=== PATIENT | female | born 1940 | race Caucasian/White ===

== ENCOUNTER 2017-07-14 12:24 | Emergency (ER) | payer BC ==
[~2017-07-14] VITALS: Ht 167.6 cm; Wt 42.0 kg
[~2017-07-14 12:24] MED LIST: ACET-1311 PO; ASPI81TA28 PO; BIOT1CAP8 PO; CALC-354 PO; CHOL1TAB2 PO; LAMO1TAB21 PO; MEGE40SU PO; PRLSR20 PO; SYN100 PO; TRET0.027 TOP
[2017-07-14 12:37] VITALS: TEMP 36.6; Ht 167.6 cm; Wt 42.0 kg
[2017-07-14] MEDS ORDERED: SODIUM CHLORIDE 0.9% 1000ML 1,000 ML IV STA (13:13)
--- NOTE | 2017-07-14 13:21 | EMERGENCY ROOM VISIT NOTE ---
History Report prepared by Princess: Neel Rizo Under the Supervision of: Dr. Tej Goodwin D.O. First contact with patient: 12:57 Chief Complaint: DIZZY Stated Complaint: DIZZY Nursing Triage Summary: pt reports she has been dizzy x 1 month worse today. fell last night in the dark fell onto buttock due to dizziness. Denies hitting head. Has also been losing weight over the past 10 months. History of Present Illness The patient is a 77 year old female who presents to the Emergency Room with complaints of dizziness that began 8 months ago. She notes that her dizziness has worsened recently over the past month. She has a past medical history of bipolar disorder and is taking Lamictal. She was sent to a psychologic hospital , but she was discharged saying her symptoms were a medical issue. She describes her dizziness and being off balance. She states she cannot walk or cook without difficulty. Nothing exacerbates her symptoms, but resting makes them better. She denies any chest pain or shortness of breath. She has been experiencing weight loss. She notes she has been having trouble with her right ear for two years but has not seen an ENT doctor. 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 Source of History: patient Onset: 8 months ago Position: other (global) Symptom Intensity: moderate Quality: other (Dizziness) Timing: worsening Associated Symptoms: No chest pain, No SOB Note: She is experiencing weight loss. Review of Systems See HPI for pertinent positives & negatives. A total of 10 systems reviewed and were otherwise negative. Past Medical & Surgical Medical Problems: (1) Bipolar disorder (2) Bladder cancer (3) Chronic obstructive lung disease (4) CKD (chronic kidney disease), stage IV (5) Dyslipidemia (6) Gastroesophageal reflux disease (7) History of kidney cancer (8) Hypothyroidism (9) Tobacco abuse (10) Urothelial cancer Surgical Problems: (1) H/O: hysterectomy (2) Hx of total knee arthroplasty (3) S/p nephrectomy Family History Diabetes mellitus FH: cancer FATHER (prostate CA) MOTHER (bone CA) Hypertension Social History Smoking Status: Current Every Day Smoker Smokeless Tobacco Use: No Alcohol Use: none Drug Use: none Marital Status: Housing Status: lives alone, lives with family Occupation Status: retired, other Current/Historical Medications Scheduled Aspirin (Aspirin Ec), 81 MG PO DAILY Biotin (Biotin), 1 MG PO DAILY Calcium Carbonate-Cholecalcife (Caltrate 600+D), 1 TAB PO DAILY Lamotrigine (Lamotrigine), 150 MG PO DAILY Levothyroxine Sodium (Levothyroxine Sodium), 88 MCG PO DAILY Tretinoin (Tretinoin), 1 APPLN TOP HS Scheduled PRN Acetaminophen (Tylenol), 650 MG PO Q4 PRN for Headache or Pain Allergies Coded Allergies: Penicillins (Verified Allergy, Mild, RASH, 07/14/17) pt stated has had more recently with no reaction Physical Exam Vital Signs Date Time Temp Pulse Resp B/P (MAP) Pulse Ox O2 Delivery O2 Flow Rate FiO2 07/14/17 15:02 76 20 156/79 95 07/14/17 13:42 77 20 120/77 98 Room Air 07/14/17 13:39 80 18 124/75 97 Room Air 78 147/60 85 120/77 07/14/17 13:01 99 07/14/17 12:37 36.6 108 18 151/87 99 Room Air Physical Exam GENERAL: Patient is awake, alert, and in no acute distress. Patient is resting comfortably and showing no signs of anxiety EYES: The conjunctivae are clear. The pupils are round and reactive. EARS, NOSE, MOUTH AND THROAT: The nose is without any evidence of any deformity. Mucous membranes are moist tongue is midline. TM's clear bilaterally. NECK: The neck is nontender and supple. RESPIRATORY: Normal respiratory effort is noted there is no evidence of wheezing rhonchi or rales CARDIOVASCULAR: Regular rate and rhythm noted there no murmurs rubs or gallops normal S1 normal S2 GASTROINTESTINAL: The abdomen is soft. Bowel sounds are present in all quadrants. Abdomen is nontender MUSCULOSKELETAL/EXTREMITIES: There is no evidence of gross deformity full range of motion is noted in the hips and shoulders SKIN: There is no obvious evidence of any rash. There are no petechiae, pallor or cyanosis noted. NEUROLOGIC: Patient is awake alert and oriented x3 strength is symmetric patellar reflexes are 2+ bilaterally Medical Decision & Procedures ER Provider Diagnostic Interpretation: Radiology results as stated below per my review and radiologist interpretation: CT OF THE HEAD WITHOUT CONTRAST CLINICAL HISTORY: Dizzy. Altered mental status. Weakness. COMPARISON STUDY: Head CT July 20, 2016. CT DOSE: 537.48 mGy.cm TECHNIQUE: Helical axial images of the head were obtained without IV contrast. Automated exposure control was utilized for the study. A dose lowering technique was utilized adhering to the principles of ALARA. FINDINGS: No acute intracranial hemorrhage, midline shift or mass effect is present. Ventricular system is normal for age. Basilar cisterns are patent. There are no extra-axial collections. White matter hypodensity suggests small vessel disease. There are no findings to suggest acute dural sinus thrombosis or acute territorial infarct. There is bilateral basal ganglia calcification. There is no calvarial fracture. Visualized portions of the sinuses and the mastoid air cells are clear. IMPRESSION: No acute intracranial findings. Electronically signed by: Lamont Alcazar M.D. 07/14/2017 1:43 PM Dictated Date/Time: 07/14/2017 1:41 PM CHEST ONE VIEW PORTABLE CLINICAL HISTORY: Dizzy. Altered mental status. COMPARISON STUDY: Chest radiograph September 19, 2016. FINDINGS: A left subclavian Sgrfki-s-Rdxz remains in place. There is no pneumothorax or pleural effusion. There is no consolidation to suggest pneumonia and there is no evidence of pulmonary edema. Levoscoliosis at the thoracolumbar junction is incidentally noted. IMPRESSION: No acute cardiopulmonary findings. Electronically signed by: Lamont Alcazar M.D. 07/14/2017 2:10 PM Dictated Date/Time: 07/14/2017 2:08 PM Laboratory Results 07/14/17 13:10 Red Blood Count 4.21, Mean Corpuscular Volume 99.8, Mean Corpuscular Hemoglobin 33.3, Mean Corpuscular Hemoglobin Concent 33.3, Mean Platelet Volume 10.0, Neutrophils (%) (Auto) 75.8, Lymphocytes (%) (Auto) 16.9, Monocytes (%) (Auto) 6.1, Eosinophils (%) (Auto) 0.6, Basophils (%) (Auto) 0.4, Neutrophils # (Auto) 3.86, Lymphocytes # (Auto) 0.86, Monocytes # (Auto) 0.31, Eosinophils # (Auto) 0.03, Basophils # (Auto) 0.02 07/14/17 13:10 Test 07/14/17 13:10 White Blood Count 5.09 K/uL (4.8-10.8) Red Blood Count 4.21 M/uL (4.2-5.4) Hemoglobin 14.0 g/dL (12.0-16.0) Hematocrit 42.0 % (37-47) Mean Corpuscular Volume 99.8 fL (80-100) Mean Corpuscular Hemoglobin 33.3 pg (25-34) Mean Corpuscular Hemoglobin Concent 33.3 g/dl (32-36) Platelet Count 289 K/uL (130-400) Mean Platelet Volume 10.0 fL (7.4-10.4) Neutrophils (%) (Auto) 75.8 % Lymphocytes (%) (Auto) 16.9 % Monocytes (%) (Auto) 6.1 % Eosinophils (%) (Auto) 0.6 % Basophils (%) (Auto) 0.4 % Neutrophils # (Auto) 3.86 K/uL (1.4-6.5) Lymphocytes # (Auto) 0.86 K/uL (1.2-3.4) Monocytes # (Auto) 0.31 K/uL (0.11-0.59) Eosinophils # (Auto) 0.03 K/uL (0-0.5) Basophils # (Auto) 0.02 K/uL (0-0.2) RDW Standard Deviation 48.1 fL (36.4-46.3) RDW Coefficient of Variation 13.1 % (11.5-14.5) Immature Granulocyte % (Auto) 0.2 % Immature Granulocyte # (Auto) 0.01 K/uL (0.00-0.02) Prothrombin Time 9.7 SECONDS (9.0-12.0) Prothromb Time International Ratio 0.9 (0.9-1.1) Activated Partial Thromboplast Time 23.7 SECONDS (21.0-31.0) Partial Thromboplastin Ratio 0.9 Anion Gap 7.0 mmol/L (3-11) Est Creatinine Clear Calc Drug Dose 18.1 ml/min Estimated GFR () 32.9 Estimated GFR (Non- 28.4 BUN/Creatinine Ratio 24.8 (10-20) Calcium Level 10.2 mg/dl (8.5-10.1) Magnesium Level 2.3 mg/dl (1.8-2.4) Total Bilirubin 0.4 mg/dl (0.2-1) Direct Bilirubin 0.1 mg/dl (0-0.2) Aspartate Amino Transf (AST/SGOT) 19 U/L (15-37) Alanine Aminotransferase (ALT/SGPT) 23 U/L (12-78) Alkaline Phosphatase 68 U/L (45-117) Troponin I < 0.015 ng/ml (0-0.045) Total Protein 8.6 gm/dl (6.4-8.2) Albumin 4.5 gm/dl (3.4-5.0) Thyroid Stimulating Hormone (TSH) 3.260 uIu/ml (0.300-4.500) Laboratory results per my review. Medications Administered Medications (Trade) Dose Ordered Sig/Kim Route Start Time Stop Time Status Last Admin Dose Admin Sodium Chloride 1,000 ml @ 999 mls/hr Q1H1M STAT IV 07/14/17 13:13 07/14/17 14:13 DC 07/14/17 13:15 999 MLS/HR ECG Indication: other (Dizziness) Rate (beats per minute): 98 Rhythm: normal sinus Findings: no ectopy, other (No acute STS) Comparison ECG Date: 19 Sep 2016 Change: no significant change ED Course 1257: The patient was evaluated in room C2B. A complete history and physical examination were performed. 1313: Ordered NSS 1,000 ml @ 999 mls/hr IV 1500: Upon reevaluation, the patient is resting. I discussed the results and treatment plan with her. She verbalized agreement of the treatment plan. She was discharged home. Medical Decision Differential diagnosis: Etiologies such as benign positional vertigo, dehydration, hypovolemia, anemia, tumor, infection, hypoglycemia, electrolyte abnormalities, cardiac sources, intracerebral event, toxicologic, neurologic, as well as others were entertained. Nursing notes reviewed. The patient is a 77-year-old female who presented to the emergency department for dizziness. She describes dizziness which sounds similar to disequilibrium or vertigo. She had no focal neurologic deficit. The patient states that she's had similar episodes in the past. I discussed the patient's laboratory and radiographic studies with her. She was reevaluated multiple times. She was encouraged to rest and avoid any strenuous activity. She was treated with IV fluids. She was encouraged to follow-up with the family doctor soon as possible return to emergency apartment immediately if symptoms change worsen or the need arises. Medication Reconcilliation Current Medication List: was personally reviewed by me Blood Pressure Screening Patient's blood pressure: Elevated blood pressure Blood pressure disposition: Elevated BP felt to be situational Impression Primary Impression: Dizziness Scribe Attestation The scribe's documentation has been prepared under my direction and personally reviewed by me in its entirety. I confirm that the note above accurately reflects all work, treatment, procedures, and medical decision making performed by me. Departure Information Dispostion Home / Self-Care Referrals Aries Blake D.O. Forms HOME CARE DOCUMENTATION FORM, IMPORTANT VISIT INFORMATION Patient Instructions ED Dizziness [facility], My [facility] Additional Instructions Continue all medications as prescribed. Call your family to schedule a follow-up appointment. Drink plenty clear liquids.
[2017-07-14 13:41] LABS: BASO % 0.4 %; BASO ABS # 0.02 K/uL (0-0.2); COMPLETE YES; EOS % 0.6 %; IG% 0.2 %; LYMPH % 16.9 %; LYMPH ABS # 0.86 K/uL (1.2-3.4); MEAN CELL VOLUME 99.8 fL (80-100); MEAN CORPUSCULAR HEMOGLOBIN 33.3 pg (25-34); MEAN CORPUSCULAR HGB CONC 33.3 g/dl (32-36); MONO % 6.1 %; NEUT % 75.8 %; PLATELET COUNT 289 K/uL (130-400); RED BLOOD COUNT 4.21 M/uL (4.2-5.4); WHITE BLOOD COUNT 5.09 K/uL (4.8-10.8)
--- NOTE | 2017-07-14 13:44 | DIAGNOSTIC IMAGING REPORT ---
CT OF THE HEAD WITHOUT CONTRAST CLINICAL HISTORY: Dizzy. Altered mental status. Weakness. COMPARISON STUDY: Head CT July 20, 2016. CT DOSE: 537.48 mGy.cm TECHNIQUE: Helical axial images of the head were obtained without IV contrast. Automated exposure control was utilized for the study. A dose lowering technique was utilized adhering to the principles of ALARA. FINDINGS: No acute intracranial hemorrhage, midline shift or mass effect is present. Ventricular system is normal for age. Basilar cisterns are patent. There are no extra-axial collections. White matter hypodensity suggests small vessel disease. There are no findings to suggest acute dural sinus thrombosis or acute territorial infarct. There is bilateral basal ganglia calcification. There is no calvarial fracture. Visualized portions of the sinuses and the mastoid air cells are clear. IMPRESSION: No acute intracranial findings. Electronically signed by: Lamont Alcazar M.D. 07/14/2017 1:43 PM Dictated Date/Time: 07/14/2017 1:41 PM
[2017-07-14 13:59] LABS: ALT/SGPT 23 U/L (12-78); BLOOD UREA NITROGEN 42 mg/dl (7-18); BUN/CREATININE RATIO 24.8 (10-20); CALCIUM 10.2 mg/dl (8.5-10.1); CARBON DIOXIDE 24 mmol/L (21-32); CHLORIDE 108 mmol/L (98-107); GLUCOSE 114 mg/dl (70-99); MAGNESIUM 2.3 mg/dl (1.8-2.4); POTASSIUM 4.2 mmol/L (3.5-5.1); SODIUM 139 mmol/L (136-145)
[2017-07-14 14:10] LABS: ALKALINE PHOSPHATASE 68 U/L (45-117); AST/SGOT 19 U/L (15-37)
--- NOTE | 2017-07-14 14:11 | DIAGNOSTIC IMAGING REPORT ---
CHEST ONE VIEW PORTABLE CLINICAL HISTORY: Dizzy. Altered mental status. COMPARISON STUDY: Chest radiograph September 19, 2016. FINDINGS: A left subclavian Doyvjc-w-Jend remains in place. There is no pneumothorax or pleural effusion. There is no consolidation to suggest pneumonia and there is no evidence of pulmonary edema. Levoscoliosis at the thoracolumbar junction is incidentally noted. IMPRESSION: No acute cardiopulmonary findings. Electronically signed by: Lamont Alcazar M.D. 07/14/2017 2:10 PM Dictated Date/Time: 07/14/2017 2:08 PM
[2017-07-14 14:13] LABS: INR 0.9 (0.9-1.1); PARTIAL THROMBOPLASTIN RATIO 0.9; PROTHROMBIN TIME (PATIENT) 9.7 SECONDS (9.0-12.0)
[2017-07-14] MEDS ORDERED: LEVO88TA3 PO (14:15)
[2017-07-14 15:02] VITALS: BP 156/79; PULSE 76; O2SAT 95
== END 2017-07-14 15:05 | disposition home or self-care (01) ==
LOC: EDUNIT# 12:24 → C.EDB 12:24 → C.EDC 15:05
DX: R42 Dizziness and giddiness (principal); F31.9 Bipolar disorder, unspecified; Z85.51 Personal history of malignant neoplasm of bladder; J44.9 Chronic obstructive pulmonary disease, unspecified; N18.4 Chronic kidney disease, stage 4 (severe); E78.5 Hyperlipidemia, unspecified; K21.9 Gastro-esophageal reflux disease without esophagitis; Z85.528 Personal history of other malignant neoplasm of kidney; E03.9 Hypothyroidism, unspecified; Z83.3 Family history of diabetes mellitus; Z82.49 Family history of ischemic heart disease and other diseases of the circulatory system; Z80.9 Family history of malignant neoplasm, unspecified; F17.210 Nicotine dependence, cigarettes, uncomplicated; Z79.82 Long term (current) use of aspirin; Z79.899 Other long term (current) drug therapy

== ENCOUNTER → 2017-07-31 | Outpatient (CLI) | payer BC ==
[~2017-07-31] MED LIST changes: -CHOL1TAB2 PO; +LEVO88TA3 PO; -MEGE40SU PO; -PRLSR20 PO; -SYN100 PO
--- NOTE | 2017-07-31 14:55 | ECHOCARDIOGRAM REPORT ---
*NOTICE TO RECEIVING REPUBLICAN AGENCY This information is strictly Confidential and protected under [place] law. [place] law prohibits you from making any further disclosure of this information unless further disclosure is expressly permitted by the written consent of the person to whom it pertains or is authorized by law. A general authorization for the release of medical or other information is not sufficient for this purpose. Hospital accepts no responsibility if the information is made available to any other person, INCLUDING THE PATIENT. Interpretation Summary * Name: ANNA LUA Study Date: 07/31/2017 12:35 PM BP: 140/76 mmHg * Patient Location: [facility] HR: 74 * : 1940 (M/d/yyyy) Gender: Female Height: 65 in * Age: 77 yrs Ethnicity: [place] Weight: 98 lb * Ordering Physician: Aries Blake * Referring Physician: Aries Blake D.O. * Performed By: Laura Mcgill * * Reason For Study: ABNORMAL EKG, DIZZINESS * BSA: 1.5 m2 * -- Conclusions -- * 1. Normal left ventricular size and systolic function. EF 60-65%. No regional wall motion abnormalities. No left ventricular hypertrophy. Type 1 diastolic dysfunction. * 2. Aortic valve sclerosis mild, without significant aortic valvular stenosis. * 3. There is mild mitral regurgitation. * 4. Normal estimated right ventricular systolic pressure. Procedure Details * A complete two-dimensional transthoracic echocardiogram was performed (2D, M-mode, Doppler and color flow Doppler). Left Ventricle * Normal left ventricular size and systolic function. EF 60-65%. No regional wall motion abnormalities. No left ventricular hypertrophy. Type 1 diastolic dysfunction. Right Ventricle * The right ventricle is normal in size and function. Atria * The left atrial size is normal. * Right atrial size is normal. * There is no evidence of atrial septal defect, but resolution does not allow assessment for a patent foramen ovale. Mitral Valve * The mitral valve is grossly normal. * Mild systolic anterior motion of chordal structure without LVOT obstruction. * There is no mitral valve stenosis. * There is mild mitral regurgitation. Tricuspid Valve * The tricuspid valve is not well visualized, but is grossly normal. * There is no tricuspid stenosis. * There is mild tricuspid regurgitation. Aortic Valve * The aortic valve is trileaflet. * Aortic valve sclerosis mild, without significant aortic valvular stenosis. * No hemodynamically significant valvular aortic stenosis. * There is no significant aortic regurgitation. Pulmonic Valve * The pulmonary valve is inadequately visualized, but the Doppler data is adequate for interpretation. * There is no pulmonic valvular stenosis. * There is no significant pulmonary regurgitation. Great Vessels * The aortic root is normal size. Pericardium/Pleural * There is no pericardial effusion. Great Vessels * Normal inferior vena cava size and collapsability with sniff indicates a normal right atrial pressure of 3 mmHg MMode 2D Measurements and Calculations IVSd 0.72 cm IVSs 1.4 cm LVIDd 3.9 cm LVIDs 1.8 cm LVPWd 0.79 cm LVPWs 1.4 cm IVS/LVPW 0.91 FS 54.7 % EDV(Teich) 64.6 ml ESV(Teich) 9.1 ml EF(Teich) 86.0 % EDV(cubed) 57.9 ml ESV(cubed) 5.4 ml EF(cubed) 90.7 % % IVS thick 98.7 % % LVPW thick 79.4 % LV mass(C)d 82.4 grams LV mass(C)dI 56.4 grams/m\S\2 LV mass(C)s 77.8 grams LV mass(C)sI 53.3 grams/m\S\2 SV(Teich) 55.6 ml SI(Teich) 38.0 ml/m\S\2 SV(cubed) 52.5 ml SI(cubed) 35.9 ml/m\S\2 Ao root diam 3.1 cm Ao root area 7.6 cm\S\2 ACS 1.6 cm LA dimension 2.5 cm LA/Ao 0.80 LVOT diam 1.8 cm LVOT area 2.4 cm\S\2 LVAd ap4 22.3 cm\S\2 LVLd ap4 6.6 cm EDV(MOD-sp4) 62.8 ml EDV(sp4-el) 64.7 ml LVAs ap4 12.6 cm\S\2 LVLs ap4 5.8 cm ESV(MOD-sp4) 24.3 ml ESV(sp4-el) 23.9 ml EF(MOD-sp4) 61.3 % EF(sp4-el) 63.1 % LVAd ap2 18.5 cm\S\2 LVLd ap2 6.8 cm EDV(MOD-sp2) 43.3 ml EDV(sp2-el) 42.7 ml LVAs ap2 9.7 cm\S\2 LVLs ap2 5.2 cm ESV(MOD-sp2) 16.1 ml ESV(sp2-el) 15.3 ml EF(MOD-sp2) 62.8 % EF(sp2-el) 64.1 % LVLd %diff 3.6 % EDV(MOD-bp) 56.6 ml LVLs %diff -14.05 % ESV(MOD-bp) 18.7 ml EF(MOD-bp) 67.0 % SV(MOD-sp4) 38.5 ml SI(MOD-sp4) 26.3 ml/m\S\2 SV(MOD-sp2) 27.2 ml SI(MOD-sp2) 18.6 ml/m\S\2 SV(MOD-bp) 37.9 ml SI(MOD-bp) 26.0 ml/m\S\2 SV(sp4-el) 40.8 ml SI(sp4-el) 27.9 ml/m\S\2 SV(sp2-el) 27.4 ml SI(sp2-el) 18.7 ml/m\S\2 Doppler Measurements and Calculations MV E max jerri 70.5 cm/sec MV A max jerri 90.6 cm/sec MV E/A 0.78 MV dec time 0.20 sec Ao V2 max 94.5 cm/sec Ao max PG 3.6 mmHg Ao max PG (full) 1.1 mmHg JOSE(V,A) 2.0 cm\S\2 JOSE(V,D) 2.0 cm\S\2 LV V1 max PG 2.4 mmHg LV V1 max 78.0 cm/sec MR max jerri 567.7 cm/sec MR max PG 128.9 mmHg PA V2 max 45.0 cm/sec PA max PG 0.81 mmHg TR max jerri 223.7 cm/sec RVSP(TR) 23.0 mmHg RAP systole 3.0 mmHg
== END | disposition home or self-care (01) ==
LOC: C.CPL 12:13
PROVIDERS: ATTEND Internal Medicine
DX: R42 Dizziness and giddiness (principal); R94.31 Abnormal electrocardiogram [ECG] [EKG]

== ENCOUNTER → 2017-10-12 | Outpatient (CLI) | payer BC ==
[2017-10-12 16:55] LABS: ALT/SGPT 18 U/L (12-78); BLOOD UREA NITROGEN 45 mg/dl (7-18); CALCIUM 10.9 mg/dl (8.5-10.1); CARBON DIOXIDE 26 mmol/L (21-32); CHLORIDE 106 mmol/L (98-107); CREATININE 1.68 mg/dl (0.60-1.20); GLUCOSE 99 mg/dl (70-99); POTASSIUM 4.4 mmol/L (3.5-5.1); SODIUM 140 mmol/L (136-145)
[2017-10-12 16:58] LABS: ALB/GLOB RATIO 1.1 (0.9-2); ALKALINE PHOSPHATASE 82 U/L (45-117); AST/SGOT 12 U/L (15-37)
== END | disposition home or self-care (01) ==
LOC: C.LAB 15:06
PROVIDERS: ATTEND Urology
DX: C64.9 Malignant neoplasm of unspecified kidney, except renal pelvis (principal); C67.9 Malignant neoplasm of bladder, unspecified

== ENCOUNTER → 2017-10-23 | Outpatient (CLI) | payer BC ==
--- NOTE | 2017-10-23 13:43 | DIAGNOSTIC IMAGING REPORT ---
CT SCAN OF THE ABDOMEN AND PELVIS WITHOUT IV CONTRAST CLINICAL HISTORY: History of urothelial carcinoma. COMPARISON STUDY: Abdominal CT dated . PET CT dated 02/05/2013. TECHNIQUE: CT scan of the abdomen and pelvis is performed from the lung bases to the proximal femora. Images reviewed in the axial, sagittal, and coronal planes. IV contrast was not administered for this examination as per the referring clinician. Note that the examination is suboptimal without oral and IV contrast. The examination is degraded by motion artifact. A dose lowering protocol was used according to the presence of ALARA. CT DOSE: 186.00 mGycm FINDINGS: Lung bases: The heart is normal in size and without pericardial effusion. The aortic valve leaflets are densely calcified. Scarring/atelectasis is again seen in the right middle lobe. No airspace consolidation or pleural effusion is identified. Liver: The unenhanced liver is normal in size, contour, and attenuation. There is no intrahepatic biliary ductal dilatation. Gallbladder: Distended and grossly unremarkable. Spleen: Normal in size and attenuation. Pancreas: The unenhanced pancreas is atrophic and grossly unremarkable. Adrenal glands: Unremarkable. Kidneys: Left kidney is surgically absent. The unenhanced right kidney demonstrate mild cortical atrophy and is without hydronephrosis. There is a right-sided extrarenal pelvis. No right renal calculi are Identified. There is no evidence of contour deforming renal mass lesion. Abdominal vasculature: The abdominal aorta is normal in course and caliber noting advanced atherosclerotic calcification. Bowel: The small bowel and colon are normal in course and caliber. There is moderate constipation. The appendix is well-visualized and normal. Peritoneum: There is no intraperitoneal free air or abdominal ascites. Lymphadenopathy: A mildly enlarged aortocaval node is questioned on image #99 measuring 1.3 cm in short axis. Pelvic viscera: The bladder is normal as visualized. Calcified uterine fibroids are identified. No adnexal lesion is seen. Surgical clips are present in the left pelvis. A stimulator device is present in the right gluteal region. Leads terminate in the right pelvis. The iliopsoas musculature is markedly atrophic. Pelvic floor prolapse is suggested. Skeletal structures: The skeletal structures are osteopenic. No lytic or blastic bony lesions are seen. There is advanced lumbosacral spondylosis as well as scoliosis. There is a moderate and chronic compression deformity again seen involving T12. Soft tissues: The patient is cachectic. IMPRESSION: 1. Suboptimal examination without oral and IV contrast. The examination is also degraded by motion artifact. 2. Mildly enlarged retroperitoneal lymph nodes are identified but difficult to assess. The retrocaval node seen on 01/22/2016 is not well delineated. 3. The left kidney is surgically absent. 4. There are no acute infectious or inflammatory findings in the abdomen or pelvis. 5. Additional changes as detailed above. Electronically signed by: Gregory Freeman M.D. 10/23/2017 1:41 PM Dictated Date/Time: 10/23/2017 1:24 PM
== END | disposition home or self-care (01) ==
LOC: C.CTS 12:50
PROVIDERS: ATTEND Urology
DX: C67.9 Malignant neoplasm of bladder, unspecified (principal); C64.9 Malignant neoplasm of unspecified kidney, except renal pelvis; N39.0 Urinary tract infection, site not specified

== ENCOUNTER 2018-03-06 11:40 | Inpatient (IN) | payer BC, OTHER ==
[~2018-03-06] VITALS: Ht 167.6 cm; Wt 43.2 kg
[2018-03-06] MEDS ORDERED: QUET1TAB30 PO (12:03)
[2018-03-06] MEDS ORDERED: LITH150C PO (12:03)
[2018-03-06] MEDS ORDERED: LMC25 PO (12:03)
[2018-03-06] MEDS ORDERED: VLM5CL PO (12:03)
[2018-03-06] MEDS ORDERED: SODIUM CHLORIDE 0.9% 1000ML 1,000 ML IV STA (12:19)
[2018-03-06 12:36] LABS: BASO % 0.4 %; BASO ABS # 0.03 K/uL (0-0.2); EOS % 1.4 %; EOS ABS # 0.11 K/uL (0-0.5); HEMATOCRIT 38.8 % (37-47); HEMOGLOBIN 12.3 g/dL (12.0-16.0); IG# 0.01 K/uL (0.00-0.02); LYMPH % 15.9 %; LYMPH ABS # 1.29 K/uL (1.2-3.4); MEAN CELL VOLUME 104.6 fL (80-100); MEAN CORPUSCULAR HEMOGLOBIN 33.2 pg (25-34); MEAN CORPUSCULAR HGB CONC 31.7 g/dl (32-36); MEAN PLATELET VOLUME 9.5 fL (7.4-10.4); MONO % 4.9 %; NEUT % 77.3 %; NEUT ABS # 6.27 K/uL (1.4-6.5); PLATELET COUNT 283 K/uL (130-400); RED CELL DISTRIBUTION WIDTH CV 13.5 % (11.5-14.5); RED CELL DISTRIBUTION WIDTH SD 51.4 fL (36.4-46.3); WHITE BLOOD COUNT 8.11 K/uL (4.8-10.8)
[2018-03-06 12:45] LABS: INR 0.9 (0.9-1.1); PTT PATIENT 23.6 SECONDS (21.0-31.0)
[2018-03-06 12:57] LABS: ALBUMIN 4.3 gm/dl (3.4-5.0); ALT/SGPT 28 U/L (12-78); BLOOD UREA NITROGEN 33 mg/dl (7-18); CARBON DIOXIDE 25 mmol/L (21-32); CREATININE 1.58 mg/dl (0.60-1.20); GLUCOSE 98 mg/dl (70-99); POTASSIUM 4.2 mmol/L (3.5-5.1); SODIUM 141 mmol/L (136-145)
[2018-03-06 13:02] LABS: ALKALINE PHOSPHATASE 95 U/L (45-117); AST/SGOT 25 U/L (15-37); TOTAL PROTEIN 8.2 gm/dl (6.4-8.2)
--- NOTE | 2018-03-06 13:24 | DIAGNOSTIC IMAGING REPORT ---
HEAD WITHOUT CONTRAST (CT) CLINICAL HISTORY: 77 years-old Female presenting with AMS, dizziness. TECHNIQUE: Multidetector CT imaging of the head was performed without the use of intravenous contrast. IV contrast: None. A dose lowering technique was used consistent with the principles of ALARA (as low as reasonably achievable). COMPARISON: 07/14/2017. CT DOSE (mGy.cm): The estimated cumulative dose is 958.25 mGy.cm. FINDINGS: [employer] topogram: Unremarkable. Ventricles and sulci normal in size. Periventricular and subcortical white matter hypoattenuation, nonspecific but likely indicative of chronic small vessel ischemic change. No mass effect or midline shift. No hemorrhage or acute territorial infarct. No extra-axial fluid collection. Paranasal sinuses and mastoid air cells clear. Calvarium intact. IMPRESSION: 1. Chronic small vessel ischemic change. No acute intracranial abnormality. Electronically signed by: Paul Lam M.D. 03/06/2018 1:23 PM Dictated Date/Time: 03/06/2018 1:19 PM
--- NOTE | 2018-03-06 13:53 | DIAGNOSTIC IMAGING REPORT ---
CHEST ONE VIEW PORTABLE HISTORY: 77 years-old Female AMS acute altered mental status COMPARISON: Chest radiograph 07/14/2017 TECHNIQUE: Portable AP view of the chest FINDINGS: Cardiomediastinal and hilar silhouettes are within normal limits. Atherosclerosis of the aorta. Unchanged positioning of the left subclavian Lzsing-y-Ognj catheter. There is no pneumothorax, pleural effusion, focal airspace consolidation or overt pulmonary edema. Nodular density projecting over the anterior right sixth rib may reflect a nipple shadow. There is an ill-defined 2.4 x 2.2 cm opacity of the right perihilar lung which appears new from prior study. Minimal background interstitial coarsening with hyperinflation redemonstrated. Bones of the chest appear grossly intact. Degenerative changes are seen within the shoulders and spine. Suspected rotator cuff calcific tendinosis on the right. IMPRESSION: Ill-defined 2.4 cm round opacity of the right perihilar lung is indeterminate. This could be further evaluated with a follow-up chest CT. The above report was generated using voice recognition software. It may contain grammatical, syntax or spelling errors. Electronically signed by: Rene Royal M.D. 03/06/2018 1:52 PM Dictated Date/Time: 03/06/2018 1:48 PM
[2018-03-06] MEDS ORDERED: SODIUM CHLORIDE 0.9% 1000ML 1,000 ML IV SCH (15:00)
[2018-03-06] MEDS ORDERED: ALUMINUM/MAGNESIUM/SIMETH (MAALOX MAX) 30 ML UDC PO PRN (15:00)
[2018-03-06] MEDS ORDERED: ONDANSETRON INJ 2 MG/ML 2 ML VIAL IV PRN (15:00)
[2018-03-06] MEDS ORDERED: MAGNESIUM HYDROXIDE SUSP 30 ML UDC PO PRN (15:00)
--- NOTE | 2018-03-06 15:19 | EMERGENCY ROOM VISIT NOTE ---
History Report prepared by Princess: Mo Saunders Under the Supervision of: Dr. Vladimir Saavedra D.O. First contact with patient: 12:12 Chief Complaint: ALTERED MENTAL STATUS Stated Complaint: CONFUSION Nursing Triage Summary: Patient to ED via EMS from provider, EMS states "patient was at a dentist's office for an appointment on with her psychiatrist, acting confused and agitated." Patient oriented to self at time of triage, believes it is and she is at [facility]. C/O dizziness, reports fall four days ago, states "I hurt my legs, both of them." History of Present Illness The patient is a 77 year old female who presents to the Emergency Room by EMS with complaints of constant altered mental status. She also complains of dizziness. She is noted to have fallen four days ago. The patient lives alone at home. Per EMS report, the patient has an appointment with her psychiatrist tomorrow. They state that the patient showed up to her dentist's office today for the psychiatrist appointment tomorrow. EMS was called to get the patient. Pt denies pain with urination. HPI limited secondary to altered mental status. Source of History: patient History Limited By: AMS Quality: other (altered mental status) Timing: constant Associated Symptoms: No urinary symptoms (pain with urination) Note: Positive: dizziness. Review of Systems ROS limited secondary to AMS. 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 Surgical Problems: (1) H/O: hysterectomy (2) Hx of total knee arthroplasty (3) S/p nephrectomy Family History Diabetes mellitus FH: cancer FATHER (prostate CA) MOTHER (bone CA) Hypertension Social History Smoking Status: Current Every Day Smoker Alcohol Use: none Drug Use: none Marital Status: Housing Status: lives alone, lives with family Occupation Status: retired, other Current/Historical Medications Scheduled Aspirin (Aspirin Ec), 81 MG PO DAILY Biotin (Biotin), 1 MG PO DAILY Calcium Carbonate-Cholecalcife (Caltrate 600+D), 1 TAB PO DAILY Diazepam (Diazepam), 5 MG PO DAILY Lamotrigine (Lamotrigine), 25 MG PO HS Levothyroxine Sodium (Levothyroxine Sodium), 88 MCG PO DAILY Homeworth Carbonate (Homeworth Carbonate), 150 MG PO BID Quetiapine Fumarate (Seroquel), 25 MG PO HS Scheduled PRN Acetaminophen (Tylenol), 650 MG PO Q4 PRN for Headache or Pain Allergies Coded Allergies: Penicillins (Verified Allergy, Mild, RASH, 07/14/17) pt stated has had more recently with no reaction Physical Exam Vital Signs Date Time Temp Pulse Resp B/P (MAP) Pulse Ox O2 Delivery O2 Flow Rate FiO2 03/06/18 14:19 90 21 132/64 100 Room Air 03/06/18 13:25 70 22 132/64 99 Room Air 03/06/18 12:03 78 03/06/18 12:00 100 03/06/18 11:55 37.0 78 24 164/85 99 Room Air Physical Exam GENERAL: Sitting up in bed, lethargic, responds to verbal commands. EYE EXAM: normal conjunctiva. PERRL and EOM's intact. OROPHARYNX: no exudate, no erythema, lips, buccal mucosa, and tongue normal and mucous membranes are dry. NECK: supple, no nuchal rigidity, no adenopathy, non-tender LUNGS: Clear to auscultation. Normal chest wall mechanics HEART: no murmurs, S1 normal and S2 normal ABDOMEN: abdomen soft, non-tender, normo-active bowel sounds, no masses, no rebound or guarding. BACK: Back is symmetrical on inspection and there is no deformity, no midline tenderness, no CVA tenderness. SKIN: no rashes and no bruising UPPER EXTREMITIES: upper extremities are grossly normal. LOWER EXTREMITIES: No pitting edema. NEURO EXAM: Awake, not oriented to place or time. CN 2-12 intact. No weakness in the upper or lower extremities. Medical Decision & Procedures ER Provider Diagnostic Interpretation: Radiology results as stated below per my review and the radiologist's interpretation: HEAD WITHOUT CONTRAST (CT) FINDINGS: Disassembler topogram: Unremarkable. Ventricles and sulci normal in size. Periventricular and subcortical white matter hypoattenuation, nonspecific but likely indicative of chronic small vessel ischemic change. No mass effect or midline shift. No hemorrhage or acute territorial infarct. No extra-axial fluid collection. Paranasal sinuses and mastoid air cells clear. Calvarium intact. IMPRESSION: 1. Chronic small vessel ischemic change. No acute intracranial abnormality. Electronically signed by: Paul Lam M.D. 03/06/2018 1:23 PM CHEST ONE VIEW PORTABLE FINDINGS: Cardiomediastinal and hilar silhouettes are within normal limits. Atherosclerosis of the aorta. Unchanged positioning of the left subclavian Lvhlus-y-Fygw catheter. There is no pneumothorax, pleural effusion, focal airspace consolidation or overt pulmonary edema. Nodular density projecting over the anterior right sixth rib may reflect a nipple shadow. There is an ill-defined 2.4 x 2.2 cm opacity of the right perihilar lung which appears new from prior study. Minimal background interstitial coarsening with hyperinflation redemonstrated. Bones of the chest appear grossly intact. Degenerative changes are seen within the shoulders and spine. Suspected rotator cuff calcific tendinosis on the right. IMPRESSION: Ill-defined 2.4 cm round opacity of the right perihilar lung is indeterminate. This could be further evaluated with a follow-up chest CT. The above report was generated using voice recognition software. It may contain grammatical, syntax or spelling errors. Electronically signed by: Rene Royal M.D. 03/06/2018 1:52 PM Laboratory Results 03/06/18 12:28 Red Blood Count 3.71, Mean Corpuscular Volume 104.6, Mean Corpuscular Hemoglobin 33.2, Mean Corpuscular Hemoglobin Concent 31.7, Mean Platelet Volume 9.5, Neutrophils (%) (Auto) 77.3, Lymphocytes (%) (Auto) 15.9, Monocytes (%) ( Auto) 4.9, Eosinophils (%) (Auto) 1.4, Basophils (%) (Auto) 0.4, Neutrophils # ( Auto) 6.27, Lymphocytes # (Auto) 1.29, Monocytes # (Auto) 0.40, Eosinophils # ( Auto) 0.11, Basophils # (Auto) 0.03 03/06/18 12:28 Test 03/06/18 12:28 03/06/18 12:39 03/06/18 14:51 White Blood Count 8.11 K/uL (4.8-10.8) Red Blood Count 3.71 M/uL (4.2-5.4) Hemoglobin 12.3 g/dL (12.0-16.0) Hematocrit 38.8 % (37-47) Mean Corpuscular Volume 104.6 fL (80-100) Mean Corpuscular Hemoglobin 33.2 pg (25-34) Mean Corpuscular Hemoglobin Concent 31.7 g/dl (32-36) Platelet Count 283 K/uL (130-400) Mean Platelet Volume 9.5 fL (7.4-10.4) Neutrophils (%) (Auto) 77.3 % Lymphocytes (%) (Auto) 15.9 % Monocytes (%) (Auto) 4.9 % Eosinophils (%) (Auto) 1.4 % Basophils (%) (Auto) 0.4 % Neutrophils # (Auto) 6.27 K/uL (1.4-6.5) Lymphocytes # (Auto) 1.29 K/uL (1.2-3.4) Monocytes # (Auto) 0.40 K/uL (0.11-0.59) Eosinophils # (Auto) 0.11 K/uL (0-0.5) Basophils # (Auto) 0.03 K/uL (0-0.2) RDW Standard Deviation 51.4 fL (36.4-46.3) RDW Coefficient of Variation 13.5 % (11.5-14.5) Immature Granulocyte % (Auto) 0.1 % Immature Granulocyte # (Auto) 0.01 K/uL (0.00-0.02) Prothrombin Time 9.9 SECONDS (9.0-12.0) Prothromb Time International Ratio 0.9 (0.9-1.1) Activated Partial Thromboplast Time 23.6 SECONDS (21.0-31.0) Partial Thromboplastin Ratio 0.9 Anion Gap 4.0 mmol/L (3-11) Est Creatinine Clear Calc Drug Dose 21.9 ml/min Estimated GFR () 35.9 Estimated GFR (Non- 31.0 BUN/Creatinine Ratio 21.0 (10-20) Calcium Level 11.0 mg/dl (8.5-10.1) Magnesium Level 2.2 mg/dl (1.8-2.4) Total Bilirubin 0.4 mg/dl (0.2-1) Direct Bilirubin < 0.1 mg/dl (0-0.2) Aspartate Amino Transf (AST/SGOT) 25 U/L (15-37) Alanine Aminotransferase (ALT/SGPT) 28 U/L (12-78) Alkaline Phosphatase 95 U/L (45-117) Troponin I < 0.015 ng/ml (0-0.045) Total Protein 8.2 gm/dl (6.4-8.2) Albumin 4.3 gm/dl (3.4-5.0) Chemistry Specimen Hemolysis Homeworth Level 1.3 mMOL/L (0.6-1.2) Urine Color YELLOW Urine Appearance CLEAR (CLEAR) Urine pH 6.0 (4.5-7.5) Urine Specific [place] 1.015 (1.000-1.030) Urine Protein NEG (NEG) Urine Glucose (UA) NEG (NEG) Urine Ketones NEG (NEG) Urine Occult Blood TRACE (NEG) Urine Nitrite NEG (NEG) Urine Bilirubin NEG (NEG) Urine Urobilinogen NEG (NEG) Urine Leukocyte Esterase NEG (NEG) Urine RBC 0-4 /hpf (0-4) Urine WBC 1-5 /hpf (0-5) Urine Epithelial Cells 5-10 /lpf (0-5) Urine Bacteria NEG (NEG) Laboratory results per my review. Medications Administered Medications (Trade) Dose Ordered Sig/Kim Route Start Time Stop Time Status Last Admin Dose Admin Sodium Chloride 1,000 ml @ 999 mls/hr Q1H1M STAT IV 03/06/18 12:19 03/06/18 13:19 DC 03/06/18 12:54 999 MLS/HR ECG Per My Interpretation Indication: altered mental status Rate (beats per minute): 75 Rhythm: sinus rhythm Findings: Q waves (Septal), no ectopy, other (Normal axis. ) ED Course ED COURSE: Vital signs were reviewed and appeared normal. The patients medical record was reviewed The above diagnostic studies were performed and reviewed. ED treatments and interventions as stated above. 1214: The patient was evaluated in room C9. A complete history and physical examination was performed. 1219: Ordered Sodium Chloride 1000 ml @ 999 mls/hr IV. 1325: I reassessed the patient. She appears comfortable. I spoke with her granddaughter. She states that the patient has been confused for the past two weeks, and her confusion has been worsening. 1345: Upon reevaluation, the patient is resting comfortably. I discussed my findings with the patient and she understands and agrees with the treatment plan. Based on the patients age, coexisting illnesses, exam and lab findings the decision to treat as an inpatient was made. The patient remained stable while under my care. The patient will be evaluated for further management. Medical Decision Differential diagnoses includes but is not limited to toxic, metabolic, infectious, traumatic, cardiac, neurologic, hematologic, psychiatric and inflammatory etiologies. Patient is a 77-year-old female who presents the ER for altered mental status which has been worsening over the past 2 weeks. Patient is nonfocal. CBC along with BMP, LFTs, bilirubin are remarkable for a creatinine of 1.6. UA was negative. Homeworth slightly elevated at 1.3. CT head was negative. Chest x- ray unremarkable. No clear signs of infection. Uncertain of the etiology of the confusion although this does appear to be over the course of 2 weeks. Patient is dehydrated. She was given fluids. Discussed with internal medicine she will be observed overnight. Medication Reconcilliation Current Medication List: was personally reviewed by me Blood Pressure Screening Patient's blood pressure: Elevated blood pressure Blood pressure disposition: Elevated BP felt to be situational Consults Time Called: 1343 Consulting Physician: Sherice Nolan Hospitalist Returned Call: 1343 I reviewed the patient's case with Sherice Nolan will evaluate the patient for further management. Impression Primary Impression: Altered mental status Additional Impression: Dehydration Scribe Attestation The scribe's documentation has been prepared under my direction and personally reviewed by me in its entirety. I confirm that the note above accurately reflects all work, treatment, procedures, and medical decision making performed by me. Departure Information Dispostion Being Evaluated By Hospitalist Referrals Aries Blake D.O. (PCP) Patient Instructions My [facility] Problem Qualifiers Primary Impression: Altered mental status Altered mental status type: unspecified Qualified Codes: R41.82 - Altered mental status, unspecified
[2018-03-06] MEDS ORDERED: FLUO10CA15 PO (15:25)
[2018-03-06] MEDS ORDERED: LAMO100T PO (15:25)
[2018-03-06] MEDS ORDERED: MGCL40 PO (15:25)
[2018-03-06] MEDS ORDERED: NRN100 PO (15:25)
[2018-03-06 16:30] VITALS: BP 131/74; PULSE 69; TEMP 36.6; O2SAT 100; Ht 167.6 cm; Wt 43.2 kg
--- NOTE | 2018-03-06 16:47 | History and Physical ---
History & Physical Date & Time of Service: Mar 06, 2018 at 15:38 Chief Complaint: Confusion Primary Care Physician: Aries Blake D.O. 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 Patient was transported to ER via EMS from dentist office. It is reported that patient went to the dentist office and thought she was at the psychiatrist's office and was confused on date and place. Patient reports that she got her days mixed up and thought today was , as she has an appointment with her psychiatrist . Patient knows she is in the ER, thinks she is at [facility]. Granddaughter reports has noticed gradual increased confusion with patient over the last couple months however increased confusion the past 2 weeks. Granddaughter reports visited patient last week and patient was noted to be drinking water out of a bowl. She reports this has noticed patient has been increase confused about time and place and forgetting people's names. Patient admits that this past week she was confused about a restaurant name and granddaughter confirms this. Patient with chronic decreased appetite for approximately 1-1/2 years. Granddaughter reports noticed that it started after patient's . Patient use to drink Ensure however stopped. Patient lives alone. Granddaughter reports that her father (patient's son) goes to patient's house every weekend and takes her grocery shopping. Granddaughter reports that patient has not been able to be taking care of herself and has not been bathing regularly or making herself meals. Granddaughter thinks the patient does her own medications. Granddaughter reports that there was discussion with patient in the past of her moving in with her son, and also discussion about patient receiving assistance in her own home but the patient has denied that previously. Granddaughter reports the patient has not been eating, and only eats when family members are around. She reports brought patient 2 subs yesterday which patient states she ate. Patient states that 2 days ago she ate a sub that the granddaughter brought however granddaughter states did not bring her anything 2 days ago and patient is confused on this. Daughter reports has noticed patient with weight loss which has been going on for some time she feels may have worsened over the past couple of weeks. Patient notes reviewed and patient's weight was 43.7 kg on 01/21/18. Hear in ER weight reported as 47.2 kg. Patient with history of chronic dizziness and gait disturbance and history of falls. Has seen Dr. Redd-neurology. EMG on 10/24/17: Normal, slight polyneuropathy. Patient unable to have MRI. CT scan head 10/08/17: No acute abnormality. Mild global volume loss and findings most commonly associated with chronic small vessel ischemic changes. Intracranial atherosclerotic disease. Patient reports falling a couple of times in the past week. Patient states sometimes she feels dizzy and falls and sometimes her legs feel weak causing her to fall. Denies hitting head or syncope. Denies any known injuries or current complaints of pain. Patient with history of bipolar disorder. She reports she has been taking her medications. Reports chronic sadness and intermittent anxiety. Denies any increase. Denies suicidal ideations. Reports follows with psychiatrist once monthly. Denies any recent med changes. Patient denies recent illnesses. Denies fever/chills, diaphoresis, N/V/D/C, JOHNSON, vision changes, neck pain, CP, SOB, orthopnea, palpitations, cough, sore throat , choking, otalgia, rhinorrhea, abdominal pain, extremity edema, rashes, urinary symptoms. Past Medical/Surgical History Medical Problems: (1) Bipolar disorder Status: Chronic (2) Bladder cancer Status: Chronic (3) Chronic obstructive lung disease Status: Chronic (4) CKD (chronic kidney disease), stage IV Status: Chronic (5) Dizziness Status: Chronic (6) Dyslipidemia Status: Chronic (7) Gastroesophageal reflux disease Status: Chronic (8) History of kidney cancer Status: Chronic (9) Hypothyroidism Status: Chronic (10) Tobacco abuse Status: Chronic (11) Urothelial cancer Status: Chronic Surgical Problems: (1) H/O: hysterectomy Status: Chronic (2) Hx of total knee arthroplasty Status: Chronic (3) S/p nephrectomy Permanent Comment: Left Status: Chronic Family History Diabetes mellitus FH: cancer FATHER (prostate CA) MOTHER (bone CA) Hypertension Social History Smoking Status: Current Every Day Smoker (1ppd x 30 years) Smokeless Tobacco Use: No Alcohol Use: none Drug Use: none Marital Status: Housing status: lives alone Occupational Status: retired Immunizations History of Influenza Vaccine: No Influenza Vaccine Date: Aug 13, 2012 History of Tetanus Vaccine?: Unknown History of Pneumococcal: Unknown Pneumococcal Date: Sep 03, 2007 History of Hepatitis B Vaccine: Unknown Allergies Coded Allergies: Penicillins (Verified Allergy, Mild, RASH, 07/14/17) pt stated has had more recently with no reaction Home Medications Scheduled Aspirin (Aspirin Ec), 81 MG PO DAILY Biotin (Biotin), 1 MG PO DAILY Calcium Carbonate-Cholecalcife (Caltrate 600+D), 1 TAB PO DAILY Diazepam (Diazepam), 5 MG PO DAILY Fluoxetine Hcl (Pmdd) (Prozac), 1 CAP PO DAILY Gabapentin (Gabapentin), 1 CAP PO HS Lamotrigine (Lamictal), 0.5 TAB PO DAILY Levothyroxine Sodium (Levothyroxine Sodium), 88 MCG PO DAILY [place] Carbonate ([place] Carbonate), 150 MG PO BID Megestrol Acetate (Megestrol Acetate), 10 ML PO DAILY Scheduled PRN Acetaminophen (Tylenol), 650 MG PO Q4 PRN for Headache or Pain Review of Systems See HPI for pertinent positives & negatives. All other systems reviewed and were otherwise negative Physical Exam Vital Signs Date Time Temp Pulse Resp B/P (MAP) Pulse Ox O2 Delivery O2 Flow Rate FiO2 03/06/18 15:19 71 20 150/85 97 Room Air 03/06/18 14:19 90 21 132/64 100 Room Air 03/06/18 13:25 70 22 132/64 99 Room Air 03/06/18 12:03 78 03/06/18 12:00 100 03/06/18 11:55 37.0 78 24 164/85 99 Room Air General Appearance: + thin, + pertinent finding (Chronic ill-appearing, in no apparent distress. Disheveled) Head: normocephalic, atraumatic Eyes: normal inspection, PERRL, EOMI, sclerae normal ENT: hearing grossly normal, + pertinent finding (Dry mucous membranes.) Neck: supple, no JVD, trachea midline Respiratory/Chest: lungs clear, normal breath sounds, no respiratory distress, + pertinent finding (Port noted left upper chest) Cardiovascular: regular rate, rhythm, no murmur, normal peripheral pulses Abdomen/GI: normal bowel sounds, non tender, soft Extremities/Musculoskelatal: no calf tenderness, no pedal edema, non-tender, + pertinent finding (Pedal pushes and pulls intact.) Neurologic/Psych: alert, + pertinent finding (Oriented to person, knows month and year and now states today is Sunday. She is in the ER thinks it is [facility]. Patient cooperative. Somewhat of flat affect.) Skin: warm/dry, + pertinent finding (Positive scattered ecchymosis and abrasion to right arm. Patient hands and feet and face dirty. Long fingernails and toenails noted) Diagnostics Laboratory Results Results Past 24 Hours Test 03/06/18 12:28 03/06/18 12:39 03/06/18 14:51 Range/Units White Blood Count 8.11 4.8-10.8 K/uL Red Blood Count 3.71 4.2-5.4 M/uL Hemoglobin 12.3 12.0-16.0 g/dL Hematocrit 38.8 37-47 % Mean Corpuscular Volume 104.6 80-100 fL Mean Corpuscular Hemoglobin 33.2 25-34 pg Mean Corpuscular Hemoglobin Concent 31.7 32-36 g/dl Platelet Count 283 130-400 K/uL Mean Platelet Volume 9.5 7.4-10.4 fL Neutrophils (%) (Auto) 77.3 % Lymphocytes (%) (Auto) 15.9 % Monocytes (%) (Auto) 4.9 % Eosinophils (%) (Auto) 1.4 % Basophils (%) (Auto) 0.4 % Neutrophils # (Auto) 6.27 1.4-6.5 K/uL Lymphocytes # (Auto) 1.29 1.2-3.4 K/uL Monocytes # (Auto) 0.40 0.11-0.59 K/uL Eosinophils # (Auto) 0.11 0-0.5 K/uL Basophils # (Auto) 0.03 0-0.2 K/uL RDW Standard Deviation 51.4 36.4-46.3 fL RDW Coefficient of Variation 13.5 11.5-14.5 % Immature Granulocyte % (Auto) 0.1 % Immature Granulocyte # (Auto) 0.01 0.00-0.02 K/uL Prothrombin Time 9.9 9.0-12.0 SECONDS Prothromb Time International Ratio 0.9 0.9-1.1 Activated Partial Thromboplast Time 23.6 21.0-31.0 SECONDS Partial Thromboplastin Ratio 0.9 Sodium Level 141 136-145 mmol/L Potassium Level 4.2 3.5-5.1 mmol/L Chloride Level 112 98-107 mmol/L Carbon Dioxide Level 25 21-32 mmol/L Anion Gap 4.0 3-11 mmol/L Blood Urea Nitrogen 33 7-18 mg/dl Creatinine 1.58 0.60-1.20 mg/dl Est Creatinine Clear Calc Drug Dose 21.9 ml/min Estimated GFR () 35.9 Estimated GFR (Non- 31.0 BUN/Creatinine Ratio 21.0 10-20 Random Glucose 98 70-99 mg/dl Calcium Level 11.0 8.5-10.1 mg/dl Magnesium Level 2.2 1.8-2.4 mg/dl Total Bilirubin 0.4 0.2-1 mg/dl Direct Bilirubin < 0.1 0-0.2 mg/dl Aspartate Amino Transf (AST/SGOT) 25 15-37 U/L Alanine Aminotransferase (ALT/SGPT) 28 12-78 U/L Alkaline Phosphatase 95 45-117 U/L Troponin I < 0.015 0-0.045 ng/ml Total Protein 8.2 6.4-8.2 gm/dl Albumin 4.3 3.4-5.0 gm/dl Thyroid Stimulating Hormone (TSH) 22.000 0.300-4.500 uIu/ml Chemistry Specimen Hemolysis [place] Level 1.3 0.6-1.2 mMOL/L Urine Color YELLOW Urine Appearance CLEAR CLEAR Urine pH 6.0 4.5-7.5 Urine Specific [place] 1.015 1.000-1.030 Urine Protein NEG NEG Urine Glucose (UA) NEG NEG Urine Ketones NEG NEG Urine Occult Blood TRACE NEG Urine Nitrite NEG NEG Urine Bilirubin NEG NEG Urine Urobilinogen NEG NEG Urine Leukocyte Esterase NEG NEG Urine RBC 0-4 0-4 /hpf Urine WBC 1-5 0-5 /hpf Urine Epithelial Cells 5-10 0-5 /lpf Urine Bacteria NEG NEG Microbiology Results 03/06/18 Urine Culture, Received Pending Diagnostic Radiology CXR: IMPRESSION: Ill-defined 2.4 cm round opacity of the right perihilar lung is indeterminate. This could be further evaluated with a follow-up chest CT. Head CT: IMPRESSION: 1. Chronic small vessel ischemic change. No acute intracranial abnormality. EKG EKG: NSR, rate 75, no significant changes noted from comparison EKG and 06/2017. Impression Assessment and Plan ALTERED MENTAL STATUS Patient with increasing confusion, worsening past couple of weeks per granddaughter. Was brought to ER today via EMS when she was at dentist office thinking she was at the psychiatrist's office. In ER vitals stable. No focal deficits. no leukocytosis, negative troponin, lithium: 1.3 (range 0.6-1.2), Ca: 11, Cl:112, UA negative, CT head: No acute changes. Patient was given 1 L NSS in ER. No clear infectious etiology. Possible electrolyte abnormality, worsening dementia, or psychiatric issues causes -Pending urine tox -Continue to monitor -CBC, PRP in am DEHYDRATION Patient with poor oral intake. Appears dry. BUN/CR ratio 21. Patient given 1 L NSS in ER -IVF CHRONIC GAIT DISTURBANCE/CHRONIC DIZZINESS AND RECURRENT FALLS Patient with history of gait disturbance, dizziness and history of falls for the past year. Has followed up with Dr. Redd neurology in the past. EM-normal, only slight polyneuropathy. Patient unable to have MRI, head head CT in 09/2017 no acute changes, chronic small vessel changes. CT head in ER today no acute changes. -PT/OT eval MALNUTRITION Patient with decreased appetite and poor oral intake with weight loss for greater than a year. BMI: 16.8 -Dietitian consult -Boost -Continue Megace POSSIBLE RIGHT LUNG MASS CXR:IMPRESSION: Ill-defined 2.4 cm round opacity of the right perihilar lung is indeterminate. This could be further evaluated with a follow-up chest CT. -CT chest ordered HYPOTHYROIDISM TSH and free T4 added -Continue levothyroxine BIPOLAR DISORDER Denies recent manic symptoms, suicidal ideations. Patient reports follows with psychiatrist monthly. [place] level: 1.3 (range 0.6-1.2) -Hold lithium, valium -Continue Prozac, Lamictal -Monitor CKD III Cr:1.58, baseline 1.2-1.4 -Monitor renal function -Avoid nephrotoxic agents when possible HISTORY KIDNEY CA S/P LEFT NEPHRECTOMY/HISTORY OF BLADDER CA Follows with an intensity urology, last seen 09/11 had cystourethroscopy at that time TOBACCO USE -Smoking cessation discussed DVT Prophylaxis -Heparin SQ Disposition admit tele DNR/DNI as per discussion with pt and family Case management consult Follows with Dr Blake for routine care Pt was seen with Dr Choi. See addendum ATTENDING ADDENDUM: The patient was seen and examined on the floor in presence of granddaughter. She was admitted with frequent falls and also change in mental status. She complains to have ongoing dizziness for a while and denies any other symptoms. ON examination. Appeared very dry with dry mouth and mucous membrane. No apparent distress at rest, Hemodynamically stable, Chest-clear to auscultate bilaterally, Heart-S1-S2, regular Abdomen-soft nontender, no organomegaly Extremities-no edema [employer] SECURITY ADMINISTRATOR-pleasantly confused, generally weak, no focal neuro deficit observed. Pertinent labs and imaging studies: Calcium 11, lithium level 1.3 minimally high , and abnormal chest x-ray, Change in mental status seems to be multifactorial, We will hold lithium, give IV and increased oral intake of fluid. Agree with assessment and plan as mentioned above. Dr. Annetta Choi. Resuscitation Status DNR/DNI VTE Prophylaxis Will order VTE Prophylaxis: Yes Additional Copies To Aries Blake D.O.
[2018-03-06] MEDS: BOOST VANILLA PO SCH (17:02)
[2018-03-06] MEDS: SODIUM CHLORIDE 0.9% 1000ML 1,000 ML IV SCH (17:02)
[2018-03-06] MEDS: ACETAMINOPHEN 325 MG TAB PO PRN ×2 (17:06→20:47)
[2018-03-06 20:00] VITALS: O2SAT 100
--- NOTE | 2018-03-06 20:44 | DIAGNOSTIC IMAGING REPORT ---
CT OF THE CHEST WITHOUT IV CONTRAST CLINICAL HISTORY: Right lung opacity noted on cxr COMPARISON STUDY: Chest radiograph March 06, [address] February 01, 2015 and PET/CT February 19, 2016. CT DOSE: 169.52 mGycm TECHNIQUE: Axial images of the chest were obtained without IV contrast. Images were reviewed in the axial, sagittal, and coronal planes. IV contrast was not administered for this examination. A dose lowering technique was utilized adhering to the principles of ALARA. FINDINGS: No enlarged axillary, mediastinal or hilar lymph nodes are present. The size the heart is normal. There is no pericardial effusion. A left subclavian Tagwbr-i-Cgdn is in place. Central airways are patent. There is moderate coronary artery calcification. There is no consolidation to suggest pneumonia. Mild groundglass opacities reflect atelectasis. No suspicious pulmonary lesions are identified. The possible abnormality prior chest radiograph reflected summation artifact or atelectasis. There are several right-sided rib fractures which are likely old. There are no suspicious osseous lesions. IMPRESSION: 1. No suspicious pulmonary nodules. The possible abnormality on prior chest radiograph either reflected summation artifact or atelectasis. 2. No acute intrathoracic findings. Electronically signed by: Lamont Alcazar M.D. 03/06/2018 8:43 PM Dictated Date/Time: 03/06/2018 8:35 PM
[2018-03-06] MEDS: HEPARIN SOD 5000 UNIT/0.5 ML CARP SQ SCH (20:46)
[2018-03-06] MEDS ORDERED: LITHIUM CARBONATE 300 MG TAB PO SCH (21:00)
[2018-03-06 21:10] VITALS: BP 139/77; PULSE 68; TEMP 36.3; O2SAT 98
[2018-03-07] VITALS (9 sets, daily range): BP systolic 113–144; BP diastolic 66–77; PULSE 54–69; TEMP 36.1–36.9; O2SAT 95–99
[2018-03-07] MEDS ORDERED: TRAMADOL HCL 50 MG TAB PO STA (00:12)
[2018-03-07 06:24] LABS: HEMATOCRIT 38.9 % (37-47); HEMOGLOBIN 12.4 g/dL (12.0-16.0); MEAN CELL VOLUME 104.3 fL (80-100); MEAN CORPUSCULAR HEMOGLOBIN 33.2 pg (25-34); MEAN CORPUSCULAR HGB CONC 31.9 g/dl (32-36); MEAN PLATELET VOLUME 9.8 fL (7.4-10.4); PLATELET COUNT 274 K/uL (130-400); RED CELL DISTRIBUTION WIDTH CV 13.3 % (11.5-14.5); RED CELL DISTRIBUTION WIDTH SD 50.5 fL (36.4-46.3); WHITE BLOOD COUNT 6.43 K/uL (4.8-10.8)
[2018-03-07] MEDS: SODIUM CHLORIDE 0.9% 1000ML 1,000 ML IV SCH ×2 (06:25→19:17)
[2018-03-07] MEDS: LEVOTHYROXINE 88 MCG TAB PO SCH (06:25)
[2018-03-07 06:55] LABS: CALCIUM 9.9 mg/dl (8.5-10.1); CREATININE 1.58 mg/dl (0.60-1.20); POTASSIUM 4.3 mmol/L (3.5-5.1)
[2018-03-07] MEDS: MEGESTROL ACETATE SUSP 400 MG/10 ML UDC PO SCH (08:03)
[2018-03-07] MEDS: FLUOXETINE HCL 10 MG CAP PO SCH (08:04)
[2018-03-07] MEDS: ASPIRIN 81 MG ECTAB PO SCH (08:04)
[2018-03-07] MEDS: BOOST VANILLA PO SCH (08:12)
[2018-03-07] MEDS ORDERED: DIAZEPAM 5MG TAB PO SCH (09:00)
[2018-03-07] MEDS: HEPARIN SOD 5000 UNIT/0.5 ML CARP SQ SCH ×2 (09:16→20:43)
[2018-03-07] MEDS: ACETAMINOPHEN 325 MG TAB PO PRN (19:14)
[2018-03-07] MEDS ORDERED: NICOTINE 14 MG/24 HR TDSY TD ONE (19:58)
--- NOTE | 2018-03-07 20:11 | Progress Note ---
Medicine Progress Note Date & Time of Visit: Mar 07, 2018 at 15:10 . Subjective Weak, confused. No fever. No cough or SOB. No chest pain. Anorexic; no nausea, vomiting. No diarrhea. No urinary symptoms. . Objective Last 8 Hrs Date Time Temp Pulse Resp B/P (MAP) Pulse Ox O2 Delivery O2 Flow Rate FiO2 03/07/18 19:54 36.8 69 16 118/76 (90) 97 Room Air 03/07/18 16:03 36.1 68 18 113/66 (82) 95 Room Air 03/07/18 16:00 Room Air Physical Exam: General- appears to be chronically-ill; no acute distress Lungs- clear to auscultation; no respiratory distress Cardiovascular- RRR; no murmur or gallop appreciated; no JVD; no pretibial edema Abdomen- + bowel sounds, soft, nontender Extremities- no cyanosis; no calf tenderness Neuro- alert, moderate confusion, dysarthric Skin- warm & dry . Laboratory Results: Last 24 Hours Test 03/07/18 05:55 White Blood Count 6.43 K/uL Red Blood Count 3.73 M/uL Hemoglobin 12.4 g/dL Hematocrit 38.9 % Mean Corpuscular Volume 104.3 fL Mean Corpuscular Hemoglobin 33.2 pg Mean Corpuscular Hemoglobin Concent 31.9 g/dl RDW Standard Deviation 50.5 fL RDW Coefficient of Variation 13.3 % Platelet Count 274 K/uL Mean Platelet Volume 9.8 fL Sodium Level 143 mmol/L Potassium Level 4.3 mmol/L Chloride Level 113 mmol/L Carbon Dioxide Level 23 mmol/L Anion Gap 6.0 mmol/L Blood Urea Nitrogen 28 mg/dl Creatinine 1.58 mg/dl Est Creatinine Clear Calc Drug Dose 19.5 ml/min Estimated GFR () 35.9 Estimated GFR (Non- 31.0 BUN/Creatinine Ratio 17.8 Random Glucose 91 mg/dl Calcium Level 9.9 mg/dl [place] Level 1.0 mMOL/L Assessment & Plan ALTERED MENTAL STATUS History obtained from family indicates progressive confusion over some time. They are concerned that she is not getting adequate nutrition or hydration. They are also concerned that she is not taking her medications as instructed. Underlying bipolar disorder. Son uncertain about alcohol intake. Altered mental status could be metabolic encephalopathy or due to other factors. Head CT negative for acute event or apparent malignancy. TSH elevated- probably not taking levothyroxine properly. Macrocytosis- check B 12 and folate. Management of bipolar illness as discussed below. CKD IV Serum creatinine = 1.58. Avoid potential nephrotoxins. Follow. HYPOTHYROIDISM TSH = 22. Patient indicates that she is not taking levothyroxine on regular basis. Continue prescribed dose of 88 mcg daily. Follow TSH. BIPOLAR ILLNESS [place] level 1.3 at time of admission. Prescribed diazepam 5 mg daily; unclear whether or not she is taking it as directed. Probably best to continue diazepam at this time to avoid withdrawal, but consider tapering if possible. Son indicates that patient has required inpatient psychiatric care in the past. Consult Psychiatry. WEIGHT LOSS May be multifactorial. Consult Nutrition. Rule out malignancy. Follow. ? PULMONARY MASS Ill-defined 2.4 cm density right lung noted on chest x-ray, but not confirmed by CT chest. VTE PROPHYLAXIS SQ heparin. Ambulate. DISPOSITION To be determined. Anticipate need for skilled care or rehab. Internal Medicine follow-up with Dr. Blake. . Current Inpatient Medications: Current Inpatient Medications Medications (Trade) Dose Ordered Sig/Kim Route Start Time Stop Time Status Last Admin Dose Admin Heparin Sodium (Porcine) (Heparin Sq 5000 Unit/0.5ml) 5,000 unit Q12 SQ 03/06/18 21:00 04/05/18 20:59 03/07/18 09:16 5,000 UNIT Acetaminophen (Tylenol Tab) 650 mg Q4H PRN PO 03/06/18 15:00 04/05/18 14:59 03/07/18 19:14 650 MG Al Hydrox/Mg Hydrox/Simethicone (Maalox Max Susp) 15 ml Q4H PRN PO 03/06/18 15:00 04/05/18 14:59 Magnesium Hydroxide (Milk Of Magnesia Susp) 30 ml Q12H PRN PO 03/06/18 15:00 04/05/18 14:59 Ondansetron HCl (Zofran Inj) 4 mg Q6H PRN IV 03/06/18 15:00 04/05/18 14:59 Enteral Nutritional Formula (Boost) 1 can DAILY PO 03/06/18 16:00 04/05/18 15:59 03/07/18 08:12 1 CAN Aspirin (Ecotrin Tab) 81 mg DAILY PO 03/07/18 09:00 04/06/18 08:59 03/07/18 08:04 81 MG Fluoxetine HCl (Prozac Cap) 10 mg DAILY PO 03/07/18 09:00 04/06/18 08:59 03/07/18 08:04 10 MG Lamotrigine (Lamictal Tab) 50 mg DAILY PO 03/07/18 09:00 04/06/18 08:59 03/07/18 08:04 50 MG Levothyroxine Sodium (Synthroid Tab) 88 mcg DAILYBB PO 03/07/18 06:30 04/06/18 06:59 03/07/18 06:25 88 MCG Megestrol Acetate (Megace Susp) 400 mg DAILY PO 03/07/18 09:00 04/06/18 08:59 03/07/18 08:03 400 MG Sodium Chloride 1,000 ml @ 75 mls/hr [id number] IV 03/06/18 16:45 03/08/18 08:44 03/07/18 19:17 75 MLS/HR Nicotine (Nicoderm Cq 14MG Patch) 1 patch QAM TD 03/08/18 09:00 04/07/18 08:59 Miscellaneous (Remove Nicoderm Patch) 1 ea HS N/A 03/07/18 21:00 04/06/18 20:59
[2018-03-08] MEDS: ACETAMINOPHEN 325 MG TAB PO PRN ×2 (00:09→10:17)
[2018-03-08 04:30] VITALS: BP 152/80; PULSE 66; TEMP 36.7; O2SAT 97
[2018-03-08] MEDS: LEVOTHYROXINE 88 MCG TAB PO SCH (06:28)
[2018-03-08 07:54] LABS: CALCIUM 9.1 mg/dl (8.5-10.1); CREATININE 1.48 mg/dl (0.60-1.20); POTASSIUM 4.3 mmol/L (3.5-5.1)
[2018-03-08 08:18] VITALS: BP 143/75; PULSE 66; TEMP 36.7; O2SAT 95
[2018-03-08] MEDS: BOOST VANILLA PO SCH (08:46)
[2018-03-08] MEDS: MEGESTROL ACETATE SUSP 400 MG/10 ML UDC PO SCH (08:48)
[2018-03-08] MEDS: ASPIRIN 81 MG ECTAB PO SCH (08:48)
[2018-03-08] MEDS: NICOTINE 14 MG/24 HR TDSY TD SCH (08:48)
[2018-03-08] MEDS: FLUOXETINE HCL 10 MG CAP PO SCH (08:48)
[2018-03-08] MEDS: HEPARIN SOD 5000 UNIT/0.5 ML CARP SQ SCH ×2 (08:53→21:47)
[2018-03-08 11:15] VITALS: BP 116/76; PULSE 67; TEMP 36.8; O2SAT 97
--- NOTE | 2018-03-08 14:03 | Psychiatric Consultation ---
Consultation Date of Consultation Mar 08, 2018. Identifying Data Ayse Hou is a 77-year-old female with a history of bipolar I disorder diagnosis. Pt admitted to the medical floor due to increasing confusion over the past few months and acute AMS. Pt is reported to be declining in her ability to function independently, with concerns of limited nutritional intake and performance of ADLs. Psychiatric consult ordered due to bipolar history with medications and current AMS. Information provided by patient is not particularly reliable. Chief Complaint "I'm feeling better today - not as jumpy". History of Present Illness Ayse Hou is a 77-year-old female currently living alone in [place], [place]. Pt was brought to the ED by EMS who reported the patient was "at a dentist' s office for an appointment with her psychiatrist, acting confused and agitated. " Pt has been demonstrating AMS and was admitted due to increased confusion over the past several months. Pt was seen on psychiatric consult service to assess AMS and make recommendations for patient's current medications for history of bipolar disorder. Pt is unable to recall events leading up to her admission stating, "I was nervous - terribly nervous". Pt states she was at home prior to coming to the hospital, but is unable to provide specific details. Pt states her mood has been good and she feels she has been able to keep up with her daily tasks. Pt reports she sees Dr. Brody monthly, but is a poor historian with regard to her medications. Pt states she takes her medications appropriately, "I keep them all together, I take them right." Pt states she lives alone and is able to care for herself appropriately. She states she cooks "simple things like chili or spaghetti" twice a week and eats "two meals a day, but I still get hungry". She denies any concerns about performing her ADLS, but presents poorly groomed with poor dentition and appears unkempt. Pt is unable to provide appropriate history, but denies concerns today. Limited HPI due to patient's altered mental status. Psychiatric nurse liaison has been in contact with son and granddaughter, but no supports present at time of assessment to provide collateral information. Past Psychiatric History Current OP Treatment: psychiatrist (Dr. Brody ) Prior Psych Hospitalizations: [facility] Past Medication Trials Per patient report - - Sinequan - Zyprexa Past Medical/Surgical History (1) Hypothyroidism (2) CKD (chronic kidney disease), stage IV (3) Bladder cancer (4) Chronic obstructive lung disease Allergies Allergies: Coded Allergies: Penicillins (Verified Allergy, Mild, RASH, 07/14/17) pt stated has had more recently with no reaction Home Medications Scheduled Aspirin (Aspirin Ec), 81 MG PO DAILY Biotin (Biotin), 1 MG PO DAILY Calcium Carbonate-Cholecalcife (Caltrate 600+D), 1 TAB PO DAILY Diazepam (Diazepam), 5 MG PO DAILY Fluoxetine Hcl (Pmdd) (Prozac), 1 CAP PO DAILY Gabapentin (Gabapentin), 1 CAP PO HS Lamotrigine (Lamictal), 0.5 TAB PO DAILY Levothyroxine Sodium (Levothyroxine Sodium), 88 MCG PO DAILY [place] Carbonate ([place] Carbonate), 150 MG PO BID Megestrol Acetate (Megestrol Acetate), 10 ML PO DAILY Scheduled PRN Acetaminophen (Tylenol), 650 MG PO Q4 PRN for Headache or Pain Family History Diabetes mellitus FH: cancer FATHER (prostate CA) MOTHER (bone CA) Hypertension unable to adequate assess patient's family history due to current mental state. 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 Examination Vital Signs Vital Signs Past 12 Hours Date Time Temp Pulse Resp B/P (MAP) Pulse Ox O2 Delivery O2 Flow Rate FiO2 03/08/18 11:15 36.8 67 20 116/76 (89) 97 03/08/18 08:18 36.7 66 16 143/75 (97) 95 Room Air 03/08/18 08:00 Room Air 03/08/18 04:30 36.7 66 18 152/80 (104) 97 Room Air 03/08/18 04:00 Room Air Laboratory Results Last 24 Hours Test 03/08/18 07:05 03/08/18 07:06 Sodium Level 144 mmol/L Potassium Level 4.3 mmol/L Chloride Level 118 mmol/L Carbon Dioxide Level 22 mmol/L Anion Gap 4.0 mmol/L Blood Urea Nitrogen 26 mg/dl Creatinine 1.48 mg/dl Est Creatinine Clear Calc Drug Dose 20.8 ml/min Estimated GFR () 38.9 Estimated GFR (Non- 33.6 BUN/Creatinine Ratio 17.2 Random Glucose 95 mg/dl Calcium Level 9.1 mg/dl Ammonia 10.6 umol/L Vitamin B12 Level 428 pg/mL 25-Hydroxy Vitamin D Total 38.8 ng/ml Folate 16.49 ng/mL Mental Examination During interview pt is: cooperative Appearance: appropriately dressed, disheveled, other (poorly groomed, poor dentition) Eye contact is: poor Speech: other (slow, soft speech) Affect: blunted Mood is: other ("fine") Thought process: goal directed, concrete Thought content: cognitive distortions (as to ability to function independently ) Suicidal thought are: denied Homicidal thoughts are: denied Intelligence estimated to be: consistent with level of education Insight: poor Judgement: poor Difficulty assessing mental status due to patient's current state. Pt decently organized, but not reliable in providing accurate information. Impression / Recommendations Impression 77-year-old female admitted with AMS and confusion. PMH of bipolar disorder, medical records from outpatient psychiatrist show current regimen of: Lamictal 25mg qHS, lithium carbonate 150mg BID, seroquel 25mg qHS, and Valium 2.5mg BID. Pt is not currently receiving seroquel and is on Prozac 10mg. Will plan to communicate with Dr. Brody regarding recent medication changes to ensure accuracy of current medication regimen. Pt unable to provide reliable history regarding medication regimen, her personal administration of medications, or any recent changes. Valium and lithium held per medical team. Discussed with patient discontinuation of lithium due to renal disease and s/p left nephrectomy. Pt agreeable to this at this time. [place] level elevated at admission (1.3) and most recently in range at 1.0. Would recommend another level be drawn on 03/09 in case patient should require restart of low-dose lithium for mood stability. As patient presented with AMS and confusion, would also recommend discontinuation of Valium and will plan to taper over the next two days. Will order Valium 2.5mg qHS for the next two night, holding for sedation or confusion. Pt states she gets "dizzy" with Valium dosing and is agreeable to taper with eventual planned discontinuation. Will continue to monitor for changes in mental status and will provide additional recommendations as necessary. Due to lack of mood instability, denial of SI/HI, and no indication for A/V hallucinations or other psychotic process, patient does not meet criteria for inpatient mental carmenza treatment at this time. Least restrictive setting for treatment would be inpatient medical hospitalization until mental status improves. Risk Factors Assessment : Yes /single/: Yes Health problems: Yes Mental Health Diagnoses: Yes Substance use disorders: No Previous psychiatric stay: Yes Smoker: Yes Recommendations (1) Bipolar disorder 03/08 - Due to current AMS, history of significant renal disease, and elevated [place] levels upon admission, would recommend discontinuation of lithium until mental status clears - [place] levels: 03/06 - 1.3 and 03/07 - 1.0 - Would recommend repeat lithium level 03/09 in case low-dose lithium should need to be restarted for mood control. - Once mental status improves, could consider restart of low-dose lithium if necessary for mood stability - Attempting to gain addition information from Dr. Brody in regard to medication recommendations or recent changes. (2) Altered mental status 03/08 - Collateral provided by son and granddaughter indicate that patient was "2 weeks too early to refill her medications". Some concern that patient is not able to take medications appropriately while at home. - Continue to monitor lithium levels - Taper Valium: 2.5mg qHS x 2 days; then discontinue. - Continue to monitor for change in behavior while receiving medication in the inpatient setting - Will likely require more outpatient supports in order to improve functioning at home and appropriate administration of medications Dr. Mcclellan has personally been involved in the review of the above case and development of recommendations.
[2018-03-08 14:21] VITALS: BP 127/72; PULSE 68; TEMP 36.3; O2SAT 96
[2018-03-08 16:09] VITALS: BP 144/77; PULSE 69; TEMP 36.9; O2SAT 98
[2018-03-08] MEDS: GENTAMICIN SULFATE 0.3% OP SOLN 5 ML BTL OPL SCH ×2 (16:37→21:34)
--- NOTE | 2018-03-08 20:53 | Progress Note ---
Medicine Progress Note Date & Time of Visit: Mar 08, 2018 at ~11:00 . Subjective No fever. No chest pain. No cough or shortness of breath. Marginal oral intake. No nausea, vomiting, abdominal pain. Would like to go home. . Objective Last 8 Hrs Date Time Temp Pulse Resp B/P (MAP) Pulse Ox O2 Delivery O2 Flow Rate FiO2 03/08/18 16:09 36.9 69 18 144/77 (99) 98 Room Air 03/08/18 16:00 Room Air 03/08/18 14:21 36.3 68 20 127/72 (90) 96 Physical Exam: General- appears to be chronically-ill; no acute distress Eyes- purulent discharge left eye Lungs- clear to auscultation; no respiratory distress Cardiovascular- RRR; no murmur or gallop appreciated; no JVD; no pretibial edema Abdomen- + bowel sounds, soft, nontender Extremities- no cyanosis; no calf tenderness Neuro- alert, moderate confusion, dysarthric Skin- warm & dry . Laboratory Results: Last 24 Hours Test 03/08/18 07:05 03/08/18 07:06 Sodium Level 144 mmol/L Potassium Level 4.3 mmol/L Chloride Level 118 mmol/L Carbon Dioxide Level 22 mmol/L Anion Gap 4.0 mmol/L Blood Urea Nitrogen 26 mg/dl Creatinine 1.48 mg/dl Est Creatinine Clear Calc Drug Dose 20.8 ml/min Estimated GFR () 38.9 Estimated GFR (Non- 33.6 BUN/Creatinine Ratio 17.2 Random Glucose 95 mg/dl Calcium Level 9.1 mg/dl Ammonia 10.6 umol/L Vitamin B12 Level 428 pg/mL 25-Hydroxy Vitamin D Total 38.8 ng/ml Folate 16.49 ng/mL Assessment & Plan ALTERED MENTAL STATUS History obtained from family indicates progressive confusion over some time. They are concerned that she is not getting adequate nutrition or hydration. They are also concerned that she is not taking her medications as instructed. Underlying bipolar disorder. Son uncertain about alcohol intake. Altered mental status could be metabolic encephalopathy or due to other factors. Head CT negative for acute event or apparent malignancy. TSH elevated- probably not taking levothyroxine properly. Macrocytosis- B 12 and folate normal. Management of bipolar illness as discussed below. CKD IV Serum creatinine at time of admission was 1.58. Receiving IV fluids. Creatinine today = 1.48. Avoid potential nephrotoxins. Follow. HYPOTHYROIDISM TSH = 22. Patient indicates that she is not taking levothyroxine on regular basis. Continue prescribed dose of 88 mcg daily. Follow TSH. BIPOLAR ILLNESS [place] level 1.3 at time of admission. Prescribed diazepam 5 mg daily; unclear whether or not she is taking it as directed. Probably best to continue diazepam at this time to avoid withdrawal, but consider tapering if possible. Son indicates that patient has required inpatient psychiatric care in the past. Psychiatry consult. WEIGHT LOSS May be multifactorial. Nutrition consulted Rule out malignancy. Follow. ? PULMONARY MASS Ill-defined 2.4 cm density right lung noted on chest x-ray, but not confirmed by CT chest. VTE PROPHYLAXIS SQ heparin. Ambulate. DISPOSITION To be determined. Anticipate need for skilled care or rehab. Internal Medicine follow-up with Dr. Blake. . Current Inpatient Medications: Current Inpatient Medications Medications (Trade) Dose Ordered Sig/Kim Route Start Time Stop Time Status Last Admin Dose Admin Heparin Sodium (Porcine) (Heparin Sq 5000 Unit/0.5ml) 5,000 unit Q12 SQ 03/06/18 21:00 04/05/18 20:59 03/08/18 08:53 5,000 UNIT Acetaminophen (Tylenol Tab) 650 mg Q4H PRN PO 03/06/18 15:00 04/05/18 14:59 03/08/18 10:17 650 MG Al Hydrox/Mg Hydrox/Simethicone (Maalox Max Susp) 15 ml Q4H PRN PO 03/06/18 15:00 04/05/18 14:59 Magnesium Hydroxide (Milk Of Magnesia Susp) 30 ml Q12H PRN PO 03/06/18 15:00 04/05/18 14:59 Ondansetron HCl (Zofran Inj) 4 mg Q6H PRN IV 03/06/18 15:00 04/05/18 14:59 Enteral Nutritional Formula (Boost) 1 can DAILY PO 03/06/18 16:00 04/05/18 15:59 03/08/18 08:46 1 CAN Aspirin (Ecotrin Tab) 81 mg DAILY PO 03/07/18 09:00 04/06/18 08:59 03/08/18 08:48 81 MG Fluoxetine HCl (Prozac Cap) 10 mg DAILY PO 03/07/18 09:00 04/06/18 08:59 03/08/18 08:48 10 MG Lamotrigine (Lamictal Tab) 50 mg DAILY PO 03/07/18 09:00 04/06/18 08:59 03/08/18 08:48 50 MG Levothyroxine Sodium (Synthroid Tab) 88 mcg DAILYBB PO 03/07/18 06:30 04/06/18 06:59 03/08/18 06:28 88 MCG Megestrol Acetate (Megace Susp) 400 mg DAILY PO 03/07/18 09:00 04/06/18 08:59 03/08/18 08:48 400 MG Nicotine (Nicoderm Cq 14MG Patch) 1 patch QAM TD 03/08/18 09:00 04/07/18 08:59 03/08/18 08:48 1 PATCH Miscellaneous (Remove Nicoderm Patch) 1 ea HS N/A 03/07/18 21:00 04/06/18 20:59 03/07/18 21:00 1 EA Gentamicin Sulfate (Gentamicin 0.3% Oph Soln) 2 drops QID OPL 03/08/18 17:00 03/18/18 16:59 03/08/18 16:37 2 DROPS Diazepam (Valium Tab) 2.5 mg HS PO 03/08/18 21:00 03/10/18 20:59
[2018-03-08] MEDS: DIAZEPAM 2MG TAB PO SCH (21:34)
[2018-03-08 23:15] VITALS: BP 132/79; PULSE 71; TEMP 36.6; O2SAT 98
[2018-03-09] MEDS: ACETAMINOPHEN 325 MG TAB PO PRN ×3 (00:12→21:29)
[2018-03-09] MEDS ORDERED: TRAMADOL HCL 50 MG TAB PO STA (01:59)
[2018-03-09 05:02] VITALS: BP 111/68; PULSE 61; TEMP 36.8; O2SAT 98
[2018-03-09 06:52] LABS: CREATININE 1.46 mg/dl (0.60-1.20); POTASSIUM 4.6 mmol/L (3.5-5.1)
[2018-03-09] MEDS: LEVOTHYROXINE 88 MCG TAB PO SCH (07:01)
[2018-03-09] MEDS ORDERED: SODIUM CHLORIDE 0.9% 1000ML 1,000 ML IV SCH (07:15)
[2018-03-09] MEDS: GENTAMICIN SULFATE 0.3% OP SOLN 5 ML BTL OPL SCH ×4 (08:46→21:19)
[2018-03-09] MEDS: ASPIRIN 81 MG ECTAB PO SCH (08:46)
[2018-03-09] MEDS: FLUOXETINE HCL 10 MG CAP PO SCH (08:47)
[2018-03-09] MEDS: NICOTINE 14 MG/24 HR TDSY TD SCH (08:47)
[2018-03-09] MEDS: MEGESTROL ACETATE SUSP 400 MG/10 ML UDC PO SCH (08:47)
[2018-03-09] MEDS: HEPARIN SOD 5000 UNIT/0.5 ML CARP SQ SCH ×2 (08:49→21:25)
[2018-03-09] MEDS: BOOST VANILLA PO SCH (08:55)
--- NOTE | 2018-03-09 12:34 | Psychiatric Progress Notes ---
Progress Note Date of Service Mar 09, 2018. Interval History Ayse oHu is a 77-year-old female with a history of bipolar I disorder diagnosis. Pt admitted to the medical floor due to increasing confusion over the past few months and acute AMS. Pt is reported to be declining in her ability to function independently, with concerns of limited nutritional intake and performance of ADLs. Psychiatric consult ordered due to bipolar history with medications and current AMS. Information provided by patient is not particularly reliable. Chief Complaint "I'm feeling a little better". Subjective Patient was seen & assessed interval progress reviewed psychiatric nurse liaison. Pt seen today to assess progress since admission. Pt remains alert and oriented to self only, though improving in regard to orientation and level of confusion compared to last visit. Pt states she has been doing well, but does not feel her thoughts are more clear. She seems to be mildly improved when speaking with her, though based on other reports, this seems to vary throughout the day. Pt aware of plan for rehabilitation referrals and is understanding of the reasoning for this action. She states she is "fine with it ". We discussed what would be done at rehab and that it would be a chance for her to continue to get stronger. Pt denies any concerns with her medications and changes were reviewed with her today. She denies any concerns or needs today. Review of Systems Psych: denies symptoms other than stated above Constitutional: denied Cardiovascular: denied GI: denied Neurologic: denied Remainder of 10 body systems also reviewed and denied other than noted above. Mental Status Exam During interview pt is: cooperative, other (appears more alert, oriented to self only, however she answers with "February 2017" and "April in [place]") Appearance: appropriately dressed (in hospital gown, covered with blanket), disheveled, other (poorly groomed, poor dentition) Eye contact is: poor Motor behavior is: no abnormal motor movements (patient observed while sitting in bedside chair) Speech: other (slow, soft speech) Affect: blunted Mood is: other ("a little better") Thought process: goal directed, concrete Thought content: cognitive distortions (as to level of independence and need for assistance) Suicidal thought are: denied Homicidal thoughts are: denied Hallucinations: denies auditory, denies visual, other (unclear as to presence of hallucinations; however, does not appear to be responding to internal stimuli ) Intelligence estimated to be: consistent with level of education Insight: poor Judgement: poor Difficulty assessing mental status due to patient's current state. Pt decently organized, but not reliable in providing accurate information. Impression 77-year-old female admitted with AMS and confusion. PMH of bipolar disorder. [place] has been held and Valium dosing is being tapered to discontinuation. Pt is to received another 2.5mg dose of Valium this evening and will attempt discontinuation thereafter. Continuing to monitor for decreased confusion as well as any mood or behavioral disturbance with discontinuation of [place]. No reports of mood alterations or behavioral issues thus far. Outpatient medication changes remain unclear as I am questioning if there was a titration of Lamictal to initiate [place] or vice versa. Will continue with above plan at this time, monitor for mood stability, and attempt to gain records from pt's outpatient provider on Sunday when the office reopens. Plan (1) Bipolar disorder 03/08 - Due to current AMS, history of significant renal disease, and elevated [place] levels upon admission, would recommend discontinuation of lithium until mental status clears - [place] levels: 03/06 - 1.3 and 03/07 - 1.0 - Would recommend repeat lithium level 03/09 in case low-dose lithium should need to be restarted for mood control. - Once mental status improves, could consider restart of low-dose lithium if necessary for mood stability - Attempting to gain addition information from Dr. Brody in regard to medication recommendations or recent changes. 03/09 - Continue to hold lithium, continue Lamictal at 50mg daily. Based on external med history, I'm wondering if Lamictal was being tapered in favor of lithium on an outpatient basis; however, due to recent elevated levels and AMS, will continue to hold lithium for the time being - Li level 03/09 = 0.5 - Will attempt to acquire records from Dr. Brody when office reopens. (2) Altered mental status 03/08 - Collateral provided by son and granddaughter indicate that patient was "2 weeks too early to refill her medications". Some concern that patient is not able to take medications appropriately while at home. - Continue to monitor lithium levels - Taper Valium: 2.5mg qHS x 2 days; then discontinue. - Continue to monitor for change in behavior while receiving medication in the inpatient setting - Will likely require more outpatient supports in order to improve functioning at home and appropriate administration of medications Dr[facility] has personally been involved in the review of the above case and development of recommendations. Risk Factors Assessment : Yes /single/: Yes Health problems: Yes Mental Health Diagnoses: Yes Substance use disorders: No Previous psychiatric stay: Yes Smoker: Yes Data Vital Signs Last 24 Hrs: Date Time Temp Pulse Resp B/P (MAP) Pulse Ox O2 Delivery O2 Flow Rate FiO2 03/09/18 12:00 Room Air 03/09/18 07:20 Room Air 03/09/18 05:02 36.8 61 20 111/68 (82) 98 Room Air 03/09/18 04:00 Room Air 03/09/18 00:00 Room Air 03/08/18 23:15 36.6 71 20 132/79 (96) 98 Room Air 03/08/18 20:00 Room Air 03/08/18 16:09 36.9 69 18 144/77 (99) 98 Room Air 03/08/18 16:00 Room Air 03/08/18 14:21 36.3 68 20 127/72 (90) 96 Meds Administered Last 24 Hrs: Meds Administered (Past 24Hrs) Medications (Trade) Dose Ordered Sig/Kim Route Start Time Stop Time Status Last Admin Dose Admin Nicotine (Nicoderm Cq 14MG Patch) 1 patch QAM TD 03/08/18 09:00 04/07/18 08:59 03/09/18 08:47 1 PATCH Nicotine (Nicoderm Cq 14MG Patch) 1 patch NOW ONCE TD 03/07/18 19:58 03/07/18 19:59 DC 03/07/18 20:40 1 PATCH Miscellaneous (Remove Nicoderm Patch) 1 ea HS N/A 03/07/18 21:00 04/06/18 20:59 03/08/18 21:00 1 EA Gentamicin Sulfate (Gentamicin 0.3% Oph Soln) 2 drops QID OPL 03/08/18 17:00 03/18/18 16:59 03/09/18 08:46 2 DROPS Diazepam (Valium Tab) 2.5 mg HS PO 03/08/18 21:00 03/10/18 20:59 03/08/18 21:34 2.5 MG Tramadol HCl (Ultram Tab) 50 mg NOW STAT PO 03/09/18 01:59 03/09/18 02:05 DC 03/09/18 02:09 50 MG Sodium Chloride 1,000 ml @ 100 mls/hr Q10H IV 03/09/18 07:15 03/09/18 17:14 03/09/18 07:21 100 MLS/HR Lab Results Last 24 Hrs: Last 24 Hours Test 03/09/18 05:42 Sodium Level 141 mmol/L Potassium Level 4.6 mmol/L Chloride Level 114 mmol/L Carbon Dioxide Level 23 mmol/L Anion Gap 4.0 mmol/L Blood Urea Nitrogen 27 mg/dl Creatinine 1.46 mg/dl Est Creatinine Clear Calc Drug Dose 21.1 ml/min Estimated GFR () 39.5 Estimated GFR (Non- 34.1 BUN/Creatinine Ratio 18.4 Random Glucose 86 mg/dl Calcium Level 10.0 mg/dl [place] Level 0.5 mMOL/L Problem Qualifiers (1) Altered mental status: Altered mental status type: unspecified Qualified Codes: R41.82 - Altered mental status, unspecified
[2018-03-09 14:05] VITALS: BP 99/63; PULSE 58; TEMP 37.1; O2SAT 96
[2018-03-09 16:00] VITALS: O2SAT 96
--- NOTE | 2018-03-09 18:47 | Progress Note ---
Medicine Progress Note Date & Time of Visit: Mar 09, 2018 at 10:40 . Subjective No fever. No chest pain. No cough or shortness of breath. Appetite somewhat better. No nausea, vomiting, abdominal pain. Incontinent of urine. . Objective Last 8 Hrs Date Time Temp Pulse Resp B/P (MAP) Pulse Ox O2 Delivery O2 Flow Rate FiO2 03/09/18 14:05 37.1 58 20 99/63 (75) 96 03/09/18 12:00 Room Air Physical Exam: General- appears to be chronically-ill; no acute distress Eyes- purulent conjunctivitis left eye improved Lungs- clear to auscultation; no respiratory distress Cardiovascular- RRR; no murmur or gallop appreciated; no JVD; no pretibial edema Abdomen- + bowel sounds, soft, nontender Extremities- no cyanosis; no calf tenderness Neuro- alert, moderate confusion, dysarthric Skin- warm & dry . Laboratory Results: Last 24 Hours Test 03/09/18 05:42 Sodium Level 141 mmol/L Potassium Level 4.6 mmol/L Chloride Level 114 mmol/L Carbon Dioxide Level 23 mmol/L Anion Gap 4.0 mmol/L Blood Urea Nitrogen 27 mg/dl Creatinine 1.46 mg/dl Est Creatinine Clear Calc Drug Dose 21.1 ml/min Estimated GFR () 39.5 Estimated GFR (Non- 34.1 BUN/Creatinine Ratio 18.4 Random Glucose 86 mg/dl Calcium Level 10.0 mg/dl [place] Level 0.5 mMOL/L Assessment & Plan ALTERED MENTAL STATUS History obtained from family indicates progressive confusion over some time. They are concerned that she is not getting adequate nutrition or hydration. They are also concerned that she is not taking her medications as instructed. Underlying bipolar disorder. Son uncertain about alcohol intake. Altered mental status could be metabolic encephalopathy or due to other factors. Head CT negative for acute event or apparent malignancy. TSH elevated- probably not taking levothyroxine properly. Macrocytosis- B 12 and folate normal. UA negative. Management of bipolar illness as discussed below. CKD IV Serum creatinine at time of admission was 1.58. Receiving IV fluids. Creatinine today = 1.46. Avoid potential nephrotoxins. Follow. HYPOTHYROIDISM TSH = 22. Patient indicates that she is not taking levothyroxine on regular basis. Continue prescribed dose of 88 mcg daily. Follow TSH. BIPOLAR ILLNESS [place] level 1.3 at time of admission. Prescribed diazepam 5 mg daily; unclear whether or not she is taking it as directed. Probably best to continue diazepam at this time to avoid withdrawal, but consider tapering if possible. Son indicates that patient has required inpatient psychiatric care in the past. Psychiatry consulted. WEIGHT LOSS May be multifactorial. Nutrition consulted Rule out malignancy. Follow. ? PULMONARY MASS Ill-defined 2.4 cm density right lung noted on chest x-ray, but not confirmed by CT chest. VTE PROPHYLAXIS SQ heparin. Ambulate. DISPOSITION To be determined. Anticipate need for skilled care or rehab. Internal Medicine follow-up with Dr. Blake. . Current Inpatient Medications: Current Inpatient Medications Medications (Trade) Dose Ordered Sig/Kim Route Start Time Stop Time Status Last Admin Dose Admin Heparin Sodium (Porcine) (Heparin Sq 5000 Unit/0.5ml) 5,000 unit Q12 SQ 03/06/18 21:00 04/05/18 20:59 03/09/18 08:49 5,000 UNIT Acetaminophen (Tylenol Tab) 650 mg Q4H PRN PO 03/06/18 15:00 04/05/18 14:59 03/09/18 17:32 650 MG Al Hydrox/Mg Hydrox/Simethicone (Maalox Max Susp) 15 ml Q4H PRN PO 03/06/18 15:00 04/05/18 14:59 Magnesium Hydroxide (Milk Of Magnesia Susp) 30 ml Q12H PRN PO 03/06/18 15:00 04/05/18 14:59 Ondansetron HCl (Zofran Inj) 4 mg Q6H PRN IV 03/06/18 15:00 04/05/18 14:59 Enteral Nutritional Formula (Boost) 1 can DAILY PO 03/06/18 16:00 04/05/18 15:59 03/09/18 08:55 1 CAN Aspirin (Ecotrin Tab) 81 mg DAILY PO 03/07/18 09:00 04/06/18 08:59 03/09/18 08:46 81 MG Fluoxetine HCl (Prozac Cap) 10 mg DAILY PO 03/07/18 09:00 04/06/18 08:59 03/09/18 08:47 10 MG Lamotrigine (Lamictal Tab) 50 mg DAILY PO 03/07/18 09:00 04/06/18 08:59 03/09/18 08:47 50 MG Levothyroxine Sodium (Synthroid Tab) 88 mcg DAILYBB PO 03/07/18 06:30 04/06/18 06:59 03/09/18 07:01 88 MCG Megestrol Acetate (Megace Susp) 400 mg DAILY PO 03/07/18 09:00 04/06/18 08:59 03/09/18 08:47 400 MG Nicotine (Nicoderm Cq 14MG Patch) 1 patch QAM TD 03/08/18 09:00 04/07/18 08:59 03/09/18 08:47 1 PATCH Miscellaneous (Remove Nicoderm Patch) 1 ea HS N/A 03/07/18 21:00 04/06/18 20:59 03/08/18 21:00 1 EA Gentamicin Sulfate (Gentamicin 0.3% Oph Soln) 2 drops QID OPL 03/08/18 17:00 03/18/18 16:59 03/09/18 16:32 2 DROPS Diazepam (Valium Tab) 2.5 mg HS PO 03/08/18 21:00 03/10/18 20:59 03/08/18 21:34 2.5 MG
[2018-03-09 19:19] VITALS: BP 116/75; PULSE 67; TEMP 36.8; O2SAT 97
[2018-03-09 20:00] VITALS: O2SAT 96
[2018-03-09] MEDS: DIAZEPAM 2MG TAB PO SCH (21:17)
[2018-03-09 23:15] VITALS: BP 126/77; PULSE 61; TEMP 36.5; O2SAT 96
[2018-03-10] MEDS: LEVOTHYROXINE 88 MCG TAB PO SCH (06:30)
[2018-03-10 06:55] LABS: CALCIUM 9.5 mg/dl (8.5-10.1); CREATININE 1.35 mg/dl (0.60-1.20); POTASSIUM 4.9 mmol/L (3.5-5.1)
[2018-03-10 07:46] VITALS: BP 104/58; PULSE 79; TEMP 37.1; O2SAT 95
[2018-03-10 08:00] VITALS: O2SAT 95
[2018-03-10] MEDS: FLUOXETINE HCL 10 MG CAP PO SCH (08:03)
[2018-03-10] MEDS: MEGESTROL ACETATE SUSP 400 MG/10 ML UDC PO SCH (08:04)
[2018-03-10] MEDS: ASPIRIN 81 MG ECTAB PO SCH (08:05)
[2018-03-10] MEDS: GENTAMICIN SULFATE 0.3% OP SOLN 5 ML BTL OPL SCH ×4 (08:06→20:49)
[2018-03-10] MEDS: HEPARIN SOD 5000 UNIT/0.5 ML CARP SQ SCH ×2 (08:17→20:50)
[2018-03-10] MEDS: NICOTINE 14 MG/24 HR TDSY TD SCH (08:17)
[2018-03-10] MEDS: BOOST VANILLA PO SCH (08:17)
[2018-03-10 14:39] VITALS: BP 112/72; PULSE 72; TEMP 37.1; O2SAT 91
[2018-03-10 19:07] VITALS: BP 87/53; PULSE 76; TEMP 36.6; O2SAT 94
--- NOTE | 2018-03-10 19:13 | Progress Note ---
Medicine Progress Note Date & Time of Visit: Mar 10, 2018 at 10:50 . Subjective Better. No fever. No chest pain. No cough or shortness of breath. Appetite improved. No nausea, vomiting, abdominal pain. Incontinent of urine. Troubled by vertigo- has been a problem for months, seen by Neuro and ENT. . Objective Last 8 Hrs Date Time Temp Pulse Resp B/P (MAP) Pulse Ox O2 Delivery O2 Flow Rate FiO2 03/10/18 19:07 36.6 76 18 87/53 (64) 94 Room Air 03/10/18 16:00 Room Air 03/10/18 14:39 37.1 72 16 112/72 (85) 91 Room Air 03/10/18 12:00 Room Air Physical Exam: General- lying in bed; appears to be chronically-ill; no acute distress Eyes- purulent conjunctivitis left eye improved Lungs- clear to auscultation; no respiratory distress Cardiovascular- RRR; no murmur or gallop appreciated; no JVD; no pretibial edema Abdomen- + bowel sounds, soft, nontender Extremities- no cyanosis; no calf tenderness Neuro- alert, moderate confusion, dysarthric; PERRL, EOMI, no nystagmus Skin- warm & dry . Laboratory Results: Last 24 Hours Test 03/10/18 05:47 Sodium Level 141 mmol/L Potassium Level 4.9 mmol/L Chloride Level 113 mmol/L Carbon Dioxide Level 23 mmol/L Anion Gap 5.0 mmol/L Blood Urea Nitrogen 30 mg/dl Creatinine 1.35 mg/dl Est Creatinine Clear Calc Drug Dose 23.4 ml/min Estimated GFR () 43.5 Estimated GFR (Non- 37.5 BUN/Creatinine Ratio 22.0 Random Glucose 94 mg/dl Cal[place] Level 9.5 mg/dl Assessment & Plan ALTERED MENTAL STATUS History obtained from family indicates progressive confusion over some time. They are concerned that she is not getting adequate nutrition or hydration. They are also concerned that she is not taking her medications as instructed. Underlying bipolar disorder. Son uncertain about alcohol intake. Altered mental status could be metabolic encephalopathy or due to other factors. Head CT negative for acute event or apparent malignancy. TSH elevated- probably not taking levothyroxine properly. Macrocytosis- B 12 and folate normal. UA negative. Management of bipolar illness as discussed below. CKD IV Serum creatinine at time of admission was 1.58. Receiving IV fluids. Creatinine today = 1.35. Avoid potential nephrotoxins. Follow. HYPOTHYROIDISM TSH = 22. Patient indicates that she is not taking levothyroxine on regular basis. Continue prescribed dose of 88 mcg daily on empty stomach. Follow TSH. BIPOLAR ILLNESS [place] level 1.3 at time of admission. Prescribed diazepam 5 mg daily; unclear whether or not she is taking it as directed. Probably best to continue diazepam at this time to avoid withdrawal, but consider tapering if possible. Son indicates that patient has required inpatient psychiatric care in the past. Psychiatry consulted. WEIGHT LOSS May be multifactorial. Nutrition consulted Rule out malignancy. Follow. ? PULMONARY MASS Ill-defined 2.4 cm density right lung noted on chest x-ray, but not confirmed by CT chest. ELONGATED TOENAILS Consult Podiatry. VERTIGO Not acute. Seen by Neurology and ENT- records requested. Doubt BPPV, but will consult PT for eval. VTE PROPHYLAXIS SQ heparin. Ambulate. DISPOSITION To be determined. Anticipate need for skilled care or rehab. Internal Medicine follow-up with Dr. Blake. . Current Inpatient Medications: Current Inpatient Medications Medications (Trade) Dose Ordered Sig/Kim Route Start Time Stop Time Status Last Admin Dose Admin Heparin Sodium (Porcine) (Heparin Sq 5000 Unit/0.5ml) 5,000 unit Q12 SQ 03/06/18 21:00 04/05/18 20:59 03/10/18 08:17 5,000 UNIT Acetaminophen (Tylenol Tab) 650 mg Q4H PRN PO 03/06/18 15:00 04/05/18 14:59 03/09/18 21:29 650 MG Al Hydrox/Mg Hydrox/Simethicone (Maalox Max Susp) 15 ml Q4H PRN PO 03/06/18 15:00 04/05/18 14:59 Magnesium Hydroxide (Milk Of Magnesia Susp) 30 ml Q12H PRN PO 03/06/18 15:00 04/05/18 14:59 Ondansetron HCl (Zofran Inj) 4 mg Q6H PRN IV 03/06/18 15:00 04/05/18 14:59 Enteral Nutritional Formula (Boost) 1 can DAILY PO 03/06/18 16:00 04/05/18 15:59 03/10/18 08:17 1 CAN Aspirin (Ecotrin Tab) 81 mg DAILY PO 03/07/18 09:00 04/06/18 08:59 03/10/18 08:05 81 MG Fluoxetine HCl (Prozac Cap) 10 mg DAILY PO 03/07/18 09:00 04/06/18 08:59 03/10/18 08:03 10 MG Lamotrigine (Lamictal Tab) 50 mg DAILY PO 03/07/18 09:00 04/06/18 08:59 03/10/18 08:05 50 MG Levothyroxine Sodium (Synthroid Tab) 88 mcg DAILYBB PO 03/07/18 06:30 04/06/18 06:59 03/09/18 07:01 88 MCG Megestrol Acetate (Megace Susp) 400 mg DAILY PO 03/07/18 09:00 04/06/18 08:59 03/10/18 08:04 400 MG Nicotine (Nicoderm Cq 14MG Patch) 1 patch QAM TD 03/08/18 09:00 04/07/18 08:59 03/10/18 08:17 1 PATCH Miscellaneous (Remove Nicoderm Patch) 1 ea HS N/A 03/07/18 21:00 04/06/18 20:59 03/09/18 21:18 1 EA Gentamicin Sulfate (Gentamicin 0.3% Oph Soln) 2 drops QID OPL 03/08/18 17:00 03/18/18 16:59 03/10/18 17:16 2 DROPS Diazepam (Valium Tab) 2.5 mg HS PO 03/08/18 21:00 03/10/18 20:59 03/09/18 21:17 2.5 MG
[2018-03-10 19:32] VITALS: BP 93/52; PULSE 73
[2018-03-10] MEDS: ACETAMINOPHEN 325 MG TAB PO PRN (21:01)
[2018-03-10 23:37] VITALS: BP 106/61; PULSE 88; TEMP 36.8; O2SAT 96
[2018-03-11] MEDS: ACETAMINOPHEN 325 MG TAB PO PRN (03:42)
[2018-03-11] MEDS: LEVOTHYROXINE 88 MCG TAB PO SCH (06:04)
[2018-03-11 06:22] LABS: HEMATOCRIT 40.1 % (37-47); HEMOGLOBIN 12.7 g/dL (12.0-16.0); MEAN CELL VOLUME 104.2 fL (80-100); MEAN CORPUSCULAR HGB CONC 31.7 g/dl (32-36); PLATELET COUNT 234 K/uL (130-400); RED CELL DISTRIBUTION WIDTH CV 14.2 % (11.5-14.5); RED CELL DISTRIBUTION WIDTH SD 54.3 fL (36.4-46.3); WHITE BLOOD COUNT 5.78 K/uL (4.8-10.8)
[2018-03-11 06:52] LABS: CREATININE 1.59 mg/dl (0.60-1.20); POTASSIUM 5.1 mmol/L (3.5-5.1)
[2018-03-11 06:53] VITALS: BP 103/58; PULSE 67; TEMP 37.3; O2SAT 94
[2018-03-11] MEDS: BOOST VANILLA PO SCH (07:49)
[2018-03-11] MEDS: HEPARIN SOD 5000 UNIT/0.5 ML CARP SQ SCH ×2 (07:49→21:01)
[2018-03-11] MEDS: GENTAMICIN SULFATE 0.3% OP SOLN 5 ML BTL OPL SCH ×4 (07:49→21:00)
[2018-03-11] MEDS: MEGESTROL ACETATE SUSP 400 MG/10 ML UDC PO SCH (07:50)
[2018-03-11] MEDS: FLUOXETINE HCL 10 MG CAP PO SCH (07:50)
[2018-03-11] MEDS: ASPIRIN 81 MG ECTAB PO SCH (07:50)
[2018-03-11] MEDS: NICOTINE 14 MG/24 HR TDSY TD SCH (07:51)
[2018-03-11 15:06] VITALS: BP 110/73; PULSE 74; TEMP 37.2; O2SAT 92
[2018-03-11] MEDS: ACETAMINOPHEN SOLN 650MG/20.3 ML UDC PO PRN ×2 (15:19→21:03)
--- NOTE | 2018-03-11 20:00 | Progress Note ---
Medicine Progress Note Date & Time of Visit: Mar 11, 2018 at 11:00 . Subjective CC: Follow-up visit for confusion, weight loss, other problems.. HPI: Doing better. Less confused. Oral intake better. ROS: General- no fever, no chills Resp- no cough; no shortness of breath Cardiac- no chest pain, no edema GI- no nausea, no vomiting, no diarrhea - no dysuria, no difficulty voiding . Objective Last 8 Hrs Date Time Temp Pulse Resp B/P (MAP) Pulse Ox O2 Delivery O2 Flow Rate FiO2 03/11/18 16:00 Room Air 03/11/18 15:06 37.2 74 16 110/73 (85) 92 Room Air Physical Exam: General- lying in bed; appears to be chronically-ill; no acute distress Eyes- purulent conjunctivitis left eye improved Lungs- clear to auscultation; no respiratory distress Cardiovascular- RRR; no murmur or gallop appreciated; no JVD; no pretibial edema Abdomen- + bowel sounds, soft, nontender Extremities- no cyanosis; no calf tenderness Neuro- alert, -[id number]- mild confusion, essentially oriented x 3; dysarthric; PERRL, EOMI, no nystagmus [corrrected JAMAL 03/11/18 @ 22:06] Skin- warm & dry . Laboratory Results: Last 24 Hours Test 03/11/18 05:48 White Blood Count 5.78 K/uL Red Blood Count 3.85 M/uL Hemoglobin 12.7 g/dL Hematocrit 40.1 % Mean Corpuscular Volume 104.2 fL Mean Corpuscular Hemoglobin 33.0 pg Mean Corpuscular Hemoglobin Concent 31.7 g/dl RDW Standard Deviation 54.3 fL RDW Coefficient of Variation 14.2 % Platelet Count 234 K/uL Mean Platelet Volume 10.0 fL Sodium Level 138 mmol/L Potassium Level 5.1 mmol/L Chloride Level 112 mmol/L Carbon Dioxide Level 21 mmol/L Anion Gap 5.0 mmol/L Blood Urea Nitrogen 35 mg/dl Creatinine 1.59 mg/dl Est Creatinine Clear Calc Drug Dose 19.9 ml/min Estimated GFR () 35.7 Estimated GFR (Non- 30.8 BUN/Creatinine Ratio 21.9 Random Glucose 115 mg/dl Calcium Level 10.0 mg/dl Assessment & Plan ALTERED MENTAL STATUS History obtained from family indicates progressive confusion over some time. They are concerned that she is not getting adequate nutrition or hydration. They are also concerned that she is not taking her medications as instructed. Underlying bipolar disorder. Son uncertain about alcohol intake. Altered mental status could be metabolic encephalopathy or due to other factors. Head CT negative for acute event or apparent malignancy. TSH elevated- probably not taking levothyroxine properly. Macrocytosis- B 12 and folate normal. UA negative. Management of bipolar illness as discussed below. CKD IV CKD IV; s/p nephrectomy. Serum creatinine at time of admission was 1.58. Received IV fluids; creatinine improved to 1.35. Creatinine today = 1.59. Encourage oral fluid intake. May need to restart IV fluids if creatinine does not improve. Avoid potential nephrotoxins. Follow. HYPOTHYROIDISM TSH = 22. Patient indicates that she is not taking levothyroxine on regular basis. Continue prescribed dose of 88 mcg daily on empty stomach. Follow TSH. BIPOLAR ILLNESS [place] level 1.3 at time of admission. Prescribed diazepam 5 mg daily; unclear whether or not she is taking it as directed. Son indicates that patient has required inpatient psychiatric care in the past. Psychiatry consulted. Diazepam tapered and discontinued. Continue fluoxetine. WEIGHT LOSS May be multifactorial. Nutrition consulted Has been followed regularly by Urology for her urothelial carcinoma. Continue Megace. Follow. ? PULMONARY MASS Ill-defined 2.4 cm density right lung noted on chest x-ray, but not confirmed by CT chest. ELONGATED TOENAILS Consult Podiatry. VERTIGO Not acute. Seen by Neurology and ENT- records requested. Doubt BPPV, but will consult PT for eval. VTE PROPHYLAXIS SQ heparin. Ambulate. DISPOSITION Evaluated by PT/OT. Not safe to be discharged home. Anticipate need for skilled care or rehab. Internal Medicine follow-up with Dr. Blake. . Current Inpatient Medications: Current Inpatient Medications Medications (Trade) Dose Ordered Sig/Kim Route Start Time Stop Time Status Last Admin Dose Admin Heparin Sodium (Porcine) (Heparin Sq 5000 Unit/0.5ml) 5,000 unit Q12 SQ 03/06/18 21:00 04/05/18 20:59 03/11/18 07:49 5,000 UNIT Al Hydrox/Mg Hydrox/Simethicone (Maalox Max Susp) 15 ml Q4H PRN PO 03/06/18 15:00 04/05/18 14:59 Magnesium Hydroxide (Milk Of Magnesia Susp) 30 ml Q12H PRN PO 03/06/18 15:00 04/05/18 14:59 Ondansetron HCl (Zofran Inj) 4 mg Q6H PRN IV 03/06/18 15:00 04/05/18 14:59 Enteral Nutritional Formula (Boost) 1 can DAILY PO 03/06/18 16:00 04/05/18 15:59 03/11/18 07:49 1 CAN Aspirin (Ecotrin Tab) 81 mg DAILY PO 03/07/18 09:00 04/06/18 08:59 03/11/18 07:50 81 MG Fluoxetine HCl (Prozac Cap) 10 mg DAILY PO 03/07/18 09:00 04/06/18 08:59 03/11/18 07:50 10 MG Lamotrigine (Lamictal Tab) 50 mg DAILY PO 03/07/18 09:00 04/06/18 08:59 03/11/18 07:50 50 MG Levothyroxine Sodium (Synthroid Tab) 88 mcg DAILYBB PO 03/07/18 06:30 04/06/18 06:59 03/11/18 06:04 88 MCG Megestrol Acetate (Megace Susp) 400 mg DAILY PO 03/07/18 09:00 04/06/18 08:59 03/11/18 07:50 400 MG Nicotine (Nicoderm Cq 14MG Patch) 1 patch QAM TD 03/08/18 09:00 04/07/18 08:59 03/11/18 07:51 1 PATCH Miscellaneous (Remove Nicoderm Patch) 1 ea HS N/A 03/07/18 21:00 04/06/18 20:59 03/10/18 20:58 1 EA Gentamicin Sulfate (Gentamicin 0.3% Oph Soln) 2 drops QID OPL 03/08/18 17:00 03/18/18 16:59 03/11/18 07:49 2 DROPS Acetaminophen (Tylenol Soln) 650 mg Q6H PRN PO 03/11/18 15:15 04/10/18 15:14 03/11/18 15:19 650 MG
[2018-03-11 23:36] VITALS: BP 105/63; PULSE 79; TEMP 36.3; O2SAT 95
[2018-03-12 06:23] LABS: CALCIUM 9.3 mg/dl (8.5-10.1); CREATININE 1.57 mg/dl (0.60-1.20); POTASSIUM 4.7 mmol/L (3.5-5.1)
[2018-03-12] MEDS: LEVOTHYROXINE 88 MCG TAB PO SCH (06:36)
[2018-03-12 07:52] VITALS: BP 117/74; PULSE 77; TEMP 37; O2SAT 96
[2018-03-12] MEDS: BOOST VANILLA PO SCH (08:07)
[2018-03-12] MEDS: ASPIRIN 81 MG ECTAB PO SCH (08:07)
[2018-03-12] MEDS: FLUOXETINE HCL 10 MG CAP PO SCH (08:07)
[2018-03-12] MEDS: MEGESTROL ACETATE SUSP 400 MG/10 ML UDC PO SCH (08:07)
[2018-03-12] MEDS: NICOTINE 14 MG/24 HR TDSY TD SCH (08:08)
[2018-03-12] MEDS: HEPARIN SOD 5000 UNIT/0.5 ML CARP SQ SCH ×2 (08:12→21:11)
[2018-03-12] MEDS: GENTAMICIN SULFATE 0.3% OP SOLN 5 ML BTL OPL SCH ×3 (08:14→16:27)
[2018-03-12 16:00] VITALS: O2SAT 96
[2018-03-12 16:30] VITALS: BP 112/71; PULSE 72; TEMP 37.2; O2SAT 93
--- NOTE | 2018-03-12 17:30 | Progress Note ---
Medicine Progress Note Date & Time of Visit: Mar 12, 2018 . Subjective CC: Follow-up visit for confusion, dehydration, other problems.. HPI: Doing better. Oral intake better. Less confused. Cooperative; does not require 1:1 staffing. ROS: General- no fever, no chills Resp- no cough; no shortness of breath Cardiac- no chest pain, no edema GI- no nausea, no vomiting, no diarrhea - no dysuria, no difficulty voiding . Objective Last 8 Hrs Date Time Temp Pulse Resp B/P (MAP) Pulse Ox O2 Delivery O2 Flow Rate FiO2 03/12/18 16:30 37.2 72 16 112/71 (85) 93 Room Air 03/12/18 16:00 96 Room Air Physical Exam: General- lying in bed; appears to be chronically-ill; no acute distress Eyes- purulent conjunctivitis left eye improved Lungs- clear to auscultation; no respiratory distress Cardiovascular- RRR; no murmur or gallop appreciated; no JVD; no pretibial edema Abdomen- + bowel sounds, soft, nontender Extremities- no cyanosis; no calf tenderness Neuro- alert, oriented to person, place, year; can name current president; unsteady gait, requires assistance with ambulation Skin- warm & dry . Laboratory Results: Last 24 Hours Test 03/12/18 05:41 Sodium Level 138 mmol/L Potassium Level 4.7 mmol/L Chloride Level 110 mmol/L Carbon Dioxide Level 24 mmol/L Anion Gap 4.0 mmol/L Blood Urea Nitrogen 31 mg/dl Creatinine 1.57 mg/dl Est Creatinine Clear Calc Drug Dose 20.1 ml/min Estimated GFR () 36.2 Estimated GFR (Non- 31.3 BUN/Creatinine Ratio 19.8 Random Glucose 98 mg/dl Calcium Level 9.3 mg/dl Assessment & Plan ALTERED MENTAL STATUS History obtained from family indicates progressive confusion over some time. They are concerned that she is not getting adequate nutrition or hydration. They are also concerned that she is not taking her medications as instructed. Underlying bipolar disorder. Son uncertain about alcohol intake. Altered mental status could be metabolic encephalopathy or due to other factors. Head CT negative for acute event or apparent malignancy. TSH elevated- probably not taking levothyroxine properly. Macrocytosis- B 12 and folate normal. UA negative. Management of bipolar illness as discussed below. CKD IV CKD IV; s/p nephrectomy. Serum creatinine at time of admission was 1.58. Received IV fluids; creatinine improved to 1.35. Creatinine today = 1.57. Encourage oral fluid intake. Avoid potential nephrotoxins. Follow. HYPOTHYROIDISM TSH = 22. Patient indicates that she is not taking levothyroxine on regular basis. Continue prescribed dose of 88 mcg daily on empty stomach. Recheck TSH in about 6 weeks. BIPOLAR ILLNESS [place] level 1.3 at time of admission. Prescribed diazepam 5 mg daily; unclear whether or not she is taking it as directed. Son indicates that patient has required inpatient psychiatric care in the past. Psychiatry consulted. Diazepam tapered and discontinued. Continue fluoxetine. WEIGHT LOSS May be multifactorial. Nutrition consulted Has been followed regularly by Urology for her urothelial carcinoma. Appetite improved. Continue Megace. Follow. ? PULMONARY MASS Ill-defined 2.4 cm density right lung noted on chest x-ray, but not confirmed by CT chest. AMBULATORY DYSFUNCTION / ? VERTIGO Worsening ambulatory dysfunction for > 1 year. Seen by Neurology and ENT. 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 [place] to have multifactorial dysequilibrium. Continue PT, OT. VTE PROPHYLAXIS SQ heparin. Ambulate. DISPOSITION Evaluated by PT/OT. Not safe to be discharged home. Anticipate need for skilled care or rehab. Internal Medicine follow-up with Dr. Blake. . Current Inpatient Medications: Current Inpatient Medications Medications (Trade) Dose Ordered Sig/Kim Route Start Time Stop Time Status Last Admin Dose Admin Heparin Sodium (Porcine) (Heparin Sq 5000 Unit/0.5ml) 5,000 unit Q12 SQ 03/06/18 21:00 04/05/18 20:59 03/12/18 08:12 5,000 UNIT Al Hydrox/Mg Hydrox/Simethicone (Maalox Max Susp) 15 ml Q4H PRN PO 03/06/18 15:00 04/05/18 14:59 Magnesium Hydroxide (Milk Of Magnesia Susp) 30 ml Q12H PRN PO 03/06/18 15:00 04/05/18 14:59 Ondansetron HCl (Zofran Inj) 4 mg Q6H PRN IV 03/06/18 15:00 04/05/18 14:59 Enteral Nutritional Formula (Boost) 1 can DAILY PO 03/06/18 16:00 04/05/18 15:59 4/17/18 08:07 1 CAN Aspirin (Ecotrin Tab) 81 mg DAILY PO 03/07/18 09:00 04/06/18 08:59 03/12/18 08:07 81 MG Fluoxetine HCl (Prozac Cap) 10 mg DAILY PO 03/07/18 09:00 04/06/18 08:59 03/12/18 08:07 10 MG Lamotrigine (Lamictal Tab) 50 mg DAILY PO 03/07/18 09:00 04/06/18 08:59 03/12/18 08:07 50 MG Levothyroxine Sodium (Synthroid Tab) 88 mcg DAILYBB PO 03/07/18 06:30 04/06/18 06:59 03/12/18 06:36 88 MCG Megestrol Acetate (Megace Susp) 400 mg DAILY PO 03/07/18 09:00 04/06/18 08:59 03/12/18 08:07 400 MG Nicotine (Nicoderm Cq 14MG Patch) 1 patch QAM TD 03/08/18 09:00 04/07/18 08:59 03/12/18 08:08 1 PATCH Miscellaneous (Remove Nicoderm Patch) 1 ea HS N/A 03/07/18 21:00 04/06/18 20:59 03/11/18 21:02 1 EA Gentamicin Sulfate (Gentamicin 0.3% Oph Soln) 2 drops QID OPL 03/08/18 17:00 03/18/18 16:59 03/11/18 07:49 2 DROPS Acetaminophen (Tylenol Soln) 650 mg Q6H PRN PO 03/11/18 15:15 04/10/18 15:14 03/11/18 21:03 650 MG
[2018-03-12] MEDS: ACETAMINOPHEN SOLN 650MG/20.3 ML UDC PO PRN (21:08)
[2018-03-13] VITALS: BP 97/59; PULSE 83; TEMP 37.1; O2SAT 94
[2018-03-13] MEDS: LEVOTHYROXINE 88 MCG TAB PO SCH (05:21)
[2018-03-13 07:23] VITALS: BP 101/57; PULSE 69; TEMP 37; O2SAT 97
[2018-03-13] MEDS: BOOST VANILLA PO SCH (07:56)
[2018-03-13] MEDS: ASPIRIN 81 MG ECTAB PO SCH (08:00)
[2018-03-13] MEDS: FLUOXETINE HCL 10 MG CAP PO SCH (08:00)
[2018-03-13] MEDS: MEGESTROL ACETATE SUSP 400 MG/10 ML UDC PO SCH (08:00)
[2018-03-13] MEDS: NICOTINE 14 MG/24 HR TDSY TD SCH (08:01)
[2018-03-13] MEDS: ACETAMINOPHEN SOLN 650MG/20.3 ML UDC PO PRN ×2 (08:04→20:46)
[2018-03-13] MEDS: HEPARIN SOD 5000 UNIT/0.5 ML CARP SQ SCH ×2 (08:04→20:29)
--- NOTE | 2018-03-13 11:32 | Progress Note ---
Internal Med Progress Note Date of Service: Mar 13, 2018. Provider Documentation: SUBJECTIVE: The patient was seen and examined in telemetry unit She was admitted with change in mental status She has been feeling a lot better since admission Denies any symptoms as of today Clinically stable to be discharged OBJECTIVE: Vital Signs-as noted below Exam: General-no distress at rest Eyes-normal ENT-normal Neck-supple Lungs-clear to auscultate bilaterally Heart-S1-S2 regular, no murmur appreciated Abdomen-benign, soft, nontender Extremities-no edema Neuro-alert, awake, pleasantly confused No focal sensory and/or motor deficit Lab data as noted below. ASSESSMENT & PLAN: ALTERED MENTAL STATUS History obtained from family indicates progressive confusion over some time. They are concerned that she is not getting adequate nutrition or hydration. They are also concerned that she is not taking her medications as instructed. Underlying bipolar disorder. Altered mental status could be metabolic encephalopathy or due to other factors. Head CT negative for acute event or apparent malignancy. TSH elevated- probably not taking levothyroxine properly. Macrocytosis- B 12 and folate normal. UA negative. Management of bipolar illness as discussed below. Her mental status is at baseline and she will be going to [facility] today CKD IV CKD IV; s/p nephrectomy. Serum creatinine at time of admission was 1.58. Received IV fluids; creatinine improved to 1.35. Creatinine today = 1.57. Encourage oral fluid intake. Avoid potential nephrotoxins. Creatinine remains stable at around 1.5 Advised to drink more fluid HYPOTHYROIDISM TSH = 22. Patient indicates that she is not taking levothyroxine on regular basis. Continue prescribed dose of 88 mcg daily on empty stomach. Recheck TSH in about 6 weeks. BIPOLAR ILLNESS [place] level 1.3 at time of admission. Prescribed diazepam 5 mg daily; unclear whether or not she is taking it as directed. Son indicates that patient has required inpatient psychiatric care in the past. Psychiatry consulted-appreciate input. Diazepam tapered and discontinued. Continue fluoxetine. Discussed with the psychiatrist Her lithium will be on hold until she sees psychiatrist as an outpatient WEIGHT LOSS May be multifactorial. Nutrition consulted Has been followed regularly by Urology for her urothelial carcinoma. Appetite improved. Continue Megace. PULMONARY MASS Ill-defined 2.4 cm density right lung noted on chest x-ray, but not confirmed by CT chest. AMBULATORY DYSFUNCTION / ? VERTIGO Worsening ambulatory dysfunction for > 1 year. Seen by Neurology and ENT. 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 [place] to have multifactorial dysequilibrium. Continue PT, OT. Will be discharged to [facility] for rehab today VTE PROPHYLAXIS SQ heparin. Ambulate. DISPOSITION Evaluated by PT/OT. Not safe to be discharged home. Anticipate need for skilled care or rehab-likely to go to [facility] today 03/13. Internal Medicine follow-up with Dr. Blake. Vital Signs: Date Time Temp Pulse Resp B/P (MAP) Pulse Ox O2 Delivery O2 Flow Rate FiO2 03/13/18 08:00 Room Air 03/13/18 07:23 37.0 69 18 101/57 (72) 97 Room Air 03/13/18 00:00 37.1 83 20 97/59 (72) 94 Room Air 03/13/18 00:00 Room Air 03/12/18 16:30 37.2 72 16 112/71 (85) 93 Room Air 03/12/18 16:00 96 Room Air
--- NOTE | 2018-03-13 13:23 | Podiatry Consultation ---
Podiatry Consultation Date of Consultation: Mar 13, 2018. Attending Physician: Moe Arias M.D. History of Present Illness Patient has c/o painful elongated toenails to bilateral feet. Does not recall last time she had them debrided. Was previously seen by another physician with my practice but has not been following regularly. She relates pain with ambulation and shoe gear. Past Medical/Surgical History Medical Problems: (1) Acute on chronic renal failure Status: Acute (2) Altered mental status Status: Acute (3) COPD exacerbation Status: Acute (4) Dehydration Status: Acute (5) Dehydration Status: Acute (6) Fall Status: Acute (7) Falls Status: Acute (8) Frequent falls Status: Acute (9) Head injury Status: Acute (10) Hypoxia Status: Acute (11) UTI (urinary tract infection) Status: Acute (12) Weakness Status: Acute (13) Weakness Status: Acute Family History Diabetes mellitus FH: cancer FATHER (prostate CA) MOTHER (bone CA) Hypertension Social History Smoking Status: Current Every Day Smoker (1ppd x 30 years) Smokeless Tobacco Use: No Alcohol Use: none Drug Use: none Marital Status: Housing Status: lives alone, lives with family Occupation Status: retired Allergies Coded Allergies: Penicillins (Verified Allergy, Mild, RASH, 07/14/17) pt stated has had more recently with no reaction Home Medications Scheduled Aspirin (Aspirin Ec), 81 MG PO DAILY Biotin (Biotin), 1 MG PO DAILY Calcium Carbonate-Cholecalcife (Caltrate 600+D), 1 TAB PO DAILY Diazepam (Diazepam), 5 MG PO DAILY Fluoxetine Hcl (Pmdd) (Prozac), 1 CAP PO DAILY Gabapentin (Gabapentin), 1 CAP PO HS Lamotrigine (Lamictal), 0.5 TAB PO DAILY Levothyroxine Sodium (Levothyroxine Sodium), 88 MCG PO DAILY [place] Carbonate ([place] Carbonate), 150 MG PO BID Megestrol Acetate (Megestrol Acetate), 10 ML PO DAILY Scheduled PRN Acetaminophen (Tylenol), 650 MG PO Q4 PRN for Headache or Pain Current Inpatient Medications Current Inpatient Medications Medications (Trade) Dose Ordered Sig/Kim Route Start Time Stop Time Status Last Admin Dose Admin Heparin Sodium (Porcine) (Heparin Sq 5000 Unit/0.5ml) 5,000 unit Q12 SQ 03/06/18 21:00 04/05/18 20:59 03/13/18 08:04 5,000 UNIT Al Hydrox/Mg Hydrox/Simethicone (Maalox Max Susp) 15 ml Q4H PRN PO 03/06/18 15:00 04/05/18 14:59 Magnesium Hydroxide (Milk Of Magnesia Susp) 30 ml Q12H PRN PO 03/06/18 15:00 04/05/18 14:59 Ondansetron HCl (Zofran Inj) 4 mg Q6H PRN IV 03/06/18 15:00 04/05/18 14:59 Enteral Nutritional Formula (Boost) 1 can DAILY PO 03/06/18 16:00 04/05/18 15:59 03/12/18 08:07 1 CAN Aspirin (Ecotrin Tab) 81 mg DAILY PO 03/07/18 09:00 04/06/18 08:59 03/13/18 08:00 81 MG Fluoxetine HCl (Prozac Cap) 10 mg DAILY PO 03/07/18 09:00 04/06/18 08:59 03/13/18 08:00 10 MG Lamotrigine (Lamictal Tab) 50 mg DAILY PO 03/07/18 09:00 04/06/18 08:59 03/13/18 08:00 50 MG Levothyroxine Sodium (Synthroid Tab) 88 mcg DAILYBB PO 03/07/18 06:30 04/06/18 06:59 03/13/18 05:21 88 MCG Megestrol Acetate (Megace Susp) 400 mg DAILY PO 03/07/18 09:00 04/06/18 08:59 03/13/18 08:00 400 MG Nicotine (Nicoderm Cq 14MG Patch) 1 patch QAM TD 03/08/18 09:00 04/07/18 08:59 03/13/18 08:01 1 PATCH Miscellaneous (Remove Nicoderm Patch) 1 ea HS N/A 03/07/18 21:00 04/06/18 20:59 03/12/18 21:08 1 EA Acetaminophen (Tylenol Soln) 650 mg Q6H PRN PO 03/11/18 15:15 04/10/18 15:14 03/13/18 08:04 650 MG Review of Systems Constitutional: No fever, No chills, No sweats, No weight loss, No weakness, No fatigue, No problem reported Eyes: No worsening of vision, No eye pain, No redness, No discharge, No diplopia, No problem reported ENT: No hearing loss, No unusual epistaxis, No nasal symptoms, No sore throat, No tinnitus, No dental problems, No trouble swallowing, No problem reported Respiratory: No cough, No sputum, No wheezing, No shortness of breath, No dyspnea on exertion, No dyspnea at rest, No hemoptysis, No problem reported Cardiovascular: No chest pain, No orthopnea, No PND, No edema, No claudication , No palpitations, No problem reported Abdomen: No pain, No nausea, No vomiting, No diarrhea, No constipation, No GI bleeding, No problem reported Musculoskeletal: No joint pain, No muscle pain, No swelling, No calf pain, No problem reported Endocrine: No fatigue, No excessive thirst, No excessive urination, No problem reported Hematologic / Lymphatic: No abnormal bleeding/bruising, No clotting problems, No swollen lymph nodes, No night sweats, No problem reported Integumentary: No rash, No itch, No new/changing skin lesions, No color change , No bleeding, No problem reported Physical Exam Date Time Temp Pulse Resp B/P (MAP) Pulse Ox O2 Delivery O2 Flow Rate FiO2 03/13/18 08:00 Room Air 03/13/18 07:23 37.0 69 18 101/57 (72) 97 Room Air 03/13/18 00:00 37.1 83 20 97/59 (72) 94 Room Air 03/13/18 00:00 Room Air 03/12/18 16:30 37.2 72 16 112/71 (85) 93 Room Air 03/12/18 16:00 96 Room Air General Appearance: no apparent distress Cardiovascular: regular rate, rhythm (as palpated peripherally with intact pedal pulses. ) Extremities/Musculoskelatal: no pedal edema, normal range of motion, + pedal edema Neurologic/Psych: + pertinent finding (No LOPS to b/l LE ) Skin: + pertinent finding (tender elongated nails 1,2,3,4 and 5 of the bilateral feet that are TYC with subungual debris. ) Assessment & Plan Onychomycosis - She has painfully elongated toenails that were debrided manually today at bedside. I explained that she should be followed as on outpatient for her fungal toenails. Please have her follow up with my office in 9 weeks at [phone]. Thank you for the consultation and allowing me to take part in this patients care.
[2018-03-13 16:02] VITALS: BP 108/68; PULSE 66; TEMP 37.3; O2SAT 97
[2018-03-13 22:43] VITALS: BP 107/65; PULSE 74; TEMP 37.2; O2SAT 95
[2018-03-14] MEDS: ACETAMINOPHEN SOLN 650MG/20.3 ML UDC PO PRN ×2 (03:13→21:00)
[2018-03-14] MEDS: LEVOTHYROXINE 88 MCG TAB PO SCH (06:09)
[2018-03-14 07:24] VITALS: BP 135/78; PULSE 74; TEMP 36.9; O2SAT 95
[2018-03-14] MEDS: MEGESTROL ACETATE SUSP 400 MG/10 ML UDC PO SCH (07:54)
[2018-03-14] MEDS: NICOTINE 14 MG/24 HR TDSY TD SCH (07:54)
[2018-03-14] MEDS: FLUOXETINE HCL 10 MG CAP PO SCH (07:54)
[2018-03-14] MEDS: ASPIRIN 81 MG ECTAB PO SCH (07:54)
[2018-03-14] MEDS: BOOST VANILLA PO SCH (07:59)
[2018-03-14] MEDS: HEPARIN SOD 5000 UNIT/0.5 ML CARP SQ SCH ×2 (07:59→21:05)
--- NOTE | 2018-03-14 13:12 | Progress Note ---
Internal Med Progress Note Date of Service: Mar 14, 2018. Provider Documentation: SUBJECTIVE: The patient was seen and examined in telemetry unit She was admitted with change in mental status She has been feeling a lot better since admission Clinically stable to be discharged Denies any symptoms OBJECTIVE: Vital Signs-as noted below Exam: General-no distress at rest Eyes-normal ENT-normal Neck-supple Lungs-clear to auscultate bilaterally Heart-S1-S2 regular, no murmur appreciated Abdomen-benign, soft, nontender Extremities-no edema Neuro-alert, awake, pleasantly confused No focal sensory and/or motor deficit Lab data as noted below. ASSESSMENT & PLAN: ALTERED MENTAL STATUS History obtained from family indicates progressive confusion over some time. They are concerned that she is not getting adequate nutrition or hydration. They are also concerned that she is not taking her medications as instructed. Underlying bipolar disorder. Altered mental status could be metabolic encephalopathy or due to other factors. Head CT negative for acute event or apparent malignancy. TSH elevated- probably not taking levothyroxine properly. Macrocytosis- B 12 and folate normal. UA negative. Management of bipolar illness as discussed below. Her mental status is at baseline and she will be going to [facility] when accepted Onychomycosis She has painfully elongated toenails that were debrided manually today at bedside. I explained that she should be followed as on outpatient for her fungal toenails. Please have her follow up with my office in 9 weeks at [phone]. CKD IV CKD IV; s/p nephrectomy. Serum creatinine at time of admission was 1.58. Received IV fluids; creatinine improved to 1.35. Creatinine today = 1.57. Encourage oral fluid intake. Avoid potential nephrotoxins. Creatinine remains stable at around 1.5 Advised to drink more fluid-remains stable HYPOTHYROIDISM TSH = 22. Patient indicates that she is not taking levothyroxine on regular basis. Continue prescribed dose of 88 mcg daily on empty stomach. Recheck TSH in about 6 weeks. BIPOLAR ILLNESS [place] level 1.3 at time of admission. Prescribed diazepam 5 mg daily; unclear whether or not she is taking it as directed. Son indicates that patient has required inpatient psychiatric care in the past. Psychiatry consulted-appreciate input. Diazepam tapered and discontinued. Continue fluoxetine. Discussed with the psychiatrist Her lithium will be on hold until she sees psychiatrist as an outpatient WEIGHT LOSS May be multifactorial. Nutrition consulted Has been followed regularly by Urology for her urothelial carcinoma. Appetite improved. Continue Megace. PULMONARY MASS-Ruled Out by CT Ill-defined 2.4 cm density right lung noted on chest x-ray, but not confirmed by CT chest. AMBULATORY DYSFUNCTION / ? VERTIGO Worsening ambulatory dysfunction for > 1 year. Seen by Neurology and ENT. 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 [place] to have multifactorial dysequilibrium. Continue PT, OT. Will be discharged to [facility] for rehab today VTE PROPHYLAXIS SQ heparin. Ambulate. DISPOSITION Evaluated by PT/OT. Not safe to be discharged home. Anticipate need for skilled care or rehab-likely to go to [facility] when accepted Internal Medicine follow-up with Dr. Blake. Vital Signs: Date Time Temp Pulse Resp B/P (MAP) Pulse Ox O2 Delivery O2 Flow Rate FiO2 03/14/18 08:00 Room Air 03/14/18 07:24 36.9 74 20 135/78 (97) 95 03/14/18 00:00 Room Air 03/13/18 22:43 37.2 74 16 107/65 (79) 95 Room Air 03/13/18 16:02 37.3 66 16 108/68 (81) 97 Room Air 03/13/18 16:00 Room Air
[2018-03-14 14:46] VITALS: BP 137/68; PULSE 73; TEMP 36.8; O2SAT 100
[2018-03-14 20:00] VITALS: BP 129/79; PULSE 74; TEMP 37; O2SAT 98
[2018-03-15 00:09] VITALS: BP 122/75; PULSE 67; TEMP 36.7; O2SAT 98
[2018-03-15] MEDS: LEVOTHYROXINE 88 MCG TAB PO SCH (06:25)
[2018-03-15] MEDS: ACETAMINOPHEN SOLN 650MG/20.3 ML UDC PO PRN ×2 (06:37→20:51)
[2018-03-15 07:23] VITALS: BP 108/64; PULSE 68; TEMP 36.7; O2SAT 97
[2018-03-15] MEDS: FLUOXETINE HCL 10 MG CAP PO SCH (08:53)
[2018-03-15] MEDS: NICOTINE 14 MG/24 HR TDSY TD SCH (08:55)
[2018-03-15] MEDS: ASPIRIN 81 MG ECTAB PO SCH (08:56)
[2018-03-15] MEDS: BOOST VANILLA PO SCH (08:59)
[2018-03-15] MEDS: HEPARIN SOD 5000 UNIT/0.5 ML CARP SQ SCH ×2 (08:59→20:49)
[2018-03-15] MEDS: MEGESTROL ACETATE SUSP 400 MG/10 ML UDC PO SCH (09:04)
--- NOTE | 2018-03-15 11:13 | Progress Note ---
Internal Med Progress Note Date of Service: Mar 15, 2018. Provider Documentation: SUBJECTIVE: The patient was seen and examined in telemetry unit She was admitted with change in mental status She has been feeling a lot better since admission Awaiting placement Denies any symptoms OBJECTIVE: Vital Signs-as noted below Exam: General-no distress at rest Eyes-normal ENT-normal Neck-supple Lungs-clear to auscultate bilaterally Heart-S1-S2 regular, no murmur appreciated Abdomen-benign, soft, nontender Extremities-no edema Neuro-alert, awake, pleasantly confused No focal sensory and/or motor deficit Lab data as noted below. ASSESSMENT & PLAN: ALTERED MENTAL STATUS History obtained from family indicates progressive confusion over some time. They are concerned that she is not getting adequate nutrition or hydration. They are also concerned that she is not taking her medications as instructed. Underlying bipolar disorder. Altered mental status could be metabolic encephalopathy or due to other factors. Head CT negative for acute event or apparent malignancy. TSH elevated- probably not taking levothyroxine properly. Macrocytosis- B 12 and folate normal. UA negative. Management of bipolar illness as discussed below. Her mental status is at baseline and she will be going to [facility] when accepted Clinically stable -awaiting placement Onychomycosis She has painfully elongated toenails that were debrided manually today at bedside. I explained that she should be followed as on outpatient for her fungal toenails. Please have her follow up with my office in 9 weeks at [phone]. CKD IV CKD IV; s/p nephrectomy. Serum creatinine at time of admission was 1.58. Received IV fluids; creatinine improved to 1.35. Creatinine today = 1.57. Encourage oral fluid intake. Avoid potential nephrotoxins. Creatinine remains stable at around 1.5 Advised to drink more fluid-remains stable HYPOTHYROIDISM TSH = 22. Patient indicates that she is not taking levothyroxine on regular basis. Continue prescribed dose of 88 mcg daily on empty stomach. Recheck TSH in about 6 weeks. BIPOLAR ILLNESS [place] level 1.3 at time of admission. Prescribed diazepam 5 mg daily; unclear whether or not she is taking it as directed. Son indicates that patient has required inpatient psychiatric care in the past. Psychiatry consulted-appreciate input. Diazepam tapered and discontinued. Continue fluoxetine. Discussed with the psychiatrist Her lithium will be on hold until she sees psychiatrist as an outpatient WEIGHT LOSS May be multifactorial. Nutrition consulted Has been followed regularly by Urology for her urothelial carcinoma. Appetite improved. Continue Megace.and encourage more food intake PULMONARY MASS-Ruled Out by CT Ill-defined 2.4 cm density right lung noted on chest x-ray, but not confirmed by CT chest. AMBULATORY DYSFUNCTION / ? VERTIGO Worsening ambulatory dysfunction for > 1 year. Seen by Neurology and ENT. 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 [place] to have multifactorial dysequilibrium. Continue PT, OT. Will be discharged to [facility] for rehab when a bed is available VTE PROPHYLAXIS SQ heparin. Ambulate. DISPOSITION Evaluated by PT/OT. Not safe to be discharged home. Anticipate need for skilled care or rehab-likely to go to [facility] when accepted Internal Medicine follow-up with Dr. Blake. Vital Signs: Date Time Temp Pulse Resp B/P (MAP) Pulse Ox O2 Delivery O2 Flow Rate FiO2 03/15/18 07:23 36.7 68 16 108/64 (79) 97 Room Air 03/15/18 00:35 Room Air 03/15/18 00:09 36.7 67 20 122/75 (91) 98 Room Air 03/14/18 20:00 37.0 74 20 129/79 (96) 98 Room Air 03/14/18 16:00 Room Air 03/14/18 14:46 36.8 73 20 137/68 (91) 100
[2018-03-15 14:44] VITALS: BP 125/71; PULSE 73; TEMP 36.6; O2SAT 98
[2018-03-15 23:11] VITALS: BP 103/64; PULSE 62; TEMP 36.6; O2SAT 97
[2018-03-16] MEDS: LEVOTHYROXINE 88 MCG TAB PO SCH (06:34)
[2018-03-16 06:46] VITALS: BP 125/64; PULSE 73; TEMP 36.7; O2SAT 99
[2018-03-16] MEDS: BOOST VANILLA PO SCH (07:42)
[2018-03-16] MEDS: ACETAMINOPHEN SOLN 650MG/20.3 ML UDC PO PRN ×2 (07:44→20:11)
[2018-03-16] MEDS: MEGESTROL ACETATE SUSP 400 MG/10 ML UDC PO SCH (07:45)
[2018-03-16] MEDS: FLUOXETINE HCL 10 MG CAP PO SCH (07:46)
[2018-03-16] MEDS: NICOTINE 14 MG/24 HR TDSY TD SCH (07:47)
[2018-03-16] MEDS: ASPIRIN 81 MG ECTAB PO SCH (07:47)
[2018-03-16] MEDS: HEPARIN SOD 5000 UNIT/0.5 ML CARP SQ SCH ×2 (07:48→20:14)
[2018-03-16 11:13] LABS: HEMATOCRIT 39.4 % (37-47); HEMOGLOBIN 12.6 g/dL (12.0-16.0); MEAN CELL VOLUME 103.1 fL (80-100); MEAN PLATELET VOLUME 9.3 fL (7.4-10.4); PLATELET COUNT 284 K/uL (130-400); RED CELL DISTRIBUTION WIDTH SD 52.7 fL (36.4-46.3); WHITE BLOOD COUNT 6.53 K/uL (4.8-10.8)
[2018-03-16 11:30] LABS: CALCIUM 9.6 mg/dl (8.5-10.1); CREATININE 1.54 mg/dl (0.60-1.20); POTASSIUM 4.6 mmol/L (3.5-5.1)
--- NOTE | 2018-03-16 11:44 | Progress Note ---
Internal Med Progress Note Date of Service: Mar 16, 2018. Provider Documentation: SUBJECTIVE: The patient was seen and examined in telemetry unit She was admitted with change in mental status She has been feeling a lot better since admission Remains stable at rest Awaiting placement -wants to be discharged soon. OBJECTIVE: Vital Signs-as noted below Exam: General-no distress at rest Eyes-normal ENT-normal Neck-supple Lungs-clear to auscultate bilaterally Heart-S1-S2 regular, no murmur appreciated Abdomen-benign, soft, nontender Extremities-no edema Neuro-alert, awake, pleasantly confused No focal sensory and/or motor deficit Lab data as noted below. ASSESSMENT & PLAN: ALTERED MENTAL STATUS History obtained from family indicates progressive confusion over some time. They are concerned that she is not getting adequate nutrition or hydration. They are also concerned that she is not taking her medications as instructed. Underlying bipolar disorder. Altered mental status could be metabolic encephalopathy or due to other factors. Head CT negative for acute event or apparent malignancy. TSH elevated- probably not taking levothyroxine properly. Macrocytosis- B 12 and folate normal. UA negative. Her mental status is at baseline and she will be going to [facility] when accepted Clinically stable -awaiting placement Onychomycosis She has painfully elongated toenails that were debrided manually today at bedside. I explained that she should be followed as on outpatient for her fungal toenails. Please have her follow up with my office in 9 weeks at [phone]. Denies any issue with the nail CKD IV CKD IV; s/p nephrectomy. Serum creatinine at time of admission was 1.58. Received IV fluids; creatinine improved to 1.35. Creatinine today = 1.57. Encourage oral fluid intake. Avoid potential nephrotoxins. Creatinine remains stable at around 1.5 Advised to drink more fluid-remains stable Check PRP today HYPOTHYROIDISM TSH = 22. Patient indicates that she is not taking levothyroxine on regular basis. Continue prescribed dose of 88 mcg daily on empty stomach. Recheck TSH in about 6 weeks. BIPOLAR ILLNESS [place] level 1.3 at time of admission. Prescribed diazepam 5 mg daily; unclear whether or not she is taking it as directed. Son indicates that patient has required inpatient psychiatric care in the past. Psychiatry consulted-appreciate input. Diazepam tapered and discontinued. Continue fluoxetine. Discussed with the psychiatrist Her lithium will be on hold until she sees psychiatrist as an outpatient- already has an appointment WEIGHT LOSS May be multifactorial. Nutrition consulted Has been followed regularly by Urology for her urothelial carcinoma. Appetite improved. Continue Megace.and encourage more food intake PULMONARY MASS-Ruled Out by CT Ill-defined 2.4 cm density right lung noted on chest x-ray, but not confirmed by CT chest. AMBULATORY DYSFUNCTION / ? VERTIGO Worsening ambulatory dysfunction for > 1 year. Seen by Neurology and ENT. 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 [place] to have multifactorial dysequilibrium. Continue PT, OT. Will be discharged to [facility] for rehab when a bed is available VTE PROPHYLAXIS SQ heparin. Ambulate. DISPOSITION Evaluated by PT/OT. Not safe to be discharged home. Anticipate need for skilled care or rehab-likely to go to [facility] when accepted Internal Medicine follow-up with Dr. Blake. Vital Signs: Date Time Temp Pulse Resp B/P (MAP) Pulse Ox O2 Delivery O2 Flow Rate FiO2 03/16/18 08:00 Room Air 03/16/18 06:46 36.7 73 16 125/64 (84) 99 Room Air 03/16/18 00:25 Room Air 03/15/18 23:11 36.6 62 17 103/64 (77) 97 Room Air 03/15/18 16:29 Room Air 03/15/18 14:44 36.6 73 16 125/71 (89) 98 Room Air Lab Results: Results Past 24 Hours Test 03/16/18 11:03 Range/Units White Blood Count 6.53 4.8-10.8 K/uL Red Blood Count 3.82 4.2-5.4 M/uL Hemoglobin 12.6 12.0-16.0 g/dL Hematocrit 39.4 37-47 % Mean Corpuscular Volume 103.1 80-100 fL Mean Corpuscular Hemoglobin 33.0 25-34 pg Mean Corpuscular Hemoglobin Concent 32.0 32-36 g/dl RDW Standard Deviation 52.7 36.4-46.3 fL RDW Coefficient of Variation 14.0 11.5-14.5 % Platelet Count 284 130-400 K/uL Mean Platelet Volume 9.3 7.4-10.4 fL
[2018-03-16 14:33] VITALS: BP 121/65; PULSE 69; TEMP 36.6; O2SAT 99
[2018-03-16 20:00] VITALS: O2SAT 99
[2018-03-16 23:06] VITALS: BP 110/67; PULSE 70; TEMP 37; O2SAT 99
[2018-03-17] VITALS: O2SAT 99
[2018-03-17] MEDS: ACETAMINOPHEN SOLN 650MG/20.3 ML UDC PO PRN ×2 (03:15→19:27)
[2018-03-17] MEDS: LEVOTHYROXINE 88 MCG TAB PO SCH (06:04)
[2018-03-17 07:35] VITALS: BP 116/65; PULSE 68; TEMP 36.7; O2SAT 99
[2018-03-17] MEDS: BOOST VANILLA PO SCH (08:00)
[2018-03-17] MEDS: MEGESTROL ACETATE SUSP 400 MG/10 ML UDC PO SCH (08:00)
[2018-03-17] MEDS: ASPIRIN 81 MG ECTAB PO SCH (08:22)
[2018-03-17] MEDS: NICOTINE 14 MG/24 HR TDSY TD SCH (08:23)
[2018-03-17] MEDS: FLUOXETINE HCL 10 MG CAP PO SCH (08:23)
[2018-03-17] MEDS: HEPARIN SOD 5000 UNIT/0.5 ML CARP SQ SCH ×2 (08:28→21:00)
--- NOTE | 2018-03-17 14:07 | Progress Note ---
Internal Med Progress Note Date of Service: Mar 17, 2018. Provider Documentation: SUBJECTIVE: The patient was seen and examined in telemetry unit She was admitted with change in mental status She has been feeling a lot better since admission Remains stable at rest Awaiting placement -wants to be discharged soon. Denies any symptoms Awaiting to be transferred OBJECTIVE: Vital Signs-as noted below Exam: General-no distress at rest Eyes-normal ENT-normal Neck-supple Lungs-clear to auscultate bilaterally Heart-S1-S2 regular, no murmur appreciated Abdomen-benign, soft, nontender Extremities-no edema Neuro-alert, awake, pleasantly confused No focal sensory and/or motor deficit Lab data as noted below. ASSESSMENT & PLAN: ALTERED MENTAL STATUS History obtained from family indicates progressive confusion over some time. They are concerned that she is not getting adequate nutrition or hydration. They are also concerned that she is not taking her medications as instructed. Underlying bipolar disorder. Altered mental status could be metabolic encephalopathy or due to other factors. Head CT negative for acute event or apparent malignancy. TSH elevated- probably not taking levothyroxine properly. Macrocytosis- B 12 and folate normal. UA negative. Her mental status is at baseline and she will be going to [facility] when accepted Clinically stable -awaiting placement No new symptoms Onychomycosis She has painfully elongated toenails that were debrided manually today at bedside. I explained that she should be followed as on outpatient for her fungal toenails. Please have her follow up with my office in 9 weeks at [phone]. Denies any issue with the nail CKD IV CKD IV; s/p nephrectomy. Serum creatinine at time of admission was 1.58. Received IV fluids; creatinine improved to 1.35. Creatinine today = 1.57. Encourage oral fluid intake. Avoid potential nephrotoxins. Creatinine remains stable at around 1.5 Advised to drink more fluid-remains stable Check PRP today -remains sobia HYPOTHYROIDISM TSH = 22. Patient indicates that she is not taking levothyroxine on regular basis. Continue prescribed dose of 88 mcg daily on empty stomach. Recheck TSH in about 6 weeks. BIPOLAR ILLNESS [place] level 1.3 at time of admission. Prescribed diazepam 5 mg daily; unclear whether or not she is taking it as directed. Son indicates that patient has required inpatient psychiatric care in the past. Psychiatry consulted-appreciate input. Diazepam tapered and discontinued. Continue fluoxetine. Discussed with the psychiatrist Her lithium will be on hold until she sees psychiatrist as an outpatient- already has an appointment WEIGHT LOSS May be multifactorial. Nutrition consulted Has been followed regularly by Urology for her urothelial carcinoma. Appetite improved. Continue Megace.and encourage more food intake PULMONARY MASS-Ruled Out by CT Ill-defined 2.4 cm density right lung noted on chest x-ray, but not confirmed by CT chest. AMBULATORY DYSFUNCTION / ? VERTIGO Worsening ambulatory dysfunction for > 1 year. Seen by Neurology and ENT. 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 [place] to have multifactorial dysequilibrium. Continue PT, OT. Will be discharged to [facility] for rehab when a bed is available VTE PROPHYLAXIS SQ heparin. Ambulate. DISPOSITION Evaluated by PT/OT. Not safe to be discharged home. Anticipate need for skilled care or rehab-likely to go to [facility] when accepted Internal Medicine follow-up with Dr. Blake. Vital Signs: Date Time Temp Pulse Resp B/P (MAP) Pulse Ox O2 Delivery O2 Flow Rate FiO2 03/17/18 08:00 Room Air 03/17/18 07:35 36.7 68 16 116/65 (82) 99 Room Air 03/17/18 00:00 99 Room Air 03/16/18 23:06 37.0 70 16 110/67 (81) 99 Room Air 03/16/18 20:00 99 Room Air 03/16/18 16:00 Room Air 03/16/18 14:33 36.6 69 18 121/65 (83) 99 Room Air
[2018-03-17 15:10] VITALS: BP 107/65; PULSE 75; TEMP 37.3; O2SAT 98
[2018-03-17 20:00] VITALS: O2SAT 99
[2018-03-18] VITALS: O2SAT 99
[2018-03-18] MEDS: ACETAMINOPHEN SOLN 650MG/20.3 ML UDC PO PRN ×3 (02:08→19:08)
[2018-03-18] MEDS: LEVOTHYROXINE 88 MCG TAB PO SCH (06:44)
[2018-03-18 07:23] VITALS: BP 114/60; PULSE 75; TEMP 36.7; O2SAT 100
[2018-03-18] MEDS: BOOST VANILLA PO SCH (08:12)
[2018-03-18] MEDS: ASPIRIN 81 MG ECTAB PO SCH (08:13)
[2018-03-18] MEDS: MEGESTROL ACETATE SUSP 400 MG/10 ML UDC PO SCH (08:14)
[2018-03-18] MEDS: FLUOXETINE HCL 10 MG CAP PO SCH (08:14)
[2018-03-18] MEDS: NICOTINE 14 MG/24 HR TDSY TD SCH (08:14)
[2018-03-18] MEDS: HEPARIN SOD 5000 UNIT/0.5 ML CARP SQ SCH ×2 (08:20→20:37)
--- NOTE | 2018-03-18 13:20 | Progress Note ---
Internal Med Progress Note Date of Service: Mar 18, 2018. Provider Documentation: SUBJECTIVE: The patient was seen and examined in telemetry unit She was admitted with change in mental status She has been feeling a lot better since admission Remains stable at rest Awaiting placement -wants to be discharged soon. Denies any symptoms Awaiting to be transferred 03/18-Remains stable and even better today Denies any complaints wants to be discharged OBJECTIVE: Vital Signs-as noted below Exam: General-no distress at rest Eyes-normal ENT-normal Neck-supple Lungs-clear to auscultate bilaterally Heart-S1-S2 regular, no murmur appreciated Abdomen-benign, soft, nontender Extremities-no edema Neuro-alert, awake, pleasantly confused No focal sensory and/or motor deficit Lab data as noted below. ASSESSMENT & PLAN: ALTERED MENTAL STATUS History obtained from family indicates progressive confusion over some time. They are concerned that she is not getting adequate nutrition or hydration. They are also concerned that she is not taking her medications as instructed. Underlying bipolar disorder. Altered mental status could be metabolic encephalopathy or due to other factors. Head CT negative for acute event or apparent malignancy. TSH elevated- probably not taking levothyroxine properly. Macrocytosis- B 12 and folate normal. UA negative. Her mental status is at baseline and she will be going to [facility] when accepted Clinically stable -awaiting placement No new symptoms and wants to be discharged Onychomycosis She has painfully elongated toenails that were debrided manually today at bedside. I explained that she should be followed as on outpatient for her fungal toenails. Please have her follow up with my office in 9 weeks at [phone]. Denies any issue with the nail CKD IV CKD IV; s/p nephrectomy. Serum creatinine at time of admission was 1.58. Received IV fluids; creatinine improved to 1.35. Creatinine today = 1.57. Encourage oral fluid intake. Avoid potential nephrotoxins. Creatinine remains stable at around 1.5 Advised to drink more fluid-remains stable Check PRP today -remains sobia HYPOTHYROIDISM TSH = 22. Patient indicates that she is not taking levothyroxine on regular basis. Continue prescribed dose of 88 mcg daily on empty stomach. Recheck TSH in about 6 weeks. BIPOLAR ILLNESS [place] level 1.3 at time of admission. Prescribed diazepam 5 mg daily; unclear whether or not she is taking it as directed. Son indicates that patient has required inpatient psychiatric care in the past. Psychiatry consulted-appreciate input. Diazepam tapered and discontinued. Continue fluoxetine. Discussed with the psychiatrist Her lithium will be on hold until she sees psychiatrist as an outpatient- already has an appointment No acute symptoms WEIGHT LOSS May be multifactorial. Nutrition consulted Has been followed regularly by Urology for her urothelial carcinoma. Appetite improved. Continue Megace.and encourage more food intake PULMONARY MASS-Ruled Out by CT Ill-defined 2.4 cm density right lung noted on chest x-ray, but not confirmed by CT chest. AMBULATORY DYSFUNCTION / ? VERTIGO Worsening ambulatory dysfunction for > 1 year. Seen by Neurology and ENT. 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 [place] to have multifactorial dysequilibrium. Continue PT, OT. Will be discharged to [facility] for rehab when a bed is available VTE PROPHYLAXIS SQ heparin. Ambulate. DISPOSITION Evaluated by PT/OT. Not safe to be discharged home. Anticipate need for skilled care or rehab-likely to go to [facility] when accepted Internal Medicine follow-up with Dr. Blake. Awaiting placement Vital Signs: Date Time Temp Pulse Resp B/P (MAP) Pulse Ox O2 Delivery O2 Flow Rate FiO2 03/18/18 08:32 Room Air 03/18/18 07:23 36.7 75 16 114/60 (78) 100 Room Air 03/18/18 00:00 99 Room Air 03/17/18 20:00 99 Room Air 03/17/18 16:00 Room Air 03/17/18 15:10 37.3 75 18 107/65 (79) 98 Room Air
[2018-03-18 15:49] VITALS: BP 105/69; PULSE 67; TEMP 36.7; O2SAT 99
[2018-03-19 00:10] VITALS: BP 119/74; PULSE 73; TEMP 37; O2SAT 100
[2018-03-19] MEDS: LEVOTHYROXINE 88 MCG TAB PO SCH (06:17)
[2018-03-19] MEDS: ACETAMINOPHEN SOLN 650MG/20.3 ML UDC PO PRN ×2 (06:18→16:39)
[2018-03-19 07:03] VITALS: BP 109/64; PULSE 76; TEMP 36.7; O2SAT 99
[2018-03-19] MEDS: ASPIRIN 81 MG ECTAB PO SCH (10:54)
[2018-03-19] MEDS: BOOST VANILLA PO SCH (10:54)
[2018-03-19] MEDS: FLUOXETINE HCL 10 MG CAP PO SCH (10:55)
[2018-03-19] MEDS: MEGESTROL ACETATE SUSP 400 MG/10 ML UDC PO SCH (10:55)
[2018-03-19] MEDS: NICOTINE 14 MG/24 HR TDSY TD SCH (10:55)
[2018-03-19] MEDS: HEPARIN SOD 5000 UNIT/0.5 ML CARP SQ SCH ×2 (10:56→20:59)
[2018-03-19 15:27] VITALS: BP 142/77; PULSE 72; TEMP 36.6; O2SAT 99
--- NOTE | 2018-03-19 17:36 | Progress Note ---
Subjective Date of Service: Mar 19, 2018. Subjective Pt evaluation today including: conversation w/ patient, physical exam, lab review, review of studies, review of inpatient medication list Saw/examined the patient in room 405 She is thin/cachectic, slightly confused getting out of bed even when told not to; intermittently follows commands Eager to leave the hospital Problem List Medical Problems: (1) Acute on chronic renal failure Status: Acute (2) Altered mental status Status: Acute (3) COPD exacerbation Status: Acute (4) Dehydration Status: Acute (5) Dehydration Status: Acute (6) Fall Status: Acute (7) Falls Status: Acute (8) Frequent falls Status: Acute (9) Head injury Status: Acute (10) Hypoxia Status: Acute (11) UTI (urinary tract infection) Status: Acute (12) Weakness Status: Acute (13) Weakness Status: Acute Review of Systems Constitutional: No fever, No chills Respiratory: No cough, No sputum, No shortness of breath Cardiac: No chest pain Heme: No abnormal bleeding/bruising Medications Current Inpatient Medications Medications (Trade) Dose Ordered Sig/Kim Route Start Time Stop Time Status Last Admin Dose Admin Heparin Sodium (Porcine) (Heparin Sq 5000 Unit/0.5ml) 5,000 unit Q12 SQ 03/06/18 21:00 04/05/18 20:59 03/19/18 10:56 5,000 UNIT Al Hydrox/Mg Hydrox/Simethicone (Maalox Max Susp) 15 ml Q4H PRN PO 03/06/18 15:00 04/05/18 14:59 Magnesium Hydroxide (Milk Of Magnesia Susp) 30 ml Q12H PRN PO 03/06/18 15:00 04/05/18 14:59 Ondansetron HCl (Zofran Inj) 4 mg Q6H PRN IV 03/06/18 15:00 04/05/18 14:59 Enteral Nutritional Formula (Boost) 1 can DAILY PO 03/06/18 16:00 04/05/18 15:59 03/19/18 10:54 1 CAN Aspirin (Ecotrin Tab) 81 mg DAILY PO 03/07/18 09:00 04/06/18 08:59 03/19/18 10:54 81 MG Fluoxetine HCl (Prozac Cap) 10 mg DAILY PO 03/07/18 09:00 04/06/18 08:59 03/19/18 10:55 10 MG Lamotrigine (Lamictal Tab) 50 mg DAILY PO 03/07/18 09:00 04/06/18 08:59 03/19/18 10:54 50 MG Levothyroxine Sodium (Synthroid Tab) 88 mcg DAILYBB PO 03/07/18 06:30 04/06/18 06:59 03/19/18 06:17 88 MCG Megestrol Acetate (Megace Susp) 400 mg DAILY PO 03/07/18 09:00 04/06/18 08:59 03/19/18 10:55 400 MG Nicotine (Nicoderm Cq 14MG Patch) 1 patch QAM TD 03/08/18 09:00 04/07/18 08:59 03/19/18 10:55 1 PATCH Miscellaneous (Remove Nicoderm Patch) 1 ea HS N/A 03/07/18 21:00 04/06/18 20:59 03/18/18 20:37 1 EA Acetaminophen (Tylenol Soln) 650 mg Q6H PRN PO 03/11/18 15:15 04/10/18 15:14 03/19/18 16:39 650 MG Objective Vital Signs Date Time Temp Pulse Resp B/P (MAP) Pulse Ox O2 Delivery O2 Flow Rate FiO2 03/19/18 15:27 36.6 72 16 142/77 (98) 99 Room Air 03/19/18 14:47 Room Air 03/19/18 07:03 36.7 76 20 109/64 (79) 99 Room Air 03/19/18 00:10 37.0 73 18 119/74 (89) 100 Room Air 03/19/18 00:00 Room Air Physical Exam General Appearance: + cachetic, + thin ENT: hearing grossly normal, + pertinent finding (poor dentition) Respiratory/Chest: lungs clear, normal breath sounds, no respiratory distress, no accessory muscle use Cardiovascular: regular rate, rhythm Neurologic/Psychiatric: alert, normal mood/affect, + disoriented Assessment and Plan Delirium on Dementia Failure to Thrive 03/19 - patient with likely underlying dementia, with delirium - not following commands at all times - she is thin and cachectic - plan to continue boost BID with meals; continue Megace - clinically, likely at her baseline - plan to d/c to SNF when able, case management aware History obtained from family indicates progressive confusion over some time. They are concerned that she is not getting adequate nutrition or hydration. They are also concerned that she is not taking her medications as instructed. Underlying bipolar disorder. Altered mental status could be metabolic encephalopathy or due to other factors. Head CT negative for acute event or apparent malignancy. TSH elevated- probably not taking levothyroxine properly. Macrocytosis- B 12 and folate normal. UA negative. Her mental status is at baseline and she will be going to [facility] when accepted Clinically stable -awaiting placement No new symptoms and wants to be discharged Onychomycosis She has painfully elongated toenails that were debrided manually today at bedside. I explained that she should be followed as on outpatient for her fungal toenails. Please have her follow up with my office in 9 weeks at [phone]. Denies any issue with the nail CKD IV CKD IV; s/p nephrectomy. Serum creatinine at time of admission was 1.58. Received IV fluids; creatinine improved to 1.35. Creatinine today = 1.57. Encourage oral fluid intake. Avoid potential nephrotoxins. Creatinine remains stable at around 1.5 Advised to drink more fluid-remains stable Check PRP today -remains sobia HYPOTHYROIDISM TSH = 22. Patient indicates that she is not taking levothyroxine on regular basis. Continue prescribed dose of 88 mcg daily on empty stomach. Recheck TSH in about 6 weeks. BIPOLAR ILLNESS [place] level 1.3 at time of admission. Prescribed diazepam 5 mg daily; unclear whether or not she is taking it as directed. Son indicates that patient has required inpatient psychiatric care in the past. Psychiatry consulted-appreciate input. Diazepam tapered and discontinued. Continue fluoxetine. Discussed with the psychiatrist Her lithium will be on hold until she sees psychiatrist as an outpatient- already has an appointment No acute symptoms WEIGHT LOSS May be multifactorial. Nutrition consulted Has been followed regularly by Urology for her urothelial carcinoma. Appetite improved. Continue Megace.and encourage more food intake PULMONARY MASS-Ruled Out by CT Ill-defined 2.4 cm density right lung noted on chest x-ray, but not confirmed by CT chest. AMBULATORY DYSFUNCTION / ? VERTIGO Worsening ambulatory dysfunction for > 1 year. Seen by Neurology and ENT. 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 [place] to have multifactorial dysequilibrium. Continue PT, OT. Will be discharged to [facility] for rehab when a bed is available VTE PROPHYLAXIS SQ heparin. Ambulate. DISPOSITION Evaluated by PT/OT. Not safe to be discharged home. Anticipate need for skilled care or rehab-likely to go to [facility] when accepted Internal Medicine follow-up with Dr. Blake. Awaiting placement
[2018-03-19 23:11] VITALS: BP 133/69; PULSE 68; TEMP 36.8; O2SAT 98
[2018-03-20] MEDS: LEVOTHYROXINE 88 MCG TAB PO SCH (06:32)
[2018-03-20 07:41] VITALS: BP 117/65; PULSE 79; TEMP 36.7; O2SAT 98
[2018-03-20] MEDS: MEGESTROL ACETATE SUSP 400 MG/10 ML UDC PO SCH (08:51)
[2018-03-20] MEDS: BOOST VANILLA PO SCH (08:51)
[2018-03-20] MEDS: ASPIRIN 81 MG ECTAB PO SCH (08:51)
[2018-03-20] MEDS: FLUOXETINE HCL 10 MG CAP PO SCH (08:52)
[2018-03-20] MEDS: NICOTINE 14 MG/24 HR TDSY TD SCH (08:52)
[2018-03-20] MEDS: HEPARIN SOD 5000 UNIT/0.5 ML CARP SQ SCH ×2 (08:55→21:49)
[2018-03-20] MEDS: ACETAMINOPHEN SOLN 650MG/20.3 ML UDC PO PRN ×2 (08:57→19:43)
--- NOTE | 2018-03-20 12:36 | Progress Note ---
Subjective Date of Service: Mar 20, 2018. Subjective Pt evaluation today including: conversation w/ patient, physical exam, lab review, review of studies, review of inpatient medication list Saw/examined the patient in room 405 She's doing well, very eager to get out of the hospital +muscle weakness persists Problem List Medical Problems: (1) Acute on chronic renal failure Status: Acute (2) Altered mental status Status: Acute (3) COPD exacerbation Status: Acute (4) Dehydration Status: Acute (5) Dehydration Status: Acute (6) Fall Status: Acute (7) Falls Status: Acute (8) Frequent falls Status: Acute (9) Head injury Status: Acute (10) Hypoxia Status: Acute (11) UTI (urinary tract infection) Status: Acute (12) Weakness Status: Acute (13) Weakness Status: Acute Review of Systems Constitutional: + weakness, No fever, No chills Respiratory: No shortness of breath Cardiac: No chest pain Medications Current Inpatient Medications Medications (Trade) Dose Ordered Sig/Kim Route Start Time Stop Time Status Last Admin Dose Admin Heparin Sodium (Porcine) (Heparin Sq 5000 Unit/0.5ml) 5,000 unit Q12 SQ 03/06/18 21:00 04/05/18 20:59 03/20/18 08:55 5,000 UNIT Al Hydrox/Mg Hydrox/Simethicone (Maalox Max Susp) 15 ml Q4H PRN PO 03/06/18 15:00 04/05/18 14:59 Magnesium Hydroxide (Milk Of Magnesia Susp) 30 ml Q12H PRN PO 03/06/18 15:00 04/05/18 14:59 Ondansetron HCl (Zofran Inj) 4 mg Q6H PRN IV 03/06/18 15:00 04/05/18 14:59 Enteral Nutritional Formula (Boost) 1 can DAILY PO 03/06/18 16:00 04/05/18 15:59 03/20/18 08:51 1 CAN Aspirin (Ecotrin Tab) 81 mg DAILY PO 03/07/18 09:00 04/06/18 08:59 03/20/18 08:51 81 MG Fluoxetine HCl (Prozac Cap) 10 mg DAILY PO 03/07/18 09:00 04/06/18 08:59 03/20/18 08:52 10 MG Lamotrigine (Lamictal Tab) 50 mg DAILY PO 03/07/18 09:00 04/06/18 08:59 03/20/18 08:51 50 MG Levothyroxine Sodium (Synthroid Tab) 88 mcg DAILYBB PO 03/07/18 06:30 04/06/18 06:59 03/20/18 06:32 88 MCG Megestrol Acetate (Megace Susp) 400 mg DAILY PO 03/07/18 09:00 04/06/18 08:59 03/20/18 08:51 400 MG Nicotine (Nicoderm Cq 14MG Patch) 1 patch QAM TD 03/08/18 09:00 04/07/18 08:59 03/20/18 08:52 1 PATCH Miscellaneous (Remove Nicoderm Patch) 1 ea HS N/A 03/07/18 21:00 04/06/18 20:59 03/19/18 20:55 1 EA Acetaminophen (Tylenol Soln) 650 mg Q6H PRN PO 03/11/18 15:15 04/10/18 15:14 03/20/18 08:57 650 MG Objective Vital Signs Date Time Temp Pulse Resp B/P (MAP) Pulse Ox O2 Delivery O2 Flow Rate FiO2 03/20/18 07:41 36.7 79 18 117/65 (82) 98 03/20/18 00:00 Room Air 03/19/18 23:11 36.8 68 18 133/69 (90) 98 Room Air 03/19/18 19:50 Room Air 03/19/18 16:00 Room Air 03/19/18 15:27 36.6 72 16 142/77 (98) 99 Room Air 03/19/18 14:47 Room Air Physical Exam General Appearance: no apparent distress, + cachetic, + thin Respiratory/Chest: chest non-tender, lungs clear, normal breath sounds, no respiratory distress, no accessory muscle use Neurologic/Psychiatric: + motor weakness Assessment and Plan Delirium on Dementia Failure to Thrive 03/20 - she is more awake/alert today - questioning why she has to stay in the hospital; but agreeable to go to rehab - continue boost and Megace 03/19 - patient with likely underlying dementia, with delirium - not following commands at all times - she is thin and cachectic - plan to continue boost BID with meals; continue Megace - clinically, likely at her baseline - plan to d/c to SNF when able, case management aware History obtained from family indicates progressive confusion over some time. They are concerned that she is not getting adequate nutrition or hydration. They are also concerned that she is not taking her medications as instructed. Underlying bipolar disorder. Altered mental status could be metabolic encephalopathy or due to other factors. Head CT negative for acute event or apparent malignancy. TSH elevated- probably not taking levothyroxine properly. Macrocytosis- B 12 and folate normal. UA negative. Her mental status is at baseline and she will be going to [facility] when accepted Clinically stable -awaiting placement No new symptoms and wants to be discharged Onychomycosis She has painfully elongated toenails that were debrided manually today at bedside. I explained that she should be followed as on outpatient for her fungal toenails. Please have her follow up with my office in 9 weeks at [phone]. Denies any issue with the nail CKD IV CKD IV; s/p nephrectomy. Serum creatinine at time of admission was 1.58. Received IV fluids; creatinine improved to 1.35. Creatinine today = 1.57. Encourage oral fluid intake. Avoid potential nephrotoxins. Creatinine remains stable at around 1.5 Advised to drink more fluid-remains stable Check PRP today -remains sobia HYPOTHYROIDISM TSH = 22. Patient indicates that she is not taking levothyroxine on regular basis. Continue prescribed dose of 88 mcg daily on empty stomach. Recheck TSH in about 6 weeks. BIPOLAR ILLNESS [place] level 1.3 at time of admission. Prescribed diazepam 5 mg daily; unclear whether or not she is taking it as directed. Son indicates that patient has required inpatient psychiatric care in the past. Psychiatry consulted-appreciate input. Diazepam tapered and discontinued. Continue fluoxetine. Discussed with the psychiatrist Her lithium will be on hold until she sees psychiatrist as an outpatient- already has an appointment No acute symptoms WEIGHT LOSS May be multifactorial. Nutrition consulted Has been followed regularly by Urology for her urothelial carcinoma. Appetite improved. Continue Megace.and encourage more food intake PULMONARY MASS-Ruled Out by CT Ill-defined 2.4 cm density right lung noted on chest x-ray, but not confirmed by CT chest. AMBULATORY DYSFUNCTION / ? VERTIGO Worsening ambulatory dysfunction for > 1 year. Seen by Neurology and ENT. 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 [place] to have multifactorial dysequilibrium. Continue PT, OT. Will be discharged to [facility] for rehab when a bed is available VTE PROPHYLAXIS SQ heparin. Ambulate. DISPOSITION Evaluated by PT/OT. Not safe to be discharged home. Anticipate need for skilled care or rehab-likely to go to [facility] when accepted Internal Medicine follow-up with Dr. Blake. Awaiting placement
[2018-03-20 15:18] VITALS: BP 117/72; PULSE 72; TEMP 36.6; O2SAT 96
[2018-03-20 23:24] VITALS: BP 112/68; PULSE 62; TEMP 36.8; O2SAT 100
[2018-03-21] MEDS: ACETAMINOPHEN SOLN 650MG/20.3 ML UDC PO PRN ×2 (06:45→20:43)
[2018-03-21] MEDS: LEVOTHYROXINE 88 MCG TAB PO SCH (06:45)
[2018-03-21 07:58] VITALS: BP 113/69; PULSE 80; TEMP 36.6; O2SAT 100
[2018-03-21] MEDS: MEGESTROL ACETATE SUSP 400 MG/10 ML UDC PO SCH (08:00)
[2018-03-21] MEDS: ASPIRIN 81 MG ECTAB PO SCH (08:04)
[2018-03-21] MEDS: BOOST VANILLA PO SCH (08:04)
[2018-03-21] MEDS: NICOTINE 14 MG/24 HR TDSY TD SCH (08:05)
[2018-03-21] MEDS: FLUOXETINE HCL 10 MG CAP PO SCH (08:05)
[2018-03-21] MEDS: HEPARIN SOD 5000 UNIT/0.5 ML CARP SQ SCH ×2 (08:08→20:46)
[2018-03-21 16:00] VITALS: BP 129/77; PULSE 72; TEMP 36.8; O2SAT 100
--- NOTE | 2018-03-21 17:01 | Progress Note ---
Subjective Date of Service: Mar 21, 2018. Subjective Pt evaluation today including: conversation w/ patient, physical exam, lab review, review of studies, review of inpatient medication list Saw/examined the patient in room 405 She's doing well, not as confused as the past few days, conversing well Eager to get out of the hospital Problem List Medical Problems: (1) Acute on chronic renal failure Status: Acute (2) Altered mental status Status: Acute (3) COPD exacerbation Status: Acute (4) Dehydration Status: Acute (5) Dehydration Status: Acute (6) Fall Status: Acute (7) Falls Status: Acute (8) Frequent falls Status: Acute (9) Head injury Status: Acute (10) Hypoxia Status: Acute (11) UTI (urinary tract infection) Status: Acute (12) Weakness Status: Acute (13) Weakness Status: Acute Review of Systems Constitutional: No weakness Respiratory: No shortness of breath Cardiac: No chest pain Medications Current Inpatient Medications Medications (Trade) Dose Ordered Sig/Kim Route Start Time Stop Time Status Last Admin Dose Admin Heparin Sodium (Porcine) (Heparin Sq 5000 Unit/0.5ml) 5,000 unit Q12 SQ 03/06/18 21:00 04/05/18 20:59 03/21/18 08:08 5,000 UNIT Al Hydrox/Mg Hydrox/Simethicone (Maalox Max Susp) 15 ml Q4H PRN PO 03/06/18 15:00 04/05/18 14:59 Magnesium Hydroxide (Milk Of Magnesia Susp) 30 ml Q12H PRN PO 03/06/18 15:00 04/05/18 14:59 Ondansetron HCl (Zofran Inj) 4 mg Q6H PRN IV 03/06/18 15:00 04/05/18 14:59 Enteral Nutritional Formula (Boost) 1 can DAILY PO 03/06/18 16:00 04/05/18 15:59 03/21/18 08:04 1 CAN Aspirin (Ecotrin Tab) 81 mg DAILY PO 03/07/18 09:00 04/06/18 08:59 03/21/18 08:04 81 MG Fluoxetine HCl (Prozac Cap) 10 mg DAILY PO 03/07/18 09:00 04/06/18 08:59 03/21/18 08:05 10 MG Lamotrigine (Lamictal Tab) 50 mg DAILY PO 03/07/18 09:00 04/06/18 08:59 03/21/18 08:04 50 MG Levothyroxine Sodium (Synthroid Tab) 88 mcg DAILYBB PO 03/07/18 06:30 04/06/18 06:59 03/21/18 06:45 88 MCG Megestrol Acetate (Megace Susp) 400 mg DAILY PO 03/07/18 09:00 04/06/18 08:59 03/20/18 08:51 400 MG Nicotine (Nicoderm Cq 14MG Patch) 1 patch QAM TD 03/08/18 09:00 04/07/18 08:59 03/21/18 08:05 1 PATCH Miscellaneous (Remove Nicoderm Patch) 1 ea HS N/A 03/07/18 21:00 04/06/18 20:59 03/20/18 21:00 1 EA Acetaminophen (Tylenol Soln) 650 mg Q6H PRN PO 03/11/18 15:15 04/10/18 15:14 03/21/18 06:45 650 MG Objective Vital Signs Date Time Temp Pulse Resp B/P (MAP) Pulse Ox O2 Delivery O2 Flow Rate FiO2 03/21/18 11:55 Room Air 03/21/18 07:58 36.6 80 18 113/69 (84) 100 03/21/18 00:00 Room Air 03/20/18 23:24 36.8 62 20 112/68 (83) 100 Room Air 03/20/18 16:00 Room Air 03/20/18 15:18 36.6 72 18 117/72 (87) 96 Physical Exam General Appearance: no apparent distress, + cachetic, + thin Respiratory/Chest: lungs clear, normal breath sounds, no respiratory distress, no accessory muscle use Cardiovascular: regular rate, rhythm, no edema, no murmur Assessment and Plan Delirium on Dementia Failure to Thrive 03/21 - plan to try to d/c to rehab/SNF when able - encouraged more PO intake, including boost 03/20 - she is more awake/alert today - questioning why she has to stay in the hospital; but agreeable to go to rehab - continue boost and Megace 03/19 - patient with likely underlying dementia, with delirium - not following commands at all times - she is thin and cachectic - plan to continue boost BID with meals; continue Megace - clinically, likely at her baseline - plan to d/c to SNF when able, case management aware History obtained from family indicates progressive confusion over some time. They are concerned that she is not getting adequate nutrition or hydration. They are also concerned that she is not taking her medications as instructed. Underlying bipolar disorder. Altered mental status could be metabolic encephalopathy or due to other factors. Head CT negative for acute event or apparent malignancy. TSH elevated- probably not taking levothyroxine properly. Macrocytosis- B 12 and folate normal. UA negative. Her mental status is at baseline and she will be going to [facility] when accepted Clinically stable -awaiting placement No new symptoms and wants to be discharged Onychomycosis She has painfully elongated toenails that were debrided manually today at bedside. I explained that she should be followed as on outpatient for her fungal toenails. Please have her follow up with my office in 9 weeks at [phone]. Denies any issue with the nail CKD IV CKD IV; s/p nephrectomy. Serum creatinine at time of admission was 1.58. Received IV fluids; creatinine improved to 1.35. Creatinine today = 1.57. Encourage oral fluid intake. Avoid potential nephrotoxins. Creatinine remains stable at around 1.5 Advised to drink more fluid-remains stable Check PRP today -remains sobia HYPOTHYROIDISM TSH = 22. Patient indicates that she is not taking levothyroxine on regular basis. Continue prescribed dose of 88 mcg daily on empty stomach. Recheck TSH in about 6 weeks. BIPOLAR ILLNESS [place] level 1.3 at time of admission. Prescribed diazepam 5 mg daily; unclear whether or not she is taking it as directed. Son indicates that patient has required inpatient psychiatric care in the past. Psychiatry consulted-appreciate input. Diazepam tapered and discontinued. Continue fluoxetine. Discussed with the psychiatrist Her lithium will be on hold until she sees psychiatrist as an outpatient- already has an appointment No acute symptoms WEIGHT LOSS May be multifactorial. Nutrition consulted Has been followed regularly by Urology for her urothelial carcinoma. Appetite improved. Continue Megace.and encourage more food intake PULMONARY MASS-Ruled Out by CT Ill-defined 2.4 cm density right lung noted on chest x-ray, but not confirmed by CT chest. AMBULATORY DYSFUNCTION / ? VERTIGO Worsening ambulatory dysfunction for > 1 year. Seen by Neurology and ENT. 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 [place] to have multifactorial dysequilibrium. Continue PT, OT. Will be discharged to [facility] for rehab when a bed is available VTE PROPHYLAXIS SQ heparin. Ambulate. DISPOSITION Evaluated by PT/OT. Not safe to be discharged home. Anticipate need for skilled care or rehab-likely to go to [facility] when accepted Internal Medicine follow-up with Dr. Blake. Awaiting placement
[2018-03-21 23:46] VITALS: BP 118/67; PULSE 61; TEMP 36.8; O2SAT 100
[2018-03-22] MEDS: ACETAMINOPHEN SOLN 650MG/20.3 ML UDC PO PRN ×3 (03:09→20:59)
[2018-03-22 06:01] LABS: HEMATOCRIT 39.9 % (37-47); HEMOGLOBIN 12.8 g/dL (12.0-16.0); MEAN CELL VOLUME 103.6 fL (80-100); MEAN CORPUSCULAR HEMOGLOBIN 33.2 pg (25-34); MEAN CORPUSCULAR HGB CONC 32.1 g/dl (32-36); MEAN PLATELET VOLUME 9.4 fL (7.4-10.4); PLATELET COUNT 306 K/uL (130-400); RED CELL DISTRIBUTION WIDTH CV 13.6 % (11.5-14.5); RED CELL DISTRIBUTION WIDTH SD 51.5 fL (36.4-46.3); WHITE BLOOD COUNT 5.52 K/uL (4.8-10.8)
[2018-03-22 06:31] LABS: CALCIUM 9.9 mg/dl (8.5-10.1); CREATININE 1.37 mg/dl (0.60-1.20); POTASSIUM 4.5 mmol/L (3.5-5.1)
[2018-03-22] MEDS: LEVOTHYROXINE 88 MCG TAB PO SCH (06:39)
[2018-03-22 07:05] VITALS: BP 120/74; PULSE 68; TEMP 36.4; O2SAT 96
[2018-03-22] MEDS: BOOST VANILLA PO SCH (08:00)
[2018-03-22] MEDS: ASPIRIN 81 MG ECTAB PO SCH (08:15)
[2018-03-22] MEDS: FLUOXETINE HCL 10 MG CAP PO SCH (08:15)
[2018-03-22] MEDS: NICOTINE 14 MG/24 HR TDSY TD SCH (08:16)
[2018-03-22] MEDS: HEPARIN SOD 5000 UNIT/0.5 ML CARP SQ SCH ×2 (09:01→20:58)
[2018-03-22] MEDS: MEGESTROL ACETATE SUSP 400 MG/10 ML UDC PO SCH (09:03)
--- NOTE | 2018-03-22 13:13 | Progress Note ---
Subjective Date of Service: Mar 22, 2018. Subjective Pt evaluation today including: conversation w/ patient, physical exam, lab review, review of studies, review of inpatient medication list Saw/examined the patient in room 405 she's doing well, no problems/issues to note today knows about the plan for d/c on Sunday and is agreeable states she is trying to eat more to get her strength up Problem List Medical Problems: (1) Acute on chronic renal failure Status: Acute (2) Altered mental status Status: Acute (3) COPD exacerbation Status: Acute (4) Dehydration Status: Acute (5) Dehydration Status: Acute (6) Fall Status: Acute (7) Falls Status: Acute (8) Frequent falls Status: Acute (9) Head injury Status: Acute (10) Hypoxia Status: Acute (11) UTI (urinary tract infection) Status: Acute (12) Weakness Status: Acute (13) Weakness Status: Acute Medications Current Inpatient Medications Medications (Trade) Dose Ordered Sig/Kim Route Start Time Stop Time Status Last Admin Dose Admin Heparin Sodium (Porcine) (Heparin Sq 5000 Unit/0.5ml) 5,000 unit Q12 SQ 03/06/18 21:00 04/05/18 20:59 03/22/18 09:01 5,000 UNIT Al Hydrox/Mg Hydrox/Simethicone (Maalox Max Susp) 15 ml Q4H PRN PO 03/06/18 15:00 04/05/18 14:59 Magnesium Hydroxide (Milk Of Magnesia Susp) 30 ml Q12H PRN PO 03/06/18 15:00 04/05/18 14:59 Ondansetron HCl (Zofran Inj) 4 mg Q6H PRN IV 03/06/18 15:00 04/05/18 14:59 Enteral Nutritional Formula (Boost) 1 can DAILY PO 03/06/18 16:00 04/05/18 15:59 03/21/18 08:04 1 CAN Aspirin (Ecotrin Tab) 81 mg DAILY PO 03/07/18 09:00 04/06/18 08:59 03/22/18 08:15 81 MG Fluoxetine HCl (Prozac Cap) 10 mg DAILY PO 03/07/18 09:00 04/06/18 08:59 03/22/18 08:15 10 MG Lamotrigine (Lamictal Tab) 50 mg DAILY PO 03/07/18 09:00 04/06/18 08:59 03/22/18 08:15 50 MG Levothyroxine Sodium (Synthroid Tab) 88 mcg DAILYBB PO 03/07/18 06:30 04/06/18 06:59 03/22/18 06:39 88 MCG Megestrol Acetate (Megace Susp) 400 mg DAILY PO 03/07/18 09:00 04/06/18 08:59 03/20/18 08:51 400 MG Nicotine (Nicoderm Cq 14MG Patch) 1 patch QAM TD 03/08/18 09:00 04/07/18 08:59 03/22/18 08:16 1 PATCH Miscellaneous (Remove Nicoderm Patch) 1 ea HS N/A 03/07/18 21:00 04/06/18 20:59 03/21/18 20:43 1 EA Acetaminophen (Tylenol Soln) 650 mg Q6H PRN PO 03/11/18 15:15 04/10/18 15:14 03/22/18 09:14 650 MG Objective Vital Signs Date Time Temp Pulse Resp B/P (MAP) Pulse Ox O2 Delivery O2 Flow Rate FiO2 03/22/18 07:05 36.4 68 18 120/74 (89) 96 Room Air 03/22/18 01:00 Room Air 03/21/18 23:46 36.8 61 20 118/67 (84) 100 Room Air 03/21/18 16:00 Room Air 03/21/18 16:00 36.8 72 18 129/77 (94) 100 Room Air Physical Exam General Appearance: no apparent distress, + cachetic, + thin Respiratory/Chest: no respiratory distress, no accessory muscle use Extremities: normal inspection, no pedal edema Neurologic/Psychiatric: no motor/sensory deficits, alert, normal mood/affect Laboratory Results Last 24 Hours Test 03/22/18 05:44 White Blood Count 5.52 K/uL Red Blood Count 3.85 M/uL Hemoglobin 12.8 g/dL Hematocrit 39.9 % Mean Corpuscular Volume 103.6 fL Mean Corpuscular Hemoglobin 33.2 pg Mean Corpuscular Hemoglobin Concent 32.1 g/dl RDW Standard Deviation 51.5 fL RDW Coefficient of Variation 13.6 % Platelet Count 306 K/uL Mean Platelet Volume 9.4 fL Sodium Level 139 mmol/L Potassium Level 4.5 mmol/L Chloride Level 113 mmol/L Carbon Dioxide Level 22 mmol/L Anion Gap 4.0 mmol/L Blood Urea Nitrogen 51 mg/dl Creatinine 1.37 mg/dl Est Creatinine Clear Calc Drug Dose 23.1 ml/min Estimated GFR () 42.7 Estimated GFR (Non- 36.9 BUN/Creatinine Ratio 37.1 Random Glucose 94 mg/dl Calcium Level 9.9 mg/dl Assessment and Plan Delirium on Dementia Failure to Thrive 03/22 - patient is doing well, no change in clinical picture - she is awake/alert and oriented x3 currently - encouraged PO intake and boost intake 03/21 - plan to try to d/c to rehab/SNF when able - encouraged more PO intake, including boost 03/20 - she is more awake/alert today - questioning why she has to stay in the hospital; but agreeable to go to rehab - continue boost and Megace 03/19 - patient with likely underlying dementia, with delirium - not following commands at all times - she is thin and cachectic - plan to continue boost BID with meals; continue Megace - clinically, likely at her baseline - plan to d/c to SNF when able, case management aware History obtained from family indicates progressive confusion over some time. They are concerned that she is not getting adequate nutrition or hydration. They are also concerned that she is not taking her medications as instructed. Underlying bipolar disorder. Altered mental status could be metabolic encephalopathy or due to other factors. Head CT negative for acute event or apparent malignancy. TSH elevated- probably not taking levothyroxine properly. Macrocytosis- B 12 and folate normal. UA negative. Her mental status is at baseline and she will be going to [facility] when accepted Clinically stable -awaiting placement No new symptoms and wants to be discharged Onychomycosis She has painfully elongated toenails that were debrided manually today at bedside. I explained that she should be followed as on outpatient for her fungal toenails. Please have her follow up with my office in 9 weeks at [phone]. Denies any issue with the nail CKD IV CKD IV; s/p nephrectomy. Serum creatinine at time of admission was 1.58. Received IV fluids; creatinine improved to 1.35. Creatinine today = 1.57. Encourage oral fluid intake. Avoid potential nephrotoxins. Creatinine remains stable at around 1.5 Advised to drink more fluid-remains stable Check PRP today -remains sobia HYPOTHYROIDISM TSH = 22. Patient indicates that she is not taking levothyroxine on regular basis. Continue prescribed dose of 88 mcg daily on empty stomach. Recheck TSH in about 6 weeks. BIPOLAR ILLNESS [place] level 1.3 at time of admission. Prescribed diazepam 5 mg daily; unclear whether or not she is taking it as directed. Son indicates that patient has required inpatient psychiatric care in the past. Psychiatry consulted-appreciate input. Diazepam tapered and discontinued. Continue fluoxetine. Discussed with the psychiatrist Her lithium will be on hold until she sees psychiatrist as an outpatient- already has an appointment No acute symptoms WEIGHT LOSS May be multifactorial. Nutrition consulted Has been followed regularly by Urology for her urothelial carcinoma. Appetite improved. Continue Megace.and encourage more food intake PULMONARY MASS-Ruled Out by CT Ill-defined 2.4 cm density right lung noted on chest x-ray, but not confirmed by CT chest. AMBULATORY DYSFUNCTION / ? VERTIGO Worsening ambulatory dysfunction for > 1 year. Seen by Neurology and ENT. 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 [place] to have multifactorial dysequilibrium. Continue PT, OT. Will be discharged to [facility] for rehab when a bed is available VTE PROPHYLAXIS SQ heparin. Ambulate. DISPOSITION Evaluated by PT/OT. Not safe to be discharged home. Anticipate need for skilled care or rehab-likely to go to [facility] when accepted Internal Medicine follow-up with Dr. Blake. Awaiting placement
[2018-03-22 14:45] VITALS: BP 114/62; PULSE 75; TEMP 37.2; O2SAT 99
[2018-03-23 00:02] VITALS: BP 112/68; PULSE 64; TEMP 36.9; O2SAT 98
[2018-03-23] MEDS: LEVOTHYROXINE 88 MCG TAB PO SCH (05:39)
[2018-03-23 07:50] VITALS: BP 124/77; PULSE 75; TEMP 36.9; O2SAT 99
[2018-03-23] MEDS: MEGESTROL ACETATE SUSP 400 MG/10 ML UDC PO SCH (08:00)
[2018-03-23] MEDS: FLUOXETINE HCL 10 MG CAP PO SCH (08:14)
[2018-03-23] MEDS: BOOST VANILLA PO SCH (08:14)
[2018-03-23] MEDS: ASPIRIN 81 MG ECTAB PO SCH (08:14)
[2018-03-23] MEDS: NICOTINE 14 MG/24 HR TDSY TD SCH (08:14)
[2018-03-23] MEDS: HEPARIN SOD 5000 UNIT/0.5 ML CARP SQ SCH ×2 (08:22→21:40)
[2018-03-23] MEDS: ACETAMINOPHEN SOLN 650MG/20.3 ML UDC PO PRN (10:49)
--- NOTE | 2018-03-23 11:00 | Progress Note ---
Subjective Date of Service: Mar 23, 2018. Subjective Pt evaluation today including: conversation w/ patient, physical exam, lab review, review of studies, review of inpatient medication list Saw/examined the patient in room 405 She's doing okay, no problems/issues to note today wants to find out how she can get her clothes before going to SNF on Sunday Problem List Medical Problems: (1) Acute on chronic renal failure Status: Acute (2) Altered mental status Status: Acute (3) COPD exacerbation Status: Acute (4) Dehydration Status: Acute (5) Dehydration Status: Acute (6) Fall Status: Acute (7) Falls Status: Acute (8) Frequent falls Status: Acute (9) Head injury Status: Acute (10) Hypoxia Status: Acute (11) UTI (urinary tract infection) Status: Acute (12) Weakness Status: Acute (13) Weakness Status: Acute Review of Systems Constitutional: + weakness, No fever, No chills Respiratory: No cough, No sputum, No shortness of breath Cardiac: No chest pain, No edema, No palpitations Medications Current Inpatient Medications Medications (Trade) Dose Ordered Sig/Kim Route Start Time Stop Time Status Last Admin Dose Admin Heparin Sodium (Porcine) (Heparin Sq 5000 Unit/0.5ml) 5,000 unit Q12 SQ 03/06/18 21:00 04/05/18 20:59 03/23/18 08:22 5,000 UNIT Al Hydrox/Mg Hydrox/Simethicone (Maalox Max Susp) 15 ml Q4H PRN PO 03/06/18 15:00 04/05/18 14:59 Magnesium Hydroxide (Milk Of Magnesia Susp) 30 ml Q12H PRN PO 03/06/18 15:00 04/05/18 14:59 Ondansetron HCl (Zofran Inj) 4 mg Q6H PRN IV 03/06/18 15:00 04/05/18 14:59 Enteral Nutritional Formula (Boost) 1 can DAILY PO 03/06/18 16:00 04/05/18 15:59 03/23/18 08:14 1 CAN Aspirin (Ecotrin Tab) 81 mg DAILY PO 03/07/18 09:00 04/06/18 08:59 03/23/18 08:14 81 MG Fluoxetine HCl (Prozac Cap) 10 mg DAILY PO 03/07/18 09:00 04/06/18 08:59 03/23/18 08:14 10 MG Lamotrigine (Lamictal Tab) 50 mg DAILY PO 03/07/18 09:00 04/06/18 08:59 03/23/18 08:14 50 MG Levothyroxine Sodium (Synthroid Tab) 88 mcg DAILYBB PO 03/07/18 06:30 04/06/18 06:59 03/23/18 05:39 88 MCG Megestrol Acetate (Megace Susp) 400 mg DAILY PO 03/07/18 09:00 04/06/18 08:59 03/20/18 08:51 400 MG Nicotine (Nicoderm Cq 14MG Patch) 1 patch QAM TD 03/08/18 09:00 04/07/18 08:59 03/23/18 08:14 1 PATCH Miscellaneous (Remove Nicoderm Patch) 1 ea HS N/A 03/07/18 21:00 04/06/18 20:59 03/22/18 20:55 1 EA Acetaminophen (Tylenol Soln) 650 mg Q6H PRN PO 03/11/18 15:15 04/10/18 15:14 03/22/18 20:59 650 MG Objective Vital Signs Date Time Temp Pulse Resp B/P (MAP) Pulse Ox O2 Delivery O2 Flow Rate FiO2 03/23/18 08:58 Room Air 03/23/18 07:50 36.9 75 18 124/77 (93) 99 Room Air 03/23/18 00:02 36.9 64 20 112/68 (83) 98 Room Air 03/23/18 00:00 Room Air 03/22/18 16:00 Room Air 03/22/18 14:45 37.2 75 20 114/62 (79) 99 Physical Exam General Appearance: no apparent distress, + cachetic, + thin Respiratory/Chest: no respiratory distress, no accessory muscle use Cardiovascular: regular rate, rhythm, no edema, no murmur Extremities: normal inspection, no pedal edema Neurologic/Psychiatric: no motor/sensory deficits, alert, normal mood/affect Assessment and Plan Delirium on Dementia Failure to Thrive 03/23 - She's doing well, no problems/issues - will check CBC/PRP in AM 03/22 - patient is doing well, no change in clinical picture - she is awake/alert and oriented x3 currently - encouraged PO intake and boost intake 03/21 - plan to try to d/c to rehab/SNF when able - encouraged more PO intake, including boost 03/20 - she is more awake/alert today - questioning why she has to stay in the hospital; but agreeable to go to rehab - continue boost and Megace 03/19 - patient with likely underlying dementia, with delirium - not following commands at all times - she is thin and cachectic - plan to continue boost BID with meals; continue Megace - clinically, likely at her baseline - plan to d/c to SNF when able, case management aware History obtained from family indicates progressive confusion over some time. They are concerned that she is not getting adequate nutrition or hydration. They are also concerned that she is not taking her medications as instructed. Underlying bipolar disorder. Altered mental status could be metabolic encephalopathy or due to other factors. Head CT negative for acute event or apparent malignancy. TSH elevated- probably not taking levothyroxine properly. Macrocytosis- B 12 and folate normal. UA negative. Her mental status is at baseline and she will be going to [facility] when accepted Clinically stable -awaiting placement No new symptoms and wants to be discharged Onychomycosis She has painfully elongated toenails that were debrided manually today at bedside. I explained that she should be followed as on outpatient for her fungal toenails. Please have her follow up with my office in 9 weeks at [phone]. Denies any issue with the nail CKD IV CKD IV; s/p nephrectomy. Serum creatinine at time of admission was 1.58. Received IV fluids; creatinine improved to 1.35. Creatinine today = 1.57. Encourage oral fluid intake. Avoid potential nephrotoxins. Creatinine remains stable at around 1.5 Advised to drink more fluid-remains stable Check PRP today -remains sobia HYPOTHYROIDISM TSH = 22. Patient indicates that she is not taking levothyroxine on regular basis. Continue prescribed dose of 88 mcg daily on empty stomach. Recheck TSH in about 6 weeks. BIPOLAR ILLNESS [place] level 1.3 at time of admission. Prescribed diazepam 5 mg daily; unclear whether or not she is taking it as directed. Son indicates that patient has required inpatient psychiatric care in the past. Psychiatry consulted-appreciate input. Diazepam tapered and discontinued. Continue fluoxetine. Discussed with the psychiatrist Her lithium will be on hold until she sees psychiatrist as an outpatient- already has an appointment No acute symptoms WEIGHT LOSS May be multifactorial. Nutrition consulted Has been followed regularly by Urology for her urothelial carcinoma. Appetite improved. Continue Megace.and encourage more food intake PULMONARY MASS-Ruled Out by CT Ill-defined 2.4 cm density right lung noted on chest x-ray, but not confirmed by CT chest. AMBULATORY DYSFUNCTION / ? VERTIGO Worsening ambulatory dysfunction for > 1 year. Seen by Neurology and ENT. 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 [place] to have multifactorial dysequilibrium. Continue PT, OT. Will be discharged to [facility] for rehab when a bed is available VTE PROPHYLAXIS SQ heparin. Ambulate. DISPOSITION Evaluated by PT/OT. Not safe to be discharged home. Anticipate need for skilled care or rehab-likely to go to [facility] when accepted Internal Medicine follow-up with Dr. Blake. Awaiting placement
[2018-03-23] MEDS ORDERED: NURSING DECISION MEDICATION ORDER SCH (11:45)
[2018-03-23 14:37] VITALS: BP 116/69; PULSE 72; TEMP 37.2; O2SAT 100
[2018-03-23] MEDS: ACETAMINOPHEN 325 MG TAB PO PRN (21:39)
[2018-03-23 23:16] VITALS: BP 118/74; PULSE 69; TEMP 36.9; O2SAT 100
[2018-03-24 05:54] LABS: HEMOGLOBIN 13.4 g/dL (12.0-16.0); MEAN CELL VOLUME 104.2 fL (80-100); MEAN CORPUSCULAR HEMOGLOBIN 33.3 pg (25-34); MEAN CORPUSCULAR HGB CONC 31.9 g/dl (32-36); MEAN PLATELET VOLUME 9.6 fL (7.4-10.4); PLATELET COUNT 298 K/uL (130-400); RED CELL DISTRIBUTION WIDTH CV 13.6 % (11.5-14.5); RED CELL DISTRIBUTION WIDTH SD 52.2 fL (36.4-46.3); WHITE BLOOD COUNT 7.75 K/uL (4.8-10.8)
[2018-03-24] MEDS: LEVOTHYROXINE 88 MCG TAB PO SCH (06:14)
[2018-03-24 06:24] LABS: CALCIUM 10.4 mg/dl (8.5-10.1); CREATININE 1.2 mg/dl (0.60-1.20); POTASSIUM 4.9 mmol/L (3.5-5.1)
[2018-03-24 07:34] VITALS: BP 103/67; PULSE 78; TEMP 36.7; O2SAT 97
[2018-03-24] MEDS: BOOST VANILLA PO SCH (08:48)
[2018-03-24] MEDS: MEGESTROL ACETATE 40 MG TAB PO SCH (08:49)
[2018-03-24] MEDS: NICOTINE 14 MG/24 HR TDSY TD SCH (08:50)
[2018-03-24] MEDS: ASPIRIN 81 MG ECTAB PO SCH (08:50)
[2018-03-24] MEDS: FLUOXETINE HCL 10 MG CAP PO SCH (08:51)
[2018-03-24] MEDS: HEPARIN SOD 5000 UNIT/0.5 ML CARP SQ SCH ×2 (08:52→22:10)
--- NOTE | 2018-03-24 11:11 | Progress Note ---
Subjective Date of Service: Mar 24, 2018. Subjective Pt evaluation today including: conversation w/ patient, physical exam, lab review, review of studies, review of inpatient medication list Saw/examined the patient in room 405 She's doing well, +weakness Problem List Medical Problems: (1) Acute on chronic renal failure Status: Acute (2) Altered mental status Status: Acute (3) COPD exacerbation Status: Acute (4) Dehydration Status: Acute (5) Dehydration Status: Acute (6) Fall Status: Acute (7) Falls Status: Acute (8) Frequent falls Status: Acute (9) Head injury Status: Acute (10) Hypoxia Status: Acute (11) UTI (urinary tract infection) Status: Acute (12) Weakness Status: Acute (13) Weakness Status: Acute Review of Systems Constitutional: No fever, No chills Respiratory: No shortness of breath Cardiac: No chest pain Abdomen: No pain, No nausea, No vomiting, No diarrhea Musculoskeletal: + see HPI, + joint pain Medications Current Inpatient Medications Medications (Trade) Dose Ordered Sig/Kim Route Start Time Stop Time Status Last Admin Dose Admin Heparin Sodium (Porcine) (Heparin Sq 5000 Unit/0.5ml) 5,000 unit Q12 SQ 03/06/18 21:00 04/05/18 20:59 03/24/18 08:52 5,000 UNIT Al Hydrox/Mg Hydrox/Simethicone (Maalox Max Susp) 15 ml Q4H PRN PO 03/06/18 15:00 04/05/18 14:59 Magnesium Hydroxide (Milk Of Magnesia Susp) 30 ml Q12H PRN PO 03/06/18 15:00 04/05/18 14:59 Ondansetron HCl (Zofran Inj) 4 mg Q6H PRN IV 03/06/18 15:00 04/05/18 14:59 Enteral Nutritional Formula (Boost) 1 can DAILY PO 03/06/18 16:00 04/05/18 15:59 03/23/18 08:14 1 CAN Aspirin (Ecotrin Tab) 81 mg DAILY PO 03/07/18 09:00 04/06/18 08:59 03/24/18 08:50 81 MG Fluoxetine HCl (Prozac Cap) 10 mg DAILY PO 03/07/18 09:00 04/06/18 08:59 03/24/18 08:51 10 MG Lamotrigine (Lamictal Tab) 50 mg DAILY PO 03/07/18 09:00 04/06/18 08:59 03/24/18 08:50 50 MG Levothyroxine Sodium (Synthroid Tab) 88 mcg DAILYBB PO 03/07/18 06:30 04/06/18 06:59 03/24/18 06:14 88 MCG Nicotine (Nicoderm Cq 14MG Patch) 1 patch QAM TD 03/08/18 09:00 04/07/18 08:59 03/24/18 08:50 1 PATCH Miscellaneous (Remove Nicoderm Patch) 1 ea HS N/A 03/07/18 21:00 04/06/18 20:59 03/23/18 21:40 1 EA Megestrol Acetate (Megace Tab) 400 mg DAILY PO 03/24/18 08:00 04/23/18 07:59 03/24/18 08:49 400 MG Acetaminophen (Tylenol Tab) 650 mg Q6H PRN PO 03/23/18 11:45 04/22/18 11:44 03/23/18 21:39 650 MG Objective Vital Signs Date Time Temp Pulse Resp B/P (MAP) Pulse Ox O2 Delivery O2 Flow Rate FiO2 03/24/18 10:43 Room Air 03/24/18 07:34 36.7 78 20 103/67 (79) 97 03/24/18 00:00 Room Air 03/23/18 23:16 36.9 69 18 118/74 (89) 100 Room Air 03/23/18 20:00 Room Air 03/23/18 16:45 Room Air 03/23/18 14:37 37.2 72 18 116/69 (85) 100 Physical Exam General Appearance: no apparent distress, + cachetic, + thin Respiratory/Chest: lungs clear, normal breath sounds, no respiratory distress, no accessory muscle use Cardiovascular: regular rate, rhythm, no edema, no murmur Laboratory Results Last 24 Hours Test 03/24/18 05:28 White Blood Count 7.75 K/uL Red Blood Count 4.03 M/uL Hemoglobin 13.4 g/dL Hematocrit 42.0 % Mean Corpuscular Volume 104.2 fL Mean Corpuscular Hemoglobin 33.3 pg Mean Corpuscular Hemoglobin Concent 31.9 g/dl RDW Standard Deviation 52.2 fL RDW Coefficient of Variation 13.6 % Platelet Count 298 K/uL Mean Platelet Volume 9.6 fL Sodium Level 139 mmol/L Potassium Level 4.9 mmol/L Chloride Level 111 mmol/L Carbon Dioxide Level 22 mmol/L Anion Gap 6.0 mmol/L Blood Urea Nitrogen 54 mg/dl Creatinine 1.20 mg/dl Est Creatinine Clear Calc Drug Dose 26.4 ml/min Estimated GFR () 50.1 Estimated GFR (Non- 43.3 BUN/Creatinine Ratio 44.6 Random Glucose 100 mg/dl Calcium Level 10.4 mg/dl Assessment and Plan Delirium on Dementia Failure to Thrive 03/24 - CBC and PRP reviewed, kidney function improving - plan to d/c in AM 03/23 - She's doing well, no problems/issues - will check CBC/PRP in AM 03/22 - patient is doing well, no change in clinical picture - she is awake/alert and oriented x3 currently - encouraged PO intake and boost intake 03/21 - plan to try to d/c to rehab/SNF when able - encouraged more PO intake, including boost 03/20 - she is more awake/alert today - questioning why she has to stay in the hospital; but agreeable to go to rehab - continue boost and Megace 03/19 - patient with likely underlying dementia, with delirium - not following commands at all times - she is thin and cachectic - plan to continue boost BID with meals; continue Megace - clinically, likely at her baseline - plan to d/c to SNF when able, case management aware History obtained from family indicates progressive confusion over some time. They are concerned that she is not getting adequate nutrition or hydration. They are also concerned that she is not taking her medications as instructed. Underlying bipolar disorder. Altered mental status could be metabolic encephalopathy or due to other factors. Head CT negative for acute event or apparent malignancy. TSH elevated- probably not taking levothyroxine properly. Macrocytosis- B 12 and folate normal. UA negative. Her mental status is at baseline and she will be going to [facility] when accepted Clinically stable -awaiting placement No new symptoms and wants to be discharged Onychomycosis She has painfully elongated toenails that were debrided manually today at bedside. I explained that she should be followed as on outpatient for her fungal toenails. Please have her follow up with my office in 9 weeks at [phone]. Denies any issue with the nail CKD IV CKD IV; s/p nephrectomy. Serum creatinine at time of admission was 1.58. Received IV fluids; creatinine improved to 1.35. Creatinine today = 1.57. Encourage oral fluid intake. Avoid potential nephrotoxins. Creatinine remains stable at around 1.5 Advised to drink more fluid-remains stable Check PRP today -remains sobia HYPOTHYROIDISM TSH = 22. Patient indicates that she is not taking levothyroxine on regular basis. Continue prescribed dose of 88 mcg daily on empty stomach. Recheck TSH in about 6 weeks. BIPOLAR ILLNESS [place] level 1.3 at time of admission. Prescribed diazepam 5 mg daily; unclear whether or not she is taking it as directed. Son indicates that patient has required inpatient psychiatric care in the past. Psychiatry consulted-appreciate input. Diazepam tapered and discontinued. Continue fluoxetine. Discussed with the psychiatrist Her lithium will be on hold until she sees psychiatrist as an outpatient- already has an appointment No acute symptoms WEIGHT LOSS May be multifactorial. Nutrition consulted Has been followed regularly by Urology for her urothelial carcinoma. Appetite improved. Continue Megace.and encourage more food intake PULMONARY MASS-Ruled Out by CT Ill-defined 2.4 cm density right lung noted on chest x-ray, but not confirmed by CT chest. AMBULATORY DYSFUNCTION / ? VERTIGO Worsening ambulatory dysfunction for > 1 year. Seen by Neurology and ENT. 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 [place] to have multifactorial dysequilibrium. Continue PT, OT. Will be discharged to [facility] for rehab when a bed is available VTE PROPHYLAXIS SQ heparin. Ambulate. DISPOSITION Evaluated by PT/OT. Not safe to be discharged home. Anticipate need for skilled care or rehab-likely to go to [facility] when accepted Internal Medicine follow-up with Dr. Blake. Awaiting placement
[2018-03-24 14:58] VITALS: BP 135/74; PULSE 81; TEMP 36.7; O2SAT 100
[2018-03-24 23:06] VITALS: BP 122/74; PULSE 92; TEMP 36.9; O2SAT 96
[2018-03-24] MEDS: ACETAMINOPHEN 325 MG TAB PO PRN (23:56)
[2018-03-25] MEDS: LEVOTHYROXINE 88 MCG TAB PO SCH (06:10)
[2018-03-25 07:44] VITALS: BP 121/72; PULSE 77; TEMP 36.7; O2SAT 100
[2018-03-25 08:00] VITALS: O2SAT 100
[2018-03-25] MEDS: FLUOXETINE HCL 10 MG CAP PO SCH (08:07)
[2018-03-25] MEDS: MEGESTROL ACETATE 40 MG TAB PO SCH (08:07)
[2018-03-25] MEDS: BOOST VANILLA PO SCH (08:07)
[2018-03-25] MEDS: ASPIRIN 81 MG ECTAB PO SCH (08:08)
[2018-03-25] MEDS: NICOTINE 14 MG/24 HR TDSY TD SCH (08:08)
[2018-03-25] MEDS: HEPARIN SOD 5000 UNIT/0.5 ML CARP SQ SCH ×2 (08:13→21:00)
[2018-03-25] MEDS: ACETAMINOPHEN 325 MG TAB PO PRN ×2 (08:20→19:10)
--- NOTE | 2018-03-25 09:35 | Progress Note ---
Subjective Date of Service: Mar 25, 2018. Subjective Pt evaluation today including: conversation w/ patient, physical exam, lab review, review of studies, review of inpatient medication list Saw/examined the patient in room 405 No problems/issues to note, she states that overnight, her shoulder was hurting so she didn't get enough sleep; she is tired, but also eager get of the hospital Problem List Medical Problems: (1) Acute on chronic renal failure Status: Acute (2) Altered mental status Status: Acute (3) COPD exacerbation Status: Acute (4) Dehydration Status: Acute (5) Dehydration Status: Acute (6) Fall Status: Acute (7) Falls Status: Acute (8) Frequent falls Status: Acute (9) Head injury Status: Acute (10) Hypoxia Status: Acute (11) UTI (urinary tract infection) Status: Acute (12) Weakness Status: Acute (13) Weakness Status: Acute Review of Systems Respiratory: No cough, No sputum, No shortness of breath Cardiac: No chest pain Musculoskeletal: + joint pain Medications Current Inpatient Medications Medications (Trade) Dose Ordered Sig/Kim Route Start Time Stop Time Status Last Admin Dose Admin Heparin Sodium (Porcine) (Heparin Sq 5000 Unit/0.5ml) 5,000 unit Q12 SQ 03/06/18 21:00 04/05/18 20:59 03/25/18 08:13 5,000 UNIT Al Hydrox/Mg Hydrox/Simethicone (Maalox Max Susp) 15 ml Q4H PRN PO 03/06/18 15:00 04/05/18 14:59 Magnesium Hydroxide (Milk Of Magnesia Susp) 30 ml Q12H PRN PO 03/06/18 15:00 04/05/18 14:59 Ondansetron HCl (Zofran Inj) 4 mg Q6H PRN IV 03/06/18 15:00 04/05/18 14:59 Enteral Nutritional Formula (Boost) 1 can DAILY PO 03/06/18 16:00 04/05/18 15:59 03/25/18 08:07 1 CAN Aspirin (Ecotrin Tab) 81 mg DAILY PO 03/07/18 09:00 04/06/18 08:59 03/25/18 08:08 81 MG Fluoxetine HCl (Prozac Cap) 10 mg DAILY PO 03/07/18 09:00 04/06/18 08:59 03/25/18 08:07 10 MG Lamotrigine (Lamictal Tab) 50 mg DAILY PO 03/07/18 09:00 04/06/18 08:59 03/25/18 08:07 50 MG Levothyroxine Sodium (Synthroid Tab) 88 mcg DAILYBB PO 03/07/18 06:30 04/06/18 06:59 03/25/18 06:10 88 MCG Nicotine (Nicoderm Cq 14MG Patch) 1 patch QAM TD 03/08/18 09:00 04/07/18 08:59 03/25/18 08:08 1 PATCH Miscellaneous (Remove Nicoderm Patch) 1 ea HS N/A 03/07/18 21:00 04/06/18 20:59 03/24/18 22:10 1 EA Megestrol Acetate (Megace Tab) 400 mg DAILY PO 03/24/18 08:00 04/23/18 07:59 03/25/18 08:07 400 MG Acetaminophen (Tylenol Tab) 650 mg Q6H PRN PO 03/23/18 11:45 04/22/18 11:44 03/25/18 08:20 650 MG Objective Vital Signs Date Time Temp Pulse Resp B/P (MAP) Pulse Ox O2 Delivery O2 Flow Rate FiO2 03/25/18 08:00 100 Room Air 03/25/18 07:44 36.7 77 16 121/72 (88) 100 Room Air 03/25/18 00:00 Room Air 03/24/18 23:06 36.9 92 18 122/74 (90) 96 Room Air 03/24/18 20:00 Room Air 03/24/18 15:47 Room Air 03/24/18 14:58 36.7 81 20 135/74 (94) 100 03/24/18 10:43 Room Air Physical Exam General Appearance: no apparent distress, + cachetic, + thin Respiratory/Chest: no respiratory distress, no accessory muscle use Cardiovascular: regular rate, rhythm Neurologic/Psychiatric: no motor/sensory deficits, alert, normal mood/affect Assessment and Plan Delirium on Dementia Failure to Thrive 03/25 - plan to d/c to SNF - outpatient psychiatry follow-up regarding [place] - TSH in 4-5 weeks as outpatient 03/24 - CBC and PRP reviewed, kidney function improving - plan to d/c in AM 03/23 - She's doing well, no problems/issues - will check CBC/PRP in AM 03/22 - patient is doing well, no change in clinical picture - she is awake/alert and oriented x3 currently - encouraged PO intake and boost intake 03/21 - plan to try to d/c to rehab/SNF when able - encouraged more PO intake, including boost 03/20 - she is more awake/alert today - questioning why she has to stay in the hospital; but agreeable to go to rehab - continue boost and Megace 03/19 - patient with likely underlying dementia, with delirium - not following commands at all times - she is thin and cachectic - plan to continue boost BID with meals; continue Megace - clinically, likely at her baseline - plan to d/c to SNF when able, case management aware History obtained from family indicates progressive confusion over some time. They are concerned that she is not getting adequate nutrition or hydration. They are also concerned that she is not taking her medications as instructed. Underlying bipolar disorder. Altered mental status could be metabolic encephalopathy or due to other factors. Head CT negative for acute event or apparent malignancy. TSH elevated- probably not taking levothyroxine properly. Macrocytosis- B 12 and folate normal. UA negative. Her mental status is at baseline and she will be going to [facility] when accepted Clinically stable -awaiting placement No new symptoms and wants to be discharged Onychomycosis She has painfully elongated toenails that were debrided manually today at bedside. I explained that she should be followed as on outpatient for her fungal toenails. Please have her follow up with my office in 9 weeks at [phone]. Denies any issue with the nail CKD IV CKD IV; s/p nephrectomy. Serum creatinine at time of admission was 1.58. Received IV fluids; creatinine improved to 1.35. Creatinine today = 1.57. Encourage oral fluid intake. Avoid potential nephrotoxins. Creatinine remains stable at around 1.5 Advised to drink more fluid-remains stable Check PRP today -remains sobia HYPOTHYROIDISM TSH = 22. Patient indicates that she is not taking levothyroxine on regular basis. Continue prescribed dose of 88 mcg daily on empty stomach. Recheck TSH in about 6 weeks. BIPOLAR ILLNESS [place] level 1.3 at time of admission. Prescribed diazepam 5 mg daily; unclear whether or not she is taking it as directed. Son indicates that patient has required inpatient psychiatric care in the past. Psychiatry consulted-appreciate input. Diazepam tapered and discontinued. Continue fluoxetine. Discussed with the psychiatrist Her lithium will be on hold until she sees psychiatrist as an outpatient- already has an appointment No acute symptoms WEIGHT LOSS May be multifactorial. Nutrition consulted Has been followed regularly by Urology for her urothelial carcinoma. Appetite improved. Continue Megace.and encourage more food intake PULMONARY MASS-Ruled Out by CT Ill-defined 2.4 cm density right lung noted on chest x-ray, but not confirmed by CT chest. AMBULATORY DYSFUNCTION / ? VERTIGO Worsening ambulatory dysfunction for > 1 year. Seen by Neurology and ENT. 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 [place] to have multifactorial dysequilibrium. Continue PT, OT. Will be discharged to [facility] for rehab when a bed is available VTE PROPHYLAXIS SQ heparin. Ambulate. DISPOSITION Evaluated by PT/OT. Not safe to be discharged home. Anticipate need for skilled care or rehab-likely to go to [facility] when accepted Internal Medicine follow-up with Dr. Blake. Awaiting placement
[2018-03-25] MEDS ORDERED: MULT-589 PO (09:43)
[2018-03-25] MEDS ORDERED: MGC40 PO (09:43)
[2018-03-25] MEDS ORDERED: Boost PO (09:43)
--- NOTE | 2018-03-25 09:52 | Discharge Instructions ---
Discharge Instructions Date of Service Mar 25, 2018. Admission Reason for Admission: Altered Mental Status Discharge Discharge Diagnosis / Problem: Delirium on Dementia, Ambulatory Dysfunction/ Weakness Discharge Goals Goal(s): Decrease discomfort, Improve function, Diagnostic testing, Therapeutic intervention Activity Recommendations Activity Limitations: resume your previous activity . Instructions / Follow-Up Instructions / Follow-Up Please follow-up with your primary care doctor and your psychiatrist after your stay at the nursing facility Discuss with psychiatry about restarting [place] Drink boost daily and take multivitamins daily Current Hospital Diet Patient's current hospital diet: Regular Diet Discharge Diet Recommended Diet: Regular Diet Pending Studies Studies pending at discharge: no Medical Emergencies . Who to Call and When: Medical Emergencies: If at any time you feel your situation is an emergency, please call 911 immediately. . Non-Emergent Contact Non-Emergency issues call your: Primary Care Provider, Specialist (psychiatry) . . "Provider Documentation" section prepared by Errol Betancourt. .
--- NOTE | 2018-03-25 09:56 | Discharge Summary ---
Discharge Summary Date of Service Mar 25, 2018. Discharge Summary Admission Date: Mar 06, 2018 at 14:54 Discharge Date: Mar 25, 2018 Discharge Disposition: [facility] facility Principal Diagnosis: Delirium on Dementia Failure to Thrive Onychomycosis CKD IV HYPOTHYROIDISM BIPOLAR ILLNESS WEIGHT LOSS AMBULATORY DYSFUNCTION / ? VERTIGO Medication Reconciliation New Medications: Multivitamins (Daily Anshul) 1 Tab Tab 1 TAB PO DAILY for 30 Days, #30 TABS Megestrol Acetate (Megace) 40 Mg Tab 400 MG PO DAILY for 30 Days, #30 TAB [Boost] () 1 CAN LIQD 1 CAN PO DAILY for 30 Days, #30 CAN Continued Medications: Acetaminophen (Tylenol) 325 Mg Tab 650 MG PO Q4 PRN for Headache or Pain, TAB Aspirin (Aspirin Ec) 81 Mg Tab 81 MG PO DAILY Biotin (Biotin) 1 Mg Cap 1 MG PO DAILY Calcium Carbonate-Cholecalcife (Caltrate 600+D) 1 Tab Tab 1 TAB PO DAILY Diazepam (Diazepam) 5 Mg Tab 5 MG PO DAILY Fluoxetine Hcl (Pmdd) (Prozac) 10 Mg Cap 1 CAP PO DAILY for 30 Days, #30 CAP 2 Refills Gabapentin (Gabapentin) 100 Mg Cap 1 CAP PO HS Lamotrigine (Lamictal) 100 Mg Tab 0.5 TAB PO DAILY for 30 Days, #15 TAB 1 Refill Levothyroxine Sodium (Levothyroxine Sodium) 88 Mcg Tab 88 MCG PO DAILY, #30 Discontinued Medications: Platinum Carbonate (Platinum Carbonate) 150 Mg Cap 150 MG PO BID Megestrol Acetate (Megestrol Acetate) 40 Mg/1 Ml Susp 10 ML PO DAILY Admission Information HPI (per Admitting provider): Pt is 77 y/o F with PMH CKD III, hypothyroidism, bipolar disorder, GERD, COPD, urothelial carcinoma of left kidney S/P left nephrectomy, bladder CA, bladder incontinence, chronic dizziness and gait disturbance presented to ER for increased confusion. Patient was transported to ER via EMS from dentist office. It is reported that patient went to the dentist office and thought she was at the psychiatrist's office and was confused on date and place. Patient reports that she got her days mixed up and thought today was , as she has an appointment with her psychiatrist . Patient knows she is in the ER, thinks she is at [facility]. Granddaughter reports has noticed gradual increased confusion with patient over the last couple months however increased confusion the past 2 weeks. Granddaughter reports visited patient last week and patient was noted to be drinking water out of a bowl. She reports this has noticed patient has been increase confused about time and place and forgetting people's names. Patient admits that this past week she was confused about a restaurant name and granddaughter confirms this. Patient with chronic decreased appetite for approximately 1-1/2 years. Granddaughter reports noticed that it started after patient's . Patient use to drink Ensure however stopped. Patient lives alone. Granddaughter reports that her father (patient's son) goes to patient's house every weekend and takes her grocery shopping. Granddaughter reports that patient has not been able to be taking care of herself and has not been bathing regularly or making herself meals. Granddaughter thinks the patient does her own medications. Granddaughter reports that there was discussion with patient in the past of her moving in with her son, and also discussion about patient receiving assistance in her own home but the patient has denied that previously. Granddaughter reports the patient has not been eating, and only eats when family members are around. She reports brought patient 2 subs yesterday which patient states she ate. Patient states that 2 days ago she ate a sub that the granddaughter brought however granddaughter states did not bring her anything 2 days ago and patient is confused on this. Daughter reports has noticed patient with weight loss which has been going on for some time she feels may have worsened over the past couple of weeks. Patient notes reviewed and patient's weight was 43.7 kg on 01/21/18. Hear in ER weight reported as 47.2 kg. Patient with history of chronic dizziness and gait disturbance and history of falls. Has seen Dr. Redd-neurology. EMG on 10/24/17: Normal, slight polyneuropathy. Patient unable to have MRI. CT scan head 10/08/17: No acute abnormality. Mild global volume loss and findings most commonly associated with chronic small vessel ischemic changes. Intracranial atherosclerotic disease. Patient reports falling a couple of times in the past week. Patient states sometimes she feels dizzy and falls and sometimes her legs feel weak causing her to fall. Denies hitting head or syncope. Denies any known injuries or current complaints of pain. Patient with history of bipolar disorder. She reports she has been taking her medications. Reports chronic sadness and intermittent anxiety. Denies any increase. Denies suicidal ideations. Reports follows with psychiatrist once monthly. Denies any recent med changes. Patient denies recent illnesses. Denies fever/chills, diaphoresis, N/V/D/C, JOHNSON, vision changes, neck pain, CP, SOB, orthopnea, palpitations, cough, sore throat , choking, otalgia, rhinorrhea, abdominal pain, extremity edema, rashes, urinary symptoms. Physical Exam (per Admitting): General Appearance: + thin, + pertinent finding (Chronic ill-appearing, in no apparent distress. Disheveled) Head: normocephalic, atraumatic Eyes: normal inspection, PERRL, EOMI, sclerae normal ENT: hearing grossly normal, + pertinent finding (Dry mucous membranes.) Neck: supple, no JVD, trachea midline Respiratory/Chest: lungs clear, normal breath sounds, no respiratory distress, + pertinent finding (Port noted left upper chest) Cardiovascular: regular rate, rhythm, no murmur, normal peripheral pulses Abdomen/GI: normal bowel sounds, non tender, soft Extremities/Musculoskelatal: no calf tenderness, no pedal edema, non-tender , + pertinent finding (Pedal pushes and pulls intact.) Neurologic/Psych: alert, + pertinent finding (Oriented to person, knows month and year and now states today is Sunday. She is in the ER thinks it is [facility]. Patient cooperative. Somewhat of flat affect.) Skin: warm/dry, + pertinent finding (Positive scattered ecchymosis and abrasion to right arm. Patient hands and feet and face dirty. Long fingernails and toenails noted) Hospital Course Delirium on Dementia Failure to Thrive 03/25 - plan to d/c to SNF - outpatient psychiatry follow-up regarding Platinum - TSH in 4-5 weeks as outpatient 03/24 - CBC and PRP reviewed, kidney function improving - plan to d/c in AM 03/23 - She's doing well, no problems/issues - will check CBC/PRP in AM 03/22 - patient is doing well, no change in clinical picture - she is awake/alert and oriented x3 currently - encouraged PO intake and boost intake 03/21 - plan to try to d/c to rehab/SNF when able - encouraged more PO intake, including boost 03/20 - she is more awake/alert today - questioning why she has to stay in the hospital; but agreeable to go to rehab - continue boost and Megace 03/19 - patient with likely underlying dementia, with delirium - not following commands at all times - she is thin and cachectic - plan to continue boost BID with meals; continue Megace - clinically, likely at her baseline - plan to d/c to SNF when able, case management aware History obtained from family indicates progressive confusion over some time. They are concerned that she is not getting adequate nutrition or hydration. They are also concerned that she is not taking her medications as instructed. Underlying bipolar disorder. Altered mental status could be metabolic encephalopathy or due to other factors. Head CT negative for acute event or apparent malignancy. TSH elevated- probably not taking levothyroxine properly. Macrocytosis- B 12 and folate normal. UA negative. Her mental status is at baseline and she will be going to [facility] when accepted Clinically stable -awaiting placement No new symptoms and wants to be discharged Onychomycosis She has painfully elongated toenails that were debrided manually today at bedside. I explained that she should be followed as on outpatient for her fungal toenails. Please have her follow up with my office in 9 weeks at [phone]. Denies any issue with the nail CKD IV CKD IV; s/p nephrectomy. Serum creatinine at time of admission was 1.58. Received IV fluids; creatinine improved to 1.35. Creatinine today = 1.57. Encourage oral fluid intake. Avoid potential nephrotoxins. Creatinine remains stable at around 1.5 Advised to drink more fluid-remains stable Check PRP today -remains sobia HYPOTHYROIDISM TSH = 22. Patient indicates that she is not taking levothyroxine on regular basis. Continue prescribed dose of 88 mcg daily on empty stomach. Recheck TSH in about 6 weeks. BIPOLAR ILLNESS [place] level 1.3 at time of admission. Prescribed diazepam 5 mg daily; unclear whether or not she is taking it as directed. Son indicates that patient has required inpatient psychiatric care in the past. Psychiatry consulted-appreciate input. Diazepam tapered and discontinued. Continue fluoxetine. Discussed with the psychiatrist Her lithium will be on hold until she sees psychiatrist as an outpatient- already has an appointment No acute symptoms WEIGHT LOSS May be multifactorial. Nutrition consulted Has been followed regularly by Urology for her urothelial carcinoma. Appetite improved. Continue Megace.and encourage more food intake PULMONARY MASS-Ruled Out by CT Ill-defined 2.4 cm density right lung noted on chest x-ray, but not confirmed by CT chest. AMBULATORY DYSFUNCTION / ? VERTIGO Worsening ambulatory dysfunction for > 1 year. Seen by Neurology and ENT. 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 [place] to have multifactorial dysequilibrium. Continue PT, OT. Will be discharged to [facility] for rehab when a bed is available VTE PROPHYLAXIS SQ heparin. Ambulate. DISPOSITION Evaluated by PT/OT. Not safe to be discharged home. Anticipate need for skilled care or rehab-likely to go to [facility] when accepted Internal Medicine follow-up with Dr. Blake. Awaiting placement Total time spent on discharge = 45 minutes This includes examination of the patient, discharge planning, medication reconciliation, and communication with other providers. Discharge Instructions Please follow-up with your primary care doctor and your psychiatrist after your stay at the nursing facility Discuss with psychiatry about restarting [place] Drink boost daily and take multivitamins daily
[2018-03-25 15:56] VITALS: BP 127/79; PULSE 75; TEMP 36.9; O2SAT 98
[2018-03-25 16:00] VITALS: O2SAT 98
[2018-03-26] VITALS: BP 144/75; PULSE 73; TEMP 36.5; O2SAT 100
[2018-03-26] MEDS: ACETAMINOPHEN 325 MG TAB PO PRN ×2 (01:29→15:59)
[2018-03-26] MEDS: LEVOTHYROXINE 88 MCG TAB PO SCH (05:03)
[2018-03-26 07:43] VITALS: BP 119/74; PULSE 86; TEMP 37.1; O2SAT 99
[2018-03-26] MEDS: BOOST VANILLA PO SCH (07:57)
[2018-03-26] MEDS: ASPIRIN 81 MG ECTAB PO SCH (07:57)
[2018-03-26] MEDS: MEGESTROL ACETATE 40 MG TAB PO SCH (07:58)
[2018-03-26] MEDS: FLUOXETINE HCL 10 MG CAP PO SCH (07:58)
[2018-03-26] MEDS: NICOTINE 14 MG/24 HR TDSY TD SCH (08:00)
[2018-03-26] MEDS: HEPARIN SOD 5000 UNIT/0.5 ML CARP SQ SCH ×2 (08:01→21:00)
[2018-03-26 15:39] VITALS: BP 103/64; PULSE 79; TEMP 36.8; O2SAT 99
--- NOTE | 2018-03-26 17:24 | Progress Note ---
Medicine Progress Note Date & Time of Visit: March 26, 2018 at 17:01. Subjective 77-year-old female admitted for acute delirium in setting of chronic dementia. Objective Last 8 Hrs Date Time Temp Pulse Resp B/P (MAP) Pulse Ox O2 Delivery O2 Flow Rate FiO2 03/26/18 16:00 Room Air 03/26/18 15:39 36.8 79 20 103/64 (77) 99 Room Air 03/26/18 12:12 Room Air Physical Exam: GEN: Thin and frail, in no acute distress, alert and appropriate HEENT: NC/AT, PERRL, normal sclerae CARDIO: reg rate, S1/2 heard without m/g/r LUNGS: CTA bilaterally, no crackles, rales or wheezes, good diaphragmatic excursion ABD: soft, non-tender, non-distended, no rebound or guarding EXTREMITY: RP and DP palpable 2+ bilat, no LE swelling or edema, extremities are warm and well-perfused NEURO: CN 2-12 grossly intact MUSC: Generalized weakness, no gross focal deficits SKIN: warm and dry Laboratory Results: 03/24/18 05:28 03/24/18 05:28 Test 03/06/18 12:28 03/06/18 12:39 03/06/18 17:19 03/08/18 07:05 Immature Granulocyte % (Auto) 0.1 % White Blood Count 8.11 K/uL (4.8-10.8) Red Blood Count 3.71 M/uL (4.2-5.4) Hemoglobin 12.3 g/dL (12.0-16.0) Hematocrit 38.8 % (37-47) Mean Corpuscular Volume 104.6 fL (80-100) Mean Corpuscular Hemoglobin 33.2 pg (25-34) Mean Corpuscular Hemoglobin Concent 31.7 g/dl (32-36) Platelet Count 283 K/uL (130-400) Mean Platelet Volume 9.5 fL (7.4-10.4) Neutrophils (%) (Auto) 77.3 % Lymphocytes (%) (Auto) 15.9 % Monocytes (%) (Auto) 4.9 % Eosinophils (%) (Auto) 1.4 % Basophils (%) (Auto) 0.4 % Neutrophils # (Auto) 6.27 K/uL (1.4-6.5) Lymphocytes # (Auto) 1.29 K/uL (1.2-3.4) Monocytes # (Auto) 0.40 K/uL (0.11-0.59) Eosinophils # (Auto) 0.11 K/uL (0-0.5) Basophils # (Auto) 0.03 K/uL (0-0.2) Immature Granulocyte # (Auto) 0.01 K/uL (0.00-0.02) Prothrombin Time 9.9 SECONDS (9.0-12.0) Prothromb Time International Ratio 0.9 (0.9-1.1) Activated Partial Thromboplast Time 23.6 SECONDS (21.0-31.0) Partial Thromboplastin Ratio 0.9 Total Bilirubin 0.4 mg/dl (0.2-1) Direct Bilirubin < 0.1 mg/dl (0-0.2) Aspartate Amino Transf (AST/SGOT) 25 U/L (15-37) Alanine Aminotransferase (ALT/SGPT) 28 U/L (12-78) Alkaline Phosphatase 95 U/L (45-117) Troponin I < 0.015 ng/ml (0-0.045) Total Protein 8.2 gm/dl (6.4-8.2) Albumin 4.3 gm/dl (3.4-5.0) Thyroid Stimulating Hormone (TSH) 22.000 uIu/ml (0.300-4.500) Free Thyroxine 0.91 ng/dl (0.80-1.60) Chemistry Specimen Hemolysis Urine Color YELLOW Urine Appearance CLEAR (CLEAR) Urine pH 6.0 (4.5-7.5) Urine Specific [place] 1.015 (1.000-1.030) Urine Protein NEG (NEG) Urine Glucose (UA) NEG (NEG) Urine Ketones NEG (NEG) Urine Occult Blood TRACE (NEG) Urine Nitrite NEG (NEG) Urine Bilirubin NEG (NEG) Urine Urobilinogen NEG (NEG) Urine Leukocyte Esterase NEG (NEG) Urine RBC 0-4 /hpf (0-4) Urine WBC 1-5 /hpf (0-5) Urine Epithelial Cells 5-10 /lpf (0-5) Urine Bacteria NEG (NEG) Lamotrigine (Lamictal) Level 0.8 mcg/mL (4.0-18.0) Vitamin B1 Level 14 nmol/L (8-30) Test 03/08/18 07:06 03/09/18 05:42 03/16/18 11:03 03/24/18 05:28 Ammonia 10.6 umol/L (11-32) Vitamin B12 Level 428 pg/mL (211-911) 25-Hydroxy Vitamin D Total 38.8 ng/ml (30-100) Folate 16.49 ng/mL (>5.38) [place] Level 0.5 mMOL/L (0.6-1.2) Magnesium Level 2.1 mg/dl (1.8-2.4) Red Blood Count 4.03 M/uL (4.2-5.4) Mean Corpuscular Volume 104.2 fL (80-100) Mean Corpuscular Hemoglobin 33.3 pg (25-34) Mean Corpuscular Hemoglobin Concent 31.9 g/dl (32-36) RDW Standard Deviation 52.2 fL (36.4-46.3) RDW Coefficient of Variation 13.6 % (11.5-14.5) Mean Platelet Volume 9.6 fL (7.4-10.4) Anion Gap 6.0 mmol/L (3-11) Est Creatinine Clear Calc Drug Dose 26.4 ml/min Estimated GFR () 50.1 Estimated GFR (Non- 43.3 BUN/Creatinine Ratio 44.6 (10-20) Calcium Level 10.4 mg/dl (8.5-10.1) Date/Time Source Procedure Growth Status 03/06/18 12:39 Urine,Catheterized Urine Culture - Final GREATER THAN THREE TYPES OF ORGANISMS... Complete Assessment & Plan 77-year-old female admitted for acute delirium in setting of chronic dementia. 1. Delirium on dementia-the patient is appropriate and delirium has resolved. 2. Bipolar disorder-Psychiatry was consulted in setting of bipolar disorder and recommended discontinuation of Valium as well as lithium with the last held due to renal disease and status post left nephrectomy. On admission the lithium level was elevated and has fallen. [place] has not been reinitiated during this hospitalization. She remains on Lamictal at an increased dose of 50 mg p.o. daily, is not taking Seroquel 25 mg nightly and is currently on Prozac 10 mg p.o. daily. She follows with an outpatient psychiatrist, Dr. Brody with whom she should follow as an outpatient post discharge. She has been stable without issues overnight 3. Weight loss-patient is thin and frail and reports a 20 pound weight loss over the last 2 years. Per prior discussion between the family and earlier providers this admission, there are concerns the patient is not eating correctly as a result of dementia and bipolar disorder. The patient underwent a target evaluation and has been accepted to go to [facility]. Currently awaiting insurance authorization for this. Patient is taking Megace. Continue boost supplementation. 4. Onychomycosis of toenails. Manual debridement was performed at bedside by podiatry. Outpatient follow-up with podiatry in 9 weeks was recommended. 5. CKD stage IV-status post nephrectomy. At baseline, continue to avoid nephrotoxic substances and renally dose medications as appropriate. 6. Hypothyroidism-uncontrolled, TSH was 22 on admission. The patient indicated she was not taking Synthroid on a regular basis. Synthroid has currently been ordered at her home dose of 88 mcg daily to be taken on an empty stomach. TSH repeat is recommended in 6-8 weeks. 7. Ambulatory dysfunction-worsening ambulatory dysfunction for greater than a year per prior notes. She has been seen by neurology and ENT this agree him. She will be discharged to rehab when insurance authorization has been established. DVT prophylaxis-heparin DNR Disposition-to rehab. Awaiting case management to secure authorization. Mariah Huang DO [facility] hospitalist Current Inpatient Medications: Current Inpatient Medications Medications (Trade) Dose Ordered Sig/Kim Route Start Time Stop Time Status Last Admin Dose Admin Heparin Sodium (Porcine) (Heparin Sq 5000 Unit/0.5ml) 5,000 unit Q12 SQ 03/06/18 21:00 04/05/18 20:59 03/26/18 08:01 5,000 UNIT Al Hydrox/Mg Hydrox/Simethicone (Maalox Max Susp) 15 ml Q4H PRN PO 03/06/18 15:00 04/05/18 14:59 Magnesium Hydroxide (Milk Of Magnesia Susp) 30 ml Q12H PRN PO 03/06/18 15:00 04/05/18 14:59 Ondansetron HCl (Zofran Inj) 4 mg Q6H PRN IV 03/06/18 15:00 04/05/18 14:59 Aspirin (Ecotrin Tab) 81 mg DAILY PO 03/07/18 09:00 04/06/18 08:59 03/26/18 07:57 81 MG Fluoxetine HCl (Prozac Cap) 10 mg DAILY PO 03/07/18 09:00 04/06/18 08:59 03/26/18 07:58 10 MG Lamotrigine (Lamictal Tab) 50 mg DAILY PO 03/07/18 09:00 04/06/18 08:59 03/26/18 07:57 50 MG Levothyroxine Sodium (Synthroid Tab) 88 mcg DAILYBB PO 03/07/18 06:30 04/06/18 06:59 03/26/18 05:03 88 MCG Nicotine (Nicoderm Cq 14MG Patch) 1 patch QAM TD 03/08/18 09:00 04/07/18 08:59 03/26/18 08:00 1 PATCH Miscellaneous (Remove Nicoderm Patch) 1 ea HS N/A 03/07/18 21:00 04/06/18 20:59 03/24/18 22:10 1 EA Megestrol Acetate (Megace Tab) 400 mg DAILY PO 03/24/18 08:00 04/23/18 07:59 03/26/18 07:58 400 MG Acetaminophen (Tylenol Tab) 650 mg Q6H PRN PO 03/23/18 11:45 04/22/18 11:44 03/26/18 15:59 650 MG
[2018-03-26 23:41] VITALS: BP 114/71; PULSE 71; TEMP 36.9; O2SAT 100
[2018-03-27] MEDS: ACETAMINOPHEN 325 MG TAB PO PRN ×3 (01:09→22:14)
[2018-03-27] MEDS: LEVOTHYROXINE 88 MCG TAB PO SCH (06:10)
[2018-03-27 07:49] VITALS: BP 94/64; PULSE 95; TEMP 36.7; O2SAT 97
[2018-03-27] MEDS ORDERED: BOOST VANILLA PO SCH (08:00)
[2018-03-27] MEDS: NICOTINE 14 MG/24 HR TDSY TD SCH (08:08)
[2018-03-27] MEDS: FLUOXETINE HCL 10 MG CAP PO SCH (08:09)
[2018-03-27] MEDS: ASPIRIN 81 MG ECTAB PO SCH (08:09)
[2018-03-27] MEDS: MEGESTROL ACETATE 40 MG TAB PO SCH (08:10)
[2018-03-27] MEDS: HEPARIN SOD 5000 UNIT/0.5 ML CARP SQ SCH ×2 (09:29→19:56)
[2018-03-27 11:09] VITALS: BP 94/64; PULSE 95; TEMP 36.7; O2SAT 97
[2018-03-27] MEDS ORDERED: TRAMADOL HCL 50 MG TAB PO STA (14:06)
[2018-03-27] MEDS ORDERED: ACETAMINOPHEN 325 MG TAB PO ONE (14:06)
[2018-03-27 15:11] VITALS: BP 131/75; PULSE 81; TEMP 36.6; O2SAT 100
--- NOTE | 2018-03-27 18:28 | Progress Note ---
Medicine Progress Note Date & Time of Visit: March 27, 2018 at 16:39. Subjective 77-year-old female admitted for acute delirium in setting of chronic dementia. Patient doing well today, tolerating p.o., denies any issues except some shoulder pain which she has had chronic bleeding in the left shoulder. We discussed pain control options and she opted for tramadol with Tylenol. Still awaiting for insurance authorization for transfer to [facility]. Objective Last 8 Hrs Date Time Temp Pulse Resp B/P (MAP) Pulse Ox O2 Delivery O2 Flow Rate FiO2 03/27/18 15:30 Room Air 03/27/18 15:11 36.6 81 20 131/75 (93) 100 Room Air 03/27/18 11:09 36.7 95 16 97 Room Air Physical Exam: GEN: Thin and frail, in no acute distress, alert and appropriate HEENT: NC/AT, PERRL, normal sclerae CARDIO: reg rate, S1/2 heard without m/g/r LUNGS: CTA bilaterally, no crackles, rales or wheezes, good diaphragmatic excursion ABD: soft, non-tender, non-distended, no rebound or guarding EXTREMITY: RP and DP palpable 2+ bilat, no LE swelling or edema, extremities are warm and well-perfused NEURO: CN 2-12 grossly intact MUSC: Generalized weakness, no gross focal deficits SKIN: warm and dry Laboratory Results: 03/24/18 05:28 03/24/18 05:28 Test 03/06/18 12:28 03/06/18 12:39 03/06/18 17:19 03/08/18 07:05 Immature Granulocyte % (Auto) 0.1 % White Blood Count 8.11 K/uL (4.8-10.8) Red Blood Count 3.71 M/uL (4.2-5.4) Hemoglobin 12.3 g/dL (12.0-16.0) Hematocrit 38.8 % (37-47) Mean Corpuscular Volume 104.6 fL (80-100) Mean Corpuscular Hemoglobin 33.2 pg (25-34) Mean Corpuscular Hemoglobin Concent 31.7 g/dl (32-36) Platelet Count 283 K/uL (130-400) Mean Platelet Volume 9.5 fL (7.4-10.4) Neutrophils (%) (Auto) 77.3 % Lymphocytes (%) (Auto) 15.9 % Monocytes (%) (Auto) 4.9 % Eosinophils (%) (Auto) 1.4 % Basophils (%) (Auto) 0.4 % Neutrophils # (Auto) 6.27 K/uL (1.4-6.5) Lymphocytes # (Auto) 1.29 K/uL (1.2-3.4) Monocytes # (Auto) 0.40 K/uL (0.11-0.59) Eosinophils # (Auto) 0.11 K/uL (0-0.5) Basophils # (Auto) 0.03 K/uL (0-0.2) Immature Granulocyte # (Auto) 0.01 K/uL (0.00-0.02) Prothrombin Time 9.9 SECONDS (9.0-12.0) Prothromb Time International Ratio 0.9 (0.9-1.1) Activated Partial Thromboplast Time 23.6 SECONDS (21.0-31.0) Partial Thromboplastin Ratio 0.9 Total Bilirubin 0.4 mg/dl (0.2-1) Direct Bilirubin < 0.1 mg/dl (0-0.2) Aspartate Amino Transf (AST/SGOT) 25 U/L (15-37) Alanine Aminotransferase (ALT/SGPT) 28 U/L (12-78) Alkaline Phosphatase 95 U/L (45-117) Troponin I < 0.015 ng/ml (0-0.045) Total Protein 8.2 gm/dl (6.4-8.2) Albumin 4.3 gm/dl (3.4-5.0) Thyroid Stimulating Hormone (TSH) 22.000 uIu/ml (0.300-4.500) Free Thyroxine 0.91 ng/dl (0.80-1.60) Chemistry Specimen Hemolysis Urine Color YELLOW Urine Appearance CLEAR (CLEAR) Urine pH 6.0 (4.5-7.5) Urine Specific [place] 1.015 (1.000-1.030) Urine Protein NEG (NEG) Urine Glucose (UA) NEG (NEG) Urine Ketones NEG (NEG) Urine Occult Blood TRACE (NEG) Urine Nitrite NEG (NEG) Urine Bilirubin NEG (NEG) Urine Urobilinogen NEG (NEG) Urine Leukocyte Esterase NEG (NEG) Urine RBC 0-4 /hpf (0-4) Urine WBC 1-5 /hpf (0-5) Urine Epithelial Cells 5-10 /lpf (0-5) Urine Bacteria NEG (NEG) Lamotrigine (Lamictal) Level 0.8 mcg/mL (4.0-18.0) Vitamin B1 Level 14 nmol/L (8-30) Test 03/08/18 07:06 03/09/18 05:42 03/16/18 11:03 03/24/18 05:28 Ammonia 10.6 umol/L (11-32) Vitamin B12 Level 428 pg/mL (211-911) 25-Hydroxy Vitamin D Total 38.8 ng/ml (30-100) Folate 16.49 ng/mL (>5.38) [place] Level 0.5 mMOL/L (0.6-1.2) Magnesium Level 2.1 mg/dl (1.8-2.4) Red Blood Count 4.03 M/uL (4.2-5.4) Mean Corpuscular Volume 104.2 fL (80-100) Mean Corpuscular Hemoglobin 33.3 pg (25-34) Mean Corpuscular Hemoglobin Concent 31.9 g/dl (32-36) RDW Standard Deviation 52.2 fL (36.4-46.3) RDW Coefficient of Variation 13.6 % (11.5-14.5) Mean Platelet Volume 9.6 fL (7.4-10.4) Anion Gap 6.0 mmol/L (3-11) Est Creatinine Clear Calc Drug Dose 26.4 ml/min Estimated GFR () 50.1 Estimated GFR (Non- 43.3 BUN/Creatinine Ratio 44.6 (10-20) Calcium Level 10.4 mg/dl (8.5-10.1) Date/Time Source Procedure Growth Status 03/06/18 12:39 Urine,Catheterized Urine Culture - Final GREATER THAN THREE TYPES OF ORGANISMS... Complete Assessment & Plan 77-year-old female admitted for acute delirium in setting of chronic dementia. Patient doing well today, tolerating p.o., denies any issues except some shoulder pain which she has had chronic bleeding in the left shoulder. We discussed pain control options and she opted for tramadol with Tylenol. Still awaiting for insurance authorization for transfer to [facility]. 1. Left shoulder pain-chronic shoulder pain as an outpatient. Patient reports taking Tylenol for this. She states this does not often work for her so will try tramadol in combination with Tylenol. Will also order a heating pad. 2. Delirium on dementia-the patient is appropriate and delirium has resolved. 3. Bipolar disorder-Psychiatry was consulted in setting of bipolar disorder and recommended discontinuation of Valium as well as lithium with the last held due to renal disease and status post left nephrectomy. On admission the lithium level was elevated and has fallen. [place] has not been reinitiated during this hospitalization. She remains on Lamictal at an increased dose of 50 mg p.o. daily, is not taking Seroquel 25 mg nightly and is currently on Prozac 10 mg p.o. daily. She follows with an outpatient psychiatrist, Dr. Brody with whom she should follow as an outpatient post discharge. She has been stable without issues overnight 4. Weight loss-patient is thin and frail and reports a 20 pound weight loss over the last 2 years. Per prior discussion between the family and earlier providers this admission, there are concerns the patient is not eating correctly as a result of dementia and bipolar disorder. The patient underwent a target evaluation and has been accepted to go to [facility]. Currently awaiting insurance authorization for this. Patient is taking Megace. Continue boost supplementation. 5. Onychomycosis of toenails. Manual debridement was performed at bedside by podiatry. Outpatient follow-up with podiatry in 9 weeks was recommended. 6. CKD stage IV-status post nephrectomy. At baseline, continue to avoid nephrotoxic substances and renally dose medications as appropriate. 7. Hypothyroidism-uncontrolled, TSH was 22 on admission. The patient indicated she was not taking Synthroid on a regular basis. Synthroid has currently been ordered at her home dose of 88 mcg daily to be taken on an empty stomach. TSH repeat is recommended in 6-8 weeks. 8. Ambulatory dysfunction-worsening ambulatory dysfunction for greater than a year per prior notes. She has been seen by neurology and ENT this agree him. She will be discharged to rehab when insurance authorization has been established. DVT prophylaxis-heparin DNR Disposition-to rehab. Awaiting case management to secure authorization. Mariah Huang DO [facility] hospitalist Current Inpatient Medications: Current Inpatient Medications Medications (Trade) Dose Ordered Sig/Kim Route Start Time Stop Time Status Last Admin Dose Admin Heparin Sodium (Porcine) (Heparin Sq 5000 Unit/0.5ml) 5,000 unit Q12 SQ 03/06/18 21:00 04/05/18 20:59 03/27/18 09:29 5,000 UNIT Al Hydrox/Mg Hydrox/Simethicone (Maalox Max Susp) 15 ml Q4H PRN PO 03/06/18 15:00 04/05/18 14:59 Magnesium Hydroxide (Milk Of Magnesia Susp) 30 ml Q12H PRN PO 03/06/18 15:00 04/05/18 14:59 Ondansetron HCl (Zofran Inj) 4 mg Q6H PRN IV 03/06/18 15:00 04/05/18 14:59 Aspirin (Ecotrin Tab) 81 mg DAILY PO 03/07/18 09:00 04/06/18 08:59 03/27/18 08:09 81 MG Fluoxetine HCl (Prozac Cap) 10 mg DAILY PO 03/07/18 09:00 04/06/18 08:59 03/27/18 08:09 10 MG Lamotrigine (Lamictal Tab) 50 mg DAILY PO 03/07/18 09:00 04/06/18 08:59 03/27/18 08:09 50 MG Levothyroxine Sodium (Synthroid Tab) 88 mcg DAILYBB PO 03/07/18 06:30 04/06/18 06:59 03/27/18 06:10 88 MCG Nicotine (Nicoderm Cq 14MG Patch) 1 patch QAM TD 03/08/18 09:00 04/07/18 08:59 03/27/18 08:08 1 PATCH Miscellaneous (Remove Nicoderm Patch) 1 ea HS N/A 03/07/18 21:00 04/06/18 20:59 03/26/18 21:12 1 EA Megestrol Acetate (Megace Tab) 400 mg DAILY PO 03/24/18 08:00 04/23/18 07:59 03/27/18 08:10 400 MG Acetaminophen (Tylenol Tab) 650 mg Q6H PRN PO 03/23/18 11:45 04/22/18 11:44 03/27/18 06:38 650 MG
[2018-03-27] MEDS: TRAMADOL HCL 50 MG TAB PO PRN (19:53)
[2018-03-28 00:15] VITALS: BP 153/80; PULSE 81; TEMP 36.9; O2SAT 99
[2018-03-28] MEDS: TRAMADOL HCL 50 MG TAB PO PRN ×2 (01:41→13:07)
[2018-03-28] MEDS: LEVOTHYROXINE 88 MCG TAB PO SCH (06:40)
[2018-03-28] MEDS: ACETAMINOPHEN 325 MG TAB PO PRN (06:42)
[2018-03-28 07:25] VITALS: BP 104/62; PULSE 85; TEMP 37.1; O2SAT 100
[2018-03-28] MEDS: FLUOXETINE HCL 10 MG CAP PO SCH (07:38)
[2018-03-28] MEDS: MEGESTROL ACETATE 40 MG TAB PO SCH (07:38)
[2018-03-28] MEDS: ASPIRIN 81 MG ECTAB PO SCH (07:39)
[2018-03-28] MEDS: NICOTINE 14 MG/24 HR TDSY TD SCH (07:41)
[2018-03-28] MEDS: HEPARIN SOD 5000 UNIT/0.5 ML CARP SQ SCH (07:43)
[2018-03-28 08:00] VITALS: O2SAT 100
[2018-03-28 14:45] VITALS: BP 104/62; PULSE 85; TEMP 37.1; O2SAT 100
[2018-03-28 15:04] VITALS: BP 111/66; PULSE 77; TEMP 36.8; O2SAT 92
== END 2018-03-28 16:38 | DRG 947 ==
LOC: EDBD 11:40 → C.EDC 11:42 → C.MED 14:54 → ENRESERV 15:29 → C.4E 03-14 20:42
PROVIDERS: ADMIT Internal Medicine; ATTEND Hospitalist
DX: R41.0 Disorientation, unspecified (principal); G93.41 Metabolic encephalopathy; N18.4 Chronic kidney disease, stage 4 (severe); Z68.1 Body mass index [BMI] 19.9 or less, adult; F17.200 Nicotine dependence, unspecified, uncomplicated; F31.9 Bipolar disorder, unspecified; J44.9 Chronic obstructive pulmonary disease, unspecified; E78.5 Hyperlipidemia, unspecified; K21.9 Gastro-esophageal reflux disease without esophagitis; E03.9 Hypothyroidism, unspecified; Z96.653 Presence of artificial knee joint, bilateral; E86.0 Dehydration; R26.9 Unspecified abnormalities of gait and mobility; R42 Dizziness and giddiness; R29.6 Repeated falls; R63.4 Abnormal weight loss; Z66 Do not resuscitate; L60.3 Nail dystrophy; B35.1 Tinea unguium; F03.90 Unspecified dementia, unspecified severity, without behavioral disturbance, psychotic disturbance, mood disturbance, and anxiety; D75.89 Other specified diseases of blood and blood-forming organs; R62.7 Adult failure to thrive; Z79.82 Long term (current) use of aspirin; Z85.528 Personal history of other malignant neoplasm of kidney; Z88.0 Allergy status to penicillin; Z90.710 Acquired absence of both cervix and uterus; Z83.3 Family history of diabetes mellitus; Z80.8 Family history of malignant neoplasm of other organs or systems; Z80.42 Family history of malignant neoplasm of prostate

== ENCOUNTER 2019-04-15 13:34 | Observation (INO) ==
--- OUTSIDE RECORDS SUMMARY | 2019-04-15 13:37 | External Medical Summary | Continuity of Care Document ---
:1940 Author Name Julius John Address Unavailable Unavailable , Care Team Providers Name Role Phone Unavailable Unavailable Unavailable Laly Mcgill [email or web address] Unavailable Unavailable Unavailable Unavailable Unavailable Problems Aphthous ulcer (528.2) (K12.0) Parotid neoplasm (239.0) (D49.0) Hematuria (599.70) (R31.9) Secondary hyperparathyroidism (588.81) (N25.81) Urinary tract infection (599.0) (N39.0) Urinary incontinence (788.30) (R32) Urge incontinence of urine (788.31) (N39.41) Malignant tumor of kidney (189.0) (C64.9) 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 Dora Refills: 0 Oxybutynin Chloride ER 10 MG Oral Tablet Extended Release 24 Hour; Take 1 tablet daily Dora Mcgill I. Start: 29-Aug-2017 Quantity: 30 Refills: 6 Clindamycin Phosphate Dora KAM Refills: 0 Estrace 0.1 MG/GM Vaginal Cream; INSERT 1/4 APPLICATORFUL (1GM) VAGINALLY THREE TIMES WEEKLY. Dora Mcgill I. Start: 16-Sep-2014 Quantity: 1 42.5 GM Tube Refills: 6 Calcium + D TABS , M.D. Refills: 0 Synthroid 100 MCG Oral Tablet; TAKE 1 TABLET DAILY. , M.D. Quantity: 90 Refills: 3 Vitamin D3 1000 UNIT Oral Capsule; TAKE 1 CAPSULE Daily , M. D. Refills: 0 [place] 0.025 MG/24HR Transdermal Patch Weekly , M.D. Refills: 0 Procedures History of Oophorectomy Status: Complete d History of Knee Replacement Status: Comp leted History of Cystoscopy With Resection Of Tumor Status: Completed History of Cystoscopy With Ureteroscopy For Biopsy Status: Completed History of Central IV Line Replace Cath Only For Device W/ P ort Status: Completed Or Pump History of Kidney Surgery Laparoscopically Assisted Status: Completed Nephroureterectomy Immunizations Immunizations not documented Family History Father Family history of Father At Age ___ Status: Active Family history of Prostate Cancer (V16.42) Status: Active Mother Family history of Mother At Age ___ Status: Active Family history of Breast Cancer (V16.3) Status: Active Social History - Smoking Status Former smoker Plan of Treatment Planned Observations Planned Goals not documented Results No Known Results Results not documented Encounters Appointment; Ashu Mcgill M.D. 29-Aug-2017 13:40 Encounter Diagnosis: Problem not documented Appointment; Urology, Room 7 29-Aug-2017 13:30 Encounter Diagnosis: Problem not documented
[2019-04-15] MEDS ORDERED: SODIUM CHLORIDE 0.9% 500 ML IV SCH (14:15)
--- NOTE | 2019-04-15 14:22 | XRay Report ---
XR chest 1V portable CLINICAL HISTORY: weakness dyspnea COMPARISON STUDY: 01/21/2019 FINDINGS: Central catheter in superior vena cava. Moderate stable emphysematous change. No acute infi ltrate. IMPRESSION: Chronic change. Emphysematous change. No acute process. The above report was generated using voice recognition software. It may contain grammatical, syntax or spelling errors. Electronically signed by: Jose Resendiz M.D. 04/15/2019 2:21 PM
[2019-04-15 15:08] LABS: Basophils # (auto) 0.01 K/uL (0-0.2); Basophils % (auto) 0.2 %; Eosinophils # (auto) 0.05 K/uL (0-0.5); Eosinophils % (auto) 0.8 %; Hematocrit (blood only) 42.4 % (37-47); Hemoglobin 13.5 g/dL (12.0-16.0); Immature Granulocytes # (auto) 0.02 K/uL (0.00-0.02); Immature Granulocytes % (auto) 0.3 %; Lymphocytes % (auto) 15.1 %; Mean Corpuscular Hgb Conc 31.8 g/dL (32-36); Mean Corpuscular Volume 96.4 fL (80-100); Mean Platelet Volume 9.8 fL (7.4-10.4); Monocytes # (auto) 0.36 K/uL (0.11-0.59); Monocytes % (auto) 5.4 %; Neutrophils # (auto) 5.19 K/uL (1.4-6.5); Neutrophils % (auto) 78.2 %; Platelet Count 252 K/uL (130-400); RDW Coefficient of Variation 13.5 % (11.5-14.5); RDW Standard Deviation 47.7 fL (36.4-46.3); White Blood Count 6.63 K/uL (4.8-10.8)
[2019-04-15 15:10] LABS: Appearance Urine Clear (Clear); Bilirubin Urine Negative (Negative); Blood Urine Negative (Negative); Color Urine Yellow; Glucose Urine UA Negative (Negative); Ketones Urine Negative (Negative); Leukocyte Esterase Urine Negative (Negative); Nitrite Urine Negative (Negative); Protein Urine Negative (Negative); Specific Gravity Urine 1.015 (1.000-1.030); Urobilinogen Urine Negative (Negative); pH Urine 6.5 (4.5-7.5)
--- NOTE | 2019-04-15 15:17 | Emergency Department Note ---
Entered by Melodie Amato acting as a scribe for History of Present Illness General Chief complaint: Illness Stated complaint: dizziness Time Seen by Provider: 04/15/19 14:01 Source: patient Mode of arrival: EMS Limitations: no limitations History of Present Illness Onset (ago): day(s) 3 Location: head (dizziness) Severity: severe (She notes that the pain is extreme. ) Pain Consistency: + constant Maximum Pain Intensity: 0 Quality: + other (The patient describes her dizziness as lightheadedness. ) Relieved By: + rest Exacerbated By: + movement Associated symptoms: + fever/chills (The patient complains of a fever of 101 yesterday. ), + headaches, + shortness of breath, + weakness (generalized) and + other (The patient complains of urinary frequency and burning. THe patient denies diarrhea. ); no chest pain, no cough and no nausea/vomiting (The patient denies vomiting. ) The patient is a 78 year old female with a history of chronic kidney disease, arthritis, and COPD who presents to the ED via EMS with complaints of constant dizziness that onset 3 days ago. She notes that the dizziness is extreme. The patient was referred by [facility] for a concern of infection. The patient describes her dizziness as lightheadedness. The patient complains of generalized weakness, a fever of 101 degrees yesterday, shortness of breath, headache, urination frequency, and urinary burning. The patient denies chest pain, cough, vomiting, and diarrhea. Home Medications Home Medications Medication Instructions Recorded Confirmed Type levothyroxine [Synthroid] 88 mcg PO QAM 09/01/18 04/15/19 History gabapentin 100 mg PO HS #14 cap 11/04/18 04/15/19 Rx Caltrate 600 + D 1 tab PO HS 11/20/18 04/15/19 History folic acid 1 mg PO QDL 11/20/18 04/15/19 History acetaminophen [Tylenol] 650 mg PO Q4H PRN 01/21/19 04/15/19 History Medical Marijuana Cream 1 applic TOPICAL UD 04/15/19 04/15/19 History Medical Marijuana Oral Sylvia 1 spray PO TID 04/15/19 History diazepam 2 mg PO DAILY PRN 04/15/19 04/15/19 History lamotrigine [Lamictal] 25 mg PO DAILY 04/15/19 04/15/19 History eelnjwzlnovt-trtq-qtorx acid 1 tab PO QAM 04/15/19 04/15/19 History [Centrum] Allergies Allergy/AdvReac Type Severity Reaction Status Date / Time Penicillins Allergy Mild RASH Verified 04/15/19 15:40 albuterol [From ProAir HFA] AdvReac Intermediate Dizziness Unverified 04/15/19 15:40 Past Med/Surg History Medical History Hypothyroidism (Chronic) Bipolar disorder (Chronic) Neuropathy (Chronic) CKD (chronic kidney disease), stage IV (Chronic) S/p nephrectomy (Chronic) Tobacco abuse (Chronic) COPD (chronic obstructive pulmonary disease) (Chronic) Osteoarthritis (Chronic) Malignant tumor of urinary bladder (Chronic) Malignant tumor of kidney (Chronic) Altered mental status Bladder cancer CKD (chronic kidney disease), stage IV COPD (chronic obstructive pulmonary disease) Dizziness History of kidney cancer Tobacco abuse UTI (urinary tract infection) Urothelial cancer (~2010) Surgical History History of partial hysterectomy (Chronic) H/O dilation and curettage (Chronic) H/O: hysterectomy Hx of total knee arthroplasty S/p nephrectomy "Left" Family History Aunt Heart disease [place] in her 50s Mother Breast cancer Father Prostate cancer Social History Preferred Language: [place]an Communication Ability: Effective Visual Impairment: No Limitations Hearing Ability: Normal Material Combiner Required: No Beliefs That Will Affect Care: None Current Living Situation: Alone Other Information That Helps Us Care for You: No Feels Safe at Home: Yes Safety Concerns: Feels Safe At This Time Smoking Status: Current every day smoker Tobacco Type: cigarettes Cigarettes Per Day: 10 Do You Dip or Chew Tobacco: No Second Hand Exposure: No Tobacco Cessation Education Requested by Patient: No Hx Alcohol Use: No Hx Substance Use: Yes substance use type: other Substance Use Type Other:: Medical Marijuana Review of Systems See HPI for pertinent positives & negatives. and A total of 10 systems reviewed and were otherwise negative Physical Exam Vital Signs Vital Signs - 24 hr 04/15/19 13:44 04/15/19 14:10 04/15/19 15:03 Temperature 36.8 C Temperature Source Oral Sepsis Recent Fever Within 48 Hours No Sepsis Action Taken by Nursing No Action Required Pulse Rate - Lying 73 Pulse Rate - Sitting 75 Pulse Rate - Standing 81 Pulse Rate 75 Pulse Rate [Right Finger] 73 Pulse Rhythm Regular Pulse Rhythm [Right Finger] Regular Pulse Strength Normal Pulse Strength [Right Finger] Normal Respiratory Rate 20 20 Respiratory Effort / Characteristics Non-Labored Non-Labored Spontaneous Respiratory Depth Normal Normal Respiratory Pattern Regular Regular Blood Pressure - Lying 123/62 Blood Pressure - Sitting 118/82 Blood Pressure- Standing 100/71 Blood Pressure 120/84 Blood Pressure [Right Arm] 157/83 H Blood Pressure Mean 96 Blood Pressure Mean [Right Arm] 107 Blood Pressure Position Lying Blood Pressure Position [Right Arm] Lying Pulse Oximetry 99 96 Oxygen Delivery Method Room Air Room Air GENERAL: Patient is in no acute distress. HEENT: No acute trauma, normocephalic atraumatic, mucous membranes moist, no nasal congestion, no scleral icterus. NECK: No stridor, no adenopathy, no meningismus, trachea is midline. LUNGS: Diminished breath sounds with bilateral wheezing and crackles, more so on the left. HEART: Without murmurs gallops or rubs, regular rate and rhythm. ABDOMEN: Soft, nontender, bowel sounds positive, no hernias, no peritonitis. EXTREMITIES: No cyanosis or edema, full range of motion of all the joints without pain or difficulty, no signs for acute trauma. NEUROLOGIC: Oriented x 3, no acute motor or sensory deficits, no focal weakness. No cerebellar deficits or pronator drift. No speech slur. SKIN: No rash, no jaundice, no diaphoresis. Course 1405: Past medical records reviewed. The patient was evaluated in room B11A. A complete history and physical examination was performed. 1557: I have updated the patient on the results of her scans. 1555: I reviewed the patient's case with Mitra Nolan. She will evaluate the patient for further management. Consultations Consultation #1: 1555: I reviewed the patient's case with Mitra Nolan. She will evaluate the patient for further management. Administered Medications Acetaminophen (Tylenol) 650 mg PO Q4H PRN PRN Reason: Pain or Fever Stop: 05/15/19 18:14 Last Admin: 04/15/19 21:17 Dose: 650 mg Documented by: [id number] Gabapentin (Neurontin) 100 mg PO HS [facility] Stop: 05/15/19 20:59 Last Admin: 04/15/19 21:13 Dose: 100 mg Documented by: [id number] Heparin Sodium (Porcine) (Heparin Sodium (Porcine)) 5,000 units SQ Q8 EDUARDO Stop: 05/15/19 21:59 Last Admin: 04/15/19 21:13 Dose: 5,000 units Documented by: [id number] Cosigned by: [id number] Sodium Chloride (Nss 1000ml) 1,000 mls @ 100 mls/hr IV .Q10H EDUARDO Stop: 05/15/19 18:14 Last Admin: 04/15/19 19:22 Dose: 100 mls/hr Documented by: [id number] Lamotrigine (Lamictal) 12.5 mg PO BID EDUARDO Stop: 05/15/19 20:59 Last Admin: 04/15/19 21:12 Dose: 12.5 mg Documented by: [id number] Miscellaneous (Remove Nicoderm Patch) 1 ea N/A HS EDUARDO Stop: 05/15/19 20:59 Last Admin: 04/15/19 21:13 Dose: Not Given Documented by: [id number] Multivitamins/Minerals (Caltrate Plus) 1 tab PO HS EDUARDO Stop: 05/15/19 20:59 Last Admin: 04/15/19 21:13 Dose: 1 tab Documented by: [id number] Nicotine (Nicoderm Cq) 21 mg TD QAM EDUARDO Stop: 05/15/19 19:59 Last Admin: 04/15/19 21:11 Dose: 21 mg Documented by: [id number] Discontinued Medications Sodium Chloride (Nss) 500 mls @ 999 mls/hr IV .Q31M EDUARDO Stop: 04/15/19 14:45 Last Infusion: 04/15/19 15:55 Dose: 0 mls/hr Documented by: [id number] Admin: 04/15/19 15:23 Dose: 999 mls/hr Documented by: [id number] Medical Decision Making Differential Diagnosis Differential diagnosis includes: Orthostasis, dehydration, vertigo, stroke, anemia, electrolyte imbalance, UTI, sepsis. Medical Records Attestation: I reviewed the patient's medical records. Home Medications Current Medication List: was personally reviewed by me Laboratory Data Attestation: I reviewed the patient's lab results. Result diagrams: 04/15/19 14:50 04/15/19 20:13 Lab Results 04/15/19 04/15/19 04/15/19 Range/Units 14:50 14:50 15:00 WBC 6.63 (4.8-10.8) K/uL RBC 4.40 (4.2-5.4) M/uL Hgb 13.5 (12.0-16.0) g/dL Hct 42.4 (37-47) % MCV 96.4 (80-100) fL MCH 30.7 (25-34) pg MCHC 31.8 L (32-36) g/dL RDW Std Deviation 47.7 H (36.4-46.3) fL RDW Coeff of Margarito 13.5 (11.5-14.5) % Plt Count 252 (130-400) K/uL MPV 9.8 (7.4-10.4) fL Immature Gran % (Auto) 0.3 % Neut % (Auto) 78.2 % Lymph % (Auto) 15.1 % [place] % (Auto) 5.4 % Eos % (Auto) 0.8 % Baso % (Auto) 0.2 % Immature Gran # (Auto) 0.02 (0.00-0.02) K/uL Neut # (Auto) 5.19 (1.4-6.5) K/uL Lymph # (Auto) 1.00 L (1.2-3.4) K/uL [place] # (Auto) 0.36 (0.11-0.59) K/uL Eos # (Auto) 0.05 (0-0.5) K/uL Baso # (Auto) 0.01 (0-0.2) K/uL Sodium 142 (136-145) mmol/L Potassium 4.0 (3.5-5.1) mmol/L Chloride 109 H (98-107) mmol/L Carbon Dioxide 26 (21-32) mmol/L Anion Gap 7.0 (3-11) BUN 34 H (7-18) mg/dl Creatinine 1.32 H (0.6-1.2) mg/dl Est Cr Clr Drug Dosing 21.2 ml/min Est GFR ( Amer) 44.4 Est GFR (Non-Af Amer) 38.3 BUN/Creatinine Ratio 25.4 H (10-20) Glucose 89 (70-99) mg/dl Calcium 10.5 H (8.5-10.1) mg/dl Magnesium 2.2 (1.8-2.4) mg/dl Total Bilirubin 0.3 (0.2-1) mg/dl AST 18 (15-37) U/L ALT 20 (12-78) U/L Alkaline Phosphatase 102 (45-117) U/L Troponin I 0.182 H* (0-0.045) ng/ml Total Protein 8.0 (6.4-8.2) gm/dl Albumin 3.8 (3.4-5.0) gm/dl Globulin 4.2 H (2.5-4.0) gm/dl Albumin/Globulin Ratio 0.9 (0.9-2) TSH 3.880 (0.300-4.500) uIu/ml Urine Color Yellow Urine Appearance Clear (Clear) Urine pH 6.5 (4.5-7.5) Ur Specific [place] 1.015 (1.000-1.030) Urine Protein Negative (Negative) Urine Glucose (UA) Negative (Negative) Urine Ketones Negative (Negative) Urine Blood Negative (Negative) Urine Nitrite Negative (Negative) Urine Bilirubin Negative (Negative) Urine Urobilinogen Negative (Negative) Ur Leukocyte Esterase Negative (Negative) Imaging Data Radiologist's Impression: Radiology results as stated below per my review and the radiologist's interpretation: CT head/brain wo con CLINICAL HISTORY: 78 years-old Female with dizziness. Acute dizziness with weakness TECHNIQUE: Multiple axial CT images of the head were obtained without contrast. A dose lowering technique was utilized adhering to the principles of ALARA. CT DOSE: 638.56 mGycm COMPARISON: Head CT 11/20/2018. FINDINGS: No acute intracranial hemorrhage, midline shift, intracranial mass, hydrocephalus, territorial ischemia or abnormal extra-axial collection. Age- related involutional changes. Senescent calcifications of the lentiform nuclei. Cerebral vascular calcifications are noted. Patchy white matter hypodensities suggest chronic microvascular ischemic disease, unchanged from comparison. The calvarium is intact. The paranasal sinuses, mastoid air cells, and middle ear cavities are clear. IMPRESSION: No acute intracranial abnormality. The above report was generated using voice recognition software. It may contain grammatical, syntax or spelling errors. Electronically signed by: Rene Royal M.D. 04/15/2019 3:23 PM Dictated: 04/15/19 1521 Transcribed: 04/15/19 1521 XR chest 1V portable CLINICAL HISTORY: weakness dyspnea COMPARISON STUDY: 01/21/2019 FINDINGS: Central catheter in superior vena cava. Moderate stable emphysematous change. No acute infiltrate. IMPRESSION: Chronic change. Emphysematous change. No acute process. The above report was generated using voice recognition software. It may contain grammatical, syntax or spelling errors. Electronically signed by: Jose Resendiz M.D. 04/15/2019 2:21 PM Dictated: 04/15/19 1421 Transcribed: 04/15/19 142 ECG Data Attestation: I personally reviewed and interpreted this ECG as follows: Indication: other (dizziness) Rate (beats per minute): 68 Rhythm: normal sinus Findings: + other (Old septal infarct, nonspecific ST changes diffusely); no PVC Blood Pressure Blood Pressure Findings: Elevated blood pressure Blood Pressure Disposition: further management by hospitalist MDM Narrative There is no leukocytosis or concerning anemia. There is some renal insufficiency but this appears baseline. No liver enzyme elevation. The patient appears to be in a euthyroid state. EKG shows a sinus rhythm with some nonspecific change, no acute ischemia. Cardiac enzyme testing x1 is elevated, this is concerning for cardiac injury or strain. Chest film shows evidence for COPD, no pneumonia or CHF. Brain CT shows no acute bleed or mass-effect. Urinalysis does not show evidence for infection. On exam, there were no focal neurologic deficits. The patient received IV saline, 500 cc. The patient presents to the ED with weakness and dizziness for 3 days. Work-up here demonstrates potential cardiac injury. Further work-up in the hospital is warranted. I spoke to the patient and case management. The on-call hospitalist was consulted. Impression & Plan Elevated troponin, Weakness, Dizziness Discharge Plan Visit Data *Final* Discharge Date/Time: 04/15/19 17:39 Chief Complaint: Illness Stated Complaint: dizziness ED Provider: Gregory Dutton Discharge Problem: Elevated troponin, Weakness, Dizziness Patient Disposition: Admitted As Inpatient Discharge Instructions Interventions: ED Discharge Assessment Last Done: 04/15/19 17:39 The scribe's documentation has been prepared under my direction and personally reviewed by me in its entirety. I confirm that the note above accurately reflects all work, treatment, procedures, and medical decision making performed by me.
[2019-04-15 15:20] LABS: Albumin Level 3.8 gm/dl (3.4-5.0); BUN Creatinine Ratio 25.4 (10-20); Calcium 10.5 mg/dl (8.5-10.1); Creatinine Clr Calc Pharmacy 21.2 ml/min; Est GFR (African American) 44.4; Est GFR (Non-African American) 38.3; Magnesium 2.2 mg/dl (1.8-2.4)
--- NOTE | 2019-04-15 15:24 | CT Scan Report ---
CT head/brain wo con CLINICAL HISTORY: 78 years-old Female with dizziness. Acute dizziness with weakness TECHNIQUE: Multiple axial CT images of the head were obtained without contrast. A dose lowering tech nique was utilized adhering to the principles of ALARA. CT DOSE: 638.56 mGycm COMPARISON: Head CT 11/20/2018. FINDINGS: No acute intracranial hemorrhage, midline shift, intracranial mass, hydrocephalus, territorial ischem ia or abnormal extra-axial collection. Age-related involutional changes. Senescent calcifications of the lentiform nuclei. Cerebral vascular calcifications are noted. Patchy white matter hypodensities s uggest chronic microvascular ischemic disease, unchanged from comparison. The calvarium is intact. The paranasal sinuses, mastoid air cells, and middle ear cavities are clear . IMPRESSION: No acute intracranial abnormality. The above report was generated using voice recognition software. It may contain grammatical, syntax o r spelling errors. Electronically signed by: Rene Royal M.D. 04/15/2019 3:23 PM
[2019-04-15 15:35] LABS: Albumin Globulin Ratio 0.9 (0.9-2); Bilirubin,Total 0.3 mg/dl (0.2-1); Globulin 4.2 gm/dl (2.5-4.0); Troponin I 0.182 ng/ml (0-0.045)
[2019-04-15 19:17] LABS: Alanine Aminotransferase 21 U/L (12-78); Albumin Level 3.5 gm/dl (3.4-5.0); BUN Creatinine Ratio 19.8 (10-20); Blood Urea Nitrogen 35 mg/dl (7-18); Calcium 10.1 mg/dl (8.5-10.1); Carbon Dioxide 27 mmol/L (21-32); Chloride 110 mmol/L (98-107); Creatinine Clr Calc Pharmacy 16.1 ml/min; Est GFR (African American) 31.8; Est GFR (Non-African American) 27.4; Glucose 102 mg/dl (70-99); Sodium 142 mmol/L (136-145)
[2019-04-15 19:20] LABS: Albumin Globulin Ratio 0.8 (0.9-2); Alkaline Phosphatase 101 U/L (45-117); Bilirubin,Total 0.4 mg/dl (0.2-1); Globulin 4.4 gm/dl (2.5-4.0); Total Protein 7.9 gm/dl (6.4-8.2)
[2019-04-15] MEDS: SODIUM CHLORIDE 0.9% 1000ML 1,000 ML IV SCH (19:22)
[2019-04-15 20:35] LABS: Potassium 4.6 mmol/L (3.5-5.1)
[2019-04-15 20:47] LABS: Troponin I 0.171 ng/ml (0-0.045)
--- NOTE | 2019-04-15 20:49 | History & Physical Report ---
Date of Service April 15, 2019 Assessment & Plan (1) Orthostasis: -Admit to telemetry -Patient presenting with reports of worsening dizziness (seems to be a chronic problem for the past 1 year) -Positive orthostatic BPs in the ED - ? If due to polypharmacy (fluvoxamine, diazepam, Ambien, gabapentin) -hold fluvoxamine, diazepam, Ambien (patient has not been routinely taking these medications as she reports they make her feel dizzy and do not help her mood) - may need follow-up with outpatient psychiatrist for further recommendations -IVF, monitor orthostatic BPs (2) Elevated troponin: -Mildly elevated troponin at 0.182 -EKG shows T wave flattening in the inferior and V4 through V6 leads, T wave inversion in lead V3 -one nonspecific episode of chest pain 2 days ago -? Clinical significance of elevated troponin -Continue to cycle troponin, consider initiation of heparin if significant elevation -Resting echo -Cariology consult, case discussed with Dr. Schuler (3) CKD (chronic kidney disease), stage IV: - baseline creat runs in the low to mid ones - creat noted to be 1.3 today - continue to monitor, avoid nephrotoxic agents when able (4) Bipolar disorder: -Continue Lamictal -Holding diazepam, fluvoxamine as above (5) Hypothyroidism: -Continue levothyroxine (6) Neuropathy: -Continue gabapentin (7) DVT prophylaxis: -SQ heparin History of Present Illness Chief Complaint: Dizziness Primary Care Provider: Aries Blake DO 78-year-old male who presents to the ED for evaluation of dizziness. Patient reports she has chronic dizziness however it has been worse over the past couple of days. Patient is somewhat of a poor historian. She reports worsening diz ziness with standing and activity. She also has chronic left shoulder pain which she attributes to arthritis. This is chronic and has been unchanged for the past 1 year. Patient reports one episode of chest pain a couple of days ago. She reports it was brief and only lasted for about 2 minutes. No specific causative or alleviating factors. She denies associated shortness of breath, diaphoresis, nausea. She has not had any syncopal events. No fevers or chills. She denies abdominal pain, vomiting, diarrhea. Reports her oral intake has been at baseline. Over the past 1 month, her psychiatrist has weaned her off Seroquel and started her on fluvoxamine and diazepam. Patient reports she has not been taking these medications because it makes her feel dizzy. She reports she has been taking the diazepam about every other day. Patient also takes Ambien very infrequently reports her last dose was 2 days ago. In the ED, patient was found to have positive orthostatic blood pressures. Initial troponin is 0.182, EKG shows T wave flattening in the inferior and V4 through V6 leads, T wave inversion in lead V3. Other labs are unremarkable. Patient was given IVF in the ED. Allergies Allergy/AdvReac Type Severity Reaction Status Date / Time Penicillins Allergy Mild RASH Verified 04/15/19 15:40 albuterol [From ProAir HFA] AdvReac Intermediate Dizziness Unverified 04/15/19 15:40 Home Medications Home Medications Medication Instructions Recorded Confirmed Type levothyroxine [Synthroid] 88 mcg PO QAM 09/01/18 04/15/19 History gabapentin 100 mg PO HS #14 cap 11/04/18 04/15/19 Rx Caltrate 600 + D 1 tab PO HS 11/20/18 04/15/19 History folic acid 1 mg PO QDL 11/20/18 04/15/19 History acetaminophen [Tylenol] 650 mg PO Q4H PRN 01/21/19 04/15/19 History Medical Marijuana Cream 1 applic TOPICAL UD 04/15/19 04/15/19 History Medical Marijuana Oral [place] 1 spray PO TID 04/15/19 History diazepam 2 mg PO DAILY PRN 04/15/19 04/15/19 History lamotrigine [Lamictal] 25 mg PO DAILY 04/15/19 04/15/19 History jxkmadlvxdpi-qvjz-xsadj acid 1 tab PO QAM 04/15/19 04/15/19 History [Centrum] Past Med/Surg History Medical History Hypothyroidism (Chronic) Bipolar disorder (Chronic) Neuropathy (Chronic) CKD (chronic kidney disease), stage IV (Chronic) S/p nephrectomy (Chronic) Tobacco abuse (Chronic) COPD (chronic obstructive pulmonary disease) (Chronic) Osteoarthritis (Chronic) Malignant tumor of urinary bladder (Chronic) Malignant tumor of kidney (Chronic) Altered mental status Bladder cancer CKD (chronic kidney disease), stage IV COPD (chronic obstructive pulmonary disease) Dizziness History of kidney cancer Tobacco abuse UTI (urinary tract infection) Urothelial cancer (~2010) Surgical History History of partial hysterectomy (Chronic) H/O dilation and curettage (Chronic) H/O: hysterectomy Hx of total knee arthroplasty S/p nephrectomy "Left" Family History Aunt Heart disease [place] in her 50s Mother Breast cancer Father Prostate cancer Social History Preferred Language: [place] Communication Ability: Effective Visual Impairment: No Limitations Hearing Ability: Normal Flight Control Specialist Required: No Beliefs That Will Affect Care: None Current Living Situation: Alone Other Information That Helps Us Care for You: No Feels Safe at Home: Yes Safety Concerns: Feels Safe At This Time Smoking Status: Current every day smoker Tobacco Type: cigarettes Cigarettes Per Day: 10 Do You Dip or Chew Tobacco: No Second Hand Exposure: No Tobacco Cessation Education Requested by Patient: No Hx Alcohol Use: No Hx Substance Use: Yes substance use type: other Substance Use Type Other:: Medical Marijuana Review of Systems Review of Systems: ROS per HPI, all other systems reviewed and negative Physical Exam Constitutional: + thin and + frail appearing Vitals as above Eyes: PERRL, conjunctivae normal, anicteric sclerae ENMT: Ears: no external ear abnormality Nose: no external nose abnormality Mouth: + poor dentition Respiratory: normal respiratory effort, lungs clear to auscultation Cardiovascular: Rate/Rhythm: regular rate and regular rhythm Vessels: normal peripheral pulses Extremities: no edema Gastrointestinal (Abdomen): normal bowel sounds, soft, nontender, no hepatosplenomegaly Musculoskeletal: no cyanosis or clubbing, extremities motor strength 5/5 Extremities: + hand abnormality (Arthritic changes noted bilateral hands) Skin: no rashes, warm and dry Neurologic: PERRL, EOMI, accommodation nl, no face palsy, no dysarthria Psychiatric: Orientation: alert and oriented x 3 Apperance: + disheveled Affect: + anxious affect Results & Data Vital Signs (Past 12 Hours) Vital Signs Temp Pulse Pulse Resp BP BP Pulse Ox 04/15/19 18:15 36.9 C 78 80 18 120/66 97 04/15/19 15:03 73 20 157/83 H 96 04/15/19 13:44 36.8 C 75 20 120/84 99 Laboratory Results Short CBC 04/15/19 Range/Units 14:50 WBC 6.63 (4.8-10.8) K/uL Hgb 13.5 (12.0-16.0) g/dL Hct 42.4 (37-47) % Plt Count 252 (130-400) K/uL BMP 04/15/19 04/15/19 04/15/19 14:50 18:37 20:13 Sodium 142 142 Potassium 4.0 TNP 4.6 Chloride 109 H 110 H Carbon Dioxide 26 27 BUN 34 H 35 H Creatinine 1.32 H 1.74 H D Glucose 89 102 H Calcium 10.5 H 10.1 Cardiac Enzymes 04/15/19 04/15/19 Range/Units 14:50 20:13 Troponin I 0.182 H* 0.171 H* (0-0.045) ng/ml Liver Function 04/15/19 04/15/19 04/15/19 Range/Units 14:50 18:37 20:13 Total Bilirubin 0.3 0.4 (0.2-1) mg/dl AST 18 TNP 14 L (15-37) U/L ALT 20 21 (12-78) U/L Alkaline Phosphatase 102 101 (45-117) U/L Albumin 3.8 3.5 (3.4-5.0) gm/dl Urine 04/15/19 Range/Units 15:00 Urine Color Yellow Urine Appearance Clear (Clear) Urine pH 6.5 (4.5-7.5) Ur Specific [place] 1.015 (1.000-1.030) Urine Protein Negative (Negative) Urine Glucose (UA) Negative (Negative) Diagnostic Findings HEAD CT IMPRESSION: No acute intracranial abnormality. CXR IMPRESSION: Chronic change. Emphysematous change. No acute process. Code Status & VTE Plan VTE Prophylaxis Plan VTE Prophylaxis will be ordered: Yes Supervising Physician Co-Signing Physician Notes Pt was seen and examined. Agreed with Mitra MANRIQUEZ exam, assessment and plan. 78 yo male with PMH of bipolar, CKD stage 4, hypothyroidism presents to the ED for evaluation of dizziness. Pt said that she had dizziness for year, but in the last 2 days symptoms worsening. She is on medications that can cause increase dizziness. CT head showed no acute intracranial abnormality. Troponin on admission elevated. Denies any chest pain, palpitation. EKG on admission shown T wave flattening in the inferior and V4 through V6 leads, T wave inversion in lead V3. Will trend troponin. if Troponin continues to rise, will start on heparin drip. Check Echo in the morning. Cardiology consult. Continue monitor closely. MD Jhonathan
[2019-04-15 20:54] LABS: INR 1.1 (0.9-1.1); Prothrombin Time 11.2 Seconds (9.0-12.0)
[2019-04-15] MEDS ORDERED: lamoTRIgine 100 MG TAB PO SCH (21:00)
[2019-04-15] MEDS: NICOTINE 21 MG/24 HR TDSY TD SCH (21:11)
[2019-04-15] MEDS: GABAPENTIN 100 MG CAP PO SCH (21:13)
[2019-04-15] MEDS: HEPARIN SOD 5,000 UNIT/0.5 ML VIAL SQ SCH (21:13)
[2019-04-15] MEDS: CALCIUM 600MG + VIT D 400 IU TAB PO SCH (21:13)
[2019-04-15] MEDS: ACETAMINOPHEN 325 MG TAB PO PRN (21:17)
[2019-04-16] MEDS ORDERED: GABAPENTIN 100 MG CAP PO STA (00:23)
[2019-04-16 02:43] LABS: Hematocrit (blood only) 38.6 % (37-47); Hemoglobin 12.5 g/dL (12.0-16.0); Mean Corpuscular Hgb Conc 32.4 g/dL (32-36); Mean Corpuscular Volume 95.1 fL (80-100); Mean Platelet Volume 9.8 fL (7.4-10.4); Platelet Count 241 K/uL (130-400); RDW Coefficient of Variation 13.3 % (11.5-14.5); RDW Standard Deviation 46.5 fL (36.4-46.3); Red Blood Count 4.06 M/uL (4.2-5.4); White Blood Count 5.64 K/uL (4.8-10.8)
[2019-04-16 02:59] LABS: BUN Creatinine Ratio 25.4 (10-20); Calcium 9.3 mg/dl (8.5-10.1); Est GFR (African American) 36.5; Est GFR (Non-African American) 31.5; Potassium 4.5 mmol/L (3.5-5.1)
[2019-04-16 03:22] LABS: Troponin I 0.175 ng/ml (0-0.045)
[2019-04-16] MEDS: SODIUM CHLORIDE 0.9% 1000ML 1,000 ML IV SCH ×3 (03:55→23:10)
[2019-04-16 06:00] LABS: Estimated Average Glucose 120 mg/dl; Hemoglobin A1C 5.8 % (4.5-5.6)
[2019-04-16] MEDS: HEPARIN SOD 5,000 UNIT/0.5 ML VIAL SQ SCH ×3 (06:20→21:11)
[2019-04-16] MEDS: LEVOTHYROXINE SODIUM 88 MCG TABLET PO SCH (06:20)
[2019-04-16] MEDS: DICLOFENAC SOD 1% GEL 100 GM TUBE EXT PRN (06:21)
[2019-04-16] MEDS: CEROVITE ADV FORMULA TAB PO SCH (07:42)
[2019-04-16] MEDS: NICOTINE 21 MG/24 HR TDSY TD SCH (07:43)
[2019-04-16] MEDS ORDERED: lamoTRIgine 25 MG TAB PO SCH (09:00)
[2019-04-16] MEDS: lamoTRIgine 25 MG TAB PO SCH ×2 (09:28→21:10)
[2019-04-16] MEDS: ACETAMINOPHEN 325 MG TAB PO PRN (12:13)
[2019-04-16] MEDS: FOLIC ACID 1 MG TAB PO SCH (12:14)
--- NOTE | 2019-04-16 18:49 | Hospitalist Progress Note ---
Date of Service April 16, 2019 Assessment & Plan (1) Orthostasis: Positive Orthostasis at time of admission Ongoing chronic dizziness Recheck Orthostasis Continue IV fluids Polypharmacy (fluvoxamine, diazepam, Ambien, gabapentin) could be contributing to dizziness hold fluvoxamine, diazepam, Ambien (patient has not been routinely taking these medications as she reports they make her feel dizzy and do not help her mood) Needs outpatient follow up with Psychiatrist (2) Elevated troponin: Mildly elevated ECHO: Left ventricle wall motion is normal Planned for Stress test in AM Cardiology Consulted TSH: normal (3) CKD (chronic kidney disease), stage IV: baseline creat runs in the low to mid ones Ct at baseline Monitor renal function (4) Bipolar disorder: Continue Lamictal Hold diazepam, fluvoxamine as above (5) Hypothyroidism: TSH:Normal Continue levothyroxine (6) Neuropathy: Continue gabapentin Unexplained Weight loss BMI: 15.5 Work up as outpatient (7) DVT prophylaxis: SQ heparin Subjective Patient is seen and examined at bedside Complains of dizziness, tiredness Denies any chest pain or shortness of breath Reports occipital headache this morning Discussed with cardiology today Review of Systems Review of Systems: All systems reviewed & are unremarkable except as noted in HPI & below Physical Exam Physical Exam: Physical Exam: Vitals signs as noted above General Appearance:Thin, Frail, No apparent distress Head: normocephalic, Atraumatic Eyes: normal inspection, EOMI Neck: supple, Trachea midline Respiratory/Chest: Decreased breath sounds, CTA Cardiovascular: S1, S2, No murmur Abdomen/GI:Soft, Non tender, Bowel sounds present Extremities/Musculoskelatal:normal inspection, no edema, +Arthritic changes hands Neurologic/Psych:AAOX3, grossly no focal neurological deficits Skin: normal color, warm Results & Data Vital Signs (Past 12 Hours) Vital Signs Temp Pulse Resp BP Pulse Ox 04/16/19 15:30 37.0 C 20 95 04/16/19 11:21 36.5 C 80 20 157/85 H 96 Laboratory Results Short CBC 04/16/19 Range/Units 01:33 WBC 5.64 (4.8-10.8) K/uL Hgb 12.5 (12.0-16.0) g/dL Hct 38.6 (37-47) % Plt Count 241 (130-400) K/uL BMP 04/15/19 04/15/19 04/16/19 18:37 20:13 01:33 Sodium 142 141 Potassium TNP 4.6 4.5 Chloride 110 H 109 H Carbon Dioxide 27 29 BUN 35 H 39 H Creatinine 1.74 H D 1.55 H Glucose 102 H 85 Calcium 10.1 9.3 Cardiac Enzymes 04/15/19 04/16/19 Range/Units 20:13 01:33 Troponin I 0.171 H* 0.175 H* (0-0.045) ng/ml Liver Function 04/15/19 04/15/19 Range/Units 18:37 20:13 Total Bilirubin 0.4 (0.2-1) mg/dl AST TNP 14 L ALT 21 (12-78) U/L Alkaline Phosphatase 101 (45-117) U/L Albumin 3.5 (3.4-5.0) gm/dl
--- NOTE | 2019-04-16 18:59 | Consultation Report ---
DATE OF CONSULTATION: 04/16/2019 CARDIOLOGY CONSULTATION REFERRING PHYSICIAN: MITRA Ortiz. PRIMARY CARE PHYSICIAN: Aries Blake DO. INDICATIONS: Dizziness, lightheadedness, weakness. HISTORY OF PRESENT ILLNESS: The patient is a complex 78-year-old female whose past history includes chronic obstructive lung disease, stage IV chronic renal insufficiency, status post left nephrectomy, urethral carcinoma, bipolar disorder, chronic dizziness and orthostasis with past hospitalization in multiple facilities including [facility] in 04/2018. The patient presents this admission having presented yesterday due to sensation of profound fatigue to the urgent care facility complaining of dizziness, chronic left shoulder pain, arthritis and nausea. Symptoms have been worsening over the past 1 month's time. The patient was also complaining of chest and shoulder pain and was referred to the Emergency Room due to complaints. On initial evaluation, EKG revealed no acute abnormalities. Troponin was mildly elevated on broad panel laboratory testing. There is evidence of worsening renal insufficiency and orthostasis on exam. She is referred now for further evaluation. The patient notes no overt fevers or chills. Has fair oral intake. Notes no tachypalpitations. Notes no melena or hematochezia or bleeding difficulties. Has chronic difficulties with urinary infections and urinary urgency and frequency. Notes a possible temperature on the day prior to admission. REVIEW OF SYSTEMS: Otherwise negative. ALLERGIES: LISTED BACLOFEN AND PENICILLIN. MEDICATIONS: Prior to admission were per list, acetaminophen, calcium 600 plus D, diazepam 2 mg per day p.r.n., folic acid 1 mg per day, gabapentin 100 mg at bedtime, Lamictal 25 p.o. daily, levothyroxine 88 mcg p.o. daily, CBD cream and oils, multivitamin per day. PAST SURGICAL HISTORY: Notable for prior D and C, left nephrectomy in 2010, partial hysterectomy, left knee arthroplasty in 2008. FAMILY HISTORY: Positive for heart disease in aunts. Mother had a history of breast cancer. Father prostate cancer. SOCIAL HISTORY: The patient is a 10 cigarettes per day smoker, uses no alcoholic beverages. PHYSICAL EXAMINATION: GENERAL: The patient is a thin, cachectic-appearing female, currently denying acute distress but notes dizziness on standing. VITAL SIGNS: Heart rate is 80, blood pressure is 157/85 with mild lability to blood pressures. HEENT: Normocephalic, atraumatic. Nares without discharge. Throat revealed fair dentition only. NECK: Thin. There is no distinct jugular venous distention. LUNGS: Notable for diminished breath sounds with few scattered crackles at the right base. Few wheezes on forced inspiration. CHEST: Reveals palpable MediPort in the chest. CARDIOVASCULAR: Regular with normal S1, S2, less than grade 1/6 systolic murmur at the apex and lower left sternal border. There are no diastolic murmurs. No S3 gallop. ABDOMEN: Soft. There is no palpable hepatosplenomegaly. EXTREMITIES: Without cyanosis or clubbing. There is no peripheral edema. There are intact distal pulses. There is significant muscle wasting. NEUROLOGIC: The patient is alert, answering questions appropriately. DATA: White cell count is 5.6, hemoglobin is 12.5, hematocrit 38.6. Sodium on presentation was 142 with potassium of 4.6, chloride 110, bicarbonate 27, creatinine 1.7, glucose of 102. Hemoglobin A1c was 5.8, calcium level is 10.1. AST and ALT were normal. Troponins since admission were elevated, but flat at 0.18, 0.17 and 0.17. Cholesterol was 196 with an LDL of 100 and HDL of 67. TSH was 3.8. Chest x-ray revealed no infiltrate or edema. EKG on serial testing revealed normal sinus rhythm with normal tracings x2. Echocardiogram demonstrates normal left ventricular systolic function without wall motion abnormality. There is mild left ventricular hypertrophy and moderate thickening of the mitral valve leaflets with moderate mitral and mild tricuspid insufficiency. IMPRESSION: A 78-year-old female presents with ongoing complaints of weakness, fatigue and clinical evidence of dehydration and orthostasis. Troponins are elevated likely on the basis of illness and chronic kidney disease. EKGs, echocardiogram and flat pattern of the troponin suggest nonischemic origin. PLAN: Would consider a dobutamine stress echocardiography to further qualify in the next day's time but would continue hydration and treatment of underlying processes. Poor p.o. intake, multiple medications, possible underlying infection. The patient has an indwelling nonfunctional MediPort, would recommend blood cultures given its present and ongoing subacute processes. EDUARDD
[2019-04-16] MEDS: GABAPENTIN 100 MG CAP PO SCH (21:10)
[2019-04-16] MEDS: CALCIUM 600MG + VIT D 400 IU TAB PO SCH (21:11)
[2019-04-17] MEDS: DICLOFENAC SOD 1% GEL 100 GM TUBE EXT PRN ×2 (02:35→21:40)
[2019-04-17] MEDS: HEPARIN SOD 5,000 UNIT/0.5 ML VIAL SQ SCH ×3 (05:46→21:40)
[2019-04-17] MEDS: LEVOTHYROXINE SODIUM 88 MCG TABLET PO SCH (05:47)
[2019-04-17 07:07] LABS: Hematocrit (blood only) 38.9 % (37-47); Hemoglobin 13.1 g/dL (12.0-16.0); Mean Corpuscular Hgb Conc 33.7 g/dL (32-36); Mean Corpuscular Volume 92.6 fL (80-100); Mean Platelet Volume 9.6 fL (7.4-10.4); Platelet Count 220 K/uL (130-400); RDW Coefficient of Variation 13.2 % (11.5-14.5); RDW Standard Deviation 45.1 fL (36.4-46.3); White Blood Count 5.07 K/uL (4.8-10.8)
[2019-04-17 07:47] LABS: BUN Creatinine Ratio 21.8 (10-20); Calcium 9.2 mg/dl (8.5-10.1); Creatinine Clr Calc Pharmacy 26.3 ml/min; Est GFR (African American) 50.8; Est GFR (Non-African American) 43.8; Potassium 4.1 mmol/L (3.5-5.1)
[2019-04-17] MEDS: CEROVITE ADV FORMULA TAB PO SCH (08:34)
[2019-04-17] MEDS: NICOTINE 21 MG/24 HR TDSY TD SCH (08:34)
[2019-04-17] MEDS: lamoTRIgine 25 MG TAB PO SCH ×2 (08:35→19:52)
[2019-04-17] MEDS: SODIUM CHLORIDE 0.9% 1000ML 1,000 ML IV SCH ×2 (09:08→21:39)
[2019-04-17] MEDS: FOLIC ACID 1 MG TAB PO SCH (12:41)
[2019-04-17] MEDS ORDERED: DOBUTamine HCL 12.5 MG/ML 20 ML VIAL IV ONE (14:02)
[2019-04-17] MEDS ORDERED: METOPROLOL TARTRATE 1 MG/ML VIAL IV ONE (14:02)
[2019-04-17] MEDS ORDERED: ATROPINE SULFATE 0.1 MG/ML 10ML SYR IV ONE (14:02)
--- NOTE | 2019-04-17 15:36 | Cardiology Progress Note ---
Date of Service April 17, 2019 Assessment & Plan (1) Orthostasis: Patient presented with signs and symptoms of general dehydration. Renal insufficiency and symptoms of improved with IV hydration (2) Elevated troponin: Elevated likely due to renal insufficiency cardiac evaluation negative normal EKGs LV systolic function and normal stress test (3) CKD (chronic kidney disease), stage IV: Subjective Patient seen and examined, chart medications reviewed. Feels better today up in the room slightly. No overt orthostasis demonstrated still complains of dizziness and feeling weak. No chest pains no tachypalpitations no melena hematochezia dysuria hematuria Review of Systems Review of Systems: As per HPI Physical Exam Constitutional: + thin and + cachectic Eyes: PERRL, conjunctivae normal, anicteric sclerae ENMT: external ear and nose normal, oropharynx normal Neck: trachea midline, no thyromegaly Respiratory: Mildly diminished breath sound Cardiovascular: Rate/Rhythm: regular rate and regular rhythm Heart Sounds: normal S1 and normal S2; no murmur Palpation: normal PMI Vessels: + JVD Gastrointestinal (Abdomen): normal bowel sounds, soft, nontender, no hepatosplenomegaly Musculoskeletal: no cyanosis or clubbing, extremities motor strength 5/5 Skin: no rashes, warm and dry Results & Data Vital Signs (Past 12 Hours) Vital Signs Temp Pulse Pulse Resp BP Pulse Ox 04/17/19 07:34 62 04/17/19 07:18 36.5 C 71 16 145/69 H 95 Laboratory Results Laboratory Results - last 24 hr 04/17/19 04/17/19 06:56 06:56 WBC 5.07 RBC 4.20 Hgb 13.1 Hct 38.9 MCV 92.6 MCH 31.2 MCHC 33.7 RDW Std Deviation 45.1 RDW Coeff of Margarito 13.2 Plt Count 220 MPV 9.6 Sodium 139 Potassium 4.1 Chloride 112 H Carbon Dioxide 23 Anion Gap 4.0 BUN 26 H Creatinine 1.18 D Est Cr Clr Drug Dosing 26.3 Est GFR ( Amer) 50.8 Est GFR (Non-Af Amer) 43.8 BUN/Creatinine Ratio 21.8 H Glucose 81 Calcium 9.2 Diagnostic Findings Stress echocardiography, dobutamine 04/17/2019 Patient received 40 mcg/kg/min of dobutamine he achieved greater than 85% expected maximal heart without cardiac symptoms. Resting EKG and stress EKG were normal there are no arrhythmias induced LV systolic function is normal at rest and stress there is no evidence of myocardial ischemia or prior myocardial infarction.
--- NOTE | 2019-04-17 18:10 | Hospitalist Progress Note ---
Date of Service April 17, 2019 Assessment & Plan (1) Orthostasis: Positive Orthostasis at time of admission Ongoing chronic dizziness Rechecked Orthostatics--normalized with IV fluids Decrease IV fluids Polypharmacy (fluvoxamine, diazepam, Ambien, gabapentin) could be contributing to dizziness hold fluvoxamine, diazepam, Ambien (patient has not been routinely taking these medications as she reports they make her feel dizzy and do not help her mood) Needs outpatient follow up with Psychiatrist Dizziness improved with IV fluids (2) Elevated troponin: Mildly elevated ECHO: Left ventricle wall motion is normal Stress test: no evidence of myocardial ischemia or prior myocardial infarction. Appreciate Cardiology Input TSH: normal (3) CKD (chronic kidney disease), stage IV: baseline creat runs in the low to mid ones Ct at baseline Monitor renal function (4) Bipolar disorder: Continue Lamictal Hold diazepam, fluvoxamine as above (5) Hypothyroidism: TSH:Normal Continue levothyroxine (6) Neuropathy: Continue gabapentin Unexplained Weight loss BMI: 15.5 Work up as outpatient (7) DVT prophylaxis: SQ heparin Disposition: PT/OT prior to discharge Subjective Patient is seen and examined at bedside States feeling tired Has stress test today--no evidence of Ischemia Dizziness resolved Denies any chest pain or shortness of breath Discussed with cardiology today Offers no other complaints Review of Systems Review of Systems: All systems reviewed & are unremarkable except as noted in HPI & below Physical Exam Physical Exam: Physical Exam: Vitals signs as noted above General Appearance:Thin, Frail, No apparent distress Head: normocephalic, Atraumatic Eyes: normal inspection, EOMI Neck: supple, Trachea midline Respiratory/Chest: Decreased breath sounds, CTA Cardiovascular: S1, S2, No murmur Abdomen/GI:Soft, Non tender, Bowel sounds present Extremities/Musculoskelatal:normal inspection, no edema, +Arthritic changes hands Neurologic/Psych:AAOX3, grossly no focal neurological deficits Skin: normal color, warm Results & Data Vital Signs (Past 12 Hours) Vital Signs Temp Pulse Pulse Resp BP Pulse Ox 04/17/19 07:34 62 04/17/19 07:18 36.5 C 71 16 145/69 H 95 Laboratory Results Short CBC 04/17/19 Range/Units 06:56 WBC 5.07 (4.8-10.8) K/uL Hgb 13.1 (12.0-16.0) g/dL Hct 38.9 (37-47) % Plt Count 220 (130-400) K/uL BMP 04/17/19 06:56 Sodium 139 Potassium 4.1 Chloride 112 H Carbon Dioxide 23 BUN 26 H Creatinine 1.18 D Glucose 81 Calcium 9.2
[2019-04-17] MEDS: CALCIUM 600MG + VIT D 400 IU TAB PO SCH (19:53)
[2019-04-17] MEDS: GABAPENTIN 100 MG CAP PO SCH (19:53)
[2019-04-18] MEDS: DICLOFENAC SOD 1% GEL 100 GM TUBE EXT PRN ×2 (04:20→11:34)
[2019-04-18] MEDS: LEVOTHYROXINE SODIUM 88 MCG TABLET PO SCH (04:20)
[2019-04-18] MEDS: HEPARIN SOD 5,000 UNIT/0.5 ML VIAL SQ SCH ×2 (05:29→13:32)
[2019-04-18] MEDS: ACETAMINOPHEN 325 MG TAB PO PRN (07:25)
[2019-04-18 08:13] LABS: BUN Creatinine Ratio 21.1 (10-20); Calcium 9.8 mg/dl (8.5-10.1); Creatinine Clr Calc Pharmacy 24.6 ml/min; Est GFR (African American) 47.4; Est GFR (Non-African American) 40.9; Potassium 4.2 mmol/L (3.5-5.1)
[2019-04-18] MEDS: lamoTRIgine 25 MG TAB PO SCH (08:24)
[2019-04-18] MEDS: NICOTINE 21 MG/24 HR TDSY TD SCH (08:24)
[2019-04-18] MEDS: CEROVITE ADV FORMULA TAB PO SCH (08:24)
[2019-04-18] MEDS: FOLIC ACID 1 MG TAB PO SCH (11:31)
--- NOTE | 2019-04-18 14:40 | Hospitalist Progress Note ---
Date of Service April 18, 2019 Assessment & Plan (1) Orthostasis: Positive Orthostasis at time of admission Ongoing chronic dizziness Rechecked Orthostatics--normalized with IV fluids Discontinue IV fluids Polypharmacy (fluvoxamine, diazepam, Ambien, gabapentin) could be contributing to dizziness hold fluvoxamine, diazepam, Ambien (patient has not been routinely taking these medications as she reports they make her feel dizzy and do not help her mood) Needs outpatient follow up with Psychiatrist--advised patient to follow-up with psych as outpatient Dizziness improved with IV fluids (2) Elevated troponin: Mildly elevated ECHO: Left ventricle wall motion is normal Stress test: no evidence of myocardial ischemia or prior myocardial infarction. Appreciate Cardiology Input TSH: normal (3) CKD (chronic kidney disease), stage IV: baseline creat runs in the low to mid ones Ct at baseline Monitor renal function (4) Bipolar disorder: Continue Lamictal Hold diazepam, fluvoxamine as above (5) Hypothyroidism: TSH:Normal Continue levothyroxine (6) Neuropathy: Continue gabapentin Unexplained Weight loss BMI: 15.5 Work up as outpatient (7) DVT prophylaxis: SQ heparin Disposition: PT/OT: Recommends to return home Plans to be discharged home today Subjective Patient is seen and examined at bedside Doing much better today Offers no complaints Evaluated by PT today--recommend to return home Discussed with cardiology today as well Dizziness resolved Denies any chest pain or shortness of breath Review of Systems Review of Systems: All systems reviewed & are unremarkable except as noted in HPI & below Physical Exam Physical Exam: Physical Exam: Vitals signs as noted above General Appearance:Thin, Frail, No apparent distress Head: normocephalic, Atraumatic Eyes: normal inspection, EOMI Neck: supple, Trachea midline Respiratory/Chest: Decreased breath sounds, CTA Cardiovascular: S1, S2, No murmur Abdomen/GI:Soft, Non tender, Bowel sounds present Extremities/Musculoskelatal:normal inspection, no edema, +Arthritic changes hands Neurologic/Psych:AAOX3, grossly no focal neurological deficits Skin: normal color, warm Results & Data Vital Signs (Past 12 Hours) Vital Signs Temp Pulse Pulse Resp BP BP Pulse Ox 04/18/19 14:16 98 04/18/19 11:20 36.9 C 70 20 127/69 97 04/18/19 07:58 36.8 C 68 18 123/78 98 04/18/19 07:29 61 04/18/19 04:11 36.5 C 70 18 108/54 L 96 Laboratory Results [facility] 04/18/19 07:10 Sodium 140 Potassium 4.2 Chloride 113 H Carbon Dioxide 22 BUN 26 H Creatinine 1.25 H Glucose 84 Calcium 9.8
--- NOTE | 2019-04-18 14:51 | Discharge Summary ---
Date of Service April 18, 2019 Admission HPI Per Admitting Provider 78-year-old male who presents to the ED for evaluation of dizziness. Patient reports she has chronic dizziness however it has been worse over the past couple of days. Patient is somewhat of a poor historian. She reports worsening dizziness with standing and activity. She also has chronic left shoulder pain which she attributes to arthritis. This is chronic and has been unchanged for the past 1 year. Patient reports one episode of chest pain a couple of days ago. She reports it was brief and only lasted for about 2 minutes. No specific causative or alleviating factors. She denies associated shortness of breath, diaphoresis, nausea. She has not had any syncopal events. No fevers or chills. She denies abdominal pain, vomiting, diarrhea. Reports her oral intake has been at baseline. Over the past 1 month, her psychiatrist has weaned her off Seroquel and started her on fluvoxamine and diazepam. Patient reports she has not been taking these medications because it makes her feel dizzy. She reports she has been taking the diazepam about every other day. Patient also takes Ambien very infrequently reports her last dose was 2 days ago. In the ED, patient was found to have positive orthostatic blood pressures. Initial troponin is 0.182, EKG shows T wave flattening in the inferior and V4 through V6 leads, T wave inversion in lead V3. Other labs are unremarkable. Patient was given IVF in the ED. Admission Exam Per Admitting Provider Constitutional: + thin and + frail appearing Vitals as above Eyes: PERRL, conjunctivae normal, anicteric sclerae ENMT: Ears: no external ear abnormality Nose: no external nose abnormality Mouth: + poor dentition Respiratory: normal respiratory effort, lungs clear to auscultation Cardiovascular: Rate/Rhythm: regular rate and regular rhythm Vessels: normal peripheral pulses Extremities: no edema Gastrointestinal (Abdomen): normal bowel sounds, soft, nontender, no hepatosplenomegaly Musculoskeletal: no cyanosis or clubbing, extremities motor strength 5/5 Extremities: + hand abnormality (Arthritic changes noted bilateral hands) Skin: no rashes, warm and dry Neurologic: PERRL, EOMI, accommodation nl, no face palsy, no dysarthria Psychiatric: Orientation: alert and oriented x 3 Apperance: + disheveled Affect: + anxious affect Principal Diagnosis Discharge Information Discharge Diagnosis Orthostatic hypotension Elevated Troponin Discharge Goals Decrease discomfort,Improve disease control, Improve function Discharge Activity Limitations Resume your previous activity Discharge Data Allergies Allergy/AdvReac Type Severity Reaction Status Date / Time Penicillins Allergy Mild RASH Verified 04/15/19 15:40 albuterol [From ProAir HFA] AdvReac Intermediate Dizziness Unverified 04/15/19 15:40 Consultations 04/15/19 18:15 Consult Cardiology Routine Procedures Performed CT head: No acute intracranial abnormality. CXR: Chronic change. Emphysematous change. No acute process. Stress echocardiography, dobutamine 04/17/2019 Patient received 40 mcg/kg/min of dobutamine he achieved greater than 85% expected maximal heart without cardiac symptoms. Resting EKG and stress EKG were normal there are no arrhythmias induced LV systolic function is normal at rest and stress there is no evidence of myocardial ischemia or prior myocardial infarction. Ordered Studies 04/15/19 14:10 CT head/brain wo con Stat Hospital Course (1) Orthostasis: Positive Orthostasis at time of admission Ongoing chronic dizziness Rechecked Orthostatics--normalized with IV fluids Discontinue IV fluids Polypharmacy (fluvoxamine, diazepam, Ambien, gabapentin) could be contributing to dizziness hold fluvoxamine, diazepam, Ambien (patient has not been routinely taking these medications as she reports they make her feel dizzy and do not help her mood) Needs outpatient follow up with Psychiatrist--advised patient to follow-up with psych as outpatient Dizziness improved with IV fluids (2) Elevated troponin: Mildly elevated ECHO: Left ventricle wall motion is normal Stress test: no evidence of myocardial ischemia or prior myocardial infarction. Appreciate Cardiology Input TSH: normal (3) CKD (chronic kidney disease), stage IV: baseline creat runs in the low to mid ones Ct at baseline Monitor renal function (4) Bipolar disorder: Continue Lamictal Hold diazepam, fluvoxamine as above (5) Hypothyroidism: TSH:Normal Continue levothyroxine (6) Neuropathy: Continue gabapentin Unexplained Weight loss BMI: 15.5 Work up as outpatient (7) DVT prophylaxis: SQ heparin Disposition: PT/OT: Recommends to return home Plans to be discharged home today Total Time Total Time Spent Total Time Spent (In Minutes): 26 minutes Total Time Includes: Examination of the Patient, Discharge Planning, Medication Reconciliation, Communication With Other Providers and Other Discharge Plan Discharge Items Patient Disposition: Home - Home Health Services Reason For Visit: ORTHOSTASIS Discharge Diagnosis: Orthostatic hypotension Elevated Troponin Discharge Goals: Decrease discomfort, Improve disease control and Improve function Activity: Resume your previous activity Exercise/Sports: Gradually increase as tolerated Non-emergency contact: Primary Care Provider and Psychiatrist Call non-emergency contact if: you have any medication questions, your symptoms worsen, your pain is not controlled, your pain is worsening, your pain is unusual for you, your pain is concerning for you and you have a fever Follow-up/Referrals: Aries Blake DO [Primary Care Provider] - Diet: Heart Healthy Addtl Provider Instructions: Follow-up with Dr. Patel on April 23, 2019 at 11:05 AM for primary care Services Follow-up with your psychiatrist in 2 weeks as recommended Seek immediate medical attention if your symptoms reoccur or worsen Prescriptions: New diclofenac sodium [Voltaren] 1 % Gel 1 % topical BID PRN (Reason: pain) Qty: 100 RF: 0 Continued gabapentin 100 mg capsule 100 mg PO HS Qty: 14 RF: 0 folic acid 1 mg Tablet 1 mg PO QDL RF: 0 Caltrate 600 + D 600 mg (1,500 mg)-800 unit Tablet,Chewable 1 tab PO HS RF: 0 acetaminophen [Tylenol] 325 mg Tablet 650 mg PO Q4H PRN (Reason: Pain) RF: 0 levothyroxine [Synthroid] 88 mcg tablet 88 mcg PO QAM RF: 0 lamotrigine [Lamictal] 25 mg tablet 25 mg PO DAILY RF: 0 Centrum 18-400 mg-mcg Tablet 1 tab PO QAM RF: 0 Medical Marijuana Cream 1 applic topical UD RF: 0 Medical Marijuana Oral [place] 1 spray PO TID RF: 0 diazepam 2 mg tablet 2 mg PO DAILY PRN (Reason: Anxiety) Qty: 0 RF: 0 Stand-Alone Forms: [facility] Discharge Orders: Discharge Order (Routine); Ordered 04/18/19 Ordered By: Jame Cosme Admission Data Admit Date/Time: 04/15/19 16:41 Attending Provider: Jame Cosme Admit Provider: Angela Ring Primary Care Provider: Aries Blake Other Providers: Sridhar Schuler ; Mariah Huang Service: Telemetry Other Interventions: Discharge Summary Assessment (RN) Last Done: 04/18/19 14:59 Pending Studies at Discharge: No DC Date/Time DO NOT enter until pt leaves facility: 04/18/19 15:43
== END 2019-04-18 15:43 | disposition home health service (06) ==
LOC: 2W 13:34 → ED 13:34 → SUATTDRO 16:41 → 2W 17:39

== ENCOUNTER 2020-08-12 03:03 | Observation (INO) ==
[2020-08-12] MEDS ORDERED: fentaNYL citrate 100 MCG/2 ML VIAL IV STA ×2 (03:28→04:32)
[2020-08-12] MEDS ORDERED: SODIUM CHLORIDE 0.9% 500 ML IV SCH (03:30)
--- NOTE | 2020-08-12 03:34 | Emergency Department Note ---
History of Present Illness General Chief complaint: Pain (Generalized) Time Seen by Provider: 08/12/20 03:21 History of Present Illness Maximum Pain Intensity: 10 This 80-year-old presents to the ER complaining of generalized pain Location: Generalized Quality: Achy Severity: Moderate Duration: Past few weeks Timing: Started a few weeks ago Context: Pain persisted and patient came in Modifying factors: better with rest; worse with activity Patient states Tylenol, OxyIR and tramadol do not help. Patient denies chest pain, dyspnea, abdominal pain, numbness, tingling, localized weakness, fall, head injury, neck pain, back pain. Patient states she lives alone by herself. Home Medications Home Medications Medication Instructions Recorded Confirmed Type Caltrate 600 plus D 1 tab PO BID 11/20/18 08/12/20 History levothyroxine 88 mcg PO DAILY 07/18/19 08/12/20 History acetaminophen [Tylenol Extra 500 mg PO QID PRN 02/18/20 08/12/20 History Strength] lamotrigine [Lamictal] 25 mg PO BID 08/12/20 08/12/20 History Allergies Allergy/AdvReac Type Severity Reaction Status Date / Time Penicillins Allergy Mild RASH Verified 08/12/20 03:29 albuterol [From ProAir HFA] AdvReac Intermediate Dizziness Verified 08/12/20 03:29 Past Med/Surg History Medical History Altered mental status Bipolar disorder Bladder cancer CKD (chronic kidney disease), stage IV CKD (chronic kidney disease), stage IV COPD (chronic obstructive pulmonary disease) COPD (chronic obstructive pulmonary disease) Dizziness History of kidney cancer Hypothyroidism Malignant tumor of kidney Malignant tumor of urinary bladder Neuropathy Osteoarthritis S/p nephrectomy Tobacco abuse Tobacco abuse Urothelial cancer (~2010) UTI (urinary tract infection) Surgical History H/O dilation and curettage H/O: hysterectomy History of partial hysterectomy Hx of total knee arthroplasty S/p nephrectomy "Left" Family History Aunt Heart disease [place] in her 50s Mother Breast cancer Father Prostate cancer Social History Smoking Status: Current every day smoker Tobacco Type: Cigarettes Cigarettes Per Day: 7; Second Hand Exposure: No; Hx Alcohol Use: No Hx Substance Use: Yes Last Used Substance: Days (ago) Last Used Substance Other:: states hasn't used in a month Substance Use Type Other:: Medical Marijua na Preferred Language: Arabic Communication Ability: Effective Visual Impairment: No Limitations Hearing Ability: Normal Database Programmer Required: No Beliefs That Will Affect Care: None marital status: / Current Living Situation: Alone Feels Safe at Home: Yes Review of Systems A total of 10 systems reviewed and were otherwise negative Physical Exam Vital Signs Vital Signs - 24 hr 08/12/20 03:09 08/12/20 03:40 08/12/20 03:56 Temperature 36.6 C Temperature Source Oral Pulse Rate 82 69 Pulse Rate from SpO2 Sensor 69 Respiratory Rate 18 20 Respiratory Effort / Characteristics Non-Labored Spontaneous Respiratory Depth Normal Respiratory Pattern Regular Blood Pressure 140/93 121/64 Blood Pressure Mean 108 72 Pulse Oximetry 98 96 96 Oxygen Delivery Method Room Air Room Air Sepsis Recent Fever Within 48 Hours No Sepsis New/Unexplained Change in Mental Status No Sepsis Action Taken by Nursing No Action Required 08/12/20 04:01 08/12/20 05:00 Temperature Temperature Source Pulse Rate 87 64 Pulse Rate from SpO2 Sensor 69 63 Respiratory Rate 20 19 Respiratory Effort / Characteristics Respiratory Depth Respiratory Pattern Blood Pressure 107/61 123/72 Blood Pressure Mean 72 76 Pulse Oximetry 97 97 Oxygen Delivery Method Sepsis Recent Fever Within 48 Hours Sepsis New/Unexplained Change in Mental Status Sepsis Action Taken by Nursing VITALS: Vitals are noted on the nurse's note and reviewed by myself. Vital signs stable. GENERAL: Elderly female yelling and asking for pain meds, in no acute distress, nondiaphoretic, well-developed well-nourished. SKIN: Capillary reflex less than 2 seconds. HEENT: Normocephalic. PERRLA. EOMI. Nares patent. Mucous membranes moist. Neck is supple without nuchal rigidity. HEART: Regular rate and rhythm LUNGS: Clear to auscultation bilaterally without wheezes, rales or rhonchi. No retractions or accessory muscle use. ABDOMEN: Positive bowel sounds x 4. Normal tympanic percussion. Soft, nontender, without masses or organomegaly. Steel sign negative. No guarding or rebound tenderness. MUSCULOSKELETAL: No gross musculoskeletal defects. NEURO: Patient was alert and oriented to person place and time. No focal neurological deficits. Course Administered Medications Discontinued Medications Fentanyl Citrate (Fentanyl Citrate 100 Mcg/2 Ml Vial) 50 mcg IV NOW STA Stop: 08/12/20 03:29 Last Admin: 08/12/20 03:56 Dose: 50 mcg Documented by: [id number] Fentanyl Citrate (Fentanyl Citrate 100 Mcg/2 Ml Vial) 50 mcg IV NOW STA Stop: 08/12/20 04:33 Last Admin: 08/12/20 05:01 Dose: 50 mcg Documented by: [id number] Sodium Chloride (Nss) 500 mls @ 999 mls/hr IV .Q31M EDUARDO Stop: 08/12/20 04:00 Last Infusion: 08/12/20 04:27 Dose: 0 mls/hr Documented by: [id number] Admin: 08/12/20 03:56 Dose: 999 mls/hr Documented by: [id number] Medical Decision Making Medical Records Attestation: I reviewed the patient's medical records. Home Medications Current Medication List: was personally reviewed by me Laboratory Data Attestation: I reviewed the patient's lab results. Result diagrams: 08/12/20 03:46 08/12/20 03:46 Lab Results 08/12/20 08/12/20 08/12/20 Range/Units 03:46 03:46 04:35 WBC 4.90 (4.8-10.8) K/uL RBC 4.12 L (4.2-5.4) M/uL Hgb 13.0 (12.0-16.0) g/dL Hct 40.6 (37-47) % MCV 98.5 (80-100) fL MCH 31.6 (25-34) pg MCHC 32.0 (32-36) g/dL RDW Std Deviation 47.9 H (36.4-46.3) fL RDW Coeff of Margarito 13.3 (11.5-14.5) % Plt Count 288 (130-400) K/uL MPV 9.5 (7.4-10.4) fL Immature Gran % (Auto) 0.0 % Neut % (Auto) 59.6 % Lymph % (Auto) 33.3 % Harris % (Auto) 4.7 % Eos % (Auto) 1.8 % Baso % (Auto) 0.6 % Neut # (Auto) 2.92 (1.4-6.5) K/uL Lymph # (Auto) 1.63 (1.2-3.4) K/uL Harris # (Auto) 0.23 (0.11-0.59) K/uL Eos # (Auto) 0.09 (0-0.5) K/uL Baso # (Auto) 0.03 (0-0.2) K/uL Immature Gran # (Auto) 0.00 (0.00-0.02) K/uL Sodium 141 (136-145) mmol/L Potassium 4.6 (3.5-5.1) mmol/L Chloride 111 H (98-107) mmol/L Carbon Dioxide 26 (21-32) mmol/L Anion Gap 4.0 (3-11) BUN 30 H (7-18) mg/dl Creatinine 1.08 (0.6-1.2) mg/dl Est Cr Clr Drug Dosing 27.3 ml/min Est GFR ( Amer) 55.8 Est GFR (Non-Af Amer) 48.1 BUN/Creatinine Ratio 27.9 H (10-20) Glucose 89 (70-99) mg/dl Calcium 9.6 (8.5-10.1) mg/dl Total Bilirubin 0.3 (0.2-1) mg/dl AST 15 (15-37) U/L ALT 14 (12-78) U/L Alkaline Phosphatase 104 (45-117) U/L Total Creatine Kinase 80 (26-192) U/L Troponin I < 0.015 (0-0.045) ng/ml Total Protein 7.9 (6.4-8.2) gm/dl Albumin 3.9 (3.4-5.0) gm/dl Globulin 4.0 (2.5-4.0) gm/dl Albumin/Globulin Ratio 1.0 (0.9-2) TSH 30.300 H (0.300-4.500) uIu/ml Free T4 0.77 L (0.8-1.6) ng/dl Urine Color Yellow Urine Appearance Cloudy A (Clear) Urine pH 5.5 (4.5-7.5) Ur Specific [place] 1.017 (1.000-1.030) Urine Protein Trace H (Negative) Urine Glucose (UA) Negative (Negative) Urine Ketones Negative (Negative) Urine Blood Negative (Negative) Urine Nitrite Positive A (Negative) Urine Bilirubin Negative (Negative) Urine Urobilinogen Negative (Negative) Ur Leukocyte Esterase 1+ H (Negative) Urine WBC (Auto) 10-30 H (0-5) /hpf Urine RBC (Auto) 0-4 (0-4) /hpf U Hyaline Cast (Auto) 1-5 (0-5) /lpf U Epithel Cells (Auto) 10-20 H (0-5) /lpf Urine Bacteria (Auto) 2+ H (Negative) Imaging Data Attestation: I personally reviewed and interpreted this imaging study as follows: Prescription Drug Monitoring [place] Drug Monitoring Program reviewed and findings noted below Prescription Drug Findings: Patient has a recent prescription of OxyIR and tramadol and Ambien. Blood Pressure Blood Pressure Findings: Normal blood pressure MDM Narrative Prior records/ancillary studies reviewed and summarized above. Nursing notes reviewed. Additional history obtained from nursing. The patient's history was concerning for chronic pain. Differential diagnosis: Etiologies such as drug-seeking behavior, metabolic, infection, hypo/hyperglycemia, electrolyte abnormalities, cardiac sources, intracerebral event, toxicologic, neurologic, as well as others were entertained. Physical examination: As above. ER treatment provided: IV Lock An order was placed for continuous cardiac monitoring. The monitor shows a rate of 60-100 with a sinus rhythm. IV fluids, fentanyl On reassessment the patient felt better. Diagnostics interpretation by me: ECG: Ordered for pain EKG: Normal sinus, normal intervals, no acute ST-T wave changes. Impression normal sinus rhythm interpreted myself I think arrhythmia is unlikely. EKG shows normal sinus rhythm with no interval abnormalities such as QT prolongation or WPW. There are no findings to suggest Brugada syndrome. Cardiac monitoring in the emergency department reveals no tachycardic or bradycardic dysrhythmia. Hypertrophic cardiomyopathy was considered but there are no clear historical elements pointing toward this. EKG is not suggestive. The QRS voltage is not extremely large and there are no suggestive Q waves. The labs revealed stable H&H. Negative troponin. Normal CPK Slightly elevated TSH [facility] [address] [place] [address] / Director: Paul Arcos M.D. Clinical Laboratory Report Name: ANNA LUA Acct: [id number] Status: [facility] 1940 [facility] [place]18[place]20 Age: 80 Sex: F Dis Date: Loc: Emergency Department Spec: [id number] Collected: 02/18/20 Received: 02/18/20 [facility] Dr: Enrrique Deras M.D. Source: Urine,Clean Catch OV Order: Ordered: Urine Culture Procedure Result Verified Site Urine Culture Final 02/20/20 Organism 1 Escherichia coli [place] Count >100,000 CFU/ml Sens Sensitivities to Follow E coli RX M.I.C. --- --------- Amikacin S <=16 Ampicillin R >16 Amp/Sul R >16/8 Cefazolin R >16 Cefepime S <=4 Cefotaxime S <=2 Cefoxitin S <=8 Ceftriaxone S <=1 Cefuroxime S <=4 Ciprofloxacin R >2 Ertapenem S <=1 Gentamicin S <=4 Imipenem S <=1 Levofloxacin R >4 Nitrofurantoin S <=32 Tobramycin S <=4 Trimeth/Sulfa S <=2/38 Pip/Tazo R >64 S = SENSITIVE I = INTERMEDIATE R = RESISTANT Imaging studies: Chest x-ray with no acute consolidation, pneumothorax or free of my interpretation Consultation: A consultation was placed with the hospitalist, Dr Story. The case was discussed and diagnostics were reviewed. The patient was evaluated in the ER for further treatment. Exam and history seem consistent with intractable pain and UTI. Last urine culture is sensitive to Rocephin. Patient is requesting admission. Medicine was consulted. Patient was given a few rounds of fentanyl. She is refusing Tylenol. She is chronic kidney disease. She is refusing OxyIR. Medicine will evaluate the patient. By the evaluation outlined above emergent etiologies such as electrolyte abnormalities, cardiac sources, intracerebral event, toxologic, neurologic, abnormalities blood glucose, metabolic, as well as others were deemed relatively unlikely. The pt informed about the findings as listed above. All questions were answered and pleased with the treatment. The chart was completed utilizing Dragon Speech voice recognition software. Grammatical errors, random word insertions, pronoun errors, and incomplete sentences are an occassional consequence of this system due to software limitations, ambient noise, and hardware issues. Any formal questions or concerns about the content, text, or information contained within the body of this dictation should be directly addressed to the physician pediatric physician assistant for clarification. Impression & Plan Intractable pain, Hypothyroidism, Acute UTI Discharge Plan Visit Data Chief Complaint: Pain (Generalized) ED Provider: Morales Hyatt ED Midlevel Provider: Kandace Hampton Discharge Problem: Intractable pain, Hypothyroidism, Acute UTI Patient Disposition: Being Evaluated by Hospitalist Condition: Fair Forms Stand Alone Forms: [facility] Prescriptions Prescriptions: No Action Caltrate 600 plus D 600 mg (1,500 mg)-800 unit Tablet,Chewable 1 tab PO BID RF: 0 lamotrigine [Lamictal] 25 mg tablet 25 mg PO BID RF: 0 levothyroxine 88 mcg Tablet 88 mcg PO DAILY RF: 0 acetaminophen [Tylenol Extra Strength] 500 mg Tablet 500 mg PO QID PRN (Reason: Pain) RF: 0 Referrals Referrals: [facility] [Primary Care Provider] -
[2020-08-12 03:57] LABS: Basophils # (auto) 0.03 K/uL (0-0.2); Basophils % (auto) 0.6 %; Eosinophils # (auto) 0.09 K/uL (0-0.5); Eosinophils % (auto) 1.8 %; Hematocrit (blood only) 40.6 % (37-47); Lymphocytes # (auto) 1.63 K/uL (1.2-3.4); Lymphocytes % (auto) 33.3 %; Mean Corpuscular Hemoglobin 31.6 pg (25-34); Mean Corpuscular Volume 98.5 fL (80-100); Mean Platelet Volume 9.5 fL (7.4-10.4); Monocytes # (auto) 0.23 K/uL (0.11-0.59); Monocytes % (auto) 4.7 %; Neutrophils # (auto) 2.92 K/uL (1.4-6.5); Neutrophils % (auto) 59.6 %; Platelet Count 288 K/uL (130-400); RDW Coefficient of Variation 13.3 % (11.5-14.5); RDW Standard Deviation 47.9 fL (36.4-46.3); Red Blood Count 4.12 M/uL (4.2-5.4)
[2020-08-12 04:15] LABS: Alanine Aminotransferase 14 U/L (12-78); Albumin Level 3.9 gm/dl (3.4-5.0); Aspartate Aminotransferase 15 U/L (15-37); BUN Creatinine Ratio 27.9 (10-20); Blood Urea Nitrogen 30 mg/dl (7-18); Calcium 9.6 mg/dl (8.5-10.1); Carbon Dioxide 26 mmol/L (21-32); Chloride 111 mmol/L (98-107); Creatinine Clr Calc Pharmacy 27.3 ml/min; Est GFR (African American) 55.8; Est GFR (Non-African American) 48.1; Glucose 89 mg/dl (70-99); Potassium 4.6 mmol/L (3.5-5.1); Sodium 141 mmol/L (136-145)
[2020-08-12 04:26] LABS: Alkaline Phosphatase 104 U/L (45-117); Bilirubin,Total 0.3 mg/dl (0.2-1); Creatine Kinase 80 U/L (26-192); Total Protein 7.9 gm/dl (6.4-8.2); Troponin I < 0.015 ng/ml (0-0.045)
[2020-08-12 04:38] LABS: T4 Free Thyroxine 0.77 ng/dl (0.8-1.6)
[2020-08-12 04:58] LABS: Appearance Urine Cloudy (Clear); Bacteria Urine Automated 2+ (Negative); Bilirubin Urine Negative (Negative); Blood Urine Negative (Negative); Color Urine Yellow; Glucose Urine UA Negative (Negative); Ketones Urine Negative (Negative); Leukocyte Esterase Urine 1+ (Negative); Nitrite Urine Positive (Negative); Protein Urine Trace (Negative); RBC Urine Automated 0-4 /hpf (0-4); Specific Gravity Urine 1.017 (1.000-1.030); Urobilinogen Urine Negative (Negative); pH Urine 5.5 (4.5-7.5)
[2020-08-12] MEDS ORDERED: cefTRIAXone SODIUM 1,000 MG/50 ML BAG IV STA (05:25)
--- NOTE | 2020-08-12 06:30 | History and Physical Report ---
DATE OF ADMISSION: 08/12/2020 CHIEF COMPLAINT: Generalized pain. HISTORY OF PRESENT ILLNESS: An 80-year-old female with past medical history significant for hypothyroidism, hyperlipidemia, COPD, severe malnutrition, anemia due to vitamin B12 deficiency, chronic kidney disease stage III, female stress incontinence, history of UTIs, history of osteoarthritis, osteoporosis, bipolar disorder with depression, history of kidney cancer, bladder cancer, status post left nephrectomy, ambulatory dysfunction. The patient lives alone at home. She ambulates with help of walker. The patient was admitted to [facility] for depression and suicidal ideation. At that time, she was discharged on Seroquel, Lamictal, and Zoloft. The patient says recently she fell and she was in [facility] and she was discharged to rehab and stayed there for about 10-11 days and got discharged on 07/31/2020 to back home. She says she is currently only taking Lamictal because Zoloft and Seroquel did not agree with her and Lamictal is the only medicine she also got in the rehab too. She always has chronic pain from her osteoarthritis, but last few days it got worse. She has pain all over the body, her belly hurts, her chest hurts, her head aches. She states she has pain in the groins and shooting pain to the legs. That is the reason she came to the ER today. Denies any fever, chills. Denies any cough. Sometimes she gets short of breath. She says she has some runny nose. Denies any sore throat. She says she swallows food okay. Very hard of hearing. She says she can see some spots in the eyes, but that is going on for some time. No nausea. Normal bowel and bladder movements. Currently resting comfortably and hemodynamically stable. Labs were unremarkable except for elevated TSH and low free T4. Urinalysis positive. Chest x-ray unremarkable. ALLERGIES: PENICILLINS, ALBUTEROL. PAST MEDICAL HISTORY: As mentioned above. PAST SURGICAL HISTORY: Dilatation and curettage, partial hysterectomy, removal of the kidney and ureter on the left side, left hip fracture repair, small bowel endoscopy with biopsy, also ultrasound-guided breast biopsy. MEDICATIONS: Currently the patient is taking Tylenol as needed, calcium plus vitamin D 1 tablet b.i.d., Lamictal 25 mg b.i.d., levothyroxine 88 mcg p.o. daily. FAMILY HISTORY: Significant for father had prostate cancer, mother had bone cancer. SOCIAL HISTORY: , lives alone. Smokes average of half pack a day for last 15 years. No drug use. REVIEW OF SYSTEMS: As per HPI. Rest of review of systems are negative. PHYSICAL EXAMINATION: GENERAL: The patient is thin and frail, not in acute distress, very hard of hearing. VITAL SIGNS: Temperature 36.6, pulse 64, respiratory rate 19, blood pressure 123/72, oxygen 97% on room air. HEENT: No pallor, no icterus. NECK: No JVD. Supple. CARDIOVASCULAR: S1, S2 heard, regular rate and rhythm, no murmur, no gallop. RESPIRATORY SYSTEM: Normal AP diameter. No accessory muscle use. No wheezing, no crackles. ABDOMEN: Soft, bowel sounds present, nontender. No distention. CENTRAL NERVOUS SYSTEM: Cranial nerves II-XII grossly intact. Nonfocal. EXTREMITIES: No edema, no erythema. LABORATORY DATA: WBC 4.8, hemoglobin 13, hematocrit 40.6, platelets 288. Sodium 141, potassium 4.6, chloride 111, bicarbonate 26, BUN 30, creatinine 1.08, serum glucose 99, calcium 9.6, total bilirubin 0.3, AST 15, ALT 14, alkaline phosphatase 104, total creatinine kinase 80, troponin I less than 0.015. TSH 30.3, free T4 of 0.77. Urinalysis positive for nitrite, leukocyte esterase, and +2 bacteria. IMAGING DATA: Chest x-ray, no acute findings seen. EKG: Normal sinus rhythm with occasional PVCs at a rate of 75, no acute ST changes seen. ASSESSMENT AND PLAN: This is an 80-year-old female who presents with generalized pain. 1. Generalized pain. The patient has a history of osteoarthrosis. She says the pain is getting worse. Complains of all over pain, belly pain, chest pain, leg pain, and her urinalysis is positive, could be contributing. Empirically started on Rocephin. Pain control with oxycodone p.r.n. Because of history of cancer, may also get CT of the chest and CT of abdomen and pelvis. Observe in med tele. Follow serial enzymes. Initial troponin and EKG is negative. 2. Bipolar disorder with most recent episode of depression. She was in [facility] in February for suicidal ideation and depression. She was discharged on Lamictal, Zoloft, and Seroquel. The patient currently is taking only Lamictal, which will be continued and if any concerns, will consult psychiatry. 3. History of hypothyroidism, on Synthroid. Currently free T4 is low. We will repeat the labs. May need to adjust medication and follow up with the PCP. 4. History of kidney cancer, bladder cancer, status post left nephrectomy. 5. History of ambulatory dysfunction, uses walker at home. Will do PT, OT. 6. History of chronic obstructive pulmonary disease, not on any inhalers at home. We will place her on Combivent p.r.n. 7. Deep venous thrombosis prophylaxis, heparin subQ. 8. Disposition: Closely observe in the med tele. PT and OT prior to discharge. Social service to help with discharge planning. Level 1 full code. MTDD
[2020-08-12] MEDS ORDERED: IPRATROPIUM BROMIDE/ALBUTEROL respimat INH INH PRN (07:53)
[2020-08-12] MEDS ORDERED: NITROGLYCERIN SL 0.4 MG/TAB TAB SL PRN (07:53)
[2020-08-12] MEDS ORDERED: ALBUTEROL HFA 8 GM INHALER INH SCH (07:53)
[2020-08-12] MEDS ORDERED: ONDANSETRON INJ 2 MG/ML 2 ML VIAL IV PRN (07:53)
[2020-08-12] MEDS ORDERED: OXYCODONE HCL IR 5 MG TAB (IMMEDIATE RELEASE) PO PRN (07:53)
[2020-08-12] MEDS ORDERED: LEVOTHYROXINE SODIUM 88 MCG TABLET PO SCH (08:00)
--- NOTE | 2020-08-12 08:07 | XRay Report ---
XR chest 1V portable HISTORY: 80 years-old Female weakness acute weakness COMPARISON: Chest CT of same day, chest radiograph 02/18/2020 TECHNIQUE: Portable AP view of the chest FINDINGS: Left subclavian Uasdro-o-Udeq catheter, distal tip terminating in the brachiocephalic SVC confluence. Calcified plaque of the thoracic aorta. There is no pneumothorax, pleural effusion, airspace consoli dation or overt pulmonary edema. Mild emphysema. Degenerative changes of the shoulders and spine. IMPRESSION: Emphysema without acute process. ACT 112: Negative or not required by law. The above report was generated using voice recognition software. It may contain grammatical, syntax o r spelling errors. Electronically signed by: Rene Royal M.D. 08/12/2020 8:05 AM
[2020-08-12] MEDS ORDERED: INFLUENZA ADMINISTRATION CHARGE ONE (08:14)
[2020-08-12] MEDS ORDERED: INFLUENZA VACCINE HIGH DOSE 65+ 0.5 ML SYR IM ONE (08:14)
[2020-08-12] MEDS ORDERED: SODIUM CHLORIDE 0.9% 1000ML 1,000 ML IV SCH (08:15)
[2020-08-12] MEDS ORDERED: IPRATROPIUM BROMIDE HFA INHALER INH SCH (08:15)
[2020-08-12] MEDS ORDERED: IPRATROPIUM BROMIDE HFA INHALER INH PRN (08:16)
[2020-08-12] MEDS ORDERED: ALBUTEROL HFA 8 GM INHALER INH PRN (08:18)
--- NOTE | 2020-08-12 08:20 | CT Scan Report ---
CT chest wo con CLINICAL HISTORY: chest pain COMPARISON STUDY: 03/06/2018 CT DOSE: TECHNIQUE: CT of the thorax was performed from the thoracic inlet to the lung bases. Images are revi ewed in the axial, sagittal, and coronal planes. IV contrast was not administered for this examinatio n. A dose lowering technique was utilized adhering to the principles of ALARA. FINDINGS: Thyroid: Imaged portions of the thyroid gland are normal in appearance. Thoracic aorta: The thoracic aorta is normal in course and caliber, noting standard 3 vessel arch manas anders. Heart: The heart is normal in size. There is no significant pericardial effusion. There are coronary artery calcifications Lungs and pleural spaces: There are mild dependent atelectatic changes. There is right middle lobe at electasis. There is right upper lobe linear atelectasis/scarring. There are no airspace opacity suspi cious for pneumonia. There is a stable 4 mm subpleural right middle lobe pulmonary nodule. Mediastinum: There is a borderline enlarged 9 mm in short axis precarinal lymph node. Briana: There is no evidence of pathologic hilar adenopathy given the limitations of a noncontrast stud y. Axilla: There is stable subpectoral lymph nodes at the upper limits of normal in size. There is no de finitive axillary lymphadenopathy. There is distention of the subcutaneous scapular bursa. Upper abdomen: Partially visualized upper abdominal viscera is within normal limits. Skeletal structures: There are new midthoracic compression deformities when compared the preceding IMPRESSION: 1. New midthoracic compression deformities when compared the prior February 2018 study 2. Progressive distention of the left subscapular bursa, likely on an arthritic basis 3. No evidence of acute parenchymal consolidation ACT 112: Negative or not required by law. Electronically signed by: Sanchez Lloyd M.D. 08/12/2020 8:19 AM
--- NOTE | 2020-08-12 08:46 | CT Scan Report ---
ABDOMEN AND PELVIS CT WITHOUT CONTRAST CT DOSE: 474.67 mGy.cm HISTORY: Acute generalized chest and abdominal pain. History of malignant tumor of the kidney. abdomi nal pain TECHNIQUE: Multiaxial CT images of the abdomen and pelvis were performed without contrast. A dose lo wering technique was utilized adhering to the principles of ALARA. COMPARISON STUDY: Chest CT of same day, CT abdomen and pelvis 10/23/2017, chest CT 03/06/2018. FINDINGS: 3 mm solid nodule involves the lateral segment right middle lobe, unchanged from 03/06/2018. There is no pneumatosis or pneumoperitoneum. The study is limited without the use of IV contrast and mild marilee on artifact. Aortic annular and coronary artery calcifications. Diminutive spleen. Moderate generaliz ed pancreatic atrophy. Unremarkable adrenal glands. Mildly distended gallbladder. Unremarkable liver. Right kidney is unremarkable. Surgically absent left kidney. Unremarkable urinary bladder. Calcificat ions of the fundal uterus are suggestive of calcified fibroids. Extensive calcified plaque of the abd ominal aorta and iliac arteries. No new adenopathy. The previously described mildly enlarged retrocav al lymph node measures 8 mm, previously 1.3 cm. There is no bowel obstruction or bowel wall thickening. Moderate fecal retention. Normal appendix. No ascites or mesenteric inflammation. Mild generalized body wall edema. Intertrochanteric male with me dullary deann of the left femur. Surgical clips of the left hemipelvis. There is an acute versus subacu te mildly comminuted fracture of the right ischium with slight displacement involving a few anterior fracture fragments. Mild sclerosis involves the right inferior pubic ramus. Spinal stimulator device is noted with single lead noted anterior to the right sacrum. Remote T12 compression deformity. Lumba r levoscoliosis. IMPRESSION: 1. No acute intra-abdominal or intrapelvic abnormality. Please note however that the study is limited without the use of IV contrast. 2. Moderate fecal retention. No bowel obstruction or bowel wall thickening. 3. Acute versus subacute comminuted slightly displaced fracture of the right ischium with likely suba cute nondisplaced fracture of the right inferior pubic ramus. 4. Remote T12 compression deformity. 5. Surgically absent left kidney. 6. Additional findings as above. ACT 112: Negative or not required by law. The above report was generated using voice recognition software. It may contain grammatical, syntax o r spelling errors. Electronically signed by: Rene Royal M.D. 08/12/2020 8:45 AM
[2020-08-12] MEDS: HEPARIN SOD 5,000 UNIT/0.5 ML VIAL SQ SCH ×2 (08:52→20:59)
[2020-08-12] MEDS: CALCIUM 600MG + VIT D 400 IU TAB PO SCH ×2 (08:52→20:58)
[2020-08-12] MEDS: lamoTRIgine 25 MG TAB PO SCH ×2 (08:52→20:57)
[2020-08-12 08:54] LABS: Creatine Kinase 91 U/L (26-192); Magnesium 2.1 mg/dl (1.8-2.4); Phosphorus 2.5 mg/dl (2.5-4.9); Troponin I < 0.015 ng/ml (0-0.045)
[2020-08-12] MEDS: NICOTINE 7 MG/24 HR TDSY TD SCH (10:32)
[2020-08-12] MEDS: HYDROmorphone INJ 0.5 MG/0.5 ML SYR IV PRN ×2 (13:14→21:00)
[2020-08-12 14:21] LABS: Estimated Average Glucose 108 mg/dl; Hemoglobin A1C 5.4 % (4.5-5.6)
[2020-08-12 14:36] LABS: C Reactive Protein < 0.29 mg/dl (0-0.29); Troponin I < 0.015 ng/ml (0-0.045)
--- NOTE | 2020-08-12 16:39 | Hospitalist Progress Note ---
Date of Service August 12, 2020 Assessment & Plan (1) Generalized pain: -As per admission history on physical 08/12/2020 "An 80-year-old female with past medical history significant for hypothyroidism, hyperlipidemia, COPD, severe malnutrition, anemia due to vitamin B12 deficiency, chronic kidney disease stage III, female stress incontinence, history of UTIs, history of osteoarthritis, osteoporosis, bipolar disorder with depression, history of kidney cancer, bladder cancer, status post left nephrectomy, ambulatory dysfunction. The patient lives alone at home. She ambulates with help of walker. The patient was admitted to [facility] for depression and suicidal ideation. At that time, she was discharged on Seroquel, Lamictal, and Zoloft. The patient says recently she fell and she was in [facility] and she was discharged to rehab and stayed there for about 10-11 days and got discharged on 07/31/2020 to back home. She says she is currently only taking Lamictal because Zoloft and Seroquel did not agree with her and Lamictal is the only medicine she also got in the rehab too. She always has chronic pain from her osteoarthritis, but last few days it got worse. She has pain all over the body, her belly hurts, her chest hurts, her head aches. She states she has pain in the groins and shooting pain to the legs. That is the reason she came to the ER" -on my exam in the day time, the patient with miscellaneous reports of pain of shoulder and also that pain running down the legs -review of the Health system notes that patient had history of Intertrochanteric fracture of left hip and and that she had Fixation Left Femur Intramedullary Jorge by Dr. Skaggs on 07/19/2020 -the 08/12/[address] chest and CT abdomen/pelvis with multiple skeletal issues: Acute versus subacute comminuted slightly displaced fracture of the right ischium with likely subacute nondisplaced fracture of the right inferior pubic ramus; Remote T12 compression deformity; New midthoracic compression deformities when compared the prior February 2018 study, Progressive distention of the left subscapular bursa, likely on an arthritic basis -there does not appear to be an acute inflammatory process because ESR and CRP are normal -check PTH and vitamin D levels -patient has prn acetaminophen, prn oxycodone and prn dilaudid based on pain severity. also start scheduled gabapentin -consult requested from orthopedics and pain management History of ambulatory dysfunction -uses walker at home -will need PT/OT evaluations CKD (chronic kidney disease) History of kidney cancer, bladder cancer, status post left nephrectomy -Avoid nonsteroidal anti-inflammatory drugs if possible. possible Urinary Tract Infection -positive bacteria in UA, follow urine culture, continue IV ceftriaxone for now (2) Hypothyroidism: -outpatient Levothyroxine of 88 mcg daily -The TSH is every elevated between 30 to 38 with low free T4 of 0.77 -increase the levothyroxine to 125 mcg daily starting on 08/13/2020 -labs do not show muscle breakdown as creatinine kinase is normal Underweight with BMI 14.9 -tumbler plater consult, BOOST supplements (3) Bipolar disorder: Bipolar disorder with most recent episode of depression. history of neuropathic pain in the previous hospital records -She was in [facility] in February for suicidal ideation and depression. She was discharged on Lamictal, Zoloft, and Seroquel. -The patient currently is taking only Lamictal, which will be continued chronic obstructive pulmonary disease -not on any inhalers at home -on Combivent p.r.n. while in the hospital Deep venous thrombosis prophylaxis, heparin subQ. Admission and Anticipated Discharge Date Admission Date: August 12, 2020 Subjective on my exam in the day time, the patient with miscellaneous reports of pain of shoulder and also that pain running down the legs, but patient does not appear to be in acute distress. breathing on room air. no wheezing. no chest pain. no nausea. no vomiting/ she denies any problems with urination or with bowel movements Review of Systems Review of Systems: All systems reviewed & are unremarkable except as noted in Subjective Physical Exam Constitutional: + thin and cooperative Eyes: PERRL, conjunctivae normal, anicteric sclerae EOM intact bilaterally ENMT: external ear and nose normal, oropharynx normal Neck: normal visual inspection Respiratory: normal respiratory effort, lungs clear to auscultation Cardiovascular: Rate/Rhythm: + bradycardic Gastrointestinal (Abdomen): normal bowel sounds, soft, nontender, no hepatosplenomegaly Musculoskeletal: Head/Neck/Chest: normocephalic and head atraumatic Neurologic: PERRL, EOMI, accommodation nl, no face palsy, no dysarthria Psychiatric: A+Ox3, euthymic affect Results & Data Results & Data ([facility]) Vital Signs (Past 12 Hours) Vital Signs Temp Pulse Pulse Resp BP BP Pulse Ox 08/12/20 16:18 60 08/12/20 15:41 36.7 C 73 20 108/61 93 08/12/20 11:32 36.4 C L 66 20 136/76 97 08/12/20 09:00 68 08/12/20 08:01 36.8 C 68 16 152/82 H 98 08/12/20 07:10 67 20 131/64 97 08/12/20 06:30 64 15 142/77 H 98 08/12/20 06:01 71 16 127/72 96 08/12/20 05:00 64 19 123/72 97
[2020-08-12] MEDS ORDERED: TPN/PPN CONSULT PHARMACY STA (17:17)
--- NOTE | 2020-08-12 20:00 | Electrocardiogram Report ---
Test Reason : Blood Pressure : / mmHG Vent. Rate : 075 BPM Atrial Rate : 075 BPM P-R Int : 186 ms QRS Dur : 066 ms QT Int : 374 ms P-R-T Axes : 043 065 054 degrees QTc Int : 417 ms Sinus rhythm with occasional Premature ventricular complexes Septal infarct (cited on or before 18-FEB-2020) Abnormal ECG When compared with ECG of 18-FEB-2020 10:05, Premature ventricular complexes are now Present Questionable change in initial forces of Septal leads Confirmed by Ottoniel Mcginnis ([id number]) on 08/12/2020 7:59:52 PM Referred By: REFERRED SELF Confirmed By:Ottoniel Mcginnis
[2020-08-12] MEDS: GABAPENTIN 100 MG CAP PO SCH (20:58)
[2020-08-13] MEDS: HYDROmorphone INJ 0.5 MG/0.5 ML SYR IV PRN (04:17)
[2020-08-13] MEDS: LEVOTHYROXINE SODIUM 125 MCG TABLET PO SCH (05:48)
[2020-08-13 05:53] LABS: BUN Creatinine Ratio 26.1 (10-20); Calcium 9.6 mg/dl (8.5-10.1); Creatinine Clr Calc Pharmacy 23.1 ml/min; Est GFR (African American) 44.1; Est GFR (Non-African American) 38.1; Potassium 4.8 mmol/L (3.5-5.1)
[2020-08-13 06:51] LABS: Basophils # (auto) 0.04 K/uL (0-0.2); Basophils % (auto) 0.6 %; Eosinophils # (auto) 0.23 K/uL (0-0.5); Eosinophils % (auto) 3.2 %; Hematocrit (blood only) 40.4 % (37-47); Hemoglobin 12.6 g/dL (12.0-16.0); Immature Granulocytes # (auto) 0.02 K/uL (0.00-0.02); Immature Granulocytes % (auto) 0.3 %; Lymphocytes # (auto) 1.46 K/uL (1.2-3.4); Lymphocytes % (auto) 20.3 %; Mean Corpuscular Hemoglobin 31.6 pg (25-34); Mean Corpuscular Hgb Conc 31.2 g/dL (32-36); Mean Corpuscular Volume 101.3 fL (80-100); Mean Platelet Volume 9.9 fL (7.4-10.4); Monocytes # (auto) 0.53 K/uL (0.11-0.59); Monocytes % (auto) 7.4 %; Neutrophils % (auto) 68.2 %; Platelet Count 309 K/uL (130-400); RDW Coefficient of Variation 13.4 % (11.5-14.5); RDW Standard Deviation 50.3 fL (36.4-46.3); Red Blood Count 3.99 M/uL (4.2-5.4); White Blood Count 7.18 K/uL (4.8-10.8)
[2020-08-13] MEDS ORDERED: SODIUM CHLORIDE 0.9% 1000ML 1,000 ML IV SCH (07:30)
--- NOTE | 2020-08-13 08:46 | Electrocardiogram Report ---
Test Reason : Blood Pressure : / mmHG Vent. Rate : 073 BPM Atrial Rate : 073 BPM P-R Int : 194 ms QRS Dur : 074 ms QT Int : 364 ms P-R-T Axes : 079 078 063 degrees QTc Int : 401 ms Normal sinus rhythm Normal ECG When compared with ECG of 12-AUG-2020 03:40, Premature ventricular complexes are no longer Present Criteria for Septal infarct are no longer Present Confirmed by Braxton Clark ([id number]) on 08/13/2020 8:45:51 AM Referred By: REFERRED SELF Confirmed By:Braxton Clark
--- NOTE | 2020-08-13 08:57 | Pain Management Consultation ---
Date of Consultation August 13, 2020 Assessment & Plan (1) Generalized pain: 1. Every medication I have mentioned to her she states has not worked for her in the past. She does not recall trying Hydrocodone in the past so she is agreeable to try it. Medication ordered. 2. Could consider Cymbalta but would leave this medication to psychiatry's discretion given her treatment for bipolar disorder. 3. I have emphasized the importance for the patient to continue follow up with [facility] in [place] for chronic arthritis treatment. Patient no showed her last appointment and does not have a follow up scheduled. 4. No interventional procedures to offer the patient. Thank you for the consultation. History of Present Illness Reason for Consultation: chronic pain Attending Physician: Vadim Wilder MD History of Present Illness This is an 80 year old female that has been admitted to the [facility] for exacerbation of chronic arthritic pains. The pain has been worsening over the past 2 months. She reports pain in the neck, shoulders, hands, low back, chest, abdomen, and legs. Patient does have moderate osteoarthritis to which she does see Dr. Rivera and [facility] in [place]. She states that the last time she spoke with Dr. Rivera she was advised to take Tylenol for the pain. Patient has trialed Plaquenil by [facility] in [place] without relief so it was discontinued. She missed her last appointment with the arthritis group and has not rescheduled for another appointment. Patient states, "Dr Rivera didn't help me and nothing the [facility] does helps me." We discussed previous medications and all of which "didn't help me". Medications include Voltaren gel, Lidocaine patches, Tylenol, Aleve, Tramadol, Oxycodone, and IV Dilaudid. Gabapentin was offered but the patient refused as it caused shakiness in the past. Patient rates her pain 6/10 currently. She is unable to pick an area of worst pain. She does come from home and ambulates with a walker. She has been able to ambulate in the hospital with assistance. Pain Assessment Full Body Front + Back: 1. 2. 3. 4. 5. 6. 7. 8. 9. 10. 11. 12. 13[address] [facility] Combined Pain Scale: 6-Mod to Severe - Significant limitations of ADLs. Hard to do anything Allergies Allergy/AdvReac Type Severity Reaction Status Date / Time Penicillins Allergy Mild RASH Verified 08/12/20 03:29 albuterol [From ProAir HFA] AdvReac Intermediate Dizziness Verified 08/12/20 03:29 Home Medications Home Medications Medication Instructions Recorded Confirmed Type Caltrate 600 plus D 1 tab PO BID 11/20/18 08/12/20 History levothyroxine 88 mcg PO DAILY 07/18/19 08/12/20 History acetaminophen [Tylenol Extra 500 mg PO QID PRN 02/18/20 08/12/20 History Strength] lamotrigine [Lamictal] 25 mg PO BID 08/12/20 08/12/20 History Patient History Medical History Altered mental status Bipolar disorder Bladder cancer CKD (chronic kidney disease), stage IV CKD (chronic kidney disease), stage IV COPD (chronic obstructive pulmonary disease) COPD (chronic obstructive pulmonary disease) Dizziness History of kidney cancer Hypothyroidism Malignant tumor of kidney Malignant tumor of urinary bladder Neuropathy Osteoarthritis S/p nephrectomy Tobacco abuse Tobacco abuse Urothelial cancer (~2010) UTI (urinary tract infection) Surgical History H/O dilation and curettage H/O: hysterectomy History of partial hysterectomy Hx of total knee arthroplasty S/p nephrectomy "Left" Family History Aunt Heart disease [place] in her 50s Mother Breast cancer Father Prostate cancer Social History Smoking Status: Current every day smoker Tobacco Type: Cigarettes Cigarettes Per Day: 7; Second Hand Exposure: No; Do You Dip or Chew Tobacco: No; Tobacco Cessation Education Requested by Patient: No Hx Alcohol Use: No Hx Substance Use: No Preferred Language: Finnish Communication Ability: Effective Visual Impairment: No Limitations Hearing Ability: Normal Warp Clamper Required: No Beliefs That Will Affect Care: None marital status: / Current Living Situation: Alone Other Information That Helps Us Care for You: No Feels Safe at Home: Yes Safety Concerns: Feels Safe At This Time Physical Exam Physical Exam: GENERAL: This is an emaciated 80 year old female. Frail appearing. Does not appear in any acute distress. HEAD/FACE: Normocephalic and atraumatic. EYES: No drainage or conjunctival injection. ENT: Nose without bleeding or discharge. Oral mucosa is dry. NECK: Full ROM without apparent pain. No swelling or masses noted. RESPIRATORY: Patient with unlabored breathing. No signs of respiratory distress. CHEST/AXILLA: Chest movement symmetrical. No deformities noted. ABDOMEN/GI: No distension BACK: Moves without difficulty. + thoracic kyphosis and loss of lumbar lordosis. SKIN: [place], warm and dry. No rash noted. MS/EXTREMITY: No swelling, no deformities. Moving extremities appropriately. + marked osteoarthritic fingers. NEURO: Alert and appears oriented. Speech is fluent. Cranial Nerves are grossly intact. PSYCH: Alert, pleasant, affect is calm
[2020-08-13] MEDS: NICOTINE 7 MG/24 HR TDSY TD SCH (09:04)
[2020-08-13] MEDS: cefTRIAXone SODIUM 1,000 MG in DEXTROSE 5% 50 ML IV SCH (09:04)
[2020-08-13] MEDS: HEPARIN SOD 5,000 UNIT/0.5 ML VIAL SQ SCH ×2 (09:06→22:10)
[2020-08-13] MEDS: GABAPENTIN 100 MG CAP PO SCH ×3 (09:06→20:49)
[2020-08-13] MEDS: lamoTRIgine 25 MG TAB PO SCH ×2 (09:06→22:09)
[2020-08-13] MEDS: CALCIUM 600MG + VIT D 400 IU TAB PO SCH ×2 (09:06→22:09)
[2020-08-13] MEDS: HYDROCODONE/ACETAMOPHEN 5/325MG TAB PO PRN ×2 (09:17→15:25)
--- NOTE | 2020-08-13 12:29 | Hospitalist Progress Note ---
Date of Service August 13, 2020 Assessment & Plan (1) Generalized pain: -As per admission history on physical 08/12/2020 "An 80-year-old female with past medical history significant for hypothyroidism, hyperlipidemia, COPD, severe malnutrition, anemia due to vitamin B12 deficiency, chronic kidney disease stage III, female stress incontinence, history of UTIs, history of osteoarthritis, osteoporosis, bipolar disorder with depression, history of kidney cancer, bladder cancer, status post left nephrectomy, ambulatory dysfunction. The patient lives alone at home. She ambulates with help of walker. The patient was admitted to [facility] for depression and suicidal ideation. At that time, she was discharged on Seroquel, Lamictal, and Zoloft. The patient says recently she fell and she was in [facility] and she was discharged to rehab and stayed there for about 10-11 days and got discharged on 07/31/2020 to back home. She says she is currently only taking Lamictal because Zoloft and Seroquel did not agree with her and Lamictal is the only medicine she also got in the rehab too. She always has chronic pain from her osteoarthritis, but last few days it got worse. She has pain all over the body, her belly hurts, her chest hurts, her head aches. She states she has pain in the groins and shooting pain to the legs. That is the reason she came to the ER" -on my exam in the day time, the patient with miscellaneous reports of pain of shoulder and also that pain running down the legs -review of the [facility] notes that patient had history of Intertrochanteric fracture of left hip and and that she had Fixation Left Femur Intramedullary Jorge by Dr. Skaggs on 07/19/2020 -the 08/12/[address] chest and CT abdomen/pelvis with multiple skeletal issues: Acute versus subacute comminuted slightly displaced fracture of the right ischium with likely subacute nondisplaced fracture of the right inferior pubic ramus; Remote T12 compression deformity; New midthoracic compression deformities when compared the prior February 2018 study, Progressive distention of the left subscapular bursa, likely on an arthritic basis -there does not appear to be an acute inflammatory process because ESR and CRP are normal -check PTH and vitamin D levels -consult requested from orthopedics and pain management -08/13/2020: Patient received Hydrocodone by pain management and when hospitalist she was sleeping and easily awoken. Patient did not have acute distress. She has IV fluids running because of elevated creatinine on 08/13/2020. Patient is encouraged to work with PT/OT today as tolerated as hospitalist not expecting orthopedic interventions. patient declined gabapentin History of ambulatory dysfunction -uses walker at home -will need PT/OT evaluations CKD (chronic kidney disease) History of kidney cancer, bladder cancer, status post left nephrectomy -Avoid nonsteroidal anti-inflammatory drugs if possible. possible Urinary Tract Infection -positive bacteria in UA, and was started on empiric IV ceftriaxone for now -preliminary urine culture of Gram negative bacilli and Alpha strep. not enterococcus. Note that patient has history of Escherichia coli in urine in past (2) Hypothyroidism: -outpatient Levothyroxine of 88 mcg daily -The TSH is every elevated between 30 to 38 with low free T4 of 0.77 -increase the levothyroxine to 125 mcg daily starting on 08/13/2020 -labs do not show muscle breakdown as creatinine kinase is normal Underweight with BMI 14.9 -digital operations analyst consult, BOOST supplements (3) Bipolar disorder: Bipolar disorder with most recent episode of depression. history of neuropathic pain in the previous hospital records -She was in [facility] in February for suicidal ideation and depression. She was discharged on Lamictal, Zoloft, and Seroquel. -The patient currently is taking only Lamictal, which will be continued chronic obstructive pulmonary disease -not on any inhalers at home -on Combivent p.r.n. while in the hospital Deep venous thrombosis prophylaxis, heparin subQ. Admission and Anticipated Discharge Date Admission Date: August 12, 2020 Subjective Patient received Hydrocodone by pain management and when hospitalist she was sleeping and easily awoken. Patient did not have acute distress. She has IV fluids running because of elevated creatinine on 08/13/2020. Patient is encouraged to work with PT/OT today as tolerated as hospitalist not expecting orthopedic interventions. patient breathing on room air. she did not express other acute complaints Review of Systems Review of Systems: All systems reviewed & are unremarkable except as noted in Subjective Physical Exam Constitutional: + thin and cooperative Eyes: PERRL, conjunctivae normal, anicteric sclerae EOM intact bilaterally ENMT: external ear and nose normal, oropharynx normal Neck: normal visual inspection Respiratory: normal respiratory effort, lungs clear to auscultation Cardiovascular: Rate/Rhythm: + bradycardic Gastrointestinal (Abdomen): normal bowel sounds, soft, nontender, no hepatosplenomegaly Musculoskeletal: Head/Neck/Chest: normocephalic and head atraumatic Neurologic: PERRL, EOMI, accommodation nl, no face palsy, no dysarthria Psychiatric: A+Ox3, euthymic affect Results & Data Results & Data ([facility]) Vital Signs (Past 12 Hours) Vital Signs Temp Pulse Pulse Resp BP Pulse Ox 08/13/20 11:04 36.6 C 66 20 95/56 L 96 08/13/20 07:32 77 08/13/20 07:00 37 C 78 20 121/70 92 08/13/20 03:58 37.1 C 85 20 112/70 93 08/13/20 01:22 67
--- NOTE | 2020-08-13 15:05 | Orthopedic Consultation ---
Date of Consultation August 13, 2020 Assessment & Plan (1) Generalized pain: She has an history of an intramedullary nail fixation of her left hip as well as a left knee replacement. I looked at previous x-rays of her left shoulder and it seems obvious that she has a large rotator cuff tear. On full orthopedic physical examination she had good range of motion of her joints and no pain to palpation along her long bones or bony prominences. I do not think she has any fractures. I do not think she would be a good surgical candidate for any joint replacement surgeries. I think she can be up and ambulating with physical therapy. I think she should continue pain management. If there are any other issues then please feel free to contact me at [phone]. There is no need to follow-up with me in the office at this time as I do not see any surgical indications. Present on Admission?: Yes History of Present Illness Reason for Consultation: Osteoarthritis Attending Physician: Vadim Wilder MD History of Present Illness And is an 80-year-old female who was admitted to the hospital yesterday with pain "all over her body". She is feeling a little bit better now. She does see Dr. Rivera for arthritis and she follows up with the arthritis clinic in [place]. She is a history of a intramedullary nail fixation of her left hip about a year ago. She also has a history of a left knee replacement. She complains of pain in her hips, knees, legs, arms, shoulders, and hands. She is also dealing with some back pain. She is unable to localize the pain any better. She did has had a few recent falls but has had no evidence of fracture. She ambulates with a walker at her home. She has already been seen by pain management who is trying hydrocodone for her pain. Orthopedics was consulted to evaluate and treat. Allergies Allergy/AdvReac Type Severity Reaction Status Date / Time Penicillins Allergy Mild RASH Verified 08/12/20 03:29 albuterol [From ProAir HFA] AdvReac Intermediate Dizziness Verified 08/12/20 03:29 Home Medications Home Medications Medication Instructions Recorded Confirmed Type Caltrate 600 plus D 1 tab PO BID 11/20/18 08/12/20 History levothyroxine 88 mcg PO DAILY 07/18/19 08/12/20 History acetaminophen [Tylenol Extra 500 mg PO QID PRN 02/18/20 08/12/20 History Strength] lamotrigine [Lamictal] 25 mg PO BID 08/12/20 08/12/20 History Patient History Medical History Altered mental status Bipolar disorder Bladder cancer CKD (chronic kidney disease), stage IV CKD (chronic kidney disease), stage IV COPD (chronic obstructive pulmonary disease) COPD (chronic obstructive pulmonary disease) Dizziness History of kidney cancer Hypothyroidism Malignant tumor of kidney Malignant tumor of urinary bladder Neuropathy Osteoarthritis S/p nephrectomy Tobacco abuse Tobacco abuse Urothelial cancer (~2010) UTI (urinary tract infection) Surgical History H/O dilation and curettage H/O: hysterectomy History of partial hysterectomy Hx of total knee arthroplasty S/p nephrectomy "Left" Family History Aunt Heart disease [place] in her 50s Mother Breast cancer Father Prostate cancer Social History Smoking Status: Current every day smoker Tobacco Type: Cigarettes Cigarettes Per Day: 7; Second Hand Exposure: No; Do You Dip or Chew Tobacco: No; Tobacco Cessation Education Requested by Patient: No Hx Alcohol Use: No Hx Substance Use: No Preferred Language: Niuean Communication Ability: Effective Visual Impairment: No Limitations Hearing Ability: Normal Print Color Matcher Required: No Beliefs That Will Affect Care: None marital status: / Current Living Situation: Alone Other Information That Helps Us Care for You: No Feels Safe at Home: Yes Safety Concerns: Feels Safe At This Time Review of Systems Review of Systems: All systems reviewed & are unremarkable except as noted in HPI & below Physical Exam Constitutional: WD/WN, vitals as above Eyes: PERRL, conjunctivae normal, anicteric sclerae ENMT: external ear and nose normal, oropharynx normal Neck: trachea midline, no thyromegaly Respiratory: normal respiratory effort Cardiovascular: RRR, no murmur, no edema Gastrointestinal (Abdomen): normal bowel sounds, soft, nontender, no hepatosplenomegaly Musculoskeletal: On physical examination, she is able to lie flat. She is able to do a straight leg raise and has 5 out of 5 motor strength of her lower extremities. She has good range of motion of both hips both knees, and both ankles. She does not not have much pain with examination of her lower extremities. On examination of her upper extremities she is able to do forward elevation of both shoulders. The left shoulder is little weaker than the right. She has full motion of her elbows. She has obvious arthritic deformities of her hands. Psychiatric: A+Ox3, euthymic affect Results & Data ([facility]) Vital Signs (Past 12 Hours) Vital Signs Temp Pulse Pulse Resp BP Pulse Ox 08/13/20 11:04 36.6 C 66 20 95/56 L 96 08/13/20 07:32 77 08/13/20 07:00 37 C 78 20 121/70 92 08/13/20 03:58 37.1 C 85 20 112/70 93 PG Care Time/CCT Total # of Minutes Spent Total Time Spent with Patient: Total time spent is greater than 50% in coordination of care (as documented) at patient's floor/unit and/or counseling patient: Coding Level of Care Code 32414 Initial Inpt Care Lvl 2 Diagnoses Generalized pain R52
[2020-08-13] MEDS ORDERED: DOCUSATE SODIUM 100 MG CAP PO ONE (15:38)
[2020-08-13] MEDS: SENNA 8.6 MG TAB PO SCH ×2 (17:08→17:10)
[2020-08-13] MEDS: DOCUSATE SODIUM 100 MG CAP PO SCH (22:09)
[2020-08-14] MEDS: ACETAMINOPHEN 325 MG TAB PO PRN ×2 (03:35→11:05)
[2020-08-14] MEDS: LEVOTHYROXINE SODIUM 125 MCG TABLET PO SCH (06:01)
[2020-08-14 06:30] LABS: Hematocrit (blood only) 36.5 % (37-47); Hemoglobin 11.5 g/dL (12.0-16.0); Mean Corpuscular Hemoglobin 31.3 pg (25-34); Mean Corpuscular Hgb Conc 31.5 g/dL (32-36); Mean Corpuscular Volume 99.2 fL (80-100); Mean Platelet Volume 9.7 fL (7.4-10.4); Neutrophils % (auto) 65.7 %; Platelet Count 246 K/uL (130-400); RDW Coefficient of Variation 13.4 % (11.5-14.5); RDW Standard Deviation 48.7 fL (36.4-46.3); Red Blood Count 3.68 M/uL (4.2-5.4); White Blood Count 5.19 K/uL (4.8-10.8)
[2020-08-14 06:31] LABS: Basophils # (auto) 0.03 K/uL (0-0.2); Basophils % (auto) 0.6 %; Eosinophils # (auto) 0.18 K/uL (0-0.5); Eosinophils % (auto) 3.5 %; Immature Granulocytes # (auto) 0.01 K/uL (0.00-0.02); Immature Granulocytes % (auto) 0.2 %; Lymphocytes # (auto) 1.31 K/uL (1.2-3.4); Lymphocytes % (auto) 25.2 %; Monocytes # (auto) 0.25 K/uL (0.11-0.59); Monocytes % (auto) 4.8 %; Neutrophils # (auto) 3.41 K/uL (1.4-6.5)
[2020-08-14 07:11] LABS: Albumin Globulin Ratio 0.9 (0.9-2); Albumin Level 3.1 gm/dl (3.4-5.0); BUN Creatinine Ratio 32.4 (10-20); Bilirubin,Total 0.3 mg/dl (0.2-1); Calcium 9.2 mg/dl (8.5-10.1); Creatinine Clr Calc Pharmacy 27.5 ml/min; Est GFR (African American) 55.1; Est GFR (Non-African American) 47.6; Globulin 3.5 gm/dl (2.5-4.0); Potassium 4.6 mmol/L (3.5-5.1); Total Protein 6.6 gm/dl (6.4-8.2)
[2020-08-14] MEDS: SENNA 8.6 MG TAB PO SCH (09:06)
[2020-08-14] MEDS: CALCIUM 600MG + VIT D 400 IU TAB PO SCH (09:06)
[2020-08-14] MEDS: HEPARIN SOD 5,000 UNIT/0.5 ML VIAL SQ SCH (09:06)
[2020-08-14] MEDS: lamoTRIgine 25 MG TAB PO SCH (09:06)
[2020-08-14] MEDS: DOCUSATE SODIUM 100 MG CAP PO SCH (09:06)
[2020-08-14] MEDS: HYDROCODONE/ACETAMOPHEN 5/325MG TAB PO PRN (09:11)
[2020-08-14] MEDS: cefTRIAXone SODIUM 1,000 MG in DEXTROSE 5% 50 ML IV SCH (10:00)
--- NOTE | 2020-08-14 10:26 | Hospitalist Progress Note ---
Date of Service August 14, 2020 Assessment & Plan (1) Generalized pain: -As per admission history on physical 08/12/2020 "An 80-year-old female with past medical history significant for hypothyroidism, hyperlipidemia, COPD, severe malnutrition, anemia due to vitamin B12 deficiency, chronic kidney disease stage III, female stress incontinence, history of UTIs, history of osteoarthritis, osteoporosis, bipolar disorder with depression, history of kidney cancer, bladder cancer, status post left nephrectomy, ambulatory dysfunction. The patient lives alone at home. She ambulates with help of walker. The patient was admitted to [facility] for depression and suicidal ideation. At that time, she was discharged on Seroquel, Lamictal, and Zoloft. The patient says recently she fell and she was in [facility] and she was discharged to rehab and stayed there for about 10-11 days and got discharged on 07/31/2020 to back home. She says she is currently only taking Lamictal because Zoloft and Seroquel did not agree with her and Lamictal is the only medicine she also got in the rehab too. She always has chronic pain from her osteoarthritis, but last few days it got worse. She has pain all over the body, her belly hurts, her chest hurts, her head aches. She states she has pain in the groins and shooting pain to the legs. That is the reason she came to the ER" -on my exam in the day time on 08/13/2020, the patient with miscellaneous reports of pain of shoulder and also that pain running down the legs -review of the [facility] notes that patient had history of Intertrochanteric fracture of left hip and and that she had Fixation Left Femur Intramedullary Jorge by Dr. Skaggs on 07/19/2020 -the 08/12/[address] chest and CT abdomen/pelvis with multiple skeletal issues: Acute versus subacute comminuted slightly displaced fracture of the right ischium with likely subacute nondisplaced fracture of the right inferior pubic ramus; Remote T12 compression deformity; New midthoracic compression deformities when compared the prior February 2018 study, Progressive distention of the left subscapular bursa, likely on an arthritic basis -there does not appear to be an acute inflammatory process because ESR and CRP are normal -normal PTH and normal vitamin D levels, normal b12 levels -consult requested from orthopedics and pain management -08/13/2020: Patient received Hydrocodone by pain management and when hospitalist she was sleeping and easily awoken. Patient did not have acute distress. She has IV fluids running because of elevated creatinine on 08/13/2020. orthopedic evaluation by Dr. Saucedo without any new recommendations 08/14/2020 " She has an history of an intramedullary nail fixation of her left hip as well as a left knee replacement. I looked at previous x-rays of her left shoulder and it seems obvious that she has a large rotator cuff tear. On full orthopedic physical examination she had good range of motion of her joints and no pain to palpation along her long bones or bony prominences. I do not think she has any fractures. I do not think she would be a good surgical candidate for any joint replacement surgeries. I think she can be up and ambulating with physical therapy. I think she should continue pain management. If there are any other issues then please feel free to contact me at [phone]. There is no need to follow-up with me in the office at this time as I do not see any surgical indications." patient declined gabapentin but she expressed some willing to try trial of gabapentin on 08/14/2020 History of ambulatory dysfunction -uses walker at home -passed OT evaluation -will be seen by PT evaluation Acute Kidney Injury on CKD (chronic kidney disease) History of kidney cancer, bladder cancer, status post left nephrectomy -Avoid nonsteroidal anti-inflammatory drugs -patient received IV fluids on 08/13/2020. labs on 08/14/2020 shows renal function back to baseline possible Urinary Tract Infection -positive bacteria in UA, and was started on empiric IV ceftriaxone -urine culture of Escherichia coli and Alpha strep. not enterococcus. Note that patient has history of Escherichia coli in urine in past. although ceftriaxone has been given, patient likely has the Escherichia coli as colonization and is non-contributory to her pain symptoms. (2) Hypothyroidism: -outpatient Levothyroxine of 88 mcg daily -The TSH is every elevated between 30 to 38 with low free T4 of 0.77 -increase the levothyroxine to 125 mcg daily starting on 08/13/2020 -labs do not show muscle breakdown as creatinine kinase is normal Underweight with BMI 14.9 -associate buyer consult, BOOST supplements (3) Bipolar disorder: Bipolar disorder with most recent episode of depression. history of neuropathic pain in the previous hospital records -She was in [facility] in February for suicidal ideation and depression. She was discharged on Lamictal, Zoloft, and Seroquel. -The patient currently is taking only Lamictal, which will be continued chronic obstructive pulmonary disease -not on any inhalers at home -on Combivent p.r.n. while in the hospital Deep venous thrombosis prophylaxis, heparin subQ. Admission and Anticipated Discharge Date Admission Date: August 12, 2020 Subjective she expressed some willing to try trial of gabapentin on 08/14/2020. discussed with patient that skilled nursing strategy of narcotic pain medication would not be a skilled nursing pain medication strategy. her son will be coming to hospital and will discuss with him the limitations on chronic pain management while inpatient. Patient also does not appear to be in acute distress despite her reporting a basal level of pain which is vaguely described. breathing on room air. no fevers. Review of Systems Review of Systems: All systems reviewed & are unremarkable except as noted in Subjective Physical Exam Constitutional: + thin and cooperative Eyes: PERRL, conjunctivae normal, anicteric sclerae EOM intact bilaterally ENMT: external ear and nose normal, oropharynx normal Neck: normal visual inspection Respiratory: normal respiratory effort, lungs clear to auscultation Cardiovascular: Rate/Rhythm: + bradycardic Gastrointestinal (Abdomen): normal bowel sounds, soft, nontender, no hepatosplenomegaly Musculoskeletal: Head/Neck/Chest: normocephalic and head atraumatic Neurologic: PERRL, EOMI, accommodation nl, no face palsy, no dysarthria Psychiatric: A+Ox3, euthymic affect Results & Data Results & Data ([facility]) Vital Signs (Past 12 Hours) Vital Signs Temp Pulse Pulse Resp BP BP Pulse Ox 08/14/20 07:43 36.8 C 68 16 106/63 95 08/14/20 07:13 64 08/14/20 04:49 36.7 C 65 20 135/82 95 08/14/20 02:36 68 08/13/20 22:30 37.3 C 69 18 108/65 95
[2020-08-14] MEDS ORDERED: GABAPENTIN 100 MG CAP PO SCH (10:30)
[2020-08-14] MEDS: NICOTINE 7 MG/24 HR TDSY TD SCH (10:53)
[2020-08-14] MEDS: GABAPENTIN 100 MG CAP PO SCH ×2 (10:53→13:00)
--- NOTE | 2020-08-14 16:02 | Discharge Summary ---
Date of Service August 14, 2020 Admission HPI Per Admitting Provider An 80-year-old female with past medical history significant for hypothyroidism, hyperlipidemia, COPD, severe malnutrition, anemia due to vitamin B12 deficiency, chronic kidney disease stage III, female stress incontinence, history of UTIs, history of osteoarthritis, osteoporosis, bipolar disorder with depression, history of kidney cancer, bladder cancer, status post left nephrectomy, ambulatory dysfunction. The patient lives alone at home. She ambulates with help of walker. The patient was admitted to [facility] for depression and suicidal ideation. At that time, she was discharged on Seroquel, Lamictal, and Zoloft. The patient says recently she fell and she was in [facility] and she was discharged to rehab and stayed there for about 10-11 days and got discharged on 07/31/2020 to back home. She says she is currently only taking Lamictal because Zoloft and Seroquel did not agree with her and Lamictal is the only medicine she also got in the rehab too. She always has chronic pain from her osteoarthritis, but last few days it got worse. She has pain all over the body, her belly hurts, her chest hurts, her head aches. She states she has pain in the groins and shooting pain to the legs. That is the reason she came to the ER today. Denies any fever, chills. Denies any cough. Sometimes she gets short of breath. She says she has some runny nose. Denies any sore throat. She says she swallows food okay. Very hard of hearing. She says she can see some spots in the eyes, but that is going on for some time. No nausea. Normal bowel and bladder movements. Currently resting comfortably and hemodynamically stable. Labs were unremarkable except for elevated TSH and low free T4. Urinalysis positive. Chest x-ray unremarkable. Principal Diagnosis Generalized pain Hypothyroidism Urinary Tract Infection acute kidney injury on chronic kidney disease Bipolar disorder Underweight with BMI 14.9 Discharge Exam Constitutional + thin and cooperative Eyes PERRL, conjunctivae normal, anicteric sclerae EOM intact bilaterally ENMT external ear and nose normal, oropharynx normal Neck normal visual inspection Respiratory normal respiratory effort, lungs clear to auscultation Cardiovascular Rate/Rhythm: + bradycardic Gastrointestinal (Abdomen) normal bowel sounds, soft, nontender, no hepatosplenomegaly Musculoskeletal Head/Neck/Chest: normocephalic and head atraumatic Neurologic PERRL, EOMI, accommodation nl, no face palsy, no dysarthria Psychiatric A+Ox3, euthymic affect Discharge Data Allergies Allergy/AdvReac Type Severity Reaction Status Date / Time Penicillins Allergy Mild RASH Verified 08/12/20 03:29 albuterol [From ProAir HFA] AdvReac Intermediate Dizziness Verified 08/12/20 03:29 Consultations 08/12/20 04:33 ED Decision to Admit Stat 08/12/20 07:53 Consult Case Management - Discharge Planning Routine 08/12/20 13:21 Consult Pain Management Routine 08/12/20 15:06 Consult Orthopedic Surgery Routine Ordered Studies 08/12/20 05:25 CT abd pelvis wo con Routine CT chest wo con Routine Hospital Course (1) Generalized pain: -As per admission history on physical 08/12/2020 "An 80-year-old female with past medical history significant for hypothyroidism, hyperlipidemia, COPD, severe malnutrition, anemia due to vitamin B12 deficiency, chronic kidney disease stage III, female stress incontinence, history of UTIs, history of osteoarthritis, osteoporosis, bipolar disorder with depression, history of kidney cancer, bladder cancer, status post left nephrectomy, ambulatory dysfunction. The patient lives alone at home. She ambulates with help of walker. The patient was admitted to [facility] for depression and suicidal ideation. At that time, she was discharged on Seroquel, Lamictal, and Zoloft. The patient says recently she fell and she was in [facility] and she was discharged to rehab and stayed there for about 10-11 days and got discharged on 07/31/2020 to back home. She says she is currently only taking Lamictal because Zoloft and Seroquel did not agree with her and Lamictal is the only medicine she also got in the rehab too. She always has chronic pain from her osteoarthritis, but last few days it got worse. She has pain all over the body, her belly hurts, her chest hurts, her head aches. She states she has pain in the groins and shooting pain to the legs. That is the reason she came to the ER" -on my exam in the day time on 08/13/2020, the patient with miscellaneous reports of pain of shoulder and also that pain running down the legs -review of the [facility] notes that patient had history of Intertrochanteric fracture of left hip and and that she had Fixation Left Femur Intramedullary Jorge by Dr. Skaggs on 07/19/2020 -the 08/12/[address] chest and CT abdomen/pelvis with multiple skeletal issues: Acute versus subacute comminuted slightly displaced fracture of the right ischium with likely subacute nondisplaced fracture of the right inferior pubic ramus; Remote T12 compression deformity; New midthoracic compression deformities when compared the prior February 2018 study, Progressive distention of the left subscapular bursa, likely on an arthritic basis -there does not appear to be an acute inflammatory process because ESR and CRP are normal -normal PTH and normal vitamin D levels, normal b12 levels -consult requested from orthopedics and pain management -08/13/2020: Patient received Hydrocodone by pain management and when hospitalist she was sleeping and easily awoken. Patient did not have acute distress. She has IV fluids running because of elevated creatinine on 08/13/2020. orthopedic evaluation by Dr. Saucedo without any new recommendations 08/14/2020 " She has an history of an intramedullary nail fixation of her left hip as well as a left knee replacement. I looked at previous x-rays of her left shoulder and it seems obvious that she has a large rotator cuff tear. On full orthopedic physical examination she had good range of motion of her joints and no pain to palpation along her long bones or bony prominences. I do not think she has any fractures. I do not think she would be a good surgical candidate for any joint replacement surgeries. I think she can be up and ambulating with physical therapy. I think she should continue pain management. If there are any other issues then please feel free to contact me at [phone]. There is no need to follow-up with me in the office at this time as I do not see any surgical indications." -patient's son came to see the patient and hospitalist went over hospital course and evaluations to date. patient's son agreed to help patient go home. encouraged patient and her son to have patient get to a primary care doctor appointment because of history of "No Shows" History of ambulatory dysfunction -uses walker at home -passed therapy evaluations Acute Kidney Injury on CKD (chronic kidney disease) History of kidney cancer, bladder cancer, status post left nephrectomy -Avoid nonsteroidal anti-inflammatory drugs -patient received IV fluids on 08/13/2020. labs on 08/14/2020 shows renal function back to baseline possible Urinary Tract Infection -positive bacteria in UA, and was started on empiric IV ceftriaxone -urine culture of Escherichia coli and Alpha strep. not enterococcus. Note that patient has history of Escherichia coli in urine in past. although ceftriaxone has been given, patient likely has the Escherichia coli as colonization and is non-contributory to her pain symptoms. -patient had ceftriaxone on 08/13/2020 and 08/14/2020, patient should take bactrim once in morning and once in evening on 08/15/2020 which is prescribed to the her pharmacy (2) Hypothyroidism: -outpatient Levothyroxine of 88 mcg daily -The TSH is every elevated between 30 to 38 with low free T4 of 0.77 -increase the levothyroxine to 125 mcg daily starting on 08/13/2020 -labs do not show muscle breakdown as creatinine kinase is normal -patient should take levothyroxine 125 mcg every morning before breakfast and have full thyroid function testing performed by primary care doctor in 4 to 6 weeks Underweight with BMI 14.9 -munitions worker consult, BOOST supplements -Patient can take BOOST supplements with meals to help with weight gain (3) Bipolar disorder: Bipolar disorder with most recent episode of depression. history of neuropathic pain in the previous hospital records -She was in [facility] in February for suicidal ideation and depression. She was discharged on Lamictal, Zoloft, and Seroquel. -The patient currently is taking only Lamictal, which was continued chronic obstructive pulmonary disease -not on any inhalers at home -outpatient follow up -other medications of senna/colace for regular bowel movements, short term course of acetaminophen for pain, and nicotine patch to stop smoking Deep venous thrombosis prophylaxis, heparin subQ. Total Time Total Time Spent Total Time Spent (In Minutes): 40 minutes Total Time Includes: Examination of the Patient, Discharge Planning, Medication Reconciliation and Communication With Other Providers Discharge Plan Discharge Items Patient Disposition: Home - Self-Care Reason For Visit: GENERALIZED PAIN Discharge Diagnosis: Generalized pain Hypothyroidism Urinary Tract Infection acute kidney injury on chronic kidney disease Bipolar disorder Underweight with BMI 14.9 Condition on Discharge: Fair Activity: Resume your previous activity Non-emergency contact: Primary Care Provider Call non-emergency contact if: you have any medication questions Follow-up/Referrals: [facility] [Primary Care Provider] - Diet: Regular Addtl Attending Provider Instructions: encouraged patient and her son to have patient get to a primary care doctor appointment because of history of "No Shows" Patient has TSH level in the 30s which is very abnormal. discharge medication sent electronically to [facility] [address] [place] [address], [place] [address] and patient should take levothyroxine 125 mcg every morning before breakfast and have full thyroid function testing performed by primary care doctor in 4 to 6 weeks -positive bacteria in UA, and was started on empiric IV ceftriaxone -urine culture of Escherichia coli and Alpha strep. not enterococcus. Note that patient has history of Escherichia coli in urine in past. although ceftriaxone has been given, patient likely has the Escherichia coli as colonization and is non-contributory to her pain symptoms. patient had ceftriaxone on 08/13/2020 and 08/14/2020, patient should take bactrim once in morning and once in evening on 08/15/2020 which is prescribed to the her pharmacy other medications of senna/colace for regular bowel movements, short term course of acetaminophen for pain, and nicotine patch to stop smoking Patient can take BOOST supplements with meals to help with weight gain Addtl Bark Skinner Provider Instructions: -As per admission history on physical 08/12/2020 "An 80-year-old female with past medical history significant for hypothyroidism, hyperlipidemia, COPD, severe malnutrition, anemia due to vitamin B12 deficiency, chronic kidney disea se stage III, female stress incontinence, history of UTIs, history of osteoarthritis, osteoporosis, bipolar disorder with depression, history of kidney cancer, bladder cancer, status post left nephrectomy, ambulatory dysfunction. The patient lives alone at home. She ambulates with help of walker. The patient was admitted to [facility] for depression and suicidal ideation. At that time, she was discharged on Seroquel, Lamictal, and Zoloft. The patient says recently she fell and she was in [facility] and she was discharged to rehab and stayed there for about 10-11 days and got discharged on 07/31/2020 to back home. She says she is currently only taking Lamictal because Zoloft and Seroquel did not agree with her and Lamictal is the only medicine she also got in the rehab too. She always has chronic pain from her osteoarthritis, but last few days it got worse. She has pain all over the body, her belly hurts, her chest hurts, her head aches. She states she has pain in the groins and shooting pain to the legs. That is the reason she came to the ER" -on my exam in the day time on 08/13/2020, the patient with miscellaneous reports of pain of shoulder and also that pain running down the legs -review of the [facility] notes that patient had history of Intertrochanteric fracture of left hip and and that she had Fixation Left Femur Intramedullary Jorge by Dr. Skaggs on 07/19/2020 -the 08/12/[address] chest and CT abdomen/pelvis with multiple skeletal issues: Acute versus subacute comminuted slightly displaced fracture of the right ischium with likely subacute nondisplaced fracture of the right inferior pubic ramus; Remote T12 compression deformity; New midthoracic compression deformities when compared the prior February 2018 study, Progressive distention of the left subscapular bursa, likely on an arthritic basis -there does not appear to be an acute inflammatory process because ESR and CRP are normal -normal PTH and normal vitamin D levels, normal b12 levels -consult requested from orthopedics and pain management -08/13/2020: Patient received Hydrocodone by pain management and when hospitalist she was sleeping and easily awoken. Patient did not have acute distress. She has IV fluids running because of elevated creatinine on 08/13/2020. orthopedic evaluation by Dr. Saucedo without any new recommendations 08/14/2020 " She has an history of an intramedullary nail fixation of her left hip as well as a left knee replacement. I looked at previous x-rays of her left shoulder and it seems obvious that she has a large rotator cuff tear. On full orthopedic physical examination she had good range of motion of her joints and no pain to palpation along her long bones or bony prominences. I do not think she has any fractures. I do not think she would be a good surgical candidate for any joint replacement surgeries. I think she can be up and ambulating with physical therapy. I think she should continue pain management. If there are any other issues then please feel free to contact me at [phone]. There is no need to follow-up with me in the office at this time as I do not see any surgical indications." Pending Studies at Discharge: No Stand-Alone Forms: My [facility], Smoking Cessation Medications and DC Order Prescriptions: New sennosides [Senokot] 8.6 mg Tablet 8.6 mg PO QAM 30 Days Qty: 30 RF: 0 docusate sodium 100 mg Capsule 100 mg PO BID 30 Days Qty: 60 RF: 0 nicotine 7 mg/24 hr Patch 24 Hour 7 mg transdermal QAM 28 Days Qty: 28 RF: 0 levothyroxine 125 mcg tablet 125 mcg PO DAILY 30 Days Qty: 30 RF: 0 acetaminophen 325 mg Tablet 325 mg PO Q6H PRN (Reason: fever or pain) 5 Days Qty: 20 RF: 0 levothyroxine 125 mcg tablet 125 mcg PO DAILY 30 Days Qty: 30 RF: 0 sulfamethoxazole-trimethoprim 800-160 mg tablet 1 tab PO BID 1 Days Qty: 2 RF: 0 Continued Caltrate 600 plus D 600 mg (1,500 mg)-800 unit Tablet,Chewable 1 tab PO BID RF: 0 lamotrigine [Lamictal] 25 mg tablet 25 mg PO BID RF: 0 Discontinued levothyroxine 88 mcg Tablet 88 mcg PO DAILY RF: 0 acetaminophen [Tylenol Extra Strength] 500 mg Tablet 500 mg PO QID PRN (Reason: Pain) RF: 0 Discharge Orders: Discharge Order (Routine); Ordered 08/14/20 Ordered By: Vadim Wilder Admission Data Admit Date/Time: 08/12/20 05:24 Attending Provider: Vadim Wilder Admit Provider: Richard Story [facility] Other Providers: Shayy Dye ; Raul Saucedo ; [facility] ; Richard Story Other Interventions: Discharge Summary Assessment (RN) Last Done: 08/14/20 14:45
--- NOTE | 2020-08-14 16:54 | Electrocardiogram Report ---
Test Reason : Blood Pressure : / mmHG Vent. Rate : 069 BPM Atrial Rate : 069 BPM P-R Int : 202 ms QRS Dur : 072 ms QT Int : 380 ms P-R-T Axes : 085 085 080 degrees QTc Int : 407 ms Normal sinus rhythm When compared with ECG of 13-AUG-2020 06:42, Nonspecific T wave abnormality no longer evident in Inferior leads Confirmed by Aly Rivers ([id number] on 08/14/2020 4:54:06 PM Referred By: REFERRED SELF Confirmed By:Nabeel Rivers
== END 2020-08-14 15:45 | disposition home health service (06) ==
LOC: 2N 03:03 → ED 03:03 → 2N 07:27

== ENCOUNTER 2020-08-26 11:31 | Inpatient (IN) ==
[2020-08-26] MEDS ORDERED: TRAMADOL HCL 50 MG TABLET PO STA (12:13)
--- NOTE | 2020-08-26 12:21 | Emergency Department Note ---
History of Present Illness General Chief complaint: Fall Stated complaint: fall/ gen. pain Time Seen by Provider: 08/26/20 12:01 Source: patient History of Present Illness Provider complaint: Syncope Onset (ago): hour(s) Location: head Pain Consistency: + now resolved Maximum Pain Intensity: 10 Quality: + other (Passed out for about a minute) Exacerbated By: + none Associated symptoms: + headaches, + shortness of breath (Mild) and + syncope; no chest pain, no cough, no fever/chills and no nausea/vomiting This is an 80-year-old female who is presenting with a syncopal episode today. She states that it occurred approximately 1 hour prior to arrival. The patient was sitting in a chair when she started to feel lightheaded. She then passed out and woke up on the ground. She believes she slid down on the chair. She does complain of pain to the right side of her head and neck. She also complains of diffuse pain all over her body. This is generalized pain that she has had for a long time due to osteoarthritis and she has it on a daily basis. She states that she has no specific new pain and does not believe she injured herself during the fall. She states she normally has headaches. She denied any chest discomfort, fever, cough or cold symptoms, abdominal pain, vomiting, diarrhea or urinary symptoms. She denies any known exposure to COVID-19. She states that she has been able to make herself food because of generalized weakness for the past 2 days so she has not been eating very much. She does complain of some mild shortness of breath. Home Medications Home Medications Medication Instructions Recorded Confirmed Type Caltrate 600 plus D 1 tab PO BID 11/20/18 08/26/20 History lamotrigine [Lamictal] 25 mg PO BID 08/12/20 08/26/20 History docusate sodium 100 mg PO BID 30 Days #60 cap 08/14/20 08/26/20 Rx levothyroxine 125 mcg PO DAILY 30 Days #30 tab 08/14/20 08/26/20 Rx sennosides [Senokot] 8.6 mg PO QAM 30 Days #30 tab 08/14/20 08/26/20 Rx acetaminophen [Tylenol Extra 1,000 mg PO Q6H PRN 08/26/20 08/26/20 History Strength] Allergies Allergy/AdvReac Type Severity Reaction Status Date / Time Penicillins Allergy Mild RASH Verified 08/26/20 13:07 albuterol [From ProAir HFA] AdvReac Intermediate Dizziness Verified 08/26/20 13:07 Past Med/Surg History Medical History Altered mental status Bipolar disorder Bladder cancer CKD (chronic kidney disease), stage IV CKD (chronic kidney disease), stage IV COPD (chronic obstructive pulmonary disease) COPD (chronic obstructive pulmonary disease) Dizziness History of kidney cancer Hypothyroidism Intractable pain Malignant tumor of kidney Malignant tumor of urinary bladder Neuropathy Osteoarthritis S/p nephrectomy Tobacco abuse Tobacco abuse Urothelial cancer (~2010) UTI (urinary tract infection) Surgical History H/O dilation and curettage H/O: hysterectomy History of partial hysterectomy Hx of total knee arthroplasty S/p nephrectomy "Left" Family History Aunt Heart disease CT in her 50s Mother Breast cancer Father Prostate cancer Social History Smoking Status: Current every day smoker Tobacco Type: Cigarettes Cigarettes Per Day: 7; Second Hand Exposure: No; Hx Alcohol Use: No Hx Substance Use: No Preferred Language: Georgian Communication Ability: Effective Visual Impairment: No Limitations Hearing Ability: Normal Client Business Manager Required: No Beliefs That Will Affect Care: None marital status: / Current Living Situation: Alone Other Information That Helps Us Care for You: No Feels Safe at Home: Yes Safety Concerns: Feels Safe At This Time Assistive Devices: Glasses and Walker Review of Systems See HPI for pertinent positives & negatives. and A total of 10 systems reviewed and were otherwise negative Physical Exam Vital Signs Vital Signs - 24 hr 08/26/20 11:36 08/26/20 11:38 08/26/20 13:20 Temperature 37.1 C Temperature Source Oral Pulse Rate 77 84 77 Pulse Rate from SpO2 Sensor Respiratory Rate 17 18 20 Respiratory Effort / Characteristics Non-Labored Spontaneous Respiratory Depth Normal Respiratory Pattern Regular Blood Pressure 126/72 126/72 Blood Pressure Mean 84 90 Pulse Oximetry 97 Oxygen Delivery Method Room Air Room Air Room Air Sepsis Recent Fever Within 48 Hours No Sepsis New/Unexplained Change in Mental Status N/A Sepsis Action Taken by Nursing No Action Required 08/26/20 13:30 08/26/20 13:42 08/26/20 13:54 Temperature Temperature Source Pulse Rate 75 77 Pulse Rate from SpO2 Sensor Respiratory Rate 27 H 15 Respiratory Effort / Characteristics Respiratory Depth Respiratory Pattern Blood Pressure Blood Pressure Mean Pulse Oximetry Oxygen Delivery Method Room Air Room Air Room Air Sepsis Recent Fever Within 48 Hours Sepsis New/Unexplained Change in Mental Status Sepsis Action Taken by Nursing 08/26/20 13:55 08/26/20 13:56 08/26/20 14:00 Temperature Temperature Source Pulse Rate 79 80 68 Pulse Rate from SpO2 Sensor 82 80 72 Respiratory Rate 29 H 17 15 Respiratory Effort / Characteristics Respiratory Depth Respiratory Pattern Blood Pressure 127/85 133/78 Blood Pressure Mean 109 88 Pulse Oximetry 96 96 96 Oxygen Delivery Method Room Air Room Air Room Air Sepsis Recent Fever Within 48 Hours Sepsis New/Unexplained Change in Mental Status Sepsis Action Taken by Nursing 08/26/20 14:01 08/26/20 14:10 08/26/20 14:20 Temperature Temperature Source Pulse Rate 74 81 75 Pulse Rate from SpO2 Sensor 75 80 75 Respiratory Rate 26 H 23 24 Respiratory Effort / Characteristics Respiratory Depth Respiratory Pattern Blood Pressure Blood Pressure Mean Pulse Oximetry 95 95 96 Oxygen Delivery Method Room Air Room Air Room Air Sepsis Recent Fever Within 48 Hours Sepsis New/Unexplained Change in Mental Status Sepsis Action Taken by Nursing Constitutional: Vital signs reviewed. Eyes: Pupils are equal round reactive to light. Conjunctiva are noninjected. ENT: Pharynx is clear without erythema or exudate. Mucous membranes are moist. Neck supple without meningeal signs. No midline tenderness to the cervical spine. Respiratory: Clear to auscultation bilaterally. Breath sounds are equal bilaterally. Cardiovascular: Regular rate and rhythm. No rubs or gallops. GI: Soft, nondistended and nontender. Bowel sounds are present. Musculoskeletal: No peripheral edema. No lower extremity tenderness. Integumentary: No cyanosis. or jaundice. Neurologic: The patient is awake and alert. Cranial nerves II-XII are intact. Motor is 5 out of 5 all extremities. Sensation is intact to light touch all extremities. Normal speech. No pronator drift. Psychiatric: Normal affect. Not anxious appearing. Course Administered Medications Sodium Chloride (Nss 1000ml) 1,000 mls @ 80 mls/hr IV .[id number] EDUARDO Stop: 08/27/20 03:29 Last Admin: 08/26/20 17:46 Dose: 80 mls/hr Documented by: [id number] Oxycodone HCl (Oxycodone Hcl Ir 5 Mg Tab (Immediate Release)) 5 mg PO Q6H PRN PRN Reason: moderate pain Stop: 09/09/20 17:35 Last Admin: 08/26/20 17:47 Dose: 5 mg Documented by: [id number] Discontinued Medications Acetaminophen (Acetaminophen 325 Mg Tab) Confirm Administered Dose 325 mg .ROUTE .STK-MED ONE Stop: 08/26/20 16:20 Last Admin: 08/26/20 16:20 Dose: 325 mg Documented by: [id number] Tramadol HCl (Tramadol Hcl 50 Mg Tablet) 50 mg PO NOW STA Stop: 08/26/20 12:14 Last Admin: 08/26/20 12:38 Dose: 50 mg Documented by: [id number] Medical Decision Making Differential Diagnosis Syncope, ICH, concussion, metabolic derangement, anemia, dysrhythmia Medical Records Attestation: I reviewed the patient's medical records. The patient was admitted to the hospital earlier this month for intractable chronic pain as well as UTI. She was discharged on the and came back to the emergency department a few hours later for continued pain. She was discharged from the ED at that time. Home Medications Current Medication List: was personally reviewed by me Laboratory Data Attestation: I reviewed the patient's lab results. Result diagrams: 08/26/20 13:17 08/26/20 13:17 Lab Results 08/26/20 08/26/20 08/26/20 Range/Units 13:17 13:17 13:17 WBC 5.94 (4.8-10.8) K/uL RBC 4.18 L (4.2-5.4) M/uL Hgb 13.3 (12.0-16.0) g/dL Hct 41.6 (37-47) % MCV 99.5 (80-100) fL MCH 31.8 (25-34) pg MCHC 32.0 (32-36) g/dL RDW Std Deviation 48.7 H (36.4-46.3) fL RDW Coeff of Margarito 13.5 (11.5-14.5) % Plt Count 262 (130-400) K/uL MPV 9.7 (7.4-10.4) fL Immature Gran % (Auto) 0.2 % Neut % (Auto) 68.5 % Lymph % (Auto) 21.9 % [place] % (Auto) 7.6 % Eos % (Auto) 1.5 % Baso % (Auto) 0.3 % Neut # (Auto) 4.07 (1.4-6.5) K/uL Lymph # (Auto) 1.30 (1.2-3.4) K/uL [place] # (Auto) 0.45 (0.11-0.59) K/uL Eos # (Auto) 0.09 (0-0.5) K/uL Baso # (Auto) 0.02 (0-0.2) K/uL Immature Gran # (Auto) 0.01 (0.00-0.02) K/uL Sodium 143 (136-145) mmol/L Potassium 4.1 (3.5-5.1) mmol/L Chloride 112 H (98-107) mmol/L Carbon Dioxide 23 (21-32) mmol/L Anion Gap 8.0 (3-11) BUN 35 H (7-18) mg/dl Creatinine 1.09 (0.6-1.2) mg/dl Est Cr Clr Drug Dosing 24.2 ml/min Est GFR ( Amer) 55.1 Est GFR (Non-Af Amer) 47.6 BUN/Creatinine Ratio 31.7 H (10-20) Glucose 102 H (70-99) mg/dl Calcium 10.6 H (8.5-10.1) mg/dl Magnesium 2.2 Cancelled (1.8-2.4) mg/dl Total Bilirubin 0.5 (0.2-1) mg/dl AST 13 L (15-37) U/L ALT 16 (12-78) U/L Alkaline Phosphatase 102 (45-117) U/L Total Creatine Kinase 46 (26-192) U/L Troponin I < 0.015 (0-0.045) ng/ml Total Protein 7.8 (6.4-8.2) gm/dl Albumin 3.9 (3.4-5.0) gm/dl Globulin 3.9 (2.5-4.0) gm/dl Albumin/Globulin Ratio 1.0 (0.9-2) TSH 0.486 Cancelled (0.300-4.500) uIu/ml 08/26/20 Range/Units 13:17 WBC (4.8-10.8) K/uL RBC (4.2-5.4) M/uL Hgb (12.0-16.0) g/dL Hct (37-47) % MCV (80-100) fL MCH (25-34) pg MCHC (32-36) g/dL RDW Std Deviation (36.4-46.3) fL RDW Coeff of Margarito (11.5-14.5) % Plt Count (130-400) K/uL MPV (7.4-10.4) fL Immature Gran % (Auto) % Neut % (Auto) % Lymph % (Auto) % [place] % (Auto) % Eos % (Auto) % Baso % (Auto) % Neut # (Auto) (1.4-6.5) K/uL Lymph # (Auto) (1.2-3.4) K/uL [place] # (Auto) (0.11-0.59) K/uL Eos # (Auto) (0-0.5) K/uL Baso # (Auto) (0-0.2) K/uL Immature Gran # (Auto) (0.00-0.02) K/uL Sodium (136-145) mmol/L Potassium (3.5-5.1) mmol/L Chloride (98-107) mmol/L Carbon Dioxide (21-32) mmol/L Anion Gap (3-11) BUN (7-18) mg/dl Creatinine (0.6-1.2) mg/dl Est Cr Clr Drug Dosing ml/min Est GFR ( Amer) Est GFR (Non-Af Amer) BUN/Creatinine Ratio (10-20) Glucose (70-99) mg/dl Calcium (8.5-10.1) mg/dl Magnesium (1.8-2.4) mg/dl Total Bilirubin (0.2-1) mg/dl AST (15-37) U/L ALT (12-78) U/L Alkaline Phosphatase (45-117) U/L Total Creatine Kinase Cancelled (26-192) U/L Troponin I (0-0.045) ng/ml Total Protein (6.4-8.2) gm/dl Albumin (3.4-5.0) gm/dl Globulin (2.5-4.0) gm/dl Albumin/Globulin Ratio (0.9-2) TSH (0.300-4.500) uIu/ml Imaging Data Radiologist's Impression: CT SCAN OF THE BRAIN WITHOUT IV CONTRAST CLINICAL HISTORY: Fall. COMPARISON STUDY: CT of the brain dated 04/15/2019. TECHNIQUE: Unenhanced axial CT scan of the brain is performed from the vertex to the skull base. A dose lowering technique was utilized adhering to the principles of ALARA. FINDINGS: Brain parenchyma: There are age-related involutional changes noting moderate to advanced confluent subcortical and periventricular microangiopathic change. There is no hemorrhage, mass effect, or evidence of acute territorial ischemia by CT criteria. Mineralization is noted in the basal ganglia. Liriano-white matter differentiation is preserved. No extra-axial fluid collection is seen. Ventricles, sulci, cisterns: Prominent secondary to involutional change. Intracranial vasculature: There is atherosclerotic calcification of the cavernous carotid and vertebral arteries. Calvarium: The skeletal structures are osteopenic. There is no depressed calvarial fracture. Sinuses and mastoids: The visualized paranasal sinuses are clear. The mastoid air cells are well pneumatized. Orbits: The bony orbits are grossly intact. IMPRESSION: There is no hemorrhage, mass effect, or evidence of acute territorial ischemia by CT criteria. ACT 112: Negative or not required by law. Electronically signed by: Gregory Freeman M.D. 08/26/2020 1:49 PM XR chest 1V portable HISTORY: Shortness of breath. COMPARISON: Chest 08/12/2020. FINDINGS: No pneumothorax. No pleural effusions. The heart is normal in size. Left subclavian Port-A-Cath terminates at the SVC. Mild emphysema. The lungs are clear. Mild compression deformities within the mid thoracic spine are again noted. IMPRESSION: No significant change compared to the prior study. No acute process. ACT 112: Negative or not required by law. Electronically signed by: David Dickerson M.D. 08/26/2020 1:[address] OF THE CERVICAL SPINE CLINICAL HISTORY: Neck pain status post trauma COMPARISON STUDY: X-ray study dated 07/18/2019 CT DOSE: 862.21 mGy.cm TECHNIQUE: CT scan of the cervical spine was performed from the skull base to the thoracic inlet. Images are reviewed in the axial, sagittal, and coronal planes. IV contrast was not administered for this examination. A dose lowering technique was utilized adhering to the principles of ALARA. FINDINGS: The visualized portions of the lung apices reveal no evidence of pneumothorax. The prevertebral soft tissues are normal. No fractures or traumatic subluxations are visualized. There are advanced multilevel degenerative changes. There is 4 mm anterolisthesis of C3 on C4 which is felt to be degenerative. There is spinal stenosis most pronounced the C4-5 level. There is foraminal narrowing most pronounced at the C4-5 and C5-C6 levels. IMPRESSION: No evidence of acute fracture or traumatic subluxation. ACT 112: Negative or not required by law. Electronically signed by: Sanchez Lloyd M.D. 08/26/2020 1:52 PM ECG Data Attestation: I personally reviewed and interpreted this ECG as follows: Indication: + syncope Rate (beats per minute): 73 Rhythm: + normal sinus ECG [place]: + Normal ECG ST segments: + T-wave inversions (Biphasic T wave in V6 only); no ST elevation ECG Findings: no PVCs Blood Pressure Blood Pressure Findings: Elevated blood pressure Blood Pressure Disposition: Referred to patients primary care provider Head Trauma GCS Score: 15 MDM Narrative I did evaluate the patient as noted above. The patient is presenting with a syncopal episode today. She states she was on a chair and felt lightheaded and then slid down off the chair. She does complain of diffuse pain throughout her body but does not distinguish this pain is new from her prior pain. She just feels the incident has exacerbated all of her pain throughout her body. She does not localize anywhere. IV access was established. I did place an order for continuous cardiac monitoring. The monitor showed normal sinus rhythm at a rate of 85 bpm. I did order and personally review the patient's 12-lead EKG as described above. She had no acute ischemic changes. I did order and personally reviewed the images of the patient's chest x-ray as described above. There is no evidence of pneumonia. I did order a urine analysis. She does not have an infection. I did order and review the patient's blood work as noted in the electronic medical record. She has no leukocytosis or anemia. Electrolytes are unremarkable other than a mild elevation of her calcium at 10.6. She has had intermittent elevated calcium in the past. LFTs are unremarkable. Troponin is negative. I did order a CT of the head and cervical spine. I did review the images myself as well as the radiology report as described above. There is no evidence of acute intracranial process or cervical fracture. I did treat the patient with tramadol for her pain. I did discuss the test results with her. She is agreeable to hospitalization for further work-up of her syncope. I did discuss the case with the hospitalist and business case analyst. Impression & Plan Syncope, Head injury, Chronic pain syndrome, Hypercalcemia Discharge Plan Visit Data Chief Complaint: Fall Stated Complaint: fall/ gen. pain ED Provider: Pelon Riojas Discharge Problem: Syncope, Head injury, Chronic pain syndrome, Hypercalcemia Patient Disposition: Admitted As Inpatient Discharge Instructions Interventions: ED Discharge Assessment Last Done: 08/26/20 17:17 Discharge Problem: Syncope Qualifiers: Syncope type: unspecified Qualified Code(s): R55 - Syncope and collapse Head injury Qualifiers: Encounter type: initial encounter Qualified Code(s): S09.90XA - Unspecified injury of head, initial encounter
--- NOTE | 2020-08-26 13:16 | XRay Report ---
XR chest 1V portable HISTORY: Shortness of breath. COMPARISON: Chest 08/12/2020. FINDINGS: No pneumothorax. No pleural effusions. The heart is normal in size. Left subclavian Port-A- Cath terminates at the SVC. Mild emphysema. The lungs are clear. Mild compression deformities within the mid thoracic spine are again noted. IMPRESSION: No significant change compared to the prior study. No acute process. ACT 112: Negative or not required by law. Electronically signed by: David Dickerson M.D. 08/26/2020 1:15 PM
[2020-08-26 13:31] LABS: Basophils # (auto) 0.02 K/uL (0-0.2); Basophils % (auto) 0.3 %; Eosinophils # (auto) 0.09 K/uL (0-0.5); Eosinophils % (auto) 1.5 %; Hematocrit (blood only) 41.6 % (37-47); Hemoglobin 13.3 g/dL (12.0-16.0); Immature Granulocytes # (auto) 0.01 K/uL (0.00-0.02); Immature Granulocytes % (auto) 0.2 %; Lymphocytes % (auto) 21.9 %; Mean Corpuscular Hemoglobin 31.8 pg (25-34); Mean Corpuscular Volume 99.5 fL (80-100); Mean Platelet Volume 9.7 fL (7.4-10.4); Monocytes # (auto) 0.45 K/uL (0.11-0.59); Monocytes % (auto) 7.6 %; Neutrophils # (auto) 4.07 K/uL (1.4-6.5); Neutrophils % (auto) 68.5 %; Platelet Count 262 K/uL (130-400); RDW Coefficient of Variation 13.5 % (11.5-14.5); RDW Standard Deviation 48.7 fL (36.4-46.3); Red Blood Count 4.18 M/uL (4.2-5.4); White Blood Count 5.94 K/uL (4.8-10.8)
[2020-08-26 13:49] LABS: Alanine Aminotransferase 16 U/L (12-78); Albumin Level 3.9 gm/dl (3.4-5.0); Aspartate Aminotransferase 13 U/L (15-37); BUN Creatinine Ratio 31.7 (10-20); Blood Urea Nitrogen 35 mg/dl (7-18); Calcium 10.6 mg/dl (8.5-10.1); Carbon Dioxide 23 mmol/L (21-32); Chloride 112 mmol/L (98-107); Creatinine Clr Calc Pharmacy 24.2 ml/min; Est GFR (African American) 55.1; Est GFR (Non-African American) 47.6; Glucose 102 mg/dl (70-99); Magnesium 2.2 mg/dl (1.8-2.4); Potassium 4.1 mmol/L (3.5-5.1); Sodium 143 mmol/L (136-145)
--- NOTE | 2020-08-26 13:50 | CT Scan Report ---
CT SCAN OF THE BRAIN WITHOUT IV CONTRAST CLINICAL HISTORY: Fall. COMPARISON STUDY: CT of the brain dated 04/15/2019. TECHNIQUE: Unenhanced axial CT scan of the brain is performed from the vertex to the skull base. A do se lowering technique was utilized adhering to the principles of ALARA. FINDINGS: Brain parenchyma: There are age-related involutional changes noting moderate to advanced confluent s ubcortical and periventricular microangiopathic change. There is no hemorrhage, mass effect, or evide nce of acute territorial ischemia by CT criteria. Mineralization is noted in the basal ganglia. Liriano- white matter differentiation is preserved. No extra-axial fluid collection is seen. Ventricles, sulci, cisterns: Prominent secondary to involutional change. Intracranial vasculature: There is atherosclerotic calcification of the cavernous carotid and vertebr al arteries. Calvarium: The skeletal structures are osteopenic. There is no depressed calvarial fracture. Sinuses and mastoids: The visualized paranasal sinuses are clear. The mastoid air cells are well pneu matized. Orbits: The bony orbits are grossly intact. IMPRESSION: There is no hemorrhage, mass effect, or evidence of acute territorial ischemia by CT justyna alarcon. ACT 112: Negative or not required by law. Electronically signed by: Gregory Freeman M.D. 08/26/2020 1:49 PM
--- NOTE | 2020-08-26 13:54 | CT Scan Report ---
CT OF THE CERVICAL SPINE CLINICAL HISTORY: Neck pain status post trauma COMPARISON STUDY: X-ray study dated 07/18/2019 CT DOSE: 862.21 mGy.cm TECHNIQUE: CT scan of the cervical spine was performed from the skull base to the thoracic inlet. Amy ges are reviewed in the axial, sagittal, and coronal planes. IV contrast was not administered for thi s examination. A dose lowering technique was utilized adhering to the principles of ALARA. FINDINGS: The visualized portions of the lung apices reveal no evidence of pneumothorax. The prevertebral soft tissues are normal. No fractures or traumatic subluxations are visualized. There are advanced multilevel degenerative changes. There is 4 mm anterolisthesis of C3 on C4 which i s felt to be degenerative. There is spinal stenosis most pronounced the C4-5 level. There is foramina l narrowing most pronounced at the C4-5 and C5-C6 levels. IMPRESSION: No evidence of acute fracture or traumatic subluxation. ACT 112: Negative or not required by law. Electronically signed by: Sanchez Lloyd M.D. 08/26/2020 1:52 PM
[2020-08-26 13:59] LABS: Alkaline Phosphatase 102 U/L (45-117); Bilirubin,Total 0.5 mg/dl (0.2-1); Globulin 3.9 gm/dl (2.5-4.0); Thyroid Stimulating Hormone 0.486 uIu/ml (0.300-4.500); Total Protein 7.8 gm/dl (6.4-8.2); Troponin I < 0.015 ng/ml (0-0.045)
--- NOTE | 2020-08-26 14:59 | History & Physical Report ---
Date of Service August 26, 2020 Assessment & Plan (1) Syncope: This is an 80-year-old female who has significant past medical history of bipolar disorder, CKD stage III, COPD, tobacco abuse, hypothyroidism, chronic pain syndrome who presents to ED secondary to syncopal episode prior to fall. In ED patient remained hemodynamically stable. Her CBC and CMP were generally unremarkable except mild elevation BUN 35, creatinine 1.09, glucose 102, calcium 10.6. Her TSH was significantly reduced .486, On 08/12/[address] head/neck unrevealing. She did receive 50 mg oral tramadol while in ED. She was recommended to be admitted under observation to evaluate etiology of syncope. admit to med tele obtain carotid doppler monitor on TELE for any arrhythmias pt feels syncope is 2/2 to, "intense pain" case management consulted PT/OT obtain orthostatics, IVF 80cc/hr as pt does appear dry very possible syncope 2/2 to vasovagal in setting of pain but need to rule out other life threatening causes (2) Chronic generalized pain: pt with generalized arthralgias 2/2 to osteoarthritis, likely rotator cuff tear per Dr. Saucedo last admission multiple arthritic deformities APAP 325mg q6h, tramadol 50mg q4h prn PT/OT (3) CKD (chronic kidney disease), stage III: hx of nephrectomy 2/2 to kidney ca base cr 1.1 bun/cr 3 and 1.09 today appears dehydrated IVF 80cc/hr x 1 bag (4) Hypothyroidism: continue levothyroxine tsh .486 (recent admission levothyroxine increased from 88mcg to 125mg, previous TSH 38.7) recommend repeat tsh in 2 weeks (5) Bipolar disorder: continue lamictal (6) COPD (chronic obstructive pulmonary disease): hx of tobacco abuse still smokes but ~ 1 cig a day because of hand deformities declines nicotine patch (7) DVT prophylaxis: Heparin SQ Disposition: admit to med tele Follow up: PCP Dr. Blake upon discharge, consult case management as does not appear pt safe to return home alone without assistance as she is unable to eat b/c of hand deformities Pt was seen and examined in collaboration with Dr. Wilder, please see addendum History of Present Illness Chief Complaint: Syncope prior to arrival. Primary Care Provider: Aries Blake, This is an 80-year-old female who has significant past medical history of bipolar disorder, CKD stage III, COPD, tobacco abuse, hypothyroidism, chronic pain syndrome who presents to ED secondary to syncopal episode prior to fall. Patient elicits she was sitting in chair to watch TV whenever she, "blacked out." She feels she was out for approximately 2 minutes. She is unsure of the exact time but states, "it did not seem that long." She denies any presyncopal symptoms including dizziness, lightheadedness, diaphoresis, chest pain, shortness of breath or nausea. She admits to having similar episodes in the past, but did not come to hospital for evaluation. When on floor she rolled over and had her life alert button and EMS was summoned. She was then brought to ED. She currently lives at home. She states she may have passed out secondary to the, "intense pain." She states she is in pain all the time and Tylenol does nothing. She complains of pain, "all over her body." Pain secondary to arthritis. She denies any other recent illness, fever, chills, sweats, chest pain, short breath, cough, nausea, vomiting, abdominal pain, diarrhea, increased urgency or frequency with urination, melena, medic easier. She does admit to mild dysuria. She overall has poor p.o. intake and appetite because, "I cannot use my hands to eat." Of significance patient was recently admitted 08/12 to 08/14 secondary to generalized pain. She did undergo orthopedic evaluation by Dr. Saucedo. She was also treated for UTI with positive urine culture for E. coli and alpha strep. She received ceftriaxone and discharged on Bactrim. She further had elevated TSH at 30 and had titration of her levothyroxine to 125 mcg daily. She denies seeing PCP post hospitalization. In ED patient remained hemodynamically stable. Her CBC and CMP were generally unremarkable except mild elevation BUN 35, creatinine 1.09, glucose 102, calcium 10.6. Her TSH was significantly reduced .486, On 08/12/[address] head/neck unrevealing. She did receive 50 mg oral tramadol while in ED. She was recommended to be admitted under observation to evaluate etiology of syncope. Allergies Allergy/AdvReac Type Severity Reaction Status Date / Time Penicillins Allergy Mild RASH Verified 08/26/20 13:07 albuterol [From ProAir HFA] AdvReac Intermediate Dizziness Verified 08/26/20 13:07 Home Medications Home Medications Medication Instructions Recorded Confirmed Type Caltrate 600 plus D 1 tab PO BID 11/20/18 08/26/20 History lamotrigine [Lamictal] 25 mg PO BID 08/12/20 08/26/20 History docusate sodium 100 mg PO BID 30 Days #60 cap 08/14/20 08/26/20 Rx levothyroxine 125 mcg PO DAILY 30 Days #30 tab 08/14/20 08/26/20 Rx sennosides [Senokot] 8.6 mg PO QAM 30 Days #30 tab 08/14/20 08/26/20 Rx acetaminophen [Tylenol Extra 1,000 mg PO Q6H PRN 08/26/20 08/26/20 History Strength] Past Med/Surg History Medical History Altered mental status Bipolar disorder Bladder cancer CKD (chronic kidney disease), stage IV CKD (chronic kidney disease), stage IV COPD (chronic obstructive pulmonary disease) COPD (chronic obstructive pulmonary disease) Dizziness History of kidney cancer Hypothyroidism Intractable pain Malignant tumor of kidney Malignant tumor of urinary bladder Neuropathy Osteoarthritis S/p nephrectomy Tobacco abuse Tobacco abuse Urothelial cancer (~2010) UTI (urinary tract infection) Surgical History H/O dilation and curettage H/O: hysterectomy History of partial hysterectomy Hx of total knee arthroplasty S/p nephrectomy "Left" Family History Aunt Heart disease [place] in her 50s Mother Breast cancer Father Prostate cancer Social History Smoking Status: Current every day smoker Tobacco Type: Cigarettes Cigarettes Per Day: 7; Second Hand Exposure: No; Hx Alcohol Use: No Hx Substance Use: No Preferred Language: American Communication Ability: Effective Visual Impairment: No Limitations Hearing Ability: Normal Nylon Operator Required: No Beliefs That Will Affect Care: None marital status: / Current Living Situation: Alone Feels Safe at Home: Yes Assistive Devices: Glasses and Walker Review of Systems Review of Systems: All systems reviewed & are unremarkable except as noted in HPI & below Physical Exam Physical Exam: Constitutional: Thin, malnourished F, moaning of pain, vitals as above, NAD, sitting up in bed, answers questions appropriately, conversing easily Head: Normocephalic, Atraumatic Eyes: PERRL, conjunctivae normal, anicteric sclerae ENMT: external ear and nose normal, oropharynx normal Neck: trachea midline, no thyromegaly normal visual inspection Respiratory: normal respiratory effort, lungs clear to auscultation, no wheeze, rales, rhonchi. Normal insp/exp effort, no accessory muscle use Cardiovascular: RRR, no murmur, no edema Vessels: no JVD or carotid bruit Chest: normal inspection of chest Abdomen: normal bowel sounds, soft, nontender, no hepatosplenomegaly Musculoskeletal: + bouchards nodes to b/l hands no cyanosis or clubbing, extremities motor strength 5/5 Skin: no rashes, warm and dry moderate turgor Neurologic: PERRL, EOMI, accommodation nl, no face palsy, no dysarthria CN's II-XI intact bilaterally and moves all extremities Psychiatric: A+Ox3, euthymic affect : deferred Results & Data Results & Data ([facility]) Vital Signs (Past 12 Hours) Vital Signs Temp Pulse Resp BP Pulse Ox 08/26/20 14:50 75 18 95 08/26/20 14:40 76 23 94 08/26/20 14:31 74 29 H 94 08/26/20 14:30 74 15 125/81 95 08/26/20 14:20 75 24 96 08/26/20 14:10 81 23 95 08/26/20 14:01 74 26 H 95 08/26/20 14:00 68 15 133/78 96 08/26/20 13:56 80 17 96 08/26/20 13:55 79 29 H 127/85 96 08/26/20 13:54 77 15 08/26/20 13:30 75 27 H 08/26/20 13:20 77 20 08/26/20 11:38 37.1 C 84 18 126/72 97 08/26/20 11:36 77 17 126/72 Laboratory Results Short CBC 08/26/20 08/26/20 08/26/20 Range/Units 13:17 13:17 13:17 WBC 5.94 (4.8-10.8) K/uL Hgb 13.3 (12.0-16.0) g/dL Hct 41.6 (37-47) % Plt Count 262 (130-400) K/uL TSH 0.486 Cancelled (0.300-4.500) uIu/ml BMP 08/26/20 13:17 Sodium 143 Potassium 4.1 Chloride 112 H Carbon Dioxide 23 BUN 35 H Creatinine 1.09 Glucose 102 H Calcium 10.6 H Cardiac Enzymes 08/26/20 Range/Units 13:17 Troponin I < 0.015 (0-0.045) ng/ml Liver Function 08/26/20 Range/Units 13:17 Total Bilirubin 0.5 (0.2-1) mg/dl AST 13 L (15-37) U/L ALT 16 (12-78) U/L Alkaline Phosphatase 102 (45-117) U/L Albumin 3.9 (3.4-5.0) gm/dl Diagnostic Findings Head CT: FINDINGS: Brain parenchyma: There are age-related involutional changes noting moderate to advanced confluent subcortical and periventricular microangiopathic change. There is no hemorrhage, mass effect, or evidence of acute territorial ischemia by CT criteria. Mineralization is noted in the basal ganglia. Liriano-white matter differentiation is preserved. No extra-axial fluid collection is seen. Ventricles, sulci, cisterns: Prominent secondary to involutional change. Intracranial vasculature: There is atherosclerotic calcification of the c avernous carotid and vertebral arteries. Calvarium: The skeletal structures are osteopenic. There is no depressed calvarial fracture. Sinuses and mastoids: The visualized paranasal sinuses are clear. The mastoid air cells are well pneumatized. Orbits: The bony orbits are grossly intact. IMPRESSION: There is no hemorrhage, mass effect, or evidence of acute territorial ischemia by CT criteria. CXR: IMPRESSION: No significant change compared to the prior study. No acute process. Cspine CT: IMPRESSION: No evidence of acute fracture or traumatic subluxation. Medications Administered Discontinued Medications Tramadol HCl (Tramadol Hcl 50 Mg Tablet) 50 mg PO NOW STA Stop: 08/26/20 12:14 Last Admin: 08/26/20 12:38 Dose: 50 mg Documented by: [id number] ECG Rate (beats per minute): 73 Rhythm: normal sinus Code Status & VTE Plan Code Status DNR VTE Prophylaxis Plan VTE Prophylaxis will be ordered: Yes Supervising Physician Co-Signing Physician Notes I, Dr. Vadim Wilder, have seen and examined the patient Ayse Hou and also discussed the plans with physician assistant professor nurse education On Physical Exam General: able to sit up and answer all questions appropriately Heart: regular rate Lung: no crackles, no wheezing Abdomen: soft, Extremities: hand deformities from arthritis Neuro: moves all extremities Assessment and Plan -patient with chronic musculoskeletal pains, she lives at home alone and does not have any home health aides. Patient was watching TV and reports she slid off her chair and may have had passed out for 2 minutes. Patient then activated a Life Alert type device. Her neighbor helped her up and she was brought to hospital by EMS. -in the ED patient had negative head CT and given tramadol -will continue hospital evaluation by placing her under observation in case any recurrent syncope. -monitor on telemetry -will give IV fluids, check the lactic acid and creatinine kinase levels,- monitor the renal function -PT/OT assessments -prn pain medications -Underweight with BMI 14.9, analog design engineer consult. BOOST supplements. Also, case management consult because reports difficulty with cooking at home due to hand deformities from osteoarthritis -continue mood medications for history of bipolar disorder -her thyroid levels by TSH has improved significantly since recent previous hospital presentation on 08/12/2020 to 08/14/2020, continue current levothyroxine medication -attempted to reach her son Paxton Hou by phone and left voicemail [phone] -agree with other assessment and plans as documented by physician assistant professor nurse education -My colleague Dr. Murry will be the hospitalist attending starting on 08/27/2020
[2020-08-26] MEDS ORDERED: SODIUM CHLORIDE 0.9% 1000ML 1,000 ML IV SCH (15:00)
--- NOTE | 2020-08-26 15:52 | Ultrasound Report ---
ULTRASOUND OF THE CAROTID ARTERIES CLINICAL HISTORY: Syncope. COMPARISON STUDY: No priors. TECHNIQUE: Real-time, grayscale, and color Doppler sonography of the carotid arteries is performed. I mages are reviewed in the transverse and longitudinal planes. FINDINGS: The patient was unable to tolerate blood pressure assessment. The carotid arteries are patent bilaterally and demonstrate antegrade flow. There is moderate atheros clerotic plaque seen in the left carotid bulb. Milder plaque is noted on the right. Normal doppler ar terial waveforms are seen throughout. Velocity measurements are listed below. Common carotid peak systolic velocity (cm/sec): RIGHT: 69 LEFT: 54 ICA proximal peak systolic velocity (cm/sec): RIGHT: 63 LEFT: 50 ICA mid peak systolic velocity (cm/sec): RIGHT: 68 LEFT: 43 ICA distal peak systolic velocity (cm/sec): RIGHT: 57 LEFT: 66 ICA/CC peak systolic ratio: RIGHT: 1.0 LEFT: 1.2 Antegrade flow was shown in the vertebral arteries. The external carotid arteries are patent. IMPRESSION: 1. There is no sonographic evidence of hemodynamically significant stenosis in the right or left henry tid arterial system. 2. Antegrade flow is shown in the vertebral arteries. ACT 112: Negative or not required by law. Electronically signed by: Gregory Freeman M.D. 08/26/2020 3:51 PM
[2020-08-26 16:01] LABS: Creatine Kinase 46 U/L (26-192)
[2020-08-26] MEDS ORDERED: ACETAMINOPHEN 325 MG TAB ONE (16:19)
[2020-08-26 17:09] LABS: Appearance Urine Clear (Clear); Bacteria Urine Automated Negative (Negative); Bilirubin Urine Negative (Negative); Blood Urine Trace (Negative); Cast Urine Automated 0 /lpf (0-5); Color Urine Yellow; Epithelial Cell Urine Auto >30 /lpf (0-5); Glucose Urine UA Negative (Negative); Ketones Urine Negative (Negative); Leukocyte Esterase Urine Negative (Negative); Nitrite Urine Negative (Negative); Protein Urine Trace (Negative); RBC Urine Automated 0-4 /hpf (0-4); Specific Gravity Urine 1.017 (1.000-1.030); Urobilinogen Urine Negative (Negative); pH Urine 6.5 (4.5-7.5)
[2020-08-26] MEDS ORDERED: MAGNESIUM HYDROXIDE SUSP 30 ML UDC PO PRN (17:36)
[2020-08-26] MEDS ORDERED: POLYETHYLENE (MIRALAX) 17 GM PACK PO PRN (17:36)
[2020-08-26] MEDS ORDERED: ONDANSETRON INJ 2 MG/ML 2 ML VIAL IV PRN (17:36)
[2020-08-26] MEDS ORDERED: ACETAMINOPHEN 325 MG TAB PO PRN (17:36)
[2020-08-26] MEDS ORDERED: ALUMINUM/MAGNESIUM SUSP 30 ML UDC PO PRN (17:36)
[2020-08-26] MEDS: OXYCODONE HCL IR 5 MG TAB (IMMEDIATE RELEASE) PO PRN (17:47)
[2020-08-26] MEDS: HEPARIN SOD 5,000 UNIT/0.5 ML VIAL SQ SCH (20:17)
[2020-08-26] MEDS: lamoTRIgine 25 MG TAB PO SCH (20:17)
[2020-08-26] MEDS: CALCIUM 600MG + VIT D 400 IU TAB PO SCH (20:17)
[2020-08-26] MEDS: DOCUSATE SODIUM 100 MG CAP PO SCH (20:17)
[2020-08-26] MEDS: TRAMADOL HCL 50 MG TABLET PO PRN (22:19)
[2020-08-27] MEDS: OXYCODONE HCL IR 5 MG TAB (IMMEDIATE RELEASE) PO PRN ×3 (00:35→18:07)
[2020-08-27] MEDS: TRAMADOL HCL 50 MG TABLET PO PRN (03:21)
--- NOTE | 2020-08-27 06:05 | Electrocardiogram Report ---
Test Reason : Blood Pressure : / mmHG Vent. Rate : 073 BPM Atrial Rate : 073 BPM P-R Int : 190 ms QRS Dur : 074 ms QT Int : 364 ms P-R-T Axes : 070 064 066 degrees QTc Int : 401 ms Normal sinus rhythm Possible Left atrial enlargement Septal infarct , age undetermined Abnormal ECG When compared with ECG of 15-AUG-2020 05:57, Septal infarct is now Present Confirmed by Ottoniel Mcginnis ([id number]) on 08/27/2020 6:05:38 AM Referred By: REFERRED SELF Confirmed By:Ottoniel Mcginnis
[2020-08-27] MEDS ORDERED: LEVOTHYROXINE SODIUM 125 MCG TABLET PO SCH (06:30)
[2020-08-27] MEDS: DOCUSATE SODIUM 100 MG CAP PO SCH ×2 (08:44→21:10)
--- NOTE | 2020-08-27 08:44 | Hospitalist Progress Note ---
Date of Service August 27, 2020 Assessment & Plan (1) Syncope: 80-year-old female who has significant past medical history of bipolar disorder, CKD stage III, COPD, tobacco abuse, hypothyroidism, chronic pain syndrome who presents to ED secondary to syncopal episode prior to fall. Hemodynamically stable since admission CT head - unremarkable Carotid doppler unremarkable monitor tech overnight was sinus rhythm with PVCs Check Mag and phos and replete as needed Reported to be dehydrated on admission. Got some IVF. Does not appear dehydrated at this time Get PT/OT evaluation Check orthostatic vitals (2) Chronic generalized pain: Generalized arthralgias 2/2 to osteoarthritis, likely rotator cuff tear per Dr. 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 Baseline cr 1.1 Cr at baseline Reported to be dehydrated on admission Got IVF for dehydration Encourage po hydration Does not appear dehydrated this morning (4) Hypothyroidism: TSH - 0.486 (recent admission levothyroxine increased from 88mcg to 125mg, previous TSH 38.7) Reduce levothyroxine to 100mcg daily and recheck TSH in 6 weeks (5) Bipolar disorder: Continue lamictal (6) COPD (chronic obstructive pulmonary disease): Hx of tobacco abuse still smokes but ~ 1 cig a day because of hand deformities Counselled on smoking cessation (7) Severe malnutrition: BMI 14.6 Reports some weight loss Looks cachetic on exam Appreciate nutrition eval and recommendations (8) DVT prophylaxis: Heparin SQ Disposition: Case management to assess home needs/safety Admission and Anticipated Discharge Date Admission Date: August 26, 2020 Subjective Patient seen and examined. Reports some mild dizziness earlier No syncope No chest pain, palpitations, SOB, ASHBY No nausea, vomiting, abd pain, diarrhea No anorexia She reports chronic knee and shoulder pain from arthritis Reports occasionally paresthesia in feet Physical Exam Constitutional: + well hydrated and + cachectic (Muscle wasting, bony prominences); no acute distress Eyes: PERRL, conjunctivae normal, anicteric sclerae ENMT: external ear and nose normal, oropharynx normal Respiratory: normal respiratory effort, lungs clear to auscultation Cardiovascular: Rate/Rhythm: regular rate and regular rhythm S1 S2. No pedal edema Gastrointestinal (Abdomen): normal bowel sounds, soft, nontender, no hepatosplenomegaly Musculoskeletal: Soraya's node, arthritic joint deformities in interphalangeal joints of both arms. Non tender. Neurologic: PERRL, EOMI, accommodation nl, no face palsy, no dysarthria Psychiatric: A+Ox3, euthymic affect Results & Data Results & Data ([facility]) Vital Signs (Past 12 Hours) Vital Signs Temp Pulse Pulse Resp BP Pulse Ox 08/27/20 08:04 36.8 C 72 18 125/68 93 08/27/20 07:28 68 08/27/20 04:52 87 08/27/20 04:11 36.7 C 66 18 129/71 91 08/26/20 23:00 37.1 C 69 18 132/72 93 Laboratory Results Laboratory Results - last 24 hr 08/26/20 08/26/20 08/26/20 13:17 13:17 13:17 WBC 5.94 RBC 4.18 L Hgb 13.3 Hct 41.6 MCV 99.5 MCH 31.8 MCHC 32.0 RDW Std Deviation 48.7 H RDW Coeff of Margarito 13.5 Plt Count 262 MPV 9.7 Immature Gran % (Auto) 0.2 Neut % (Auto) 68.5 Lymph % (Auto) 21.9 Rogers % (Auto) 7.6 Eos % (Auto) 1.5 Baso % (Auto) 0.3 Neut # (Auto) 4.07 Lymph # (Auto) 1.30 Rogers # (Auto) 0.45 Eos # (Auto) 0.09 Baso # (Auto) 0.02 Immature Gran # (Auto) 0.01 Sodium 143 Potassium 4.1 Chloride 112 H Carbon Dioxide 23 Anion Gap 8.0 BUN 35 H Creatinine 1.09 Est Cr Clr Drug Dosing 24.2 Est GFR ( Amer) 55.1 Est GFR (Non-Af Amer) 47.6 BUN/Creatinine Ratio 31.7 H Glucose 102 H Lactate Calcium 10.6 H Magnesium 2.2 Cancelled Total Bilirubin 0.5 AST 13 L ALT 16 Alkaline Phosphatase 102 Total Creatine Kinase 46 Troponin I < 0.015 Total Protein 7.8 Albumin 3.9 Globulin 3.9 Albumin/Globulin Ratio 1.0 TSH 0.486 Cancelled Urine Color Urine Appearance Urine pH Ur Specific [place] Urine Protein Urine Glucose (UA) Urine Ketones Urine Blood Urine Nitrite Urine Bilirubin Urine Urobilinogen Ur Leukocyte Esterase Urine WBC (Auto) Urine RBC (Auto) U Hyaline Cast (Auto) U Epithel Cells (Auto) Urine Bacteria (Auto) 08/26/20 08/26/20 08/26/20 13:17 16:25 16:41 WBC RBC Hgb Hct MCV MCH MCHC RDW Std Deviation RDW Coeff of Margarito Plt Count MPV Immature Gran % (Auto) Neut % (Auto) Lymph % (Auto) Rogers % (Auto) Eos % (Auto) Baso % (Auto) Neut # (Auto) Lymph # (Auto) Rogers # (Auto) Eos # (Auto) Baso # (Auto) Immature Gran # (Auto) Sodium Potassium Chloride Carbon Dioxide Anion Gap BUN Creatinine Est Cr Clr Drug Dosing Est GFR ( Amer) Est GFR (Non-Af Amer) BUN/Creatinine Ratio Glucose Lactate 0.7 Calcium Magnesium Total Bilirubin AST ALT Alkaline Phosphatase Total Creatine Kinase Cancelled Troponin I Total Protein Albumin Globulin Albumin/Globulin Ratio TSH Urine Color Yellow Urine Appearance Clear Urine pH 6.5 Ur Specific [place] 1.017 Urine Protein Trace H Urine Glucose (UA) Negative Urine Ketones Negative Urine Blood Trace H Urine Nitrite Negative Urine Bilirubin Negative Urine Urobilinogen Negative Ur Leukocyte Esterase Negative Urine WBC (Auto) 1-5 Urine RBC (Auto) 0-4 U Hyaline Cast (Auto) 0 U Epithel Cells (Auto) >30 H Urine Bacteria (Auto) Negative Diagnostic Findings Carotid doppler The patient was unable to tolerate blood pressure assessment. The carotid arteries are patent bilaterally and demonstrate antegrade flow. There is moderate atherosclerotic plaque seen in the left carotid bulb. Milder plaque is noted on the right. Normal doppler arterial waveforms are seen throughout. Velocity measurements are listed below. Common carotid peak systolic velocity (cm/sec): RIGHT: 69 LEFT: 54 ICA proximal peak systolic velocity (cm/sec): RIGHT: 63 LEFT: 50 ICA mid peak systolic velocity (cm/sec): RIGHT: 68 LEFT: 43 ICA distal peak systolic velocity (cm/sec): RIGHT: 57 LEFT: 66 ICA/CC peak systolic ratio: RIGHT: 1.0 LEFT: 1.2 Antegrade flow was shown in the vertebral arteries. The external carotid arteries are patent. IMPRESSION: 1. There is no sonographic evidence of hemodynamically significant stenosis in the right or left carotid arterial system. 2. Antegrade flow is shown in the vertebral arteries. CT HEAD Brain parenchyma: There are age-related involutional changes noting moderate to advanced confluent subcortical and periventricular microangiopathic change. There is no hemorrhage, mass effect, or evidence of acute territorial ischemia by CT criteria. Mineralization is noted in the basal ganglia. Liriano-white matter differentiation is preserved. No extra-axial fluid collection is seen. Ventricles, sulci, cisterns: Prominent secondary to involutional change. Intracranial vasculature: There is atherosclerotic calcification of the cavernous carotid and vertebral arteries. Calvarium: The skeletal structures are osteopenic. There is no depressed calvarial fracture. Sinuses and mastoids: The visualized paranasal sinuses are clear. The mastoid air cells are well pneumatized. Orbits: The bony orbits are grossly intact. IMPRESSION: There is no hemorrhage, mass effect, or evidence of acute territorial ischemia by CT criteria. (1) Syncope Syncope type: unspecified Qualified Code(s): R55 - Syncope and collapse
[2020-08-27] MEDS: HEPARIN SOD 5,000 UNIT/0.5 ML VIAL SQ SCH ×2 (08:45→21:14)
[2020-08-27] MEDS: SENNA 8.6 MG TAB PO SCH (08:45)
[2020-08-27] MEDS: lamoTRIgine 25 MG TAB PO SCH ×2 (08:46→21:10)
[2020-08-27] MEDS: CALCIUM 600MG + VIT D 400 IU TAB PO SCH ×2 (08:46→21:10)
[2020-08-27 11:00] LABS: Magnesium 1.8 mg/dl (1.8-2.4); Phosphorus 3.3 mg/dl (2.5-4.9)
--- NOTE | 2020-08-27 22:39 | Electrocardiogram Report ---
Test Reason : Blood Pressure : / mmHG Vent. Rate : 068 BPM Atrial Rate : 068 BPM P-R Int : 188 ms QRS Dur : 078 ms QT Int : 376 ms P-R-T Axes : 061 058 019 degrees QTc Int : 399 ms Normal sinus rhythm Normal ECG When compared with ECG of 26-AUG-2020 13:19, Criteria for Septal infarct are no longer Present T wave inversion now evident in Inferior leads T wave amplitude has increased in Anterior leads Confirmed by Ottoniel Mcginnis ([id number]) on 08/27/2020 10:38:59 PM Referred By: REFERRED SELF Confirmed By:Ottoniel Mcginnis
[2020-08-28] MEDS: LEVOTHYROXINE SODIUM 100 MCG TABLET PO SCH (05:59)
[2020-08-28] MEDS: OXYCODONE HCL IR 5 MG TAB (IMMEDIATE RELEASE) PO PRN (05:59)
[2020-08-28 08:21] LABS: Hematocrit (blood only) 42.2 % (37-47); Hemoglobin 13.3 g/dL (12.0-16.0); Mean Corpuscular Hemoglobin 31.1 pg (25-34); Mean Corpuscular Hgb Conc 31.5 g/dL (32-36); Mean Corpuscular Volume 98.8 fL (80-100); Mean Platelet Volume 9.7 fL (7.4-10.4); Platelet Count 253 K/uL (130-400); RDW Coefficient of Variation 13.4 % (11.5-14.5); Red Blood Count 4.27 M/uL (4.2-5.4); White Blood Count 4.62 K/uL (4.8-10.8)
[2020-08-28] MEDS: CALCIUM 600MG + VIT D 400 IU TAB PO SCH ×2 (08:50→21:04)
[2020-08-28] MEDS: lamoTRIgine 25 MG TAB PO SCH ×2 (08:51→21:04)
[2020-08-28] MEDS: SENNA 8.6 MG TAB PO SCH (08:51)
[2020-08-28] MEDS: HEPARIN SOD 5,000 UNIT/0.5 ML VIAL SQ SCH ×4 (08:51→21:09)
[2020-08-28] MEDS: DOCUSATE SODIUM 100 MG CAP PO SCH ×2 (08:51→21:04)
[2020-08-28 08:57] LABS: BUN Creatinine Ratio 30.9 (10-20); Calcium 10.6 mg/dl (8.5-10.1); Creatinine Clr Calc Pharmacy 23.6 ml/min; Est GFR (African American) 47.2; Est GFR (Non-African American) 40.7; Potassium 4.1 mmol/L (3.5-5.1)
[2020-08-28 08:58] LABS: Phosphorus 3.6 mg/dl (2.5-4.9)
--- NOTE | 2020-08-28 09:50 | Hospitalist Progress Note ---
Date of Service August 28, 2020 Assessment & Plan (1) Syncope: 80-year-old female who has significant past medical history of bipolar disorder, CKD stage III, COPD, tobacco abuse, hypothyroidism, chronic pain syndrome who presents to ED secondary to syncopal episode prior to fall. Hemodynamically stable since admission CT head - unremarkable Carotid doppler unremarkable PT/OT recommend inpatient rehab Patient interested in exploring rehab options Informed CM who will discuss further with patient (2) Chronic generalized pain: Generalized arthralgias 2/2 to osteoarthritis, likely rotator cuff tear per Dr. 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 Baseline cr 1.1 Cr is 1.24 today Reported to be dehydrated on admission Got IVF for dehydration Encourage po hydration Does not appear dehydrated this morning (4) Hypothyroidism: TSH - 0.486 (recent admission levothyroxine increased from 88mcg to 125mg, previous TSH 38.7) Reduce levothyroxine to 100mcg daily and recheck TSH in 6 weeks (5) Bipolar disorder: Continue lamictal (6) COPD (chronic obstructive pulmonary disease): Hx of tobacco abuse still smokes but ~ 1 cig a day because of hand deformities Counselled on smoking cessation (7) Severe malnutrition: BMI 14.6 Reports some weight loss Looks cachetic on exam Nutrition recommendations noted Started on boost TID (8) DVT prophylaxis: Heparin SQ Disposition: Will follow up further discussion with patient and CM about rehab options Admission and Anticipated Discharge Date Admission Date: August 26, 2020 Subjective Patient seen and examined No more episode of syncope No chest pain, palpitations, SOB, ASHBY No nausea, vomiting, abd pain, diarrhea No anorexia She reports chronic knee and shoulder pain from arthritis Occasional paresthesia in feet Physical Exam Constitutional: + well hydrated and + cachectic (Muscle wasting, bony prominences); no acute distress Eyes: PERRL, conjunctivae normal, anicteric sclerae ENMT: external ear and nose normal, oropharynx normal Respiratory: normal respiratory effort, lungs clear to auscultation Cardiovascular: Rate/Rhythm: regular rate and regular rhythm Gastrointestinal (Abdomen): normal bowel sounds, soft, nontender, no hepatosplenomegaly Musculoskeletal: Soraya's node, arthritic joint deformities in interphalangeal joints of both arms. No tenderness over hand joints and knees Neurologic: PERRL, EOMI, accommodation nl, no face palsy, no dysarthria Psychiatric: A+Ox3, euthymic affect Results & Data Results & Data ([facility]) Vital Signs (Past 12 Hours) Vital Signs Temp Pulse Pulse Resp BP Pulse Ox 08/28/20 07:43 36.9 C 65 17 104/59 L 92 08/28/20 04:40 36.9 C 62 18 122/69 92 08/27/20 23:53 37 C 69 18 114/64 94 08/27/20 23:47 62 Laboratory Results Laboratory Results - last 24 hr 08/27/20 08/28/20 08/28/20 10:21 08:07 08:07 WBC 4.62 L RBC 4.27 Hgb 13.3 Hct 42.2 MCV 98.8 MCH 31.1 MCHC 31.5 L RDW Std Deviation 48.0 H RDW Coeff of Margarito 13.4 Plt Count 253 MPV 9.7 Sodium 141 Potassium 4.1 Chloride 109 H Carbon Dioxide 24 Anion Gap 8.0 BUN 38 H Creatinine 1.24 H Est Cr Clr Drug Dosing 23.6 Est GFR ( Amer) 47.2 Est GFR (Non-Af Amer) 40.7 BUN/Creatinine Ratio 30.9 H Glucose 107 H Calcium 10.6 H Phosphorus 3.3 3.6 Magnesium 1.8 2.0 (1) Syncope Syncope type: unspecified Qualified Code(s): R55 - Syncope and collapse
[2020-08-28] MEDS ORDERED: HEPARIN 100 UNIT/ML 5ML FLUSH FLUSH STA (12:10)
[2020-08-28] MEDS: TRAMADOL HCL 50 MG TABLET PO PRN ×2 (16:57→21:07)
[2020-08-29] MEDS: TRAMADOL HCL 50 MG TABLET PO PRN ×3 (01:50→16:37)
[2020-08-29] MEDS: LEVOTHYROXINE SODIUM 100 MCG TABLET PO SCH (05:49)
[2020-08-29 06:32] LABS: BUN Creatinine Ratio 36.3 (10-20); Calcium 9.7 mg/dl (8.5-10.1); Creatinine Clr Calc Pharmacy 26.1 ml/min; Est GFR (African American) 53.4; Potassium 4.2 mmol/L (3.5-5.1)
[2020-08-29] MEDS ORDERED: MELATONIN 3 MG TAB PO ONE (08:19)
--- NOTE | 2020-08-29 08:19 | Hospitalist Progress Note ---
Date of Service August 29, 2020 Assessment & Plan (1) Syncope: 80-year-old female who has significant past medical history of bipolar disorder, CKD stage III, COPD, tobacco abuse, hypothyroidism, chronic pain syndrome who presents to ED secondary to syncopal episode prior to fall. Hemodynamically stable since admission CT head - unremarkable Carotid doppler unremarkable PT/OT recommend inpatient rehab CM working on rehab placement (2) Chronic generalized pain: Generalized arthralgias 2/2 to osteoarthritis, likely rotator cuff tear per Dr. Saucedo last admission Multiple arthritic deformities Continue tylenol prn and tramadol prn Explained pain management. Patient was ok with this. Increased tylenol to 650mg q6h prn Explained we do not give "tranquilizer' for sleep. Offered melatonin and she was ok with this (3) CKD (chronic kidney disease), stage III: Hx of nephrectomy 2/2 to kidney ca Baseline cr 1.1 Cr is 1.12 today Reported to be dehydrated on admission Got IVF for dehydration (4) Hypothyroidism: TSH - 0.486 (recent admission levothyroxine increased from 88mcg to 125mg, previous TSH 38.7) Continue reduced levothyroxine to 100mcg daily and recheck TSH in 6 weeks (5) Bipolar disorder: Continue lamictal (6) COPD (chronic obstructive pulmonary disease): Hx of tobacco abuse still smokes but ~ 1 cig a day because of hand deformities Counselled on smoking cessation (7) Severe malnutrition: BMI 14.6 Reports some weight loss Looks cachetic on exam Nutrition recommendations noted Continue boost TID (8) DVT prophylaxis: Heparin SQ Disposition: Will follow up placement plans tomorrow Admission and Anticipated Discharge Date Admission Date: August 28, 2020 Subjective Patient seen and examined Patient reports only arthritic pain at joints She stated she did not sleep well due to discomfort for the pain She asked for a "tranquilizer" to help her sleep Denied all other complaints on ROS Physical Exam Constitutional: + well hydrated and + cachectic (Muscle wasting, bony prominences); no acute distress Eyes: PERRL, conjunctivae normal, anicteric sclerae ENMT: external ear and nose normal, oropharynx normal Respiratory: normal respiratory effort, lungs clear to auscultation Cardiovascular: Rate/Rhythm: regular rate and regular rhythm Extremities: no edema S1 S2 Gastrointestinal (Abdomen): normal bowel sounds, soft, nontender, no hepatosplenomegaly Neurologic: PERRL, EOMI, accommodation nl, no face palsy, no dysarthria Psychiatric: A+Ox3, euthymic affect Results & Data Results & Data ([facility]) Vital Signs (Past 12 Hours) Vital Signs Temp Pulse Pulse Resp BP Pulse Ox 08/29/20 07:13 63 08/29/20 04:28 36.7 C 64 18 123/75 95 08/28/20 23:00 67 08/28/20 22:06 36.8 C 65 16 136/76 93 Laboratory Results Laboratory Results - last 24 hr 08/29/20 05:32 Sodium 141 Potassium 4.2 Chloride 110 H Carbon Dioxide 28 Anion Gap 3.0 BUN 41 H Creatinine 1.12 Est Cr Clr Drug Dosing 26.1 Est GFR ( Amer) 53.4 Est GFR (Non-Af Amer) 46.0 BUN/Creatinine Ratio 36.3 H Glucose 86 Calcium 9.7 (1) Syncope Syncope type: unspecified Qualified Code(s): R55 - Syncope and collapse
[2020-08-29] MEDS: SENNA 8.6 MG TAB PO SCH (08:47)
[2020-08-29] MEDS: DOCUSATE SODIUM 100 MG CAP PO SCH ×2 (08:47→20:01)
[2020-08-29] MEDS: lamoTRIgine 25 MG TAB PO SCH ×2 (08:47→20:01)
[2020-08-29] MEDS: HEPARIN SOD 5,000 UNIT/0.5 ML VIAL SQ SCH ×2 (08:48→20:02)
[2020-08-29] MEDS: CALCIUM 600MG + VIT D 400 IU TAB PO SCH ×2 (08:48→20:01)
[2020-08-29] MEDS: ACETAMINOPHEN 325 MG TAB PO PRN (22:57)
[2020-08-30] MEDS: TRAMADOL HCL 50 MG TABLET PO PRN ×4 (01:57→20:01)
[2020-08-30] MEDS: ACETAMINOPHEN 325 MG TAB PO PRN ×2 (04:45→16:30)
[2020-08-30] MEDS: LEVOTHYROXINE SODIUM 100 MCG TABLET PO SCH (06:05)
[2020-08-30] MEDS: lamoTRIgine 25 MG TAB PO SCH ×2 (07:32→20:01)
[2020-08-30] MEDS: CALCIUM 600MG + VIT D 400 IU TAB PO SCH ×2 (07:33→20:00)
[2020-08-30] MEDS: DOCUSATE SODIUM 100 MG CAP PO SCH ×2 (07:33→20:00)
[2020-08-30] MEDS: SENNA 8.6 MG TAB PO SCH (08:21)
[2020-08-30] MEDS: HEPARIN SOD 5,000 UNIT/0.5 ML VIAL SQ SCH ×2 (08:21→20:00)
--- NOTE | 2020-08-30 09:38 | Hospitalist Progress Note ---
Date of Service August 30, 2020 Assessment & Plan (1) Syncope: 80-year-old female who has significant past medical history of bipolar disorder, CKD stage III, COPD, tobacco abuse, hypothyroidism, chronic pain syndrome who presents to ED secondary to syncopal episode prior to fall. Hemodynamically stable since admission CT head - unremarkable Carotid doppler unremarkable PT/OT recommend inpatient rehab CM working on rehab placement (2) Chronic generalized pain: Generalized arthralgias 2/2 to osteoarthritis, likely rotator cuff tear per Dr. 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 Baseline cr 1.1 Reported to be dehydrated on admission Got IVF for dehydration Currently not dehydrated and tolerating po diet well (4) Hypothyroidism: TSH - 0.486 (recent admission levothyroxine increased from 88mcg to 125mg, previous TSH 38.7) Continue reduced levothyroxine to 100mcg daily and recheck TSH in 6 weeks (5) Bipolar disorder: Continue lamictal (6) COPD (chronic obstructive pulmonary disease): Hx of tobacco abuse still smokes but ~ 1 cig a day because of hand deformities Counselled on smoking cessation (7) Severe malnutrition: BMI 14.6 Reports some weight loss Looks cachetic on exam Nutrition recommendations noted Continue boost TID (8) DVT prophylaxis: Heparin SQ Disposition: Will discharge as soon as placement is complete Admission and Anticipated Discharge Date Admission Date: August 28, 2020 Subjective Patient seen and examined. Reports joint soreness from arthritis. Reported she did not sleep well enough yesterday and was requesting for something besides melatonin. However, RN reported patient slept all day after getting melatonin yesterday morning. Denied any other complaints Physical Exam Constitutional: + well hydrated and + cachectic (Muscle wasting, bony prominences); no acute distress Eyes: PERRL, conjunctivae normal, anicteric sclerae ENMT: external ear and nose normal, oropharynx normal Respiratory: normal respiratory effort, lungs clear to auscultation Cardiovascular: Rate/Rhythm: regular rate and regular rhythm Extremities: no edema Gastrointestinal (Abdomen): normal bowel sounds, soft, nontender, no hepatosplenomegaly Musculoskeletal: Soraya's node, arthritic joint deformities in interphalangeal joints of both arms. No tenderness over hands. No limitation of movement of shoulders Neurologic: PERRL, EOMI, accommodation nl, no face palsy, no dysarthria Psychiatric: A+Ox3, euthymic affect Results & Data Results & Data ([facility]) Vital Signs (Past 12 Hours) Vital Signs Temp Pulse Pulse Resp BP Pulse Ox 08/30/20 07:41 36.9 C 70 20 130/72 96 08/30/20 07:22 65 08/30/20 02:40 36.6 C 58 L 18 121/70 96 08/29/20 22:52 36.6 C 59 L 18 107/69 93 08/29/20 22:20 59 L Laboratory Results Laboratory Results - last 24 hr 08/29/20 08/29/20 Unknown Unknown COVID-19 Eval [facility] SARS-CoV-2, RNA, NAAT NEGATIVE (1) Syncope Syncope type: unspecified Qualified Code(s): R55 - Syncope and collapse
[2020-08-30] MEDS: MELATONIN 3 MG TAB PO PRN (20:01)
[2020-08-31] MEDS: ACETAMINOPHEN 325 MG TAB PO PRN ×2 (03:45→10:37)
[2020-08-31] MEDS: LEVOTHYROXINE SODIUM 100 MCG TABLET PO SCH (05:57)
[2020-08-31] MEDS: TRAMADOL HCL 50 MG TABLET PO PRN ×2 (09:18→16:18)
[2020-08-31] MEDS: CALCIUM 600MG + VIT D 400 IU TAB PO SCH ×2 (09:19→20:36)
[2020-08-31] MEDS: SENNA 8.6 MG TAB PO SCH (09:19)
[2020-08-31] MEDS: lamoTRIgine 25 MG TAB PO SCH ×2 (09:19→20:36)
[2020-08-31] MEDS: DOCUSATE SODIUM 100 MG CAP PO SCH ×2 (09:19→20:37)
[2020-08-31] MEDS: HEPARIN SOD 5,000 UNIT/0.5 ML VIAL SQ SCH ×2 (09:20→20:37)
--- NOTE | 2020-08-31 10:07 | Hospitalist Progress Note ---
Date of Service August 31, 2020 Assessment & Plan (1) Syncope: 80-year-old female who has significant past medical history of bipolar disorder, CKD stage III, COPD, tobacco abuse, hypothyroidism, chronic pain syndrome who presents to ED secondary to syncopal episode prior to fall. Hemodynamically stable since admission CT head - unremarkable Carotid doppler unremarkable PT/OT recommend inpatient rehab CM working on rehab placement (2) Chronic generalized pain: Generalized arthralgias 2/2 to osteoarthritis, likely rotator cuff tear per Dr. 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 Baseline cr 1.1 Reported to be dehydrated on admission Got IVF for dehydration Currently not dehydrated and tolerating po diet well (4) Hypothyroidism: TSH - 0.486 (recent admission levothyroxine increased from 88mcg to 125mg, previous TSH 38.7) Continue reduced levothyroxine to 100mcg daily on discharge and recheck TSH in 6 weeks (5) Bipolar disorder: Continue lamictal (6) COPD (chronic obstructive pulmonary disease): Hx of tobacco abuse still smokes but ~ 1 cig a day because of hand deformities Counselled on smoking cessation (7) Severe malnutrition: BMI 14.6 Nutrition recommendations noted Continue boost TID on discharge (8) DVT prophylaxis: Heparin SQ Disposition: Will discharge as soon as placement is available CM working on placement Admission and Anticipated Discharge Date Admission Date: August 28, 2020 Subjective Patient seen and examined Reports joint stiffness especially in AM and pain Pain intermittently controlled by tylenol Denied any other symptoms Physical Exam Constitutional: + well hydrated and + cachectic (Muscle wasting, bony prominences); no acute distress Eyes: PERRL, conjunctivae normal, anicteric sclerae ENMT: external ear and nose normal, oropharynx normal Respiratory: normal respiratory effort, lungs clear to auscultation Cardiovascular: Rate/Rhythm: regular rate and regular rhythm Extremities: no edema Gastrointestinal (Abdomen): normal bowel sounds, soft, nontender, no h epatosplenomegaly Musculoskeletal: Joint deformities in hand and interphalangeal joints Neurologic: PERRL, EOMI, accommodation nl, no face palsy, no dysarthria Psychiatric: A+Ox3, euthymic affect Results & Data Results & Data ([facility]) Vital Signs (Past 12 Hours) Vital Signs Temp Pulse Resp BP Pulse Ox 08/31/20 07:01 36.7 C 64 20 122/68 95 08/30/20 23:06 36.8 C 58 L 20 120/68 95 (1) Syncope Syncope type: unspecified Qualified Code(s): R55 - Syncope and collapse
[2020-08-31] MEDS: MELATONIN 3 MG TAB PO PRN (20:35)
[2020-09-01] MEDS: TRAMADOL HCL 50 MG TABLET PO PRN ×5 (01:28→20:55)
[2020-09-01] MEDS: ACETAMINOPHEN 325 MG TAB PO PRN (03:05)
[2020-09-01] MEDS: LEVOTHYROXINE SODIUM 100 MCG TABLET PO SCH (05:28)
[2020-09-01] MEDS: DOCUSATE SODIUM 100 MG CAP PO SCH ×2 (08:32→20:47)
[2020-09-01] MEDS: lamoTRIgine 25 MG TAB PO SCH ×2 (08:32→20:47)
[2020-09-01] MEDS: CALCIUM 600MG + VIT D 400 IU TAB PO SCH ×2 (08:32→20:48)
[2020-09-01] MEDS: HEPARIN SOD 5,000 UNIT/0.5 ML VIAL SQ SCH ×2 (08:33→20:48)
[2020-09-01] MEDS: SENNA 8.6 MG TAB PO SCH ×2 (08:33→08:39)
--- NOTE | 2020-09-01 19:24 | Hospitalist Progress Note ---
Date of Service September 01, 2020 Assessment & Plan (1) Syncope: 80-year-old female who has significant past medical history of bipolar disorder, CKD stage III, COPD, tobacco abuse, hypothyroidism, chronic pain syndrome who presents to ED secondary to syncopal episode prior to fall. CT head - unremarkable Carotid doppler unremarkable PT/OT recommend inpatient rehab stable overall d/c to [facility] tomorrow per CM (2) Chronic generalized pain: Generalized arthralgias 2/2 to osteoarthritis, likely rotator cuff tear per Dr. 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 Reported to be dehydrated on admission given IV fluids stable (4) Hypothyroidism: TSH - 0.486 (recent admission levothyroxine increased from 88mcg to 125mg, previous TSH 38.7) Continue reduced levothyroxine to 100mcg daily on discharge and recheck TSH in 6 weeks (5) Bipolar disorder: Continue lamictal (6) COPD (chronic obstructive pulmonary disease): Hx of tobacco abuse still smokes but ~ 1 cig a day because of hand deformities Counselled on smoking cessation (7) Severe malnutrition: BMI 14.6 Claims Account Manager consulted Continue boost TID on discharge (8) DVT prophylaxis: Heparin SQ Disposition: d/c to [facility] tomorrow Admission and Anticipated Discharge Date Admission Date: August 28, 2020 Subjective ff up for syncope, etc seen resting in bed, not in distress states she feels fine overall except for generalized pain improving with Tramadol denies dizziness, chest pain, SOB, palpitations feels weak when ambulating no other symptoms Review of Systems Review of Systems: All systems reviewed & are unremarkable except as noted in Subjective Physical Exam Physical Exam: General- oriented x 3, not in distress, speaks in sentences with no effort or accessory muscle use Eyes- anicteric Neck- no JVD Lungs- clear breath sounds bilaterally, no rales/wheezes Heart- normal rate, regular rhythm; no murmurs Abdomen- normal bowel sounds, nondistended, soft, nontender Extremities- no pretibial edema, no calf tenderness Neuro- alert, oriented x 3; no gross focal neurologic deficits Skin- warm & dry Results & Data Results & Data ([facility]) Vital Signs (Past 12 Hours) Vital Signs Temp Pulse Resp BP Pulse Ox 09/01/20 16:25 36.8 C 72 16 110/63 94 09/01/20 07:21 36.8 C 97 H 16 117/54 L 97 (1) Syncope Syncope type: unspecified Qualified Code(s): R55 - Syncope and collapse
[2020-09-02] MEDS: ACETAMINOPHEN 325 MG TAB PO PRN ×2 (03:56→10:01)
[2020-09-02] MEDS: TRAMADOL HCL 50 MG TABLET PO PRN ×2 (05:14→10:56)
[2020-09-02] MEDS: LEVOTHYROXINE SODIUM 100 MCG TABLET PO SCH (05:37)
[2020-09-02] MEDS: SENNA 8.6 MG TAB PO SCH (08:03)
[2020-09-02] MEDS: CALCIUM 600MG + VIT D 400 IU TAB PO SCH (08:03)
[2020-09-02] MEDS: DOCUSATE SODIUM 100 MG CAP PO SCH (08:03)
[2020-09-02] MEDS: lamoTRIgine 25 MG TAB PO SCH (08:03)
[2020-09-02] MEDS: HEPARIN SOD 5,000 UNIT/0.5 ML VIAL SQ SCH (10:56)
--- NOTE | 2020-09-02 15:29 | Hospitalist Progress Note ---
Date of Service September 02, 2020 Assessment & Plan (1) Syncope: 80-year-old female who has significant past medical history of bipolar disorder, CKD stage III, COPD, tobacco abuse, hypothyroidism, chronic pain syndrome who presents to ED secondary to syncopal episode prior to fall. CT head - unremarkable Carotid doppler unremarkable PT/OT recommend inpatient rehab stable overall d/c to [facility] for further PT/OT (2) Chronic generalized pain: Generalized arthralgias 2/2 to osteoarthritis, likely rotator cuff tear per Dr. 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 Reported to be dehydrated on admission given IV fluids stable (4) Hypothyroidism: TSH - 0.486 (recent admission levothyroxine increased from 88mcg to 125mg, previous TSH 38.7) Continue reduced levothyroxine to 100mcg daily on discharge and recheck TSH in 6 weeks (5) Bipolar disorder: Continue lamictal (6) COPD (chronic obstructive pulmonary disease): Hx of tobacco abuse still smokes but ~ 1 cig a day because of hand deformities Counselled on smoking cessation (7) Severe malnutrition: BMI 14.6 Sensory Scientist consulted Continue boost TID on discharge (8) DVT prophylaxis: Heparin SQ Disposition: d/c to [facility] ff up with PCP 1 week after discharge from [facility] Admission and Anticipated Discharge Date Admission Date: August 28, 2020 Subjective ff up for syncope seen resting in bed, not in distress, sleeping but easily rousable states she still has diffuse pain, Tramadol relieving pain still feels weak denies dizziness, chest pain, palpitations no abdominal pain, nausea/vomiting no other symptoms Review of Systems Review of Systems: All systems reviewed & are unremarkable except as noted in Subjective Physical Exam Physical Exam: General- oriented x 3, not in distress, speaks in sentences with no effort or accessory muscle use Eyes- anicteric Neck- no JVD Lungs- clear breath sounds bilaterally no rales no wheezing Heart- normal rate, regular rhythm; no murmurs Abdomen- normal bowel sounds, nondistended, soft, nontender Extremities- no pretibial edema, no calf tenderness Neuro- alert, oriented x 3; no gross focal neurologic deficits Skin- warm & dry Results & Data Results & Data ([facility]) Vital Signs (Past 12 Hours) Vital Signs Temp Pulse Resp BP Pulse Ox 09/02/20 07:44 37 C 64 16 106/41 L 96 (1) Syncope Syncope type: unspecified Qualified Code(s): R55 - Syncope and collapse
--- NOTE | 2020-09-02 16:07 | Discharge Summary ---
Date of Service September 02, 2020 Admission HPI Per Admitting Provider This is an 80-year-old female who has significant past medical history of bipolar disorder, CKD stage III, COPD, tobacco abuse, hypothyroidism, chronic pain syndrome who presents to ED secondary to syncopal episode prior to fall. Patient elicits she was sitting in chair to watch TV whenever she, "blacked out." She feels she was out for approximately 2 minutes. She is unsure of the exact time but states, "it did not seem that long." She denies any presyncopal symptoms including dizziness, lightheadedness, diaphoresis, chest pain, shortness of breath or nausea. She admits to having similar episodes in the [facility], but did not come to hospital for evaluation. When on floor she rolled over and had her life alert button and EMS was summoned. She was then brought to ED. She currently lives at home. She states she may have passed out secondary to the, "intense pain." She states she is in pain all the time and Tylenol does nothing. She complains of pain, "all over her body." Pain secondary to arthritis. She denies any other recent illness, fever, chills, sweats, chest pain, short breath, cough, nausea, vomiting, abdominal pain, diarrhea, increased urgency or frequency with urination, melena, medic easier. She does admit to mild dysuria. She overall has poor p.o. intake and appetite because, "I cannot use my hands to eat." Of significance patient was recently admitted 08/12 to 08/14 secondary to generalized pain. She did undergo orthopedic evaluation by Dr. Saucedo. She was also treated for UTI with positive urine culture for E. coli and alpha strep. She received ceftriaxone and discharged on Bactrim. She further had elevated TSH at 30 and had titration of her levothyroxine to 125 mcg daily. She denies seeing PCP post hospitalization. In ED patient remained hemodynamically stable. Her CBC and CMP were generally unremarkable except mild elevation BUN 35, creatinine 1.09, glucose 102, calcium 10.6. Her TSH was significantly reduced .486, On 08/12/[address] head/neck unrevealing. She did receive 50 mg oral tramadol while in ED. She was recommended to be admitted under observation to evaluate etiology of syncope. Admission Exam Per Admitting Provider General- oriented x 3, not in distress, speaks in sentences with no effort or accessory muscle use Eyes- anicteric Neck- no JVD Lungs- clear breath sounds bilaterally no rales no wheezing Heart- normal rate, regular rhythm; no murmurs Abdomen- normal bowel sounds, nondistended, soft, nontender Extremities- no pretibial edema, no calf tenderness Neuro- alert, oriented x 3; no gross focal neurologic deficits Skin- warm & dry Principal Diagnosis SYNCOPE, WEAKNESS Discharge Exam General- oriented x 3, not in distress, speaks in sentences with no effort or accessory muscle use Eyes- anicteric Neck- no JVD Lungs- clear breath sounds bilaterally no rales no wheezing Heart- normal rate, regular rhythm; no murmurs Abdomen- normal bowel sounds, nondistended, soft, nontender Extremities- no pretibial edema, no calf tenderness Neuro- alert, oriented x 3; no gross focal neurologic deficits Skin- warm & dry Discharge Data Allergies Allergy/AdvReac Type Severity Reaction Status Date / Time Penicillins Allergy Mild RASH Verified 08/26/20 13:07 albuterol [From ProAir HFA] AdvReac Intermediate Dizziness Verified 08/26/20 13:07 Consultations 08/26/20 14:23 ED Decision to Admit Stat 08/26/20 17:36 Consult Case Management - Discharge Planning Routine Ordered Studies 08/26/20 12:13 CT cervical spine wo con Stat COMPARISON STUDY: X-ray study dated 07/18/2019 CT DOSE: 862.21 mGy.cm TECHNIQUE: CT scan of the cervical spine was performed from the skull base to the thoracic inlet. Images are reviewed in the axial, sagittal, and coronal planes. IV contrast was not administered for this examination. A dose lowering technique was utilized adhering to the principles of ALARA. FINDINGS: The visualized portions of the lung apices reveal no evidence of pneumothorax. The prevertebral soft tissues are normal. No fractures or traumatic subluxations are visualized. There are advanced multilevel degenerative changes. There is 4 mm anterolisthesis of C3 on C4 which is felt to be degenerative. There is spinal stenosis most pronounced the C4-5 level. There is foraminal narrowing most pronounced at the C4-5 and C5-C6 levels. IMPRESSION: No evidence of acute fracture or traumatic subluxation. CHEST XRAY: COMPARISON: Chest 08/12/2020. FINDINGS: No pneumothorax. No pleural effusions. The heart is normal in size. Left subclavian Port-A-Cath terminates at the SVC. Mild emphysema. The lungs are clear. Mild compression deformities within the mid thoracic spine are again noted. IMPRESSION: No significant change compared to the prior study. No acute process. 08/26/20 12:14 CT head/brain wo con Stat COMPARISON STUDY: CT of the brain dated 04/15/2019. TECHNIQUE: Unenhanced axial CT scan of the brain is performed from the vertex to the skull base. A dose lowering technique was utilized adhering to the principles of ALARA. FINDINGS: Brain parenchyma: There are age-related involutional changes noting moderate to advanced confluent subcortical and periventricular microangiopathic change. There is no hemorrhage, mass effect, or evidence of acute territorial ischemia by CT criteria. Mineralization is noted in the basal ganglia. Liriano-white matter differentiation is preserved. No extra-axial fluid collection is seen. Ventricles, sulci, cisterns: Prominent secondary to involutional change. Intracranial vasculature: There is atherosclerotic calcification of the cavernous carotid and vertebral arteries. Calvarium: The skeletal structures are osteopenic. There is no depressed calvarial fracture. Sinuses and mastoids: The visualized paranasal sinuses are clear. The mastoid air cells are well pneumatized. Orbits: The bony orbits are grossly intact. IMPRESSION: There is no hemorrhage, mass effect, or evidence of acute territorial ischemia by CT criteria. 08/26/20 14:56 US carotid doppler BI Routine IMPRESSION: 1. There is no sonographic evidence of hemodynamically significant stenosis in the right or left carotid arterial system. 2. Antegrade flow is shown in the vertebral arteries. Hospital Course (1) Syncope: (1) Syncope: 80-year-old female who has significant past medical history of bipolar disorder, CKD stage III, COPD, tobacco abuse, hypothyroidism, chronic pain syndrome who presents to ED secondary to syncopal episode prior to fall. CT head - unremarkable Carotid doppler unremarkable PT/OT recommend inpatient rehab stable overall d/c to [facility] for further PT/OT Fall precautions please always ambulate with assistance advised NOT to drive until ff up visit with Primary care physician (2) Chronic generalized pain: Generalized arthralgias 2/2 to osteoarthritis, likely rotator cuff tear per Dr. 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 Reported to be dehydrated on admission given IV fluids stable (4) Hypothyroidism: TSH - 0.486 (recent admission levothyroxine increased from 88mcg to 125mg, previous TSH 38.7) Continue reduced levothyroxine to 100mcg daily on discharge and recheck TSH in 6 weeks (5) Bipolar disorder: Continue lamictal (6) COPD (chronic obstructive pulmonary disease): Hx of tobacco abuse still smokes but ~ 1 cig a day because of hand deformities Counselled on smoking cessation (7) Severe malnutrition: BMI 14.6 [employer] consulted Continue boost TID on discharge (8) DVT prophylaxis: given Heparin SQ while admitted please encourage ambulation [facility] Primary Care Physician Dr. Aries Blake on Sunday09/10/20 Total Time Total Time Spent Total Time Spent (In Minutes): 45 minutes Discharge Plan Discharge Items Patient Disposition: Transfer [facility] Reason For Visit: SYNCOPE Discharge Diagnosis: SYNCOPE, WEAKNESS Activity: As commented below Activity Comment: ALWAYS WITH ASSISTANCE, FALL PRECAUTIONS, CONTINUE PT/OT Driving/Machine Use: NO DRIVING UNTIL RE-EVALUATED AND ALLOWED BY PRIMARY CARE PHYSICIAN Non-emergency contact: Primary Care Provider Call non-emergency contact if: you have any medication questions, your symptoms worsen, your pain is not controlled, your pain is worsening, your pain is unusual for you, your pain is concerning for you and you have a fever Follow-up/Referrals: Aries Blake, [Primary Care Provider] - 09/10/20 3:00 pm Diet: Heart Healthy Addtl Attending Provider Instructions: PLEASE REFER TO ACCOMPANYING HOSPITAL DISCHARGE SUMMARY FOR FURTHER DETAILS. Pending Studies at Discharge: No Stand-Alone Forms: My [facility] Skilled Items Patient informed of condition?: Yes DNR: Yes Discharge Level of Care: Skilled Communicable Disease: No Discharge Prognosis: Stable Lines: None Urinary Catheter: No Medications and DC Order Prescriptions: New tramadol 50 mg Tablet 50 mg PO Q4H PRN (Reason: pain) Qty: 10 RF: 0 Continued Caltrate 600 plus D 600 mg (1,500 mg)-800 unit Tablet,Chewable 1 tab PO BID RF: 0 lamotrigine [Lamictal] 25 mg tablet 25 mg PO BID RF: 0 sennosides [Senokot] 8.6 mg Tablet 8.6 mg PO QAM 30 Days Qty: 30 RF: 0 docusate sodium 100 mg Capsule 100 mg PO BID 30 Days Qty: 60 RF: 0 levothyroxine 125 mcg tablet 125 mcg PO DAILY 30 Days Qty: 30 RF: 0 acetaminophen [Tylenol Extra Strength] 500 mg Tablet 1,000 mg PO Q6H PRN (Reason: Pain) RF: 0 Discharge Orders: Discharge Order (Routine); Ordered 09/02/20 Ordered By: Ben Hugo Admission Data Admit Date/Time: 08/28/20 17:12 Attending Provider: Ben Hugo Admit Provider: Vadim Wilder Primary Care Provider: Aries Blake Other Providers: Vadim Wilder ; [facility] Fink [facility] ; [facility] ; Afshan Murry I.
== END 2020-09-02 16:30 | DRG 312 ==
LOC: ED 11:31 → 2W 11:31 → SUATTDRO 14:27 → 2W 17:17 → SUATTDRO 08-28 17:12

== ENCOUNTER 2022-03-24 09:31 | Inpatient (IN) ==
[2022-03-24] MEDS ORDERED: SODIUM CHLORIDE 0.9% 1000ML 500 ML IV ONE (09:59)
--- NOTE | 2022-03-24 10:05 | Emergency Department Note ---
History of Present Illness General Chief complaint: Shortness of Breath/Dyspnea Stated complaint: SOB Time Seen by Provider: 03/24/22 09:51 Source: patient Mode of arrival: ambulatory Limitations: no limitations History of Present Illness Maximum Pain Intensity: 10 This patient is an 81-year-old female who lives in [facility], comes over after feeling short of breath for weeks. She has a lot of other chronic complaint she was seen here about a week ago for similar type symptoms. She has had intermittent cough when she eats. Denies fever. She has chest pain off and on. She is abdominal pain for weeks she is had leg pain for weeks. Denies any swelling no fall. She says she stopped taking her Synthroid and thinks her thyroid could be acting up. No change in medication otherwise. Home Medications Medication Instructions Recorded Confirmed Type calcium carbonate 600 mg-vitamin 1 tab PO BID 11/20/18 03/24/22 History D3 20 mcg (800 unit) chewable tablet (Caltrate 600 plus D) lamotrigine 25 mg tablet (Lamictal) 25 mg PO BID 08/12/20 03/24/22 History acetaminophen 500 mg tablet 1,000 mg PO Q6H PRN 08/26/20 03/24/22 History (Tylenol Extra Strength) levothyroxine 88 mcg tablet 88 mcg PO QAM 12/09/20 03/24/22 History (Synthroid) famotidine 20 mg tablet 20 mg PO BID #20 tab 03/17/22 03/24/22 Rx Allergies Allergy/AdvReac Type Severity Reaction Status Date / Time Penicillins Allergy Mild RASH Verified 03/24/22 10:17 albuterol [From ProAir HFA] AdvReac Intermediate Dizziness Verified 03/24/22 10:17 Past Med/Surg History Medical History (Updated 03/24/22 @ 16:44 by Maxi Nickerson MD) Altered mental status Bipolar disorder Bladder cancer CKD (chronic kidney disease), stage IV CKD (chronic kidney disease), stage IV COPD (chronic obstructive pulmonary disease) COPD (chronic obstructive pulmonary disease) Dizziness History of kidney cancer Hypothyroidism Intractable pain Malignant tumor of kidney Malignant tumor of urinary bladder Neuropathy Osteoarthritis S/p nephrectomy Tobacco abuse Tobacco abuse Urothelial cancer (~2010) UTI (urinary tract infection) Surgical History H/O dilation and curettage H/O: hysterectomy History of partial hysterectomy Hx of total knee arthroplasty S/p nephrectomy "Left" Family History Aunt Heart disease [place] in her 50s Mother Breast cancer Father Prostate cancer Social History Smoking Status: Current every day smoker Tobacco Type: Cigarettes Years Smoked: 20; Cigarettes Per Day: 7; Second Hand Exposure: No; Hx Alcohol Use: No Hx Substance Use: No Preferred Language: Serbian Communication Ability: Effective Visual Impairment: No Limitations Hearing Ability: Normal Plant And Maintenance Technician Required: No Beliefs That Will Affect Care: None marital status: / Current Living Situation: Alone Feels Safe at Home: Yes Assistive Devices: None Review of Systems A total of 10 systems reviewed and were otherwise negative Physical Exam Vital Signs Vital Signs - 24 hr 03/24/22 09:39 03/24/22 09:49 03/24/22 10:00 Temperature 36.2 C L Temperature Source Temporal Artery Scan Pulse Rate 146 H 118 H Pulse Rate [Apical] Pulse Rhythm Regular Pulse Strength Normal Respiratory Rate 22 20 Respiratory Effort / Characteristics Non-Labored Spontaneous Respiratory Depth Normal Respiratory Pattern Regular Blood Pressure 125/82 114/84 Blood Pressure [Right Arm] Blood Pressure Mean 96 94 Blood Pressure Mean [Right Arm] Blood Pressure Position Sitting Pulse Oximetry 97 132 H 96 Oxygen Delivery Method Room Air Room Air Sepsis Recent Fever Within 48 Hours No Sepsis New/Unexplained Change in Mental Status No Sepsis Action Taken by Nursing No Action Required 03/24/22 10:02 03/24/22 10:30 03/24/22 11:00 Temperature Temperature Source Pulse Rate 112 H 92 H Pulse Rate [Apical] Pulse Rhythm Pulse Strength Respiratory Rate 23 17 Respiratory Effort / Characteristics Respiratory Depth Respiratory Pattern Blood Pressure 131/70 117/76 Blood Pressure [Right Arm] Blood Pressure Mean 90 89 Blood Pressure Mean [Right Arm] Blood Pressure Position Pulse Oximetry 98 Oxygen Delivery Method Room Air Sepsis Recent Fever Within 48 Hours Sepsis New/Unexplained Change in Mental Status Sepsis Action Taken by Nursing 03/24/22 11:04 03/24/22 11:10 03/24/22 11:30 Temperature Temperature Source Pulse Rate 77 Pulse Rate [Apical] 100 H 70 Pulse Rhythm Pulse Strength Respiratory Rate 22 18 21 Respiratory Effort / Characteristics Respiratory Depth Respiratory Pattern Blood Pressure Blood Pressure [Right Arm] 117/76 Blood Pressure Mean Blood Pressure Mean [Right Arm] 89 Blood Pressure Position Pulse Oximetry 100 97 97 Oxygen Delivery Method Room Air Sepsis Recent Fever Within 48 Hours Sepsis New/Unexplained Change in Mental Status Sepsis Action Taken by Nursing 03/24/22 12:00 Temperature Temperature Source Pulse Rate 72 Pulse Rate [Apical] Pulse Rhythm Pulse Strength Respiratory Rate 20 Respiratory Effort / Characteristics Respiratory Depth Respiratory Pattern Blood Pressure Blood Pressure [Right Arm] Blood Pressure Mean Blood Pressure Mean [Right Arm] Blood Pressure Position Pulse Oximetry 97 Oxygen Delivery Method Sepsis Recent Fever Within 48 Hours Sepsis New/Unexplained Change in Mental Status Sepsis Action Taken by Nursing General: Well developed well nourished slender older female who appears in no acute distress, breathing comfortably on room air. Normal speech HEENT: Normal cephalic atraumatic. Pupils are equal round and reactive to light. Sclera anicteric. Extraocular movements are intact. Oropharynx is pink with moist mucous membranes. No swelling of the mouth lips or tongue. Neck: Supple with a midline trachea. No meningeal signs or stiffness, no JVD or bruits. No Stridor. Chest: Clear to auscultation bilaterally. No wheezes or rhonchi. No increased work of breathing. Heart: Tachycardic regular rate and rhythm without murmurs or gallops. I look at the monitor it is sinus tach at about 120. Abdomen: Soft nontender, nondistended without rebound guarding or rigidity. Extremities: No cyanosis clubbing or edema. No calf tenderness or assymetry Spine/Back. Non tender to palpation. No CVA tenderness Skin: Good turgor without rashes. Neurologic exam: Cranial nerves two through 12 are intact. Motor and sensation are intact and symmetrical throughout. Course Administered Medications Sodium Chloride (Nss 1000ml) 1,000 mls @ 125 mls/hr IV .Q8H EDUARDO Stop: 03/24/22 20:14 Last Admin: 03/24/22 12:37 Dose: 125 mls/hr Documented by: [id number] Nicotine (Nicotine 14 Mg/24 Hr Patch) 14 mg TD QAM EDUARDO Stop: 04/23/22 14:47 Last Admin: 03/24/22 15:49 Dose: Not Given Documented by: [id number] Discontinued Medications Sodium Chloride (Nss 1000ml) 500 mls @ 999 mls/hr IV .Q31M ONE Stop: 03/24/22 10:29 Last Infusion: 03/24/22 10:36 Dose: 0 mls/hr Documented by: [id number] Admin: 03/24/22 10:04 Dose: 999 mls/hr Documented by: [id number] Medical Decision Making Differential Diagnosis Arrhythmia, infection, COVID, cardiac disease, thyroid disease, dehydration, electrolyte or metabolic abnormality, anxiety Medical Records Attestation: I reviewed the patient's medical records. Home Medications Current Medication List: was personally reviewed by me Laboratory Data Attestation: I reviewed the patient's lab results. Result diagrams: 03/24/22 09:53 03/24/22 09:53 Lab Results 03/24/22 03/24/22 03/24/22 Range/Units 09:53 09:53 09:53 WBC 6.80 (4.8-10.8) K/uL RBC 4.64 (4.2-5.4) M/uL Hgb 14.6 (12.0-16.0) g/dL Hct 46.4 (37-47) % MCV 100.0 (80-100) fL MCH 31.5 (25-34) pg MCHC 31.5 L (32-36) g/dL RDW Std Deviation 51.8 H (36.4-46.3) fL RDW Coeff of Margarito 14.2 (11.5-14.5) % Plt Count 332 (130-400) K/uL MPV 10.1 (7.4-10.4) fL Immature Gran % (Auto) 0.1 % Neut % (Auto) 76.7 % Lymph % (Auto) 18.1 % [place] % (Auto) 4.4 % Eos % (Auto) 0.6 % Baso % (Auto) 0.1 % Neut # (Auto) 5.21 (1.4-6.5) K/uL Lymph # (Auto) 1.23 (1.2-3.4) K/uL [place] # (Auto) 0.30 (0.11-0.59) K/uL Eos # (Auto) 0.04 (0-0.5) K/uL Baso # (Auto) 0.01 (0-0.2) K/uL Immature Gran # (Auto) 0.01 (0.00-0.02) K/uL PT 10.2 (9.0-12.0) Seconds INR 1.0 (0.9-1.1) APTT 24.7 (21.0-31.0) Seconds PTT Ratio 0.9 Sodium (136-145) mmol/L Potassium (3.5-5.1) mmol/L Chloride (98-107) mmol/L Carbon Dioxide (21-32) mmol/L Anion Gap (3-11) BUN (6-23) mg/dl Creatinine (0.6-1.2) mg/dl Est Cr Clr Drug Dosing ml/min Est GFR ( Amer) ml/min Est GFR (Non-Af Amer) ml/min BUN/Creatinine Ratio (10-20) Glucose (70-99(Fasting)) mg/dl Lactate (0.4-2.0) mmol/L Calcium (8.5-10.1) mg/dl Magnesium (1.7-2.4) mg/dl Total Bilirubin (0.2-1.0) mg/dl AST (13-39) U/L ALT (7-52) U/L Alkaline Phosphatase (34-104) U/L Troponin I High Sens 17.4 H D (0-14) pg/ml Total Protein (6.0-8.3) gm/dl Albumin (3.4-5.0) gm/dl Globulin (2.5-4.0) gm/dl Albumin/Globulin Ratio (0.9-2) Procalcitonin (0-0.5) ng/ml TSH (0.300-4.500) uIu/ml Free T4 (0.61-1.60) ng/dl Urine Color Urine Appearance (Clear) Urine pH (4.5-7.5) Ur Specific [place] (1.000-1.030) Urine Protein (Negative) Urine Glucose (UA) (Negative) Urine Ketones (Negative) Urine Blood (Negative) Urine Nitrite (Negative) Urine Bilirubin (Negative) Urine Urobilinogen (Negative) Ur Leukocyte Esterase (Negative) Urine WBC (Auto) (0-5) /hpf Urine RBC (Auto) (0-4) /hpf U Hyaline Cast (Auto) (0-5) /lpf U Epithel Cells (Auto) (0-5) /lpf Urine Bacteria (Auto) (Negative) SARS-CoV-2 (PCR) (Negative) Influenza Type A (PCR) (Neg) Influenza Type B (PCR) (Neg) RSV (RT-PCR) (Neg) 03/24/22 03/24/22 03/24/22 Range/Units 09:53 09:53 09:53 WBC (4.8-10.8) K/uL RBC (4.2-5.4) M/uL Hgb (12.0-16.0) g/dL Hct (37-47) % MCV (80-100) fL MCH (25-34) pg MCHC (32-36) g/dL RDW Std Deviation (36.4-46.3) fL RDW Coeff of Margarito (11.5-14.5) % Plt Count (130-400) K/uL MPV (7.4-10.4) fL Immature Gran % (Auto) % Neut % (Auto) % Lymph % (Auto) % [place] % (Auto) % Eos % (Auto) % Baso % (Auto) % Neut # (Auto) (1.4-6.5) K/uL Lymph # (Auto) (1.2-3.4) K/uL [place] # (Auto) (0.11-0.59) K/uL Eos # (Auto) (0-0.5) K/uL Baso # (Auto) (0-0.2) K/uL Immature Gran # (Auto) (0.00-0.02) K/uL PT (9.0-12.0) Seconds INR (0.9-1.1) APTT (21.0-31.0) Seconds PTT Ratio Sodium 140 (136-145) mmol/L Potassium 3.7 (3.5-5.1) mmol/L Chloride 103 (98-107) mmol/L Carbon Dioxide 23 (21-32) mmol/L Anion Gap 14 H (3-11) BUN 37 H (6-23) mg/dl Creatinine 1.74 H (0.6-1.2) mg/dl Est Cr Clr Drug Dosing 15.3 ml/min Est GFR ( Amer) 31.1 ml/min Est GFR (Non-Af Amer) 26.8 ml/min BUN/Creatinine Ratio 21.3 H (10-20) Glucose 213 H (70-99(Fasting)) mg/dl Lactate (0.4-2.0) mmol/L Calcium 10.5 H (8.5-10.1) mg/dl Magnesium 2.1 (1.7-2.4) mg/dl Total Bilirubin 0.8 (0.2-1.0) mg/dl AST 22 (13-39) U/L ALT 12 (7-52) U/L Alkaline Phosphatase 90 (34-104) U/L Troponin I High Sens (0-14) pg/ml Total Protein 8.3 (6.0-8.3) gm/dl Albumin 4.8 (3.4-5.0) gm/dl Globulin 3.5 (2.5-4.0) gm/dl Albumin/Globulin Ratio 1.4 (0.9-2) Procalcitonin < 0.05 (0-0.5) ng/ml TSH 68.488 H (0.300-4.500) uIu/ml Free T4 0.57 L (0.61-1.60) ng/dl Urine Color Urine Appearance (Clear) Urine pH (4.5-7.5) Ur Specific [place] (1.000-1.030) Urine Protein (Negative) Urine Glucose (UA) (Negative) Urine Ketones (Negative) Urine Blood (Negative) Urine Nitrite (Negative) Urine Bilirubin (Negative) Urine Urobilinogen (Negative) Ur Leukocyte Esterase (Negative) Urine WBC (Auto) (0-5) /hpf Urine RBC (Auto) (0-4) /hpf U Hyaline Cast (Auto) (0-5) /lpf U Epithel Cells (Auto) (0-5) /lpf Urine Bacteria (Auto) (Negative) SARS-CoV-2 (PCR) (Negative) Influenza Type A (PCR) (Neg) Influenza Type B (PCR) (Neg) RSV (RT-PCR) (Neg) 03/24/22 03/24/22 03/24/22 Range/Units 10:10 10:13 11:10 WBC (4.8-10.8) K/uL RBC (4.2-5.4) M/uL Hgb (12.0-16.0) g/dL Hct (37-47) % MCV (80-100) fL MCH (25-34) pg MCHC (32-36) g/dL RDW Std Deviation (36.4-46.3) fL RDW Coeff of Margarito (11.5-14.5) % Plt Count (130-400) K/uL MPV (7.4-10.4) fL Immature Gran % (Auto) % Neut % (Auto) % Lymph % (Auto) % [place] % (Auto) % Eos % (Auto) % Baso % (Auto) % Neut # (Auto) (1.4-6.5) K/uL Lymph # (Auto) (1.2-3.4) K/uL [place] # (Auto) (0.11-0.59) K/uL Eos # (Auto) (0-0.5) K/uL Baso # (Auto) (0-0.2) K/uL Immature Gran # (Auto) (0.00-0.02) K/uL PT (9.0-12.0) Seconds INR (0.9-1.1) APTT (21.0-31.0) Seconds PTT Ratio Sodium (136-145) mmol/L Potassium (3.5-5.1) mmol/L Chloride (98-107) mmol/L Carbon Dioxide (21-32) mmol/L Anion Gap (3-11) BUN (6-23) mg/dl Creatinine (0.6-1.2) mg/dl Est Cr Clr Drug Dosing ml/min Est GFR ( Amer) ml/min Est GFR (Non-Af Amer) ml/min BUN/Creatinine Ratio (10-20) Glucose (70-99(Fasting)) mg/dl Lactate 1.9 (0.4-2.0) mmol/L Calcium (8.5-10.1) mg/dl Magnesium (1.7-2.4) mg/dl Total Bilirubin (0.2-1.0) mg/dl AST (13-39) U/L ALT (7-52) U/L Alkaline Phosphatase (34-104) U/L Troponin I High Sens (0-14) pg/ml Total Protein (6.0-8.3) gm/dl Albumin (3.4-5.0) gm/dl Globulin (2.5-4.0) gm/dl Albumin/Globulin Ratio (0.9-2) Procalcitonin (0-0.5) ng/ml TSH (0.300-4.500) uIu/ml Free T4 (0.61-1.60) ng/dl Urine Color Yellow Urine Appearance Clear (Clear) Urine pH 5.5 (4.5-7.5) Ur Specific [place] 1.016 (1.000-1.030) Urine Protein 1+ H (Negative) Urine Glucose (UA) Negative (Negative) Urine Ketones Trace H (Negative) Urine Blood Negative (Negative) Urine Nitrite Negative (Negative) Urine Bilirubin Negative (Negative) Urine Urobilinogen Negative (Negative) Ur Leukocyte Esterase Negative (Negative) Urine WBC (Auto) 1-5 (0-5) /hpf Urine RBC (Auto) 0-4 (0-4) /hpf U Hyaline Cast (Auto) 1-5 (0-5) /lpf U Epithel Cells (Auto) >30 H (0-5) /lpf Urine Bacteria (Auto) Negative (Negative) SARS-CoV-2 (PCR) NEGATIVE (Negative) Influenza Type A (PCR) Negative (Neg) Influenza Type B (PCR) Negative (Neg) RSV (RT-PCR) Negative (Neg) 03/24/22 Range/Units 11:54 WBC (4.8-10.8) K/uL RBC (4.2-5.4) M/uL Hgb (12.0-16.0) g/dL Hct (37-47) % MCV (80-100) fL MCH (25-34) pg MCHC (32-36) g/dL RDW Std Deviation (36.4-46.3) fL RDW Coeff of Margarito (11.5-14.5) % Plt Count (130-400) K/uL MPV (7.4-10.4) fL Immature Gran % (Auto) % Neut % (Auto) % Lymph % (Auto) % [place] % (Auto) % Eos % (Auto) % Baso % (Auto) % Neut # (Auto) (1.4-6.5) K/uL Lymph # (Auto) (1.2-3.4) K/uL [place] # (Auto) (0.11-0.59) K/uL Eos # (Auto) (0-0.5) K/uL Baso # (Auto) (0-0.2) K/uL Immature Gran # (Auto) (0.00-0.02) K/uL PT (9.0-12.0) Seconds INR (0.9-1.1) APTT (21.0-31.0) Seconds PTT Ratio Sodium (136-145) mmol/L Potassium (3.5-5.1) mmol/L Chloride (98-107) mmol/L Carbon Dioxide (21-32) mmol/L Anion Gap (3-11) BUN (6-23) mg/dl Creatinine (0.6-1.2) mg/dl Est Cr Clr Drug Dosing ml/min Est GFR ( Amer) ml/min Est GFR (Non-Af Amer) ml/min BUN/Creatinine Ratio (10-20) Glucose (70-99(Fasting)) mg/dl Lactate (0.4-2.0) mmol/L Calcium (8.5-10.1) mg/dl Magnesium (1.7-2.4) mg/dl Total Bilirubin (0.2-1.0) mg/dl AST (13-39) U/L ALT (7-52) U/L Alkaline Phosphatase (34-104) U/L Troponin I High Sens 12.5 D (0-14) pg/ml Total Protein (6.0-8.3) gm/dl Albumin (3.4-5.0) gm/dl Globulin (2.5-4.0) gm/dl Albumin/Globulin Ratio (0.9-2) Procalcitonin (0-0.5) ng/ml TSH (0.300-4.500) uIu/ml Free T4 (0.61-1.60) ng/dl Urine Color Urine Appearance (Clear) Urine pH (4.5-7.5) Ur Specific [place] (1.000-1.030) Urine Protein (Negative) Urine Glucose (UA) (Negative) Urine Ketones (Negative) Urine Blood (Negative) Urine Nitrite (Negative) Urine Bilirubin (Negative) Urine Urobilinogen (Negative) Ur Leukocyte Esterase (Negative) Urine WBC (Auto) (0-5) /hpf Urine RBC (Auto) (0-4) /hpf U Hyaline Cast (Auto) (0-5) /lpf U Epithel Cells (Auto) (0-5) /lpf Urine Bacteria (Auto) (Negative) SARS-CoV-2 (PCR) (Negative) Influenza Type A (PCR) (Neg) Influenza Type B (PCR) (Neg) RSV (RT-PCR) (Neg) Imaging Data Attestation: I personally reviewed and interpreted this imaging study as follows: My Impression: Chest x-rayno acute infiltrate, failure, pneumothorax seen Radiologist's Impression: Chest X-Ray 03/24/22 09:59 XR chest 1V portable HISTORY: Confusion. SEPSIS COMPARISON: Chest 03/17/2022. FINDINGS: No pneumothorax. No pleural effusions. Severe levoscoliosis of the thoracolumbar spine centered at the L2 level again noted. Left subclavian Port-A-Cath runs at the proximal SVC, unchanged. The heart is normal in size. There are old, healed left-sided rib fractures. Lungs are hyperexpanded with apical predominant emphysematous changes. No new focal lung consolidations to suggest pneumonia. No evidence for pulmonary edema. Chronic compression deformities again noted within the lower thoracic spine. Advanced degenerative changes within the left shoulder IMPRESSION: No significant change compared to the prior study. No acute process. ACT 112: Negative or not required by law. Electronically signed by: David Dickerson M.D. 03/24/2022 10:44 AM ECG Data Attestation: I personally reviewed and interpreted this ECG as follows: Indication: + SOB/dyspnea Rate (beats per minute): 134 Rhythm: + sinus tachycardia ECG Intervals/blocks: + Normal QT ECG Jenner: + Normal ECG ST segments: + Nonspecific ST abnormalities ECG Findings: + Other (Increase QRS with associated t wave inversion laterally); no PACs or no PVCs Comparison ECG Date: from (03/17/22) Change: the following changes noted (Rate has increased. QRS has increased as well. There are some T wave inversions associated with a widened QRS laterally) Additional Comments: EKG #2: Normal sinus rhythm with a rate of 72. No acute ischemic changes or ectopy seen in. Compared to EKG #1 there are significant changes and the rate has slowed down to QRS is normal less wide and the T waves are improved. MDM Narrative This patient comes in as described above. She was placed on a monitor and storage bin tender room C2 she has been feeling short of breath. She is not hypoxemic ,she is tachycardic. There are multiple reasons potentially for this. Her heart rate when I saw her was in the high 110s to low 120s and seems to be slowing down from triage. She was hydrated with an IV normal saline bolus. EKG was obtained which shows some baseline artifact but no definite ischemic changes. Chest x- ray multiple blood testing was obtained she was also COVID tested. She had a full sepsis type work-up. She does have a history of COPD but tells me she does not use inhalers or oxygen. She has no wheezing and appears in no respiratory distress is not hypoxemic. Cardiac biomarkers did not suggest any definite VT the second 1 was actually lower than the first. I was concerned with her EKG I think it is sinus tachycardia but she was very tachycardic initially but it came down to normalize. Her QRS also looks better as did her T waves. Her TSH did come back significantly elevated and she could have hypothyroidism although her vital signs do not suggest that as she is more tachycardic than bradycardic. I do think she needs to be admitted/observed for further treatment evaluation of consulted the [facility] Hospitalist to see her for these measures. Continuous cardiac monitoring: Due to the patient's tachycardia an order was placed in EMR for continuous cardiac monitoring. Upon interpretation she was noted to be in normal sinus rhythm with a rate of 115. Impression & Plan SOB (shortness of breath), Sinus tachycardia, COPD (chronic obstructive pulmonary disease), Hypothyroidism, Lab test negative for COVID-19 virus Discharge Plan Visit Data Chief Complaint: Shortness of Breath/Dyspnea Stated Complaint: SOB ED Provider: Maxi Nickerson Discharge Problem: SOB (shortness of breath), Sinus tachycardia, COPD (chronic obstructive pulmonary disease), Hypothyroidism, Lab test negative for COVID-19 virus Discharge Instructions Interventions: ED Discharge Assessment Last Done: 03/24/22 14:49
[2022-03-24 10:16] LABS: Basophils # (auto) 0.01 K/uL (0-0.2); Basophils % (auto) 0.1 %; Eosinophils # (auto) 0.04 K/uL (0-0.5); Eosinophils % (auto) 0.6 %; Hematocrit (blood only) 46.4 % (37-47); Hemoglobin 14.6 g/dL (12.0-16.0); Immature Granulocytes # (auto) 0.01 K/uL (0.00-0.02); Immature Granulocytes % (auto) 0.1 %; Lymphocytes # (auto) 1.23 K/uL (1.2-3.4); Lymphocytes % (auto) 18.1 %; Mean Corpuscular Hemoglobin 31.5 pg (25-34); Mean Corpuscular Hgb Conc 31.5 g/dL (32-36); Mean Platelet Volume 10.1 fL (7.4-10.4); Monocytes % (auto) 4.4 %; Neutrophils # (auto) 5.21 K/uL (1.4-6.5); Neutrophils % (auto) 76.7 %; Platelet Count 332 K/uL (130-400); RDW Coefficient of Variation 14.2 % (11.5-14.5); RDW Standard Deviation 51.8 fL (36.4-46.3); Red Blood Count 4.64 M/uL (4.2-5.4)
[2022-03-24 10:45] LABS: Albumin Globulin Ratio 1.4 (0.9-2); Albumin Level 4.8 gm/dl (3.4-5.0); BUN Creatinine Ratio 21.3 (10-20); Bilirubin,Total 0.8 mg/dl (0.2-1.0); Calcium 10.5 mg/dl (8.5-10.1); Creatinine Clr Calc Pharmacy 15.3 ml/min; Est GFR (African American) 31.1 ml/min; Est GFR (Non-African American) 26.8 ml/min; Globulin 3.5 gm/dl (2.5-4.0); Magnesium 2.1 mg/dl (1.7-2.4); Potassium 3.7 mmol/L (3.5-5.1); Total Protein 8.3 gm/dl (6.0-8.3)
--- NOTE | 2022-03-24 10:46 | XRay Report ---
XR chest 1V portable HISTORY: Confusion. SEPSIS COMPARISON: Chest 03/17/2022. FINDINGS: No pneumothorax. No pleural effusions. Severe levoscoliosis of the thoracolumbar spine cent ered at the L2 level again noted. Left subclavian Port-A-Cath runs at the proximal SVC, unchanged. Th e heart is normal in size. There are old, healed left-sided rib fractures. Lungs are hyperexpanded wi th apical predominant emphysematous changes. No new focal lung consolidations to suggest pneumonia. N o evidence for pulmonary edema. Chronic compression deformities again noted within the lower thoracic spine. Advanced degenerative changes within the left shoulder IMPRESSION: No significant change compared to the prior study. No acute process. ACT 112: Negative or not required by law. Electronically signed by: David Dickerson M.D. 03/24/2022 10:44 AM
[2022-03-24 10:49] LABS: Partial Thromboplastin Ratio 0.9; Partial Thromboplastin Time 24.7 Seconds (21.0-31.0); Prothrombin Time 10.2 Seconds (9.0-12.0)
[2022-03-24 11:02] LABS: Influenza A virus by PCR Negative (Neg); Influenza B virus by PCR Negative (Neg); RSV by PCR Negative (Neg); SARS CoV2 RNA(COVID-19) InHosp NEGATIVE (Negative)
[2022-03-24 11:24] LABS: Appearance Urine Clear (Clear); Bacteria Urine Automated Negative (Negative); Bilirubin Urine Negative (Negative); Blood Urine Negative (Negative); Color Urine Yellow; Epithelial Cell Urine Auto >30 /lpf (0-5); Glucose Urine UA Negative (Negative); Ketones Urine Trace (Negative); Leukocyte Esterase Urine Negative (Negative); Nitrite Urine Negative (Negative); Protein Urine 1+ (Negative); RBC Urine Automated 0-4 /hpf (0-4); Specific Gravity Urine 1.016 (1.000-1.030); Urobilinogen Urine Negative (Negative); pH Urine 5.5 (4.5-7.5)
[2022-03-24 11:38] LABS: Thyroid Stimulating Hormone 68.488 uIu/ml (0.300-4.500)
--- NOTE | 2022-03-24 12:04 | History & Physical Report ---
Date of Service March 24, 2022 Assessment & Plan (1) Sinus tachycardia: (2) Acute kidney injury superimposed on CKD: (3) Dehydration: Plan: - Admit to med surg with tele - EKG repeated after being given 1 L of fluids in the ER, no other pharmacological treatment was administered, and her VS improved, and EKG also improved. - Will continue on fluids running slow maintenance fluids - Cr elevated at 1.74, baseline of 1.0-1.1 - Hx of bladder cancer and renal cell carcinoma s/p left nephrectomy Sep 2011 - C/o dizziness/lightheaded chronic, likely secondary to dehydration and will improve - PT/OT consults -Med rec none left subclavian not accessed, from history of cancer in 2010, just never removed - Follow urine culture for completeness with trace ketones on UA (4) COPD (chronic obstructive pulmonary disease): (5) Tobacco abuse: (6) SOB (shortness of breath): Plan: - Pt currently smokes 0.5 ppd, does not want to stop, encouraged cessation at bedside - Nicotine patch 14 mcg as needed - CXR was reviewed, no pulmonary edema, old left-sided rib fractures which are healed, chronic compression deformities with severe levoscoliosis of the thoracic and lumbar spine, advanced degenerative changes in the left shoulder - O2 prn, currently on room air - negative COVID/RSV/Influ on admission (7) Severe malnutrition: Plan: - BMI of 13.8, will add boost supplementation with meals - Speech therapy consulted for issues with swallowing- may benefit from video swallowing study (8) Hypothyroidism: Plan: -Patient reported noncompliance with her medications with thyroid, reports that she last took her levothyroxine on Sunday or Sunday earlier this week. -TSH is 68.49 on admission, will need recheck in 4 to 6-week with compliance with taking meds -Likely contributing to tachycardia (9) Bipolar disorder: Plan: -Continue Lamictal 25 mg twice daily (10) Neuropathy: Plan: -Chronic, may continue to use Tylenol DVT ppx - teds, scds, heparin subq CODE: DNR/DNI Dispo: From home, likely to remain in the hospital x 1-2 days History of Present Illness Primary Care Provider: [facility] This is an 81 yo F from [facility] with PMHx of bipolar on lamictal, CKD stage III, Sinus tachycardia, hypercalcemia, hypothyroidism, neuropathy, COPD, chronic tobacco use, GERD, syncope, chronic pain disorder, severe malnutrition with BMI of 13.8, hx of Renal cell carcinoma s/p nephrectomy 10 years ago. Presents today with complaints of increased dizziness and weakness, chest pain "all over" and shortness of breath which worsened in the past 2 days. She has been eating and drinking ok, but doesn't like the food at the facility she's in. She tells me that she had difficult with swallowing dry foods and chokes on things often, and has not to her knowledge had a speech evaluation in the past. Pt denies any abdominal complaints, nausea, vomiting or diarrhea. She admits to taking her thyroid medication noncompliantly, states "on and off". The last time she took it was Sunday or Sunday. She reports taking her Lamictal as directed. Her son is present with her at bedside and supports the history. Allergies Allergy/AdvReac Type Severity Reaction Status Date / Time Penicillins Allergy Mild RASH Verified 03/24/22 10:17 albuterol [From ProAir HFA] AdvReac Intermediate Dizziness Verified 03/24/22 10:17 Home Medications Medication Instructions Recorded Confirmed Type calcium carbonate 600 mg-vitamin 1 tab PO BID 11/20/18 03/24/22 History D3 20 mcg (800 unit) chewable tablet (Caltrate 600 plus D) lamotrigine 25 mg tablet (Lamictal) 25 mg PO BID 08/12/20 03/24/22 History acetaminophen 500 mg tablet 1,000 mg PO Q6H PRN 08/26/20 03/24/22 History (Tylenol Extra Strength) levothyroxine 88 mcg tablet 88 mcg PO QAM 12/09/20 03/24/22 History (Synthroid) famotidine 20 mg tablet 20 mg PO BID #20 tab 03/17/22 03/24/22 Rx Past Med/Surg History Medical History (Updated 03/24/22 @ 12:39 by Harper Vanegas PA-C) Altered mental status Bipolar disorder Bladder cancer CKD (chronic kidney disease), stage IV CKD (chronic kidney disease), stage IV COPD (chronic obstructive pulmonary disease) COPD (chronic obstructive pulmonary disease) Dizziness History of kidney cancer Hypothyroidism Intractable pain Malignant tumor of kidney Malignant tumor of urinary bladder Neuropathy Osteoarthritis S/p nephrectomy Tobacco abuse Tobacco abuse Urothelial cancer (~2010) UTI (urinary tract infection) Surgical History H/O dilation and curettage H/O: hysterectomy History of partial hysterectomy Hx of total knee arthroplasty S/p nephrectomy "Left" Family History Aunt Heart disease [place] in her 50s Mother Breast cancer Father Prostate cancer Social History Smoking Status: Current every day smoker Tobacco Type: Cigarettes Years Smoked: 20; Cigarettes Per Day: 7; Second Hand Exposure: No; Hx Alcohol Use: No Hx Substance Use: No Preferred Language: [place] Communication Ability: Effective Visual Impairment: No Limitations Hearing Ability: Normal Film Crew Member Required: No Beliefs That Will Affect Care: None marital status: / Current Living Situation: Alone Feels Safe at Home: Yes Assistive Devices: None Review of Systems Review of Systems: Constitutional: No fever, sweats or chills, + lightheaded and dizzy as per HPI Eyes: No diplopia, no worsening or blurred vision ENT: normal hearing, + trouble swallowing as per HPI Respiratory: + cough, no sputum, +dyspnea on exertion, not at rest Cardiovascular: +chest pain which she describes as chronic, achey, no tightness or palpitations Abdomen: No pain, nausea, vomiting, diarrhea or constipation Musculoskeletal: No joint pain, calf pain, swelling Neurologic: No weakness, numbness/tingling, or balance problems Psychiatric: No anxiety or depression, + bipolar disorder Skin: No rash or itch Physical Exam Physical Exam: Please refer to attending addendum. Results & Data Results & Data ([facility]) Vital Signs (Past 12 Hours) Vital Signs Temp Pulse Pulse Resp BP BP Pulse Ox 03/24/22 11:10 70 18 97 03/24/22 11:04 100 H 22 117/76 100 03/24/22 09:49 132 H 03/24/22 09:39 36.2 C L 146 H 22 125/82 97 Laboratory Results 03/24/22 10:10 Aerobic Blood Culture - Pending Blood Anaerobic Blood Culture - Pending 03/24/22 10:10 Aerobic Blood Culture - Pending Blood Anaerobic Blood Culture - Pending 03/24/22 03/24/22 03/24/22 11:10 10:13 10:10 WBC RBC Hgb Hct MCV MCH MCHC RDW Std Deviation RDW Coeff of Margarito Plt Count MPV Immature Gran % (Auto) Neut % (Auto) Lymph % (Auto) Callahan % (Auto) Eos % (Auto) Baso % (Auto) Neut # (Auto) Lymph # (Auto) Callahan # (Auto) Eos # (Auto) Baso # (Auto) Immature Gran # (Auto) PT INR APTT PTT Ratio Sodium Potassium Chloride Carbon Dioxide Anion Gap BUN Creatinine Est Cr Clr Drug Dosing Est GFR ( Amer) Est GFR (Non-Af Amer) BUN/Creatinine Ratio Glucose Lactate 1.9 Calcium Magnesium Total Bilirubin AST ALT Alkaline Phosphatase Troponin I High Sens Total Protein Albumin Globulin Albumin/Globulin Ratio Procalcitonin TSH Free T4 Urine Color Yellow Urine Appearance Clear Urine pH 5.5 Ur Specific Leoma 1.016 Urine Protein 1+ H Urine Glucose (UA) Negative Urine Ketones Trace H Urine Blood Negative Urine Nitrite Negative Urine Bilirubin Negative Urine Urobilinogen Negative Ur Leukocyte Esterase Negative Urine WBC (Auto) 1-5 Urine RBC (Auto) 0-4 U Hyaline Cast (Auto) 1-5 U Epithel Cells (Auto) >30 H Urine Bacteria (Auto) Negative SARS-CoV-2 (PCR) NEGATIVE Influenza Type A (PCR) Negative Influenza Type B (PCR) Negative RSV (RT-PCR) Negative 03/24/22 03/24/22 03/24/22 09:53 09:53 09:53 WBC RBC Hgb Hct MCV MCH MCHC RDW Std Deviation RDW Coeff of Margarito Plt Count MPV Immature Gran % (Auto) Neut % (Auto) Lymph % (Auto) Callahan % (Auto) Eos % (Auto) Baso % (Auto) Neut # (Auto) Lymph # (Auto) Callahan # (Auto) Eos # (Auto) Baso # (Auto) Immature Gran # (Auto) PT INR APTT PTT Ratio Sodium 140 Potassium 3.7 Chloride 103 Carbon Dioxide 23 Anion Gap 14 H BUN 37 H Creatinine 1.74 H Est Cr Clr Drug Dosing 15.3 Est GFR ( Amer) 31.1 Est GFR (Non-Af Amer) 26.8 BUN/Creatinine Ratio 21.3 H Glucose 213 H Lactate Calcium 10.5 H Magnesium 2.1 Total Bilirubin 0.8 AST 22 ALT 12 Alkaline Phosphatase 90 Troponin I High Sens Total Protein 8.3 Albumin 4.8 Globulin 3.5 Albumin/Globulin Ratio 1.4 Procalcitonin < 0.05 TSH 68.488 H Free T4 0.57 L Urine Color Urine Appearance Urine pH Ur Specific Leoma Urine Protein Urine Glucose (UA) Urine Ketones Urine Blood Urine Nitrite Urine Bilirubin Urine Urobilinogen Ur Leukocyte Esterase Urine WBC (Auto) Urine RBC (Auto) U Hyaline Cast (Auto) U Epithel Cells (Auto) Urine Bacteria (Auto) SARS-CoV-2 (PCR) Influenza Type A (PCR) Influenza Type B (PCR) RSV (RT-PCR) 03/24/22 03/24/22 03/24/22 09:53 09:53 09:53 WBC 6.80 RBC 4.64 Hgb 14.6 Hct 46.4 MCV 100.0 MCH 31.5 MCHC 31.5 L RDW Std Deviation 51.8 H RDW Coeff of Margarito 14.2 Plt Count 332 MPV 10.1 Immature Gran % (Auto) 0.1 Neut % (Auto) 76.7 Lymph % (Auto) 18.1 Callahan % (Auto) 4.4 Eos % (Auto) 0.6 Baso % (Auto) 0.1 Neut # (Auto) 5.21 Lymph # (Auto) 1.23 Callahan # (Auto) 0.30 Eos # (Auto) 0.04 Baso # (Auto) 0.01 Immature Gran # (Auto) 0.01 PT 10.2 INR 1.0 APTT 24.7 PTT Ratio 0.9 Sodium Potassium Chloride Carbon Dioxide Anion Gap BUN Creatinine Est Cr Clr Drug Dosing Est GFR ( Amer) Est GFR (Non-Af Amer) BUN/Creatinine Ratio Glucose Lactate Calcium Magnesium Total Bilirubin AST ALT Alkaline Phosphatase Troponin I High Sens 17.4 H D Total Protein Albumin Globulin Albumin/Globulin Ratio Procalcitonin TSH Free T4 Urine Color Urine Appearance Urine pH Ur Specific Leoma Urine Protein Urine Glucose (UA) Urine Ketones Urine Blood Urine Nitrite Urine Bilirubin Urine Urobilinogen Ur Leukocyte Esterase Urine WBC (Auto) Urine RBC (Auto) U Hyaline Cast (Auto) U Epithel Cells (Auto) Urine Bacteria (Auto) SARS-CoV-2 (PCR) Influenza Type A (PCR) Influenza Type B (PCR) RSV (RT-PCR) Diagnostic Findings Chest X-Ray 03/24/22 09:59 XR chest 1V portable HISTORY: Confusion. SEPSIS COMPARISON: Chest 03/17/2022. FINDINGS: No pneumothorax. No pleural effusions. Severe levoscoliosis of the thoracolumbar spine centered at the L2 level again noted. Left subclavian Port-A-Cath runs at the proximal SVC, unchanged. The heart is normal in size. There are old, healed left-sided rib fractures. Lungs are hyperexpanded with apical predominant emphysematous changes. No new focal lung consolidations to suggest pneumonia. No evidence for pulmonary edema. Chronic compression deformities again noted within the lower thoracic spine. Advanced degenerative changes within the left shoulder IMPRESSION: No significant change compared to the prior study. No acute process. ACT 112: Negative or not required by law. Electronically signed by: David Dickerson M.D. 03/24/2022 10:44 AM ECG Additional Comments: 24-MAR-2022 11:24:33 [facility]-EDSTAT ROUTINE RETRIEVAL Poor data quality, interpretation may be adversely affected sinus rhythm Septal infarct (cited on or before 26-AUG-2020) Abnormal ECG When compared with ECG of 24-MAR-2022 09:49, (unconfirmed) Significant changes have occurred 25mm/s10mm/[id number] 241CID: 15Referred by: [facility] Unconfirmed Vent. 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 Pt is currently in the assisted living facility ([facility]). Per pt she takes her levothyroxine intermittently. She also complained of chronic CP and SOB with coughing when she eats. Walks with walker at baseline. PE: Mildly cachectic, NAD HEENT: no enlargement of the tongue or thyroid gland Card: Normal S1/S2 with possible systolic murmur Lungs: CTA, no wheezing or crackles Abd: Soft, ND, NT MSK: no edema Psych: AAOx3 A/P: Tachycardia with chronic CP and SOB: -pt was initially tachycardia (HR 134) with widen QRS ---- it improved with fluids -hsTrop was elevated ---- repeat EKG showed NSR w/o any ST elevation -will trend trop and Echo -admit to tele -tachycardia could be 2/2 dehydration vs possibly due to hypothyroidism -pt complained of cough with eating thus will get speech eval -will do chopped/minced diet - due to generalized weakness will get PT/OT consult Uncontrolled Hypothyroidism: -pt dose not take levothyroxine consistently -will continue home levothyroxine dose: 88 mcg daily KECIA on CKD III (baseline Cr: 1.1) : -2/2 dehydration + hypothyroidism -will trend BMP Urothelial carcinoma s/p L nephrectomy and chemo: -pt still has her port in place - per pt she had the port placed 10 years ago - PCP follow up to remove the port Agree with A/P by Harper Vanegas PA-C
[2022-03-24] MEDS ORDERED: SODIUM CHLORIDE 0.9% 1000ML 1,000 ML IV SCH (12:15)
[2022-03-24 12:22] LABS: T4 Free Thyroxine 0.57 ng/dl (0.61-1.60)
--- NOTE | 2022-03-24 13:51 | Electrocardiogram Report ---
Test Reason : Blood Pressure : / mmHG Vent. Rate : 134 BPM Atrial Rate : 134 BPM P-R Int : 178 ms QRS Dur : 112 ms QT Int : 280 ms P-R-T Axes : 051 044 199 degrees QTc Int : 418 ms Poor data quality, interpretation may be adversely affected Sinus tachycardia Possible Left atrial enlargement Septal infarct , age undetermined Left bundle branch block Abnormal ECG When compared with ECG of 17-MAR-2022 10:02, Significant changes have occurred Confirmed by Tej Pierce ([id number]) on 03/24/2022 1:51:27 PM Referred By: [facility] Confirmed By:Tej Pierce
--- NOTE | 2022-03-24 13:53 | Electrocardiogram Report ---
Test Reason : Blood Pressure : / mmHG Vent. Rate : 072 BPM Atrial Rate : 072 BPM P-R Int : 190 ms QRS Dur : 068 ms QT Int : 362 ms P-R-T Axes : 063 058 051 degrees QTc Int : 396 ms Poor data quality, interpretation may be adversely affected Normal sinus rhythm Septal infarct (cited on or before 26-AUG-2020) Abnormal ECG When compared with ECG of 24-MAR-2022 09:49, (unconfirmed) Significant changes have occurred Confirmed by Tej Pierce ([id number]) on 03/24/2022 1:52:54 PM Referred By: [facility] Confirmed By:Tej Pierce
[2022-03-24] MEDS ORDERED: ONDANSETRON INJ 2 MG/ML 2 ML VIAL IV PRN (14:48)
[2022-03-24] MEDS ORDERED: ACETAMINOPHEN 500 MG TAB PO PRN (14:48)
[2022-03-24] MEDS: NICOTINE 14 MG/24 HR PATCH TD SCH (15:49)
[2022-03-24] MEDS: FAMOTIDINE 20 MG TAB PO SCH (20:31)
[2022-03-24] MEDS: CALCIUM 600MG + VIT D 400 IU TAB PO SCH (20:31)
[2022-03-24] MEDS: HEPARIN SOD 5,000 UNIT/0.5 ML VIAL SQ SCH (20:32)
[2022-03-24] MEDS: ACETAMINOPHEN 325 MG TAB PO PRN (20:33)
[2022-03-24] MEDS: lamoTRIgine 25 MG TAB PO SCH (20:33)
[2022-03-25] MEDS ORDERED: LORazepam 0.5 MG TAB PO STA (01:47)
[2022-03-25] MEDS: ACETAMINOPHEN 325 MG TAB PO PRN ×2 (05:53→20:01)
[2022-03-25] MEDS ORDERED: LEVOTHYROXINE SODIUM 88 MCG TABLET PO SCH ×2 (06:30→09:00)
[2022-03-25 08:58] LABS: Hematocrit (blood only) 39.4 % (37-47); Hemoglobin 12.5 g/dL (12.0-16.0); Mean Corpuscular Hemoglobin 30.6 pg (25-34); Mean Corpuscular Hgb Conc 31.7 g/dL (32-36); Mean Corpuscular Volume 96.6 fL (80-100); Platelet Count 257 K/uL (130-400); RDW Standard Deviation 49.5 fL (36.4-46.3); Red Blood Count 4.08 M/uL (4.2-5.4); White Blood Count 5.15 K/uL (4.8-10.8)
[2022-03-25] MEDS: FAMOTIDINE 20 MG TAB PO SCH ×2 (09:39→19:54)
[2022-03-25] MEDS: CALCIUM 600MG + VIT D 400 IU TAB PO SCH ×2 (09:39→19:54)
[2022-03-25] MEDS: HEPARIN SOD 5,000 UNIT/0.5 ML VIAL SQ SCH ×2 (09:40→20:07)
[2022-03-25] MEDS: lamoTRIgine 25 MG TAB PO SCH ×2 (09:40→19:55)
[2022-03-25] MEDS: NICOTINE 14 MG/24 HR PATCH TD SCH ×2 (09:40→20:03)
[2022-03-25 09:50] LABS: Albumin Globulin Ratio 1.5 (0.9-2); Albumin Level 3.8 gm/dl (3.4-5.0); BUN Creatinine Ratio 22.5 (10-20); Bilirubin,Total 0.6 mg/dl (0.2-1.0); Calcium 9.3 mg/dl (8.5-10.1); Creatinine Clr Calc Pharmacy 20.6 ml/min; Est GFR (African American) 44.7 ml/min; Est GFR (Non-African American) 38.5 ml/min; Globulin 2.6 gm/dl (2.5-4.0); Magnesium 1.7 mg/dl (1.7-2.4); Phosphorus 2.5 mg/dl (2.5-4.9); Potassium 3.8 mmol/L (3.5-5.1); Total Protein 6.4 gm/dl (6.0-8.3)
--- NOTE | 2022-03-25 14:13 | Hospitalist Progress Note ---
Date of Service March 25, 2022 Assessment & Plan (1) Sinus tachycardia: (2) Acute kidney injury superimposed on CKD: (3) Dehydration: Plan: Per admitting service notes with addendum - Admit to med surg with tele - EKG repeated after being given 1 L of fluids in the ER, no other pharmacological treatment was administered, and her VS improved, and EKG also improved. - Will continue on fluids running slow maintenance fluids - Cr elevated at 1.74, baseline of 1.0-1.1 - Hx of bladder cancer and renal cell carcinoma s/p left nephrectomy Sep 2011 - C/o dizziness/lightheaded chronic, likely secondary to dehydration and will improve - PT/OT consults -Med rec none left subclavian not accessed, from history of cancer in 2010, just never removed - Follow urine culture for completeness with trace ketones on UA 03/25 Creatinine improving from 1.7-1.2 Appetite improving Continue to monitor (4) COPD (chronic obstructive pulmonary disease): (5) Tobacco abuse: (6) SOB (shortness of breath): Plan: - Pt currently smokes 0.5 ppd, does not want to stop, encouraged cessation at bedside - Nicotine patch 14 mcg as needed - CXR was reviewed, no pulmonary edema, old left-sided rib fractures which are h ealed, chronic compression deformities with severe levoscoliosis of the thoracic and lumbar spine, advanced degenerative changes in the left shoulder - O2 prn, currently on room air - negative COVID/RSV/Influ on admission 03/25 Saturating well on room air Resolved (7) Severe malnutrition: Plan: - BMI of 13.8, will add boost supplementation with meals - Speech therapy consulted for issues with swallowing- may benefit from video swallowing study (8) Hypothyroidism: Plan: -Patient reported noncompliance with her medications with thyroid, reports that she last took her levothyroxine on Sunday or Sunday earlier this week. -TSH is 68.49 on admission, will need recheck in 4 to 6-week with compliance with taking meds 03/25 Levothyroxine increased 200 mcg x 2 days Then resume usual 88 mcg (9) Bipolar disorder: Plan: -Continue Lamictal 25 mg twice daily (10) Neuropathy: Plan: -Chronic, may continue to use Tylenol DVT ppx - teds, scds, heparin subq CODE: DNR/DNI Dispo: From home, likely to remain in the hospital x 1-2 days Admission and Anticipated Discharge Date Admission Date: March 24, 2022 Subjective ff up for weakness, dehydration, etc seen resting in bed, sitting up states she feels somewhat better compared to yesterday appetite better no chest pain, dyspnea, palpitations, dizziness no abdominal pain, nausea/vomiting, diarrhea no other symptoms Review of Systems Review of Systems: all noted and negative except for above Physical Exam Physical Exam: General- oriented x 3, not in distress, speaks in sentences with no effort or accessory muscle use frail looking Eyes- anicteric Neck- no JVD Lungs- clear BS bilaterally, no rales/wheezes Heart- normal rate, regular rhythm; no murmurs Abdomen- normal bowel sounds, nondistended, soft, nontender Extremities- no pretibial edema, no calf tenderness Neuro- alert, oriented x 3; no gross focal neurologic deficits Skin- warm & dry Results & Data Results & Data ([facility]) Vital Signs (Past 12 Hours) Vital Signs Temp Pulse Resp BP BP Pulse Ox 03/25/22 11:15 36.6 C 85 18 118/70 96 03/25/22 07:26 36.7 C 60 19 132/70 91 all noted and reviewed including below (1) COPD (chronic obstructive pulmonary disease) COPD type: unspecified COPD Qualified Code(s): J44.9 - Chronic obstructive pulmonary disease, unspecified
[2022-03-26] MEDS ORDERED: LEVOTHYROXINE SODIUM 100 MCG TABLET PO SCH (06:30)
[2022-03-26] MEDS: FAMOTIDINE 20 MG TAB PO SCH ×2 (09:11→20:29)
[2022-03-26] MEDS: lamoTRIgine 25 MG TAB PO SCH ×2 (09:11→20:30)
[2022-03-26] MEDS: CALCIUM 600MG + VIT D 400 IU TAB PO SCH ×2 (09:11→20:28)
[2022-03-26 09:13] LABS: BUN Creatinine Ratio 26.4 (10-20); Calcium 9.7 mg/dl (8.5-10.1); Est GFR (African American) 48.3 ml/min; Est GFR (Non-African American) 41.6 ml/min; Potassium 4.2 mmol/L (3.5-5.1)
[2022-03-26] MEDS: ACETAMINOPHEN 325 MG TAB PO PRN ×2 (09:13→19:07)
[2022-03-26] MEDS: HEPARIN SOD 5,000 UNIT/0.5 ML VIAL SQ SCH ×2 (10:24→20:32)
[2022-03-26] MEDS: NICOTINE 14 MG/24 HR PATCH TD SCH (10:24)
[2022-03-26] MEDS ORDERED: GABAPENTIN 100 MG CAP PO SCH (15:55)
--- NOTE | 2022-03-26 16:59 | Hospitalist Progress Note ---
Date of Service March 26, 2022 Assessment & Plan (1) Sinus tachycardia: (2) Acute kidney injury superimposed on CKD: (3) Dehydration: Plan: Per admitting service notes with addendum - Admit to med surg with tele - EKG repeated after being given 1 L of fluids in the ER, no other pharmacological treatment was administered, and her VS improved, and EKG also improved. - Will continue on fluids running slow maintenance fluids - Cr elevated at 1.74, baseline of 1.0-1.1 - Hx of bladder cancer and renal cell carcinoma s/p left nephrectomy Sep 2011 - C/o dizziness/lightheaded chronic, likely secondary to dehydration and will improve - PT/OT consults -Med rec none left subclavian not accessed, from history of cancer in 2010, just never removed - Follow urine culture for completeness with trace ketones on UA 03/26 Creatinine improved from 1.7-1.2 Appetite improving Continue to monitor (4) COPD (chronic obstructive pulmonary disease): (5) Tobacco abuse: (6) SOB (shortness of breath): Plan: - Pt currently smokes 0.5 ppd, does not want to stop, encouraged cessation at bedside - Nicotine patch 14 mcg as needed - CXR was reviewed, no pulmonary edema, old left-sided rib fractures which are healed, chronic compression deformities with severe levoscoliosis of the thoracic and lumbar spine, advanced degenerative changes in the left shoulder - O2 prn, currently on room air - negative COVID/RSV/Influ on admission 03/26 Saturating well on room air Resolved (7) Severe malnutrition: Plan: - BMI of 13.8, will add boost supplementation with meals - Speech therapy consulted for issues with swallowing- may benefit from video swallowing study (8) Hypothyroidism: Plan: -Patient reported noncompliance with her medications with thyroid, reports that she last took her levothyroxine on Sunday or Sunday earlier this week. -TSH is 68.49 on admission, will need recheck in 4 to 6-week with compliance with taking meds 03/26 Levothyroxine increased 100 mcg x 2 days Then resume usual 88 mcg (9) Bipolar disorder: Plan: -Continue Lamictal 25 mg twice daily (10) Neuropathy: Plan: -Chronic - (+) flare up today trial of Gabapentin 100mg BID (patient willing to try again) patient states Tylenol and Tramadol does not work avoiding NSAIDs as patient has KECIA, solitary kidney avoiding narcotics for possible adverse effect given patient's age DVT ppx - teds, scds, heparin subq CODE: DNR/DNI Dispo: From home, likely to remain in the hospital x 1-2 days plan of care discussed with patient in detail and at length all questions answered she is understanding, agreeable, comfortable with the plan of care Admission and Anticipated Discharge Date Admission Date: March 24, 2022 Subjective ff up for weakness, etc seen resting in bed, not in distress comfortable states she has nerve pain on both arms and legs no chest pain, dyspnea, palpitations, dizziness no other symptoms Review of Systems Review of Systems: all noted and negative except for above Physical Exam Physical Exam: General- oriented x 3, not in distress, speaks in sentences with no effort or accessory muscle use Eyes- anicteric Neck- no JVD Lungs- clear breath sounds BL Heart- normal rate, regular rhythm; no murmurs Abdomen- normal bowel sounds, nondistended, soft, nontender Extremities- no pretibial edema, no calf tenderness Neuro- alert, oriented x 3; no gross focal neurologic deficits Skin- warm & dry Results & Data Results & Data ([facility]) Vital Signs (Past 12 Hours) Vital Signs Temp Pulse Pulse Resp BP Pulse Ox 03/26/22 15:24 36.7 C 69 19 118/64 96 03/26/22 15:19 64 03/26/22 10:59 36.3 C L 59 L 19 151/88 H 97 03/26/22 07:48 87 03/26/22 06:40 36.8 C 75 20 144/90 H 93 all noted and reviewed including below (1) COPD (chronic obstructive pulmonary disease) COPD type: unspecified COPD Qualified Code(s): J44.9 - Chronic obstructive pulmonary disease, unspecified
[2022-03-26] MEDS: GABAPENTIN 100 MG CAP PO SCH ×2 (19:08→19:11)
[2022-03-27] MEDS: ACETAMINOPHEN 325 MG TAB PO PRN ×2 (02:17→21:24)
[2022-03-27] MEDS: LEVOTHYROXINE SODIUM 88 MCG TABLET PO SCH (05:40)
[2022-03-27 07:10] LABS: BUN Creatinine Ratio 23.3 (10-20); Calcium 9.7 mg/dl (8.5-10.1); Creatinine Clr Calc Pharmacy 22.1 ml/min; Est GFR (African American) 48.7 ml/min; Est GFR (Non-African American) 42.1 ml/min; Potassium 4.7 mmol/L (3.5-5.1)
[2022-03-27] MEDS: CALCIUM 600MG + VIT D 400 IU TAB PO SCH ×2 (09:13→20:03)
[2022-03-27] MEDS: FAMOTIDINE 20 MG TAB PO SCH ×2 (09:13→20:03)
[2022-03-27] MEDS: HEPARIN SOD 5,000 UNIT/0.5 ML VIAL SQ SCH ×2 (09:14→20:03)
[2022-03-27] MEDS: lamoTRIgine 25 MG TAB PO SCH ×2 (09:14→20:03)
[2022-03-27] MEDS: NICOTINE 14 MG/24 HR PATCH TD SCH (09:14)
[2022-03-27] MEDS: GABAPENTIN 100 MG CAP PO SCH (09:14)
[2022-03-27] MEDS ORDERED: SODIUM CHLORIDE 0.9% 1000ML 1,000 ML IV SCH (12:00)
--- NOTE | 2022-03-27 12:54 | CT Scan Report ---
HEAD CT NONCONTRAST CT DOSE: 720.95 mGycm HISTORY: headache, persistent TECHNIQUE: Multiaxial CT images of the head were performed without the use of intravenous contrast. A utomated exposure control was utilized for this study. A dose lowering technique was utilized adheri ng to the principles of ALARA. Comparison: Chest 02/20/2022. Findings: The paranasal sinuses and mastoid air cells are clear. The calvarium and skull base are int act. There is no mass, hematoma, midline shift, acute infarct. White matter hypodensity is nonspecifi c but suggestive of microvascular ischemic change. The ventricles and sulci demonstrate mild age-rela zulema involutional changes. Impression: No significant change compared to the prior study. No acute intracranial abnormality. ACT 112: Negative or not required by law. Electronically signed by: David Dickerson M.D. 03/27/2022 12:53 PM
--- NOTE | 2022-03-27 17:31 | Hospitalist Progress Note ---
Date of Service March 27, 2022 delayed entry date of service noted above Assessment & Plan (1) Sinus tachycardia: (2) Acute kidney injury superimposed on CKD: (3) Dehydration: Plan: Per admitting service notes with addendum - Admit to med surg with tele - EKG repeated after being given 1 L of fluids in the ER, no other pharmacological treatment was administered, and her VS improved, and EKG also improved. - Will continue on fluids running slow maintenance fluids - Cr elevated at 1.74, baseline of 1.0-1.1 - Hx of bladder cancer and renal cell carcinoma s/p left nephrectomy Sep 2011 - C/o dizziness/lightheaded chronic, likely secondary to dehydration and will im prove - PT/OT consults -Med rec none left subclavian not accessed, from history of cancer in 2010, just never removed - Follow urine culture for completeness with trace ketones on UA 03/27 Creatinine improved from 1.7-1.2 Appetite improving Continue to monitor (4) COPD (chronic obstructive pulmonary disease): (5) Tobacco abuse: (6) SOB (shortness of breath): Plan: - Pt currently smokes 0.5 ppd, does not want to stop, encouraged cessation at bedside - Nicotine patch 14 mcg as needed - CXR was reviewed, no pulmonary edema, old left-sided rib fractures which are healed, chronic compression deformities with severe levoscoliosis of the thoracic and lumbar spine, advanced degenerative changes in the left shoulder - O2 prn, currently on room air - negative COVID/RSV/Influ on admission 03/27 Saturating well on room air Resolved (7) Severe malnutrition: Plan: - BMI of 13.8, will add boost supplementation with meals - Speech therapy consulted for issues with swallowing- diet advanced (8) Hypothyroidism: Plan: -Patient reported noncompliance with her medications with thyroid, reports that she last took her levothyroxine on Sunday or Sunday earlier this week. -TSH is 68.49 on admission 03/27 Levothyroxine increased 100 mcg x 2 days Then resume usual 88 mcg repeat T4 tomorrow repeat TFTs in 3-[address] [facility] (9) Bipolar disorder: Plan: -Continue Lamictal 25 mg twice daily (10) Neuropathy: Plan: -Chronic - (+) flare up trial of Gabapentin 100mg BID (patient willing to try again)--> patient reports not effective patient states Tylenol and Tramadol does not work avoiding NSAIDs as patient has KECIA, solitary kidney avoiding narcotics for possible adverse effect given patient's age - will consult pain management service CT head: no acute procress DVT ppx - teds, scds, heparin subq CODE: DNR/DNI Dispo: from [facility] PT/OT recommend return to [facility] when medically stable plan of care discussed with patient in detail and at length all questions answered she is understanding, agreeable, comfortable with the plan of care Admission and Anticipated Discharge Date Admission Date: March 24, 2022 Subjective ff up for weakness, etc seen resting in bed, comfortable not in distress reports mild headache, no nausea, dizziness no chest pain, dyspnea, palpitations no other symptoms Review of Systems Review of Systems: all noted and negative except for above Physical Exam Physical Exam: General- oriented x 3, not in distress, speaks in sentences with no effort or accessory muscle use frail looking Eyes- anicteric Neck- no JVD Lungs- clear BS BL Heart- normal rate, regular rhythm; no murmurs Abdomen- normal bowel sounds, nondistended, soft, no tenderness Extremities- no pretibial edema, no calf tenderness Neuro- alert, oriented x 3; no gross focal neurologic deficits Skin- warm & dry Results & Data Results & Data ([facility]) Vital Signs (Past 12 Hours) Vital Signs Temp Pulse Resp BP Pulse Ox 03/27/22 15:24 36.8 C 79 16 138/72 95 03/27/22 11:20 37.1 C 66 16 105/58 L 92 03/27/22 07:44 37.0 C 65 16 98/50 L 96 all noted and reviewed including below (1) COPD (chronic obstructive pulmonary disease) COPD type: unspecified COPD Qualified Code(s): J44.9 - Chronic obstructive pulmonary disease, unspecified
[2022-03-27] MEDS ORDERED: diphenhydrAMINE Capsule 25 MG CAP PO PRN (18:54)
[2022-03-28] MEDS: LEVOTHYROXINE SODIUM 88 MCG TABLET PO SCH (05:53)
[2022-03-28] MEDS: CALCIUM 600MG + VIT D 400 IU TAB PO SCH ×2 (09:53→21:24)
[2022-03-28] MEDS: FAMOTIDINE 20 MG TAB PO SCH ×2 (09:53→21:24)
[2022-03-28] MEDS: HEPARIN SOD 5,000 UNIT/0.5 ML VIAL SQ SCH ×2 (09:54→21:24)
[2022-03-28] MEDS: NICOTINE 14 MG/24 HR PATCH TD SCH (09:54)
[2022-03-28] MEDS: lamoTRIgine 25 MG TAB PO SCH ×2 (09:54→21:24)
--- NOTE | 2022-03-28 12:40 | Pain Management Consultation ---
Date of Consultation March 28, 2022 Assessment & Plan (1) Neuropathy: (2) Bipolar disorder: 1. Patient has previously reported failure of gabapentin and pregabalin due to ineffectiveness and side effect profile. We discussed a trial of Keppra and she was agreeable. We will initiate Keppra 250 mg p.o. nightly tonight and then transition to twice daily tomorrow. Side effects versus benefits were reviewed. 2. Would limit utilization of opiate therapy given her comorbid medical conditions 3. As needed utilization of tramadol is appropriate 4. Consider trial of compounded cream in the outpatient setting Thank you for allowing us to participate in the care of Mrs. Hou. History of Present Illness Reason for Consultation: Peripheral neuropathic pain Requesting Physician: Ben Hugo MD Attending Physician: Ben Hugo MD History of Present Illness Mrs. Hou is an 81-year-old white female who was admitted shortness of breath and dyspnea and was found to be in sinus tachycardia with acute kidney injury superimposed on CKD with dehydration. Her symptoms have improved during hospitalization. She has complained of her chronic peripheral neuropathic pain and pain service was consulted to further discuss she reports pain is been pre sent for greater than 6 years in duration affecting the bilateral lower extremities in nondermatomal patterns involving the feet extending to the knees. She denies axial low back pain or any lumbar radicular component to her complaints. She describes sharp, shooting and [id number] discomfort. She rates the pain initially at 10/10, but after discussing pain scale in more detail she rated her pain an 8/10. Patient reports that she has previously trialed gabapentin without efficacy at potential maximum dose of 300 mg 3 times daily. She also reported a previous trial of pregabalin which caused side effects with "shaking" per her report. Patient is unaware of any potential underlying cause of her neuropathy as she has no personal history of diabetes mellitus. Previous work-up is unavailable for review. Patient reports her pain is similar location and characteristic as chronic without any significant change in severity recently upon this admission. Her pain complaints was not her primary reason for admission. Patient has no further constitutional complaints. Plan of care discussed with Dr. Shayy Dye. Pain Assessment Full Body Front + Back: 1. Bilateral feet, ankle and pretibial region in nondermatomal pattern Pain scale - at its best (0-10): 6 Pain scale - at its worst (0-10): 8 Allergies Allergy/AdvReac Type Severity Reaction Status Date / Time Penicillins Allergy Mild RASH Verified 03/24/22 10:17 albuterol [From ProAir HFA] AdvReac Intermediate Dizziness Verified 03/24/22 10:17 Home Medications Medication Instructions Recorded Confirmed Type calcium carbonate 600 mg-vitamin 1 tab PO BID 11/20/18 03/24/22 History D3 20 mcg (800 unit) chewable tablet (Caltrate 600 plus D) lamotrigine 25 mg tablet (Lamictal) 25 mg PO BID 08/12/20 03/24/22 History acetaminophen 500 mg tablet 1,000 mg PO Q6H PRN 08/26/20 03/24/22 History (Tylenol Extra Strength) levothyroxine 88 mcg tablet 88 mcg PO QAM 12/09/20 03/24/22 History (Synthroid) famotidine 20 mg tablet 20 mg PO BID #20 tab 03/17/22 03/24/22 Rx Pain History Pain Intensity Pain scale - at its best (0-10): 6 Pain scale - at its worst (0-10): 8 Patient History Medical History (Updated 03/24/22 @ 16:44 by Maxi Nickerson MD) Altered mental status Bipolar disorder Bladder cancer CKD (chronic kidney disease), stage IV CKD (chronic kidney disease), stage IV COPD (chronic obstructive pulmonary disease) COPD (chronic obstructive pulmonary disease) Dizziness History of kidney cancer Hypothyroidism Intractable pain Malignant tumor of kidney Malignant tumor of urinary bladder Neuropathy Osteoarthritis S/p nephrectomy Tobacco abuse Tobacco abuse Urothelial cancer (~2010) UTI (urinary tract infection) Surgical History H/O dilation and curettage H/O: hysterectomy History of partial hysterectomy Hx of total knee arthroplasty S/p nephrectomy "Left" Family History Aunt Heart disease PR in her 50s Mother Breast cancer Father Prostate cancer Social History Smoking Status: Current every day smoker Tobacco Type: Cigarettes Years Smoked: 20; Cigarettes Per Day: 5; Second Hand Exposure: No; Do You Dip or Chew Tobacco: No; Tobacco Cessation Education Requested by Patient: No Hx Alcohol Use: No Hx Substance Use: No Preferred Language: Angolan Communication Ability: Effective Visual Impairment: No Limitations Hearing Ability: Normal Stacker Straightener Required: No Beliefs That Will Affect Care: None marital status: / Current Living Situation: Alone How many Children do You have: 1 Other Information That Helps Us Care for You: No Feels Safe at Home: Yes Safety Concerns: Feels Safe At This Time Assistive Devices: Walker Physical Exam Physical Exam: General: Patient sitting quietly in exam room in no acute distress. Speech and thought process appropriate. Mood and affect appropriate. Cognition intact. Head: Normocephalic and atraumatic. ENT: No evidence of nasal or oral mucosal lesions. Mucous membranes are moist. Poor dentition. Eyes: Pupils equal round reactive to light. Neck: Supple without adenopathy and full range of motion. Patient is moderately tender in the mid trapezius region bilaterally. Upper extremities: Diffuse thickening of DIP, PIP and MCP joints with some ulnar deviation was appreciated. No erythema or warmth of peripheral joints. Chest: Nontender to palpation of the costosternal junction. Abdomen: Soft and nondistended. No organomegaly. Bowel sounds active. Back/spine: Complete loss of lumbar lordosis. Nontender over the midline. No focal facet or SI joint tenderness. Lower extremities: SLR negative bilaterally. Strength testing 4+/5 throughout bilateral lower extremities without focal deficit. Sensation intact distally. A few scattered dysesthesias were noted. Dorsalis pedis and posterior tibial pulses 1+ equal bilaterally. Neurologic: Cranial nerves grossly intact. Ambulatory function not witnessed.
--- NOTE | 2022-03-28 15:04 | Hospitalist Progress Note ---
Date of Service March 28, 2022 Assessment & Plan (1) Sinus tachycardia: (2) Acute kidney injury superimposed on CKD: (3) Dehydration: Plan: Per admitting service notes with addendum - Admit to med surg with tele - EKG repeated after being given 1 L of fluids in the ER, no other pharmacological treatment was administered, and her VS improved, and EKG also improved. - Will continue on fluids running slow maintenance fluids - Cr elevated at 1.74, baseline of 1.0-1.1 - Hx of bladder cancer and renal cell carcinoma s/p left nephrectomy Sep 2011 - C/o dizziness/lightheaded chronic, likely secondary to dehydration and will improve - PT/OT consults -Med rec none left subclavian not accessed, from history of cancer in 2010, just never removed - Follow urine culture for completeness with trace ketones on UA 03/28 Creatinine improved from 1.7-1.2 Appetite improving Continue to monitor (4) COPD (chronic obstructive pulmonary disease): (5) Tobacco abuse: (6) SOB (shortness of breath): Plan: - Pt currently smokes 0.5 ppd, does not want to stop, encouraged cessation at bedside - Nicotine patch 14 mcg as needed - CXR was reviewed, no pulmonary edema, old left-sided rib fractures which are healed, chronic compression deformities with severe levoscoliosis of the thoracic and lumbar spine, advanced degenerative changes in the left shoulder - O2 prn, currently on room air - negative COVID/RSV/Influ on admission 03/28 Saturating well on room air Resolved (7) Severe malnutrition: Plan: - BMI of 13.8, will add boost supplementation with meals - Speech therapy consulted for issues with swallowing- diet advanced (8) Hypothyroidism: Plan: -Patient reported noncompliance with her medications with thyroid, reports that she last took her levothyroxine on Sunday or Sunday earlier this week. -TSH is 68.49 on admission 03/28 Levothyroxine increased 100 mcg x 2 days Then resume usual 88 mcg today repeat T4 tomorrow repeat TFTs in 3-[address] [facility] (9) Bipolar disorder: Plan: -Continue Lamictal 25 mg twice daily (10) Neuropathy: Plan: -Chronic - (+) flare up trial of Gabapentin 100mg BID (patient willing to try again)--> patient reports not effective patient states Tylenol and Tramadol does not work avoiding NSAIDs as patient has KECIA, solitary kidney avoiding narcotics for possible adverse effect given patient's age - consulted pain management service: recommend Keppra 250mg BID, starting tonight monitor response CT head: no acute procress DVT ppx - teds, scds, heparin subq CODE: DNR/DNI Dispo: from [facility] PT/OT recommend return to [facility] when medically stable plan of care discussed with patient in detail and at length all questions answered she is understanding, agreeable, comfortable with the plan of care Admission and Anticipated Discharge Date Admission Date: March 24, 2022 Subjective ff up for dehydration, etc seen resting in bed, not in distress states she is having severe pain on her feet, legs, and upper arm- typical of her nerve pain no chest pain, dyspnea, palpitations, dizziness no headache no other symptoms Review of Systems Review of Systems: all noted and negative except for above Physical Exam Physical Exam: General- oriented x 3, not in distress, speaks in sentences with no effort or accessory muscle use frail Eyes- anicteric Neck- no JVD Lungs- clear breath sounds bilaterally, no rales/wheezes Heart- normal rate, regular rhythm; no murmurs Abdomen- normal bowel sounds, nondistended, soft, no tenderness Extremities- no pretibial edema/erythema/tenderness/warmth, no calf tenderness Neuro- alert, oriented x 3; no gross focal neurologic deficits Skin- warm & dry Results & Data Results & Data ([facility]) Vital Signs (Past 12 Hours) Vital Signs Temp Pulse Pulse Resp BP BP Pulse Ox 03/28/22 10:59 36.6 C 61 18 111/69 93 03/28/22 07:59 75 03/28/22 07:53 36.8 C 73 18 118/73 99 03/28/22 04:00 36.7 C 71 20 127/74 96 all noted and reviewed including below (1) COPD (chronic obstructive pulmonary disease) COPD type: unspecified COPD Qualified Code(s): J44.9 - Chronic obstructive pulmonary disease, unspecified
[2022-03-28] MEDS: levETIRAcetam 250 MG TAB PO SCH (21:24)
[2022-03-28] MEDS: ACETAMINOPHEN 325 MG TAB PO PRN (23:07)
[2022-03-29] MEDS: LEVOTHYROXINE SODIUM 88 MCG TABLET PO SCH (05:32)
[2022-03-29] MEDS: HEPARIN SOD 5,000 UNIT/0.5 ML VIAL SQ SCH ×2 (08:34→20:50)
[2022-03-29] MEDS: FAMOTIDINE 20 MG TAB PO SCH ×2 (08:34→20:50)
[2022-03-29] MEDS: CALCIUM 600MG + VIT D 400 IU TAB PO SCH ×2 (08:34→20:50)
[2022-03-29] MEDS: levETIRAcetam 250 MG TAB PO SCH ×2 (08:36→20:50)
[2022-03-29] MEDS: lamoTRIgine 25 MG TAB PO SCH ×2 (08:36→20:50)
[2022-03-29] MEDS: NICOTINE 14 MG/24 HR PATCH TD SCH (10:37)
--- NOTE | 2022-03-29 17:40 | Hospitalist Progress Note ---
Date of Service March 29, 2022 Assessment & Plan (1) Sinus tachycardia: (2) Acute kidney injury superimposed on CKD: (3) Dehydration: Plan: Acute Kidney Injury Cr1.7>>1.20 H/O Bladder cancer and renal cell carcinoma s/p left nephrectomy Sep 2011 Received IV fluids Monitor renal function (4) COPD (chronic obstructive pulmonary disease): (5) Tobacco abuse: (6) SOB (shortness of breath): Plan: Active smoker. Not interested to quit Encouraged cessation at bedside Nicotine patch 14 mcg as needed CXR was reviewed, no pulmonary edema, old left-sided rib fractures which are healed, chronic compression deformities with severe levoscoliosis of the thoracic and lumbar spine, advanced degenerative changes in the left shoulder negative COVID/RSV/Influ on admission Saturating well on room air Recheck CXR tomorrow (7) Severe malnutrition: Plan: - BMI of 13.8, will add boost supplementation with meals - Speech therapy consulted for issues with swallowing- diet advanced (8) Hypothyroidism: Plan: -Patient reported noncompliance with her medications with thyroid -TSH is 68.49 on admission Restarted Levothyroxine Will recheck levels tomorrow Needs repeat thyroid test in 3-4 weeks Prior provider discussed with Dr. Lopez- [facility] (9) Bipolar disorder: Plan: -Continue Lamictal 25 mg twice daily (10) Neuropathy: Plan: -Chronic + flare up Trial of Gabapentin 100mg BID:not effective per patient Tylenol, Tramadol: Ineffective per patient Avoiding NSAIDs due to KECIA, solitary kidney Avoiding narcotics for possible adverse effect given patient's age Appreciate pain management service: recommend Keppra 250mg BID DVT px heparin SQ CODE STATUS: DNR/DNI Dispo: [facility] PT/OT recommend return to [facility] when medically stable Admission and Anticipated Discharge Date Admission Date: March 24, 2022 Subjective Patient is seen and examined at bedside Reports having multiple complaints Feels anxious and reports "Shoulder is warm" Also reports nauseous and having poor appetite Review of Systems Review of Systems: All systems reviewed & are unremarkable except as noted in Subjective Physical Exam Physical Exam: Physical Exam: Vitals signs as noted above General Appearance:Thin, Frail, no apparent distress Head: normocephalic, Atraumatic Eyes: normal inspection, EOMI Neck: supple, Trachea midline Respiratory/Chest: Normal breath sounds, CTA, No accessory muscle use Cardiovascular: S1, S2, No murmur Abdomen/GI:Soft, Non tender, Bowel sounds present Extremities/Musculoskeletal:normal inspection, no edema Neurologic/Psych:AAOX3, grossly no focal neurological deficits Skin: normal color, warm Results & Data Results & Data ([facility]) Vital Signs (Past 12 Hours) Vital Signs Temp Pulse Pulse Resp BP BP Pulse Ox 03/29/22 15:26 74 03/29/22 14:51 36.9 C 70 18 117/71 95 03/29/22 11:34 37.0 C 62 16 97/59 L 91 03/29/22 07:14 66 03/29/22 07:02 37.0 C 66 20 109/70 97 (1) COPD (chronic obstructive pulmonary disease) COPD type: unspecified COPD Qualified Code(s): J44.9 - Chronic obstructive pulmonary disease, unspecified
[2022-03-29] MEDS: ACETAMINOPHEN 325 MG TAB PO PRN (23:30)
[2022-03-30] MEDS: LEVOTHYROXINE SODIUM 88 MCG TABLET PO SCH (05:56)
[2022-03-30 06:39] LABS: BUN Creatinine Ratio 31.5 (10-20); Calcium 9.5 mg/dl (8.5-10.1); Creatinine Clr Calc Pharmacy 20.9 ml/min; Est GFR (African American) 45.5 ml/min; Est GFR (Non-African American) 39.3 ml/min; Potassium 4.3 mmol/L (3.5-5.1)
[2022-03-30] MEDS: ACETAMINOPHEN 325 MG TAB PO PRN ×2 (06:39→23:56)
[2022-03-30 07:20] LABS: Thyroid Stimulating Hormone 64.879 uIu/ml (0.300-4.500)
[2022-03-30 07:52] LABS: T4 Free Thyroxine 0.7 ng/dl (0.61-1.60)
[2022-03-30] MEDS ORDERED: ALBUT/IPRATROP 3MG/0.5MG NEB 3 ML VIAL NEB PRN (08:16)
--- NOTE | 2022-03-30 08:46 | XRay Report ---
XR chest 1V portable CLINICAL HISTORY: Shortness of breath. COMPARISON STUDY: Chest CT November 11, 2020. Chest radiograph March 24, 2022. FINDINGS: Left subclavian Odomco-o-Peyd is in place. Severe osteoarthritis of the left glenohumeral j oint is incidentally noted. There is no pneumothorax. Suspected trace left pleural effusion is noted. There is no consolidation to suggest pneumonia. No evidence for pulmonary edema. Cardiomediastinal s ilhouette is stable. IMPRESSION: Trace left pleural effusion. ACT 112: Negative or not required by law. Electronically signed by: Lamont Alcazar M.D. 03/30/2022 8:44 AM
[2022-03-30] MEDS: HEPARIN SOD 5,000 UNIT/0.5 ML VIAL SQ SCH ×2 (11:03→20:29)
[2022-03-30] MEDS: FAMOTIDINE 20 MG TAB PO SCH ×2 (11:41→20:29)
[2022-03-30] MEDS: NICOTINE 14 MG/24 HR PATCH TD SCH (11:41)
[2022-03-30] MEDS: CALCIUM 600MG + VIT D 400 IU TAB PO SCH ×2 (11:41→20:29)
[2022-03-30] MEDS: lamoTRIgine 25 MG TAB PO SCH ×2 (13:26→20:29)
[2022-03-30] MEDS: levETIRAcetam 250 MG TAB PO SCH (13:26)
--- NOTE | 2022-03-30 17:37 | Hospitalist Progress Note ---
Date of Service March 30, 2022 Assessment & Plan (1) Sinus tachycardia: (2) Acute kidney injury superimposed on CKD: (3) Dehydration: Plan: Acute Kidney Injury Cr1.7>>1.2 H/O Bladder cancer and renal cell carcinoma s/p left nephrectomy Sep 2011 Received IV fluids Monitor renal function (4) COPD (chronic obstructive pulmonary disease): (5) Tobacco abuse: (6) SOB (shortness of breath): Plan: Active smoker. Not interested to quit Encouraged cessation at bedside Nicotine patch 14 mcg as needed CXR was reviewed, no pulmonary edema, old left-sided rib fractures which are healed, chronic compression deformities with severe levoscoliosis of the thoracic and lumbar spine, advanced degenerative changes in the left shoulder negative COVID/RSV/Influ on admission Saturating well on room air CXR reviewed (7) Severe malnutrition: Plan: - BMI of 13.8, will add boost supplementation with meals - Speech therapy consulted for issues with swallowing- diet advanced (8) Hypothyroidism: Plan: -Patient reported noncompliance with her medications with thyroid -TSH is 68.49 on admission Restarted Levothyroxine Needs repeat thyroid test in 3-4 weeks Prior provider discussed with Dr. Lopez- [facility] (9) Bipolar disorder: Plan: -Continue Lamictal 25 mg twice daily Consulted Psychiatry (10) Neuropathy: Plan: -Chronic + flare up Trial of Gabapentin 100mg BID:not effective per patient Tylenol, Tramadol: Ineffective per patient Avoiding NSAIDs due to KECIA, solitary kidney Avoiding narcotics for possible adverse effect given patient's age Appreciate pain management service Will Discontinue Keppra 250mg BID--doesn't seem to be tolerating DVT px heparin SQ CODE STATUS: DNR/DNI Dispo: [facility] PT/OT recommend return to [facility] when medically stable Refuses to return to [facility] Case Management to help with discharge planning Admission and Anticipated Discharge Date Admission Date: March 24, 2022 Subjective Patient is seen and examined at bedside Has multiple complaints Very irritable and upset " There is something going on in my head" Refused discharge Review of Systems Review of Systems: All systems reviewed & are unremarkable except as noted in Subjective Physical Exam Physical Exam: Physical Exam: Vitals signs as noted above General Appearance:Thin, Frail, no apparent distress Head: normocephalic, Atraumatic Eyes: normal inspection, EOMI Neck: supple, Trachea midline Respiratory/Chest: Normal breath sounds, CTA, No accessory muscle use Cardiovascular: S1, S2, No murmur Abdomen/GI:Soft, Non tender, Bowel sounds present Extremities/Musculoskeletal:normal inspection, no edema Neurologic/Psych:AAOX3, grossly no focal neurological deficits Skin: normal color, warm Results & Data Results & Data ([facility]) Vital Signs (Past 12 Hours) Vital Signs Temp Pulse Pulse Resp BP BP Pulse Ox 03/30/22 14:00 36.2 C L 66 18 128/66 98 03/30/22 11:00 37.0 C 71 18 107/66 96 03/30/22 09:03 64 18 99 03/30/22 08:00 74 03/30/22 06:47 36.6 C 58 L 20 101/58 L 96 Laboratory Results [facility] 03/30/22 05:23 Sodium 138 Potassium 4.3 Chloride 105 Carbon Dioxide 27 BUN 40 H Creatinine 1.27 H Glucose 95 Calcium 9.5 (1) COPD (chronic obstructive pulmonary disease) COPD type: unspecified COPD Qualified Code(s): J44.9 - Chronic obstructive pulmonary disease, unspecified
[2022-03-31] MEDS: LEVOTHYROXINE SODIUM 88 MCG TABLET PO SCH (05:41)
[2022-03-31 08:04] LABS: BUN Creatinine Ratio 35.2 (10-20); Calcium 9.9 mg/dl (8.5-10.1); Creatinine Clr Calc Pharmacy 21.3 ml/min; Est GFR (African American) 46.4 ml/min; Potassium 4.4 mmol/L (3.5-5.1)
[2022-03-31] MEDS: FAMOTIDINE 20 MG TAB PO SCH (08:12)
[2022-03-31] MEDS: NICOTINE 14 MG/24 HR PATCH TD SCH (08:12)
[2022-03-31] MEDS: lamoTRIgine 25 MG TAB PO SCH (08:12)
[2022-03-31] MEDS: CALCIUM 600MG + VIT D 400 IU TAB PO SCH (08:12)
[2022-03-31] MEDS: HEPARIN SOD 5,000 UNIT/0.5 ML VIAL SQ SCH (08:13)
--- NOTE | 2022-03-31 10:59 | Psychiatric Consultation ---
Date of Consultation March 31, 2022 Impression / Recommendations Impression 81 yo woman with history of BPAD, on lamictal, CKD and chronic nerve pain admitted medically. Diagnostically consistent with MDD versus adjustment disorder with depressed mood in the context of neuropathic pain and recent non- adherence with levothyroxine resulting in hypothyroidism. Acute risk of self- harm is low given denial of current SI and future-oriented with reasons for living and no access to lethal means. Chronic risk is moderate given history of prior attempt and BPAD and chronic pain/chronic medication conditions. She is not interested in nor does she meet criteria for involuntary inpatient psychi atric hospitalization at this time. Discussed that she may benefit from medication adjustments to help with sleep and pain, discussed this with Dr. Cosme. (1) Adjustment disorder with depressed mood: -Psychiatrically stable for discharge -Consider trial of mirtazapine 7.5 mg qhs for sleep and mood -For pain could consider trial of gabapentin again or Cymbalta (would use low dose, need to watch for potential darrius but on lamictal which offers some protection for mood stabilization) Risk Factors Assessment Do You Have Access To A Gun?: No Psych History Identifying Data 81 yo woman with a history of BPAD, CKD, hypothyroidism, neuropathy, COPD, GERD admitted medically for dizziness, weakness and SOB. Psychiatry was consulted after she was refusing to discharge to her personal [facility] and stating concerns about something being wrong "with my mind". Chief Complaint "If I'm falling over I'll make a fool of myself". History of Present Illness Ayse is lying in bed this morning and fully oriented. She reiterates her concerns about returning to [facility] as she thinks she is unsteady on her feet and worries she may fall which would be "embarrassing" and that then she would be kicked out of [facility]. Reassured her that this would not happen but she remained unconvinced thinking it was a possibility. She noted she does have some concerns about her mind and physically which she attributes to being back on thyroid medication and feeling the dose is too high because "it's 80 something mg". Reviewed that she is on a few low dose of thyroid medication which she did find reassuring. She expressed frustration with most residents of [facility] having significant memory/cognitive issues. She denies SI but states that she does have chronic nerve pain and that if it never gets better she would maybe jump off a roof. Reviewed this and she denies any current SI nor intent nor plan but rather that "I can't live in pain like this forever, if it never gets better I would want to then". Currently she is willing to try other medications and options to help with sleep and pain. She expresses symptoms of depression in the context of pain with PHQ-9 score of 9 and 0 for Q9. She identifies reasons for living including her son and her desire to feel better from the pain. Past Psychiatric History Current Psychiatric Diagnosis: BPAD Outpatient Services: none currently, previously saw psychiatrist Previous Psych Admissions: [facility] 2016 Do You Have Access To A Gun?: No History of Previous Suicide Attempt: Yes (October 2021 states she took extra Venlafaxine due to SI ) Past Medication Trials: Venlafaxine Allergies Allergy/AdvReac Type Severity Reaction Status Date / Time Penicillins Allergy Mild RASH Verified 03/24/22 10:17 albuterol [From ProAir HFA] AdvReac Intermediate Dizziness Verified 03/24/22 10:17 Home Medications Medication Instructions Recorded Confirmed Type calcium carbonate 600 mg-vitamin 1 tab PO BID 11/20/18 03/24/22 History D3 20 mcg (800 unit) chewable tablet (Caltrate 600 plus D) lamotrigine 25 mg tablet (Lamictal) 25 mg PO BID 08/12/20 03/24/22 History acetaminophen 500 mg tablet 1,000 mg PO Q6H PRN 08/26/20 03/24/22 History (Tylenol Extra Strength) levothyroxine 88 mcg tablet 88 mcg PO QAM 12/09/20 03/24/22 History (Synthroid) famotidine 20 mg tablet 20 mg PO BID #20 tab 03/17/22 03/24/22 Rx albuterol 90 mcg/actuation aerosol 90 mcg INHALATION Q6H PRN 03/30/22 03/30/22 History inhaler mirtazapine 15 mg tablet 7.5 mg PO HS #15 tab 03/31/22 Rx Personal History Living Arrangements: Personal Care Facility Employment Status: Retired Number Of Children: 1 Beliefs That Will Affect Care: None Patient History Medical History (Updated 03/31/22 @ 15:29 by Sharon Gould MD) Altered mental status Bipolar disorder Bladder cancer CKD (chronic kidney disease), stage IV CKD (chronic kidney disease), stage IV COPD (chronic obstructive pulmonary disease) COPD (chronic obstructive pulmonary disease) Dizziness History of kidney cancer Hypothyroidism Intractable pain Malignant tumor of kidney Malignant tumor of urinary bladder Neuropathy Osteoarthritis S/p nephrectomy Tobacco abuse Tobacco abuse Urothelial cancer (~2010) UTI (urinary tract infection) Surgical History H/O dilation and curettage H/O: hysterectomy History of partial hysterectomy Hx of total knee arthroplasty S/p nephrectomy "Left" Family History Aunt Heart disease [place] in her 50s Mother Breast cancer Father Prostate cancer Social History Smoking Status: Current every day smoker Tobacco Type: Cigarettes Years Smoked: 20; Cigarettes Per Day: 5; Second Hand Exposure: No; Do You Dip or Chew Tobacco: No; Tobacco Cessation Education Requested by Patient: No Hx Alcohol Use: No Hx Substance Use: No Preferred Language: Japanese Communication Ability: Effective Visual Impairment: No Limitations Hearing Ability: Normal Manager Customs Required: No Beliefs That Will Affect Care: None marital status: / Current Living Situation: Alone How many Children do You have: 1 Other Information That Helps Us Care for You: No Feels Safe at Home: Yes Safety Concerns: Feels Safe At This Time Assistive Devices: Walker Physical Exam 2 Psychiatric: Orientation: alert and oriented x 3 Apperance: appropriately dressed and appropriately groomed Eye Contact: good eye contact Motor Behavior: no abnormal motor movements Speech: normal rate/rhythm/volume of speech Affect: euthymic affect Mood: + depressed mood Thought Process: goal directed thought process and + looseness of associations Thought Content: reality based without delusions Suicidal Thoughts: denies suicidal thoughts Homicidal Thoughts: denies homicidal thoughts Hallucinations: no auditory hallucinations and no visual hallucinations Cognition: recent memory grossly intact, remote memory grossly intact, attention grossly intact and language grossly intact Estimated Intelligence: consistent with education level Insight: + fair insight Judgement: + fair judgement Vital Signs (Past 24 Hours): Last Vital Signs Temp 36.3 C L 03/31/22 07:30 Pulse 85 03/31/22 07:30 Resp 20 03/31/22 07:30 BP 147/77 H 03/31/22 07:30 Pulse Ox 97 03/31/22 07:30 Review of Systems All systems reviewed & are unremarkable except as noted in HPI & below Results & Data (PSY) Medications Administered Acetaminophen (Acetaminophen 325 Mg Tab) 650 mg PO Q4H PRN PRN Reason: Moderate Pain Stop: 04/23/22 14:47 Last Admin: 03/30/22 23:56 Dose: 650 mg Documented by: [id number] Admin: 03/30/22 06:39 Dose: 650 mg Documented by: [id number] Admin: 03/29/22 23:30 Dose: 650 mg Documented by: [id number] Admin: 03/28/22 23:07 Dose: 650 mg Documented by: [id number] Admin: 03/27/22 21:24 Dose: 650 mg Documented by: [id number] Admin: 03/27/22 02:17 Dose: 650 mg Documented by: [id number] Admin: 03/26/22 19:07 Dose: 650 mg Documented by: [id number] Admin: 03/26/22 09:13 Dose: 650 mg Documented by: [id number] Admin: 03/25/22 20:01 Dose: 650 mg Documented by: [id number] Admin: 03/25/22 05:53 Dose: 650 mg Documented by: [id number] Admin: 03/24/22 20:33 Dose: 650 mg Documented by: [id number] Albuterol (Albut/Ipratrop 3mg/0.5mg Neb 3 Ml Vial) 3 ml NEB Q4R PRN; Protocol PRN Reason: Shortness Of Breath Or Wheezing Stop: 04/29/22 10:59 Last Admin: 03/30/22 09:03 Dose: 3 ml Documented by: [id number] Diphenhydramine HCl (Diphenhydramine Capsule 25 Mg Cap) 25 mg PO HS PRN PRN Reason: Insomnia Stop: 04/26/22 18:53 Last Admin: 03/27/22 21:24 Dose: 25 mg Documented by: [id number] Famotidine (Famotidine 20 Mg Tab) 20 mg PO BID EDUARDO Stop: 04/23/22 20:59 Last Admin: 03/31/22 08:12 Dose: 20 mg Documented by: [id number] Admin: 03/30/22 20:29 Dose: 20 mg Documented by: [id number] Admin: 03/30/22 11:41 Dose: Not Given Documented by: [id number] Admin: 03/29/22 20:50 Dose: 20 mg Documented by: [id number] Admin: 03/29/22 08:34 Dose: 20 mg Documented by: [id number] Admin: 03/28/22 21:24 Dose: 20 mg Documented by: [id number] Admin: 03/28/22 09:53 Dose: Not Given Documented by: [id number] Admin: 03/27/22 20:03 Dose: 20 mg Documented by: [id number] Admin: 03/27/22 09:13 Dose: Not Given Documented by: [id number] Admin: 03/26/22 20:29 Dose: 20 mg Documented by: [id number] Admin: 03/26/22 09:11 Dose: 20 mg Documented by: [id number] Admin: 03/25/22 19:54 Dose: 20 mg Documented by: [id number] Admin: 03/25/22 09:39 Dose: 20 mg Documented by: [id number] Admin: 03/24/22 20:31 Dose: 20 mg Documented by: [id number] Heparin Sodium (Porcine) (Heparin Sod 5,000 Unit/0.5 Ml Vial) 5,000 units SQ Q12 EDUARDO Stop: 04/23/22 20:59 Last Admin: 03/31/22 08:13 Dose: 5,000 units Documented by: [id number] Admin: 03/30/22 20:29 Dose: 5,000 units Documented by: [id number] Admin: 03/30/22 11:03 Dose: Not Given Documented by: [id number] Admin: 03/29/22 20:50 Dose: 5,000 units Documented by: [id number] Admin: 03/29/22 08:34 Dose: 5,000 units Documented by: [id number] Admin: 03/28/22 21:24 Dose: 5,000 units Documented by: [id number] Admin: 03/28/22 09:54 Dose: Not Given Documented by: [id number] Admin: 03/27/22 20:03 Dose: 5,000 units Documented by: [id number] Admin: 03/27/22 09:14 Dose: Not Given Documented by: [id number] Admin: 03/26/22 20:32 Dose: 5,000 units Documented by: [id number] Admin: 03/26/22 10:24 Dose: 5,000 units Documented by: [id number] Admin: 03/25/22 20:07 Dose: 5,000 units Documented by: [id number] Admin: 03/25/22 09:40 Dose: Not Given Documented by: [id number] Admin: 03/24/22 20:32 Dose: 5,000 units Documented by: [id number] Lamotrigine (Lamotrigine 25 Mg Tab) 25 mg PO BID EDUARDO Stop: 04/23/22 20:59 Last Admin: 03/31/22 08:12 Dose: 25 mg Documented by: [id number] Admin: 03/30/22 20:29 Dose: 25 mg Documented by: [id number] Admin: 03/30/22 13:26 Dose: Not Given Documented by: [id number] Admin: 03/29/22 20:50 Dose: 25 mg Documented by: [id number] Admin: 03/29/22 08:36 Dose: 25 mg Documented by: [id number] Admin: 03/28/22 21:24 Dose: 25 mg Documented by: [id number] Admin: 03/28/22 09:54 Dose: Not Given Documented by: [id number] Admin: 03/27/22 20:03 Dose: 25 mg Documented by: [id number] Admin: 03/27/22 09:14 Dose: Not Given Documented by: [id number] Admin: 03/26/22 20:30 Dose: 25 mg Documented by: [id number] Admin: 03/26/22 09:11 Dose: 25 mg Documented by: [id number] Admin: 03/25/22 19:55 Dose: 25 mg Documented by: [id number] Admin: 03/25/22 09:40 Dose: 25 mg Documented by: [id number] Admin: 03/24/22 20:33 Dose: 25 mg Documented by: [id number] Levothyroxine Sodium (Levothyroxine Sodium 88 Mcg Tablet) 88 mcg PO DAILYBB EDUARDO Stop: 04/26/22 06:29 Last Admin: 03/31/22 05:41 Dose: Not Given Documented by: [id number] Admin: 03/30/22 05:56 Dose: 88 mcg Documented by: [id number] Admin: 03/29/22 05:32 Dose: 88 mcg Documented by: [id number] Admin: 03/28/22 05:53 Dose: Not Given Documented by: [id number] Admin: 03/27/22 05:40 Dose: 88 mcg Documented by: [id number] Miscellaneous (Remove Nicoderm Patch) 1 ea N/A [id number] [facility] Stop: 04/24/22 08:58 Last Admin: 03/31/22 08:15 Dose: Not Given Documented by: [id number] Admin: 03/30/22 11:41 Dose: Not Given Documented by: [id number] Admin: 03/29/22 10:37 Dose: Not Given Documented by: [id number] Admin: 03/28/22 09:53 Dose: Not Given Documented by: [id number] Admin: 03/27/22 09:09 Dose: Not Given Documented by: [id number] Admin: 03/26/22 10:24 Dose: 1 ea Documented by: [id number] Admin: 03/25/22 09:39 Dose: Not Given Documented by: [id number] Multivitamins/Minerals (Calcium 600mg + Vit D 400 Iu Tab) 1 tab PO BID [facility] Stop: 04/23/22 20:59 Last Admin: 03/31/22 08:12 Dose: 1 tab Documented by: [id number] Admin: 03/30/22 20:29 Dose: 1 tab Documented by: [id number] Admin: 03/30/22 11:41 Dose: Not Given Documented by: [id number] Admin: 03/29/22 20:50 Dose: 1 tab Documented by: [id number] Admin: 03/29/22 08:34 Dose: 1 tab Documented by: [id number] Admin: 03/28/22 21:24 Dose: 1 tab Documented by: [id number] Admin: 03/28/22 09:53 Dose: Not Given Documented by: [id number] Admin: 03/27/22 20:03 Dose: 1 tab Documented by: [id number] Admin: 03/27/22 09:13 Dose: Not Given Documented by: [id number] Admin: 03/26/22 20:28 Dose: 1 tab Documented by: [id number] Admin: 03/26/22 09:11 Dose: 1 tab Documented by: [id number] Admin: 03/25/22 19:54 Dose: 1 tab Documented by: [id number] Admin: 03/25/22 09:39 Dose: 1 tab Documented by: [id number] Admin: 03/24/22 20:31 Dose: 1 tab Documented by: [id number] Nicotine (Nicotine 14 Mg/24 Hr Patch) 14 mg TD QAM [facility] Stop: 04/23/22 14:47 Last Admin: 03/31/22 08:12 Dose: Not Given Documented by: [id number] Admin: 03/30/22 11:41 Dose: Not Given Documented by: [id number] Admin: 03/29/22 10:37 Dose: Not Given Documented by: [id number] Admin: 03/28/22 09:54 Dose: Not Given Documented by: [id number] Admin: 03/27/22 09:14 Dose: Not Given Documented by: [id number] Admin: 03/26/22 10:24 Dose: Not Given Documented by: [id number] Admin: 03/25/22 20:03 Dose: 14 mg Documented by: [id number] Admin: 03/25/22 09:40 Dose: Not Given Documented by: [id number] Admin: 03/24/22 15:49 Dose: Not Given Documented by: [id number] Coding Level of Care Code 72814 Inpt Consult Level 3 Diagnoses Adjustment disorder with depressed mood F43.21
--- NOTE | 2022-03-31 12:47 | Hospitalist Progress Note ---
Date of Service March 31, 2022 Assessment & Plan (1) Sinus tachycardia: (2) Acute kidney injury superimposed on CKD: (3) Dehydration: Plan: Acute Kidney Injury Cr1.7>>1.2 H/O Bladder cancer and renal cell carcinoma s/p left nephrectomy Sep 2011 Received IV fluids Monitor renal function Resolved (4) COPD (chronic obstructive pulmonary disease): (5) Tobacco abuse: (6) SOB (shortness of breath): Plan: Active smoker Not interested to quit Encouraged cessation at bedside Nicotine patch 14 mcg as needed CXR was reviewed, no pulmonary edema, old left-sided rib fractures which are healed, chronic compression deformities with severe levoscoliosis of the thoracic and lumbar spine, advanced degenerative changes in the left shoulder Negative COVID/RSV/Influ on admission Saturating well on room air Denies any dyspnea currently (7) Severe malnutrition: Plan: - BMI of 13.8, will add boost supplementation with meals - Speech therapy consulted for issues with swallowing- diet advanced (8) Hypothyroidism: Plan: -Patient reported noncompliance with her medications with thyroid -TSH is 68.49 on admission Restarted Levothyroxine 88 mcg daily Needs repeat thyroid test in 3-4 weeks Prior provider discussed with Dr. Lopez- [facility] Endocrinology (9) Bipolar disorder: Plan: -Continue Lamictal 25 mg twice daily Appreciate Psychiatry Input Trial of Mirtazapine to help with Insomnia Needs follow up with Psychiatry as outpatient (10) Neuropathy: Plan: -Chronic + flare up Trial of Gabapentin 100mg BID:not effective per patient Tylenol, Tramadol: Ineffective per patient Avoiding NSAIDs due to KECIA, solitary kidney Avoiding narcotics for possible adverse effect given patient's age Appreciate pain management service Will Discontinue Keppra 250mg BID--doesn't seem to be tolerating DVT px heparin SQ CODE STATUS: DNR/DNI Dispo: [facility] PT/OT recommend return to [facility] when medically stable Admission and Anticipated Discharge Date Admission Date: March 24, 2022 Subjective Patient is seen and examined at bedside Discussed with Psychiatry today Patient reports poor sleep Reports chronic generalized pain No other complaints today Review of Systems Review of Systems: All systems reviewed & are unremarkable except as noted in Subjective Physical Exam Physical Exam: Physical Exam: Vitals signs as noted above General Appearance:Thin, Frail, no apparent distress Head: normocephalic, Atraumatic Eyes: normal inspection, EOMI Neck: supple, Trachea midline Respiratory/Chest: Normal breath sounds, CTA, No accessory muscle use Cardiovascular: S1, S2, No murmur Abdomen/GI:Soft, Non tender, Bowel sounds present Extremities/Musculoskeletal:normal inspection, no edema Neurologic/Psych:AAOX3, grossly no focal neurological deficits Skin: normal color, warm Results & Data Results & Data ([facility]) Vital Signs (Past 12 Hours) Vital Signs Temp Pulse Pulse Resp BP Pulse Ox 03/31/22 07:30 36.3 C L 85 20 147/77 H 97 03/31/22 06:15 69 Laboratory Results [facility] 03/31/22 06:45 Sodium 138 Potassium 4.4 Chloride 105 Carbon Dioxide 25 BUN 44 H Creatinine 1.25 H Glucose 92 Calcium 9.9 (1) COPD (chronic obstructive pulmonary disease) COPD type: unspecified COPD Qualified Code(s): J44.9 - Chronic obstructive pulmonary disease, unspecified
--- NOTE | 2022-03-31 13:00 | Discharge Summary ---
Date of Service March 31, 2022 Admission HPI Per Admitting Provider This is an 81 yo F from [facility] with PMHx of bipolar on lamictal, CKD stage III, Sinus tachycardia, hypercalcemia, hypothyroidism, neuropathy, COPD, chronic tobacco use, GERD, syncope, chronic pain disorder, severe malnutrition with BMI of 13.8, hx of Renal cell carcinoma s/p nephrectomy 10 years ago. Presents today with complaints of increased dizziness and weakness, chest pain "all over" and shortness of breath which worsened in the past 2 days. She has been eating and drinking ok, but doesn't like the food at the facility she's in. She tells me that she had difficult with swallowing dry foods and chokes on things often, and has not to her knowledge had a speech evaluation in the past. Pt denies any abdominal complaints, nausea, vomiting or diarrhea. She admits to taking her thyroid medication noncompliantly, states "on and off". The last time she took it was Sunday or Sunday. She reports taking her Lamictal as directed. Her son is present with her at bedside and supports the history. Admission Exam Per Admitting Provider Mildly cachectic, NAD HEENT: no enlargement of the tongue or thyroid gland Card: Normal S1/S2 with possible systolic murmur Lungs: CTA, no wheezing or crackles Abd: Soft, ND, NT MSK: no edema Psych: AAOx3 Principal Diagnosis Chronic Pain Acute Kidney Injury COPD Discharge Data Allergies Allergy/AdvReac Type Severity Reaction Status Date / Time Penicillins Allergy Mild RASH Verified 03/24/22 10:17 albuterol [From ProAir HFA] AdvReac Intermediate Dizziness Verified 03/24/22 10:17 Consultations 03/24/22 11:54 ED Decision to Admit Stat 03/27/22 11:59 Consult Pain Management Routine 03/30/22 12:14 Consult Psychiatry Routine Ordered Studies 03/27/22 11:57 CT head/brain wo con Stat Hospital Course (1) Sinus tachycardia: (2) Acute kidney injury superimposed on CKD: (3) Dehydration: Acute Kidney Injury Cr1.7>>1.2 H/O Bladder cancer and renal cell carcinoma s/p left nephrectomy Sep 2011 Received IV fluids Monitor renal function Resolved (4) COPD (chronic obstructive pulmonary disease): (5) Tobacco abuse: (6) SOB (shortness of breath): Active smoker Not interested to quit Encouraged cessation at bedside Nicotine patch 14 mcg as needed CXR was reviewed, no pulmonary edema, old left-sided rib fractures which are healed, chronic compression deformities with severe levoscoliosis of the thoracic and lumbar spine, advanced degenerative changes in the left shoulder Negative COVID/RSV/Influ on admission Saturating well on room air Denies any dyspnea currently (7) Severe malnutrition: - BMI of 13.8, will add boost supplementation with meals - Speech therapy consulted for issues with swallowing- diet advanced (8) Hypothyroidism: -Patient reported noncompliance with her medications with thyroid -TSH is 68.49 on admission Restarted Levothyroxine 88 mcg daily Needs repeat thyroid test in 3-4 weeks Prior provider discussed with Dr. Lopez- [facility] Endocrinology (9) Bipolar disorder: -Continue Lamictal 25 mg twice daily Appreciate Psychiatry Input Trial of Mirtazapine 7.5mg HS to help with Insomnia Needs follow up with Psychiatry as outpatient Can try gabapentin or Cymbalta with caution as outpatient as recommended by psychiatry (would use low dose, need to watch for potential darrius but on lamictal which offers some protection for mood stabilization) (10) Neuropathy: -Chronic + flare up Trial of Gabapentin 100mg BID:not effective per patient Tylenol, Tramadol: Ineffective per patient Avoiding NSAIDs due to KECIA, solitary kidney Avoiding narcotics for possible adverse effect given patient's age Appreciate pain management service Will Discontinue Keppra 250mg BID--doesn't seem to be tolerating DVT px heparin SQ CODE STATUS: DNR/DNI Dispo: [facility] PT/OT recommend return to [facility] when medically stable Total Time Total Time Spent Total Time Spent (In Minutes): 44 minutes Discharge Plan Discharge Items Patient Disposition: Personal Long-Term Reason For Visit: SOB,TACHYCARDIA Discharge Diagnosis: Chronic Pain Acute Kidney Injury COPD Activity: Per Instructions section Exercise/Sports: Gradually increase as tolerated Non-emergency contact: Primary Care Provider and Psychiatrist Call non-emergency contact if: you have any medication questions, your symptoms worsen and you have a fever Follow-up/Referrals: [facility] LUCIAN[facility] [Primary Care Provider] - Diet: Regular Diet Texture: Easy to Chew Addtl Attending Provider Instructions: Follow up with your Primary Care Physician in 1 week Follow up with your Psychiatrist in 2-4 weeks Seek immediate medical attention if your symptoms reoccur or worsen Please take all medications as instructed on discharge list below. Please call if you have any questions or problems. You can reach a [facility] hospitalist on duty at [facility] 24 hours a day by calling [phone] Pending Studies at Discharge: No Stand-Alone Forms: My [facility], Smoking Cessation Skilled Items Patient informed of condition?: Yes DNR: Yes Discharge Level of Care: Other Communicable Disease: No Discharge Prognosis: Stable Lines: None Urinary Catheter: No Medications and DC Order Prescriptions: New mirtazapine 15 mg Tablet 7.5 mg PO HS Qty: 15 RF: 0 Continued Caltrate 600 plus D 600 mg (1,500 mg)-800 unit Tablet,Chewable 1 tab PO BID RF: 0 lamotrigine [Lamictal] 25 mg tablet 25 mg PO BID RF: 0 levothyroxine [Synthroid] 88 mcg tablet 88 mcg PO QAM RF: 0 acetaminophen [Tylenol Extra Strength] 500 mg Tablet 1,000 mg PO Q6H PRN (Reason: Pain) RF: 0 famotidine 20 mg tablet 20 mg PO BID Qty: 20 RF: 0 albuterol 90 mcg/actuation Aerosol 90 mcg INHALATION Q6H PRN (Reason: Shortness Of Breath Or Wheezing) RF: 0 Discharge Orders: Discharge Order (Routine); Ordered 03/31/22 Ordered By: Jame Cosme Admission Data Admit Date/Time: 03/24/22 12:09 Attending Provider: Jame Cosme Admit Provider: Isaias Wolfe Primary Care Provider: [facility] Other Providers: Isaias Wolfe ; Aries Riddle ; Shayy Dye ; Les Gray ; Dorys Lawrence ; Sharon Gould ; Erlinda Mcclellan ; Vivian Young
[2022-03-31] MEDS ORDERED: MIRTAZAPINE TAB 15 MG TAB PO SCH (21:00)
== END 2022-03-31 13:30 | disposition home or self-care (01) | DRG 640 ==
LOC: ED 09:31 → SUATTDRO 12:09 → EDINP 12:09 → 2N 14:49

== ENCOUNTER 2022-07-01 22:28 | Observation (INO) ==
[2022-07-01] MEDS ORDERED: KETOROLAC TROMETHAMINE 15 MG/ML VIAL IV ONE (23:28)
[2022-07-01] MEDS ORDERED: ACETAMINOPHEN 1000 MG/100 ML IV IV STA (23:28)
[2022-07-01] MEDS ORDERED: ONDANSETRON INJ 2 MG/ML 2 ML VIAL IV STA (23:28)
[2022-07-01] MEDS ORDERED: SODIUM CHLORIDE 0.9% 500 ML IV SCH (23:30)
--- NOTE | 2022-07-01 23:33 | Emergency Department Note ---
Impression & Plan SOB (shortness of breath), Flu-like symptoms, Headache, Weakness, Anemia ED Provider Note NAME: ANNA LUA AGE: 82 SEX: F : 1940 ARRIVES VIA: Ambulance INFORMANT: [Patient] ED PROVIDER(S): [Gregory Dutton MD] CHIEF COMPLAINT: Illness HISTORY OF PRESENT ILLNESS: Patient is an 82-year-old female who has had 3 days of symptoms. She has had a headache that is moderate in severity. She has had body aches, some stiffness to her body and neck, a mild cough, some shortness of breath and some chills and fever. She had some diarrhea yesterday, not today. No vomiting. The patient was exposed to COVID recently, her son visited and he did test positive for COVID afterwards. She was sent for evaluation. REVIEW OF SYSTEMS: See HPI for pertinent positives and negatives. A total of ten systems were reviewed and were otherwise negative. PMHx/PSHx: See Below SOCIAL HISTORY: See Below. PHYSICAL EXAM: GENERAL: Patient is in no acute distress. Thin and frail. HEENT: No acute trauma, normocephalic atraumatic, mucous membranes moist, no nasal congestion, no scleral icterus. NECK: No stridor, no adenopathy, no meningismus, trachea is midline. LUNGS: Diminished breath sounds with some scattered wheezes and crackles, no respiratory distress, breath sounds are equal. HEART: Without murmurs gallops or rubs, regular rate and rhythm. ABDOMEN: Soft, nontender, bowel sounds positive, no peritonitis. EXTREMITIES: No cyanosis or edema, full range of motion of all the joints without pain or difficulty, no signs for acute trauma. NEUROLOGIC: Oriented x 3, no acute motor or sensory deficits, no focal weakness. SKIN: No rash, no jaundice, no diaphoresis. Rectal: Brown stool, heme-negative. DIFFERENTIAL DIAGNOSIS: Infection, dehydration, UTI, COVID-19, metabolic abnormality, hypo/hyperglycemia, electrolyte disturbance, anemia, hypoxia, cardiac sources, intracerebral event, as well as other pathologies. EMERGENCY DEPARTMENT COURSE/PROCEDURES: ECG: Indication was shortness of breath. The ECG shows a normal sinus rhythm with a rate of 74. There is some baseline artifact. There is no ST elevation, no PVCs. The QTc is 401. Continuous Cardiac Monitoring: An order was placed for continuous cardiac monitoring. The monitor shows a rate of 76 with normal sinus rhythm. Critical Care Note: I have personally spent 41 minutes of critical care time in the direct management of this patient. This includes bedside care, interpretat ion of diagnostic studies, and testing, discussion with consultants, patient, and family members, and other required patient management activities. This 41 minutes is in excess of all separately billable procedures. MEDICAL DECISION MAKING: There is no leukocytosis. The patient is anemic. Her hemoglobin value is lower than recent testing. I did perform a rectal exam, stool was brown and heme negative. There was a normal platelet count. Some mild renal insufficiency was noted, this is consistent with her past history. No significant electrolyte abnormality in need of emergent correction. Lactic acid level was not elevated making severe sepsis less likely. No worrisome liver enzyme elevation. ECG showed a normal sinus rhythm. Cardiac enzyme testing x1 was not consistent with acute cardiac injury. TSH was elevated however, the T4 was normal. Urinalysis did not show infection. COVID, influenza and RSV test returned negative. Chest x-ray showed a potential left base infiltrate, there was no pneumothorax. COPD was noted. On exam, the patient did have some crackles and wheezes bilaterally. She did not appear in significant distress. She had complaints consistent with pneumonia or potentially a flulike illness. Patient was given IV saline, 1 L. She received IV Toradol, IV ceftriaxone and IV Tylenol. She received IV Zofran. I reassessed the patient. She was still complaining of a headache and admitted that she does fall fairly frequently. She admits that she has struck her head from time to time. A head CT was ordered to rule out any type of acute intracranial bleeding/trauma. Because of my concerns for potential pneumonia, a CT of the chest was ordered. The patient is currently comfortable and stable. Dr. Altman has assumed care at the change of shift. She will follow-up on the CT images and determine the patient's final disposition plan. Patient could potentially require hospital stay. I spoke with the patient's son over the phone. I updated him on her care and our progress in the ED. Past Med/Surg History Medical History Altered mental status Bipolar disorder Bladder cancer CKD (chronic kidney disease), stage IV CKD (chronic kidney disease), stage IV COPD (chronic obstructive pulmonary disease) COPD (chronic obstructive pulmonary disease) Dizziness History of kidney cancer Hypothyroidism Intractable pain Malignant tumor of kidney Malignant tumor of urinary bladder Neuropathy Osteoarthritis S/p nephrectomy Tobacco abuse Tobacco abuse Urothelial cancer (~2010) UTI (urinary tract infection) Surgical History H/O dilation and curettage H/O: hysterectomy History of partial hysterectomy Hx of total knee arthroplasty S/p nephrectomy "Left" Family History Aunt Heart disease PR in her 50s Mother Breast cancer Father Prostate cancer Social History Smoking Status: Current every day smoker Tobacco Type: Cigarettes Years Smoked: 20; Cigarettes Per Day: 5; Second Hand Exposure: No; Hx Alcohol Use: No Hx Substance Use: No Preferred Language: Spanish Communication Ability: Effective Visual Impairment: No Limitations Hearing Ability: Normal [employer] Required: No Beliefs That Will Affect Care: None marital status: / Current Living Situation: Alone How many Children do You have: 1 Feels Safe at Home: Yes Assistive Devices: Walker Allergies Allergies Allergy/AdvReac Type Severity Reaction Status Date / Time Penicillins Allergy Mild RASH Verified 07/02/22 00:31 albuterol [From ProAir HFA] AdvReac Intermediate Dizziness Verified 07/02/22 00:31 Home Meds Home Medications Medication Instructions Recorded Confirmed calcium carbonate 600 mg-vitamin 1 tab PO BID 11/20/18 07/02/22 D3 20 mcg (800 unit) chewable tablet (Caltrate 600 plus D) lamotrigine 25 mg tablet (Lamictal) 25 mg PO BID 08/12/20 07/02/22 acetaminophen 500 mg tablet 500 mg PO Q6H PRN Pain 08/26/20 07/02/22 (Tylenol Extra Strength) levothyroxine 88 mcg tablet 88 mcg PO QAM 12/09/20 07/02/22 (Synthroid) Cyanacobalamin 1,000 mcg QAM 07/02/22 07/02/22 albuterol sulfate 90 mcg/actuation 1 puff inhalation QID PRN 07/02/22 07/02/22 aerosol inhaler Shortness Of Breath aripiprazole 2 mg QAM 07/02/22 07/02/22 lorazepam 0.5 mg tablet 0.5 mg PO TID PRN Anxiety 07/02/22 07/02/22 melatonin 3 mg HS 07/02/22 07/02/22 neomycin 1.75 mg-polymyxin 10,000 1 drp ophthalmic (eye) DIRECTED 07/02/22 07/02/22 unit-gramicidin 0.025mg/mL eye drops Previous Rx's Medication Instructions Recorded mirtazapine 15 mg tablet 7.5 mg PO HS #15 tabs 03/31/22 Results & Data (ED) Vital Signs Vital Signs - 24 hr 07/01/22 22:40 07/01/22 23:00 07/01/22 23:50 Temperature 36.9 C Temperature Source Temporal Artery Scan Pulse Rate 75 76 72 Pulse Rate [Finger] Pulse Rate from SpO2 Sensor Pulse Rhythm [Finger] Pulse Strength [Finger] Respiratory Rate 18 23 24 Respiratory Effort / Characteristics Non-Labored Spontaneous Respiratory Depth Respiratory Pattern Blood Pressure 124/75 125/82 Blood Pressure [Left Arm] Blood Pressure Mean 91 96 Blood Pressure Mean [Left Arm] Blood Pressure Position [Left Arm] Pulse Oximetry 97 95 Oxygen Delivery Method Room Air Room Air Sepsis Recent Fever Within 48 Hours No Sepsis New/Unexplained Change in Mental Status No Sepsis Action Taken by Nursing No Action Required 07/02/22 00:16 07/02/22 00:15 07/02/22 00:15 Temperature Temperature Source Pulse Rate 72 75 Pulse Rate [Finger] Pulse Rate from SpO2 Sensor 75 Pulse Rhythm [Finger] Pulse Strength [Finger] Respiratory Rate 22 Respiratory Effort / Characteristics Respiratory Depth Respiratory Pattern Blood Pressure 134/97 134/97 Blood Pressure [Left Arm] Blood Pressure Mean 109 109 Blood Pressure Mean [Left Arm] Blood Pressure Position [Left Arm] Pulse Oximetry 98 99 Oxygen Delivery Method Room Air Room Air Sepsis Recent Fever Within 48 Hours Sepsis New/Unexplained Change in Mental Status Sepsis Action Taken by Nursing 07/02/22 00:31 07/02/22 01:00 07/02/22 02:01 Temperature Temperature Source Pulse Rate 71 74 85 Pulse Rate [Finger] Pulse Rate from SpO2 Sensor 72 75 83 Pulse Rhythm [Finger] Pulse Strength [Finger] Respiratory Rate 19 20 23 Respiratory Effort / Characteristics Respiratory Depth Respiratory Pattern Blood Pressure 152/92 H 132/71 158/98 H Blood Pressure [Left Arm] Blood Pressure Mean 112 91 118 Blood Pressure Mean [Left Arm] Blood Pressure Position [Left Arm] Pulse Oximetry 100 97 97 Oxygen Delivery Method Room Air Room Air Room Air Sepsis Recent Fever Within 48 Hours Sepsis New/Unexplained Change in Mental Status Sepsis Action Taken by Nursing 07/02/22 03:25 07/02/22 05:00 07/02/22 06:00 Temperature Temperature Source Pulse Rate Pulse Rate [Finger] 98 H 87 74 Pulse Rate from SpO2 Sensor Pulse Rhythm [Finger] Pulse Strength [Finger] Respiratory Rate 20 18 18 Respiratory Effort / Characteristics Non-Labored Spontaneous Non-Labored Spontaneous Non-Labored Spontaneous Respiratory Depth Normal Normal Respiratory Pattern Blood Pressure Blood Pressure [Left Arm] 152/90 H 126/71 122/65 Blood Pressure Mean Blood Pressure Mean [Left Arm] 110 89 84 Blood Pressure Position [Left Arm] Pulse Oximetry 94 96 96 Oxygen Delivery Method Room Air Room Air Room Air Sepsis Recent Fever Within 48 Hours Sepsis New/Unexplained Change in Mental Status Sepsis Action Taken by Nursing 07/02/22 07:00 07/02/22 09:00 07/02/22 11:00 Temperature Temperature Source Pulse Rate Pulse Rate [Finger] 75 74 73 Pulse Rate from SpO2 Sensor Pulse Rhythm [Finger] Regular Regular Regular Pulse Strength [Finger] Normal Normal Normal Respiratory Rate 19 18 19 Respiratory Effort / Characteristics Non-Labored Non-Labored Non-Labored Respiratory Depth Normal Normal Normal Respiratory Pattern Regular Blood Pressure Blood Pressure [Left Arm] 120/67 142/69 H 137/75 Blood Pressure Mean Blood Pressure Mean [Left Arm] 84 93 95 Blood Pressure Position [Left Arm] Lying Lying Lying Pulse Oximetry 93 93 92 Oxygen Delivery Method Room Air Room Air Room Air Sepsis Recent Fever Within 48 Hours Sepsis New/Unexplained Change in Mental Status Sepsis Action Taken by Nursing 07/02/22 13:00 Temperature Temperature Source Pulse Rate Pulse Rate [Finger] 75 Pulse Rate from SpO2 Sensor Pulse Rhythm [Finger] Pulse Strength [Finger] Respiratory Rate 18 Respiratory Effort / Characteristics Non-Labored Respiratory Depth Normal Respiratory Pattern Blood Pressure Blood Pressure [Left Arm] 153/75 H Blood Pressure Mean Blood Pressure Mean [Left Arm] 101 Blood Pressure Position [Left Arm] Lying Pulse Oximetry 93 Oxygen Delivery Method Room Air Sepsis Recent Fever Within 48 Hours Sepsis New/Unexplained Change in Mental Status Sepsis Action Taken by Correction Medications Current Medication List: was personally reviewed by me Laboratory Data Attestation: I reviewed the patient's lab results. Result diagrams: 07/02/22 00:10 07/02/22 00:10 Lab Results 07/01/22 07/02/22 07/02/22 Range/Units 23:48 00:10 00:10 WBC 6.30 (4.8-10.8) K/ul RBC 3.66 L (3.93-5.22) M/uL Hgb 10.8 L (12.0-16.0) g/dl Hct 35.3 (34.1-44.9) % MCV 96.4 (80.0-100.0) fL MCH 29.5 (25.0-34.0) pg MCHC 30.6 L (32.0-36.0) g/dL RDW Std Deviation 46.6 H (36.4-46.3) fL RDW Coeff of Margarito 13.1 (11.5-14.5) % Plt Count 300 (130-400) K/uL MPV 9.2 L (9.4-12.3) fL Immature Gran % (Auto) 0.3 % Neut % (Auto) 67.0 % Lymph % (Auto) 21.0 % [place] % (Auto) 9.0 % Eos % (Auto) 2.1 % Baso % (Auto) 0.6 % Neut # (Auto) 4.22 (1.4-6.5) K/uL Lymph # (Auto) 1.32 (1.2-3.4) K/uL [place] # (Auto) 0.57 (0.24-0.82) K/uL Eos # (Auto) 0.13 (0-0.50) K/uL Baso # (Auto) 0.04 (0-0.2) K/uL Immature Gran # (Auto) 0.02 (0.00-0.02) K/uL Sodium 142 (136-145) mmol/L Potassium 4.3 (3.5-5.1) mmol/L Chloride 108 H (98-107) mmol/L Carbon Dioxide 26 (21-32) mmol/L Anion Gap 8 (3-11) BUN 46 H (6-23) mg/dl Creatinine 1.39 H (0.6-1.2) mg/dl Est Cr Clr Drug Dosing 21.8 ml/min Est GFR ( Amer) 40.5 ml/min Est GFR (Non-Af Amer) 35.0 ml/min BUN/Creatinine Ratio 33.1 H (10-20) Glucose 82 (70-99(Fasting)) mg/dl Lactate (0.4-2.0) mmol/L Calcium 9.3 (8.5-10.1) mg/dl Total Bilirubin 0.2 (0.2-1.0) mg/dl AST 13 (13-39) U/L ALT 9 (7-52) U/L Alkaline Phosphatase 159 H (34-104) U/L Troponin I High Sens 6.5 (0-14) pg/ml Total Protein 7.2 (6.0-8.3) gm/dl Albumin 3.9 (3.4-5.0) gm/dl Globulin 3.3 (2.5-4.0) gm/dl Albumin/Globulin Ratio 1.2 (0.9-2) TSH (0.300-4.500) uIu/ml Free T4 (0.61-1.60) ng/dl Urine Color Urine Appearance (Clear) Urine pH (4.5-7.5) Ur Specific [place] (1.000-1.030) Urine Protein (Negative) Urine Glucose (UA) (Negative) Urine Ketones (Negative) Urine Blood (Negative) Urine Nitrite (Negative) Urine Bilirubin (Negative) Urine Urobilinogen (Negative) Ur Leukocyte Esterase (Negative) SARS-CoV-2 (PCR) NEGATIVE (Negative) Influenza Type A (PCR) Negative (Neg) Influenza Type B (PCR) Negative (Neg) RSV (RT-PCR) Negative (Neg) 07/02/22 07/02/22 07/02/22 Range/Units 00:10 00:10 02:18 WBC (4.8-10.8) K/ul RBC (3.93-5.22) M/uL Hgb (12.0-16.0) g/dl Hct (34.1-44.9) % MCV (80.0-100.0) fL MCH (25.0-34.0) pg MCHC (32.0-36.0) g/dL RDW Std Deviation (36.4-46.3) fL RDW Coeff of Margarito (11.5-14.5) % Plt Count (130-400) K/uL MPV (9.4-12.3) fL Immature Gran % (Auto) % Neut % (Auto) % Lymph % (Auto) % [place] % (Auto) % Eos % (Auto) % Baso % (Auto) % Neut # (Auto) (1.4-6.5) K/uL Lymph # (Auto) (1.2-3.4) K/uL [place] # (Auto) (0.24-0.82) K/uL Eos # (Auto) (0-0.50) K/uL Baso # (Auto) (0-0.2) K/uL Immature Gran # (Auto) (0.00-0.02) K/uL Sodium (136-145) mmol/L Potassium (3.5-5.1) mmol/L Chloride (98-107) mmol/L Carbon Dioxide (21-32) mmol/L Anion Gap (3-11) BUN (6-23) mg/dl Creatinine (0.6-1.2) mg/dl Est Cr Clr Drug Dosing ml/min Est GFR ( Amer) ml/min Est GFR (Non-Af Amer) ml/min BUN/Creatinine Ratio (10-20) Glucose (70-99(Fasting)) mg/dl Lactate 0.5 (0.4-2.0) mmol/L Calcium (8.5-10.1) mg/dl Total Bilirubin (0.2-1.0) mg/dl AST (13-39) U/L ALT (7-52) U/L Alkaline Phosphatase (34-104) U/L Troponin I High Sens (0-14) pg/ml Total Protein (6.0-8.3) gm/dl Albumin (3.4-5.0) gm/dl Globulin (2.5-4.0) gm/dl Albumin/Globulin Ratio (0.9-2) TSH 4.793 H (0.300-4.500) uIu/ml Free T4 1.01 (0.61-1.60) ng/dl Urine Color Yellow Urine Appearance Clear (Clear) Urine pH 7.0 (4.5-7.5) Ur Specific [place] 1.017 (1.000-1.030) Urine Protein Negative (Negative) Urine Glucose (UA) Negative (Negative) Urine Ketones Negative (Negative) Urine Blood Negative (Negative) Urine Nitrite Negative (Negative) Urine Bilirubin Negative (Negative) Urine Urobilinogen Negative (Negative) Ur Leukocyte Esterase Negative (Negative) SARS-CoV-2 (PCR) (Negative) Influenza Type A (PCR) (Neg) Influenza Type B (PCR) (Neg) RSV (RT-PCR) (Neg) Administered Medications Discontinued Medications Acetaminophen (Acetaminophen 1000 Mg/100 Ml Iv) 1,000 mg IV NOW STA Stop: 07/01/22 23:29 Last Admin: 07/02/22 00:07 Dose: 1,000 mg Documented By: JOSE Sodium Chloride (Nss) 500 mls @ 999 mls/hr IV .Q31M EDUARDO Stop: 07/02/22 00:00 Last Infusion: 07/02/22 00:43 Dose: 0 mls/hr Documented By: Admin: 07/02/22 00:04 Dose: 999 mls/hr Documented By: JOSE Ceftriaxone Sodium (Rocephin) 2,000 mg in 70 mls @ 140 mls/hr IV NOW STA Stop: 07/02/22 03:20 Last Infusion: 07/02/22 04:52 Dose: 0 mls/hr Documented By: Admin: 07/02/22 04:19 Dose: 140 mls/hr Documented By: JOSE Sodium Chloride (Nss 1000ml) 500 mls @ 999 mls/hr IV .Q31M ONE Stop: 07/02/22 03:28 Last Infusion: 07/02/22 04:53 Dose: 0 mls/hr Documented By: Admin: 07/02/22 04:20 Dose: 999 mls/hr Documented By: JOSE Ketorolac Tromethamine (Ketorolac Tromethamine 15 Mg/Ml Vial) 10 mg IV NOW ONE Stop: 07/01/22 23:29 Last Admin: 07/02/22 00:07 Dose: 10 mg Documented By: JOSE Methylprednisolone (Methylprednisolone 125 Mg/2 Ml Vial) 60 mg IV NOW STA Stop: 07/02/22 08:44 Last Admin: 07/02/22 09:19 Dose: Not Given Documented By: ALIYAH Ondansetron HCl (Ondansetron Inj 2 Mg/Ml 2 Ml Vial) 4 mg IV NOW STA Stop: 07/01/22 23:29 Last Admin: 07/02/22 00:07 Dose: 4 mg Documented By: JOSE Prednisone (Prednisone 20 Mg Tab) 60 mg PO NOW STA Stop: 07/02/22 09:05 Last Admin: 07/02/22 09:12 Dose: 60 mg Documented By: ALIYAH Imaging Data Attestation: I personally reviewed and interpreted this imaging study as follows: My Impression: Chest x-ray: Per my review, there seems to be some potential increased congestion at the left base when compared to previous films, early pneumonia/atelectasis was suspected. Radiologist's Impression: Chest X-Ray 07/01/22 23:28 XR chest 1V portable HISTORY: 82 years-old Female weakness acute weakness COMPARISON: Chest CT 07/02/2022 TECHNIQUE: AP view of the chest FINDINGS: Cardiac silhouette is mildly enlarged. Mild right hemidiaphragmatic elevation. Emphysema without pneumothorax, pleural effusion, airspace consolidation or overt pulmonary edema. Left subclavian Deqzes-x-Iodp catheter. Degenerative changes of the shoulders and spine. IMPRESSION: Emphysema without acute process. ACT 112: Negative or not required by law. The above report was generated using voice recognition software. It may contain grammatical, syntax or spelling errors. Electronically signed by: Gilmar Royal M.D. 07/02/2022 9:[address] 07/02/22 02:[address] DOSE: 921.40 mGy.cm HISTORY: fall, headache TECHNIQUE: Multiaxial CT images of the head were performed without the use of intravenous contrast. Automated exposure control was utilized for this study. A dose lowering technique was utilized adhering to the principles of ALARA. Comparison: Head CT 05/16/2022. Findings: The paranasal sinuses and mastoid air cells are clear. The calvarium and skull base are intact. There is no mass, hematoma, midline shift, acute infarct. White matter hypodensity is nonspecific but suggestive of microvascular ischemic change. The ventricles and sulci demonstrate mild age-related involutional changes. Impression: No acute intracranial abnormality. Atrophy and microvascular ischemic changes. ACT 112: Negative or not required by law. Electronically signed by: David Dickerson M.D. 07/02/2022 7:[address] 07/02/22 02:58 CT chest diagnostic wo con CT DOSE: 210.00 mGy.cm CLINICAL HISTORY: 82 years-old Female with fever, copd, poss pneumonia. Acute fever with pneumonia TECHNIQUE: Multiaxial CT images of the chest were performed without contrast. A dose lowering technique was utilized adhering to the principles of ALARA. COMPARISON: Chest radiograph 07/01/2022, chest CT 08/12/2020 FINDINGS: No thyroid nodule. There are a few borderline enlarged mediastinal lymph nodes measuring up to 10 mm in short axis which appear stable. Left subclavian Lrjnin-m-Kizi catheter distal tip terminates within the brachiocephalic SVC confluence. The heart is upper limits of normal in size with trace pericardial effusion. Extensive coronary artery calcifications. Atherosclerosis of the thoracic aorta without aneurysm. Mild pulmonary emphysema with hyperinflation. Bronchial wall thickening with mild bibasilar predominant mucus plugging. Subsegmental bibasilar groundglass densities suggest atelectasis. Mild intralobular septal thickening. 4 mm subpleural solid nodule of the right middle lobe on stable and likely benign. 6 mm solid nodule of the left upper lobe on image 78 previously measured 4 mm. 4 mm nodular opacity of the left upper lobe on image 93 is unchanged. Mild tracheobronchial secretions. There are subtle centrilobular/tree-in-bud nodules of the right upper lobes. Unchanged 5 mm density of the right middle lobe on image 169. Postoperative changes of the abdominal left upper quadrant. Mild nonspecific distal esophageal wall thickening with small hiatal hernia. Unremarkable soft tissues. Periapical cystic changes of the mandibular teeth with cortical dehiscence. Subacute to chronic nondisplaced fracture of the anterior right fifth rib, new from prior. Chronic compression deformities are unchanged. Dextroscoliosis of the upper to midthoracic spine. IMPRESSION: 1. Emphysema with bronchial wall thickening suggestive of bronchitis. Mild associated mucous plugging. 2. There are a few unchanged subcentimeter bilateral pulmonary nodules. A solid 6 mm solid nodule of the left upper lobe has mildly increased in size from 08/12/2020. A one-year follow-up chest CT is recommended. 3. Subtle upper lobe predominant centrilobular/tree-in-bud nodules are likely infectious or inflammatory. 4. Chronic thoracic compression deformities. ACT 112: Negative or not required by law. Electronically signed by: Gilmar Royal M.D. 07/02/2022 7:53 AM Discharge Plan Visit Data Chief Complaint: Illness ED Provider: Gregory Dutton Patient Disposition: Still a Patient Condition: Fair Prescriptions Prescriptions: No Action Caltrate 600 plus D 600 mg (1,500 mg)-800 unit Tablet,Chewable 1 tab PO BID lamotrigine [Lamictal] 25 mg tablet 25 mg PO BID levothyroxine [Synthroid] 88 mcg tablet 88 mcg PO QAM acetaminophen [Tylenol Extra Strength] 500 mg Tablet 500 mg PO Q6H PRN (Reason: Pain) mirtazapine 15 mg Tablet 7.5 mg PO HS Qty: 15 0RF lorazepam 0.5 mg tablet 0.5 mg PO TID PRN (Reason: Anxiety) albuterol sulfate 90 mcg/actuation Hfa Aerosol Inhaler 1 puff INHALATION QID PRN (Reason: Shortness Of Breath) vlnizecd-[id number] 1.75 mg-10,000 unit-0.025mg/mL drops 1 drp ophthalmic (eye) DIRECTED Rx Instructions: right eye Cyanacobalamin 1,000 mcg 1,000 mcg QAM aripiprazole 2 mg 2 mg QAM melatonin 3 mg 3 mg HS
[2022-07-02 00:29] LABS: Basophils # (auto) 0.04 K/uL (0-0.2); Basophils % (auto) 0.6 %; Eosinophils # (auto) 0.13 K/uL (0-0.50); Eosinophils % (auto) 2.1 %; Hematocrit (blood only) 35.3 % (34.1-44.9); Hemoglobin 10.8 g/dl (12.0-16.0); Immature Granulocytes # (auto) 0.02 K/uL (0.00-0.02); Immature Granulocytes % (auto) 0.3 %; Lymphocytes # (auto) 1.32 K/uL (1.2-3.4); Mean Corpuscular Hemoglobin 29.5 pg (25.0-34.0); Mean Corpuscular Hgb Conc 30.6 g/dL (32.0-36.0); Mean Corpuscular Volume 96.4 fL (80.0-100.0); Mean Platelet Volume 9.2 fL (9.4-12.3); Monocytes # (auto) 0.57 K/uL (0.24-0.82); Neutrophils # (auto) 4.22 K/uL (1.4-6.5); Platelet Count 300 K/uL (130-400); RDW Coefficient of Variation 13.1 % (11.5-14.5); RDW Standard Deviation 46.6 fL (36.4-46.3); Red Blood Count 3.66 M/uL (3.93-5.22)
[2022-07-02 00:46] LABS: Influenza A virus by PCR Negative (Neg); Influenza B virus by PCR Negative (Neg); RSV by PCR Negative (Neg); SARS CoV2 RNA(COVID-19) InHosp NEGATIVE (Negative)
[2022-07-02 00:49] LABS: Albumin Globulin Ratio 1.2 (0.9-2); Albumin Level 3.9 gm/dl (3.4-5.0); BUN Creatinine Ratio 33.1 (10-20); Bilirubin,Total 0.2 mg/dl (0.2-1.0); Calcium 9.3 mg/dl (8.5-10.1); Creatinine Clr Calc Pharmacy 21.8 ml/min; Est GFR (African American) 40.5 ml/min; Globulin 3.3 gm/dl (2.5-4.0); Potassium 4.3 mmol/L (3.5-5.1); Total Protein 7.2 gm/dl (6.0-8.3)
[2022-07-02 00:56] LABS: Troponin I High Sensitivity 6.5 pg/ml (0-14)
[2022-07-02 01:05] LABS: Thyroid Stimulating Hormone 4.793 uIu/ml (0.300-4.500)
[2022-07-02 01:42] LABS: T4 Free Thyroxine 1.01 ng/dl (0.61-1.60)
[2022-07-02 02:35] LABS: Appearance Urine Clear (Clear); Bilirubin Urine Negative (Negative); Blood Urine Negative (Negative); Color Urine Yellow; Glucose Urine UA Negative (Negative); Ketones Urine Negative (Negative); Leukocyte Esterase Urine Negative (Negative); Nitrite Urine Negative (Negative); Protein Urine Negative (Negative); Specific Gravity Urine 1.017 (1.000-1.030); Urobilinogen Urine Negative (Negative)
[2022-07-02] MEDS ORDERED: cefTRIAXone SODIUM 2,000 MG/70 ML BAG IV STA (02:51)
[2022-07-02] MEDS ORDERED: SODIUM CHLORIDE 0.9% 1000ML 500 ML IV ONE (02:58)
--- NOTE | 2022-07-02 07:10 | CT Scan Report ---
HEAD CT NONCONTRAST CT DOSE: 921.40 mGy.cm HISTORY: fall, headache TECHNIQUE: Multiaxial CT images of the head were performed without the use of intravenous contrast. A utomated exposure control was utilized for this study. A dose lowering technique was utilized adheri ng to the principles of ALARA. Comparison: Head CT 05/16/2022. Findings: The paranasal sinuses and mastoid air cells are clear. The calvarium and skull base are int act. There is no mass, hematoma, midline shift, acute infarct. White matter hypodensity is nonspecifi c but suggestive of microvascular ischemic change. The ventricles and sulci demonstrate mild age-rela zulema involutional changes. Impression: No acute intracranial abnormality. Atrophy and microvascular ischemic changes. ACT 112: Negative or not required by law. Electronically signed by: David Dickerson M.D. 07/02/2022 7:09 AM
--- NOTE | 2022-07-02 07:54 | CT Scan Report ---
CT chest diagnostic wo con CT DOSE: 210.00 mGy.cm CLINICAL HISTORY: 82 years-old Female with fever, copd, poss pneumonia. Acute fever with pneumonia TECHNIQUE: Multiaxial CT images of the chest were performed without contrast. A dose lowering techni que was utilized adhering to the principles of ALARA. COMPARISON: Chest radiograph 07/01/2022, chest CT 08/12/2020 FINDINGS: No thyroid nodule. There are a few borderline enlarged mediastinal lymph nodes measuring up to 10 mm in short axis which appear stable. Left subclavian Wrketm-b-Crev catheter distal tip terminates withi n the brachiocephalic SVC confluence. The heart is upper limits of normal in size with trace pericard ial effusion. Extensive coronary artery calcifications. Atherosclerosis of the thoracic aorta without aneurysm. Mild pulmonary emphysema with hyperinflation. Bronchial wall thickening with mild bibasilar predomina nt mucus plugging. Subsegmental bibasilar groundglass densities suggest atelectasis. Mild intralobula r septal thickening. 4 mm subpleural solid nodule of the right middle lobe on stable and likely benig n. 6 mm solid nodule of the left upper lobe on image 78 previously measured 4 mm. 4 mm nodular opacit y of the left upper lobe on image 93 is unchanged. Mild tracheobronchial secretions. There are subtle centrilobular/tree-in-bud nodules of the right upper lobes. Unchanged 5 mm density of the right midd le lobe on image 169. Postoperative changes of the abdominal left upper quadrant. Mild nonspecific distal esophageal wall t hickening with small hiatal hernia. Unremarkable soft tissues. Periapical cystic changes of the nick bular teeth with cortical dehiscence. Subacute to chronic nondisplaced fracture of the anterior right fifth rib, new from prior. Chronic compression deformities are unchanged. Dextroscoliosis of the upp er to midthoracic spine. IMPRESSION: 1. Emphysema with bronchial wall thickening suggestive of bronchitis. Mild associated mucous plugging . 2. There are a few unchanged subcentimeter bilateral pulmonary nodules. A solid 6 mm solid nodule of the left upper lobe has mildly increased in size from 08/12/2020. A one-year follow-up chest CT is rec ommended. 3. Subtle upper lobe predominant centrilobular/tree-in-bud nodules are likely infectious or inflammat ory. 4. Chronic thoracic compression deformities. ACT 112: Negative or not required by law. Electronically signed by: Gilmar Royal M.D. 07/02/2022 7:53 AM
[2022-07-02] MEDS ORDERED: DOXYCYCLINE HOME PACK 100 MG PO ONE (08:43)
[2022-07-02] MEDS ORDERED: methylPREDNISolone 125 MG/2 ML VIAL IV STA (08:43)
[2022-07-02] MEDS ORDERED: predniSONE 20 MG TAB PO STA (09:04)
--- NOTE | 2022-07-02 09:19 | Electrocardiogram Report ---
Test Reason : Blood Pressure : / mmHG Vent. Rate : 074 BPM Atrial Rate : 074 BPM P-R Int : 190 ms QRS Dur : 068 ms QT Int : 362 ms P-R-T Axes : 061 050 052 degrees QTc Int : 401 ms Poor data quality, interpretation may be adversely affected Normal sinus rhythm Normal ECG When compared with ECG of 16-MAY-2022 09:08, Premature ventricular complexes are no longer Present Criteria for Septal infarct are no longer Present Confirmed by Braxton Clark ([id number]) on 07/02/2022 9:19:42 AM Referred By: [facility] Confirmed By:Braxton Clark
--- NOTE | 2022-07-02 09:41 | XRay Report ---
XR chest 1V portable HISTORY: 82 years-old Female weakness acute weakness COMPARISON: Chest CT 07/02/2022 TECHNIQUE: AP view of the chest FINDINGS: Cardiac silhouette is mildly enlarged. Mild right hemidiaphragmatic elevation. Emphysema without pneu mothorax, pleural effusion, airspace consolidation or overt pulmonary edema. Left subclavian Infuse-a -Port catheter. Degenerative changes of the shoulders and spine. IMPRESSION: Emphysema without acute process. ACT 112: Negative or not required by law. The above report was generated using voice recognition software. It may contain grammatical, syntax o r spelling errors. Electronically signed by: Gilmar Royal M.D. 07/02/2022 9:40 AM
--- NOTE | 2022-07-02 10:20 | Emergency Department Note ---
ED Visit Note This is an 82-year-old female signed out to me at change of shift by Dr. Dutton. Patient awaiting CT head and CT chest at that time. Patient's labs reassuring, urine negative, COVID swab negative. Patient does have underlying COPD and does continue to smoke. Staff they are concerned about possible COVID given recent known sick contact. Please refer to Dr. Dutton's note for additional details. CT of the head reassuring, CT of the chest with evidence of emphysema and likely bronchitis, no evidence of occult pneumonia. This was discussed with patient at bedside. She had already been given antibiotics as a precaution. Steroids added. Patient was tolerating p.o. without difficulty. We did attempt an ambulatory trial patient unable to even stand independently due to weakness and dizziness. As patient comes from assisted living facility and cannot currently be accommodated in her state due to increased requirements for care, case sudhakar scussed with hospitalist for additional evaluation and management. .
--- NOTE | 2022-07-02 10:33 | History & Physical Report ---
Date of Service July 02, 2022 Assessment & Plan (1) Emphysema with both acute and chronic bronchitis: (2) CKD (chronic kidney disease) stage 4, GFR 15-29 ml/min: (3) Generalized weakness: (4) Bipolar disorder: (5) Tobacco abuse: Plan 82 year old female sent from [facility] for weakness and worsening cough, and found to have COPD with bronchitis. CT chest 1. Emphysema with bronchial wall thickening suggestive of bronchitis. Mild associated mucous plugging. 2. There are a few unchanged subcentimeter bilateral pulmonary nodules. A solid 6 mm solid nodule of the left upper lobe has mildly increased in size from 08/12/2020. A one-year follow-up chest CT is recommended. 3. Subtle upper lobe predominant centrilobular/tree-in-bud nodules are likely infectious or inflammatory. 4. Chronic thoracic compression deformities. COPD with bronchitis- COVID/flu negative. CT chest shows emphysema with bronchitis with some mucus plugging. Saturating >95% in room air, no wheezes on exam. She was given steroids and empiric antibiotics in ED. Will continue nebs, azithromycin, mucinex, flutter valve, incentive spirometry. No wheezing, chest clear- hold off on steroids for now. Sputum clx if able to send. Generalized weakness- Feels weak, dizzy and had a fall 5 days back. She is afraid to go back to [facility] in current situation. Orthostatic vitals, gentle ivf, tele. PT/OT eval. Might need rehab Tobacco abuse- smokes 3-4 cigarettes a day, declines nicoderm patch. recommended quitting CKD 4- Cr at baseline. Monitor Lung nodule- recommended [address] chest with PCP Profound hypothyroidism- TFTs improved from before. Continue synthroid. Bipolar disorder- continue lamictal and aripiprazole. DVT ppx- sc heparin Dispo- Observation on medsur tele History of Present Illness Chief Complaint: weakness, worsening cough Primary Care Provider: [facility] 82 year old female with h/o emphysema, tobacco abuse, CKD4, resident of [facility] who presented to the ED with generalized weakness and cough for the past 5 days. States started with headache and dizziness 5 days back- also had a fall 5 days back. Uses walker at baseline. Also has cough with intermittent white sputum. She came to the ED today for evaluation. Workup showed emphysema with bronchitis and was treated with steroids, antibiotics. Trial of ambulation done in ED but she was weak and unable to stand independently. Deemed unsafe for discharge back to [facility] and hospitalist service was consulted. Patient was seen and examined at bedside. She states she still feels weak, dizzy and scared to go back to [facility] as there is not much help there. She denies any fever, chills, N/V, chest pain, wheezing, shortness of breath. She states she has been eating and drinking adequately as she can. Still smokes about 3-4 cigarettes a day. Does not use inhalers. States she does not have access to alcohol at [facility]. Meds were discussed with her and independently verified with the staff at [facility] over the phone. Allergies Allergy/AdvReac Type Severity Reaction Status Date / Time Penicillins Allergy Mild RASH Verified 07/02/22 00:31 albuterol [From ProAir HFA] AdvReac Intermediate Dizziness Verified 07/02/22 00:31 Home Medications Medication Instructions Recorded Confirmed Type calcium carbonate 600 mg-vitamin 1 tab PO BID 11/20/18 07/02/22 History D3 20 mcg (800 unit) chewable tablet (Caltrate 600 plus D) lamotrigine 25 mg tablet (Lamictal) 25 mg PO BID 08/12/20 07/02/22 History acetaminophen 500 mg tablet 500 mg PO Q6H PRN Pain 08/26/20 07/02/22 History (Tylenol Extra Strength) levothyroxine 88 mcg tablet 88 mcg PO QAM 12/09/20 07/02/22 History (Synthroid) mirtazapine 15 mg tablet 7.5 mg PO HS #15 tabs 03/31/22 07/02/22 Rx Cyanacobalamin 1,000 mcg QAM 07/02/22 07/02/22 History albuterol sulfate 90 mcg/actuation 1 puff inhalation QID PRN 07/02/22 07/02/22 History aerosol inhaler Shortness Of Breath aripiprazole 2 mg QAM 07/02/22 07/02/22 History lorazepam 0.5 mg tablet 0.5 mg PO TID PRN Anxiety 07/02/22 07/02/22 History melatonin 3 mg HS 07/02/22 07/02/22 History neomycin 1.75 mg-polymyxin 10,000 1 drp ophthalmic (eye) DIRECTED 07/02/22 07/02/22 History unit-gramicidin 0.025mg/mL eye drops Past Med/Surg History Medical History (Updated 07/02/22 @ 11:40 by Mani Cannon MD) Altered mental status Bipolar disorder Bladder cancer CKD (chronic kidney disease), stage IV CKD (chronic kidney disease), stage IV COPD (chronic obstructive pulmonary disease) COPD (chronic obstructive pulmonary disease) Dizziness History of kidney cancer Hypothyroidism Intractable pain Malignant tumor of kidney Malignant tumor of urinary bladder Neuropathy Osteoarthritis S/p nephrectomy Tobacco abuse Tobacco abuse Urothelial cancer (~2010) UTI (urinary tract infection) Surgical History H/O dilation and curettage H/O: hysterectomy History of partial hysterectomy Hx of total knee arthroplasty S/p nephrectomy "Left" Family History Aunt Heart disease [place] in her 50s Mother Breast cancer Father Prostate cancer Social History Smoking Status: Current every day smoker Tobacco Type: Cigarettes Years Smoked: 20; Cigarettes Per Day: 5; Second Hand Exposure: No; Hx Alcohol Use: No Hx Substance Use: No Preferred Language: Setswana Communication Ability: Effective Visual Impairment: No Limitations Hearing Ability: Normal Lamination Builder Required: No Beliefs That Will Affect Care: None marital status: / Current Living Situation: Alone How many Children do You have: 1 Feels Safe at Home: Yes Assistive Devices: Walker Review of Systems Review of Systems: All systems reviewed & are unremarkable except as noted in Subjective Physical Exam Physical Exam: General: Frail elderly female, sitting comfortably in bed, not in distress, on room air HEENT: EOMI, MINERVA, MMM Chest: Fair breath sounds bilaterally, no wheezes or crackles CVS: Regular rate and rhythm, normal heart sounds, no murmur Abdomen: Soft, non tender, not distended, normal bowel sounds Neuro: Awake, alert, oriented, conversing well, non focal Extremities: No cyanosis, clubbing or edema Results & Data Results & Data ([facility]) Vital Signs (Past 12 Hours) Vital Signs Temp Pulse Pulse Resp BP BP Pulse Ox 07/02/22 09:00 74 18 142/69 H 93 07/02/22 07:00 75 19 120/67 93 07/02/22 06:00 74 18 122/65 96 07/02/22 05:00 87 18 126/71 96 07/02/22 03:25 98 H 20 152/90 H 94 07/02/22 02:01 85 23 158/98 H 97 07/02/22 01:00 74 20 132/71 97 07/02/22 00:31 71 19 152/92 H 100 07/02/22 00:15 75 22 134/97 99 07/02/22 00:15 134/97 07/02/22 00:16 72 98 07/01/22 23:50 72 24 125/82 95 07/01/22 23:00 76 23 07/01/22 22:40 36.9 C 75 18 124/75 97 O2 Del Method 07/02/22 09:00 Room Air 07/02/22 07:00 Room Air 07/02/22 06:00 Room Air 07/02/22 05:00 Room Air 07/02/22 03:25 Room Air 07/02/22 02:01 Room Air 07/02/22 01:00 Room Air 07/02/22 00:31 Room Air 07/02/22 00:15 Room Air 07/02/22 00:15 07/02/22 00:16 Room Air 07/01/22 23:50 Room Air 07/01/22 23:00 07/01/22 22:40 Room Air Laboratory Results Short CBC 07/02/22 Range/Units 00:10 WBC 6.30 (4.8-10.8) K/ul Hgb 10.8 L (12.0-16.0) g/dl Hct 35.3 (34.1-44.9) % Plt Count 300 (130-400) K/uL BMP 07/02/22 00:10 Sodium 142 Potassium 4.3 Chloride 108 H Carbon Dioxide 26 BUN 46 H Creatinine 1.39 H Glucose 82 Calcium 9.3 Liver Function 07/02/22 Range/Units 00:10 Total Bilirubin 0.2 (0.2-1.0) mg/dl AST 13 (13-39) U/L ALT 9 (7-52) U/L Alkaline Phosphatase 159 H (34-104) U/L Albumin 3.9 (3.4-5.0) gm/dl Urine 07/02/22 Range/Units 02:18 Urine Color Yellow Urine Appearance Clear (Clear) Urine pH 7.0 (4.5-7.5) Ur Specific [place] 1.017 (1.000-1.030) Urine Protein Negative (Negative) Urine Glucose (UA) Negative (Negative) Diagnostic Findings Chest X-Ray 07/01/22 23:28 XR chest 1V portable HISTORY: 82 years-old Female weakness acute weakness COMPARISON: Chest CT 07/02/2022 TECHNIQUE: AP view of the chest FINDINGS: Cardiac silhouette is mildly enlarged. Mild right hemidiaphragmatic elevation. Emphysema without pneumothorax, pleural effusion, airspace consolidation or overt pulmonary edema. Left subclavian Ifrtyc-d-Bwpj catheter. Degenerative changes of the shoulders and spine. IMPRESSION: Emphysema without acute process. ACT 112: Negative or not required by law. The above report was generated using voice recognition software. It may contain grammatical, syntax or spelling errors. Electronically signed by: Gilmar Royal M.D. 07/02/2022 9:[address] 07/02/22 02:[address] DOSE: 921.40 mGy.cm HISTORY: fall, headache TECHNIQUE: Multiaxial CT images of the head were performed without the use of intravenous contrast. Automated exposure control was utilized for this study. A dose lowering technique was utilized adhering to the principles of ALARA. Comparison: Head CT 05/16/2022. Findings: The paranasal sinuses and mastoid air cells are clear. The calvarium and skull base are intact. There is no mass, hematoma, midline shift, acute infarct. White matter hypodensity is nonspecific but suggestive of microvascular ischemic change. The ventricles and sulci demonstrate mild age-related involutional changes. Impression: No acute intracranial abnormality. Atrophy and microvascular ischemic changes. ACT 112: Negative or not required by law. Electronically signed by: David Dickerson M.D. 07/02/2022 7:[address] 07/02/22 02:58 CT chest diagnostic wo con CT DOSE: 210.00 mGy.cm CLINICAL HISTORY: 82 years-old Female with fever, copd, poss pneumonia. Acute fever with pneumonia TECHNIQUE: Multiaxial CT images of the chest were performed without contrast. A dose lowering technique was utilized adhering to the principles of ALARA. COMPARISON: Chest radiograph 07/01/2022, chest CT 08/12/2020 FINDINGS: No thyroid nodule. There are a few borderline enlarged mediastinal lymph nodes measuring up to 10 mm in short axis which appear stable. Left subclavian Otidvd-w-Dqxe catheter distal tip terminates within the brachiocephalic SVC confluence. The heart is upper limits of normal in size with trace pericardial effusion. Extensive coronary artery calcifications. Atherosclerosis of the thoracic aorta without aneurysm. Mild pulmonary emphysema with hyperinflation. Bronchial wall thickening with mild bibasilar predominant mucus plugging. Subsegmental bibasilar groundglass densities suggest atelectasis. Mild intralobular septal thickening. 4 mm subpleural solid nodule of the right middle lobe on stable and likely benign. 6 mm solid nodule of the left upper lobe on image 78 previously measured 4 mm. 4 mm nodular opacity of the left upper lobe on image 93 is unchanged. Mild tracheobronchial secretions. There are subtle centrilobular/tree-in-bud nodules of the right upper lobes. Unchanged 5 mm density of the right middle lobe on image 169. Postoperative changes of the abdominal left upper quadrant. Mild nonspecific distal esophageal wall thickening with small hiatal hernia. Unremarkable soft tissues. Periapical cystic changes of the mandibular teeth with cortical dehiscence. Subacute to chronic nondisplaced fracture of the anterior right fifth rib, new from prior. Chronic compression deformities are unchanged. Dextroscoliosis of the upper to midthoracic spine. IMPRESSION: 1. Emphysema with bronchial wall thickening suggestive of bronchitis. Mild associated mucous plugging. 2. There are a few unchanged subcentimeter bilateral pulmonary nodules. A solid 6 mm solid nodule of the left upper lobe has mildly increased in size from 08/12/2020. A one-year follow-up chest CT is recommended. 3. Subtle upper lobe predominant centrilobular/tree-in-bud nodules are likely infectious or inflammatory. 4. Chronic thoracic compression deformities. ACT 112: Negative or not required by law. Electronically signed by: Gilmar Royal M.D. 07/02/2022 7:53 AM
[2022-07-02] MEDS: LEVOTHYROXINE SODIUM 88 MCG TABLET PO SCH (14:56)
[2022-07-02] MEDS: ALBUT/IPRATROP 3MG/0.5MG NEB 3 ML VIAL NEB SCH ×2 (15:46→19:47)
[2022-07-02] MEDS: SODIUM CHLORIDE 0.9% 1000ML 1,000 ML IV SCH (15:47)
[2022-07-02] MEDS: AZITHROMYCIN 250 MG TAB PO SCH (15:47)
[2022-07-02] MEDS: NEOMYCIN/POLYMYXIN/GRAMICIDIN 10 ML BTL OPR SCH ×2 (15:57→21:40)
[2022-07-02] MEDS: lamoTRIgine 25 MG TAB PO SCH ×2 (15:57→21:38)
[2022-07-02] MEDS: guaiFENesin 600 MG TABCR PO SCH (21:38)
[2022-07-02] MEDS: MIRTAZAPINE TAB 15 MG TAB PO SCH (21:39)
[2022-07-02] MEDS: MELATONIN 3 MG TAB PO SCH (21:39)
[2022-07-02] MEDS: NICOTINE POLACRILEX 2 MG GUM MT PRN (22:43)
[2022-07-02] MEDS: ACETAMINOPHEN 325 MG TAB PO PRN (22:49)
[2022-07-03] MEDS: ACETAMINOPHEN 325 MG TAB PO PRN ×2 (04:58→22:55)
[2022-07-03] MEDS: LEVOTHYROXINE SODIUM 88 MCG TABLET PO SCH (05:33)
[2022-07-03] MEDS: ALBUT/IPRATROP 3MG/0.5MG NEB 3 ML VIAL NEB SCH ×2 (07:14→19:22)
[2022-07-03 08:29] LABS: Hematocrit (blood only) 34.7 % (34.1-44.9); Hemoglobin 10.9 g/dl (12.0-16.0); Mean Corpuscular Hemoglobin 29.9 pg (25.0-34.0); Mean Corpuscular Hgb Conc 31.4 g/dL (32.0-36.0); Mean Corpuscular Volume 95.3 fL (80.0-100.0); Mean Platelet Volume 9.4 fL (9.4-12.3); Platelet Count 296 K/uL (130-400); RDW Coefficient of Variation 12.9 % (11.5-14.5); RDW Standard Deviation 44.7 fL (36.4-46.3); Red Blood Count 3.64 M/uL (3.93-5.22); White Blood Count 5.29 K/ul (4.8-10.8)
[2022-07-03 08:58] LABS: BUN Creatinine Ratio 38.8 (10-20); Creatinine Clr Calc Pharmacy 29.5 ml/min; Est GFR (African American) 58.2 ml/min; Est GFR (Non-African American) 50.2 ml/min; Potassium 4.4 mmol/L (3.5-5.1)
[2022-07-03] MEDS: NEOMYCIN/POLYMYXIN/GRAMICIDIN 10 ML BTL OPR SCH ×3 (09:39→21:38)
[2022-07-03] MEDS: lamoTRIgine 25 MG TAB PO SCH ×2 (09:40→21:37)
[2022-07-03] MEDS: ARIPIprazole 1 MG/ML ORAL SOLN 150 ML BTL PO SCH (09:40)
[2022-07-03] MEDS: AZITHROMYCIN 250 MG TAB PO SCH (09:40)
[2022-07-03] MEDS: guaiFENesin 600 MG TABCR PO SCH ×2 (09:40→21:37)
[2022-07-03] MEDS: CYANOCOBALAMIN (B-12) 500 MCG TABLET PO SCH (09:40)
[2022-07-03] MEDS: SODIUM CHLORIDE 0.9% 1000ML 1,000 ML IV SCH (09:41)
[2022-07-03] MEDS ORDERED: ALUMINUM/MAGNESIUM SUSP 30 ML UDC PO PRN (10:16)
--- NOTE | 2022-07-03 16:25 | Hospitalist Progress Note ---
Date of Service July 03, 2022 Assessment & Plan (1) Emphysema with both acute and chronic bronchitis: (2) CKD (chronic kidney disease) stage 4, GFR 15-29 ml/min: (3) Generalized weakness: (4) Bipolar disorder: (5) Tobacco abuse: Plan 82 year old female with COPD sent from [facility] for weakness and worsening cough, and found to have bronchitis. CT chest 1. Emphysema with bronchial wall thickening suggestive of bronchitis. Mild associated mucous plugging. 2. There are a few unchanged subcentimeter bilateral pulmonary nodules. A solid 6 mm solid nodule of the left upper lobe has mildly increased in size from 08/12/2020. A one-year follow-up chest CT is recommended. 3. Subtle upper lobe predominant centrilobular/tree-in-bud nodules are likely infectious or inflammatory. 4. Chronic thoracic compression deformities. COPD with bronchitis COVID/flu negative. Patient reported she was visited by son the week before onset of symptoms and he had COVID She is currently in isolation as possible COVID PUI Symptoms likely due to viral illness, URI CT chest shows emphysema with bronchitis with some mucus plugging. Saturating >95% in room air, no wheezes on exam. She was given steroids and empiric antibiotics in ED. Continue nebs, azithromycin, mucinex, flutter valve, incentive spirometry. No wheezing or shortness of breath. Continue to hold steroid for now Generalized weakness- Feels weak, dizzy and had a fall 5 days back. Get PT/OT eval Tobacco abuse- Reported to Admitting Provider she smokes 3-4 cigarettes a day, but told me she quit about 3 weeks ago Counselled extensively regarding smoking cessation CKD 3- Stable Lung nodule- recommended [address] chest with PCP Profound hypothyroidism- TFTs improved from before. Continue synthroid. Bipolar disorder- continue lamictal and aripiprazole. DVT ppx- sc heparin Admission and Anticipated Discharge Date Admission Date: July 02, 2022 Subjective Patient seen and examined Reports headache, cough, myalgias, generalized weakness Denied nausea, vomiting, abd pain Reported some episodes of diarrhea a few days ago which has resolved Denied dysuria, freq, urgency Denied fever, chills Physical Exam Constitutional: + well hydrated and + thin; no acute distress Eyes: PERRL, conjunctivae normal, anicteric sclerae ENMT: external ear and nose normal, oropharynx normal Respiratory: normal respiratory effort; no respiratory distress Diminished breath sounds. No wheeze or crackles Cardiovascular: Rate/Rhythm: regular rate and regular rhythm S1 S2 Gastrointestinal (Abdomen): normal bowel sounds, soft, nontender, no hepatosplenomegaly Musculoskeletal: No pedal edema Neurologic: PERRL, EOMI, accommodation nl, no face palsy, no dysarthria Psychiatric: A+Ox3, euthymic affect Results & Data Results & Data ([facility]) Vital Signs (Past 12 Hours) Vital Signs Temp Pulse Pulse Resp BP BP Pulse Ox 07/03/22 15:41 72 07/03/22 15:33 36.9 C 72 18 149/72 H 97 07/03/22 11:43 36.8 C 73 18 144/74 H 96 07/03/22 10:17 07/03/22 07:27 56 L 07/03/22 07:14 78 18 98 07/03/22 07:00 36.8 C 79 20 175/97 H 97 O2 Del Method 07/03/22 15:41 07/03/22 15:33 Room Air 07/03/22 11:43 Room Air 07/03/22 10:17 Room Air 07/03/22 07:27 07/03/22 07:14 Room Air 07/03/22 07:00 Room Air Laboratory Results Abnormal lab results 07/03/22 07/03/22 Range/Units 07:25 07:25 RBC 3.64 L (3.93-5.22) M/uL Hgb 10.9 L (12.0-16.0) g/dl MCHC 31.4 L (32.0-36.0) g/dL Chloride 108 H (98-107) mmol/L BUN 40 H (6-23) mg/dl BUN/Creatinine Ratio 38.8 H (10-20)
[2022-07-03] MEDS: NICOTINE POLACRILEX 2 MG GUM MT PRN ×2 (18:16→21:39)
[2022-07-03] MEDS: MIRTAZAPINE TAB 15 MG TAB PO SCH (21:37)
[2022-07-03] MEDS: MELATONIN 3 MG TAB PO SCH (21:37)
[2022-07-04] MEDS: LEVOTHYROXINE SODIUM 88 MCG TABLET PO SCH (05:33)
[2022-07-04] MEDS: ALBUT/IPRATROP 3MG/0.5MG NEB 3 ML VIAL NEB SCH (07:18)
[2022-07-04 08:38] LABS: Hemoglobin 12.3 g/dl (12.0-16.0); Mean Corpuscular Hemoglobin 29.3 pg (25.0-34.0); Mean Corpuscular Hgb Conc 30.8 g/dL (32.0-36.0); Mean Corpuscular Volume 95.2 fL (80.0-100.0); Mean Platelet Volume 9.3 fL (9.4-12.3); Platelet Count 300 K/uL (130-400); RDW Coefficient of Variation 12.9 % (11.5-14.5); RDW Standard Deviation 45.1 fL (36.4-46.3); White Blood Count 5.79 K/ul (4.8-10.8)
[2022-07-04 08:55] LABS: BUN Creatinine Ratio 31.8 (10-20); Calcium 9.4 mg/dl (8.5-10.1); Creatinine Clr Calc Pharmacy 28.4 ml/min; Est GFR (African American) 55.6 ml/min; Potassium 4.5 mmol/L (3.5-5.1)
[2022-07-04] MEDS: lamoTRIgine 25 MG TAB PO SCH (09:50)
[2022-07-04] MEDS: ACETAMINOPHEN 325 MG TAB PO PRN (09:50)
[2022-07-04] MEDS: guaiFENesin 600 MG TABCR PO SCH (09:51)
[2022-07-04] MEDS: AZITHROMYCIN 250 MG TAB PO SCH (09:51)
[2022-07-04] MEDS: CYANOCOBALAMIN (B-12) 500 MCG TABLET PO SCH (09:51)
[2022-07-04] MEDS: NEOMYCIN/POLYMYXIN/GRAMICIDIN 10 ML BTL OPR SCH (09:52)
[2022-07-04] MEDS: ARIPIprazole 1 MG/ML ORAL SOLN 150 ML BTL PO SCH (10:35)
--- NOTE | 2022-07-04 12:37 | Discharge Summary ---
Date of Service July 04, 2022 Admission HPI Per Admitting Provider 82 year old female with h/o emphysema, tobacco abuse, CKD4, resident of [facility] who presented to the ED with generalized weakness and cough for the past 5 days. States started with headache and dizziness 5 days back- also had a fall 5 days back. Uses walker at baseline. Also has cough with intermittent white sputum. She came to the ED today for evaluation. Workup showed emphysema with bronchitis and was treated with steroids, antibiotics. Trial of ambulation done in ED but she was weak and unable to stand independently. Deemed unsafe for discharge back to [facility] and hospitalist service was consulted. Patient was seen and examined at bedside. She states she still feels weak, dizzy and scared to go back to [facility] as there is not much help there. She denies any fever, chills, N/V, chest pain, wheezing, shortness of breath. She states she has been eating and drinking adequately as she can. Still smokes about 3-4 cigarettes a day. Does not use inhalers. States she does not have access to alcohol at [facility]. Meds were discussed with her and independently verified with the staff at [facility] over the phone. Admission Exam Per Admitting Provider General: Frail elderly female, sitting comfortably in bed, not in distress, on room air HEENT: EOMI, MINERVA, MMM Chest: Fair breath sounds bilaterally, no wheezes or crackles CVS: Regular rate and rhythm, normal heart sounds, no murmur Abdomen: Soft, non tender, not distended, normal bowel sounds Neuro: Awake, alert, oriented, conversing well, non focal Extremities: No cyanosis, clubbing or edema Principal Diagnosis Acute bronchitis COPD Smoker Discharge Exam Constitutional + well hydrated and + thin; no acute distress Eyes PERRL, conjunctivae normal, anicteric sclerae ENMT external ear and nose normal, oropharynx normal Respiratory normal respiratory effort; no respiratory distress Diminished breath sounds, no wheeze or crackles Cardiovascular Rate/Rhythm: regular rate and regular rhythm S1 S2 Gastrointestinal (Abdomen) normal bowel sounds, soft, nontender, no hepatosplenomegaly Musculoskeletal no cyanosis or clubbing, extremities motor strength 5/5 Neurologic PERRL, EOMI, accommodation nl, no face palsy, no dysarthria Psychiatric A+Ox3, euthymic affect Discharge Data Allergies Allergy/AdvReac Type Severity Reaction Status Date / Time Penicillins Allergy Mild RASH Verified 07/02/22 00:31 albuterol [From ProAir HFA] AdvReac Intermediate Dizziness Verified 07/02/22 00:31 Consultations 07/02/22 10:25 ED Decision to Admit Stat Ordered Studies 07/02/22 02:17 CT head/brain wo con Urgent The paranasal sinuses and mastoid air cells are clear. The calvarium and skull base are intact. There is no mass, hematoma, midline shift, acute infarct. White matter hypodensity is nonspecific but suggestive of microvascular ischemic change. The ventricles and sulci demonstrate mild age-related involutional changes. Impression: No acute intracranial abnormality. Atrophy and microvascular ischemic changes. 07/02/22 02:58 CT chest diagnostic wo con Urgent No thyroid nodule. There are a few borderline enlarged mediastinal lymph nodes measuring up to 10 mm in short axis which appear stable. Left subclavian [id number] catheter distal tip terminates within the brachiocephalic SVC confluence. The heart is upper limits of normal in size with trace pericardial effusion. Extensive coronary artery calcifications. Atherosclerosis of the thoracic aorta without aneurysm. Mild pulmonary emphysema with hyperinflation. Bronchial wall thickening with mild bibasilar predominant mucus plugging. Subsegmental bibasilar groundglass densities suggest atelectasis. Mild intralobular septal thickening. 4 mm subpleural solid nodule of the right middle lobe on stable and likely benign. 6 mm solid nodule of the left upper lobe on image 78 previously measured 4 mm. 4 mm nodular opacity of the left upper lobe on image 93 is unchanged. Mild tracheobronchial secretions. There are subtle centrilobular/tree-in-bud nodules of the right upper lobes. Unchanged 5 mm density of the right middle lobe on image 169. Postoperative changes of the abdominal left upper quadrant. Mild nonspecific distal esophageal wall thickening with small hiatal hernia. Unremarkable soft tissues. Periapical cystic changes of the mandibular teeth with cortical dehiscence. Subacute to chronic nondisplaced fracture of the anterior right fifth rib, new from prior. Chronic compression deformities are unchanged. Dextroscoliosis of the upper to midthoracic spine. IMPRESSION: 1. Emphysema with bronchial wall thickening suggestive of bronchitis. Mild associated mucous plugging. 2. There are a few unchanged subcentimeter bilateral pulmonary nodules. A solid 6 mm solid nodule of the left upper lobe has mildly increased in size from 08/12/2020. A one-year follow-up chest CT is recommended. 3. Subtle upper lobe predominant centrilobular/tree-in-bud nodules are likely infectious or inflammatory. 4. Chronic thoracic compression deformities. Hospital Course (1) Emphysema with both acute and chronic bronchitis: (2) CKD (chronic kidney disease) stage 4, GFR 15-29 ml/min: (3) Generalized weakness: (4) Bipolar disorder: (5) Tobacco abuse: Plan 82 year old female with COPD sent from [facility] for weakness and worsening cough, and found to have bronchitis. COPD with bronchitis COVID/flu negative. Patient reported she was visited by son the week before onset of symptoms and he had COVID Hence possible COVID PUI Symptoms likely due to viral illness, URI CT chest shows emphysema with bronchitis with some mucus plugging. Saturating >95% in room air, no wheezes on exam. She was given steroids and empiric antibiotics in ED. Completed 3 days of azithromycin 500mg inpatient Patient can repeat COVID test in 5 days from test done on admission Generalized weakness- Feels weak, dizzy and had a fall 5 days back. Evaluated by PT/OT - recommend return to [facility] Tobacco abuse- Counselled extensively regarding smoking cessation CKD 3- Stable Lung nodule- recommended [address] chest with PCP Hypothyroidism- TFTs improved from before. TSH is 4.793 (improved from 176.49 on 05/16/22) Continue synthroid. Bipolar disorder- continue lamictal and aripiprazole. Total Time Total Time Spent Total Time Spent (In Minutes): 35 Total Time Includes: Examination of the Patient, Discharge Planning and Medication Reconciliation Discharge Plan Discharge Items Patient Disposition: Personal [facility] Reason For Visit: weakness, worsening cough Discharge Diagnosis: Bronchitis Condition on Discharge: Fair Activity: Resume your previous activity Non-emergency contact: Primary Care Provider Call non-emergency contact if: you have any medication questions Follow-up/Referrals: [facility] R[facility] LUCIANO [Primary Care Provider] - Diet: Heart Healthy Addtl Attending Provider Instructions: Mrs Hou You came to the hospital complaining of weakness and cough. You were treated for bronchitis and your cough is improved. You are being discharged back to the personal longterm. Please ensure follow up with your Primary Doctor. Please quit smoking cigarettes. Take your medications as prescribed. It was a pleasure taking care of you. Pending Studies at Discharge: No Stand-Alone Forms: [facility] [employer], Smoking Cessation Skilled Items Patient informed of condition?: Yes DNR: Yes Discharge Level of Care: Other Communicable Disease: No Discharge Prognosis: Stable Lines: None Urinary Catheter: No Medications and DC Order Prescriptions: Continued Caltrate 600 plus D 600 mg (1,500 mg)-800 unit Tablet,Chewable 1 tab PO BID lamotrigine [Lamictal] 25 mg tablet 25 mg PO BID levothyroxine [Synthroid] 88 mcg tablet 88 mcg PO QAM acetaminophen [Tylenol Extra Strength] 500 mg Tablet 500 mg PO Q6H PRN (Reason: Pain) mirtazapine 15 mg Tablet 7.5 mg PO HS Qty: 15 0RF lorazepam 0.5 mg tablet 0.5 mg PO TID PRN (Reason: Anxiety) albuterol sulfate 90 mcg/actuation Hfa Aerosol Inhaler 1 puff INHALATION QID PRN (Reason: Shortness Of Breath) [id number] 1.75 mg-10,000 unit-0.025mg/mL drops 1 drp ophthalmic (eye) DIRECTED Rx Instructions: right eye Cyanacobalamin 1,000 mcg 1,000 mcg QAM aripiprazole 2 mg 2 mg QAM melatonin 3 mg 3 mg HS Discharge Orders: Discharge Order (Routine); Ordered 07/04/22 Ordered By: Afshan Murry Admission Data Admit Date/Time: 07/03/22 16:28 Attending Provider: Afshan Murry I. Admit Provider: Mani Cannon Primary Care Provider: [facility]CIAN[facility] Other Providers: Mani Cannon Other Interventions: Discharge Summary Assessment (RN) Last Done: 07/04/22 12:40
== END 2022-07-04 13:20 | disposition home or self-care (01) ==
LOC: ED 22:28 → EDINP 22:28 → SUATTDRO 07-02 10:44 → 2W 07-02 13:37

== ENCOUNTER 2024-01-06 09:34 | Inpatient (IN) ==
[2024-01-06 11:09] LABS: Basophils # (auto) 0.02 K/uL (0.00-0.20); Basophils % (auto) 0.4 %; Eosinophils # (auto) 0.08 K/uL (0.00-0.50); Eosinophils % (auto) 1.7 %; Hemoglobin 12.1 g/dl (12.0-16.0); Immature Granulocytes # (auto) 0.02 K/uL (0.01-0.20); Immature Granulocytes % (auto) 0.4 %; Lymphocytes # (auto) 0.89 K/uL (1.20-3.40); Lymphocytes % (auto) 18.5 %; Mean Corpuscular Hemoglobin 28.7 pg (25.0-34.0); Mean Corpuscular Volume 92.6 fL (80.0-100.0); Mean Platelet Volume 9.4 fL (9.4-12.4); Monocytes # (auto) 0.31 K/uL (0.11-0.59); Monocytes % (auto) 6.4 %; Neutrophils # (auto) 3.49 K/uL (1.40-6.50); Neutrophils % (auto) 72.6 %; Platelet Count 255 K/uL (130-400); RDW Coefficient of Variation 13.3 % (11.5-14.5); RDW Standard Deviation 44.9 fL (36.4-46.3); Red Blood Count 4.21 M/uL (4.20-5.40); White Blood Count 4.81 K/ul (4.8-10.8)
--- NOTE | 2024-01-06 11:29 | CT Scan Report ---
CT OF THE HEAD WITHOUT CONTRAST CLINICAL HISTORY: fall, weakness COMPARISON STUDY: Head CT July 02, 2022. CT DOSE: 1210.12 mGy.cm TECHNIQUE: Helical axial images of the head were obtained without IV contrast. Automated exposure con trol was utilized for the study. A dose lowering technique was utilized adhering to the principles o f ALARA. FINDINGS: Study is mildly compromised by motion artifact. Atrophy and small vessel disease are unchan ged. No acute intracranial hemorrhage, midline shift or mass effect is present. The ventricular syste m is unremarkable. The basal cisterns are patent. No extra-axial collections are present. There are n o findings to suggest acute dural sinus thrombosis or acute territorial infarct. No calvarial fractur e. Minimal ethmoid sinus mucosal thickening is present. IMPRESSION: 1. No acute intracranial findings. No change in appearance of the brain. Exam mildly compromised by m otion artifact. 2. No calvarial fractures identified. ACT 112: Negative or not required by law. Electronically signed by: Lamont Alcazar M.D. 01/06/2024 11:28 AM
[2024-01-06 11:30] LABS: Albumin Globulin Ratio 1.3 (0.9-2); Albumin Level 4.3 gm/dl (3.4-5.0); BUN Creatinine Ratio 20.7 (10-20); Bilirubin,Total 0.4 mg/dl (0.2-1.0); Calcium 9.8 mg/dl (8.6-10.3); Creatinine Clr Calc Pharmacy 22.8 ml/min; Est GFR (African American) 38.2 ml/min; Globulin 3.2 gm/dl (2.5-4.0); Potassium 4.3 mmol/L (3.5-5.1); Total Protein 7.5 gm/dl (6.0-8.3)
[2024-01-06 11:33] LABS: Troponin I High Sensitivity 11.3 pg/ml (0-14)
--- NOTE | 2024-01-06 11:37 | CT Scan Report ---
CT OF THE ABDOMEN AND PELVIS WITHOUT CONTRAST CLINICAL HISTORY: right back and flank pain, fall last week COMPARISON STUDY: CT of the abdomen and pelvis February 21, 2022. TECHNIQUE: Axial images of the abdomen and pelvis were obtained without IV contrast. Images were revi ewed in the axial, sagittal, and coronal planes. Automated exposure control was utilized for the jack dy. A dose lowering technique was utilized adhering to the principles of ALARA. FINDINGS: There is an acute mildly displaced posterior right ninth rib fracture. Trace right pleural fluid is present. No pneumothorax within the visualized lower chest. T12 compression deformity is unc hanged since CT of February 21, 2022. No acute lumbar spine, pelvic or hip fracture is present. There is age indeterminate nondisplaced right sacral ala fracture. This is new since CT of February 21, 2022. No acute proximal femoral fracture is present. Healed intertrochanteric fracture of the left femur stat us post internal fixation is present. Extensive plaque within the abdominal aorta. Unenhanced images of the liver, spleen, adrenal glands, right kidney and pancreas are unremarkable. There is no abnorma lity within the left nephrectomy bed. No evidence for a bowel obstruction. Colonic diverticulosis wit hout evidence for acute diverticulitis. No lymphadenopathy is present. IMPRESSION: 1. Acute mildly displaced posterior right ninth rib fracture. 2. No acute process within the abdomen or pelvis on unenhanced exam. 3. Age indeterminate nondisplaced right sacral ala fracture. ACT 112: Negative or not required by law. Electronically signed by: Lamont Alcazar M.D. 01/06/2024 11:35 AM
[2024-01-06 11:43] LABS: Thyroid Stimulating Hormone 1.715 uIu/ml (0.300-4.500)
--- NOTE | 2024-01-06 11:43 | XRay Report ---
XR chest 1V portable CLINICAL HISTORY: weakness COMPARISON STUDY: Chest radiograph July 01, 2022. Chest CT July 02, 2022. FINDINGS: A left subclavian [id number]-[id number] is in place. Severe left glenohumeral joint osteoarthritis. Lung volumes are normal. Lungs are clear. There is no pneumothorax or pleural effusion. Cardiac size is normal. Mediastinal contours are normal. There is no evidence for pulmonary edema. IMPRESSION: No acute cardiopulmonary findings. No change in appearance of the chest. ACT 112: Negative or not required by law. Electronically signed by: Lamont Alcazar M.D. 01/06/2024 11:41 AM
[2024-01-06] MEDS: SODIUM CHLORIDE 0.9% 500 ML IV ONE (11:57)
[2024-01-06 12:38] LABS: Appearance Urine Clear (Clear); Bacteria Urine Automated Negative (Negative); Bilirubin Urine Negative (Negative); Blood Urine Negative (Negative); Color Urine Yellow; Epithelial Cell Urine Auto 20-30 /lpf (0-5); Glucose Urine UA Negative (Negative); Ketones Urine Negative (Negative); Leukocyte Esterase Urine Negative (Negative); Nitrite Urine Negative (Negative); Specific Gravity Urine 1.013 (1.000-1.030); Urobilinogen Urine Negative (Negative); pH Urine 8.5 (4.5-7.5)
[2024-01-06 12:45] LABS: Protein Urine Trace (Negative)
[2024-01-06] MEDS: HYDROCODONE/ACETAMOPHEN 5/325MG TAB PO STA ×2 (14:21→17:29)
[2024-01-06] MEDS: SODIUM CHLORIDE 0.9% 1,000 ML IV SCH ×2 (14:22→22:32)
--- NOTE | 2024-01-06 14:34 | Emergency Department Note ---
Impression & Plan Right rib fracture, Sacral fracture ED Provider Note NAME: ANNA LUA AGE: 83 SEX: Female INFORMANT: Patient ED PROVIDER(S): Moe Sosa MD CHIEF COMPLAINT: Fall and weakness PLAN: Disposition: Discharged Outpatient prescription management: [place] Referral: Primary follow-up this week MEDICAL DECISION MAKING: Patient presented because of weakness and a fall. She was complaining about right flank discomfort. She had tenderness on examination. A workup was initiated. CT imaging of the head as well as the abdomen pelvis did not reveal any intracranial findings however the patient does have a right ninth rib fracture as well as a right sacral ala fracture. These are a week old. She had an unremarkable CBC, chemistry panel, LFTs and troponin. ECG did show mild tachycardia with a left bundle branch block. When compared to prior ECG the left bundle branch block was not present however when compared to 24 March 2022 there is presence of a left bundle branch block. The patient was hydrated in the emergency department. She was given a small dose of [place] as she noted Tylenol was not helping with the pain. In light of the fractures she will need stronger analgesia. Urinalysis performed and was unremarkable. Patient was reevaluated and was given a second half dose of [place] due to continued pain. Patient does not feel well to be able to be discharged. Requesting admission. [facility] Discussed the case with Dr. Choi. Patient was evaluated in the ER and admitted for further management. Care/management discussed with: special education case manager Level of care consideration(s): After review of the information above and other included data, I feel the patient requires escalation of care to admission Triage Nursing notes: reviewed and agree them. Vital Signs: reviewed and remarkable for no significant abnormalities Additional History obtained from: none Chronic Medical/Social Conditions affecting care: Osteoarthritis, CKD, COPD Prior/ Outside/ External records reviewed: none Differential Diagnosis: Fracture, contusion, intracranial injury, infection, dehydration, metabolic abnormality, hypo/hyperglycemia, electrolyte disturbance, anemia, hypoxia, cardiac sources, intracerebral event, toxicologic, neurologic, as well as other pathologies. Diagnostics, independently interpreted by me: ECG: Twelve-lead ECG reveals sinus tachycardia at 102 bpm. Left bundle branch block present. No ST elevation or discordance. No PVCs Cardiac Monitoring: Cardiac monitoring ordered by me: The patient was placed on continuous cardiac monitoring and observed. It revealed a normal sinus rhythm at 87 beats per minute without ectopy or evidence of dysrhythmia. Medical decision rules: none Imaging studies: None HPI: 83 year old Female arrives for evaluation of fall and weakness. Patient noted a fall about a week ago. She is been dealing with right flank and back discomfort. She was feeling dehydrated and weak as she has had some decreased intake. She was trying Tylenol and meloxicam without any results. Patient does note that she did hit her head and had a mild. She also notes generalized myalgias and arthralgias as she has severe osteoarthritis. Patient denied any other trauma injury to the extremities or other parts of her body from the fall. Pt denies LOC, fevers, chills, diaphoresis, visual changes, neck pain, chest pain, breathing difficulties, nausea, vomiting, melena, hematochezia, urinary symptoms, numbness, lymphadenopathy, rash, or other complaints. PAST MEDICAL HISTORY: See Below, hypothyroidism CKD PAST SURGICAL HISTORY: See Below, nephrectomy SOCIAL HISTORY: See Below, resides at a assisted HOME MEDICATIONS: See Below ALLERGIES: See Below VITALS: See Below PHYSICAL EXAMINATION: GENERAL: Awake, alert, uncomfortable-appearing, in no distress HENT: Normocephalic, atraumatic. Oropharynx unremarkable. EYES: Normal conjunctiva. Sclera non-icteric. NECK: Inspection normal. Non-tender. Supple. No nuchal rigidity. FROM. No masses. RESPIRATORY: Clear to auscultation. No wheezes. No rales. Normal respiratory effort. CARDIAC: Normal rate. Normal rhythm. No murmurs. No rubs. Extremities warm and well perfused. Pulses equal. No JVD. GI: Soft, non-distended. No tenderness to palpation. No rebound or guarding. No masses. RECTAL: Deferred. MUSCULOSKELETAL: Atraumatic. Chest examination reveals no right posterolateral lower rib tenderness. The back is kyphotic on inspection without obvious abnormality. There is right CVA tenderness to palpation. No joint edema. LOWER EXTREMITIES: Calves are equal size bilaterally and non-tender. No edema. No discoloration. NEURO: Normal sensorium. No sensory or motor deficits noted. SKIN: No rash or jaundice noted. PROCEDURES: none CRITICAL CARE: none OBSERVATION NOTE: none Past Med/Surg History Medical History (Updated 01/06/24 @ 14:34 by Moe Sosa MD) Generalized pain Intractable pain Hypothyroidism Bipolar disorder Neuropathy CKD (chronic kidney disease), stage IV S/p nephrectomy Tobacco abuse COPD (chronic obstructive pulmonary disease) Osteoarthritis Malignant tumor of urinary bladder Malignant tumor of kidney COPD (chronic obstructive pulmonary disease) Dizziness Altered mental status UTI (urinary tract infection) History of kidney cancer Bladder cancer CKD (chronic kidney disease), stage IV Tobacco abuse Urothelial cancer (~2010) Surgical History History of partial hysterectomy H/O dilation and curettage Hx of total knee arthroplasty S/p nephrectomy "Left" H/O: hysterectomy Family History Aunt Heart disease [place] in her 50s Mother Breast cancer Father Prostate cancer Social History Smoking Status: Former smoker Tobacco Type: Cigarettes Cigarettes Per Day: 5; Second Hand Exposure: No; Do You Dip or Chew Tobacco: No; Hx Alcohol Use: No Hx Substance Use: No Preferred Language: Yi Communication Ability: Effective Visual Impairment: No Limitations Hearing Ability: Normal Project Account Manager Required: No Beliefs That Will Affect Care: None marital status: / Current Living Situation: [facility] How many Children do You have: 1 Feels Safe at Home: Yes Assistive Devices: Walker Allergies Allergies Allergy/AdvReac Type Severity Reaction Status Date / Time Penicillins Allergy Mild RASH Verified 07/02/22 00:31 albuterol [From ProAir HFA] AdvReac Intermediate Dizziness Verified 07/02/22 00:31 Home Meds Home Medications Medication Instructions Recorded Confirmed calcium carbonate 600 mg-vitamin 1 tab PO BID 11/20/18 07/02/22 D3 20 mcg (800 unit) chewable tablet (Caltrate 600 plus D) lamotrigine 25 mg tablet (Lamictal) 25 mg PO BID 08/12/20 07/02/22 acetaminophen 500 mg tablet 500 mg PO Q6H PRN Pain 08/26/20 07/02/22 (Tylenol Extra Strength) levothyroxine 88 mcg tablet 88 mcg PO QAM 12/09/20 07/02/22 (Synthroid) Cyanacobalamin 1,000 mcg QAM 07/02/22 07/02/22 albuterol sulfate 90 mcg/actuation 1 puff inhalation QID PRN 07/02/22 07/02/22 aerosol inhaler Shortness Of Breath aripiprazole 2 mg QAM 07/02/22 07/02/22 lorazepam 0.5 mg tablet 0.5 mg PO TID PRN Anxiety 07/02/22 07/02/22 melatonin 3 mg HS 07/02/22 07/02/22 neomycin 1.75 mg-polymyxin 10,000 1 drp ophthalmic (eye) DIRECTED 07/02/22 07/02/22 unit-gramicidin 0.025mg/mL eye drops Previous Rx's Medication Instructions Recorded mirtazapine 15 mg tablet 7.5 mg (1/2 x 15 mg) PO HS #15 tabs 03/31/22 Results & Data (ED) Vital Signs Vital Signs - 24 hr 01/06/24 09:22 01/06/24 09:43 01/06/24 11:00 Temperature 36.5 C Temperature Source Oral Pulse Rate 88 89 87 Pulse Rate from SpO2 Sensor 87 Respiratory Rate 22 20 Respiratory Effort / Characteristics Non-Labored Spontaneous Respiratory Depth Normal Respiratory Pattern Regular Blood Pressure 183/96 H 152/90 H Blood Pressure Mean 125 110 Pulse Oximetry 94 94 Oxygen Delivery Method Room Air Sepsis Recent Fever Within 48 Hours No Sepsis New/Unexplained Change in Mental Status No Sepsis Action Taken by Nursing No Action Required Laboratory Data 01/06/24 10:30 01/06/24 10:30 Lab Results 01/06/24 01/06/24 01/06/24 Range/Units 10:30 10:30 10:30 WBC 4.81 (4.8-10.8) K/ul RBC 4.21 (4.20-5.40) M/uL Hgb 12.1 (12.0-16.0) g/dl Hct 39.0 (37.0-47.0) % MCV 92.6 (80.0-100.0) fL MCH 28.7 (25.0-34.0) pg MCHC 31.0 L (32.0-36.0) g/dL RDW Std Deviation 44.9 (36.4-46.3) fL RDW Coeff of Margarito 13.3 (11.5-14.5) % Plt Count 255 (130-400) K/uL MPV 9.4 (9.4-12.4) fL Immature Gran % (Auto) 0.4 % Neut % (Auto) 72.6 % Lymph % (Auto) 18.5 % [place] % (Auto) 6.4 % Eos % (Auto) 1.7 % Baso % (Auto) 0.4 % Neut # (Auto) 3.49 (1.40-6.50) K/uL Lymph # (Auto) 0.89 L (1.20-3.40) K/uL [place] # (Auto) 0.31 (0.11-0.59) K/uL Eos # (Auto) 0.08 (0.00-0.50) K/uL Baso # (Auto) 0.02 (0.00-0.20) K/uL Immature Gran # (Auto) 0.02 (0.01-0.20) K/uL Sodium 143 (136-145) mmol/L Potassium 4.3 (3.5-5.1) mmol/L Chloride 110 H (98-107) mmol/L Carbon Dioxide 26 (21-32) mmol/L Anion Gap 7 (3-11) BUN 30 H (6-23) mg/dl Creatinine 1.45 H (0.6-1.2) mg/dl Est Cr Clr Drug Dosing 22.8 ml/min Est GFR ( Amer) 38.2 ml/min Est GFR (Non-Af Amer) 33.0 ml/min BUN/Creatinine Ratio 20.7 H (10-20) Glucose 98 (70-99(Fasting)) mg/dl Calcium 9.8 (8.6-10.3) mg/dl Magnesium 2.0 (1.7-2.4) mg/dl Total Bilirubin 0.4 (0.2-1.0) mg/dl AST 16 (13-39) U/L ALT 8 (7-52) U/L Alkaline Phosphatase 91 (34-104) U/L Total Creatine Kinase 54 Cancelled (26-192) U/L Troponin I High Sens 11.3 Cancelled (0-14) pg/ml Total Protein 7.5 (6.0-8.3) gm/dl Albumin 4.3 (3.4-5.0) gm/dl Globulin 3.2 (2.5-4.0) gm/dl Albumin/Globulin Ratio 1.3 (0.9-2) TSH 1.715 (0.300-4.500) uIu/ml Urine Color Urine Appearance (Clear) Urine pH (4.5-7.5) Ur Specific [place] (1.000-1.030) Urine Protein (Negative) Urine Glucose (UA) (Negative) Urine Ketones (Negative) Urine Blood (Negative) Urine Nitrite (Negative) Urine Bilirubin (Negative) Urine Urobilinogen (Negative) Ur Leukocyte Esterase (Negative) Urine WBC (Auto) (0-5) /hpf Urine RBC (Auto) (0-4) /hpf U Hyaline Cast (Auto) (0-5) /lpf U Epithel Cells (Auto) (0-5) /lpf Urine Bacteria (Auto) (Negative) 01/06/24 Range/Units Unknown WBC (4.8-10.8) K/ul RBC (4.20-5.40) M/uL Hgb (12.0-16.0) g/dl Hct (37.0-47.0) % MCV (80.0-100.0) fL MCH (25.0-34.0) pg MCHC (32.0-36.0) g/dL RDW Std Deviation (36.4-46.3) fL RDW Coeff of Margarito (11.5-14.5) % Plt Count (130-400) K/uL MPV (9.4-12.4) fL Immature Gran % (Auto) % Neut % (Auto) % Lymph % (Auto) % [place] % (Auto) % Eos % (Auto) % Baso % (Auto) % Neut # (Auto) (1.40-6.50) K/uL Lymph # (Auto) (1.20-3.40) K/uL [place] # (Auto) (0.11-0.59) K/uL Eos # (Auto) (0.00-0.50) K/uL Baso # (Auto) (0.00-0.20) K/uL Immature Gran # (Auto) (0.01-0.20) K/uL Sodium (136-145) mmol/L Potassium (3.5-5.1) mmol/L Chloride (98-107) mmol/L Carbon Dioxide (21-32) mmol/L Anion Gap (3-11) BUN (6-23) mg/dl Creatinine (0.6-1.2) mg/dl Est Cr Clr Drug Dosing ml/min Est GFR ( Amer) ml/min Est GFR (Non-Af Amer) ml/min BUN/Creatinine Ratio (10-20) Glucose (70-99(Fasting)) mg/dl Calcium (8.6-10.3) mg/dl Magnesium (1.7-2.4) mg/dl Total Bilirubin (0.2-1.0) mg/dl AST (13-39) U/L ALT (7-52) U/L Alkaline Phosphatase (34-104) U/L Total Creatine Kinase (26-192) U/L Troponin I High Sens (0-14) pg/ml Total Protein (6.0-8.3) gm/dl Albumin (3.4-5.0) gm/dl Globulin (2.5-4.0) gm/dl Albumin/Globulin Ratio (0.9-2) TSH (0.300-4.500) uIu/ml Urine Color Yellow Urine Appearance Clear (Clear) Urine pH 8.5 H (4.5-7.5) Ur Specific [place] 1.013 (1.000-1.030) Urine Protein Trace H (Negative) Urine Glucose (UA) Negative (Negative) Urine Ketones Negative (Negative) Urine Blood Negative (Negative) Urine Nitrite Negative (Negative) Urine Bilirubin Negative (Negative) Urine Urobilinogen Negative (Negative) Ur Leukocyte Esterase Negative (Negative) Urine WBC (Auto) 1-5 (0-5) /hpf Urine RBC (Auto) 5-10 H (0-4) /hpf U Hyaline Cast (Auto) 1-5 (0-5) /lpf U Epithel Cells (Auto) 20-30 H (0-5) /lpf Urine Bacteria (Auto) Negative (Negative) Administered Medications Sodium Chloride (Nss) 1,000 mls @ 125 mls/hr IV .Q8H EDUARDO Stop: 02/05/24 10:59 Last Admin: 01/06/24 14:22 Dose: 125 mls/hr Documented By: MT Discontinued Medications Hydrocodone Bitart/Acetaminophen (Hydrocodone/Acetamophen 5/325mg Tab) 0.5 tab PO NOW STA Stop: 01/06/24 13:05 Last Admin: 01/06/24 14:21 Dose: 0.5 tab Documented By: AMANDO Sodium Chloride (Nss) 500 mls @ 999 mls/hr IV .Q31M ONE Stop: 01/06/24 11:18 Last Infusion: 01/06/24 14:22 Dose: Infused Documented By: Admin: 01/06/24 11:57 Dose: 999 mls/hr Documented By: AMANDO Imaging Data Radiologist's Impression: Abdomen/Pelvis CT 01/06/24 10:48 CT OF THE ABDOMEN AND PELVIS WITHOUT CONTRAST CLINICAL HISTORY: right back and flank pain, fall last week COMPARISON STUDY: CT of the abdomen and pelvis February 21, 2022. TECHNIQUE: Axial images of the abdomen and pelvis were obtained without IV contrast. Images were reviewed in the axial, sagittal, and coronal planes. Automated exposure control was utilized for the study. A dose lowering technique was utilized adhering to the principles of ALARA. FINDINGS: There is an acute mildly displaced posterior right ninth rib fracture. Trace right pleural fluid is present. No pneumothorax within the visualized lower chest. T12 compression deformity is unchanged since CT of February 21, 2022. No acute lumbar spine, pelvic or hip fracture is present. There is age indeterminate nondisplaced right sacral ala fracture. This is new since CT of February 21, 2022. No acute proximal femoral fracture is present. Healed intertrochanteric fracture of the left femur status post internal fixation is present. Extensive plaque within the abdominal aorta. Unenhanced images of the liver, spleen, adrenal glands, right kidney and pancreas are unremarkable. There is no abnormality within the left nephrectomy bed. No evidence for a bowel obstruction. Colonic diverticulosis without evidence for acute diverticulitis. No lymphadenopathy is present. IMPRESSION: 1. Acute mildly displaced posterior right ninth rib fracture. 2. No acute process within the abdomen or pelvis on unenhanced exam. 3. Age indeterminate nondisplaced right sacral ala fracture. ACT 112: Negative or not required by law. Electronically signed by: Lamont Alcazar M.D. 01/06/2024 11:35 AM Chest X-Ray 01/06/24 10:48 XR chest 1V portable CLINICAL HISTORY: weakness COMPARISON STUDY: Chest radiograph July 01, 2022. Chest CT July 02, 2022. FINDINGS: A left subclavian [id number] is in place. Severe left glenohumeral joint osteoarthritis. Lung volumes are normal. Lungs are clear. There is no pneumothorax or pleural effusion. Cardiac size is normal. Mediastinal contours are normal. There is no evidence for pulmonary edema. IMPRESSION: No acute cardiopulmonary findings. No change in appearance of the chest. ACT 112: Negative or not required by law. Electronically signed by: Lamont Alcazar M.D. 01/06/2024 11:[address] 01/06/24 10:49 CT OF THE HEAD WITHOUT CONTRAST CLINICAL HISTORY: fall, weakness COMPARISON STUDY: Head CT July 02, 2022. CT DOSE: 1210.12 mGy.cm TECHNIQUE: Helical axial images of the head were obtained without IV contrast. Automated exposure control was utilized for the study. A dose lowering technique was utilized adhering to the principles of ALARA. FINDINGS: Study is mildly compromised by motion artifact. Atrophy and small vessel disease are unchanged. No acute intracranial hemorrhage, midline shift or mass effect is present. The ventricular system is unremarkable. The basal cisterns are patent. No extra-axial collections are present. There are no findings to suggest acute dural sinus thrombosis or acute territorial infarct. No calvarial fracture. Minimal ethmoid sinus mucosal thickening is present. IMPRESSION: 1. No acute intracranial findings. No change in appearance of the brain. Exam mildly compromised by motion artifact. 2. No calvarial fractures identified. ACT 112: Negative or not required by law. Electronically signed by: Lamont Alcazar M.D. 01/06/2024 11:28 AM Discharge Plan Visit Data Chief Complaint: Weakness ED Provider: Moe Sosa Discharge Problem: Right rib fracture, Sacral fracture Forms Stand Alone Forms: [facility] Prescriptions Prescriptions: No Action Caltrate 600 plus D 600 mg (1,500 mg)-800 unit Tablet,Chewable 1 tab PO BID lamotrigine [Lamictal] 25 mg tablet 25 mg PO BID levothyroxine [Synthroid] 88 mcg tablet 88 mcg PO QAM acetaminophen [Tylenol Extra Strength] 500 mg Tablet 500 mg PO Q6H PRN (Reason: Pain) mirtazapine 15 mg Tablet 7.5 mg PO HS Qty: 15 0RF lorazepam 0.5 mg tablet 0.5 mg PO TID PRN (Reason: Anxiety) albuterol sulfate 90 mcg/actuation Hfa Aerosol Inhaler 1 puff INHALATION QID PRN (Reason: Shortness Of Breath) [id number] 1.75 mg-10,000 unit-0.025mg/mL drops 1 drp ophthalmic (eye) DIRECTED Rx Instructions: right eye Cyanacobalamin 1,000 mcg 1,000 mcg QAM aripiprazole 2 mg 2 mg QAM melatonin 3 mg 3 mg HS Referrals Referrals: [facility] [Primary Care Provider] -
[2024-01-06] MEDS ORDERED: HYDROmorphone INJ 0.5 MG/0.5 ML SYR IV PRN (16:12)
--- NOTE | 2024-01-06 16:27 | History & Physical Report ---
Date of Service January 06, 2024 Assessment & Plan (1) Sacral fracture: Plan: History of multiple falls 1 fall last week and another fall yesterday Complains of pain in the right lateral chest wall and also at the pelvis area with activities and movement Has sacral alar fracture slightly displaced Conservative management Will get Ortho evaluation PT and OT (2) Right rib fracture: Plan: Secondary to fall Acute mildly displaced posterior right ninth rib fracture Pain medications Lidocaine patch and oral [place] (3) Generalized weakness: Plan: Contributed by not been eating and drinking enough Will give some intravenous fluid (4) CKD (chronic kidney disease) stage 4, GFR 15-29 ml/min: Plan: Has chronic kidney disease Creatinine remains stable at 1.45 Will give cautious amount of intravenous fluid Monitor PRP (5) Adjustment disorder with depressed mood: Plan: Continue with current medications (6) Hypothyroidism: Plan: Continue supplement (7) Severe malnutrition: (8) Chronic pain syndrome: (9) COPD (chronic obstructive pulmonary disease): Plan: Remains stable Plan DVT prophylaxis Subcu heparin CODE STATUS DNR/DNI History of Present Illness Chief Complaint: Falls with pain and weakness Primary Care Provider: [facility] She is an 83-year-old female with significant past medical history of emphysema, tobacco abuse, chronic kidney disease stage IV, adjustment disorder with depressed mood, hypothyroidism, chronic pain syndrome, history of malignant tumor of bladder and kidney apparently was brought in from [facility] with recurrent falls and pain. She has had a fall about 1 week ago and has not been eating or drinking much for the last few days. She has had another fall yesterday and has been complaining of more pain at the pelvis and also rib area. She has been generally very weak and lethargic and complaining of pain with ambulation. Imaging studies showed she has acute mildly displaced posterior right ninth rib fracture and also age indeterminate none displaced right sacral ala fracture. Her CT scan of the head remained unremarkable and her blood tests have been unremarkable too. She was admitted to control pain and increase mobility. Allergies Allergy/AdvReac Type Severity Reaction Status Date / Time Penicillins Allergy Mild RASH Verified 07/02/22 00:31 albuterol [From ProAir HFA] AdvReac Intermediate Dizziness Verified 07/02/22 00:31 Home Medications Medication Instructions Recorded Confirmed Type calcium carbonate 600 mg-vitamin 1 tab PO BID 11/20/18 07/02/22 History D3 20 mcg (800 unit) chewable tablet (Caltrate 600 plus D) lamotrigine 25 mg tablet (Lamictal) 25 mg PO BID 08/12/20 07/02/22 History acetaminophen 500 mg tablet 500 mg PO Q6H PRN Pain 08/26/20 07/02/22 History (Tylenol Extra Strength) levothyroxine 88 mcg tablet 88 mcg PO QAM 12/09/20 07/02/22 History (Synthroid) mirtazapine 15 mg tablet 7.5 mg (1/2 x 15 mg) PO HS #15 tabs 03/31/22 07/02/22 Rx Cyanacobalamin 1,000 mcg QAM 07/02/22 07/02/22 History albuterol sulfate 90 mcg/actuation 1 puff inhalation QID PRN 07/02/22 07/02/22 History aerosol inhaler Shortness Of Breath aripiprazole 2 mg QAM 07/02/22 07/02/22 History lorazepam 0.5 mg tablet 0.5 mg PO TID PRN Anxiety 07/02/22 07/02/22 History melatonin 3 mg HS 07/02/22 07/02/22 History neomycin 1.75 mg-polymyxin 10,000 1 drp ophthalmic (eye) DIRECTED 07/02/22 07/02/22 History unit-gramicidin 0.025mg/mL eye drops Past Med/Surg History Medical History (Updated 01/06/24 @ 14:34 by Moe Sosa MD) Generalized pain Intractable pain Hypothyroidism Bipolar disorder Neuropathy CKD (chronic kidney disease), stage IV S/p nephrectomy Tobacco abuse COPD (chronic obstructive pulmonary disease) Osteoarthritis Malignant tumor of urinary bladder Malignant tumor of kidney COPD (chronic obstructive pulmonary disease) Dizziness Altered mental status UTI (urinary tract infection) History of kidney cancer Bladder cancer CKD (chronic kidney disease), stage IV Tobacco abuse Urothelial cancer (~2010) Surgical History History of partial hysterectomy H/O dilation and curettage Hx of total knee arthroplasty S/p nephrectomy "Left" H/O: hysterectomy Family History Aunt Heart disease [place] in her 50s Mother Breast cancer Father Prostate cancer Social History Smoking Status: Former smoker Tobacco Type: Cigarettes Cigarettes Per Day: 5; Second Hand Exposure: No; Do You Dip or Chew Tobacco: No; Hx Alcohol Use: No Hx Substance Use: No Preferred Language: Rwandan Communication Ability: Effective Visual Impairment: No Limitations Hearing Ability: Normal Candle Maker Required: No Beliefs That Will Affect Care: None marital status: / Current Living Situation: Senior Care How many Children do You have: 1 Feels Safe at Home: Yes Assistive Devices: Walker Review of Systems Review of Systems: All systems reviewed and are unremarkable except as noted below Physical Exam Physical Exam: Lying in bed with distress secondary to pain specially in the rib and also in the pelvis area Constitutional: + ill appearing and + thin Eyes: PERRL, conjunctivae normal, anicteric sclerae ENMT: external ear and nose normal, oropharynx normal Neck: trachea midline, no thyromegaly Respiratory: no respiratory distress Auscultation: + diminished lung sounds and + wheezes (Minimal); no crackles Cardiovascular: Rate/Rhythm: regular rate and regular rhythm; not tachycardic Heart Sounds: normal S1 and normal S2; no murmur Extremities: no edema Gastrointestinal (Abdomen): Inspection/Auscultation: normal bowel sounds; abdomen not distended Percussion/Palpation: abdomen soft; abdomen nontender Musculoskeletal: No acute arthritis involving any of the joint Neurologic: Alert and awake. Generally anxious and weak. No focal neurodeficit Lymphatic: no cervical or axillary lymphadenopathy Results & Data Results & Data Vital Signs (Past 12 Hours) Vital Signs Temp Pulse Resp BP Pulse Ox O2 Del Method 01/06/24 11:00 87 20 152/90 H 94 01/06/24 09:43 89 01/06/24 09:22 36.5 C 88 22 183/96 H 94 Room Air Laboratory Results Short CBC 01/06/24 Range/Units 10:30 WBC 4.81 (4.8-10.8) K/ul Hgb 12.1 (12.0-16.0) g/dl Hct 39.0 (37.0-47.0) % Plt Count 255 (130-400) K/uL BMP 01/06/24 10:30 Sodium 143 Potassium 4.3 Chloride 110 H Carbon Dioxide 26 BUN 30 H Creatinine 1.45 H Glucose 98 Calcium 9.8 Cardiac Enzymes 01/06/24 01/06/24 Range/Units 10:30 10:30 Total Creatine Kinase 54 Cancelled (26-192) U/L Liver Function 01/06/24 Range/Units 10:30 Total Bilirubin 0.4 (0.2-1.0) mg/dl AST 16 (13-39) U/L ALT 8 (7-52) U/L Alkaline Phosphatase 91 (34-104) U/L Albumin 4.3 (3.4-5.0) gm/dl Urine 01/06/24 Range/Units Unknown Urine Color Yellow Urine Appearance Clear (Clear) Urine pH 8.5 H (4.5-7.5) Ur Specific [place] 1.013 (1.000-1.030) Urine Protein Trace H (Negative) Urine Glucose (UA) Negative (Negative) Medications Administered Current Inpatient Medications Hydrocodone Bitart/Acetaminophen (Hydrocodone/Acetamophen 5/325mg Tab) 1 tab PO Q4H PRN PRN Reason: Pain Stop: 01/20/24 16:11 Hydromorphone HCl (Hydromorphone Inj 0.5 Mg/0.5 Ml Syr) 0.25 mg IV Q6H PRN PRN Reason: Pain Stop: 01/20/24 16:11 Sodium Chloride (Nss) 1,000 mls @ 125 mls/hr IV .Q8H EDUARDO Stop: 02/05/24 10:59 Last Admin: 01/06/24 14:22 Dose: 125 mls/hr Sodium Chloride (Nss) 1,000 mls @ 80 mls/hr IV .[id number] EDUARDO Stop: 01/08/24 05:44 Code Status & VTE Plan VTE Prophylaxis Plan VTE Prophylaxis will be ordered: Yes (6) Hypothyroidism Hypothyroidism type: unspecified Qualified Code(s): E03.9 - Hypothyroidism, unspecified (9) COPD (chronic obstructive pulmonary disease) COPD type: unspecified COPD Qualified Code(s): J44.9 - Chronic obstructive pulmonary disease, unspecified
[2024-01-06] MEDS ORDERED: ALBUTEROL HFA 8 GM INHALER INH PRN (19:09)
[2024-01-06] MEDS ORDERED: LORazepam 0.5 MG TAB PO PRN (19:09)
[2024-01-06] MEDS: HYDROCODONE/ACETAMOPHEN 5/325MG TAB PO PRN (20:47)
[2024-01-06] MEDS: lamoTRIgine 25 MG TAB PO SCH (22:33)
[2024-01-06] MEDS: MELATONIN 3 MG TAB PO SCH (22:33)
[2024-01-06] MEDS: CALCIUM 600MG + VIT D 400 IU TAB PO SCH (22:33)
[2024-01-06] MEDS: MIRTAZAPINE TAB 15 MG TAB PO SCH (22:33)
[2024-01-06] MEDS: NEOMYCIN/POLYMYXIN/GRAMICIDIN 10 ML BTL OPR SCH (23:03)
[2024-01-07] MEDS: LEVOTHYROXINE SODIUM 88 MCG TABLET PO SCH (06:45)
[2024-01-07] MEDS: ACETAMINOPHEN 500 MG TAB PO PRN (08:26)
[2024-01-07] MEDS: CYANOCOBALAMIN (B-12) 500 MCG TABLET PO SCH (08:26)
[2024-01-07] MEDS ORDERED: NITROGLYCERIN SL 0.4 MG/TAB TAB SL PRN (12:30)
[2024-01-07] MEDS: METOPROLOL TARTRATE 50 MG TAB PO SCH (12:52)
--- NOTE | 2024-01-07 14:00 | Cardiology Consultation ---
Date of Consultation January 07, 2024 Assessment & Plan (1) Sacral fracture: (2) Right rib fracture: (3) New onset left bundle branch block (LBBB): (4) Torsades de pointes: (5) Wide-complex tachycardia: (6) HTN (hypertension): (7) Generalized weakness: (8) Weight loss: Plan 83 year old female admitted for pain control post recurrent falls, with resultant acute mildly displaced right posterior ninth rib fracture and an age- indeterminate nondisplaced right sacral ala fracture. Blood pressure markedly elevated. EKG with a new left bundle branch block (? rate related LBBB). High sensitivity troponin negative. Telemetry with transient wide complex tachycardia concerning for Torsades versus artifact. Chest pain is right sided and reproducible. High-sensitivity troponin negative x 1 (11.3 pg/mL). Magnesium normal at 2.0 yesterday. TSH normal at 1.715. Potassium normal at 4.3. Creatinine elevated at 1.45 mg/dL. Resting echocardiography pending. Patient requesting conservative medical management, adverse to cardioversion/defibrillation; DNR/DNI. Agree with beta-angela therapy, metoprolol tartrate 25 mg BID for now Add topical nitrates for blood pressure control. Check metabolic panel, magnesium, repeat HS Troponin. Add oral magnesium supplementation, maintaining normokalemia and normomagnesemia. Avoid QTc prolonging medications. Refer for resting echocardiography Maintain telemetry. Pain control as per Hospitalist. Supervising Physician Co-Signing Physician Notes I have reviewed the advance practitioner's documentation, and I agree with, and take responsibility for the plan of care. Patient was personally seen and examined, inpatient and output chart, medications, telemetry reviewed. Patient is a fragile 83-year-old female underlying severe pulmonary emphysema b ipolar disease stage III 4 chronic kidney disease admitted after 2 mechanical falls with sacral and rib fractures. Currently being treated with pain control. Had a patient had observed wide-complex tachycardia and a torsade pattern. Patient conversant throughout no loss of consciousness complained of pain in the right side of chest consistent with rib fracture area during event. EKG revealed intermittent left bundle branch block with lateral ST segment abnormalities. Currently asymptomatic Echocardiogram with preserved LV function, moderate mitral insufficiency: Calcific changes of the valve without obstruction Exam: Heart rate 87 blood pressure 168/93 with a thin cachectic appearing elderly female, conversant answering question. Denies loss of consciousness syncope or near syncope Lungs with diminished breath sounds but clear chest with focal tenderness right Extremities Free of edema Wide-complex tachycardia/torsade: Initial findings not consistent with ischemia but not excluded. EKG post left bundle branch block with significant LVH strain pattern Will treat hypertension with beta-angela therapy topical nitrates Maintain optimal electrolytes Avoid QT prolonging drugs agree with holding Abilify caution with Dilaudid Discussed with patient. Once again states she would not consider defibrillation in the setting of lethal arrhythmia or aggressive manage above Plan as outlined above History of Present Illness Reason for Consultation: Ventricular fibrillation Requesting Physician: Dr. Cosme Attending Physician: Dr. Cosme History of Present Illness Ayse Hou is a 83-year-old female resident of [facility] who was admitted to [facility] on January 06, 2024 after experiencing two recent falls, one approximately a week ago and another the day prior to arrival. Imaging this admission revealed an acute mildly displaced right posterior ninth rib fracture and an age-indeterminate nondisplaced right sacral ala fracture. Patient admitted for pain control. Poor PO intake noted along with weakness, lethargy, generalized debility, ongoing weight loss. Admission EKG on January 06, 2024 at 09:41:16 revealed sinus tachycardia at 102 bpm with a first-degree AV block, new left bundle branch block. QTc 479 ms In the morning of 01/07/2024 the patient was being evaluated by the hospitalist. Telemetry at that time (11:12:50) revealed wide-complex tachyarrhythmia concerning for VT/Vfib leading to this cardiology consultation. Patient experiencing chest pain at that time. She tells me the discomfort is located in the right anterolateral rib area and that it is reproducible with palpation. High-sensitivity troponin obtained x 1 on January 06, 2024 at 10:30 AM, 11.3 pg/mL. TSH normal at 1.715. Potassium normal at 4.3. Magnesium normal at 2.0. Sodium normal at 143. Creatinine elevated at 1.45. Calcium normal at 9.8. Total creatinine kinase normal at 54. White blood cell count, hemoglobin and hematocrit, and platelet count within normal range. Chest x-ray revealed a left-sided a port with clear lungs, without evidence of pneumothorax or pleural effusion. Patient with right anterolateral chest wall pain that is reproducible with palpitation. No left-sided chest pain. No pleuritic pain. No recent palpitations. Breathing has been stable, improved when lying down. No reported orthopnea or PND. No lower extremity peripheral edema. Patient recalls previously being evaluated by Dr. 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 Family History: Mother with breast cancer. Father with prostate cancer. Aunt with CAD. Social History: Reformed chronic tobacco user. Lives at [facility]. Originally from [facility]. Allergies Allergy/AdvReac Type Severity Reaction Status Date / Time Penicillins Allergy Mild RASH Verified 07/02/22 00:31 albuterol [From ProAir HFA] AdvReac Intermediate Dizziness Verified 07/02/22 00:31 Home Medications Medication Instructions Recorded Confirmed Type lamotrigine 25 mg tablet (Lamictal) See Rx Instructions .Route .COMPLEX 08/12/20 01/06/24 History acetaminophen 500 mg tablet 500 mg PO Q6H PRN Pain 08/26/20 01/06/24 History (Tylenol Extra Strength) levothyroxine 88 mcg tablet 88 mcg PO QAM 12/09/20 01/06/24 History (Synthroid) aripiprazole 2 mg tablet (Abilify) 2 mg QAM ##0 07/02/22 01/06/24 History lorazepam 0.5 mg tablet 0.5 mg PO BID PRN Anxiety 07/02/22 01/06/24 History melatonin 3 mg tablet 3 mg HS ##0 07/02/22 01/06/24 History neomycin 1.75 mg-polymyxin 10,000 1 drp OPR TID 07/02/22 01/06/24 History unit-gramicidin 0.025mg/mL eye drops lamotrigine 100 mg tablet See Rx Instructions .Route .COMPLEX 01/06/24 01/06/24 History mirtazapine 15 mg tablet 15 mg PO HS 01/06/24 01/06/24 History Patient History Medical History Generalized pain Intractable pain Hypothyroidism Bipolar disorder Neuropathy CKD (chronic kidney disease), stage IV S/p nephrectomy Tobacco abuse COPD (chronic obstructive pulmonary disease) Osteoarthritis Malignant tumor of urinary bladder Malignant tumor of kidney COPD (chronic obstructive pulmonary disease) Dizziness Altered mental status UTI (urinary tract infection) History of kidney cancer Bladder cancer CKD (chronic kidney disease), stage IV Tobacco abuse Urothelial cancer (~2010) Surgical History History of partial hysterectomy H/O dilation and curettage Hx of total knee arthroplasty S/p nephrectomy "Left" H/O: hysterectomy Family History Aunt Heart disease [place] in her 50s Mother Breast cancer Father Prostate cancer Social History Smoking Status: Former smoker Tobacco Type: Cigarettes Cigarettes Per Day: 5; Second Hand Exposure: No; Do You Dip or Chew Tobacco: No; Hx Alcohol Use: No Hx Substance Use: No Preferred Language: Mohawk Communication Ability: Effective Visual Impairment: No Limitations Hearing Ability: Normal 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 Physical Exam Physical Exam: General: A&Ox3. NAD. Cachectic. HENT: Normocephalic. Atraumatic. Eyes: PER. Conjunctiva pink, sclera clear. Neck: No carotid bruits. No JVD. Heart: Regular at 80 bpm. Soft systolic murmur at the LLSB. + Gallop. No diastolic murmur. No rub. PMI is nondisplaced. Lungs: Diminished. Clear to auscultation. No wheeze. Abdomen: +BS. Soft. Nontender. No masses or organomegaly. Extremities: Marked arthritic changes. No clubbing. No cyanosis. No lower extremity peripheral edema. Limited neurological examination is without focal deficits. Pulses: radial=2/4, posterior tibial=1/4. Results & Data Vital Signs (Past 12 Hours) Vital Signs Pulse Resp BP Pulse Ox O2 Del Method 01/07/24 12:00 188/100 H 01/07/24 12:00 108 H 19 92 01/07/24 11:28 90 22 91 01/07/24 11:28 156/85 H 01/07/24 10:00 182/98 H 01/07/24 10:00 98 H 22 91 01/07/24 09:03 117 H 14 01/07/24 09:03 176/102 H 01/07/24 08:55 166/108 H 01/07/24 08:55 92 H 17 01/07/24 08:00 85 27 H 91 01/07/24 07:49 84 01/07/24 06:00 89 22 159/91 H 93 Room Air 01/07/24 04:00 84 21 160/88 H 90 Room Air 01/07/24 02:00 77 17 180/98 H 92 Room Air Laboratory Results Intake and Output 01/06/24 01/07/24 01/07/24 22:59 06:59 14:59 Intake Total 1240 / 1740 1000 / 1000 Output Total 750 / 750 Balance 490 / 990 1000 / 1000 Intake: IV 1000 / 1500 1000 / 1000 Sodium Chloride 0.9% 1,000 ml @ 1000 / 1000 1000 / 1000 80 mls/hr IV .[id number] [facility] Rx#: [id number] Oral 240 / 240 Output: Urine 750 / 750 Other: Weight 49 kg 49 kg Weight Measurement Method Built in [facility] Patient Weight 01/08/24 06:59 Weight 49 kg
[2024-01-07] MEDS ORDERED: LABETALOL HCL IV 5 MG/ML 20ML IV PRN (14:03)
--- NOTE | 2024-01-07 14:07 | Hospitalist Progress Note ---
Date of Service January 07, 2024 Assessment & Plan (1) Sacral fracture: Plan: Nondisplaced Right Sacral Ala Fracture Acute mildly displaced right ninth rib fracture H/O recurrent Falls Chronic Pain/chronic neuropathy --CT:Acute mildly displaced posterior right ninth rib fracture. Age indeterminate nondisplaced right sacral ala fracture. --CXR:No acute cardiopulmonary findings. No change in appearance of the chest. --CT head:No acute intracranial findings. No change in appearance of the brain. Exam mildly compromised by motion artifact. No calvarial fractures identified. Fall precautions, pain control Orthopedics consulted PT OT as able Hypertensive urgency Atypical Chest pain Transient wide-complex tachycardia Sinus tachycardia Left bundle branch block --Normal TSH --Initial troponin negative --ECHO pending --Trend troponin Started on metoprolol 20 mg BID IV labetalol as needed Cardiology consulted Monitor and replace electrolytes as needed (2) Right rib fracture: Plan: Management as above (3) Generalized weakness: Plan: Secondary to comorbidities (4) CKD (chronic kidney disease) stage 4, GFR 15-29 ml/min: Plan: CKD IV Cr at baseline Avoid nephrotoxic agents as able Monitor renal function (5) Adjustment disorder with depressed mood: Plan: Bipolar disorder Continue home medications (6) Hypothyroidism: Plan: Continue levothyroxine Conjunctivitis Continue ophthalmic drops (7) Severe malnutrition: Plan: Severe protein calorie malnutrition Poor oral intake BMI 18 Dietitian consulted (8) Chronic pain syndrome: (9) COPD (chronic obstructive pulmonary disease): Plan: H/O tobacco use No signs of acute exacerbation Albuterol as needed Plan DVT Px: Heparin SQ CODE STATUS DNR/DNI Disposition PT OT prior to discharge Admission and Anticipated Discharge Date Admission Date: January 06, 2024 Subjective Patient is seen and examined at bedside Reports low back pain and rib pain Also admits to have chest pain associated with nausea, some dyspnea and dizziness Had transient tachyarrhythmia Blood pressure elevated today No other complaints Review of Systems Review of Systems: All systems reviewed & are unremarkable except as noted in Subjective Physical Exam Physical Exam: Physical Exam: Vitals signs as noted above General Appearance:Thin, frail, elderly, chronic ill appearing Head: normocephalic, Atraumatic Eyes: normal inspection, EOMI,+Crusting Neck: supple, Trachea midline Respiratory/Chest: Decreased breath sounds, CTA, No accessory muscle use Cardiovascular: S1, S2, No murmur Abdomen/GI:Soft, Non tender, Bowel sounds present Extremities/Musculoskeletal:+Kyphosis, normal inspection, no edema Neurologic/Psych:AAOX3, grossly no focal neurological deficits Skin: normal color, warm Results & Data Results & Data Vital Signs (Past 12 Hours) Vital Signs Pulse Resp BP Pulse Ox O2 Del Method 01/07/24 12:00 188/100 H 01/07/24 12:00 108 H 19 92 01/07/24 11:28 90 22 91 01/07/24 11:28 156/85 H 01/07/24 10:00 182/98 H 01/07/24 10:00 98 H 22 91 01/07/24 09:03 117 H 14 01/07/24 09:03 176/102 H 01/07/24 08:55 166/108 H 01/07/24 08:55 92 H 17 01/07/24 08:00 85 27 H 91 01/07/24 07:49 84 01/07/24 06:00 89 22 159/91 H 93 Room Air 01/07/24 04:00 84 21 160/88 H 90 Room Air Laboratory Results Cardiac Enzymes 01/06/24 01/06/24 Range/Units 10:30 10:30 Total Creatine Kinase 54 Cancelled (26-192) U/L (6) Hypothyroidism Hypothyroidism type: unspecified Qualified Code(s): E03.9 - Hypothyroidism, unspecified (9) COPD (chronic obstructive pulmonary disease) COPD type: unspecified COPD Qualified Code(s): J44.9 - Chronic obstructive pulmonary disease, unspecified
[2024-01-07] MEDS: NITROGLYCERIN 2% OINTMENT 30GM TUBE EXT SCH (15:16)
[2024-01-07 15:30] LABS: BUN Creatinine Ratio 20.7 (10-20); Calcium 10.2 mg/dl (8.6-10.3); Creatinine Clr Calc Pharmacy 26.8 ml/min; Est GFR (African American) 47.6 ml/min; Est GFR (Non-African American) 41.1 ml/min; Magnesium 1.6 mg/dl (1.7-2.4); Potassium 4.7 mmol/L (3.5-5.1)
[2024-01-07] MEDS: MAGNESIUM OXIDE 400 MG TAB PO SCH (16:03)
[2024-01-07] MEDS: CIPROFLOXACIN HCL 0.3% OP SOLN 2.5 ML BTL OP SCH (16:04)
[2024-01-07] MEDS: MAGNESIUM SULFATE / D5W 1 GM/100 ML BAG IV SCH (16:52)
--- NOTE | 2024-01-07 19:05 | Electrocardiogram Report ---
Test Reason : Blood Pressure : / mmHG Vent. Rate : 102 BPM Atrial Rate : 102 BPM P-R Int : 204 ms QRS Dur : 124 ms QT Int : 368 ms P-R-T Axes : 066 004 096 degrees QTc Int : 479 ms Sinus tachycardia Left bundle branch block Abnormal ECG When compared with ECG of 01-JUL-2022 22:38, Left bundle branch block is now Present Confirmed by Ottoniel Mcginnis ([id number]) on 01/07/2024 7:05:03 PM Referred By: REFERRED SELF Confirmed By:Ottoniel Mcginnis
[2024-01-07] MEDS: HEPARIN SOD 5,000 UNIT/0.5 ML VIAL SQ SCH (20:08)
[2024-01-07] MEDS: METOPROLOL TARTRATE 25 MG TAB PO SCH (20:12)
[2024-01-08 05:39] LABS: BUN Creatinine Ratio 25.7 (10-20); Calcium 9.4 mg/dl (8.6-10.3); Creatinine Clr Calc Pharmacy 23.1 ml/min; Est GFR (African American) 39.9 ml/min; Est GFR (Non-African American) 34.4 ml/min; Magnesium 2.5 mg/dl (1.7-2.4); Potassium 4.3 mmol/L (3.5-5.1)
--- NOTE | 2024-01-08 10:22 | Cardiology Progress Note ---
Date of Service January 08, 2024 Assessment & Plan (1) Sacral fracture: (2) Right rib fracture: (3) New onset left bundle branch block (LBBB): (4) Torsades de pointes: (5) Wide-complex tachycardia: (6) HTN (hypertension): (7) Generalized weakness: (8) Weight loss: Plan 83 year old female admitted for pain control following recurrent falls with resultant acute mildly displaced right posterior ninth rib fracture and an age- indeterminate nondisplaced right sacral ala fracture. Blood pressures initially markedly elevated. EKG with a new left bundle branch block (? rate related LBBB). Telemetry (single-lead in the ER) with transient wide complex tachycardia most consistent with artifact though concerning for possible transient Torsades. Resting echocardiography with preserved LV systolic function. Chest pain notably reproducible with palpation of the chest wall. Recommendations: Conservative medical management as requested; DNR/DNI. Continue beta-angela therapy Replace topical nitrates with amlodipine Avoid QTc prolonging medications Pain control as per Hospitalist. Admission and Anticipated Discharge Date Admission Date: January 06, 2024 Supervising Physician Co-Signing Physician Notes I have reviewed the advance practitioner's documentation, and I agree with, and take responsibility for the plan of care. Patient was personally seen and examined, inpatient and output chart, medications, telemetry reviewed. No further arrhythmias on telemetry question true arrhythmia versus artifact. Treatment will remain the same No plans for aggressive intervention per patient Continue beta-angela, blood pressure control as planned Subjective Patient seen and examined. Chart, medications, telemetry reviewed. Reproducible chest wall pain. + Chest congestion. + Back pain. No palpitations. No dizziness. No near syncope. Telemetry: Sinus with heart rates ranging from the 50s to the 90s, currently in the 80s. High-sensitivity troponin: 11.3, 26.0, 24.5 pg/mL TTE: Normal size LV. Moderate concentric LVH. Thickened and angulated basal se ptum consistent with sigmoid septum. Septal motion consistent with conduction abnormality. Wall motion otherwise normal. Ejection fraction 60 to 65%. Grade 1 diastolic dysfunction. Moderate aortic valve sclerosis without significant stenosis. Focal calcification of the left coronary cusp. Mild mitral annular calcification. Moderate mitral regurgitation. Trace tricuspid regurgitation. Review of Systems Review of Systems: Complete Review of Systems is as stated above, negative, or noncontributory. Physical Exam Physical Exam: General: A&Ox3. NAD. Cachectic. HENT: Normocephalic. Atraumatic. Eyes: PER. Conjunctiva pink, sclera clear. Neck: No carotid bruits. No JVD. Chest: Reproducible midline chest discomfort and right anterolateral chest discomfort. Heart: Regular at 76 bpm. Soft systolic murmur at the LLSB. + Gallop. No diastolic murmur. No rub. PMI is nondisplaced. Lungs: Diminished. Scattered rhonchi that improved post cough. No wheeze. Abdomen: +BS. Soft. Nontender. No masses or organomegaly. Extremities: Arthritic changes. No clubbing. No cyanosis. No lower extremity peripheral edema. Limited neurological examination is without focal deficits. Pulses: radial=2/4, posterior tibial=1/4. Results & Data Vital Signs (Past 12 Hours) Vital Signs Temp Pulse Pulse Resp BP Pulse Ox O2 Del Method 01/08/24 08:46 35.7 C L 67 18 105/55 L 95 Room Air 01/08/24 02:47 36.7 C 72 18 148/79 H 96 Room Air 01/07/24 23:24 58 L 01/07/24 23:00 36.8 C 60 16 106/64 93 Room Air Laboratory Results Cardiac Enzymes 01/07/24 01/07/24 Range/Units 14:50 19:02 Troponin I High Sens 26.0 H D 24.5 H (0-14) pg/ml Comprehensive Metabolic Panel 01/07/24 01/08/24 Range/Units 14:50 04:57 Sodium 141 141 (136-145) mmol/L Potassium 4.7 4.3 (3.5-5.1) mmol/L Chloride 111 H 113 H (98-107) mmol/L Carbon Dioxide 21 20 L (21-32) mmol/L BUN 25 H 36 H (6-23) mg/dl Creatinine 1.21 H 1.40 H (0.6-1.2) mg/dl Glucose 125 H 104 H (70-99(Fasting)) mg/dl Calcium 10.2 9.4 (8.6-10.3) mg/dl Intake and Output 01/07/24 01/08/24 01/08/24 22:59 06:59 14:59 Intake Total 190 / 2440 1250 / 2440 Balance 190 / 2440 1250 / 2440 Intake: IV 190 / 2190 1000 / 2190 Magnesium Sulfate / D5w 1 gm In 190 / 190 100 ml @ 50 mls/hr IV Q2H EDUARDO Rx#:[id number] Sodium Chloride 0.9% 1,000 ml @ 1000 / 2000 50 mls/hr IV .Q20H EDUARDO Rx#: [id number] Oral 250 / 250 Other: # Unmeasured Voids 2
[2024-01-08] MEDS: amLODIPine BESYLATE 5 MG TAB PO SCH (11:09)
--- NOTE | 2024-01-08 16:09 | Hospitalist Progress Note ---
Date of Service January 08, 2024 Assessment & Plan (1) Sacral fracture: Plan: Nondisplaced Right Sacral Ala Fracture Acute mildly displaced right ninth rib fracture H/O recurrent Falls Chronic Pain/chronic neuropathy --CT:Acute mildly displaced posterior right ninth rib fracture. Age indeterminate nondisplaced right sacral ala fracture. --CXR:No acute cardiopulmonary findings. No change in appearance of the chest. --CT head:No acute intracranial findings. No change in appearance of the brain. Exam mildly compromised by motion artifact. No calvarial fractures identified. Fall precautions, pain control Orthopedics consulted--pending PT OT as able Will benefit from rehab placement Hypertensive urgency Atypical Chest pain Transient wide-complex tachycardia Sinus tachycardia Left bundle branch block --Normal TSH --Initial troponin negative --ECHO: Left ventricle is normal in size. Moderate concentric LVH. Basal septum is thickened and angulated consistent with sigmoid septum. Septal motion is consistent with conduction abnormality. Wall motion is otherwise normal. EF 60 to 60%. Grade 1 diastolic dysfunction. Aortic valve sclerosis moderate, without significant aortic valve stenosis. Focal calcification of the left coronary cusp. Mild mitral annular calcification. Moderate mitral regurgitation. Mitral regurgitation jet is eccentrically directed. Trace tricuspid regurgitation --Trend troponin Started on metoprolol 25 mg BID IV labetalol as needed Monitor and replace electrolytes as needed Conservative management Appreciate cardiology input Avoid QTc prolonging medications Added amlodipine 5 mg daily (2) Right rib fracture: Plan: Management as above (3) Generalized weakness: Plan: Secondary to comorbidities (4) CKD (chronic kidney disease) stage 4, GFR 15-29 ml/min: Plan: CKD IV Cr at baseline Avoid nephrotoxic agents as able Monitor renal function (5) Adjustment disorder with depressed mood: Plan: Bipolar disorder Continue home medications (6) Hypothyroidism: Plan: Continue levothyroxine Conjunctivitis Continue ophthalmic drops (7) Severe malnutrition: Plan: Severe protein calorie malnutrition Poor oral intake BMI 18 Dietitian consulted (8) Chronic pain syndrome: (9) COPD (chronic obstructive pulmonary disease): Plan: H/O tobacco use No signs of acute exacerbation Albuterol as needed Plan DVT Px: Heparin SQ CODE STATUS DNR/DNI Disposition PT OT prior to discharge Admission and Anticipated Discharge Date Admission Date: January 06, 2024 Subjective Patient is seen and examined at bedside Still has right rib pain Feels mildly congested Sacral pain is controlled No other complaints Review of Systems Review of Systems: All systems reviewed & are unremarkable except as noted in Subjective Physical Exam Physical Exam: Physical Exam: Vitals signs as noted above General Appearance:Thin, frail, elderly, chronic ill appearing Head: normocephalic, Atraumatic Eyes: normal inspection, EOMI,+Crusting Neck: supple, Trachea midline Respiratory/Chest: Decreased breath sounds, CTA, No accessory muscle use Cardiovascular: S1, S2, No murmur Abdomen/GI:Soft, Non tender, Bowel sounds present Extremities/Musculoskeletal:+Kyphosis, normal inspection, no edema Neurologic/Psych:AAOX3, grossly no focal neurological deficits Skin: normal color, warm Results & Data Results & Data Vital Signs (Past 12 Hours) Vital Signs Temp Pulse Resp BP Pulse Ox O2 Del Method 01/08/24 12:38 36.7 C 64 18 105/55 L 93 Room Air 01/08/24 08:46 35.7 C L 67 18 105/55 L 95 Room Air Laboratory Results [facility] 01/08/24 04:57 Sodium 141 Potassium 4.3 Chloride 113 H Carbon Dioxide 20 L BUN 36 H Creatinine 1.40 H Glucose 104 H Calcium 9.4 (6) Hypothyroidism Hypothyroidism type: unspecified Qualified Code(s): E03.9 - Hypothyroidism, unspecified (9) COPD (chronic obstructive pulmonary disease) COPD type: unspecified COPD Qualified Code(s): J44.9 - Chronic obstructive pulmonary disease, unspecified
--- NOTE | 2024-01-08 16:13 | Orthopedic Consultation ---
Date of Service January 08, 2024 History of Present Illness Reason for Consultation: . Rib fracture, pelvic fracture from fall Requesting Physician: . Attending Physician: Jame Cosme MD 83-year-old female with medical history of emphysema, tobacco abuse, chronic kidney disease stage IV, adjustment disorder with depressed mood, hypothyroidism, chronic pain syndrome, history of malignant tumor of bladder and kidney, brought in with recurrent falls and pain. She has had a fall about 1 week ago and has not been eating or drinking much for the last few days, with another fall 01/06 and has been complaining of more pain at the pelvis and also rib area. She has been generally very weak and lethargic and complaining of pain with ambulation. Patient today indicates that her more significant pain is on the right in the region of the lower rib cage, on the mobilization that she has had she has not noticed a significant amount of pain in the pelvic area. Exam reveals the patient to have tenderness in the right rib cage corresponding to the rib fracture, but she is nontender to lateral compression or posterior palpation in the right pelvic area identified as the area of possible sacral alar fracture. Otherwise neurologically intact lower extremities, intact strength. CT OF THE ABDOMEN AND PELVIS WITHOUT CONTRAST, 01/06/24 CLINICAL HISTORY: right back and flank pain, fall last week COMPARISON STUDY: CT of the abdomen and pelvis February 21, 2022. TECHNIQUE: Axial images of the abdomen and pelvis were obtained without IV con trast. Images were reviewed in the axial, sagittal, and coronal planes. Automated exposure control was utilized for the study. A dose lowering technique was utilized adhering to the principles of ALARA. FINDINGS: There is an acute mildly displaced posterior right ninth rib fracture. Trace right pleural fluid is present. No pneumothorax within the visualized lower chest. T12 compression deformity is unchanged since CT of February 21, 2022. No acute lumbar spine, pelvic or hip fracture is present. There is age indeterminate nondisplaced right sacral ala fracture. This is new since CT of February 21, 2022. No acute proximal femoral fracture is present. Healed intertrochanteric fracture of the left femur status post internal fixation is present. Extensive plaque within the abdominal aorta. Unenhanced images of the liver, spleen, adrenal glands, right kidney and pancreas are unremarkable. There is no abnormality within the left nephrectomy bed. No evidence for a bowel obstruction. Colonic diverticulosis without evidence for acute diverticulitis. No lymphadenopathy is present. IMPRESSION: 1. Acute mildly displaced posterior right ninth rib fracture. 2. No acute process within the abdomen or pelvis on unenhanced exam. 3. Age indeterminate nondisplaced right sacral ala fracture. CT scan images of the pelvis and abdomen were reviewed, these are my separate interpretation, rib fractures appreciated, there is a very minimal buckling laterally in the sacral alar region, indeterminate as to age. Impression: Right ninth rib fracture as noted on CT of the abdomen and pelvis, age-indeterminate right sacral alar fracture minimal. Plan: Recommend ambulating patient with weightbearing as tolerated, I indicated to the patient that I am not positive that this is a new sacral air fracture, pain with independent weightbearing will give us some additional information as she mobilizes. Regardless she would continue to be weightbearing as tolerated, if she has pain on the right side she can utilize a walker to decrease the weight on that leg as tolerated. Follow-up at some point in the next 2 to 4 weeks with AP radiograph of the pelvis. Allergies Allergy/AdvReac Type Severity Reaction Status Date / Time Penicillins Allergy Mild RASH Verified 07/02/22 00:31 albuterol [From ProAir HFA] AdvReac Intermediate Dizziness Verified 07/02/22 00:31 Home Medications Medication Instructions Recorded Confirmed Type lamotrigine 25 mg tablet (Lamictal) See Rx Instructions .Route .COMPLEX 08/12/20 01/06/24 History acetaminophen 500 mg tablet 500 mg PO Q6H PRN Pain 08/26/20 01/06/24 History (Tylenol Extra Strength) levothyroxine 88 mcg tablet 88 mcg PO QAM 12/09/20 01/06/24 History (Synthroid) aripiprazole 2 mg tablet (Abilify) 2 mg QAM ##0 07/02/22 01/06/24 History lorazepam 0.5 mg tablet 0.5 mg PO BID PRN Anxiety 07/02/22 01/06/24 History melatonin 3 mg tablet 3 mg HS ##0 07/02/22 01/06/24 History neomycin 1.75 mg-polymyxin 10,000 1 drp OPR TID 07/02/22 01/06/24 History unit-gramicidin 0.025mg/mL eye drops lamotrigine 100 mg tablet See Rx Instructions .Route .COMPLEX 01/06/24 01/06/24 History mirtazapine 15 mg tablet 15 mg PO HS 01/06/24 01/06/24 History Past Med/Surg History Medical History Generalized pain Intractable pain Hypothyroidism Bipolar disorder Neuropathy CKD (chronic kidney disease), stage IV S/p nephrectomy Tobacco abuse COPD (chronic obstructive pulmonary disease) Osteoarthritis Malignant tumor of urinary bladder Malignant tumor of kidney COPD (chronic obstructive pulmonary disease) Dizziness Altered mental status UTI (urinary tract infection) History of kidney cancer Bladder cancer CKD (chronic kidney disease), stage IV Tobacco abuse Urothelial cancer (~2010) Surgical History History of partial hysterectomy H/O dilation and curettage Hx of total knee arthroplasty S/p nephrectomy "Left" H/O: hysterectomy Family History Aunt Heart disease [place] in her 50s Mother Breast cancer Father Prostate cancer Social History Smoking Status: Former smoker Tobacco Type: Cigarettes Cigarettes Per Day: 5; Second Hand Exposure: No; Do You Dip or Chew Tobacco: No; Hx Alcohol Use: No Hx Substance Use: No Preferred Language: Maltese Communication Ability: Effective Visual Impairment: No Limitations Hearing Ability: Normal Airplane Rental Clerk Required: No Beliefs That Will Affect Care: None marital status: / Current Living Situation: [facility] Current Living Situation Comment: [facility] How many Children do You have: 1 Other Information That Helps Us Care for You: No Feels Safe at Home: Yes Safety Concerns: Feels Safe At This Time Assistive Devices: Walker Assistive Devices Comment: glasses and partial Review of Systems All systems reviewed & are unremarkable except as noted in HPI & below. Physical Exam . Results & Data Results & Data Laboratory Results . Diagnostic Findings . PG Care Time/CCT Total # of Minutes Spent Total Time Spent with Patient: Total time spent is greater than 50% in coordination of care (as documented) at patient's floor/unit and/or counseling patient: Coding Level of Care Code 23426 IN/OBS CONSULT LVL 3,45M
--- NOTE | 2024-01-09 05:23 | Electrocardiogram Report ---
Test Reason : Blood Pressure : / mmHG Vent. Rate : 093 BPM Atrial Rate : 093 BPM P-R Int : 190 ms QRS Dur : 120 ms QT Int : 368 ms P-R-T Axes : 021 088 -45 degrees QTc Int : 457 ms Normal sinus rhythm Left bundle branch block Abnormal ECG When compared with ECG of 06-JAN-2024 09:41, No significant change Confirmed by Ottoniel Mcginnis ([id number]) on 01/09/2024 5:23:09 AM Referred By: REFERRED SELF Confirmed By:Ottoniel Mcginnis
[2024-01-09 06:02] LABS: Hematocrit (blood only) 36.8 % (37.0-47.0); Hemoglobin 11.8 g/dl (12.0-16.0); Mean Corpuscular Hemoglobin 29.1 pg (25.0-34.0); Mean Corpuscular Hgb Conc 32.1 g/dL (32.0-36.0); Mean Corpuscular Volume 90.6 fL (80.0-100.0); Mean Platelet Volume 9.5 fL (9.4-12.4); Platelet Count 243 K/uL (130-400); RDW Coefficient of Variation 13.2 % (11.5-14.5); RDW Standard Deviation 44.3 fL (36.4-46.3); Red Blood Count 4.06 M/uL (4.20-5.40); White Blood Count 5.53 K/ul (4.8-10.8)
[2024-01-09 06:17] LABS: Calcium 9.7 mg/dl (8.6-10.3); Creatinine Clr Calc Pharmacy 20.2 ml/min; Est GFR (African American) 33.9 ml/min; Est GFR (Non-African American) 29.3 ml/min; Magnesium 2.1 mg/dl (1.7-2.4); Potassium 4.8 mmol/L (3.5-5.1)
--- NOTE | 2024-01-09 09:55 | Cardiology Progress Note ---
Date of Service January 09, 2024 Assessment & Plan (1) Sacral fracture: (2) Right rib fracture: (3) New onset left bundle branch block (LBBB): (4) Torsades de pointes: (5) Wide-complex tachycardia: (6) HTN (hypertension): (7) Generalized weakness: (8) Weight loss: Plan 83 year old female admitted for pain control following recurrent falls with resultant acute mildly displaced right posterior ninth rib fracture and an age- indeterminate nondisplaced right sacral ala fracture. Blood pressures initially markedly elevated then labile. EKG with a new left bundle branch block (? rate related LBBB). Telemetry (single-lead in the ER) with transient wide complex tachycardia most consistent with artifact though concerning for possible transient Torsades. Resting echocardiography with preserved LV systolic function. Chest pain notably reproducible with palpation of the chest wall. Recommendations: 1. Conservative medical management as requested; DNR/DNI. 2. Continue beta-angela therapy, switching to metoprolol succinate formulation 3. if significant hypotension observed would reduce amlodipine dosing 4. Avoid QTc prolonging medications 5. Pain control as per Hospitalist. 6. Please contact with any questions or concerns. Admission and Anticipated Discharge Date Admission Date: January 06, 2024 Supervising Physician Co-Signing Physician Notes I have reviewed the advance practitioner's documentation, and I agree with, and take responsibility for the plan of care. Patient was personally seen and examined, inpatient and output chart, medications, telemetry reviewed. No further arrhythmias on telemetry question true arrhythmia versus artifact. Treatment will remain the same No plans for aggressive intervention per patient Continue beta-angela as ordered Avoid QT prolonging medication Strongly encouraged increased dietary intake Subjective Patient seen and examined. Chart, medications, telemetry reviewed. Diffuse pain. Dizziness attributed to [place]. Willing to try lidocaine patches and Voltaren gel Reproducible chest wall pain. Breathing stable. No orthopnea or PND. No syncope. Blood pressure labile Telemetry: Sinus with heart rates in the 60s and 70s Review of Systems Review of Systems: Complete Review of Systems is as stated above, negative, or noncontributory. Physical Exam Physical Exam: General: A&Ox3. NAD. Cachectic. HENT: Normocephalic. Atraumatic. Eyes: PER. Conjunctiva pink, sclera clear. Neck: No carotid bruits. No JVD. Chest: Reproducible chest discomfort with palpation Heart: Regular at 70 bpm. Soft systolic murmur at the LLSB. Lungs: Clear. No wheeze. Abdomen: +BS. Soft. Nontender. No masses or organomegaly. Extremities: Arthritic changes. No clubbing. No cyanosis. No lower extremity peripheral edema. Limited neurological examination is without focal deficits. Pulses: radial=2/4, posterior tibial=1/4. Results & Data Vital Signs (Past 12 Hours) Vital Signs Temp Pulse Pulse Resp BP BP Pulse Ox 01/09/24 07:44 36.8 C 71 17 104/56 L 94 01/09/24 04:37 37.0 C 57 L 18 121/70 95 01/08/24 23:01 36.8 C 61 18 141/79 H 94 01/08/24 22:49 62 O2 Del Method 01/09/24 07:44 Room Air 01/09/24 04:37 Room Air 01/08/24 23:01 Room Air 01/08/24 22:49 Laboratory Results CBC 01/09/24 Range/Units 05:31 WBC 5.53 (4.8-10.8) K/ul RBC 4.06 L (4.20-5.40) M/uL Hgb 11.8 L (12.0-16.0) g/dl Hct 36.8 L (37.0-47.0) % Plt Count 243 (130-400) K/uL Comprehensive Metabolic Panel 01/09/24 Range/Units 05:31 Sodium 137 (136-145) mmol/L Potassium 4.8 (3.5-5.1) mmol/L Chloride 107 (98-107) mmol/L Carbon Dioxide 23 (21-32) mmol/L BUN 40 H (6-23) mg/dl Creatinine 1.60 H (0.6-1.2) mg/dl Glucose 88 (70-99(Fasting)) mg/dl Calcium 9.7 (8.6-10.3) mg/dl Intake and Output 01/08/24 01/09/24 01/09/24 22:59 06:59 14:59 Intake Total 340 / 630 50 / 630 Balance 340 / 630 50 / 630 Intake: Oral 340 / 630 50 / 630 Other: # Urine Diapers 2 2 Diagnostic Findings TTE: Normal size LV. Moderate concentric LVH. Thickened and angulated basal septum consistent with sigmoid septum. Septal motion consistent with conduction abnormality. Wall motion otherwise normal. Ejection fraction 60 to 65%. Grade 1 diastolic dysfunction. Moderate aortic valve sclerosis without significant stenosis. Focal calcification of the left coronary cusp. Mild mitral annular calcification. Moderate mitral regurgitation. Trace tricuspid regurgitation.
[2024-01-09] MEDS: METOPROLOL SUCC 50MG EXT REL TAB PO SCH (11:18)
[2024-01-09] MEDS ORDERED: ACETAMINOPHEN 1,000 MG/100 ML VIAL IV PRN (12:11)
--- NOTE | 2024-01-09 12:11 | Hospitalist Progress Note ---
Date of Service January 09, 2024 Assessment & Plan (1) Sacral fracture: Plan: Nondisplaced Right Sacral Ala Fracture Acute mildly displaced right ninth rib fracture H/O recurrent Falls Chronic Pain/chronic neuropathy --CT:Acute mildly displaced posterior right ninth rib fracture. Age indeterminate nondisplaced right sacral ala fracture. --CXR:No acute cardiopulmonary findings. No change in appearance of the chest. --CT head:No acute intracranial findings. No change in appearance of the brain. Exam mildly compromised by motion artifact. No calvarial fractures identified. Fall precautions, pain control Orthopedics consulted--appreciate input and recommendation for physical therapy and pain control. Will evaluate during follow-up in 2 to 4 weeks with [facility] radiographs of the pelvis PT OT as able Will benefit from rehab placement Complains pain but dizzy with narcotic pain medications Will try lidocaine patch And intravenous Tylenol Strongly advised to participate in PT and OT Hypertensive urgency Atypical Chest pain Has had transient wide-complex tachycardia in the ER and cardiology was consulted Sinus tachycardia Left bundle branch block --Normal TSH --Initial troponin negative --ECHO: Left ventricle is normal in size. Moderate concentric LVH. Basal septum is thickened and angulated consistent with sigmoid septum. Septal motion is consistent with conduction abnormality. Wall motion is otherwise normal. EF 60 to 60%. Grade 1 diastolic dysfunction. Aortic valve sclerosis moderate, without significant aortic valve stenosis. Focal calcification of the left coronary cusp. Mild mitral annular calcification. Moderate mitral regurgitation. Mitral regurgitation jet is eccentrically directed. Trace tricuspid regurgitation Serial troponins did not show any evidence of ACS Appreciate cardiology input and recommendation Started on metoprolol 25 mg BID Monitor and replace electrolytes as needed Conservative management Avoid QTc prolonging medications Added amlodipine 5 mg daily Denies any cardiac symptoms (2) Right rib fracture: Plan: Management as above (3) Generalized weakness: Plan: Secondary to comorbidities Will have PT and OT evaluation (4) CKD (chronic kidney disease) stage 4, GFR 15-29 ml/min: Plan: CKD IV Cr at baseline Avoid nephrotoxic agents as able Monitor renal function-creatinine remains stable at around 1.60 (5) Adjustment disorder with depressed mood: Plan: Bipolar disorder Continue home medications (6) Hypothyroidism: Plan: Continue levothyroxine Conjunctivitis Continue ophthalmic drops (7) Severe malnutrition: Plan: Severe protein calorie malnutrition Poor oral intake BMI 18 Dietitian consulted (8) Chronic pain syndrome: (9) COPD (chronic obstructive pulmonary disease): Plan: H/O tobacco use No signs of acute exacerbation Albuterol as needed Plan DVT Px: Heparin SQ CODE STATUS DNR/DNI Disposition PT OT prior to discharge Admission and Anticipated Discharge Date Admission Date: January 06, 2024 Subjective 01/09/2024 The patient was seen and examined in telemetry unit She has been complaining of more pain in multiple areas including sacral area, left shoulder and right chest wall Complains today of some shortness of breath but saturating normally on room air Denies any abdominal pain nausea or vomiting She has been dizzy with narcotic pain medications Review of Systems Review of Systems: All systems reviewed and are unremarkable except as noted below Physical Exam Physical Exam: Lying in bed with distress secondary to pain specially in the rib and also in the pelvis area Constitutional: + ill appearing and + thin Eyes: PERRL, conjunctivae normal, anicteric sclerae ENMT: external ear and nose normal, oropharynx normal Neck: trachea midline, no thyromegaly Respiratory: no respiratory distress Auscultation: + diminished lung sounds and + wheezes (Minimal); no crackles Cardiovascular: Rate/Rhythm: regular rate and regular rhythm; not tachycardic Heart Sounds: normal S1 and normal S2; no murmur Extremities: no edema Gastrointestinal (Abdomen): Inspection/Auscultation: normal bowel sounds; abdomen not distended Percussion/Palpation: abdomen soft; abdomen nontender Musculoskeletal: Movement of the lower extremities produces some pain at the back Neurologic: Alert and awake. Generally very weak Lymphatic: no cervical or axillary lymphadenopathy Results & Data Results & Data Vital Signs (Past 12 Hours) Vital Signs Temp Pulse Resp BP BP Pulse Ox O2 Del Method 01/09/24 11:53 36.9 C 83 19 123/63 93 Room Air 01/09/24 08:00 Room Air 01/09/24 07:44 36.8 C 71 17 104/56 L 94 Room Air 01/09/24 04:37 37.0 C 57 L 18 121/70 95 Room Air Laboratory Results Short CBC 01/09/24 Range/Units 05:31 WBC 5.53 (4.8-10.8) K/ul Hgb 11.8 L (12.0-16.0) g/dl Hct 36.8 L (37.0-47.0) % Plt Count 243 (130-400) K/uL BMP 01/09/24 05:31 Sodium 137 Potassium 4.8 Chloride 107 Carbon Dioxide 23 BUN 40 H Creatinine 1.60 H Glucose 88 Calcium 9.7 Medications Administered Current Inpatient Medications Acetaminophen (Acetaminophen 500 Mg Tab) 500 mg PO Q6H PRN PRN Reason: Pain Stop: 02/05/24 19:08 Last Admin: 01/07/24 18:43 Dose: 500 mg Hydrocodone Bitart/Acetaminophen (Hydrocodone/Acetamophen 5/325mg Tab) 1 tab PO Q4H PRN PRN Reason: Pain Stop: 01/20/24 16:11 Last Admin: 01/09/24 07:57 Dose: 1 tab Albuterol (Albuterol Hfa 8 Gm Inhaler) 1 puffs INH QID PRN PRN Reason: Shortness Of Breath Stop: 02/05/24 19:08 Amlodipine Besylate (Amlodipine Besylate 5 Mg Tab) 5 mg PO QAM [facility] Stop: 02/07/24 10:29 Last Admin: 01/09/24 09:49 Dose: 5 mg Calcium/Vitamin D (Calcium 600mg + Vit D 400 Iu Tab) 1 tab PO BID [facility] Stop: 02/05/24 20:59 Last Admin: 01/09/24 09:49 Dose: 1 tab Cyanocobalamin (Cyanocobalamin (B-12) 500 Mcg Tablet) 1,000 mcg PO QAM [facility] Stop: 02/06/24 08:59 Last Admin: 01/09/24 09:49 Dose: 1,000 mcg Heparin Sodium (Porcine) (Heparin Sod 5,000 Unit/0.5 Ml Vial) 5,000 units SQ Q12 [facility] Stop: 02/06/24 20:59 Last Admin: 01/09/24 09:49 Dose: 5,000 units Hydromorphone HCl (Hydromorphone Inj 0.5 Mg/0.5 Ml Syr) 0.25 mg IV Q6H PRN PRN Reason: Pain Stop: 01/20/24 16:11 Labetalol HCl (Labetalol Hcl Iv 5 Mg/Ml 20ml) 10 mg IV Q6H PRN PRN Reason: Hypertension SBP>180orDBP>100 Stop: 02/06/24 14:02 Lamotrigine (Lamotrigine 25 Mg Tab) 25 mg PO BID [facility]; Protocol Stop: 02/05/24 20:59 Last Admin: 01/09/24 09:49 Dose: 25 mg Levothyroxine Sodium (Levothyroxine Sodium 88 Mcg Tablet) 88 mcg PO DAILYBB [facility] Stop: 02/06/24 06:29 Last Admin: 01/09/24 04:38 Dose: 88 mcg Lidocaine (L[facility]ocaine 5% 1 Patch) [facility] Stop: 02/09/24 08:59 Lorazepam (Lorazepam 0.5 Mg Tab) 0.5 mg PO TID PRN PRN Reason: Anxiety Stop: 02/05/24 19:08 Magnesium Oxide (Magnesium Oxide 400 Mg Tab) 400 mg PO [facility] Stop: 02/06/24 14:59 Last Admin: 01/09/24 09:50 Dose: 400 mg Melatonin (Melatonin 3 Mg Tab) 3 mg PO [facility] Stop: 02/05/24 20:59 Last Admin: 01/08/24 21:02 Dose: 3 mg Metoprolol Succinate (Metoprolol Succ 50mg Ext Rel Tab) 50 mg PO [facility] Stop: 02/08/24 09:59 Last Admin: 01/09/24 11:18 Dose: 50 mg Mirtazapine (Mirtazapine Tab 15 Mg Tab) 7.5 mg PO [facility] Stop: 02/05/24 20:59 Last Admin: 01/08/24 21:00 Dose: 7.5 mg Miscellaneous (Remove Lidoderm Patch) 1 each N/A DAILY@2100 [facility] Stop: 02/08/24 20:59 Neomycin/Polymyxin/Gramicidin (Neomycin/Polymyxin/Gramicidin 10 Ml Btl) 1 drops OPR TID [facility] Stop: 02/05/24 20:59 Last Admin: 01/09/24 09:50 Dose: 1 drops Nitroglycerin (Nitroglycerin Sl 0.4 Mg/Tab Tab) 0.4 mg SL Q5M PRN PRN Reason: Chest Pain Stop: 02/06/24 12:29 (6) Hypothyroidism Hypothyroidism type: unspecified Qualified Code(s): E03.9 - Hypothyroidism, unspecified (9) COPD (chronic obstructive pulmonary disease) COPD type: unspecified COPD Qualified Code(s): J44.9 - Chronic obstructive pulmonary disease, unspecified
[2024-01-09] MEDS: LIDOCAINE 5% 1 PATCH TD STA (12:28)
[2024-01-10 06:46] LABS: Calcium 9.4 mg/dl (8.6-10.3); Creatinine Clr Calc Pharmacy 18.9 ml/min; Est GFR (African American) 31.3 ml/min; Potassium 4.7 mmol/L (3.5-5.1)
[2024-01-10] MEDS: LIDOCAINE 5% 1 PATCH TD SCH (10:11)
[2024-01-10] MEDS: POLYETHYLENE (MIRALAX) 17 GM PACK PO SCH (11:23)
[2024-01-10] MEDS: bisacodyL 10 MG SUPP PR STA (11:24)
--- NOTE | 2024-01-10 12:48 | Hospitalist Progress Note ---
Date of Service January 10, 2024 Assessment & Plan (1) Sacral fracture: Plan: Nondisplaced Right Sacral Ala Fracture Acute mildly displaced right ninth rib fracture H/O recurrent Falls Chronic Pain/chronic neuropathy --CT:Acute mildly displaced posterior right ninth rib fracture. Age indeterminate nondisplaced right sacral ala fracture. --CXR:No acute cardiopulmonary findings. No change in appearance of the chest. --CT head:No acute intracranial findings. No change in appearance of the brain. Exam mildly compromised by motion artifact. No calvarial fractures identified. Fall precautions, pain control Orthopedics consulted--appreciate input and recommendation for physical therapy and pain control. Will evaluate during follow-up in 2 to 4 weeks with [facility] radiographs of the pelvis PT OT as able Will benefit from rehab placement Complains pain but dizzy with narcotic pain medications Will try lidocaine patch And intravenous Tylenol Strongly advised to participate in PT and OT Remains reasonably stable and wants Tylenol for pain control Has been getting physical therapy and awaiting placement Hypertensive urgency Atypical Chest pain Has had transient wide-complex tachycardia in the ER and cardiology was consulted Sinus tachycardia Left bundle branch block --Normal TSH --Initial troponin negative --ECHO: Left ventricle is normal in size. Moderate concentric LVH. Basal septum is thickened and angulated consistent with sigmoid septum. Septal motion is consistent with conduction abnormality. Wall motion is otherwise normal. EF 60 to 60%. Grade 1 diastolic dysfunction. Aortic valve sclerosis moderate, without significant aortic valve stenosis. Focal calcification of the left coronary cusp. Mild mitral annular calcification. Moderate mitral regurgitation. Mitral regurgitation jet is eccentrically directed. Trace tricuspid regurgitation Serial troponins did not show any evidence of ACS Appreciate cardiology input and recommendation Started on metoprolol 25 mg BID Monitor and replace electrolytes as needed Conservative management Avoid QTc prolonging medications Added amlodipine 5 mg daily Blood pressure remains stable and denies any cardiac symptoms Bilateral shoulder pain Likely secondary to arthritis Pain is worse with movement Again she wants to try Tylenol only Constipation No abdominal distention and her pain Will try MiraLAX and suppository if needed (2) Right rib fracture: Plan: Management as above Does not have any shortness of breath (3) Generalized weakness: Plan: Secondary to comorbidities Will have PT and OT evaluation (4) CKD (chronic kidney disease) stage 4, GFR 15-29 ml/min: Plan: CKD IV Cr at baseline Avoid nephrotoxic agents as able Monitor renal function-creatinine remains stable at around 1.60 (5) Adjustment disorder with depressed mood: Plan: Bipolar disorder Continue home medications (6) Hypothyroidism: Plan: Continue levothyroxine Conjunctivitis Continue ophthalmic drops (7) Severe malnutrition: Plan: Severe protein calorie malnutrition Poor oral intake BMI 18 Dietitian consulted (8) Chronic pain syndrome: (9) COPD (chronic obstructive pulmonary disease): Plan: H/O tobacco use No signs of acute exacerbation Albuterol as needed Plan DVT Px: Heparin SQ CODE STATUS DNR/DNI Disposition PT OT prior to discharge Admission and Anticipated Discharge Date Admission Date: January 06, 2024 Subjective 01/09/2024 The patient was seen and examined in telemetry unit She has been complaining of more pain in multiple areas including sacral area, left shoulder and right chest wall Complains today of some shortness of breath but saturating normally on room air Denies any abdominal pain nausea or vomiting She has been dizzy with narcotic pain medications 01/10/2024 The patient was seen and examined in telemetry unit She complains to pain but does not want to take any narcotics pain medications which make her dizzy Has not had a bowel movement No abdominal pain and or distention Has been getting physical therapy and awaiting placement Review of Systems Review of Systems: All systems reviewed and are unremarkable except as noted below Physical Exam Physical Exam: Lying in bed with distress secondary to pain specially in the rib and also in the pelvis area Constitutional: + ill appearing and + thin Eyes: PERRL, conjunctivae normal, anicteric sclerae ENMT: external ear and nose normal, oropharynx normal Neck: trachea midline, no thyromegaly Respiratory: no respiratory distress Auscultation: + diminished lung sounds and + wheezes (Minimal); no crackles Cardiovascular: Rate/Rhythm: regular rate and regular rhythm; not tachycardic Heart Sounds: normal S1 and normal S2; no murmur Extremities: no edema Gastrointestinal (Abdomen): Inspection/Auscultation: normal bowel sounds; abdomen not distended Percussion/Palpation: abdomen soft; abdomen nontender Musculoskeletal: Has osteoarthritic changes involving the extremities but no acute arthritis Neurologic: Alert, awake and oriented x 3. Generally weak and lethargic. Lymphatic: no cervical or axillary lymphadenopathy Results & Data Results & Data Vital Signs (Past 12 Hours) Vital Signs Temp Pulse Resp BP Pulse Ox O2 Del Method 01/10/24 11:25 36.4 C L 76 18 126/72 93 Room Air 01/10/24 08:00 Room Air 01/10/24 07:25 36.4 C L 63 18 119/73 94 Room Air 01/10/24 02:53 36.6 C 52 L 18 91/59 L 96 Room Air Laboratory Results [facility] 01/10/24 05:55 Sodium 139 Potassium 4.7 Chloride 109 H Carbon Dioxide 24 BUN 41 H Creatinine 1.71 H Glucose 92 Calcium 9.4 Medications Administered Current Inpatient Medications Acetaminophen (Acetaminophen 500 Mg Tab) 500 mg PO Q6H PRN PRN Reason: Pain Stop: 02/05/24 19:08 Last Admin: 01/10/24 11:10 Dose: 500 mg Hydrocodone Bitart/Acetaminophen (Hydrocodone/Acetamophen 5/325mg Tab) 1 tab PO Q4H PRN PRN Reason: Pain Stop: 01/20/24 16:11 Last Admin: 01/09/24 07:57 Dose: 1 tab Albuterol (Albuterol Hfa 8 Gm Inhaler) 1 puffs INH QID PRN PRN Reason: Shortness Of Breath Stop: 02/05/24 19:08 Amlodipine Besylate (Amlodipine Besylate 5 Mg Tab) 5 mg PO QAM [facility] Stop: 02/07/24 10:29 Last Admin: 01/10/24 10:13 Dose: 5 mg Calcium/Vitamin D (Calcium 600mg + Vit D 400 Iu Tab) 1 tab PO BID [facility] Stop: 02/05/24 20:59 Last Admin: 01/10/24 10:12 Dose: 1 tab Cyanocobalamin (Cyanocobalamin (B-12) 500 Mcg Tablet) 1,000 mcg PO QAM [facility] Stop: 02/06/24 08:59 Last Admin: 01/10/24 10:11 Dose: 1,000 mcg Heparin Sodium (Porcine) (Heparin Sod 5,000 Unit/0.5 Ml Vial) 5,000 units SQ Q12 [facility] Stop: 02/06/24 20:59 Last Admin: 01/10/24 10:12 Dose: 5,000 units Hydromorphone HCl (Hydromorphone Inj 0.5 Mg/0.5 Ml Syr) 0.25 mg IV Q6H PRN PRN Reason: Pain Stop: 01/20/24 16:11 Labetalol HCl (Labetalol Hcl Iv 5 Mg/Ml 20ml) 10 mg IV Q6H PRN PRN Reason: Hypertension SBP>180orDBP>100 Stop: 02/06/24 14:02 Lamotrigine (Lamotrigine 25 Mg Tab) 25 mg PO BID [facility]; Protocol Stop: 02/05/24 20:59 Last Admin: 01/10/24 10:10 Dose: 25 mg Levothyroxine Sodium (Levothyroxine Sodium 88 Mcg Tablet) 88 mcg PO DAILYBB [facility] Stop: 02/06/24 06:29 Last Admin: 01/10/24 05:32 Dose: 88 mcg Lidocaine (Lidocaine 5% 1 Patch) [facility] Stop[facility] 02/09/24 08:59 Last Admin: 01/10/24 10:11 Dose: 1 patch Lorazepam (Lorazepam 0.5 Mg Tab) 0.5 mg PO TID PRN PRN Reason: Anxiety Stop: 02/05/24 19:08 Magnesium Oxide (Magnesium Oxide 400 Mg Tab) 400 mg PO [facility] Stop: 02/06/24 14:59 Last Admin: 01/10/24 10:12 Dose: 400 mg Melatonin (Melatonin 3 Mg Tab) 3 mg PO [facility] Stop: 02/05/24 20:59 Last Admin: 01/09/24 19:51 Dose: 3 mg Metoprolol Succinate (Metoprolol Succ 50mg Ext Rel Tab) 50 mg PO [facility] Stop: 02/08/24 09:59 Last Admin: 01/10/24 10:13 Dose: 50 mg Mirtazapine (Mirtazapine Tab 15 Mg Tab) 7.5 mg PO [facility] Stop: 02/05/24 20:59 Last Admin: 01/09/24 19:51 Dose: 7.5 mg Miscellaneous (Remove Lidoderm Patch) 1 each N/A DAILY@2100 [facility] Stop: 02/08/24 20:59 Last Admin: 01/09/24 19:52 Dose: 1 each Neomycin/Polymyxin/Gramicidin (Neomycin/Polymyxin/Gramicidin 10 Ml Btl) 1 drops OPR TID [facility] Stop: 02/05/24 20:59 Last Admin: 01/10/24 10:13 Dose: 1 drops Nitroglycerin (Nitroglycerin Sl 0.4 Mg/Tab Tab) 0.4 mg SL Q5M PRN PRN Reason: Chest Pain Stop: 02/06/24 12:29 Polyethylene Glycol (Polyethylene (Miralax) 17 Gm Pack) 17 gm PO DAILY [facility] Stop: 02/09/24 10:59 Last Admin: 01/10/24 11:23 Dose: 17 gm (6) Hypothyroidism Hypothyroidism type: unspecified Qualified Code(s): E03.9 - Hypothyroidism, unspecified (9) COPD (chronic obstructive pulmonary disease) COPD type: unspecified COPD Qualified Code(s): J44.9 - Chronic obstructive pulmonary disease, unspecified
[2024-01-11 10:30] LABS: Basophils # (auto) 0.04 K/uL (0.00-0.20); Basophils % (auto) 0.6 %; Eosinophils # (auto) 0.13 K/uL (0.00-0.50); Eosinophils % (auto) 1.9 %; Hematocrit (blood only) 40.2 % (37.0-47.0); Hemoglobin 12.4 g/dl (12.0-16.0); Immature Granulocytes # (auto) 0.02 K/uL (0.01-0.20); Immature Granulocytes % (auto) 0.3 %; Lymphocytes # (auto) 1.06 K/uL (1.20-3.40); Lymphocytes % (auto) 15.5 %; Mean Corpuscular Hemoglobin 28.8 pg (25.0-34.0); Mean Corpuscular Hgb Conc 30.8 g/dL (32.0-36.0); Mean Corpuscular Volume 93.5 fL (80.0-100.0); Mean Platelet Volume 9.5 fL (9.4-12.4); Monocytes # (auto) 0.37 K/uL (0.11-0.59); Monocytes % (auto) 5.4 %; Neutrophils # (auto) 5.21 K/uL (1.40-6.50); Neutrophils % (auto) 76.3 %; Platelet Count 286 K/uL (130-400); RDW Coefficient of Variation 13.5 % (11.5-14.5); RDW Standard Deviation 45.9 fL (36.4-46.3); White Blood Count 6.83 K/ul (4.8-10.8)
[2024-01-11 10:49] LABS: Calcium 10.3 mg/dl (8.6-10.3); Creatinine Clr Calc Pharmacy 16.9 ml/min; Est GFR (African American) 27.2 ml/min; Est GFR (Non-African American) 23.5 ml/min; Magnesium 2.2 mg/dl (1.7-2.4); Potassium 4.8 mmol/L (3.5-5.1)
[2024-01-11] MEDS: DICLOFENAC SOD 1% GEL 100 GM TUBE EXT SCH (13:43)
--- NOTE | 2024-01-11 13:57 | Hospitalist Progress Note ---
Date of Service January 11, 2024 Assessment & Plan (1) Sacral fracture: Plan: Nondisplaced Right Sacral Ala Fracture Acute mildly displaced right ninth rib fracture H/O recurrent Falls Chronic Pain/chronic neuropathy --CT:Acute mildly displaced posterior right ninth rib fracture. Age indeterminate nondisplaced right sacral ala fracture. --CXR:No acute cardiopulmonary findings. No change in appearance of the chest. --CT head:No acute intracranial findings. No change in appearance of the brain. Exam mildly compromised by motion artifact. No calvarial fractures identified. Fall precautions, pain control Orthopedics consulted--appreciate input and recommendation for physical therapy and pain control. Will evaluate during follow-up in 2 to 4 weeks with AP radiographs of the pelvis PT OT as able Will benefit from rehab placement Complains pain but dizzy with narcotic pain medications Will try lidocaine patch And intravenous Tylenol Strongly advised to participate in PT and OT-she agrees to participate more in physical therapy Remains reasonably stable and wants Tylenol for pain control Pain seems to be reasonably controlled Remains medically stable and does not want to take any narcotics because of di zziness Will need more physical therapy and discharge when there is a facility for her to go Hypertensive urgency Atypical Chest pain Has had transient wide-complex tachycardia in the ER and cardiology was consulted Sinus tachycardia Left bundle branch block --Normal TSH --Initial troponin negative --ECHO: Left ventricle is normal in size. Moderate concentric LVH. Basal septum is thickened and angulated consistent with sigmoid septum. Septal motion is consistent with conduction abnormality. Wall motion is otherwise normal. EF 60 to 60%. Grade 1 diastolic dysfunction. Aortic valve sclerosis moderate, without significant aortic valve stenosis. Focal calcification of the left coronary cusp. Mild mitral annular calcification. Moderate mitral regurgitation. Mitral regurgitation jet is eccentrically directed. Trace tricuspid regurgitation Serial troponins did not show any evidence of ACS Appreciate cardiology input and recommendation Started on metoprolol 25 mg BID Monitor and replace electrolytes as needed Conservative management Avoid QTc prolonging medications Added amlodipine 5 mg daily Blood pressure remains stable and denies any cardiac symptoms Bilateral shoulder pain Likely secondary to arthritis Pain is worse with movement Again she wants to try Tylenol only Diclofenac sodium has been given Constipation No abdominal distention and her pain Will try MiraLAX and suppository if needed (2) Right rib fracture: Plan: Management as above Does not have any shortness of breath (3) Generalized weakness: Plan: Secondary to comorbidities Will have PT and OT evaluation (4) CKD (chronic kidney disease) stage 4, GFR 15-29 ml/min: Plan: CKD IV Cr at baseline Avoid nephrotoxic agents as able Monitor renal function-creatinine remains stable at around 1.60 (5) Adjustment disorder with depressed mood: Plan: Bipolar disorder Continue home medications (6) Hypothyroidism: Plan: Continue levothyroxine Conjunctivitis Continue ophthalmic drops (7) Severe malnutrition: Plan: Severe protein calorie malnutrition Poor oral intake BMI 18 Dietitian consulted (8) Chronic pain syndrome: (9) COPD (chronic obstructive pulmonary disease): Plan: H/O tobacco use No signs of acute exacerbation Albuterol as needed Plan DVT Px: Heparin SQ CODE STATUS DNR/DNI Disposition PT OT prior to discharge Remains medically stable Admission and Anticipated Discharge Date Admission Date: January 06, 2024 Subjective 01/09/2024 The patient was seen and examined in telemetry unit She has been complaining of more pain in multiple areas including sacral area, left shoulder and right chest wall Complains today of some shortness of breath but saturating normally on room air Denies any abdominal pain nausea or vomiting She has been dizzy with narcotic pain medications 01/10/2024 The patient was seen and examined in telemetry unit She complains to pain but does not want to take any narcotics pain medications which make her dizzy Has not had a bowel movement No abdominal pain and or distention Has been getting physical therapy and awaiting placement 01/11/2020 The patient was seen and examined in telemetry unit She has been feeling much better but still complains of pain in the shoulders with movement Back pain is reasonable she does not want to take any narcotics Advised to have more physical therapy and awaiting placement Review of Systems Review of Systems: All systems reviewed and are unremarkable except as noted below Physical Exam Physical Exam: Lying in bed with distress secondary to pain specially in the rib and also in the pelvis area Constitutional: + ill appearing and + thin Eyes: PERRL, conjunctivae normal, anicteric sclerae ENMT: external ear and nose normal, oropharynx normal Neck: trachea midline, no thyromegaly Respiratory: no respiratory distress Auscultation: + diminished lung sounds and + wheezes (Minimal); no crackles Cardiovascular: Rate/Rhythm: regular rate and regular rhythm; not tachycardic Heart Sounds: normal S1 and normal S2; no murmur Extremities: no edema Gastrointestinal (Abdomen): Inspection/Auscultation: normal bowel sounds; abdomen not distended Percussion/Palpation: abdomen soft; abdomen nontender Musculoskeletal: Does have mild arthritis involving multiple joints Neurologic: Alert, awake and oriented. Generally very weak and lethargic Lymphatic: no cervical or axillary lymphadenopathy Results & Data Results & Data Vital Signs (Past 12 Hours) Vital Signs Temp Pulse Pulse Resp BP Pulse Ox O2 Del Method 01/11/24 11:30 36.8 C 81 16 119/60 95 Room Air 01/11/24 09:00 59 L 01/11/24 09:00 Room Air 01/11/24 07:04 36.5 C 70 18 101/64 96 Room Air 01/11/24 04:20 16 01/11/24 03:12 36.6 C 61 20 92/52 L 94 Room Air Laboratory Results Short CBC 01/11/24 Range/Units 10:11 WBC 6.83 (4.8-10.8) K/ul Hgb 12.4 (12.0-16.0) g/dl Hct 40.2 (37.0-47.0) % Plt Count 286 (130-400) K/uL BMP 01/11/24 10:12 Sodium 139 Potassium 4.8 Chloride 105 Carbon Dioxide 29 BUN 50 H Creatinine 1.92 H Glucose 116 H Calcium 10.3 Medications Administered Current Inpatient Medications Acetaminophen (Acetaminophen 500 Mg Tab) 500 mg PO Q6H PRN PRN Reason: Pain Stop: 02/05/24 19:08 Last Admin: 01/11/24 09:15 Dose: 500 mg Hydrocodone Bitart/Acetaminophen (Hydrocodone/Acetamophen 5/325mg Tab) 1 tab PO Q4H PRN PRN Reason: Pain Stop: 01/20/24 16:11 Last Admin: 01/11/24 05:44 Dose: 1 tab Albuterol (Albuterol Hfa 8 Gm Inhaler) 1 puffs INH QID PRN PRN Reason: Shortness Of Breath Stop: 02/05/24 19:08 Amlodipine Besylate (Amlodipine Besylate 5 Mg Tab) 5 mg PO QAM EDUARDO Stop: 02/07/24 10:29 Last Admin: 01/11/24 10:39 Dose: 5 mg Calcium/Vitamin D (Calcium 600mg + Vit D 400 Iu Tab) 1 tab PO BID [facility] Stop: 02/05/24 20:59 Last Admin: 01/11/24 10:39 Dose: 1 tab Cyanocobalamin (Cyanocobalamin (B-12) 500 Mcg Tablet) 1,000 mcg PO QAM [facility] Stop: 02/06/24 08:59 Last Admin: 01/11/24 10:39 Dose: 1,000 mcg Diclofenac Sodium (Diclofenac Sod 1% Gel 100 Gm Tube) 2 gm EXT TID [facility]; Protocol Stop: 02/10/24 13:59 Last Admin: 01/11/24 13:43 Dose: 2 gm Heparin Sodium (Porcine) (Heparin Sod 5,000 Unit/0.5 Ml Vial) 5,000 units SQ Q12 [facility] Stop: 02/06/24 20:59 Last Admin: 01/11/24 10:38 Dose: 5,000 units Hydromorphone HCl (Hydromorphone Inj 0.5 Mg/0.5 Ml Syr) 0.25 mg IV Q6H PRN PRN Reason: Pain Stop: 01/20/24 16:11 Labetalol HCl (Labetalol Hcl Iv 5 Mg/Ml 20ml) 10 mg IV Q6H PRN PRN Reason: Hypertension SBP>180orDBP>100 Stop: 02/06/24 14:02 Lamotrigine (Lamotrigine 25 Mg Tab) 25 mg PO BID [facility]; Protocol Stop: 02/05/24 20:59 Last Admin: 01/11/24 10:36 Dose: 25 mg Levothyroxine Sodium (Levothyroxine Sodium 88 Mcg Tablet) 88 mcg PO DAILYBB [facility] Stop: 02/06/24 06:29 Last Admin: 01/11/24 05:38 Dose: 88 mcg Lidocaine (Lidocaine 5% 1 Patch) 1 patch TD QAM [facility] Stop: 02/09/24 08:59 Last Admin: 01/11/24 10:35 Dose: 1 patch Lorazepam (Lorazepam 0.5 Mg Tab) 0.5 mg PO TID PRN PRN Reason: Anxiety Stop: 02/05/24 19:08 Magnesium Oxide (Magnesium Oxide 400 Mg Tab) 400 mg PO QAM [facility] Stop: 02/06/24 14:59 Last Admin: 01/11/24 10:38 Dose: 400 mg Melatonin (Melatonin 3 Mg Tab) 3 mg PO HS [facility] Stop: 02/05/24 20:59 Last Admin: 01/10/24 20:03 Dose: 3 mg Metoprolol Succinate (Metoprolol Succ 50mg Ext Rel Tab) 50 mg PO QAM [facility] Stop: 02/08/24 09:59 Last Admin: 01/11/24 10:37 Dose: 50 mg Mirtazapine (Mirtazapine Tab 15 Mg Tab) 7.5 mg PO HS [facility] Stop: 02/05/24 20:59 Last Admin: 01/10/24 20:04 Dose: 7.5 mg Miscellaneous (Remove Lidoderm Patch) 1 each N/A DAILY@2100 [facility] Stop: 02/08/24 20:59 Last Admin: 01/10/24 20:09 Dose: 1 each Neomycin/Polymyxin/Gramicidin (Neomycin/Polymyxin/Gramicidin 10 Ml Btl) 1 drops OPR TID EDUARDO Stop: 02/05/24 20:59 Last Admin: 01/11/24 13:41 Dose: 1 drops Nitroglycerin (Nitroglycerin Sl 0.4 Mg/Tab Tab) 0.4 mg SL Q5M PRN PRN Reason: Chest Pain Stop: 02/06/24 12:29 Polyethylene Glycol (Polyethylene (Miralax) 17 Gm Pack) 17 gm PO DAILY [facility] Stop: 02/09/24 10:59 Last Admin: 01/11/24 10:36 Dose: 17 gm (6) Hypothyroidism Hypothyroidism type: unspecified Qualified Code(s): E03.9 - Hypothyroidism, unspecified (9) COPD (chronic obstructive pulmonary disease) COPD type: unspecified COPD Qualified Code(s): J44.9 - Chronic obstructive pulmonary disease, unspecified
--- NOTE | 2024-01-12 16:36 | Hospitalist Progress Note ---
Date of Service January 12, 2024 Assessment & Plan (1) Sacral fracture: (2) Right rib fracture: (3) Generalized weakness: (4) CKD (chronic kidney disease) stage 4, GFR 15-29 ml/min: (5) Adjustment disorder with depressed mood: (6) Hypothyroidism: (7) Severe malnutrition: (8) Chronic pain syndrome: (9) COPD (chronic obstructive pulmonary disease): Plan Ms. 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 Ortho evaluated patient and plans for conservative management. Pending possible discharge tomorrow. #Nondisplaced Right Sacral Ala Fracture #Acute mildly displaced right ninth rib fracture #Recurrent Falls #Chronic Pain/chronic neuropathy --CT:Acute mildly displaced posterior right ninth rib fracture. Age indeterminate nondisplaced right sacral ala fracture. --CXR:No acute cardiopulmonary findings. No change in appearance of the chest. --CT head:No acute intracranial findings. No change in appearance of the brain. Exam mildly compromised by motion artifact. No calvarial fractures identified. Fall precautions, pain control Orthopedics consulted--appreciate input and recommendation for physical therapy and pain control. Will evaluate during follow-up in 2 to 4 weeks with [facility] radiographs of the pelvis PT OT as able Will benefit from rehab placement Complains pain but dizzy with narcotic pain medications Will try lidocaine patch And intravenous Tylenol Strongly advised to participate in PT and OT-she agrees to participate more in physical therapy Remains reasonably stable and wants Tylenol for pain control Pain seems to be reasonably controlled Remains medically stable and does not want to take any narcotics because of dizziness Will need more physical therapy and discharge when there is a facility for her to go #Hypertensive urgency *improved #history of orthostatic hypotension #Atypical Chest pain #[place] #Wide complex tachycardia #New LBBB --Normal TSH --Initial troponin negative --ECHO: Left ventricle is normal in size. Moderate concentric LVH. Basal septum is thickened and angulated consistent with sigmoid septum. Septal motion is consistent with conduction abnormality. Wall motion is otherwise normal. EF 60 to 60%. Grade 1 diastolic dysfunction. Aortic valve sclerosis moderate, without significant aortic valve stenosis. Focal calcification of the left coronary cusp. Mild mitral annular calcification. Moderate mitral regurgitation. Mitral regurgitation jet is eccentrically directed. Trace tricuspid regurgitation Serial troponins did not show any evidence of ACS Appreciate cardiology input and recommendation Started Metoprolol this admission, transitioned to XL formulation -Continue 50mg XLqam Monitor and replace electrolytes as needed Conservative management Avoid QTc prolonging medications Discontinued amlodipine 5 mg daily given relatively low blood pressures #KECIA on CKDIII -GFR in 30s usually, Cr 1.9 on 01/11 -Bolus of fluid ordered, likely prerenal iso hypotension Repeat BMP in am #Bilateral shoulder pain #Chronic arthralgias Likely secondary to arthritis Pain is worse with movement Again she wants to try Tylenol only Diclofenac sodium has been given #Bacterial Conjunctivitis Continue ophthalmic drops #Severe protein calorie malnutrition -BMI 18, thin, cachectic -Encourage PO intake, continue mirtazepine #Hypothyroidism TSH WNL -Continue home Synthroid #COPD with emphysema -Stable, albuterol prn #Bipolar d/o -Continue lamictal #Constipation No abdominal distention and her pain Will try MiraLAX and suppository if needed DVT Px: Heparin SQ CODE STATUS DNR/DNI Disposition PT OT prior to discharge Remains medically stable Admission and Anticipated Discharge Date Admission Date: January 06, 2024 Subjective patient was seen and examined in telemetry unit Reports chronic pain, but knows options are limited, offered trial of tylenol IV Physical Exam Constitutional: WD/WN, vitals as above thin frail nontoxic appearing Respiratory: normal respiratory effort, lungs clear to auscultation Cardiovascular: RRR, no murmur, no edema Results & Data Results & Data Vital Signs (Past 12 Hours) Vital Signs Temp Pulse Pulse Resp BP BP Pulse Ox 01/12/24 15:00 62 01/12/24 11:14 36.9 C 61 21 98/60 L 94 01/12/24 09:57 01/12/24 08:38 36.7 C 71 18 119/74 92 01/12/24 07:16 65 01/12/24 04:21 36.7 C 58 L 93/57 L 97 O2 Del Method 01/12/24 15:00 01/12/24 11:14 Room Air 01/12/24 09:57 Room Air 01/12/24 08:38 Room Air 01/12/24 07:16 01/12/24 04:21 Room Air Medications Administered Home Medications Medication Instructions Recorded Confirmed Last Taken lamotrigine 25 mg tablet (Lamictal) See Rx Instructions .Route .COMPLEX 08/12/20 01/06/24 02/19/22 acetaminophen 500 mg tablet 500 mg PO Q6H PRN Pain 08/26/20 01/06/24 02/19/22 (Tylenol Extra Strength) levothyroxine 88 mcg tablet 88 mcg PO QAM 12/09/20 01/06/24 02/19/22 (Synthroid) aripiprazole 2 mg tablet (Abilify) 2 mg QAM ##0 07/02/22 01/06/24 1 Day Ago ~07/01/22 lorazepam 0.5 mg tablet 0.5 mg PO BID PRN Anxiety 07/02/22 01/06/24 Unknown melatonin 3 mg tablet 3 mg HS ##0 07/02/22 01/06/24 Unknown neomycin 1.75 mg-polymyxin 10,000 1 drp OPR TID 07/02/22 01/06/24 Unknown unit-gramicidin 0.025mg/mL eye drops lamotrigine 100 mg tablet See Rx Instructions .Route .COMPLEX 01/06/24 01/06/24 Unknown mirtazapine 15 mg tablet 15 mg PO HS 01/06/24 01/06/24 Unknown Active Medications Generic Name Dose Route Start Last Admin Trade Name Freq PRN Reason Stop Dose Admin Acetaminophen 500 mg 01/06/24 19:09 01/12/24 14:51 Acetaminophen 500 Mg Tab PO 02/05/24 19:08 500 mg Q6H PRN Administration Pain Hydrocodone Bitart/Acetaminophen 1 tab 01/06/24 16:12 01/11/24 05:44 Hydrocodone/Acetamophen 5/325mg Tab PO 01/20/24 16:11 1 tab Q4H PRN Administration Pain Amlodipine Besylate 5 mg 01/08/24 10:30 01/11/24 10:39 Amlodipine Besylate 5 Mg Tab PO 02/07/24 10:29 5 mg QAM EDUARDO Administration Calcium/Vitamin D 1 tab 01/06/24 21:00 01/12/24 08:40 Calcium 600mg + Vit D 400 Iu Tab PO 02/05/24 20:59 1 tab BID EDUARDO Administration Cyanocobalamin 1,000 mcg 01/07/24 09:00 01/12/24 08:40 Cyanocobalamin (B-12) 500 Mcg Tablet PO 02/06/24 08:59 1,000 mcg QAM EDUARDO Administration Diclofenac Sodium 2 gm 01/11/24 14:00 01/12/24 14:46 Diclofenac Sod 1% Gel 100 Gm Tube EXT 02/10/24 13:59 Not Given TID EDUARDO Protocol Heparin Sodium (Porcine) 5,000 units 01/07/24 21:00 01/12/24 08:41 Heparin Sod 5,000 Unit/0.5 Ml Vial SQ 02/06/24 20:59 5,000 units Q12 EDUARDO Administration Lamotrigine 25 mg 01/06/24 21:00 01/12/24 08:41 Lamotrigine 25 Mg Tab PO 02/05/24 20:59 25 mg BID EDUARDO Administration Protocol Levothyroxine Sodium 88 mcg 01/07/24 06:30 01/12/24 05:30 Levothyroxine Sodium 88 Mcg Tablet PO 02/06/24 06:29 88 mcg DAILYBB EDUARDO Administration Lidocaine 1 patch 01/10/24 09:00 01/12/24 08:42 Lidocaine 5% 1 Patch TD 02/09/24 08:59 1 patch QAM EDUARDO Administration Magnesium Oxide 400 mg 01/07/24 15:00 01/12/24 08:42 Magnesium Oxide 400 Mg Tab PO 02/06/24 14:59 400 mg QAM EDUARDO Administration Melatonin 3 mg 01/06/24 21:00 01/11/24 20:12 Melatonin 3 Mg Tab PO 02/05/24 20:59 3 mg HS EDUARDO Administration Metoprolol Succinate 50 mg 01/09/24 10:00 01/12/24 08:42 Metoprolol Succ 50mg Ext Rel Tab PO 02/08/24 09:59 50 mg QAM EDUARDO Administration Mirtazapine 7.5 mg 01/06/24 21:00 01/11/24 20:13 Mirtazapine Tab 15 Mg Tab PO 02/05/24 20:59 7.5 mg HS EDUARDO Administration Miscellaneous 1 each 01/09/24 21:00 01/11/24 20:15 Remove Lidoderm Patch N/A 02/08/24 20:59 1 each DAILY@2100 EDUARDO Administration Neomycin/Polymyxin/Gramicidin 1 drops 01/06/24 21:00 01/12/24 14:51 Neomycin/Polymyxin/Gramicidin 10 Ml Btl OPR 02/05/24 20:59 1 drops TID EDUARDO Administration Polyethylene Glycol 17 gm 01/10/24 11:00 01/12/24 08:40 Polyethylene (Miralax) 17 Gm Pack PO 02/09/24 10:59 Not Given DAILY EDUARDO (6) Hypothyroidism Hypothyroidism type: unspecified Qualified Code(s): E03.9 - Hypothyroidism, unspecified (9) COPD (chronic obstructive pulmonary disease) COPD type: unspecified COPD Qualified Code(s): J44.9 - Chronic obstructive pulmonary disease, unspecified
[2024-01-12] MEDS: ACETAMINOPHEN 1,000 MG/100 ML VIAL IV STA (17:07)
[2024-01-12] MEDS: LACTATED RINGER'S 500 ML IV ONE (17:32)
[2024-01-13 06:46] LABS: Hematocrit (blood only) 34.5 % (37.0-47.0); Hemoglobin 11.2 g/dl (12.0-16.0); Mean Corpuscular Hemoglobin 30.1 pg (25.0-34.0); Mean Corpuscular Hgb Conc 32.5 g/dL (32.0-36.0); Mean Corpuscular Volume 92.7 fL (80.0-100.0); Mean Platelet Volume 9.9 fL (9.4-12.4); Platelet Count 260 K/uL (130-400); RDW Coefficient of Variation 13.6 % (11.5-14.5); RDW Standard Deviation 46.6 fL (36.4-46.3); Red Blood Count 3.72 M/uL (4.20-5.40); White Blood Count 6.48 K/ul (4.8-10.8)
[2024-01-13 07:00] LABS: BUN Creatinine Ratio 31.3 (10-20); Calcium 9.3 mg/dl (8.6-10.3); Creatinine Clr Calc Pharmacy 17.9 ml/min; Est GFR (African American) 33.9 ml/min; Est GFR (Non-African American) 29.3 ml/min; Magnesium 2.3 mg/dl (1.7-2.4); Phosphorus 3.1 mg/dl (2.5-4.9); Potassium 4.5 mmol/L (3.5-5.1)
[2024-01-13] MEDS ORDERED: oxyCODONE HCL IR 5 MG TAB (IMMEDIATE RELEASE) PO STA (08:51)
[2024-01-13] MEDS ORDERED: Nursing to Pharmacy Communication SCH (12:00)
[2024-01-13] MEDS: oxyCODONE HCL IR 5 MG TAB (IMMEDIATE RELEASE) PO STA (13:17)
--- NOTE | 2024-01-13 15:31 | Hospitalist Progress Note ---
Date of Service January 13, 2024 Assessment & Plan (1) Sacral fracture: (2) Right rib fracture: (3) Generalized weakness: (4) CKD (chronic kidney disease) stage 4, GFR 15-29 ml/min: (5) Adjustment disorder with depressed mood: (6) Hypothyroidism: (7) Severe malnutrition: (8) Chronic pain syndrome: (9) COPD (chronic obstructive pulmonary disease): Plan Ms. 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 Ortho evaluated patient and plans for conservative management. Patient willing to trial oxycodone low dose for pain management. Awaiting bed/transport for [facility], otherwise stable for discharge. #Nondisplaced Right Sacral Ala Fracture #Acute mildly displaced right ninth rib fracture #Recurrent Falls #Chronic Pain/chronic neuropathy --CT:Acute mildly displaced posterior right ninth rib fracture. Age indeterminate nondisplaced right sacral ala fracture. --CXR:No acute cardiopulmonary findings. No change in appearance of the chest. --CT head:No acute intracranial findings. No change in appearance of the brain. Exam mildly compromised by motion artifact. No calvarial fractures identified. Fall precautions, pain control Orthopedics consulted--appreciate input and recommendation for physical therapy and pain control. Will evaluate during follow-up in 2 to 4 weeks with AP radiographs of the pelvis PT OT: transfer to [facility] when bed available Remains medically stable Agreeable to trial of 2.5mg oxycodone for pain mgmt #Hypertensive urgency *improved #history of orthostatic hypotension #Atypical Chest pain #Torsades #Wide complex tachycardia #New LBBB --Normal TSH --Initial troponin negative --ECHO: Left ventricle is normal in size. Moderate concentric LVH. Basal septum is thickened and angulated consistent with sigmoid septum. Septal motion is consistent with conduction abnormality. Wall motion is otherwise normal. EF 60 to 60%. Grade 1 diastolic dysfunction. Aortic valve sclerosis moderate, without significant aortic valve stenosis. Focal calcification of the left coronary cusp. Mild mitral annular calcification. Moderate mitral regurgitation. Mitral regurgitation jet is eccentrically directed. Trace tricuspid regurgitation Serial troponins did not show any evidence of ACS Appreciate cardiology input and recommendation Started Metoprolol this admission, transitioned to XL formulation -Continue 50mg XLqam Monitor and replace electrolytes as needed Conservative management Avoid QTc prolonging medications Discontinued amlodipine 5 mg daily given relatively low blood pressures #KECIA on CKDIII -GFR in 30s usually, Cr 1.9 on 01/11 -Bolus of fluid ordered, likely prerenal iso hypotension Repeat BMP in am -Improved #Bilateral shoulder pain #Chronic arthralgias Likely secondary to arthritis Pain is worse with movement Continue tylenol Added low dose oxycodone, adjust as tolerated Diclofenac sodium has been given #Bacterial Conjunctivitis Continue ophthalmic drops,EOT 01/13 #Severe protein calorie malnutrition -BMI 18, thin, cachectic -Encourage PO intake, continue mirtazepine #Hypothyroidism TSH WNL -Continue home Synthroid #COPD with emphysema -Stable, albuterol prn #Bipolar d/o -Continue lamictal #Constipation No abdominal distention and her pain Will try MiraLAX and suppository if needed DVT Px: Heparin SQ CODE STATUS DNR/DNI Disposition PT OT--discharge to [facility] Remains medically stable Admission and Anticipated Discharge Date Admission Date: January 06, 2024 Subjective Patient evaluated at bedside Remains medically stable Patient interested in trying lowest dose oxycodone to aid in pain management Physical Exam Constitutional: WD/WN, vitals as above Respiratory: normal respiratory effort, lungs clear to auscultation Cardiovascular: RRR, no murmur, no edema Gastrointestinal (Abdomen): normal bowel sounds, soft, nontender, no hepatosplenomegaly Results & Data Results & Data Vital Signs (Past 12 Hours) Vital Signs Temp Pulse Pulse Resp BP Pulse Ox O2 Del Method 01/13/24 12:25 36.3 C L 72 18 134/80 92 Room Air 01/13/24 10:01 Room Air 01/13/24 08:00 60 01/13/24 08:00 95 Room Air 01/13/24 07:58 36.8 C 69 20 128/70 Laboratory Results Short CBC 01/13/24 Range/Units 05:56 WBC 6.48 (4.8-10.8) K/ul Hgb 11.2 L (12.0-16.0) g/dl Hct 34.5 L (37.0-47.0) % Plt Count 260 (130-400) K/uL BMP 01/13/24 05:56 Sodium 140 Potassium 4.5 Chloride 110 H Carbon Dioxide 23 BUN 50 H Creatinine 1.60 H D Glucose 100 H Calcium 9.3 Medications Administered Home Medications Medication Instructions Recorded Confirmed Last Taken lamotrigine 25 mg tablet (Lamictal) See Rx Instructions .Route .COMPLEX 08/12/20 01/06/24 02/19/22 acetaminophen 500 mg tablet 500 mg PO Q6H PRN Pain 08/26/20 01/06/24 02/19/22 (Tylenol Extra Strength) levothyroxine 88 mcg tablet 88 mcg PO QAM 12/09/20 01/06/24 02/19/22 (Synthroid) aripiprazole 2 mg tablet (Abilify) 2 mg QAM ##0 07/02/22 01/06/24 1 Day Ago ~07/01/22 lorazepam 0.5 mg tablet 0.5 mg PO BID PRN Anxiety 07/02/22 01/06/24 Unknown melatonin 3 mg tablet 3 mg HS ##0 07/02/22 01/06/24 Unknown neomycin 1.75 mg-polymyxin 10,000 1 drp OPR TID 07/02/22 01/06/24 Unknown unit-gramicidin 0.025mg/mL eye drops lamotrigine 100 mg tablet See Rx Instructions .Route .COMPLEX 01/06/24 01/06/24 Unknown mirtazapine 15 mg tablet 15 mg PO HS 01/06/24 01/06/24 Unknown Active Medications Generic Name Dose Route Start Last Admin Trade Name Freq PRN Reason Stop Dose Admin Acetaminophen 500 mg 01/06/24 19:09 01/13/24 05:33 Acetaminophen 500 Mg Tab PO 02/05/24 19:08 500 mg Q6H PRN Administration Pain Amlodipine Besylate 5 mg 01/08/24 10:30 01/11/24 10:39 Amlodipine Besylate 5 Mg Tab PO 02/07/24 10:29 5 mg QAM EDUARDO Administration Calcium/Vitamin D 1 tab 01/06/24 21:00 01/13/24 08:33 Calcium 600mg + Vit D 400 Iu Tab PO 02/05/24 20:59 1 tab BID EDUARDO Administration Cyanocobalamin 1,000 mcg 01/07/24 09:00 01/13/24 08:33 Cyanocobalamin (B-12) 500 Mcg Tablet PO 02/06/24 08:59 1,000 mcg QAM EDUARDO Administration Diclofenac Sodium 2 gm 01/11/24 14:00 01/13/24 13:17 Diclofenac Sod 1% Gel 100 Gm Tube EXT 02/10/24 13:59 Not Given TID EDUARDO Protocol Heparin Sodium (Porcine) 5,000 units 01/07/24 21:00 01/13/24 08:33 Heparin Sod 5,000 Unit/0.5 Ml Vial SQ 02/06/24 20:59 5,000 units Q12 EDUARDO Administration Lamotrigine 25 mg 01/06/24 21:00 01/13/24 08:34 Lamotrigine 25 Mg Tab PO 02/05/24 20:59 25 mg BID EDUARDO Administration Protocol Levothyroxine Sodium 88 mcg 01/07/24 06:30 01/13/24 05:33 Levothyroxine Sodium 88 Mcg Tablet PO 02/06/24 06:29 88 mcg DAILYBB EDUARDO Administration Lidocaine 1 patch 01/10/24 09:00 01/13/24 08:34 Lidocaine 5% 1 Patch TD 02/09/24 08:59 1 patch QAM EDUARDO Administration Magnesium Oxide 400 mg 01/07/24 15:00 01/13/24 08:34 Magnesium Oxide 400 Mg Tab PO 02/06/24 14:59 400 mg QAM EDUARDO Administration Melatonin 3 mg 01/06/24 21:00 01/12/24 20:09 Melatonin 3 Mg Tab PO 02/05/24 20:59 3 mg HS EDUARDO Administration Metoprolol Succinate 50 mg 01/09/24 10:00 01/13/24 08:34 Metoprolol Succ 50mg Ext Rel Tab PO 02/08/24 09:59 50 mg QAM EDUARDO Administration Mirtazapine 7.5 mg 01/06/24 21:00 01/12/24 21:24 Mirtazapine Tab 15 Mg Tab PO 02/05/24 20:59 7.5 mg HS EDUARDO Administration Miscellaneous 1 each 01/09/24 21:00 01/12/24 20:11 Remove Lidoderm Patch N/A 02/08/24 20:59 1 each DAILY@2100 EDUARDO Administration Neomycin/Polymyxin/Gramicidin 1 drops 01/06/24 21:00 01/13/24 13:17 Neomycin/Polymyxin/Gramicidin 10 Ml Btl OPR 02/05/24 20:59 1 drops TID EDUARDO Administration Polyethylene Glycol 17 gm 01/10/24 11:00 01/13/24 08:32 Polyethylene (Miralax) 17 Gm Pack PO 02/09/24 10:59 Not Given DAILY EDUARDO (6) Hypothyroidism Hypothyroidism type: unspecified Qualified Code(s): E03.9 - Hypothyroidism, unspecified (9) COPD (chronic obstructive pulmonary disease) COPD type: unspecified COPD Qualified Code(s): J44.9 - Chronic obstructive pulmonary disease, unspecified
[2024-01-13] MEDS: oxyCODONE HCL IR 5 MG TAB (IMMEDIATE RELEASE) PO PRN (21:26)
[2024-01-14] MEDS ORDERED: oxyCODONE/ACETAMINOPHEN 5mg/325mg TAB PO PRN ×2 (11:59)
--- NOTE | 2024-01-14 15:18 | Discharge Summary ---
Discharge Summary Date of Service January 14, 2024 Notes For Next Care Provider Consider palliative consult discussions for pain management Medication Changes From Visit -Metoprolol XL 50mg daily -Percocet 5mg q12 prn given ongoing concerns regarding chronic pain Admission HPI Per Admitting Provider She is an 83-year-old female with significant past medical history of emphysema, tobacco abuse, chronic kidney disease stage IV, adjustment disorder with depressed mood, hypothyroidism, chronic pain syndrome, history of malignant tumor of bladder and kidney apparently was brought in from [facility] with recurrent falls and pain. She has had a fall about 1 week ago and has not been eating or drinking much for the last few days. She has had another fall yesterday and has been complaining of more pain at the pelvis and also rib area. She has been generally very weak and lethargic and complaining of pain with ambulation. Imaging studies showed she has acute mildly displaced posterior right ninth rib fracture and also age indeterminate none displaced right sacral ala fracture. Her CT scan of the head remained unremarkable and her blood tests have been unremarkable too. She was admitted to control pain and increase mobility. Admission Exam Per Admitting Provider Physical Exam: Lying in bed with distress secondary to pain specially in the rib and also in the pelvis area Constitutional: + ill appearing and + thin Eyes: PERRL, conjunctivae normal, anicteric sclerae ENMT: external ear and nose normal, oropharynx normal Neck: trachea midline, no thyromegaly Respiratory: no respiratory distress Auscultation: + diminished lung sounds and + wheezes (Minimal); no crackles Cardiovascular: Rate/Rhythm: regular rate and regular rhythm; not tachycardic Heart Sounds: normal S1 and normal S2; no murmur Extremities: no edema Gastrointestinal (Abdomen): Inspection/Auscultation: normal bowel sounds; abdomen not distended Percussion/Palpation: abdomen soft; abdomen nontender Musculoskeletal: No acute arthritis involving any of the joint Neurologic: Alert and awake. Generally anxious and weak. No focal neurodeficit Lymphatic: no cervical or axillary lymphadenopathy Principal Dx & Hospital Course #1 = Principal Diagnosis (1) Sacral fracture: (2) Right rib fracture: (3) Generalized weakness: (4) CKD (chronic kidney disease) stage 4, GFR 15-29 ml/min: (5) Adjustment disorder with depressed mood: (6) Hypothyroidism: (7) Severe malnutrition: (8) Chronic pain syndrome: (9) COPD (chronic obstructive pulmonary disease): Plan Ms. 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 Patient's course complicated by hypertension and new left bundle branch block/arrhythmia, for which she was started on Metoprolol XL 50mg qam. She experienced notable hypotension with additional blood pressure agents, therefore amlodipine discontinued. Patient's pain difficult to control given limited options with age and issues with dizziness. She is agreeable to try tylenol/oxy combination in hopes to less the degree of pain in shoulders and ribs in order to participate with rehab. On day of discharge, patient with chronic pain concerns that will require further outpatient evaluation. Patient denies chest pain, shortness or breath or other acute concerns. #Nondisplaced Right Sacral Ala Fracture #Acute mildly displaced right ninth rib fracture #Recurrent Falls #Chronic Pain/chronic neuropathy --CT:Acute mildly displaced posterior right ninth rib fracture. Age indeterminate nondisplaced right sacral ala fracture. --CXR:No acute cardiopulmonary findings. No change in appearance of the chest. --CT head:No acute intracranial findings. No change in appearance of the brain. Exam mildly compromised by motion artifact. No calvarial fractures identified. Fall precautions, pain control Orthopedics consulted--appreciate input and recommendation for physical therapy and pain control. Plan for follow-up in 2 to 4 weeks with [facility] radiographs of the pelvis PT OT: transfer to [facility] when bed available Remains medically stable Agreeable to trial of 5mg percocet q12h for pain mgmt #Hypertensive urgency *improved #history of orthostatic hypotension #Atypical Chest pain #Torsades #Wide complex tachycardia #New LBBB --Normal TSH --Initial troponin negative --ECHO: Left ventricle is normal in size. Moderate concentric LVH. Basal septum is thickened and angulated consistent with sigmoid septum. Septal motion is consistent with conduction abnormality. Wall motion is otherwise normal. EF 60 to 60%. Grade 1 diastolic dysfunction. Aortic valve sclerosis moderate, without significant aortic valve stenosis. Focal calcification of the left coronary cusp. Mild mitral annular calcification. Moderate mitral regurgitation. Mitral regurgitation jet is eccentrically directed. Trace tricuspid regurgitation Serial troponins did not show any evidence of ACS Appreciate cardiology input and recommendation Started Metoprolol this admission, transitioned to XL formulation -Continue 50mg Toprol XLqam Monitor and replace electrolytes as needed Conservative management Avoid QTc prolonging medications Discontinued amlodipine 5 mg daily given relatively low blood pressures #KECIA on CKDIII -GFR in 30s usually, Cr 1.9 on 01/11 -Improved #Bilateral shoulder pain #Chronic arthralgias Likely secondary to arthritis Pain is worse with movement Continue tylenol and Percocet prn Diclofenac sodium has been given #Bacterial Conjunctivitis Completed ophthalmic drops,EOT 01/13 #Severe protein calorie malnutrition -BMI 18, thin, cachectic -Encourage PO intake, continue mirtazepine #Hypothyroidism TSH WNL -Continue home Synthroid #COPD with emphysema -Stable, albuterol prn #Bipolar d/o -Continue lamictal Discharge Exam Constitutional WD/WN, vitals as above (endorsing pain, stating baseline chronic pain ) Respiratory normal respiratory effort, lungs clear to auscultation Cardiovascular RRR, no murmur, no edema Gastrointestinal (Abdomen) normal bowel sounds, soft, nontender, no hepatosplenomegaly Updated Medication List Medication Instructions Recorded Confirmed Type lamotrigine 25 mg tablet (Lamictal) See Rx Instructions .Route .COMPLEX 08/12/20 01/06/24 History acetaminophen 500 mg tablet 500 mg PO Q6H PRN Pain 08/26/20 01/06/24 History (Tylenol Extra Strength) levothyroxine 88 mcg tablet 88 mcg PO QAM 12/09/20 01/06/24 History (Synthroid) aripiprazole 2 mg tablet (Abilify) 2 mg QAM ##0 07/02/22 01/06/24 History lorazepam 0.5 mg tablet 0.5 mg PO BID PRN Anxiety 07/02/22 01/06/24 History melatonin 3 mg tablet 3 mg HS ##0 07/02/22 01/06/24 History lamotrigine 100 mg tablet See Rx Instructions .Route .COMPLEX 01/06/24 01/06/24 History mirtazapine 15 mg tablet 15 mg PO HS 01/06/24 01/06/24 History albuterol sulfate 90 mcg/actuation 1 puff inhalation QID PRN 01/14/24 Rx aerosol inhaler (Ventolin HFA) shortness of breath or wheezing #6.7 grams cyanocobalamin (vitamin B-12) 500 1,000 mcg (2 x 500 mcg) PO QAM #30 01/14/24 Rx mcg tablet tabs metoprolol succinate 50 mg 50 mg PO QAM #30 tabs 01/14/24 Rx tablet,extended release 24 hr mirtazapine 15 mg tablet 7.5 mg (1/2 x 15 mg) PO HS #30 tabs 01/14/24 Rx oxycodone-acetaminophen 5 mg-325 1 tab PO Q12H PRN pain #14 tabs 01/14/24 Rx mg tablet (Percocet) Hospital Stay Data Consultations 01/07/24 08:18 Consult Orthopedic Surgery Routine 01/07/24 11:20 Consult Cardiology Routine Diagnostic Imagining Performed 01/06/24 10:48 CT abd pelvis wo con Stat 01/06/24 10:49 CT head/brain wo con Stat Pending Results Patient Have Any Pending Studies at Discharge: No Discharge Instructions Given to Patient (Per Discharging Provider) Ms. Leiva is an 83 year old womanwho was admitted on 01/06 after sustaining a fall and found to be in hypertensive urgency. She sustained a nondisplaced right sacral ala fracture and displaced right rib fracture. Ortho evaluated patient and plans for conservative management and rehab/ Patient's course complicated by hypertension and new left bundle branch block/arrhytmia, for which she was started on Metoprolol XL 50mg qam. She experienced notable hypotension with additional blood pressure agents, therefore amlodipine discontinued. Patient's pain difficult to control given limited options with age and issues with dizziness. She is agreeable to try tylenol/oxy combination in hopes to less the degree of pain in shoulders and ribs in order to participate with rehab. On day of discharge, patient with chronic pain concerns that will require further outpatient evaluation. Patient denies chest pain, shortness or breath or other acute concerns. #Nondisplaced Right Sacral Ala Fracture #Acute mildly displaced right ninth rib fracture #Recurrent Falls #Chronic Pain/chronic neuropathy Fall precautions, pain control Orthopedics consulted--appreciate input and recommendation for physical therapy and pain control. Follow up with Ortho in 2-4 weeks arleth stable Continue Percocet 5mg two times daily, adjust as needed for rehab purposes. #Hypertension #Atypical Chest pain #Torsades de pointes #Wide complex tachycardia #New LBBB -Continue 50mg Metoprolol XL qam s needed Conservative management Avoid QTc prolonging medications Discontinued amlodipine 5 mg daily given relatively low blood pressures #KECIA on CKDIII *improved, stable -GFR in 30s usually, Cr 1.7 on 01/11 Encourage hydration #Bilateral shoulder pain #Chronic arthralgias Likely secondary to arthritis Pain is worse with movement Continue tylenol and percocet as needed #Bacterial Conjunctivitis Completed ophthalmic drops,EOT 01/13 #Severe protein calorie malnutrition -BMI 18, thin, cachectic -Encourage PO intake, continue mirtazepine #Hypothyroidism TSH WNL -Continue home Synthroid #COPD with emphysema -Stable, albuterol prn #Bipolar d/o -Continue lamictal #Constipation No abdominal distention and her pain Total Time Total Time Spent Total Time Spent (In Minutes): 45
== END 2024-01-14 16:21 | DRG 542 ==
LOC: ED 09:34 → EDINP 16:09 → SUATTDRO 16:09 → 2W 01-07 16:11 → 2S 01-08 15:53
DX: M19.012 Primary osteoarthritis, left shoulder; H10.9 Unspecified conjunctivitis; M80.0AXA Age-related osteoporosis with current pathological fracture, other site, initial encounter for fracture; I49.01 Ventricular fibrillation; F43.21 Adjustment disorder with depressed mood; W18.30XA Fall on same level, unspecified, initial encounter; F31.9 Bipolar disorder, unspecified; E43 Unspecified severe protein-calorie malnutrition; N17.9 Acute kidney failure, unspecified; J43.9 Emphysema, unspecified; I16.0 Hypertensive urgency; I47.21 Torsades de pointes; Y92.89 Other specified places as the place of occurrence of the external cause; Z88.0 Allergy status to penicillin; M19.011 Primary osteoarthritis, right shoulder; Z88.8 Allergy status to other drugs, medicaments and biological substances; Z87.891 Personal history of nicotine dependence; I44.7 Left bundle-branch block, unspecified; E03.9 Hypothyroidism, unspecified; N18.4 Chronic kidney disease, stage 4 (severe); M80.08XA Age-related osteoporosis with current pathological fracture, vertebra(e), initial encounter for fracture; Z68.1 Body mass index [BMI] 19.9 or less, adult; I44.0 Atrioventricular block, first degree; G62.9 Polyneuropathy, unspecified

== ENCOUNTER 2024-02-06 13:44 | Inpatient (IN) ==
--- NOTE | 2024-02-06 13:58 | Emergency Department Note ---
Impression & Plan Acetabular fracture, UTI (urinary tract infection), Recurrent falls, Weakness ED Provider Note NAME: ANNA LUA AGE: 83 SEX: F : 1940 ARRIVES VIA: Ambulance INFORMANT: Patient ED PROVIDER(S): Vladimir Saavedra DO CHIEF COMPLAINT: recurrent falls HPI: Patient is an 83-year-old female with a past medical history of bipolar disorder, torsades, wide-complex tachycardia, depression, UTI who presents the ER following recurrent falls. She has fallen multiple times this week. She notes she is having some right-sided belly pain after a fall several days ago. She also complains of left knee pain and left hip pain. Denies any head pain or neck pain. No chest pain or shortness of breath. No focal weakness or numbness in the arms or legs. No other exacerbating or remitting factors. ADDITIONAL HISTORY OBTAINED: Per HPI Chronic Medical/Social Conditions Affecting Care: Per HPI PAST MEDICAL HISTORY:See Below PAST SURGICAL HISTORY:See Below FAMILY HISTORY:See Below SOCIAL HISTORY:See Below HOME MEDICATIONS:See Below ALLERGIES:See Below VITALS:See Below PHYSICAL EXAMINATION: GENERAL: Sitting up in bed, alert, well appearing, well nourished, no distress, non-toxic EYE EXAM: normal conjunctiva. PERRL and EOM's grossly intact. HEAD: NC/AT OROPHARYNX: no exudate, no erythema, lips, buccal mucosa, and tongue normal and mucous membranes are moist NECK: supple, no nuchal rigidity, no adenopathy, non-tender LUNGS: Clear to auscultation. Normal chest wall mechanics HEART: no murmurs, S1 normal and S2 normal ABDOMEN: abdomen soft, non-tender, normo-active bowel sounds, no masses, no rebound or guarding. BACK: Back is symmetrical on inspection and there is no deformity, no midline tenderness, no CVA tenderness. UPPER EXTREMITIES: upper extremities are grossly normal. LOWER EXTREMITIES: No tenderness on palpation of bilateral lower extremities with exception of left hip. Significant pain with range of motion of the left hip. DPs are 2 out of 4. NEURO EXAM: Normal sensorium, cranial nerves II-XII grossly intact, normal speech, no gross weakness of arms, no gross weakness of legs. MEDICAL DECISION MAKING: Patient is a 83-year-old female who presents ER for above-stated complaint. IV was established blood work was obtained. Labs show no significant leukocytosis or anemia. BMP with a CO2 of 20. Creatinine 1.4. LFTs bilirubin and lipase was unremarkable. UA was consistent with a UTI. Stool was negative. COVID- negative. CT abdomen pelvis does show a left acetabular fracture. CT of the head was negative. Patient was given IV Rocephin. Updated bedside. Discussed with Ortho and the [facility]ics will eval tomorrow. Patient was given IV pain medications while in the ER and updated bedside. Consults/Care Managements Discussions: Per [facility] Triage Nursing notes reviewed. Limited review of prior medical records performed Vital Signs: reviewed and remarkable for no significant abnormalities Differential diagnosis: Differential diagnoses include major intracranial, cervical, spinal, thoracic, abdominal, pelvic and neurologic injury. Fracture, contusion, sprain, strain, laceration, abrasions included as well. ER treatment provided: See below Diagnostics interpreted by me include EKG and cardiac monitoring as listed below: -Cardiac Monitoring: An order was placed for continuous cardiac monitoring. The monitor shows a rate of 90 with sinus rhythm. -ECG: none -Laboratory studies:Interpreted by me as stated above in MDM and shown below. Imaging studies: Xrays: As interpreted by me: Portable AP upright 1 view of the chest shows no focal Lutrate X-ray of the knee hip and pelvis was unremarkable. CTs show: CT abdomen pelvis cervical spine and head shows a left acetabular fracture and a mild acute/subacute T1 fracture. Procedures:none Critical Care: None Past Med/Surg History Medical History (Updated 02/06/24 @ 21:08 by Vladimir Saavedra DO) UTI (urinary tract infection) Generalized pain Intractable pain Hypothyroidism Bipolar disorder Neuropathy CKD (chronic kidney disease), stage IV S/p nephrectomy Tobacco abuse COPD (chronic obstructive pulmonary disease) Osteoarthritis Malignant tumor of urinary bladder Malignant tumor of kidney COPD (chronic obstructive pulmonary disease) Dizziness Altered mental status History of kidney cancer Bladder cancer CKD (chronic kidney disease), stage IV Tobacco abuse Urothelial cancer (~2010) Surgical History History of partial hysterectomy H/O dilation and curettage Hx of total knee arthroplasty S/p nephrectomy "Left" H/O: hysterectomy Family History Aunt Heart disease [place] in her 50s Mother Breast cancer Father Prostate cancer Social History Smoking Status: Former smoker Tobacco Type: Cigarettes Cigarettes Per Day: 5; Second Hand Exposure: No; Do You Dip or Chew Tobacco: No; Hx Alcohol Use: No Hx Substance Use: No Preferred Language: [place]orese Communication Ability: Effective Visual Impairment: No Limitations Hearing Ability: Normal Java Lead Engineer Required: No Beliefs That Will Affect Care: None marital status: / Current Living Situation: Care Home Current Living Situation Comment: [facility] How many Children do You have: 1 Feels Safe at Home: Yes Assistive Devices: Walker Allergies Allergies Allergy/AdvReac Type Severity Reaction Status Date / Time Penicillins Allergy Unknown RASH Verified 02/06/24 17:29 albuterol [From ProAir HFA] AdvReac Intermediate Dizziness Verified 02/06/24 17:29 Home Meds Home Medications Medication Instructions Recorded Confirmed lamotrigine 25 mg tablet (Lamictal) 25 mg PO HS 08/12/20 02/06/24 acetaminophen 500 mg tablet 500 mg PO Q6H PRN Pain 08/26/20 02/06/24 (Tylenol Extra Strength) levothyroxine 88 mcg tablet 88 mcg PO DAILYBB 12/09/20 02/06/24 (Synthroid) aripiprazole 2 mg tablet (Abilify) 2 mg PO QAM ##0 07/02/22 02/06/24 lorazepam 0.5 mg tablet 0.5 mg PO BID Anxiety 07/02/22 02/06/24 melatonin 3 mg tablet 3 mg PO HS ##0 07/02/22 02/06/24 lamotrigine 100 mg tablet 50 mg PO QAM 01/06/24 02/06/24 gabapentin 100 mg capsule 100 mg PO HS 02/06/24 02/06/24 lidocaine 4 % topical patch 0.5 patch topical DAILY 02/06/24 02/06/24 mirtazapine 7.5 mg tablet 7.5 mg PO HS 02/06/24 02/06/24 neomycin 1.75 mg-polymyxin 10,000 1 drp ophthalmic (eye) BID 02/06/24 02/06/24 unit-gramicidin 0.025mg/mL eye drops Previous Rx's Medication Instructions Recorded albuterol sulfate 90 mcg/actuation 1 puff inhalation QID PRN 01/14/24 aerosol inhaler (Ventolin HFA) shortness of breath or wheezing #6.7 grams cyanocobalamin (vitamin B-12) 500 1,000 mcg (2 x 500 mcg) PO QAM #30 01/14/24 mcg tablet tabs metoprolol succinate 50 mg 50 mg PO QAM #30 tabs 01/14/24 tablet,extended release 24 hr oxycodone-acetaminophen 5 mg-325 1 tab PO Q12H PRN pain #14 tabs 01/14/24 mg tablet (Percocet) Results & Data (ED) Vital Signs Vital Signs - 24 hr 02/06/24 13:40 02/06/24 13:55 02/06/24 15:21 Temperature 37.1 C Temperature Source Oral Pulse Rate 95 H 94 H 84 Pulse Rate [Apical] Pulse Rhythm Regular Respiratory Rate 22 22 Respiratory Effort / Characteristics Respiratory Depth Respiratory Pattern Blood Pressure 106/74 Blood Pressure [Right Arm] Blood Pressure Mean 84 Blood Pressure Mean [Right Arm] Blood Pressure Position [Right Arm] Pulse Oximetry 96 96 Oxygen Delivery Method Room Air Room Air Sepsis Recent Fever Within 48 Hours No Sepsis New/Unexplained Change in Mental Status N/A Sepsis Action Taken by Nursing No Action Required 02/06/24 16:12 02/06/24 18:26 02/06/24 19:04 Temperature Temperature Source Pulse Rate 90 Pulse Rate [Apical] 82 89 Pulse Rhythm Respiratory Rate 18 24 Respiratory Effort / Characteristics Non-Labored Spontaneous Respiratory Depth Normal Respiratory Pattern Regular Blood Pressure Blood Pressure [Right Arm] 142/79 H 176/93 H Blood Pressure Mean Blood Pressure Mean [Right Arm] 100 120 Blood Pressure Position [Right Arm] Lying Pulse Oximetry 94 93 Oxygen Delivery Method Room Air Room Air Sepsis Recent Fever Within 48 Hours Sepsis New/Unexplained Change in Mental Status Sepsis Action Taken by Nursing Laboratory Data 02/06/24 14:41 02/06/24 19:58 Lab Results 02/06/24 02/06/24 02/06/24 Range/Units 14:41 15:30 17:08 WBC 10.31 (4.8-10.8) K/ul RBC 3.26 L (4.20-5.40) M/uL Hgb 9.6 L (12.0-16.0) g/dl POC Hgb 10.9 L (12.0-16.0) g/dl Hct 31.3 L (37.0-47.0) % POC Hct 32 L (37-47) % MCV 96.0 (80.0-100.0) fL MCH 29.4 (25.0-34.0) pg MCHC 30.7 L (32.0-36.0) g/dL RDW Std Deviation 50.1 H (36.4-46.3) fL RDW Coeff of Margarito 14.0 (11.5-14.5) % Plt Count 383 (130-400) K/uL MPV 9.9 (9.4-12.4) fL Immature Gran % (Auto) 1.0 % Neut % (Auto) 86.9 % Lymph % (Auto) 7.4 % Edmunds % (Auto) 4.1 % Eos % (Auto) 0.4 % Baso % (Auto) 0.2 % Neut # (Auto) 8.97 H (1.40-6.50) K/uL Lymph # (Auto) 0.76 L (1.20-3.40) K/uL Edmunds # (Auto) 0.42 (0.11-0.59) K/uL Eos # (Auto) 0.04 (0.00-0.50) K/uL Baso # (Auto) 0.02 (0.00-0.20) K/uL Immature Gran # (Auto) 0.10 (0.01-0.20) K/uL VBG pH (7.36-7.41) VBG pCO2 (38-50) mmHg VBG pO2 mmHg VBG HCO3 mmol/L VBG O2 Saturation % VBG Base Excess mEq/L POC Sodium 143 (135-144) mmol/L Sodium 140 (136-145) mmol/L POC Potassium 4.5 (3.3-5.0) mmol/L Potassium 4.5 (3.5-5.1) mmol/L POC Chloride 112 (101-112) mmol/L Chloride 108 H (98-107) mmol/L Carbon Dioxide 20 L (21-32) mmol/L POC Total CO2 20 L (24-31) mmol/L Anion Gap 12 H (3-11) POC Anion Gap 16.0 (16-25) mmol/L POC BUN 37 H (7-18) mg/dl BUN 44 H (6-23) mg/dl Creatinine 1.65 H (0.6-1.2) mg/dl POC Creatinine 1.6 H (0.6-1.3) mg/dl Est Cr Clr Drug Dosing 18.7 ml/min Est GFR ( Amer) 32.7 ml/min Est GFR (Non-Af Amer) 28.2 ml/min BUN/Creatinine Ratio 26.7 H (10-20) Glucose 121 H (70-99(Fasting)) mg/dl POC Glucose (other) 108 H (70-99) mg/dl Calcium 9.2 (8.6-10.3) mg/dl POC Ioniz Calcium Bony 1.17 (1.12-1.32) mmol/l Iron (35-150) mcg/dl Transferrin (200-360) mg/dl Ferritin (8-388) ng/ml Total Bilirubin 0.4 (0.2-1.0) mg/dl AST 14 (13-39) U/L ALT 9 (7-52) U/L Alkaline Phosphatase 88 (34-104) U/L Total Protein 7.6 (6.0-8.3) gm/dl Albumin 3.7 (3.4-5.0) gm/dl Globulin 3.9 (2.5-4.0) gm/dl Albumin/Globulin Ratio 0.9 (0.9-2) Lipase 32 (11-82) U/L Urine Color Yellow Urine Appearance Cloudy A (Clear) Urine pH 6.5 (4.5-7.5) Ur Specific Clyde 1.012 (1.000-1.030) Urine Protein 1+ H (Negative) Urine Glucose (UA) Negative (Negative) Urine Ketones Negative (Negative) Urine Blood Trace H (Negative) Urine Nitrite Positive A (Negative) Urine Bilirubin Negative (Negative) Urine Urobilinogen Negative (Negative) Ur Leukocyte Esterase 2+ H (Negative) Urine WBC (Auto) >30 H (0-5) /hpf Urine RBC (Auto) 0-4 (0-4) /hpf U Hyaline Cast (Auto) 1-5 (0-5) /lpf U Epithel Cells (Auto) 0-5 (0-5) /lpf Urine Bacteria (Auto) 2+ H (Negative) Stl C. cayetanensis PCR Not Detected (NotDetected) Stool Rotavirus A PCR Not Detected (NotDetected) Stl Adenov F 40/41 PCR Not Detected (NotDetected) Stool Astrovirus (PCR) Not Detected (NotDetected) Stool Campylobacter PCR Not Detected (NotDetected) Stl C. diff Tox B Gene Negative Cdiff Gene (Neg) Stool Cryptosporidium PCR Not Detected (NotDetected) Stl E.coli Shiga Tox PCR Not Detected (NotDetected) Stl Enterotoxigenic E PCR Not Detected (NotDetected) Stool EPEC (PCR) Not Detected (NotDetected) Stool EAEC (PCR) Not Detected (NotDetected) Stl E. histolytica PCR Not Detected (NotDetected) Stool Giardia Lamblia PCR Not Detected (NotDetected) Stool Salmonella PCR Not Detected (NotDetected) Stool Sapovirus (PCR) Not Detected (NotDetected) Stl P. shigelloides PCR Not Detected (NotDetected) Stl Shigella/EIEC PCR Not Detected (NotDetected) St Y.enterocolitica PCR Not Detected (NotDetected) Stool Vibrio (PCR) Not Detected (NotDetected) Stl Vibrio cholerae PCR Not Detected (NotDetected) Stl Norovirus GI/GII PCR Not Detected (NotDetected) SARS-CoV-2, RNA, NAAT (NEGATIVE) 02/06/24 02/06/24 Range/Units 19:05 19:58 WBC (4.8-10.8) K/ul RBC (4.20-5.40) M/uL Hgb (12.0-16.0) g/dl POC Hgb (12.0-16.0) g/dl Hct (37.0-47.0) % POC Hct (37-47) % MCV (80.0-100.0) fL MCH (25.0-34.0) pg MCHC (32.0-36.0) g/dL RDW Std Deviation (36.4-46.3) fL RDW Coeff of Margarito (11.5-14.5) % Plt Count (130-400) K/uL MPV (9.4-12.4) fL Immature Gran % (Auto) % Neut % (Auto) % Lymph % (Auto) % Edmunds % (Auto) % Eos % (Auto) % Baso % (Auto) % Neut # (Auto) (1.40-6.50) K/uL Lymph # (Auto) (1.20-3.40) K/uL Edmunds # (Auto) (0.11-0.59) K/uL Eos # (Auto) (0.00-0.50) K/uL Baso # (Auto) (0.00-0.20) K/uL Immature Gran # (Auto) (0.01-0.20) K/uL VBG pH 7.37 (7.36-7.41) VBG pCO2 37 L (38-50) mmHg VBG pO2 < 20 mmHg VBG HCO3 21 mmol/L VBG O2 Saturation < 60.0 % VBG Base Excess -3.4 mEq/L POC Sodium (135-144) mmol/L Sodium 140 (136-145) mmol/L POC Potassium (3.3-5.0) mmol/L Potassium 4.3 (3.5-5.1) mmol/L POC Chloride (101-112) mmol/L Chloride 110 H (98-107) mmol/L Carbon Dioxide 20 L (21-32) mmol/L POC Total CO2 (24-31) mmol/L Anion Gap 10 (3-11) POC Anion Gap (16-25) mmol/L POC BUN (7-18) mg/dl BUN 38 H (6-23) mg/dl Creatinine 1.46 H (0.6-1.2) mg/dl POC Creatinine (0.6-1.3) mg/dl Est Cr Clr Drug Dosing 21.1 ml/min Est GFR ( Amer) 37.9 ml/min Est GFR (Non-Af Amer) 32.7 ml/min BUN/Creatinine Ratio 26.0 H (10-20) Glucose 99 (70-99(Fasting)) mg/dl POC Glucose (other) (70-99) mg/dl Calcium 9.0 (8.6-10.3) mg/dl POC Ioniz Calcium Bony (1.12-1.32) mmol/l Iron 20 L (35-150) mcg/dl Transferrin 163 L (200-360) mg/dl Ferritin 168.7 (8-388) ng/ml Total Bilirubin (0.2-1.0) mg/dl AST (13-39) U/L ALT (7-52) U/L Alkaline Phosphatase (34-104) U/L Total Protein (6.0-8.3) gm/dl Albumin (3.4-5.0) gm/dl Globulin (2.5-4.0) gm/dl Albumin/Globulin Ratio (0.9-2) Lipase (11-82) U/L Urine Color Urine Appearance (Clear) Urine pH (4.5-7.5) Ur Specific Clyde (1.000-1.030) Urine Protein (Negative) Urine Glucose (UA) (Negative) Urine Ketones (Negative) Urine Blood (Negative) Urine Nitrite (Negative) Urine Bilirubin (Negative) Urine Urobilinogen (Negative) Ur Leukocyte Esterase (Negative) Urine WBC (Auto) (0-5) /hpf Urine RBC (Auto) (0-4) /hpf U Hyaline Cast (Auto) (0-5) /lpf U Epithel Cells (Auto) (0-5) /lpf Urine Bacteria (Auto) (Negative) Stl C. cayetanensis PCR (NotDetected) Stool Rotavirus A PCR (NotDetected) Stl Adenov F 40/41 PCR (NotDetected) Stool Astrovirus (PCR) (NotDetected) Stool Campylobacter PCR (NotDetected) Stl C. diff Tox B Gene (Neg) Stool Cryptosporidium PCR (NotDetected) Stl E.coli Shiga Tox PCR (NotDetected) Stl Enterotoxigenic E PCR (NotDetected) Stool EPEC (PCR) (NotDetected) Stool EAEC (PCR) (NotDetected) Stl E. histolytica PCR (NotDetected) Stool Giardia Lamblia PCR (NotDetected) Stool Salmonella PCR (NotDetected) Stool Sapovirus (PCR) (NotDetected) Stl P. shigelloides PCR (NotDetected) Stl Shigella/EIEC PCR (NotDetected) St Y.enterocolitica PCR (NotDetected) Stool Vibrio (PCR) (NotDetected) Stl Vibrio cholerae PCR (NotDetected) Stl Norovirus GI/GII PCR (NotDetected) SARS-CoV-2, RNA, NAAT NEGATIVE (NEGATIVE) Administered Medications Discontinued Medications Sodium Chloride (Nss) 1,000 mls @ 999 mls/hr IV .Q1H1M ONE Stop: 02/06/24 14:53 Last Infusion: 02/06/24 17:21 Dose: Infused Documented By: Admin: 02/06/24 15:04 Dose: 999 mls/hr Documented By: NANI Ceftriaxone Sodium 2,000 mg/ (Dextrose) 50 mls @ 100 mls/hr IV NOW STA; Protocol Stop: 02/06/24 17:39 Last Infusion: 02/06/24 18:32 Dose: Infused Documented By: Admin: 02/06/24 18:09 Dose: 100 mls/hr Documented By: SHWETHA Ioversol (Optiray 320 100ml) 91 ml IV ONCE ONE Stop: 02/06/24 17:41 Last Admin: 02/06/24 17:41 Dose: 91 ml Documented By: DWAIN Imaging Data Radiologist's Impression: Abdomen/Pelvis CT 02/06/24 13:[address] WITH IV CONTRAST HISTORY: Acute onset abdominal pain status post fall multiple falls w/ abd pain TECHNIQUE: Multiaxial CT images of the abdomen and pelvis were performed following the IV administration of 91 cc of Optiray, A dose lowering technique was utilized adhering to the principles of ALARA. COMPARISON STUDY: 01/06/2024 FINDINGS: Mild interval healing of the subacute mildly displaced posterior right ninth rib fracture with unchanged alignment. Additional healing subacute anterior right eighth rib fracture. Trace right pleural fluid is present. No pneumothorax within the visualized lower chest. T12 compression deformity is chronic. Subacute to chronic right sacral alar fracture appears unchanged. No acute proximal femoral fracture is present. Healed intertrochanteric fracture of the left femur status post internal fixation is present. There is an acute comminuted left acetabular fracture which involves the anterior and superior allen with fracture extension into the left superior pubic ramus. Acute nondisplaced left inferior pubic ramus fractures with healed right pelvic ring fractures. Extensive plaque within the abdominal aorta with high-grade stenosis of the common iliac arteries and areas of chronic appearing internal iliac occlusion.. Unenhanced images of the liver, spleen, adrenal glands, and pancreas demonstrate no acute abnormality. Numerous tiny right renal cysts. There is mild right-sided perinephric stranding with mild pelvocaliectasis and urothelial thickening. Mild urinary bladder wall thickening. Heterogeneous uterus. Mild intrahepatic and extrahepatic biliary ductal dilation. Unremarkable gallbladder. There is no abnormality within the left nephrectomy bed. No evidence for a bowel obstruction. Colonic diverticulosis without evidence for acute diverticulitis. No lymphadenopathy is present. Soft tissue prominence of the left adductor musculature. IMPRESSION: 1. Acute and comminuted nondisplaced left acetabular fractures with additional fractures of the left superior and inferior pubic rami. 2. Healing subacute right-sided rib fractures with unchanged alignment compared to 01/06/2024 3. Right-sided urothelial thickening with pelvocaliectasis suggestive of an ascending infection. Correlate with urinalysis. 4. Unchanged appearance of the subacute to chronic nondisplaced right sacral alar fracture. 5. Additional findings as above. ACT 112: Negative or not required by law. The above report was generated using voice recognition software. It may contain grammatical, syntax or spelling errors. Electronically signed by: Gilmar Royal M.D. 02/06/2024 6:[address] 02/06/24 13:53 CT cervical spine wo con CLINICAL HISTORY: 83 years-old Female with call. Acute head and neck injury status post fall COMPARISON: CT cervical spine 08/26/2020, chest CT 07/02/2022 TECHNIQUE: Multiple axial CT images of the cervical spine were obtained without contrast. A dose lowering technique was utilized adhering to the principles of ALARA. FINDINGS: No acute cervical spine fracture or subluxation identified. No prevertebral edema. There are advanced multilevel degenerative changes. There is 4 mm anterolisthesis of C3 on C4 which is felt to be degenerative. There is spinal stenosis most pronounced the C4-5 level. There is foraminal narrowing most pronounced at the C4-5 and C5-C6 levels. No pneumothorax. Partially imaged left subclavian pacer leads. Mild acute versus subacute T1 compression deformity without retropulsion, which was not present on the 07/02/2022 exam. IMPRESSION: 1. No acute cervical spine fracture or subluxation. 2. Mild acute versus subacute T1 compression deformity without retropulsion. ACT 112: Negative or not required by law. The above report was generated using voice recognition software. It may contain grammatical, syntax or spelling errors. Electronically signed by: Gilmar Royal M.D. 02/06/2024 6:25 PM Chest X-Ray 02/06/24 13:53 XR chest 1V portable HISTORY: 83 years-old Female fall acute chest trauma status post fall COMPARISON: 01/06/2024 TECHNIQUE: AP view the chest FINDINGS: Cardiac silhouette is enlarged. Unchanged positioning of the left subclavian [id number] catheter. Moderate hemidiaphragmatic elevation. Chronic interstitial coarsening. No pneumothorax, pleural effusion or airspace consolidation. Bones appear grossly intact. IMPRESSION: Unchanged appearance of the chest without acute process identified. ACT 112: Negative or not required by law. The above report was generated using voice recognition software. It may contain grammatical, syntax or spelling errors. Electronically signed by: Gilmar Royal M.D. 02/06/2024 2:[address] 02/06/24 13:53 CT head/brain wo con CLINICAL HISTORY: 83 years-old Female with fall. Acute head and neck injury status post fall TECHNIQUE: Multiple axial CT images of the head were obtained without contrast. A dose lowering technique was utilized adhering to the principles of ALARA. CT DOSE: 1689.18 mGy.cm COMPARISON: CT cervical spine same day, head CT 01/06/2024 FINDINGS: No acute intracranial hemorrhage, midline shift, intracranial mass, hydrocephalus, territorial ischemia or abnormal extra-axial collection. Motion degraded exam. Involutional changes with chronic microvascular ischemic disease. The calvarium is intact. Minimal mucosal thickening of the paranasal sinuses. Mastoid air cells are clear. IMPRESSION: No acute intracranial abnormality or calvarial fracture. ACT 112: Negative or not required by law. The above report was generated using voice recognition software. It may contain grammatical, syntax or spelling errors. Electronically signed by: Gilmar Royal M.D. 02/06/2024 6:18 PM Hip/Pelvis X-Ray 02/06/24 13:53 XR hip LT 2V w pelvis CLINICAL HISTORY: Left hip pain following fall. COMPARISON: CT of the abdomen and pelvis January 06, 2024. Pelvis and left hip radiographs July 18, 2019. FINDINGS: Bladder stimulator, pelvic surgical clips and left femoral internal fixation hardware are incidentally noted. Sacroiliac joints and symphysis pubis are intact. There is no acute fracture within the pelvis or hips. There is a healed intertrochanteric fracture of the left femur. IMPRESSION: No acute fractures within the pelvis or hips. ACT 112: Negative or not required by law. Electronically signed by: Lamont Alcazar M.D. 02/06/2024 2:54 PM Knee X-Ray 02/06/24 13:53 XR knee LT 1 or 2V routine CLINICAL HISTORY: l knee TECHNIQUE: 2 views of the left knee were obtained. Comparison: Comparison is made to knee radiographs 07/18/2019 FINDINGS: There is no evidence of an acute fracture. Patient is status post total knee arthroplasty. No perihardware lucency or hardware fracture is seen. No joint effusion is seen. No soft tissue abnormality is seen. IMPRESSION: No acute abnormality. Hardware is satisfactory in appearance. ACT 112: Negative or not required by law. Electronically signed by: Ranjan Garcia M.D. 02/06/2024 2:[address] 02/06/24 18:58 Exam(s): CT L SPINE EXAM: CT Lumbar Spine Without Intravenous Contrast CLINICAL HISTORY: Reason for exam: fall. TECHNIQUE: Axial computed tomography images of the lumbar spine without intravenous contrast. CTDI is 25.89 mGy and DLP is 1266.44 mGy-cm. Automated exposure control was utilized for the study. A dose lowering technique was utilized adhering to the principles of ALARA. COMPARISON: No relevant prior studies available. FINDINGS: Vertebrae: The bones are markedly osteopenic. Marked levocurvature of the lumbar spine. Advanced multilevel degenerative disc disease and facet arthropathy. No acute fracture identified. Chronic appearing superior endplate height loss at T12. Severe spinal canal stenosis at L4- 5. Scattered foraminal stenosis of variable degrees. Soft tissues: Unremarkable. IMPRESSION: 1. No acute appearing fracture. 2. Severe spinal canal stenosis at L4-5. Electronically signed by: Bruce Chowdary MD 02/06/24 20:[address] 02/06/24 18:58 Exam(s): CT T SPINE EXAM: CT Thoracic Spine Without Intravenous Contrast CLINICAL HISTORY: Reason for exam: fall. TECHNIQUE: Axial computed tomography images of the thoracic spine without intravenous contrast. CTDI is 25.89 mGy and DLP is 1266.44 mGy-cm. Automated exposure control was utilized for the study. A dose lowering technique was utilized adhering to the principles of ALARA. COMPARISON: Chest CT 07/02/2022 FINDINGS: Vertebrae: New or worsening compression deformities at T1, T5, T7, T9, and T10. Multiple compression deformities. Some of these were present on the prior. The chronic appearing compression deformities are at T3, T4, T8, and T12. Soft tissues: Unremarkable. IMPRESSION: New or worsening compression deformities at T1, T5, T7, T9, and T10. These may be any combination of acute, subacute, or chronic. There is no significant canal stenosis. Electronically signed by: Bruce Chowdary MD 02/06/24 20:17 PM Discharge Plan Visit Data Chief Complaint: Fall Stated Complaint: FALLS, L KNEE PAIN ED Provider: Vladimir Saavedra Discharge Problem: Acetabular fracture, UTI (urinary tract infection), Recurrent falls, Weakness Forms Stand Alone Forms: [facility] Prescriptions Prescriptions: No Action lamotrigine [Lamictal] 25 mg tablet 25 mg PO HS levothyroxine [Synthroid] 88 mcg tablet 88 mcg PO DAILYBB acetaminophen [Tylenol Extra Strength] 500 mg Tablet 500 mg PO Q6H PRN (Reason: Pain) lorazepam 0.5 mg tablet 0.5 mg PO BID melatonin 3 mg Tablet 3 mg PO HS Qty: 0 aripiprazole [Abilify] 2 mg Tablet 2 mg PO QAM Qty: 0 lamotrigine 100 mg tablet 50 mg PO QAM metoprolol succinate 50 mg Tablet Extended Release 24 Hr 50 mg PO QAM Qty: 30 0RF oxycodone-acetaminophen [Percocet] 5-325 mg Tablet 1 tab PO Q12H PRN (Reason: pain) Qty: 14 0RF cyanocobalamin (vitamin B-12) 500 mcg Tablet 1,000 mcg PO QAM Qty: 30 0RF albuterol sulfate [Ventolin HFA] 90 mcg/actuation Hfa Aerosol Inhaler 1 puff inhalation QID PRN (Reason: shortness of breath or wheezing) Qty: 6.7 0RF lidocaine 4 % Adhesive Patch,Medicated 0.5 patch TOPICAL DAILY Rx Instructions: PLACE 1/2 PATCH ON EACH KNEE QAM, REMOVE QPM. gabapentin 100 mg capsule 100 mg PO HS mirtazapine 7.5 mg tablet 7.5 mg PO HS [id number] 1.75 mg-10,000 unit-0.025mg/mL drops 1 drp ophthalmic (eye) BID Referrals Referrals: [facility] [Non-Staff] - Discharge Problem: Acetabular fracture Qualifiers: Encounter type: initial encounter Sublocation of acetabulum: unspecified portion of acetabulum Fracture type: closed Fracture alignment: nondisplaced L aterality: left Qualified Code(s): S32.402A - Unspecified fracture of left acetabulum, initial encounter for closed fracture UTI (urinary tract infection) Qualifiers: Urinary tract infection type: site unspecified Hematuria presence: without hematuria Qualified Code(s): N39.0 - Urinary tract infection, site not specified
--- NOTE | 2024-02-06 14:25 | XRay Report ---
XR chest 1V portable HISTORY: 83 years-old Female fall acute chest trauma status post fall COMPARISON: 01/06/2024 TECHNIQUE: AP view the chest FINDINGS: Cardiac silhouette is enlarged. Unchanged positioning of the left subclavian [id number] catheter. Moderate hemidiaphragmatic elevation. Chronic interstitial coarsening. No pneumothorax, pleural effus ion or airspace consolidation. Bones appear grossly intact. IMPRESSION: Unchanged appearance of the chest without acute process identified. ACT 112: Negative or not required by law. The above report was generated using voice recognition software. It may contain grammatical, syntax o r spelling errors. Electronically signed by: Gilmar Royal M.D. 02/06/2024 2:24 PM
--- NOTE | 2024-02-06 14:29 | XRay Report ---
XR knee LT 1 or 2V routine CLINICAL HISTORY: l knee TECHNIQUE: 2 views of the left knee were obtained. Comparison: Comparison is made to knee radiographs 07/18/2019 FINDINGS: There is no evidence of an acute fracture. Patient is status post total knee arthroplasty. No perihar dware lucency or hardware fracture is seen. No joint effusion is seen. No soft tissue abnormality is seen. IMPRESSION: No acute abnormality. Hardware is satisfactory in appearance. ACT 112: Negative or not required by law. Electronically signed by: Ranjan Garcia M.D. 02/06/2024 2:28 PM
--- NOTE | 2024-02-06 14:55 | XRay Report ---
XR hip LT 2V w pelvis CLINICAL HISTORY: Left hip pain following fall. COMPARISON: CT of the abdomen and pelvis January 06, 2024. Pelvis and left hip radiographs June. FINDINGS: Bladder stimulator, pelvic surgical clips and left femoral internal fixation hardware are incidentally noted. Sacroiliac joints and symphysis pubis are intact. There is no acute fracture with in the pelvis or hips. There is a healed intertrochanteric fracture of the left femur. IMPRESSION: No acute fractures within the pelvis or hips. ACT 112: Negative or not required by law. Electronically signed by: Lamont Alcazar M.D. 02/06/2024 2:54 PM
[2024-02-06] MEDS: SODIUM CHLORIDE 0.9% 1,000 ML IV ONE (15:04)
[2024-02-06 16:17] LABS: Appearance Urine Cloudy (Clear); Bacteria Urine Automated 2+ (Negative); Bilirubin Urine Negative (Negative); Blood Urine Trace (Negative); Color Urine Yellow; Epithelial Cell Urine Auto 0-5 /lpf (0-5); Glucose Urine UA Negative (Negative); Ketones Urine Negative (Negative); Leukocyte Esterase Urine 2+ (Negative); Nitrite Urine Positive (Negative); Protein Urine 1+ (Negative); RBC Urine Automated 0-4 /hpf (0-4); Specific Gravity Urine 1.012 (1.000-1.030); Urobilinogen Urine Negative (Negative); WBC Urine Automated >30 /hpf (0-5); pH Urine 6.5 (4.5-7.5)
[2024-02-06 16:25] LABS: Basophils # (auto) 0.02 K/uL (0.00-0.20); Basophils % (auto) 0.2 %; Eosinophils # (auto) 0.04 K/uL (0.00-0.50); Eosinophils % (auto) 0.4 %; Hematocrit (blood only) 31.3 % (37.0-47.0); Hemoglobin 9.6 g/dl (12.0-16.0); Lymphocytes # (auto) 0.76 K/uL (1.20-3.40); Lymphocytes % (auto) 7.4 %; Mean Corpuscular Hemoglobin 29.4 pg (25.0-34.0); Mean Corpuscular Hgb Conc 30.7 g/dL (32.0-36.0); Mean Platelet Volume 9.9 fL (9.4-12.4); Monocytes # (auto) 0.42 K/uL (0.11-0.59); Monocytes % (auto) 4.1 %; Neutrophils # (auto) 8.97 K/uL (1.40-6.50); Neutrophils % (auto) 86.9 %; Platelet Count 383 K/uL (130-400); RDW Standard Deviation 50.1 fL (36.4-46.3); Red Blood Count 3.26 M/uL (4.20-5.40); White Blood Count 10.31 K/ul (4.8-10.8)
[2024-02-06 16:53] LABS: Albumin Level 3.7 gm/dl (3.4-5.0); Bilirubin,Total 0.4 mg/dl (0.2-1.0); Calcium 9.2 mg/dl (8.6-10.3); Potassium 4.5 mmol/L (3.5-5.1)
[2024-02-06 16:59] LABS: Albumin Globulin Ratio 0.9 (0.9-2); BUN Creatinine Ratio 26.7 (10-20); Creatinine Clr Calc Pharmacy 18.7 ml/min; Est GFR (African American) 32.7 ml/min; Est GFR (Non-African American) 28.2 ml/min; Globulin 3.9 gm/dl (2.5-4.0); Total Protein 7.6 gm/dl (6.0-8.3)
[2024-02-06 17:22] LABS: iSTAT Creatinine 1.6 mg/dl (0.6-1.3); iSTAT Hemoglobin 10.9 g/dl (12.0-16.0); iSTAT Ionized Calcium 1.17 mmol/l (1.12-1.32); iSTAT Potassium 4.5 mmol/L (3.3-5.0)
[2024-02-06] MEDS: OPTIRAY 320 100ml IV ONE (17:41)
[2024-02-06] MEDS: cefTRIAXone SODIUM 2,000 MG in DEXTROSE 5 % MINI-B 50 ML IV STA (18:09)
--- NOTE | 2024-02-06 18:19 | History & Physical Report ---
Date of Service February 06, 2024 Assessment & Plan (1) Frequent falls: (2) Acetabular fracture: (3) Pubic bone fracture: (4) Closed compression fracture of thoracic vertebra: (5) Osteoporosis: Plan: Patient is 83-year-old female with PMH COPD, CKD IV, hypothyroidism, bipolar disorder, chronic pain, malnutrition, history of wide-complex tachycardia, LBBB, recurrent falls, history of orthostatic hypotension and others listed below presented to ER from [facility] for recurrent falls. CT head: No acute intracranial abnormality or calvarial fracture. CT C-spine: No acute cervical spine fracture or subluxation. Mild acute versus subacute T1 compression deformity without retropulsion. CT thoracic spine: New or worsening compression deformities at T1, T5, T7, T9, and T10. These may be any combination of acute, subacute, or chronic. There is no significant canal stenosis CT lumbar spine: No acute appearing fracture. Severe spinal canal stenosis at L4-5. CT abdomen pelvis: Acute and comminuted nondisplaced left acetabular fractures with additional fractures of the left superior and inferior pubic rami. Healing subacute right-sided rib fractures with unchanged alignment compared to 01/06/2024. Right-sided urothelial thickening with pelvocaliectasis suggestive of an ascending infection. Correlate with urinalysis. Unchanged appearance of the subacute to chronic nondisplaced right sacral alar fracture. X-ray left knee: No acute abnormality. Hardware is satisfactory in appearance. Hip/pelvis x-ray:No acute fractures within the pelvis or hips. Scheduled Tylenol. oxycodone, morphine as needed pain. Lidocaine patches to knees Bedrest for now NPO midnight Ortho consult Ortho spine consult Fall precautions Would plan on PT/OT when able CBC, BMP in a.m. (6) UTI (urinary tract infection): Plan: UA: + Nitrate, 2+ leuk esterase,> 30 WBC, 2+ bacteria Patient denies urinary symptoms In ER given Rocephin, 1L NSS Continue Rocephin for now Urine culture pending (7) Diarrhea: Plan: 3 episodes of loose diarrhea in ER Stool cultures, C. difficile pending Placed on contact precautions for now Patient denies abdominal pain (8) Anemia: Plan: Hgb: 9.6. Was 11.2 on 01/13/2024 Patient denies noted melena, hematochezia, hematuria Anemia labs pending Continue home B12 (9) CKD (chronic kidney disease), stage IV: Plan: Cr: 1.6. Was 1.6 on 01/13/2024 Monitor renal functions, avoid nephrotoxic agents when possible (10) Wide-complex tachycardia: Plan: History wide-complex tachycardia prior admission artifact versus torsades Appears sinus rhythm on monitor in ER Obtain admitting EKG Continue metoprolol (11) Orthostatic hypotension: Plan: History orthostatic hypotension Monitor BPs Would plan to obtain orthostatic vitals when able (12) COPD (chronic obstructive pulmonary disease): Plan: No signs exacerbation Continue albuterol as needed Patient has quit smoking (13) Chronic pain syndrome: Plan: Continue gabapentin, lidocaine patches to knees Acute pain medication regimen as above (14) Hypothyroidism: Plan: Continue levothyroxine (15) Bipolar disorder: Plan: Continue aripiprazole, lamotrigine Hold lorazepam while currently receiving narcotic pain medication (16) Malnutrition: Plan: Protein calorie malnutrition BMI: 17 Dietitian consult DVT Prophylaxis SCDs for now DNR/DNI as per discussion with pt Follows with Dr Quezada for routine care Pt was seen and care coordinated with Dr Ureña. See addendum I spent a total of 80 minutes reviewing notes, outpatient records, labs, medication, coordinating, documenting and providing care for this patient excluding time spent in the performance of separately billed services. History of Present Illness Chief Complaint: Recurrent falls Primary Care Provider: Kedar Quezada DO Patient is 83-year-old female with PMH COPD, CKD IV, hypothyroidism, bipolar disorder, chronic pain, malnutrition, history of wide-complex tachycardia, LBBB, recurrent falls, history of orthostatic hypotension and others listed below presented to ER from [facility] for recurrent falls. History obtained from patient and inpatient chart review. Patient admitted 01/06/2024-01/14/2024 for recurrent falls, nondisplaced right sacral fracture, right ninth rib fracture and chronic pain. Was discharged to [facility] rehab. Patient states was doing well at [facility] and was discharged back to [facility]. States since back has been having recurrent falls again. Reports has had 4 falls in the past several days. Last fall was yesterday. Denies falling today. Patient states two of her falls she hit her head. Denies LOC. Patient states is feeling dizzy with standing and ambulating. Patient reports chronic dizziness with standing. Per chart review patient with history of orthostatic hypotension. Patient reports chronic shoulder pain and chronic paresthesias bilateral feet. States still having some right buttock pain however this is much improved than last month. Patient s tates since recent falls she has been having left knee pain that is aggravated with any attempted range of motion. Also complains of left hip pain and neck and upper back pain. Today reports has had a couple episodes of diarrhea while in ER. Denies any abdominal pain. Denies dysuria, urinary frequency. Patient reports chronic shortness of breath and chest tightness with exertion that has been ongoing for years. Denies fever/chills, diaphoresis, N/V, hematochezia, melena, JOHNSON, syncope, vision changes, palpitations, cough, sore throat, rhinorrhea, abdominal pain, increased paresthesias, extremity edema, rashes. Allergies Allergy/AdvReac Type Severity Reaction Status Date / Time Penicillins Allergy Unknown RASH Verified 02/06/24 17:29 albuterol [From ProAir HFA] AdvReac Intermediate Dizziness Verified 02/06/24 17:29 Home Medications Medication Instructions Recorded Confirmed Type lamotrigine 25 mg tablet (Lamictal) 25 mg PO HS 08/12/20 02/06/24 History acetaminophen 500 mg tablet 500 mg PO Q6H PRN Pain 08/26/20 02/06/24 History (Tylenol Extra Strength) levothyroxine 88 mcg tablet 88 mcg PO DAILYBB 12/09/20 02/06/24 History (Synthroid) aripiprazole 2 mg tablet (Abilify) 2 mg PO QAM ##0 07/02/22 02/06/24 History lorazepam 0.5 mg tablet 0.5 mg PO BID Anxiety 07/02/22 02/06/24 History melatonin 3 mg tablet 3 mg PO HS ##0 07/02/22 02/06/24 History lamotrigine 100 mg tablet 50 mg PO QAM 01/06/24 02/06/24 History albuterol sulfate 90 mcg/actuation 1 puff inhalation QID PRN 01/14/24 02/06/24 Rx aerosol inhaler (Ventolin HFA) shortness of breath or wheezing #6.7 grams cyanocobalamin (vitamin B-12) 500 1,000 mcg (2 x 500 mcg) PO QAM #30 01/14/24 02/06/24 Rx mcg tablet tabs metoprolol succinate 50 mg 50 mg PO QAM #30 tabs 01/14/24 02/06/24 Rx tablet,extended release 24 hr oxycodone-acetaminophen 5 mg-325 1 tab PO Q12H PRN pain #14 tabs 01/14/24 02/06/24 Rx mg tablet (Percocet) gabapentin 100 mg capsule 100 mg PO HS 02/06/24 02/06/24 History lidocaine 4 % topical patch 0.5 patch topical DAILY 02/06/24 02/06/24 History mirtazapine 7.5 mg tablet 7.5 mg PO HS 02/06/24 02/06/24 History neomycin 1.75 mg-polymyxin 10,000 1 drp ophthalmic (eye) BID 02/06/24 02/06/24 History unit-gramicidin 0.025mg/mL eye drops Past Med/Surg History Medical History (Updated 02/06/24 @ 21:08 by Vladimir Saavedra DO) UTI (urinary tract infection) Generalized pain Intractable pain Hypothyroidism Bipolar disorder Neuropathy CKD (chronic kidney disease), stage IV S/p nephrectomy Tobacco abuse COPD (chronic obstructive pulmonary disease) Osteoarthritis Malignant tumor of urinary bladder Malignant tumor of kidney COPD (chronic obstructive pulmonary disease) Dizziness Altered mental status History of kidney cancer Bladder cancer CKD (chronic kidney disease), stage IV Tobacco abuse Urothelial cancer (~2010) Surgical History History of partial hysterectomy H/O dilation and curettage Hx of total knee arthroplasty S/p nephrectomy "Left" H/O: hysterectomy Family History Aunt Heart disease [place] in her 50s Mother Breast cancer Father Prostate cancer Social History Smoking Status: Former smoker Tobacco Type: Cigarettes Cigarettes Per Day: 5; Second Hand Exposure: No; Do You Dip or Chew Tobacco: No; Hx Alcohol Use: No Hx Substance Use: No Preferred Language: German Communication Ability: Effective Visual Impairment: No Limitations Hearing Ability: Normal Varnishing Machine Operator Required: No Beliefs That Will Affect Care: None marital status: / Current Living Situation: Personal Care Facility Current Living Situation Comment: [facility] How many Children do You have: 1 Feels Safe at Home: Yes Safety Concerns: Feels Safe At This Time Assistive Devices: Walker Review of Systems Review of Systems: All systems reviewed & are unremarkable except as noted in HPI & below Physical Exam Physical Exam: General: no acute distress, chronically ill, thin elderly female Head: normocephalic, atraumatic Eyes: PERRL, EOM's intact, conjunctiva non-injected, anicteric ENT: normal inspection external ears, nose, mucous membranes moist Neck: supple, trachea midline,+tender to palpation distal posterior neck and upper thoracic region Lungs: clear, no respiratory distress, no wheezing/rhonchi/rales CV: RRR, no pretibial edema Abd: normal BS, soft, non-tender. No CVA tenderness to palpation Ext: no cyanosis, RLE without tenderness to palpation, pt able to actively flex and extend right hip and knee. LLE: +tenderness to palpation lateral and posterior hip, +tenderness to palpation anterior knee. Limited active ROM left hip and left knee secondary to discomfort. Distal pulses palpable, sensation to light touch intact Neuro: Alert and oriented to person, place and time, no focal deficits noted, normal affect Skin: warm, dry Results & Data Results & Data Vital Signs (Past 12 Hours) Vital Signs Temp Pulse Pulse Resp BP BP Pulse Ox 02/06/24 16:12 82 18 142/79 H 94 02/06/24 15:21 84 02/06/24 13:55 94 H 22 96 02/06/24 13:40 37.1 C 95 H 22 106/74 96 O2 Del Method 02/06/24 16:12 Room Air 02/06/24 15:21 02/06/24 13:55 Room Air 02/06/24 13:40 Room Air Laboratory Results Short CBC 02/06/24 Range/Units 14:41 WBC 10.31 (4.8-10.8) K/ul Hgb 9.6 L (12.0-16.0) g/dl Hct 31.3 L (37.0-47.0) % Plt Count 383 (130-400) K/uL BMP 02/06/24 14:41 Sodium 140 Potassium 4.5 Chloride 108 H Carbon Dioxide 20 L BUN 44 H Creatinine 1.65 H Glucose 121 H Calcium 9.2 Liver Function 02/06/24 Range/Units 14:41 Total Bilirubin 0.4 (0.2-1.0) mg/dl AST 14 (13-39) U/L ALT 9 (7-52) U/L Alkaline Phosphatase 88 (34-104) U/L Albumin 3.7 (3.4-5.0) gm/dl Urine 02/06/24 Range/Units 15:30 Urine Color Yellow Urine Appearance Cloudy A (Clear) Urine pH 6.5 (4.5-7.5) Ur Specific [place] 1.012 (1.000-1.030) Urine Protein 1+ H (Negative) Urine Glucose (UA) Negative (Negative) Diagnostic Findings Abdomen/Pelvis CT 02/06/24 13:[address] WITH IV CONTRAST HISTORY: Acute onset abdominal pain status post fall multiple falls w/ abd pain TECHNIQUE: Multiaxial CT images of the abdomen and pelvis were performed following the IV administration of 91 cc of Optiray, A dose lowering technique was utilized adhering to the principles of ALARA. COMPARISON STUDY: 01/06/2024 FINDINGS: Mild interval healing of the subacute mildly displaced posterior right ninth rib fracture with unchanged alignment. Additional healing subacute anterior right eighth rib fracture. Trace right pleural fluid is present. No pneumothorax within the visualized lower chest. T12 compression deformity is chronic. Subacute to chronic right sacral alar fracture appears unchanged. No acute proximal femoral fracture is present. Healed intertrochanteric fracture of the left femur status post internal fixation is present. There is an acute comminuted left acetabular fracture which involves the anterior and superior allen with fracture extension into the left superior pubic ramus. Acute nondisplaced left inferior pubic ramus fractures with healed right pelvic ring fractures. Extensive plaque within the abdominal aorta with high-grade stenosis of the common iliac arteries and areas of chronic appearing internal iliac occlusion.. Unenhanced images of the liver, spleen, adrenal glands, and pancreas demonstrate no acute abnormality. Numerous tiny right renal cysts. There is mild right-sided perinephric stranding with mild pelvocaliectasis and urothelial thickening. Mild urinary bladder wall thickening. Heterogeneous uterus. Mild intrahepatic and extrahepatic biliary ductal dilation. Unremarkable gallbladder. There is no abnormality within the left nephrectomy bed. No evidence for a bowel obstruction. Colonic diverticulosis without evidence for acute diverticulitis. No lymphadenopathy is present. Soft tissue prominence of the left adductor musculature. IMPRESSION: 1. Acute and comminuted nondisplaced left acetabular fractures with additional fractures of the left superior and inferior pubic rami. 2. Healing subacute right-sided rib fractures with unchanged alignment compared to 01/06/2024 3. Right-sided urothelial thickening with pelvocaliectasis suggestive of an ascending infection. Correlate with urinalysis. 4. Unchanged appearance of the subacute to chronic nondisplaced right sacral alar fracture. 5. Additional findings as above. ACT 112: Negative or not required by law. The above report was generated using voice recognition software. It may contain grammatical, syntax or spelling errors. Electronically signed by: Gilmar Royal M.D. 02/06/2024 6:[address] 02/06/24 13:53 CT cervical spine wo con CLINICAL HISTORY: 83 years-old Female with call. Acute head and neck injury status post fall COMPARISON: CT cervical spine 08/26/2020, chest CT 07/02/2022 TECHNIQUE: Multiple axial CT images of the cervical spine were obtained without contrast. A dose lowering technique was utilized adhering to the principles of ALARA. FINDINGS: No acute cervical spine fracture or subluxation identified. No prevertebral edema. There are advanced multilevel degenerative changes. There is 4 mm anterolisthesis of C3 on C4 which is felt to be degenerative. There is spinal stenosis most pronounced the C4-5 level. There is foraminal narrowing most pronounced at the C4-5 and C5-C6 levels. No pneumothorax. Partially imaged left subclavian pacer leads. Mild acute versus subacute T1 compression deformity without retropulsion, which was not present on the 07/02/2022 exam. IMPRESSION: 1. No acute cervical spine fracture or subluxation. 2. Mild acute versus subacute T1 compression deformity without retropulsion. ACT 112: Negative or not required by law. The above report was generated using voice recognition software. It may contain grammatical, syntax or spelling errors. Electronically signed by: Gilmar Royal M.D. 02/06/2024 6:25 PM Chest X-Ray 02/06/24 13:53 XR chest 1V portable HISTORY: 83 years-old Female fall acute chest trauma status post fall COMPARISON: 01/06/2024 TECHNIQUE: AP view the chest FINDINGS: Cardiac silhouette is enlarged. Unchanged positioning of the left subclavian [id number] catheter. Moderate hemidiaphragmatic elevation. Chronic interstitial coarsening. No pneumothorax, pleural effusion or airspace consolidation. Bones appear grossly intact. IMPRESSION: Unchanged appearance of the chest without acute process identified. ACT 112: Negative or not required by law. The above report was generated using voice recognition software. It may contain grammatical, syntax or spelling errors. Electronically signed by: Gilmar Royal M.D. 02/06/2024 2:[address] 02/06/24 13:53 CT head/brain wo con CLINICAL HISTORY: 83 years-old Female with fall. Acute head and neck injury status post fall TECHNIQUE: Multiple axial CT images of the head were obtained without contrast. A dose lowering technique was utilized adhering to the principles of ALARA. CT DOSE: 1689.18 mGy.cm COMPARISON: CT cervical spine same day, head CT 01/06/2024 FINDINGS: No acute intracranial hemorrhage, midline shift, intracranial mass, hydrocephalus, territorial ischemia or abnormal extra-axial collection. Motion degraded exam. Involutional changes with chronic microvascular ischemic disease. The calvarium is intact. Minimal mucosal thickening of the paranasal sinuses. Mastoid air cells are clear. IMPRESSION: No acute intracranial abnormality or calvarial fracture. ACT 112: Negative or not required by law. The above report was generated using voice recognition software. It may contain grammatical, syntax or spelling errors. Electronically signed by: Gilmar Royal M.D. 02/06/2024 6:18 PM Hip/Pelvis X-Ray 02/06/24 13:53 XR hip LT 2V w pelvis CLINICAL HISTORY: Left hip pain following fall. COMPARISON: CT of the abdomen and pelvis January 06, 2024. Pelvis and left hip radiographs July 18, 2019. FINDINGS: Bladder stimulator, pelvic surgical clips and left femoral internal fixation hardware are incidentally noted. Sacroiliac joints and symphysis pubis are intact. There is no acute fracture within the pelvis or hips. There is a healed intertrochanteric fracture of the left femur. IMPRESSION: No acute fractures within the pelvis or hips. ACT 112: Negative or not required by law. Electronically signed by: Lamont Alcazar M.D. 02/06/2024 2:54 PM Knee X-Ray 02/06/24 13:53 XR knee LT 1 or 2V routine CLINICAL HISTORY: l knee TECHNIQUE: 2 views of the left knee were obtained. Comparison: Comparison is made to knee radiographs 07/18/2019 FINDINGS: There is no evidence of an acute fracture. Patient is status post total knee arthroplasty. No perihardware lucency or hardware fracture is seen. No joint effusion is seen. No soft tissue abnormality is seen. IMPRESSION: No acute abnormality. Hardware is satisfactory in appearance. ACT 112: Negative or not required by law. Electronically signed by: Ranjan Garcia M.D. 02/06/2024 2:[address] 02/06/24 18:58 Exam(s): CT L SPINE EXAM: CT Lumbar Spine Without Intravenous Contrast CLINICAL HISTORY: Reason for exam: fall. TECHNIQUE: Axial computed tomography images of the lumbar spine without intravenous contrast. CTDI is 25.89 mGy and DLP is 1266.44 mGy-cm. Automated exposure control was utilized for the study. A dose lowering technique was utilized adhering to the principles of ALARA. COMPARISON: No relevant prior studies available. FINDINGS: Vertebrae: The bones are markedly osteopenic. Marked levocurvature of the lumbar spine. Advanced multilevel degenerative disc disease and facet arthropathy. No acute fracture identified. Chronic appearing superior endplate height loss at T12. Severe spinal canal stenosis at L4- 5. Scattered foraminal stenosis of variable degrees. Soft tissues: Unremarkable. IMPRESSION: 1. No acute appearing fracture. 2. Severe spinal canal stenosis at L4-5. Electronically signed by: Bruce Chowdary MD 02/06/24 20:[address] 02/06/24 18:58 Exam(s): CT T SPINE EXAM: CT Thoracic Spine Without Intravenous Contrast CLINICAL HISTORY: Reason for exam: fall. TECHNIQUE: Axial computed tomography images of the thoracic spine without intravenous contrast. CTDI is 25.89 mGy and DLP is 1266.44 mGy-cm. Automated exposure control was utilized for the study. A dose lowering technique was utilized adhering to the principles of ALARA. COMPARISON: Chest CT 07/02/2022 FINDINGS: Vertebrae: New or worsening compression deformities at T1, T5, T7, T9, and T10. Multiple compression deformities. Some of these were present on the prior. The chronic appearing compression deformities are at T3, T4, T8, and T12. Soft tissues: Unremarkable. IMPRESSION: New or worsening compression deformities at T1, T5, T7, T9, and T10. These may be any combination of acute, subacute, or chronic. There is no significant canal stenosis. Electronically signed by: Bruce Chowdary MD 02/06/24 20:17 PM Supervising Physician Co-Signing Physician Notes Pt was seen and examined by myself, Era Ureña MD on the day of service. Care was coordinated with Sherice London PA-C. 83yoF presenting with frequent falls, noted new acetabular fracture, multiple thoracic spine fractures and UTI. On exam AAOx3, sitting in bed with legs bent at the knees bilaterally. Comfortable. Orthopedics and ortho spine consults, Pain control, PT/OT when appropriate, will likely need placement. Fall precautions are important in her case. UA suggestive of infection, urine Cx pending. IV Rocephin, narrow based on Cx. Diarrhea- stool cx, c diff, prn loperamide Otherwise as above. I spent a total [id number] coordinating, documenting, and providing care for this patient excluding time spent in the performance of separately billed services (12) COPD (chronic obstructive pulmonary disease) COPD type: unspecified COPD Qualified Code(s): J44.9 - Chronic obstructive pulmonary disease, unspecified (14) Hypothyroidism Hypothyroidism type: unspecified Qualified Code(s): E03.9 - Hypothyroidism, unspecified
--- NOTE | 2024-02-06 18:20 | CT Scan Report ---
CT head/brain wo con CLINICAL HISTORY: 83 years-old Female with fall. Acute head and neck injury status post fall TECHNIQUE: Multiple axial CT images of the head were obtained without contrast. A dose lowering tech nique was utilized adhering to the principles of ALARA. CT DOSE: 1689.18 mGy.cm COMPARISON: CT cervical spine same day, head CT 01/06/2024 FINDINGS: No acute intracranial hemorrhage, midline shift, intracranial mass, hydrocephalus, territorial ischem ia or abnormal extra-axial collection. Motion degraded exam. Involutional changes with chronic microv ascular ischemic disease. The calvarium is intact. Minimal mucosal thickening of the paranasal sinuses. Mastoid air cells are clear. IMPRESSION: No acute intracranial abnormality or calvarial fracture. ACT 112: Negative or not required by law. The above report was generated using voice recognition software. It may contain grammatical, syntax o r spelling errors. Electronically signed by: Gilmar Royal M.D. 02/06/2024 6:18 PM
--- NOTE | 2024-02-06 18:28 | CT Scan Report ---
CT cervical spine wo con CLINICAL HISTORY: 83 years-old Female with call. Acute head and neck injury status post fall COMPARISON: CT cervical spine 08/26/2020, chest CT 07/02/2022 TECHNIQUE: Multiple axial CT images of the cervical spine were obtained without contrast. A dose low ering technique was utilized adhering to the principles of ALARA. FINDINGS: No acute cervical spine fracture or subluxation identified. No prevertebral edema. There ar e advanced multilevel degenerative changes. There is 4 mm anterolisthesis of C3 on C4 which is felt t o be degenerative. There is spinal stenosis most pronounced the C4-5 level. There is foraminal narrow ing most pronounced at the C4-5 and C5-C6 levels. No pneumothorax. Partially imaged left subclavian pacer leads. Mild acute versus subacute T1 compress ion deformity without retropulsion, which was not present on the 07/02/2022 exam. IMPRESSION: 1. No acute cervical spine fracture or subluxation. 2. Mild acute versus subacute T1 compression deformity without retropulsion. ACT 112: Negative or not required by law. The above report was generated using voice recognition software. It may contain grammatical, syntax o r spelling errors. Electronically signed by: Gilmar Royal M.D. 02/06/2024 6:25 PM
--- NOTE | 2024-02-06 18:44 | CT Scan Report ---
ABDOMEN AND PELVIS CT WITH IV CONTRAST HISTORY: Acute onset abdominal pain status post fall multiple falls w/ abd pain TECHNIQUE: Multiaxial CT images of the abdomen and pelvis were performed following the IV administrat ion of 91 cc of Optiray, A dose lowering technique was utilized adhering to the principles of ALARA. COMPARISON STUDY: 01/06/2024 FINDINGS: Mild interval healing of the subacute mildly displaced posterior right ninth rib fracture w ith unchanged alignment. Additional healing subacute anterior right eighth rib fracture. Trace right pleural fluid is present. No pneumothorax within the visualized lower chest. T12 compression deformit y is chronic. Subacute to chronic right sacral alar fracture appears unchanged. No acute proximal fem oral fracture is present. Healed intertrochanteric fracture of the left femur status post internal fi xation is present. There is an acute comminuted left acetabular fracture which involves the anterior and superior allen with fracture extension into the left superior pubic ramus. Acute nondisplaced lef t inferior pubic ramus fractures with healed right pelvic ring fractures. Extensive plaque within the abdominal aorta with high-grade stenosis of the common iliac arteries and areas of chronic appearing internal iliac occlusion.. Unenhanced images of the liver, spleen, adrena l glands, and pancreas demonstrate no acute abnormality. Numerous tiny right renal cysts. There is mi ld right-sided perinephric stranding with mild pelvocaliectasis and urothelial thickening. Mild urina ry bladder wall thickening. Heterogeneous uterus. Mild intrahepatic and extrahepatic biliary ductal d ilation. Unremarkable gallbladder. There is no abnormality within the left nephrectomy bed. No evidence for a bowel obstruction. Colonic diverticulosis without evidence for acute diverticulitis. No lymphadenopathy is present. Soft tissue prominence of the left adductor musculature. IMPRESSION: 1. Acute and comminuted nondisplaced left acetabular fractures with additional fractures of the left superior and inferior pubic rami. 2. Healing subacute right-sided rib fractures with unchanged alignment compared to 01/06/2024 3. Right-sided urothelial thickening with pelvocaliectasis suggestive of an ascending infection. Emerson elate with urinalysis. 4. Unchanged appearance of the subacute to chronic nondisplaced right sacral alar fracture. 5. Additional findings as above. ACT 112: Negative or not required by law. The above report was generated using voice recognition software. It may contain grammatical, syntax o r spelling errors. Electronically signed by: Gilmar Royal M.D. 02/06/2024 6:42 PM
[2024-02-06 20:08] LABS: Base Excess VBG -3.4 mEq/L; HCO3 VBG 21 mmol/L; Oxygen Saturation VBG < 60.0 %; PCO2 VBG 37 mmHg (38-50); PO2 VBG < 20 mmHg; pH VBG 7.37 (7.36-7.41)
[2024-02-06 20:14] LABS: Adenovirus F 40/41 PCR Not Detected (NotDetected); Astrovirus PCR Not Detected (NotDetected); Campylobacter PCR Not Detected (NotDetected); Cryptosporidium PCR Not Detected (NotDetected); Cyclospora cayetanensis PCR Not Detected (NotDetected); Entamoeba histolytica PCR Not Detected (NotDetected); Enteroaggregative E.coli(EAEC) Not Detected (NotDetected); Enteropathogenic E.coli (EPEC) Not Detected (NotDetected); Enterotoxigenic E.coli (ETEC) Not Detected (NotDetected); Giardia lamblia PCR Not Detected (NotDetected); Norovirus GI/GII PCR Not Detected (NotDetected); Plesiomonas shigelloides PCR Not Detected (NotDetected); Rotavirus A PCR Not Detected (NotDetected); Salmonella PCR Not Detected (NotDetected); Sapovirus PCR Not Detected (NotDetected); Shiga-like Toxin E.coli (STEC) Not Detected (NotDetected); Shigella/Enteroinvasive E.coli Not Detected (NotDetected); Vibrio cholerae PCR Not Detected (NotDetected); Vibrio species PCR Not Detected (NotDetected); Yersinia enterocolitica PCR Not Detected (NotDetected)
--- NOTE | 2024-02-06 20:18 | CT Scan Report ---
Exam(s): CT T SPINE EXAM: CT Thoracic Spine Without Intravenous Contrast CLINICAL HISTORY: Reason for exam: fall. TECHNIQUE: Axial computed tomography images of the thoracic spine without intravenous contrast. CTDI is 25.89 mGy and DLP is 1266.44 mGy-cm. Automated exposure control was utilized for the study. A dose lowering technique was utilized adhering to the principles of ALARA. COMPARISON: Chest CT 07/02/2022 FINDINGS: Vertebrae: New or worsening compression deformities at T1, T5, T7, T9, and T10. Multiple compression deformities. Some of these were present on the prior. The chronic appearing compression deformities are at T3, T4, T8, and T12. Soft tissues: Unremarkable. IMPRESSION: New or worsening compression deformities at T1, T5, T7, T9, and T10. These may be any combination of acute, subacute, or chronic. There is no significant canal stenosis. Electronically signed by: Bruce Chowdary MD 02/06/24 20:17 PM
--- NOTE | 2024-02-06 20:34 | CT Scan Report ---
Exam(s): CT L SPINE EXAM: CT Lumbar Spine Without Intravenous Contrast CLINICAL HISTORY: Reason for exam: fall. TECHNIQUE: Axial computed tomography images of the lumbar spine without intravenous contrast. CTDI is 25.89 mGy and DLP is 1266.44 mGy-cm. Automated exposure control was utilized for the study. A dose lowering technique was utilized adhering to the principles of ALARA. COMPARISON: No relevant prior studies available. FINDINGS: Vertebrae: The bones are markedly osteopenic. Marked levocurvature of the lumbar spine. Advanced multilevel degenerative disc disease and facet arthropathy. No acute fracture identified. Chronic appearing superior endplate height loss at T12. Severe spinal canal stenosis at L4- 5. Scattered foraminal stenosis of variable degrees. Soft tissues: Unremarkable. IMPRESSION: 1. No acute appearing fracture. 2. Severe spinal canal stenosis at L4-5. Electronically signed by: Bruce Chowdary MD 02/06/24 20:33 PM
[2024-02-06 20:43] LABS: Potassium 4.3 mmol/L (3.5-5.1)
[2024-02-06 20:49] LABS: Creatinine Clr Calc Pharmacy 21.1 ml/min; Est GFR (African American) 37.9 ml/min; Est GFR (Non-African American) 32.7 ml/min
[2024-02-06 21:02] LABS: Ferritin 168.7 ng/ml (8-388)
[2024-02-06 21:08] LABS: Folate (Folic Acid),Ser orPlas 19.8 ng/ml (>5.38)
[2024-02-06] MEDS ORDERED: MAGNESIUM HYDROXIDE SUSP 30 ML UDC PO PRN (21:58)
[2024-02-06] MEDS ORDERED: NALOXONE HCL 0.4 MG/1 ML VIAL/CARP IV PRN (21:58)
[2024-02-06] MEDS ORDERED: ALBUTEROL HFA 8 GM INHALER INH PRN (21:58)
[2024-02-06] MEDS ORDERED: NON-FORMULARY MEDICATION (Lidocaine 4 % Adhesive Patch,Medicated) TOP SCH (21:58)
[2024-02-06] MEDS ORDERED: bisacodyL 10 MG SUPP PR PRN (21:58)
[2024-02-06] MEDS ORDERED: MoRPHine SULFATE 2 MG/ML CARP IV PRN (21:58)
[2024-02-06] MEDS: SODIUM CHLORIDE 0.9% 1,000 ML IV SCH (22:49)
[2024-02-06] MEDS: GABAPENTIN 100 MG CAP PO SCH (23:24)
[2024-02-06] MEDS: lamoTRIgine 25 MG TAB PO SCH (23:25)
[2024-02-06] MEDS: MIRTAZAPINE TAB 15 MG TAB PO SCH (23:25)
[2024-02-06] MEDS: ACETAMINOPHEN 500 MG TAB PO SCH (23:26)
[2024-02-06] MEDS: MELATONIN 3 MG TAB PO SCH (23:26)
[2024-02-06] MEDS: NEOMYCIN/POLYMYXIN/GRAMICIDIN 10 ML BTL OP SCH (23:27)
[2024-02-07 04:08] LABS: Hematocrit (blood only) 28.1 % (37.0-47.0); Hemoglobin 8.6 g/dl (12.0-16.0); Mean Corpuscular Hgb Conc 30.6 g/dL (32.0-36.0); Mean Corpuscular Volume 94.6 fL (80.0-100.0); Mean Platelet Volume 9.7 fL (9.4-12.4); Platelet Count 335 K/uL (130-400); RDW Coefficient of Variation 14.2 % (11.5-14.5); RDW Standard Deviation 48.9 fL (36.4-46.3); Red Blood Count 2.97 M/uL (4.20-5.40); White Blood Count 8.33 K/ul (4.8-10.8)
[2024-02-07 04:30] LABS: BUN Creatinine Ratio 23.2 (10-20); Calcium 8.8 mg/dl (8.6-10.3); Creatinine Clr Calc Pharmacy 21.7 ml/min; Est GFR (African American) 39.2 ml/min; Est GFR (Non-African American) 33.8 ml/min; Magnesium 1.8 mg/dl (1.7-2.4); Potassium 4.2 mmol/L (3.5-5.1)
[2024-02-07] MEDS ORDERED: LOPERAMIDE HCL 2 MG CAP PO PRN (04:50)
[2024-02-07] MEDS: LEVOTHYROXINE SODIUM 88 MCG TABLET PO SCH (06:11)
[2024-02-07] MEDS: ADVANCED PROBIOTIC 625 MG CAPSULE PO SCH (08:26)
[2024-02-07] MEDS: METOPROLOL SUCC 50MG EXT REL TAB PO SCH (08:26)
[2024-02-07] MEDS: ARIPIprazole 1 MG/ML ORAL SOLN 150 ML BTL PO SCH (08:26)
[2024-02-07] MEDS: CYANOCOBALAMIN (B-12) 500 MCG TABLET PO SCH (08:26)
[2024-02-07] MEDS: lamoTRIgine 25 MG TAB PO SCH (08:27)
[2024-02-07] MEDS: LIDOCAINE 5% 1 PATCH TD SCH (08:33)
--- OUTSIDE RECORDS SUMMARY | 2024-02-07 13:21 | External Medical Summary ---
Author Name Unknown Address Unknown Organization [id number]:[facility] [place] [address] Laboratory Report Ordering Provider Test Date Status MUNDO MARCOS 01/23/2024 06:40:09 Final Observation Date Value Abnormality Reference (Units ) Status BUN 01/23/2024 06:40:09 65 Above high normal 6-20 (mg/dL) Final Creatinine 01/23/2024 06:40:09 1.5 Above high normal 0.5-1.0 (mg/dL) Final Glomerular filtration rate/1.73 sq M.predicted [Volume Rate/Area] in Serum, Plasma or Blood by Creatinine-based formula (CKD-EPI) 01/23/2024 06:40:09 35 Below low normal >=60 (mL/min) Final eGFR is calculated based on the CKD-EPI 2020 equation SODIUM 01/23/2024 06:40:09 141 135-146 (m mol/L) Final Potassium 01/23/2024 06:40:09 4.9 3.5-5.1 (m mol/L) Final Cl 01/23/2024 06:40:09 107 98-107 (mm ol/L) Final CO2 01/23/2024 06:40:09 24 22-32 (mmo l/L) Final Anion gap 01/23/2024 06:40:09 10 7-15 (mmol /L) Final Glucose 01/23/2024 06:40:09 102 70-120 (mg /dL) Final Calcium 01/23/2024 06:40:09 9.6 8.4-10.2 ( mg/dL) Final Performing Location [facility] [place] [address]
--- OUTSIDE RECORDS SUMMARY | 2024-02-07 13:21 | External Medical Summary ---
Author Name Unknown Address Unknown Organization [id number]:[facility] [place] [place] [address] Laboratory Report Ordering Provider Test Date Status MUNDO MARCOS 01/16/2024 06:05:00 Final Observation Date Value Abnormality Reference (Units ) Status BUN 01/16/2024 06:05:00 54 Above high normal 6-20 (mg/dL) Final Creatinine 01/16/2024 06:05:00 1.7 Above high normal 0.5-1.0 (mg/dL) Final Glomerular filtration rate/1.73 sq M.predicted [Volume Rate/Area] in Serum, Plasma or Blood by Creatinine-based formula (CKD-EPI) 01/16/2024 06:05:00 30 Below low normal >=60 (mL/min) Final eGFR is calculated based on the CKD-EPI 2020 equation SODIUM 01/16/2024 06:05:00 141 135-146 (m mol/L) Final Potassium 01/16/2024 06:05:00 5.1 3.5-5.1 (m mol/L) Final Cl 01/16/2024 06:05:00 107 98-107 (mm ol/L) Final CO2 01/16/2024 06:05:00 23 22-32 (mmo l/L) Final Anion gap 01/16/2024 06:05:00 11 7-15 (mmol /L) Final Glucose 01/16/2024 06:05:00 102 70-120 (mg /dL) Final Calcium 01/16/2024 06:05:00 9.6 8.4-10.2 ( mg/dL) Final Performing Location [facility] [place] [address]
--- OUTSIDE RECORDS SUMMARY | 2024-02-07 13:21 | External Medical Summary ---
Author Name Unknown Address Unknown Organization [id number]:[facility] [place] [address] Laboratory Report Ordering Provider Test Date Status MUNDO MARCOS 01/22/2024 06:30:00 Final Observation Date Value Abnormality Reference (Units ) Status WBC, Total 01/22/2024 06:30:00 4.88 4.00-10.8 0 (K/uL) Final RBC 01/22/2024 06:30:00 3.87 3.85-5.15 (M/uL) Final Hemoglobin 01/22/2024 06:30:00 11.3 Below low normal 12 .0-15.3 (g/dL) Final HCT 01/22/2024 06:30:00 38.5 36.0-45.2 (%) Final MCV 01/22/2024 06:30:00 99.5 81.5-97.5 (fL) Final MCH 01/22/2024 06:30:00 29.2 27.0-34.0 (pg) Final MCHC 01/22/2024 06:30:00 29.4 32.0-36.0 (g/dL) Final RDW 01/22/2024 06:30:00 14.9 11.5-15.5 (%) Final Platelets 01/22/2024 06:30:00 259 140-400 (K /uL) Final MPV 01/22/2024 06:30:00 9.7 6.6-11.1 ( fL) Final Performing Location [facility] [place] [address]
--- OUTSIDE RECORDS SUMMARY | 2024-02-07 13:21 | External Medical Summary ---
Author Name Unknown Address Unknown Organization K09:[facility] [place] [address] Laboratory Report Ordering Provider Test Date Status MUNDO MARCOS 01/22/2024 06:30:00 Final Observation Date Value Abnormality Reference (Units ) Status BUN 01/22/2024 06:30:00 59 Above high normal 6-20 (mg/dL) Final Creatinine 01/22/2024 06:30:00 1.6 Above high normal 0.5-1.0 (mg/dL) Final Glomerular filtration rate/1.73 sq M.predicted [Volume Rate/Area] in Serum, Plasma or Blood by Creatinine-based formula (CKD-EPI) 01/22/2024 06:30:00 33 Below low normal >=60 (mL/min) Final eGFR is calculated based on the CKD-EPI 2020 equation SODIUM 01/22/2024 06:30:00 142 135-146 (m mol/L) Final Potassium 01/22/2024 06:30:00 5.4 Above high normal 3. 5-5.1 (mmol/L) Final Cl 01/22/2024 06:30:00 107 98-107 (mm ol/L) Final CO2 01/22/2024 06:30:00 25 22-32 (mmo l/L) Final Anion gap 01/22/2024 06:30:00 10 7-15 (mmol /L) Final Glucose 01/22/2024 06:30:00 104 70-120 (mg /dL) Final Calcium 01/22/2024 06:30:00 9.9 8.4-10.2 ( mg/dL) Final Performing Location [facility] [place] [address]
--- OUTSIDE RECORDS SUMMARY | 2024-02-07 13:21 | External Medical Summary ---
Author Name Unknown Address Unknown Organization K09:[facility] [place] [address] Laboratory Report Ordering Provider Test Date Status MUNDO MARCOS 01/16/2024 06:05:00 Final Observation Date Value Abnormality Reference (Units ) Status WBC, Total 01/16/2024 06:05:00 5.99 4.00-10.8 0 (K/uL) Final RBC 01/16/2024 06:05:00 3.96 3.85-5.15 (M/uL) Final Hemoglobin 01/16/2024 06:05:00 11.6 Below low normal 12 .0-15.3 (g/dL) Final HCT 01/16/2024 06:05:00 38.4 36.0-45.2 (%) Final MCV 01/16/2024 06:05:00 97.0 81.5-97.5 (fL) Final MCH 01/16/2024 06:05:00 29.3 27.0-34.0 (pg) Final MCHC 01/16/2024 06:05:00 30.2 32.0-36.0 (g/dL) Final RDW 01/16/2024 06:05:00 14.3 11.5-15.5 (%) Final Platelets 01/16/2024 06:05:00 292 140-400 (K /uL) Final MPV 01/16/2024 06:05:00 10.0 6.6-11.1 ( fL) Final Performing Location [facility] [place] [address]
--- NOTE | 2024-02-07 13:24 | Orthopedic Consultation ---
Date of Service February 07, 2024 Assessment & Plan (1) Closed compression fracture of thoracic vertebra: Patient presentation and plan discussed with Dr. Mckinnon. I had a long discussion today with the patient about her thoracic spine pathology with ample amount of time for her to ask any questions or state any concerns. All questions and concerns were answered to the patient's satisfaction. At this point regarding her thoracic compression fractures, she is asymptomatic at this point and can be treated nonoperatively. She may continue being weightbearing as tolerated from a spine standpoint. She may work with PT/OT once cleared from general orthopedics. Oral analgesics as needed per primary. Medical management per primary. She can follow-up with Dr. Mckinnon in the next 2 to 4 weeks for fracture follow-up. Please see Dr. Mckinnon amendment for any other recommendations. Please reach out by [place] text or to [facility] orthopedics if this patient's situation is to change. History of Present Illness Reason for Consultation: . Thoracic compression fractures Requesting Physician: . Attending Physician: Era Ureña MD . Patient is an 83-year-old female who presented to the emergency department yesterday evening after sustaining multiple falls. While she was in the emergency department, they completed a CT scan of her thoracic spine which showed new compression fractures as well as chronic appearing compression fractures throughout her thoracic spine. She notes that she has not had any pain whatsoever in her back. She notes that most of her discomfort is at her hip right now due to a recent fracture of the acetabulum. She does have chronic paresthesias in the bilateral feet which is not new. She denies any other complaints at this point. Allergies Allergy/AdvReac Type Severity Reaction Status Date / Time Penicillins Allergy Unknown RASH Verified 02/06/24 17:29 albuterol [From ProAir HFA] AdvReac Intermediate Dizziness Verified 02/06/24 17:29 Home Medications Medication Instructions Recorded Confirmed Type lamotrigine 25 mg tablet (Lamictal) 25 mg PO HS 08/12/20 02/06/24 History acetaminophen 500 mg tablet 500 mg PO Q6H PRN Pain 08/26/20 02/06/24 History (Tylenol Extra Strength) levothyroxine 88 mcg tablet 88 mcg PO DAILYBB 12/09/20 02/06/24 History (Synthroid) aripiprazole 2 mg tablet (Abilify) 2 mg PO QAM ##0 07/02/22 02/06/24 History lorazepam 0.5 mg tablet 0.5 mg PO BID Anxiety 07/02/22 02/06/24 History melatonin 3 mg tablet 3 mg PO HS ##0 07/02/22 02/06/24 History lamotrigine 100 mg tablet 50 mg PO QAM 01/06/24 02/06/24 History albuterol sulfate 90 mcg/actuation 1 puff inhalation QID PRN 01/14/24 02/06/24 Rx aerosol inhaler (Ventolin HFA) shortness of breath or wheezing #6.7 grams cyanocobalamin (vitamin B-12) 500 1,000 mcg (2 x 500 mcg) PO QAM #30 01/14/24 02/06/24 Rx mcg tablet tabs metoprolol succinate 50 mg 50 mg PO QAM #30 tabs 01/14/24 02/06/24 Rx tablet,extended release 24 hr oxycodone-acetaminophen 5 mg-325 1 tab PO Q12H PRN pain #14 tabs 01/14/24 02/06/24 Rx mg tablet (Percocet) gabapentin 100 mg capsule 100 mg PO HS 02/06/24 02/06/24 History lidocaine 4 % topical patch 0.5 patch topical DAILY 02/06/24 02/06/24 History mirtazapine 7.5 mg tablet 7.5 mg PO HS 02/06/24 02/06/24 History neomycin 1.75 mg-polymyxin 10,000 1 drp ophthalmic (eye) BID 02/06/24 02/06/24 History unit-gramicidin 0.025mg/mL eye drops Past Med/Surg History Medical History (Updated 02/06/24 @ 21:08 by Vladimir Saavedra DO) UTI (urinary tract infection) Generalized pain Intractable pain Hypothyroidism Bipolar disorder Neuropathy CKD (chronic kidney disease), stage IV S/p nephrectomy Tobacco abuse COPD (chronic obstructive pulmonary disease) Osteoarthritis Malignant tumor of urinary bladder Malignant tumor of kidney COPD (chronic obstructive pulmonary disease) Dizziness Altered mental status History of kidney cancer Bladder cancer CKD (chronic kidney disease), stage IV Tobacco abuse Urothelial cancer (~2010) Surgical History History of partial hysterectomy H/O dilation and curettage Hx of total knee arthroplasty S/p nephrectomy "Left" H/O: hysterectomy Family History Aunt Heart disease [place] in her 50s Mother Breast cancer Father Prostate cancer Social History Smoking Status: Former smoker Tobacco Type: Cigarettes Cigarettes Per Day: 5; Second Hand Exposure: No; Do You Dip or Chew Tobacco: No; Hx Alcohol Use: No Hx Substance Use: No Preferred Language: Mosotho Communication Ability: Effective Visual Impairment: No Limitations Hearing Ability: Normal Ultimate Hoops Scoreboard Operator Required: No Beliefs That Will Affect Care: None marital status: / Current Living Situation: Personal Care Facility Current Living Situation Comment: [facility] How many Children do You have: 1 Feels Safe at Home: Yes Safety Concerns: Feels Safe At This Time Assistive Devices: Walker Review of Systems All systems reviewed & are unremarkable except as noted in HPI & below. Physical Exam .General: no acute distress, chronically ill, thin elderly female Head: normocephalic, atraumatic Eyes: PERRL, EOM's intact, conjunctiva non-injected, anicteric ENT: normal inspection external ears, nose, mucous membranes moist Neck: supple, trachea midline,+tender to palpation distal posterior neck and upper thoracic region Lungs: clear, no respiratory distress, no wheezing/rhonchi/rales CV: RRR, no pretibial edema Abd: normal BS, soft, non-tender. No CVA tenderness to palpation Neuro: Alert and oriented to person, place and time, no focal deficits noted, normal affect Skin: warm, dry Musculoskeletal Examination of the thoracic spine shows no erythema, ecchymosis, edema, or other obvious deformities. Nontender to palpation over the spinal processes or paravertebral musculature. No discomfort with flexion extension and twisting. Discomfort with motor function to the left lower extremity secondary to acetabular fracture. Right lower extremity motor and sensory grossly intact. Chronic paresthesias to the bilateral feet. +2 DP and PT pulses. Less than 2-s econd capillary refill. Otherwise normal sensation and neurovascularly intact. Results & Data Results & Data Laboratory Results . Diagnostic Findings . Cervical Spine CT 02/06/24 13:53 CT cervical spine wo con CLINICAL HISTORY: 83 years-old Female with call. Acute head and neck injury status post fall COMPARISON: CT cervical spine 08/26/2020, chest CT 07/02/2022 TECHNIQUE: Multiple axial CT images of the cervical spine were obtained without contrast. A dose lowering technique was utilized adhering to the principles of ALARA. FINDINGS: No acute cervical spine fracture or subluxation identified. No prev ertebral edema. There are advanced multilevel degenerative changes. There is 4 mm anterolisthesis of C3 on C4 which is felt to be degenerative. There is spinal stenosis most pronounced the C4-5 level. There is foraminal narrowing most pronounced at the C4-5 and C5-C6 levels. No pneumothorax. Partially imaged left subclavian pacer leads. Mild acute versus subacute T1 compression deformity without retropulsion, which was not present on the 07/02/2022 exam. IMPRESSION: 1. No acute cervical spine fracture or subluxation. 2. Mild acute versus subacute T1 compression deformity without retropulsion. ACT 112: Negative or not required by law. The above report was generated using voice recognition software. It may contain grammatical, syntax or spelling errors. Electronically signed by: Gilmar Royal M.D. 02/06/2024 6:25 PM Chest X-Ray 02/06/24 13:53 XR chest 1V portable HISTORY: 83 years-old Female fall acute chest trauma status post fall COMPARISON: 01/06/2024 TECHNIQUE: AP view the chest FINDINGS: Cardiac silhouette is enlarged. Unchanged positioning of the left subclavian Anitir-k-Lmzy catheter. Moderate hemidiaphragmatic elevation. Chronic interstitial coarsening. No pneumothorax, pleural effusion or airspace consolidation. Bones appear grossly intact. IMPRESSION: Unchanged appearance of the chest without acute process identified. ACT 112: Negative or not required by law. The above report was generated using voice recognition software. It may contain grammatical, syntax or spelling errors. Electronically signed by: Gilmar Royal M.D. 02/06/2024 2:[address] 02/06/24 13:53 CT head/brain wo con CLINICAL HISTORY: 83 years-old Female with fall. Acute head and neck injury status post fall TECHNIQUE: Multiple axial CT images of the head were obtained without contrast. A dose lowering technique was utilized adhering to the principles of ALARA. CT DOSE: 1689.18 mGy.cm COMPARISON: CT cervical spine same day, head CT 01/06/2024 FINDINGS: No acute intracranial hemorrhage, midline shift, intracranial mass, hydrocephalus, territorial ischemia or abnormal extra-axial collection. Motion degraded exam. Involutional changes with chronic microvascular ischemic disease. The calvarium is intact. Minimal mucosal thickening of the paranasal sinuses. Mastoid air cells are clear. IMPRESSION: No acute intracranial abnormality or calvarial fracture. ACT 112: Negative or not required by law. The above report was generated using voice recognition software. It may contain grammatical, syntax or spelling errors. Electronically signed by: Gilmar Royal M.D. 02/06/2024 6:18 PM Hip/Pelvis X-Ray 02/06/24 13:53 XR hip LT 2V w pelvis CLINICAL HISTORY: Left hip pain following fall. COMPARISON: CT of the abdomen and pelvis January 06, 2024. Pelvis and left hip radiographs July 18, 2019. FINDINGS: Bladder stimulator, pelvic surgical clips and left femoral internal fixation hardware are incidentally noted. Sacroiliac joints and symphysis pubis are intact. There is no acute fracture within the pelvis or hips. There is a healed intertrochanteric fracture of the left femur. IMPRESSION: No acute fractures within the pelvis or hips. ACT 112: Negative or not required by law. Electronically signed by: Lamont Alcazar M.D. 02/06/2024 2:54 PM Knee X-Ray 02/06/24 13:53 XR knee LT 1 or 2V routine CLINICAL HISTORY: l knee TECHNIQUE: 2 views of the left knee were obtained. Comparison: Comparison is made to knee radiographs 07/18/2019 FINDINGS: There is no evidence of an acute fracture. Patient is status post total knee arthroplasty. No perihardware lucency or hardware fracture is seen. No joint effusion is seen. No soft tissue abnormality is seen. IMPRESSION: No acute abnormality. Hardware is satisfactory in appearance. ACT 112: Negative or not required by law. Electronically signed by: Ranjan Garcia M.D. 02/06/2024 2:[address] 02/06/24 18:58 Exam(s): CT L SPINE EXAM: CT Lumbar Spine Without Intravenous Contrast CLINICAL HISTORY: Reason for exam: fall. TECHNIQUE: Axial computed tomography images of the lumbar spine without intravenous contrast. CTDI is 25.89 mGy and DLP is 1266.44 mGy-cm. Automated exposure control was utilized for the study. A dose lowering technique was utilized adhering to the principles of ALARA. COMPARISON: No relevant prior studies available. FINDINGS: Vertebrae: The bones are markedly osteopenic. Marked levocurvature of the lumbar spine. Advanced multilevel degenerative disc disease and facet arthropathy. No acute fracture identified. Chronic appearing superior endplate height loss at T12. Severe spinal canal stenosis at L4- 5. Scattered foraminal stenosis of variable degrees. Soft tissues: Unremarkable. IMPRESSION: 1. No acute appearing fracture. 2. Severe spinal canal stenosis at L4-5. Electronically signed by: Bruce Chowdary MD 02/06/24 20:[address] 02/06/24 18:58 Exam(s): CT T SPINE EXAM: CT Thoracic Spine Without Intravenous Contrast CLINICAL HISTORY: Reason for exam: fall. TECHNIQUE: Axial computed tomography images of the thoracic spine without intravenous contrast. CTDI is 25.89 mGy and DLP is 1266.44 mGy-cm. Automated exposure control was utilized for the study. A dose lowering technique was utilized adhering to the principles of ALARA. COMPARISON: Chest CT 07/02/2022 FINDINGS: Vertebrae: New or worsening compression deformities at T1, T5, T7, T9, and T10. Multiple compression deformities. Some of these were present on the prior. The chronic appearing compression deformities are at T3, T4, T8, and T12. Soft tissues: Unremarkable. IMPRESSION: New or worsening compression deformities at T1, T5, T7, T9, and T10. These may be any combination of acute, subacute, or chronic. There is no significant canal stenosis. Electronically signed by: Bruce Chowdary MD 02/06/24 20:17 PM PG Care Time/CCT Total # of Minutes Spent Total Time Spent with Patient: Total time spent is greater than 50% in coordination of care (as documented) at patient's floor/unit and/or counseling patient: Coding Level of Care Code 85041 IN/OBS CONSULT LVL 3,45M Diagnoses Closed compression fracture of thoracic vertebra S22.000A Additional Codes Fx Spine - Vertebral body: Vertebral Body ([id number])
[2024-02-07] MEDS: oxyCODONE HCL IR 5 MG TAB (IMMEDIATE RELEASE) PO PRN (15:15)
--- NOTE | 2024-02-07 16:12 | Hospitalist Progress Note ---
Date of Service February 07, 2024 Assessment & Plan (1) Frequent falls: (2) Acetabular fracture: (3) Pubic bone fracture: (4) Closed compression fracture of thoracic vertebra: (5) Osteoporosis: (6) UTI (urinary tract infection): (7) Diarrhea: (8) Anemia: (9) CKD (chronic kidney disease), stage IV: (10) Wide-complex tachycardia: (11) Orthostatic hypotension: (12) COPD (chronic obstructive pulmonary disease): (13) Chronic pain syndrome: (14) Hypothyroidism: (15) Bipolar disorder: Plan: (16) Malnutrition: Plan: Patient is 83-year-old female with PMH COPD, CKD IV, hypothyroidism, bipolar disorder, chronic pain, malnutrition, history of wide-complex tachycardia, LBBB, recurrent falls, history of orthostatic hypotension and others listed below presented to ER from [facility] for recurrent falls. CT head: No acute intracranial abnormality or calvarial fracture. CT C-spine: No acute cervical spine fracture or subluxation. Mild acute versus subacute T1 compression deformity without retropulsion. CT thoracic spine: New or worsening compression deformities at T1, T5, T7, T9, and T10. These may be any combination of acute, subacute, or chronic. There is no significant canal stenosis CT lumbar spine: No acute appearing fracture. Severe spinal canal stenosis at L4-5. CT abdomen pelvis: Acute and comminuted nondisplaced left acetabular fractures with additional fractures of the left superior and inferior pubic rami. Healing subacute right-sided rib fractures with unchanged alignment compared to 01/06/2024. Right-sided urothelial thickening with pelvocaliectasis suggestive of an ascending infection. Correlate with urinalysis. Unchanged appearance of the subacute to chronic nondisplaced right sacral alar fracture. X-ray left knee: No acute abnormality. Hardware is satisfactory in appearance. Hip/pelvis x-ray:No acute fractures within the pelvis or hips. #Acute on chronic anemia Hgb: 9.6. --> 8.6 (s/p 1 L bolus in Ed) Was 11.2 on 01/13/2024 Potentially related to trauma 2/2 fracture Patient denies noted melena, hematochezia, hematuria B12 1486, folate 19, iron 20 ferritin 163 Continue home B12 FOBT Trend CBC, transfuse <7 #Diarrhea -Stool pcr negative -Reports improvement 3 episodes of loose diarrhea in ER #Acute complicated cystitis -potentially contributing to presentation, CT imaging with urothelial thickening consistent with pelvocaliectasis c/w ascending infection UA: + Nitrate, 2+ leuk esterase,> 30 WBC, 2+ bacteria Patient denies urinary symptoms In ER given Rocephin, 1L NSS Continue Rocephin for now Urine culture pending #Acute on chronic compression fractures T1, 5,7,8,10 #Severe spinal canal stenosis L4-L5 #Acute comminuted left acetabular fractures #Acute left superior/inferior pubic rami #Chronic Nondisplaced Right Sacral Ala Fracture #Healing right sided rib fractures #Recurrent Falls #Chronic Pain/chronic neuropathy New fractures since discharge on 01/13 12/28 multiple falls Pain control with tylenol scheduled, lidocaine patches, and oxycodone/morphine as needed Orthopedics consulted -Spine: weight bearing as tolerated, plan for follow up with Dr. Mckinnon OP in 2-4 weeks for follow up -Pending ortho recommendations regarding other fracture stability and PT/OT recommendations #Hypertension #history of orthostatic hypotension #History of Torsades/ Wide complex tachycardia #LBBB (last admission 12/2023) --Normal TSH --Initial troponin negative --ECHO 12/2023: Left ventricle is normal in size. Moderate concentric LVH. Basal septum is thickened and angulated consistent with sigmoid septum. Septal motion is consistent with conduction abnormality. Wall motion is otherwise normal. EF 60 to 60%. Grade 1 diastolic dysfunction. Aortic valve sclerosis moderate, without significant aortic valve stenosis. Focal calcification of the left coronary cusp. Mild mitral annular calcification. Moderate mitral regurgitation. Mitral regurgitation jet is eccentrically directed. Trace tricuspid regurgitation -Continue Metoprolol XL 50mg qam Monitor and replace electrolytes as needed Conservative management Avoid QTc prolonging medications EKG, monitor on tele #CKDIII -GFR in 30s usually, Cr 1.45, stable Encourage po Repeat BMP in am #Bilateral shoulder pain #Chronic arthralgias Likely secondary to arthritis Pain is worse with movement Continue tylenol Added low dose oxycodone, adjust as tolerated Diclofenac sodium trial #Severe protein calorie malnutrition -BMI 18, thin, cachectic -Encourage PO intake, continue mirtazepine #Hypothyroidism -Continue home Synthroid #COPD with emphysema -Stable, albuterol prn #Bipolar d/o -Continue lamictal; continue aripiprazole DVT Prophylaxis SCDs for now DNR/DNI as per discussion with pt Follows with Dr Quezada for routine care Admission and Anticipated Discharge Date Admission Date: February 06, 2024 Subjective No acute events overnight States that she fell because of "malfunctioning wheelchair" and that she just feels dizzy often Worried about any discussion regarding possible surgery Denies chest pain, uncontrolled pain, or other acute concerns at this time Physical Exam Constitutional: WD/WN, vitals as above (laying on right side as most comfortable position, discomfort with sitting ) Respiratory: normal respiratory effort, lungs clear to auscultation Cardiovascular: RRR, no murmur, no edema Gastrointestinal (Abdomen): normal bowel sounds, soft, nontender, no hepatosplenomegaly Neurologic: PERRL, EOMI, accommodation nl, no face palsy, no dysarthria Results & Data Results & Data Vital Signs (Past 12 Hours) Vital Signs Temp Pulse Pulse Resp BP Pulse Ox O2 Del Method 02/07/24 15:04 36.6 C 88 18 125/67 97 Room Air 02/07/24 13:11 70 18 112/77 94 Nasal Cannula 02/07/24 08:49 Nasal Cannula 02/07/24 08:34 82 22 157/81 H 95 Nasal Cannula 02/07/24 07:35 74 18 112/68 97 Nasal Cannula 02/07/24 07:14 69 02/07/24 06:00 75 16 122/71 97 Nasal Cannula O2 Flow Rate 02/07/24 15:04 02/07/24 13:11 2 02/07/24 08:49 2 02/07/24 08:34 2 02/07/24 07:35 2 02/07/24 07:14 02/07/24 06:00 2 Laboratory Results Short CBC 02/06/24 02/07/24 Range/Units 14:41 03:30 WBC 10.31 8.33 (4.8-10.8) K/ul Hgb 9.6 L 8.6 L (12.0-16.0) g/dl Hct 31.3 L 28.1 L (37.0-47.0) % Plt Count 383 335 (130-400) K/uL BMP 02/06/24 02/06/24 02/07/24 14:41 19:58 03:30 Sodium 140 140 142 Potassium 4.5 4.3 4.2 Chloride 108 H 110 H 114 H Carbon Dioxide 20 L 20 L 19 L BUN 44 H 38 H 33 H Creatinine 1.65 H 1.46 H 1.42 H Glucose 121 H 99 105 H Calcium 9.2 9.0 8.8 Liver Function 02/06/24 Range/Units 14:41 Total Bilirubin 0.4 (0.2-1.0) mg/dl AST 14 (13-39) U/L ALT 9 (7-52) U/L Alkaline Phosphatase 88 (34-104) U/L Albumin 3.7 (3.4-5.0) gm/dl Urine 02/06/24 Range/Units 15:30 Urine Color Yellow Urine Appearance Cloudy A (Clear) Urine pH 6.5 (4.5-7.5) Ur Specific [place] 1.012 (1.000-1.030) Urine Protein 1+ H (Negative) Urine Glucose (UA) Negative (Negative) Medications Administered Home Medications Medication Instructions Recorded Confirmed Last Taken lamotrigine 25 mg tablet (Lamictal) 25 mg PO HS 08/12/20 02/06/24 02/05/24 acetaminophen 500 mg tablet 500 mg PO Q6H PRN Pain 08/26/20 02/06/24 02/19/22 (Tylenol Extra Strength) levothyroxine 88 mcg tablet 88 mcg PO DAILYBB 12/09/20 02/06/24 02/06/24 (Synthroid) aripiprazole 2 mg tablet (Abilify) 2 mg PO QAM ##0 07/02/22 02/06/24 02/06/24 lorazepam 0.5 mg tablet 0.5 mg PO BID Anxiety 07/02/22 02/06/24 02/06/24 08:00 melatonin 3 mg tablet 3 mg PO HS ##0 07/02/22 02/06/24 02/05/24 lamotrigine 100 mg tablet 50 mg PO QAM 01/06/24 02/06/24 02/06/24 albuterol sulfate 90 mcg/actuation 1 puff inhalation QID PRN 01/14/24 02/06/24 Unknown aerosol inhaler (Ventolin HFA) shortness of breath or wheezing #6.7 grams cyanocobalamin (vitamin B-12) 500 1,000 mcg (2 x 500 mcg) PO QAM #30 01/14/24 02/06/24 02/06/24 mcg tablet tabs metoprolol succinate 50 mg 50 mg PO QAM #30 tabs 01/14/24 02/06/24 02/06/24 tablet,extended release 24 hr oxycodone-acetaminophen 5 mg-325 1 tab PO Q12H PRN pain #14 tabs 01/14/24 02/06/24 Unknown mg tablet (Percocet) gabapentin 100 mg capsule 100 mg PO HS 02/06/24 02/06/24 02/05/24 lidocaine 4 % topical patch 0.5 patch topical DAILY 02/06/24 02/06/24 02/06/24 mirtazapine 7.5 mg tablet 7.5 mg PO HS 02/06/24 02/06/24 02/05/24 neomycin 1.75 mg-polymyxin 10,000 1 drp ophthalmic (eye) BID 02/06/24 02/06/24 02/06/24 08:00 unit-gramicidin 0.025mg/mL eye drops Active Medications Generic Name Dose Route Start Last Admin Trade Name Freq PRN Reason Stop Dose Admin Acetaminophen 1,000 mg 02/06/24 22:00 02/07/24 14:34 Acetaminophen 500 Mg Tab PO 03/07/24 21:59 1,000 mg Q8H EDUARDO Administration Aripiprazole 2 mg 02/07/24 09:00 02/07/24 08:26 Aripiprazole 1 Mg/Ml Oral Soln 150 Ml Btl PO 03/08/24 08:59 2 mg QAM EDUARDO Administration Cyanocobalamin 1,000 mcg 02/07/24 09:00 02/07/24 08:26 Cyanocobalamin (B-12) 500 Mcg Tablet PO 03/08/24 08:59 1,000 mcg QAM EDUARDO Administration Gabapentin 100 mg 02/06/24 21:58 02/06/24 23:24 Gabapentin 100 Mg Cap PO 03/07/24 21:57 100 mg HS EDUARDO Administration Lactobacillus Acidophilus 1,250 mg 02/07/24 09:00 02/07/24 08:26 Advanced Probiotic 625 Mg Capsule PO 03/08/24 08:59 1,250 mg DAILY EDUARDO Administration Lamotrigine 50 mg 02/07/24 09:00 02/07/24 08:27 Lamotrigine 25 Mg Tab PO 03/08/24 08:59 50 mg QAM EDUARDO Administration Protocol Lamotrigine 25 mg 02/06/24 21:58 02/06/24 23:25 Lamotrigine 25 Mg Tab PO 03/07/24 21:57 25 mg HS EDUARDO Administration Protocol Levothyroxine Sodium 88 mcg 02/07/24 06:30 02/07/24 06:11 Levothyroxine Sodium 88 Mcg Tablet PO 03/08/24 06:29 88 mcg DAILYBB EDUARDO Administration Lidocaine 1 patch 02/07/24 09:00 02/07/24 08:33 Lidocaine 5% 1 Patch TD 03/08/24 08:59 Not Given DAILY EDUARDO Melatonin 3 mg 02/06/24 21:58 02/06/24 23:26 Melatonin 3 Mg Tab PO 03/07/24 21:57 3 mg HS EDUARDO Administration Metoprolol Succinate 50 mg 02/07/24 09:00 02/07/24 08:26 Metoprolol Succ 50mg Ext Rel Tab PO 03/08/24 08:59 50 mg QAM EDUARDO Administration Mirtazapine 7.5 mg 02/06/24 21:58 02/06/24 23:25 Mirtazapine Tab 15 Mg Tab PO 03/07/24 21:57 7.5 mg HS EDUARDO Administration Neomycin/Polymyxin/Gramicidin 1 drops 02/06/24 21:58 02/07/24 08:32 Neomycin/Polymyxin/Gramicidin 10 Ml Btl OP 03/07/24 21:57 1 drops BID EDUARDO Administration Oxycodone HCl 5 mg 02/06/24 21:58 02/07/24 15:15 Oxycodone Hcl Ir 5 Mg Tab (Immediate Release) PO 02/20/24 21:57 5 mg Q6H PRN Administration Moderate Pain (Scale 4, 5, 6) (12) COPD (chronic obstructive pulmonary disease) COPD type: unspecified COPD Qualified Code(s): J44.9 - Chronic obstructive pulmonary disease, unspecified (14) Hypothyroidism Hypothyroidism type: unspecified Qualified Code(s): E03.9 - Hypothyroidism, unspecified
[2024-02-07] MEDS: DICLOFENAC SOD 1% GEL 100 GM TUBE EXT SCH (18:02)
[2024-02-07] MEDS: cefTRIAXone SODIUM 2,000 MG in DEXTROSE 5 % MINI-B 50 ML IV SCH (18:10)
[2024-02-07] MEDS: MoRPHine SULFATE IR 15 MG TAB (IMMEDIATE RELEASE) PO PRN (22:04)
[2024-02-08 08:23] LABS: Hematocrit (blood only) 31.2 % (37.0-47.0); Hemoglobin 9.3 g/dl (12.0-16.0); Mean Corpuscular Hemoglobin 28.6 pg (25.0-34.0); Mean Corpuscular Hgb Conc 29.8 g/dL (32.0-36.0); Mean Platelet Volume 9.2 fL (9.4-12.4); Platelet Count 404 K/uL (130-400); RDW Coefficient of Variation 13.8 % (11.5-14.5); RDW Standard Deviation 49.1 fL (36.4-46.3); Red Blood Count 3.25 M/uL (4.20-5.40); White Blood Count 7.87 K/ul (4.8-10.8)
[2024-02-08 08:33] LABS: Calcium 9.2 mg/dl (8.6-10.3); Potassium 4.1 mmol/L (3.5-5.1)
[2024-02-08 08:39] LABS: BUN Creatinine Ratio 17.1 (10-20); Creatinine Clr Calc Pharmacy 21.2 ml/min; Est GFR (African American) 36.1 ml/min; Est GFR (Non-African American) 31.2 ml/min
--- NOTE | 2024-02-08 13:56 | Pain Management Consultation ---
Date of Consultation February 08, 2024 Assessment & Plan (1) Weakness: (2) Recurrent falls: (3) Closed compression fracture of thoracic vertebra: (4) Acetabular fracture: Encounter type: initial encounter Fracture alignment: nondispla yeyo Fracture type: closed Laterality: left Sublocation of acetabulum: unspecified portion of acetabulum Qualified Code(s): S32.402A - Unspecified fracture of left acetabulum, initial encounter for closed fracture Plan 1. Orthotics referral has been placed for a TSLO back brace. 2. Physical therapy order has been placed. 3. I have discontinued oxycodone and MS IR prescriptions due to patient reporting drowsiness and unsteadiness. 4. Continue gabapentin 100 mg daily and lidocaine patches. 5. I have initiated the patient on Nucynta IR 50 mg every 4 hours if needed for pain relief. 6. Nothing to offer interventionally. Will sign off on the patient. Please contact the office should there be any questions or concerns. History of Present Illness Reason for Consultation: "All over pain" Attending Physician: Shreya Sher MD History of Present Illness This is an 83-year-old female that has been admitted to the [facility] for frequent falls, acetabular fracture, pubic bone fracture, and multiple thoracic compression fractures. She states that the pain is "all over but mostly located along the thoracic region. No true radicular symptoms. Current medication regimen includes oxycodone 5 mg every 6 hours, MS IR 7.5 mg every 12 hours, gabapentin 100 mg daily, and lidocaine patches. She states that the oxycodone and MS IR are causing unsteadiness and drowsiness and she is concerned that she may sustain even more falls while taking these medications. Patient was evaluated by orthopedic surgery and recommended that she be treated nonoperatively. Allergies Allergy/AdvReac Type Severity Reaction Status Date / Time Penicillins Allergy Unknown RASH Verified 02/06/24 17:29 albuterol [From ProAir HFA] AdvReac Intermediate Dizziness Verified 02/06/24 17:29 Home Medications Medication Instructions Recorded Confirmed Type lamotrigine 25 mg tablet (Lamictal) 25 mg PO HS 08/12/20 02/06/24 History acetaminophen 500 mg tablet 500 mg PO Q6H PRN Pain 08/26/20 02/06/24 History (Tylenol Extra Strength) levothyroxine 88 mcg tablet 88 mcg PO DAILYBB 12/09/20 02/06/24 History (Synthroid) aripiprazole 2 mg tablet (Abilify) 2 mg PO QAM ##0 07/02/22 02/06/24 History lorazepam 0.5 mg tablet 0.5 mg PO BID Anxiety 07/02/22 02/06/24 History melatonin 3 mg tablet 3 mg PO HS ##0 07/02/22 02/06/24 History lamotrigine 100 mg tablet 50 mg PO QAM 01/06/24 02/06/24 History albuterol sulfate 90 mcg/actuation 1 puff inhalation QID PRN 01/14/24 02/06/24 Rx aerosol inhaler (Ventolin HFA) shortness of breath or wheezing #6.7 grams cyanocobalamin (vitamin B-12) 500 1,000 mcg (2 x 500 mcg) PO QAM #30 01/14/24 02/06/24 Rx mcg tablet tabs metoprolol succinate 50 mg 50 mg PO QAM #30 tabs 01/14/24 02/06/24 Rx tablet,extended release 24 hr oxycodone-acetaminophen 5 mg-325 1 tab PO Q12H PRN pain #14 tabs 01/14/24 02/06/24 Rx mg tablet (Percocet) gabapentin 100 mg capsule 100 mg PO HS 02/06/24 02/06/24 History lidocaine 4 % topical patch 0.5 patch topical DAILY 02/06/24 02/06/24 History mirtazapine 7.5 mg tablet 7.5 mg PO HS 02/06/24 02/06/24 History neomycin 1.75 mg-polymyxin 10,000 1 drp ophthalmic (eye) BID 02/06/24 02/06/24 History unit-gramicidin 0.025mg/mL eye drops Patient History Medical History UTI (urinary tract infection) Generalized pain Intractable pain Hypothyroidism Bipolar disorder Neuropathy CKD (chronic kidney disease), stage IV S/p nephrectomy Tobacco abuse COPD (chronic obstructive pulmonary disease) Osteoarthritis Malignant tumor of urinary bladder Malignant tumor of kidney COPD (chronic obstructive pulmonary disease) Dizziness Altered mental status History of kidney cancer Bladder cancer CKD (chronic kidney disease), stage IV Tobacco abuse Urothelial cancer (~2010) Surgical History History of partial hysterectomy H/O dilation and curettage Hx of total knee arthroplasty S/p nephrectomy "Left" H/O: hysterectomy Family History Aunt Heart disease [place] in her 50s Mother Breast cancer Father Prostate cancer Social History Smoking Status: Former smoker Tobacco Type: Cigarettes Cigarettes Per Day: 5; Second Hand Exposure: No; Do You Dip or Chew Tobacco: No; Hx Alcohol Use: No Hx Substance Use: No Preferred Language: [place] Communication Ability: Effective Visual Impairment: No Limitations Hearing Ability: Normal Staple Fiber Washer Required: No Beliefs That Will Affect Care: None marital status: / Current Living Situation: Personal Care Facility Current Living Situation Comment: [facility] How many Children do You have: 1 Feels Safe at Home: Yes Safety Concerns: Feels Safe At This Time Assistive Devices: Walker Physical Exam Physical Exam: GENERAL: This is an 83 year old thin and frail appearing female. Does not appear in any acute distress. HEAD/FACE: Normocephalic and atraumatic. EYES: No drainage or conjunctival injection. ENT: Nose without bleeding or discharge. Oral mucosa moist. NECK: Full ROM without apparent pain. No swelling or masses noted. RESPIRATORY: Patient with unlabored breathing. No signs of respiratory distress. CHEST/AXILLA: Chest movement symmetrical. No deformities noted. ABDOMEN/GI: No distension BACK: Limited ROM. No focal area of midline tenderness. SKIN: [place], warm and dry. No rash noted. MS/EXTREMITY: No swelling, no deformities. Moving extremities appropriately. NEURO: Alert and appears oriented. Speech is fluent. Cranial Nerves are grossly intact. PSYCH: Alert, pleasant, affect is calm Results (Pain Clinic) Diagnostic Review CT Findings: Exam(s): CT T SPINE EXAM: CT Thoracic Spine Without Intravenous Contrast CLINICAL HISTORY: Reason for exam: fall. TECHNIQUE: Axial computed tomography images of the thoracic spine without intravenous contrast. CTDI is 25.89 mGy and DLP is 1266.44 mGy-cm. Automated exposure control was utilized for the study. A dose lowering technique was utilized adhering to the principles of ALARA. COMPARISON: Chest CT 07/02/2022 FINDINGS: Vertebrae: New or worsening compression deformities at T1, T5, T7, T9, and T10. Multiple compression deformities. Some of these were present on the prior. The chronic appearing compression deformities are at T3, T4, T8, and T12. Soft tissues: Unremarkable. IMPRESSION: New or worsening compression deformities at T1, T5, T7, T9, and T10. These may be any combination of acute, subacute, or chronic. There is no significant canal stenosis. Electronically signed by: Bruce Chowdary MD 02/06/24 20:17 PM
--- NOTE | 2024-02-08 16:14 | Hospitalist Progress Note ---
Date of Service February 08, 2024 Assessment & Plan (1) Acetabular fracture: (2) Pubic bone fracture: (3) Closed compression fracture of thoracic vertebra: (4) Osteoporosis: (5) UTI (urinary tract infection): (6) Diarrhea: (7) Anemia: (8) CKD (chronic kidney disease), stage IV: (9) Wide-complex tachycardia: (10) Orthostatic hypotension: (11) COPD (chronic obstructive pulmonary disease): (12) Chronic pain syndrome: (13) Hypothyroidism: (14) Bipolar disorder: Plan: (15) Malnutrition: Plan: Patient is 83-year-old female with PMH COPD, CKD IV, hypothyroidism, bipolar disorder, chronic pain, malnutrition, history of wide-complex tachycardia, LBBB, recurrent falls, history of orthostatic hypotension and others listed below presented to ER from [facility] for recurrent falls. CT head: No acute intracranial abnormality or calvarial fracture. CT C-spine: No acute cervical spine fracture or subluxation. Mild acute versus subacute T1 compression deformity without retropulsion. CT thoracic spine: New or worsening compression deformities at T1, T5, T7, T9, and T10. These may be any combination of acute, subacute, or chronic. There is no significant canal stenosis CT lumbar spine: No acute appearing fracture. Severe spinal canal stenosis at L4-5. CT abdomen pelvis: Acute and comminuted nondisplaced left acetabular fractures with additional fractures of the left superior and inferior pubic rami. Healing subacute right-sided rib fractures with unchanged alignment compared to 01/06/2024. Right-sided urothelial thickening with pelvocaliectasis suggestive of an ascending infection. Correlate with urinalysis. Unchanged appearance of the subacute to chronic nondisplaced right sacral alar fracture. X-ray left knee: No acute abnormality. Hardware is satisfactory in appearance. Hip/pelvis x-ray:No acute fractures within the pelvis or hips. #Acute on chronic anemia Hgb: 9.6. --> 8.6 (s/p 1 L bolus in Ed) -> 9.3 Hgb was 11.2 on 01/13/2024 Potentially related to trauma 2/2 fracture Patient denies noted melena, hematochezia, hematuria B12 1486, folate 19, iron 20 ferritin 163 Continue home B12 FOBT Trend CBC, transfuse <7 #Diarrhea Stool pcr negative Reports improvement 3 episodes of loose diarrhea in ER #Acute complicated cystitis Potentially contributing to presentation, CT imaging with urothelial thickening consistent with pelvocaliectasis c/w ascending infection UA: + Nitrate, 2+ leuk esterase,> 30 WBC, 2+ bacteria Patient denies urinary symptoms In ER given Rocephin, 1L NSS Continue Rocephin for now Urine culture pending #Acute on chronic compression fractures T1, 5,7,8,10 #Severe spinal canal stenosis L4-L5 #Acute comminuted left acetabular fractures #Acute left superior/inferior pubic rami #Chronic Nondisplaced Right Sacral Ala Fracture #Healing right sided rib fractures #Recurrent Falls #Chronic Pain/chronic neuropathy New fractures since discharge on 01/13 2 multiple falls Pain control with tylenol scheduled, lidocaine patches, and oxycodone/morphine as needed Orthopedics consulted: -Spine: weight bearing as tolerated, plan for follow up with Dr. Mckinnon OP in 2-4 weeks for follow up -Pending ortho recommendations regarding other fracture stability and PT/OT recommendations Pain mgmt consulted: 1. Orthotics referral has been placed for a [employer] back brace (RN notified that patient is refusing to wear) 2. Physical therapy order has been placed 3. Discontinued oxycodone and MS IR prescriptions due to patient reporting drowsiness and unsteadiness 4. Continue gabapentin 100 mg daily and lidocaine patches 5. Started on Nucynta IR 50 mg every 4 hours if needed for pain relief 6. Nothing to offer interventionally #Hypertension #history of orthostatic hypotension #History of Torsades/ Wide complex tachycardia #LBBB (last admission 12/2023) --Normal TSH --Initial troponin negative --ECHO 12/2023: Left ventricle is normal in size. Moderate concentric LVH. Basal septum is thickened and angulated consistent with sigmoid septum. Septal motion is consistent with conduction abnormality. Wall motion is otherwise normal. EF 60 to 60%. Grade 1 diastolic dysfunction. Aortic valve sclerosis moderate, without significant aortic valve stenosis. Focal calcification of the left coronary cusp. Mild mitral annular calcification. Moderate mitral regurgitation. Mitral regurgitation jet is eccentrically directed. Trace tricuspid regurgitation -Continue Metoprolol XL 50mg qam Monitor and replace electrolytes as needed Conservative management Avoid QTc prolonging medications EKG with redemonstrated LBBB, ? of ST changes in anterior lead but poor quality. If develops symptoms, will repeat. Tele reviewied; no changes #CKDIII -GFR in 30s usually, Cr 1.45, stable Encourage po Repeat BMP in am #Bilateral shoulder pain #Chronic arthralgias Likely secondary to arthritis Pain mgmt as above #Severe protein calorie malnutrition -BMI 18, thin, cachectic -Encourage PO intake, continue mirtazepine #Hypothyroidism -Continue home Synthroid #COPD with emphysema -Stable, albuterol prn #Bipolar d/o -Continue lamictal; continue aripiprazole DVT Prophylaxis SCDs for now DNR/DNI as per discussion with pt Follows with Dr Quezada for routine care Patient seen in collaboration with Dr. Sher. Please see addendum. I spent a total of 45 minutes coordinating, documenting, and providing care for this patient excluding time spent in the performance of separately billed services. Admission and Anticipated Discharge Date Admission Date: February 06, 2024 Supervising Physician Co-Signing Physician Notes I have seen and discussed the case with the collaborating advanced practitioner. I agree with the above H&P. I have reviewed and confirmed the patients medical history, the findings on physical examination, and the patients diagnosis and treatment plan with PARVEEN and agree with the information documented. In short, Ms. Hou is an 83-year-old female with PMH COPD, CKD IV, hypothyroidism, bipolar disorder, chronic pain, malnutrition, history of wide- complex tachycardia, LBBB, recurrent falls, history of orthostatic hypotension a nd others listed below presented to ER from [facility] for recurrent falls. Ortho spine with no surgical intervention. Ortho not yet rounding on patient, will follow up. Pain management with nucynta trial for pain management. Rest of plan as above I spent a total of 25 minutes coordinating, documenting, and providing care for this patient excluding time spent in the performance of separately billed services. All of the aforementioned completed outside of collaborating with the assigned advanced practitioner for a full treatment plan. I have reviewed the advanced practitioner's documentation, and I agree with, and take responsibility for the plan of care Subjective Seen and examined in follow up for frequent falls, fractures. No acute events overnight. Describing pain of both knees, pelvis. More comfortable at rest. Took oxycodone earlier but it made her feel dizzy. Denies chest pain, SOB, F/C, lightheadedness, N/V, abd pain, dysuria, diarrhea or constipation. Review of Systems Review of Systems: At least ten systems reviewed and negative except as noted in the HPI. Physical Exam Physical Exam: Gen: WD/WN, frail appearing, NAD, laying in bed, A&Ox3, +anxious HEENT: Normocephalic, atraumatic, conjunctivae moist, sclerae anicteric, mucous membranes moist Lung: Clear to Auscultation bilaterally, no wheezes/rales/rhonchi Heart: Regular rate, regular rhythm, no murmurs, rubs, or gallops Abdomen: Soft, NT, ND +BS x 4 Extremities: no edema Skin: Warm, no rash Results & Data Results & Data Vital Signs (Past 12 Hours) Vital Signs Temp Pulse Pulse Resp BP Pulse Ox O2 Del Method 02/08/24 15:30 37.4 C 76 18 125/67 95 Room Air 02/08/24 15:07 81 02/08/24 11:32 37.7 C H 92 H 20 116/73 90 Room Air 02/08/24 07:48 36.9 C 77 20 116/76 94 Room Air 02/08/24 07:24 72 Laboratory Results Short CBC 02/08/24 Range/Units 08:08 WBC 7.87 (4.8-10.8) K/ul Hgb 9.3 L (12.0-16.0) g/dl Hct 31.2 L (37.0-47.0) % Plt Count 404 H (130-400) K/uL BMP 02/08/24 08:08 Sodium 140 Potassium 4.1 Chloride 111 H Carbon Dioxide 21 BUN 26 H Creatinine 1.52 H Glucose 92 Calcium 9.2 Diagnostic Findings Abdomen/Pelvis CT 02/06/24 13:[address] WITH IV CONTRAST HISTORY: Acute onset abdominal pain status post fall multiple falls w/ abd pain TECHNIQUE: Multiaxial CT images of the abdomen and pelvis were performed following the IV administration of 91 cc of Optiray, A dose lowering technique was utilized adhering to the principles of ALARA. COMPARISON STUDY: 01/06/2024 FINDINGS: Mild interval healing of the subacute mildly displaced posterior right ninth rib fracture with unchanged alignment. Additional healing subacute anterior right eighth rib fracture. Trace right pleural fluid is present. No pneumothorax within the visualized lower chest. T12 compression deformity is chronic. Subacute to chronic right sacral alar fracture appears unchanged. No acute proximal femoral fracture is present. Healed intertrochanteric fracture of the left femur status post internal fixation is present. There is an acute comminuted left acetabular fracture which involves the anterior and superior allen with fracture extension into the left superior pubic ramus. Acute nondisplaced left inferior pubic ramus fractures with healed right pelvic ring fractures. Extensive plaque within the abdominal aorta with high-grade stenosis of the common iliac arteries and areas of chronic appearing internal iliac occlusion.. Unenhanced images of the liver, spleen, adrenal glands, and pancreas demonstrate no acute abnormality. Numerous tiny right renal cysts. There is mild right-sided perinephric stranding with mild pelvocaliectasis and urothelial thickening. Mild urinary bladder wall thickening. Heterogeneous uterus. Mild intrahepatic and extrahepatic biliary ductal dilation. Unremarkable gallbladder. There is no abnormality within the left nephrectomy bed. No evidence for a bowel obstruction. Colonic diverticulosis without evidence for acute diverticulitis. No lymphadenopathy is present. Soft tissue prominence of the left adductor musculature. IMPRESSION: 1. Acute and comminuted nondisplaced left acetabular fractures with additional fractures of the left superior and inferior pubic rami. 2. Healing subacute right-sided rib fractures with unchanged alignment compared to 01/06/2024 3. Right-sided urothelial thickening with pelvocaliectasis suggestive of an ascending infection. Correlate with urinalysis. 4. Unchanged appearance of the subacute to chronic nondisplaced right sacral alar fracture. 5. Additional findings as above. ACT 112: Negative or not required by law. The above report was generated using voice recognition software. It may contain grammatical, syntax or spelling errors. Electronically signed by: Gilmar Royal M.D. 02/06/2024 6:[address] 02/06/24 13:53 CT cervical spine wo con CLINICAL HISTORY: 83 years-old Female with call. Acute head and neck injury status post fall COMPARISON: CT cervical spine 08/26/2020, chest CT 07/02/2022 TECHNIQUE: Multiple axial CT images of the cervical spine were obtained without contrast. A dose lowering technique was utilized adhering to the principles of ALARA. FINDINGS: No acute cervical spine fracture or subluxation identified. No prevertebral edema. There are advanced multilevel degenerative changes. There is 4 mm anterolisthesis of C3 on C4 which is felt to be degenerative. There is spinal stenosis most pronounced the C4-5 level. There is foraminal narrowing most pronounced at the C4-5 and C5-C6 levels. No pneumothorax. Partially imaged left subclavian pacer leads. Mild acute versus subacute T1 compression deformity without retropulsion, which was not present on the 07/02/2022 exam. IMPRESSION: 1. No acute cervical spine fracture or subluxation. 2. Mild acute versus subacute T1 compression deformity without retropulsion. ACT 112: Negative or not required by law. The above report was generated using voice recognition software. It may contain grammatical, syntax or spelling errors. Electronically signed by: Gilmar Royal M.D. 02/06/2024 6:25 PM Chest X-Ray 02/06/24 13:53 XR chest 1V portable HISTORY: 83 years-old Female fall acute chest trauma status post fall COMPARISON: 01/06/2024 TECHNIQUE: AP view the chest FINDINGS: Cardiac silhouette is enlarged. Unchanged positioning of the left subclavian Quycrv-w-Asrj catheter. Moderate hemidiaphragmatic elevation. Chronic interstitial coarsening. No pneumothorax, pleural effusion or airspace consolidation. Bones appear grossly intact. IMPRESSION: Unchanged appearance of the chest without acute process identified. ACT 112: Negative or not required by law. The above report was generated using voice recognition software. It may contain grammatical, syntax or spelling errors. Electronically signed by: Gilmar Royal M.D. 02/06/2024 2:[address] 02/06/24 13:53 CT head/brain wo con CLINICAL HISTORY: 83 years-old Female with fall. Acute head and neck injury status post fall TECHNIQUE: Multiple axial CT images of the head were obtained without contrast. A dose lowering technique was utilized adhering to the principles of ALARA. CT DOSE: 1689.18 mGy.cm COMPARISON: CT cervical spine same day, head CT 01/06/2024 FINDINGS: No acute intracranial hemorrhage, midline shift, intracranial mass, hydrocephalus, territorial ischemia or abnormal extra-axial collection. Motion degraded exam. Involutional changes with chronic microvascular ischemic disease. The calvarium is intact. Minimal mucosal thickening of the paranasal sinuses. M astoid air cells are clear. IMPRESSION: No acute intracranial abnormality or calvarial fracture. ACT 112: Negative or not required by law. The above report was generated using voice recognition software. It may contain grammatical, syntax or spelling errors. Electronically signed by: Gilmar Royal M.D. 02/06/2024 6:18 PM Hip/Pelvis X-Ray 02/06/24 13:53 XR hip LT 2V w pelvis CLINICAL HISTORY: Left hip pain following fall. COMPARISON: CT of the abdomen and pelvis January 06, 2024. Pelvis and left hip radiographs July 18, 2019. FINDINGS: Bladder stimulator, pelvic surgical clips and left femoral internal fixation hardware are incidentally noted. Sacroiliac joints and symphysis pubis are intact. There is no acute fracture within the pelvis or hips. There is a healed intertrochanteric fracture of the left femur. IMPRESSION: No acute fractures within the pelvis or hips. ACT 112: Negative or not required by law. Electronically signed by: Lamont Alcazar M.D. 02/06/2024 2:54 PM Knee X-Ray 02/06/24 13:53 XR knee LT 1 or 2V routine CLINICAL HISTORY: l knee TECHNIQUE: 2 views of the left knee were obtained. Comparison: Comparison is made to knee radiographs 07/18/2019 FINDINGS: There is no evidence of an acute fracture. Patient is status post total knee arthroplasty. No perihardware lucency or hardware fracture is seen. No joint effusion is seen. No soft tissue abnormality is seen. IMPRESSION: No acute abnormality. Hardware is satisfactory in appearance. ACT 112: Negative or not required by law. Electronically signed by: Ranjan Garcia M.D. 02/06/2024 2:[address] 02/06/24 18:58 Exam(s): CT L SPINE EXAM: CT Lumbar Spine Without Intravenous Contrast CLINICAL HISTORY: Reason for exam: fall. TECHNIQUE: Axial computed tomography images of the lumbar spine without intravenous contrast. CTDI is 25.89 mGy and DLP is 1266.44 mGy-cm. Automated exposure control was utilized for the study. A dose lowering technique was utilized adhering to the principles of ALARA. COMPARISON: No relevant prior studies available. FINDINGS: Vertebrae: The bones are markedly osteopenic. Marked levocurvature of the lumbar spine. Advanced multilevel degenerative disc disease and facet arthropathy. No acute fracture identified. Chronic appearing superior endplate height loss at T12. Severe spinal canal stenosis at L4- 5. Scattered foraminal stenosis of variable degrees. Soft tissues: Unremarkable. IMPRESSION: 1. No acute appearing fracture. 2. Severe spinal canal stenosis at L4-5. Electronically signed by: Bruce Chowdary MD 02/06/24 20:[address] 02/06/24 18:58 Exam(s): CT T SPINE EXAM: CT Thoracic Spine Without Intravenous Contrast CLINICAL HISTORY: Reason for exam: fall. TECHNIQUE: Axial computed tomography images of the thoracic spine without intravenous contrast. CTDI is 25.89 mGy and DLP is 1266.44 mGy-cm. Automated exposure control was utilized for the study. A dose lowering technique was utilized adhering to the principles of ALARA. COMPARISON: Chest CT 07/02/2022 FINDINGS: Vertebrae: New or worsening compression deformities at T1, T5, T7, T9, and T10. Multiple compression deformities. Some of these were present on the prior. The chronic appearing compression deformities are at T3, T4, T8, and T12. Soft tissues: Unremarkable. IMPRESSION: New or worsening compression deformities at T1, T5, T7, T9, and T10. These may be any combination of acute, subacute, or chronic. There is no significant canal stenosis. Electronically signed by: Bruce Chowdary MD 02/06/24 20:17 PM ECG Additional Comments: EKG reviewed: NSR, LBBB, ST changes in anterior leads but poor quality due to movement (11) COPD (chronic obstructive pulmonary disease) COPD type: unspecified COPD Qualified Code(s): J44.9 - Chronic obstructive pulmonary disease, unspecified (13) Hypothyroidism Hypothyroidism type: unspecified Qualified Code(s): E03.9 - Hypothyroidism, unspecified
--- NOTE | 2024-02-08 19:06 | Orthopedic Consultation ---
Date of Consultation February 08, 2024 Assessment & Plan (1) Acetabular fracture: She has a nondisplaced left acetabular fracture. This should not require surgical fixation. I would recommend toe-touch weightbearing on her left leg. She reports a lot of problems with her balance and is concerned about her ability to remain toe-touch weightbearing with a walker. Would recommend evaluation for assistance and stability with a walker by physical therapy. If she is unable to remain toe-touch weightbearing on the left leg with a walker, she may require wheelchair. She may follow-up with Dr. Ly as an outpatient about 2 to 3 weeks after discharge. Orthopedics will sign off. History of Present Illness Reason for Consultation: Left acetabular fracture Attending Physician: Shreya Sher MD History of Present Illness Ms. Hou is an 83-year-old female who reports a history of numerous falls lately due to dizziness. She states that she falls frequently with this dizziness despite using a walker. She reports that she fell onto her left side about a week ago. She reports pain in the groin area. She reports she fractured this same left hip about 3 years ago. Allergies Allergy/AdvReac Type Severity Reaction Status Date / Time Penicillins Allergy Unknown RASH Verified 02/06/24 17:29 albuterol [From ProAir HFA] AdvReac Intermediate Dizziness Verified 02/06/24 17:29 Home Medications Medication Instructions Recorded Confirmed Type lamotrigine 25 mg tablet (Lamictal) 25 mg PO HS 08/12/20 02/06/24 History acetaminophen 500 mg tablet 500 mg PO Q6H PRN Pain 08/26/20 02/06/24 History (Tylenol Extra Strength) levothyroxine 88 mcg tablet 88 mcg PO DAILYBB 12/09/20 02/06/24 History (Synthroid) aripiprazole 2 mg tablet (Abilify) 2 mg PO QAM ##0 07/02/22 02/06/24 History lorazepam 0.5 mg tablet 0.5 mg PO BID Anxiety 07/02/22 02/06/24 History melatonin 3 mg tablet 3 mg PO HS ##0 07/02/22 02/06/24 History lamotrigine 100 mg tablet 50 mg PO QAM 01/06/24 02/06/24 History albuterol sulfate 90 mcg/actuation 1 puff inhalation QID PRN 01/14/24 02/06/24 Rx aerosol inhaler (Ventolin HFA) shortness of breath or wheezing #6.7 grams cyanocobalamin (vitamin B-12) 500 1,000 mcg (2 x 500 mcg) PO QAM #30 01/14/24 02/06/24 Rx mcg tablet tabs metoprolol succinate 50 mg 50 mg PO QAM #30 tabs 01/14/24 02/06/24 Rx tablet,extended release 24 hr oxycodone-acetaminophen 5 mg-325 1 tab PO Q12H PRN pain #14 tabs 01/14/24 02/06/24 Rx mg tablet (Percocet) gabapentin 100 mg capsule 100 mg PO HS 02/06/24 02/06/24 History lidocaine 4 % topical patch 0.5 patch topical DAILY 02/06/24 02/06/24 History mirtazapine 7.5 mg tablet 7.5 mg PO HS 02/06/24 02/06/24 History neomycin 1.75 mg-polymyxin 10,000 1 drp ophthalmic (eye) BID 02/06/24 02/06/24 History unit-gramicidin 0.025mg/mL eye drops Patient History Medical History UTI (urinary tract infection) Generalized pain Intractable pain Hypothyroidism Bipolar disorder Neuropathy CKD (chronic kidney disease), stage IV S/p nephrectomy Tobacco abuse COPD (chronic obstructive pulmonary disease) Osteoarthritis Malignant tumor of urinary bladder Malignant tumor of kidney COPD (chronic obstructive pulmonary disease) Dizziness Altered mental status History of kidney cancer Bladder cancer CKD (chronic kidney disease), stage IV Tobacco abuse Urothelial cancer (~2010) Surgical History History of partial hysterectomy H/O dilation and curettage Hx of total knee arthroplasty S/p nephrectomy "Left" H/O: hysterectomy Family History Aunt Heart disease [place] in her 50s Mother Breast cancer Father Prostate cancer Social History Smoking Status: Former smoker Tobacco Type: Cigarettes Cigarettes Per Day: 5; Second Hand Exposure: No; Do You Dip or Chew Tobacco: No; Hx Alcohol Use: No Hx Substance Use: No Preferred Language: Estonian Communication Ability: Effective Visual Impairment: No Limitations Hearing Ability: Normal Metal Work Duct Installer Required: No Beliefs That Will Affect Care: None marital status: / Current Living Situation: Personal Care Facility Current Living Situation Comment: [facility] How many Children do You have: 1 Feels Safe at Home: Yes Safety Concerns: Feels Safe At This Time Assistive Devices: Walker Physical Exam Physical Exam: Examination of the left hip reveals no gross deformity. Motor and sensory function is intact distally. She does endorse groin pain with motion of the femur. Results & Data Vital Signs (Past 12 Hours) Vital Signs Temp Pulse Pulse Resp BP Pulse Ox O2 Del Method 02/08/24 15:30 37.4 C 76 18 125/67 95 Room Air 02/08/24 15:07 81 02/08/24 11:32 37.7 C H 92 H 20 116/73 90 Room Air 02/08/24 07:48 36.9 C 77 20 116/76 94 Room Air 02/08/24 07:24 72 Diagnostic Findings X-rays of the left hip show a previous short cephalomedullary nail, presumably from previous intertrochanteric femur fracture which looks solidly healed. Numerous intrapelvic clips and a stimulator wire are noted. No obvious fractures visible within the left acetabulum on plain x-ray. CT scan through the pelvis shows a nondisplaced left acetabular fracture. There is evidence of old healed pubic rami fractures. (1) Acetabular fracture Encounter type: initial encounter Fracture alignment: nondisplaced Fracture type: closed Laterality: left Sublocation of acetabulum: unspecified portion of acetabulum Qualified Code(s): S32.402A - Unspecified fracture of left acetabulum, initial encounter for closed fracture
[2024-02-09 07:20] LABS: Hematocrit (blood only) 31.8 % (37.0-47.0); Hemoglobin 10.1 g/dl (12.0-16.0); Mean Corpuscular Hgb Conc 31.8 g/dL (32.0-36.0); Mean Corpuscular Volume 91.4 fL (80.0-100.0); Mean Platelet Volume 9.1 fL (9.4-12.4); Platelet Count 440 K/uL (130-400); RDW Standard Deviation 46.9 fL (36.4-46.3); Red Blood Count 3.48 M/uL (4.20-5.40); White Blood Count 9.38 K/ul (4.8-10.8)
[2024-02-09 07:45] LABS: BUN Creatinine Ratio 18.8 (10-20); Calcium 9.4 mg/dl (8.6-10.3); Creatinine Clr Calc Pharmacy 22.1 ml/min; Est GFR (African American) 40.6 ml/min; Magnesium 1.7 mg/dl (1.7-2.4); Phosphorus 3.4 mg/dl (2.5-4.9); Potassium 4.1 mmol/L (3.5-5.1)
--- NOTE | 2024-02-09 08:01 | Electrocardiogram Report ---
Test Reason : Blood Pressure : / mmHG Vent. Rate : 088 BPM Atrial Rate : 088 BPM P-R Int : 190 ms QRS Dur : 122 ms QT Int : 386 ms P-R-T Axes : 066 043 050 degrees QTc Int : 467 ms Normal sinus rhythm Left bundle branch block Abnormal ECG When compared with ECG of 07-JAN-2024 12:22, T wave inversion no longer evident in Inferior leads T wave inversion no longer evident in Anterolateral leads Confirmed by Ottoniel Mcginnis ([id number]) on 02/09/2024 8:01:11 AM Referred By: REFERRED SELF Confirmed By:Ottoniel Mcginnis
[2024-02-09] MEDS: TAPENTADOL HCL 50 MG TAB PO PRN (08:23)
--- NOTE | 2024-02-09 13:15 | Hospitalist Progress Note ---
Date of Service February 09, 2024 Assessment & Plan (1) Acetabular fracture: (2) Pubic bone fracture: (3) Closed compression fracture of thoracic vertebra: (4) Osteoporosis: (5) UTI (urinary tract infection): (6) Diarrhea: (7) Anemia: (8) CKD (chronic kidney disease), stage IV: (9) Wide-complex tachycardia: (10) Orthostatic hypotension: (11) COPD (chronic obstructive pulmonary disease): (12) Chronic pain syndrome: (13) Hypothyroidism: (14) Bipolar disorder: Plan: (15) Malnutrition: Plan: Patient is 83-year-old female with PMH COPD, CKD IV, hypothyroidism, bipolar disorder, chronic pain, malnutrition, history of wide-complex tachycardia, LBBB, recurrent falls, history of orthostatic hypotension and others listed below presented to ER from [facility] for recurrent falls. CT head: No acute intracranial abnormality or calvarial fracture. CT C-spine: No acute cervical spine fracture or subluxation. Mild acute versus subacute T1 compression deformity without retropulsion. CT thoracic spine: New or worsening compression deformities at T1, T5, T7, T9, and T10. These may be any combination of acute, subacute, or chronic. There is no significant canal stenosis CT lumbar spine: No acute appearing fracture. Severe spinal canal stenosis at L4-5. CT abdomen pelvis: Acute and comminuted nondisplaced left acetabular fractures with additional fractures of the left superior and inferior pubic rami. Healing subacute right-sided rib fractures with unchanged alignment compared to 01/06/2024. Right-sided urothelial thickening with pelvocaliectasis suggestive of an ascending infection. Correlate with urinalysis. Unchanged appearance of the subacute to chronic nondisplaced right sacral alar fracture. X-ray left knee: No acute abnormality. Hardware is satisfactory in appearance. Hip/pelvis x-ray:No acute fractures within the pelvis or hips. #Acute on chronic anemia, likely traumatic, stable Hgb: 9.6. --> 8.6 (s/p 1 L bolus in Ed) -> 9.3 Hgb was 11.2 on 01/13/2024 Potentially related to trauma 2/2 fracture Patient denies noted melena, hematochezia, hematuria B12 1486, folate 19, iron 20 ferritin 163 Continue home B12 FOBT Trend CBC, transfuse <7 #Diarrhea Stool pcr negative Reports improvement 3 episodes of loose diarrhea in ER #Acute complicated cystitis Potentially contributing to presentation, CT imaging with urothelial thickening consistent with pelvocaliectasis c/w ascending infection UA: + Nitrate, 2+ leuk esterase,> 30 WBC, 2+ bacteria Patient denies urinary symptoms In ER given Rocephin, 1L NSS Klebsiella, resistant to CTX, day 4 IV abx Continue Rocephin for now #Acute on chronic compression fractures T1, 5,7,8,10 #Severe spinal canal stenosis L4-L5 #Acute comminuted left acetabular fractures #Acute left superior/inferior pubic rami #Chronic Nondisplaced Right Sacral Ala Fracture #Healing right sided rib fractures #Recurrent Falls #Chronic Pain/chronic neuropathy New fractures since discharge on 01/13 2/ multiple falls Pain control with tylenol scheduled, lidocaine patches, and oxycodone/morphine as needed Orthopedics consulted: -Spine: weight bearing as tolerated, plan for follow up with Dr. Mckinnon OP in 2-4 weeks for follow up -weight bearing as tolerated, may require wheelchair Pain mgmt consulted: 1. Orthotics referral has been placed for a [employer] back brace (RN notified that patient is refusing to wear) 2. Physical therapy order has been placed 3. Discontinued oxycodone and MS IR prescriptions due to patient reporting drowsiness and unsteadiness 4. Continue gabapentin 100 mg daily and lidocaine patches 5. Started on Nucynta IR 50 mg every 4 hours if needed for pain relief 6. Nothing to offer interventionally #Hypertension #history of orthostatic hypotension #History of Torsades/ Wide complex tachycardia #LBBB (last admission 12/2023) --Normal TSH --Initial troponin negative --ECHO 12/2023: Left ventricle is normal in size. Moderate concentric LVH. Basal septum is thickened and angulated consistent with sigmoid septum. Septal motion is consistent with conduction abnormality. Wall motion is otherwise normal. EF 60 to 60%. Grade 1 diastolic dysfunction. Aortic valve sclerosis moderate, without significant aortic valve stenosis. Focal calcification of the left coronary cusp. Mild mitral annular calcification. Moderate mitral regurgitation. Mitral regurgitation jet is eccentrically directed. Trace tricuspid regurgitation -Continue Metoprolol XL 50mg qam Monitor and replace electrolytes as needed Conservative management Avoid QTc prolonging medications EKG with remonstrated LBBB, ? of ST changes in anterior lead but poor quality. If develops symptoms, will repeat. Tele reviewed; no changes #CKDIII -GFR in 30s usually, Cr 1.45, stable Encourage po Repeat BMP in am #Bilateral shoulder pain #Chronic arthralgias Likely secondary to arthritis Pain mgmt as above #Severe protein calorie malnutrition -BMI 18, thin, cachectic -Encourage PO intake, continue mirtazapine #Hypothyroidism -Continue home Synthroid #COPD with emphysema -Stable, albuterol prn #Bipolar d/o -Continue lamictal; continue aripiprazole DVT Prophylaxis SCDs for now DNR/DNI as per discussion with pt Follows with Dr Quezada for routine care Admission and Anticipated Discharge Date Admission Date: February 06, 2024 Subjective No acute events overnight Reports exquisite pain--discussed trying to manage pain and limitations given reported adverse effects Denies chest pain, palpitations, nausea, vomiting or other acute concerns Physical Exam Constitutional: WD/WN, vitals as above Respiratory: normal respiratory effort, lungs clear to auscultation Cardiovascular: RRR, no murmur, no edema Results & Data Results & Data Vital Signs (Past 12 Hours) Vital Signs Temp Pulse Pulse Resp BP BP Pulse Ox 02/09/24 11:31 36.6 C 86 20 136/82 95 02/09/24 07:58 36.9 C 88 20 139/75 94 02/09/24 06:09 97 H 02/09/24 03:32 37.0 C 77 20 145/76 H 93 O2 Del Method 02/09/24 11:31 Room Air 02/09/24 07:58 Room Air 02/09/24 06:09 02/09/24 03:32 Room Air Laboratory Results Short CBC 02/09/24 Range/Units 07:01 WBC 9.38 (4.8-10.8) K/ul Hgb 10.1 L (12.0-16.0) g/dl Hct 31.8 L (37.0-47.0) % Plt Count 440 H (130-400) K/uL BMP 02/09/24 07:01 Sodium 138 Potassium 4.1 Chloride 108 H Carbon Dioxide 20 L BUN 26 H Creatinine 1.38 H Glucose 132 H Calcium 9.4 Medications Administered Home Medications Medication Instructions Recorded Confirmed Last Taken lamotrigine 25 mg tablet (Lamictal) 25 mg PO HS 08/12/20 02/06/24 02/05/24 acetaminophen 500 mg tablet 500 mg PO Q6H PRN Pain 08/26/20 02/06/24 02/19/22 (Tylenol Extra Strength) levothyroxine 88 mcg tablet 88 mcg PO DAILYBB 12/09/20 02/06/24 02/06/24 (Synthroid) aripiprazole 2 mg tablet (Abilify) 2 mg PO QAM ##0 07/02/22 02/06/24 02/06/24 lorazepam 0.5 mg tablet 0.5 mg PO BID Anxiety 07/02/22 02/06/24 02/06/24 08:00 melatonin 3 mg tablet 3 mg PO HS ##0 07/02/22 02/06/24 02/05/24 lamotrigine 100 mg tablet 50 mg PO QAM 01/06/24 02/06/24 02/06/24 albuterol sulfate 90 mcg/actuation 1 puff inhalation QID PRN 01/14/24 02/06/24 Unknown aerosol inhaler (Ventolin HFA) shortness of breath or wheezing #6.7 grams cyanocobalamin (vitamin B-12) 500 1,000 mcg (2 x 500 mcg) PO QAM #30 01/14/24 02/06/24 02/06/24 mcg tablet tabs metoprolol succinate 50 mg 50 mg PO QAM #30 tabs 01/14/24 02/06/24 02/06/24 tablet,extended release 24 hr oxycodone-acetaminophen 5 mg-325 1 tab PO Q12H PRN pain #14 tabs 01/14/24 02/06/24 Unknown mg tablet (Percocet) gabapentin 100 mg capsule 100 mg PO HS 02/06/24 02/06/24 02/05/24 lidocaine 4 % topical patch 0.5 patch topical DAILY 02/06/24 02/06/24 02/06/24 mirtazapine 7.5 mg tablet 7.5 mg PO HS 02/06/24 02/06/24 02/05/24 neomycin 1.75 mg-polymyxin 10,000 1 drp ophthalmic (eye) BID 02/06/24 02/06/24 02/06/24 08:00 unit-gramicidin 0.025mg/mL eye drops Active Medications Generic Name Dose Route Start Last Admin Trade Name Freq PRN Reason Stop Dose Admin Acetaminophen 1,000 mg 02/06/24 22:00 02/09/24 12:43 Acetaminophen 500 Mg Tab PO 03/07/24 21:59 1,000 mg Q8H EDUARDO Administration Aripiprazole 2 mg 02/07/24 09:00 02/09/24 08:25 Aripiprazole 1 Mg/Ml Oral Soln 150 Ml Btl PO 03/08/24 08:59 2 mg QAM EDUARDO Administration Cyanocobalamin 1,000 mcg 02/07/24 09:00 02/09/24 08:25 Cyanocobalamin (B-12) 500 Mcg Tablet PO 03/08/24 08:59 1,000 mcg QAM EDUARDO Administration Diclofenac Sodium 2 gm 02/07/24 16:30 02/09/24 12:44 Diclofenac Sod 1% Gel 100 Gm Tube EXT 03/08/24 16:29 Not Given Q6H EDUARDO Protocol Gabapentin 100 mg 02/06/24 21:58 02/08/24 21:02 Gabapentin 100 Mg Cap PO 03/07/24 21:57 Not Given HS EDUARDO Ceftriaxone Sodium 2,000 mg/ 50 mls @ 100 mls/hr 02/07/24 17:00 02/08/24 17:03 Dextrose IV 02/12/24 16:59 Infused Q24H EDUARDO Infusion Protocol Lactobacillus Acidophilus 1,250 mg 02/07/24 09:00 02/09/24 08:23 Advanced Probiotic 625 Mg Capsule PO 03/08/24 08:59 1,250 mg DAILY EDUARDO Administration Lamotrigine 50 mg 02/07/24 09:00 02/09/24 08:24 Lamotrigine 25 Mg Tab PO 03/08/24 08:59 50 mg QAM EDUARDO Administration Protocol Lamotrigine 25 mg 02/06/24 21:58 02/08/24 21:02 Lamotrigine 25 Mg Tab PO 03/07/24 21:57 25 mg HS EDUARDO Administration Protocol Levothyroxine Sodium 88 mcg 02/07/24 06:30 02/09/24 05:50 Levothyroxine Sodium 88 Mcg Tablet PO 03/08/24 06:29 88 mcg DAILYBB EDUARDO Administration Lidocaine 1 patch 02/07/24 09:00 02/09/24 08:25 Lidocaine 5% 1 Patch TD 03/08/24 08:59 Not Given DAILY EDUARDO Melatonin 3 mg 02/06/24 21:58 02/08/24 21:05 Melatonin 3 Mg Tab PO 03/07/24 21:57 3 mg HS EDUARDO Administration Metoprolol Succinate 50 mg 02/07/24 09:00 02/09/24 08:24 Metoprolol Succ 50mg Ext Rel Tab PO 03/08/24 08:59 50 mg QAM EDUARDO Administration Mirtazapine 7.5 mg 02/06/24 21:58 02/08/24 21:00 Mirtazapine Tab 15 Mg Tab PO 03/07/24 21:57 7.5 mg HS EDUARDO Administration Miscellaneous 1 each 02/07/24 21:00 02/08/24 21:01 Remove Lidoderm Patch N/A 03/08/24 20:59 Not Given HS EDUARDO Neomycin/Polymyxin/Gramicidin 1 drops 02/06/24 21:58 02/09/24 08:27 Neomycin/Polymyxin/Gramicidin 10 Ml Btl OP 03/07/24 21:57 1 drops BID EDUARDO Administration Tapentadol 50 mg 02/08/24 13:53 02/09/24 08:23 Tapentadol Hcl 50 Mg Tab PO 02/22/24 13:52 50 mg Q4H PRN Administration Pain (11) COPD (chronic obstructive pulmonary disease) COPD type: unspecified COPD Qualified Code(s): J44.9 - Chronic obstructive pulmonary disease, unspecified (13) Hypothyroidism Hypothyroidism type: unspecified Qualified Code(s): E03.9 - Hypothyroidism, unspecified
[2024-02-10 06:31] LABS: Hematocrit (blood only) 32.8 % (37.0-47.0); Hemoglobin 10.4 g/dl (12.0-16.0); Mean Corpuscular Hemoglobin 29.1 pg (25.0-34.0); Mean Corpuscular Hgb Conc 31.7 g/dL (32.0-36.0); Mean Corpuscular Volume 91.6 fL (80.0-100.0); Mean Platelet Volume 9.2 fL (9.4-12.4); Platelet Count 469 K/uL (130-400); RDW Coefficient of Variation 13.9 % (11.5-14.5); RDW Standard Deviation 46.8 fL (36.4-46.3); Red Blood Count 3.58 M/uL (4.20-5.40); White Blood Count 8.49 K/ul (4.8-10.8)
[2024-02-10 06:56] LABS: BUN Creatinine Ratio 21.9 (10-20); Calcium 9.5 mg/dl (8.6-10.3); Creatinine Clr Calc Pharmacy 19.7 ml/min; Est GFR (African American) 36.4 ml/min; Est GFR (Non-African American) 31.4 ml/min; Phosphorus 3.8 mg/dl (2.5-4.9); Potassium 4.8 mmol/L (3.5-5.1)
[2024-02-10] MEDS: POLYETHYLENE (MIRALAX) 17 GM PACK PO SCH (11:14)
[2024-02-10] MEDS: DOCUSATE SODIUM/SENNA 50/8.6MG TAB PO SCH (11:14)
--- NOTE | 2024-02-10 12:37 | Hospitalist Progress Note ---
Date of Service February 10, 2024 Assessment & Plan (1) Acetabular fracture: (2) Pubic bone fracture: (3) Closed compression fracture of thoracic vertebra: (4) Osteoporosis: (5) UTI (urinary tract infection): (6) Diarrhea: (7) Anemia: (8) CKD (chronic kidney disease), stage IV: (9) Wide-complex tachycardia: (10) Orthostatic hypotension: (11) COPD (chronic obstructive pulmonary disease): (12) Chronic pain syndrome: (13) Hypothyroidism: (14) Bipolar disorder: Plan: (15) Malnutrition: Plan: Patient is 83-year-old female with PMH COPD, CKD IV, hypothyroidism, bipolar disorder, chronic pain, malnutrition, history of wide-complex tachycardia, LBBB, recurrent falls, history of orthostatic hypotension and others listed below presented to ER from [facility] for recurrent falls. CT head: No acute intracranial abnormality or calvarial fracture. CT C-spine: No acute cervical spine fracture or subluxation. Mild acute versus subacute T1 compression deformity without retropulsion. CT thoracic spine: New or worsening compression deformities at T1, T5, T7, T9, and T10. These may be any combination of acute, subacute, or chronic. There is no significant canal stenosis CT lumbar spine: No acute appearing fracture. Severe spinal canal stenosis at L4-5. CT abdomen pelvis: Acute and comminuted nondisplaced left acetabular fractures with additional fractures of the left superior and inferior pubic rami. Healing subacute right-sided rib fractures with unchanged alignment compared to 01/06/2024. Right-sided urothelial thickening with pelvocaliectasis suggestive of an ascending infection. Correlate with urinalysis. Unchanged appearance of the subacute to chronic nondisplaced right sacral alar fracture. X-ray left knee: No acute abnormality. Hardware is satisfactory in appearance. Hip/pelvis x-ray:No acute fractures within the pelvis or hips. Will need dispo to rehab. Patient doing muc better clinically #Chronic Vertigo -Reports persistent chronic vertigo, would like to trial meclizine prn #Acute on chronic anemia, likely traumatic, stable Hgb: 9.6. --> 8.6 (s/p 1 L bolus in Ed) -> 9.3 Hgb was 11.2 on 01/13/2024 Potentially related to trauma 2/2 fracture Patient denies noted melena, hematochezia, hematuria B12 1486, folate 19, iron 20 ferritin 163 Continue home B12 FOBT Trend CBC, transfuse <7 #Diarrhea Stool pcr negative Reports improvement 3 episodes of loose diarrhea in ER #Acute complicated cystitis Potentially contributing to presentation, CT imaging with urothelial thickening consistent with pelvocaliectasis c/w ascending infection UA: + Nitrate, 2+ leuk esterase,> 30 WBC, 2+ bacteria Patient denies urinary symptoms In ER given Rocephin, 1L NSS Klebsiella, resistant to CTX, day 5 IV abx EOT 02/11 Continue Rocephin for now #Acute on chronic compression fractures T1, 5,7,8,10 #Severe spinal canal stenosis L4-L5 #Acute comminuted left acetabular fractures #Acute left superior/inferior pubic rami #Chronic Nondisplaced Right Sacral Ala Fracture #Healing right sided rib fractures #Recurrent Falls #Chronic Pain/chronic neuropathy New fractures since discharge on 01/13 2/2 multiple falls Pain control with tylenol scheduled, lidocaine patches, and oxycodone/morphine as needed Orthopedics consulted: -Spine: weight bearing as tolerated, plan for follow up with Dr. Mckinnon OP in 2-4 weeks for follow up -weight bearing as tolerated, may require wheelchair Pain mgmt consulted: 1. Orthotics referral has been placed for a [employer] back brace (RN notified that patient is refusing to wear) 2. Physical therapy order has been placed 3. Discontinued oxycodone and MS IR prescriptions due to patient reporting drowsiness and unsteadiness 4. Continue gabapentin 100 mg daily and lidocaine patches 5. Started on Nucynta IR 50 mg every 4 hours if needed for pain relief 6. Nothing to offer interventionally #Hypertension #history of orthostatic hypotension #History of Torsades/ Wide complex tachycardia #LBBB (last admission 12/2023) --Normal TSH --Initial troponin negative --ECHO 12/2023: Left ventricle is normal in size. Moderate concentric LVH. Basal septum is thickened and angulated consistent with sigmoid septum. Septal motion is consistent with conduction abnormality. Wall motion is otherwise normal. EF 60 to 60%. Grade 1 diastolic dysfunction. Aortic valve sclerosis moderate, without significant aortic valve stenosis. Focal calcification of the left coronary cusp. Mild mitral annular calcification. Moderate mitral regurgitation. Mitral regurgitation jet is eccentrically directed. Trace tricuspid regurgitation -Continue Metoprolol XL 50mg qam Monitor and replace electrolytes as needed Conservative management Avoid QTc prolonging medications EKG with remonstrated LBBB, ? of ST changes in anterior lead but poor quality. If develops symptoms, will repeat. Tele reviewed; no changes #CKDIII -GFR in 30s usually, Cr 1.45, stable Encourage po Repeat BMP in am #Bilateral shoulder pain #Chronic arthralgias Likely secondary to arthritis Pain mgmt as above #Severe protein calorie malnutrition -BMI 18, thin, cachectic -Encourage PO intake, continue mirtazapine #Hypothyroidism -Continue home Synthroid #COPD with emphysema -Stable, albuterol prn #Bipolar d/o -Continue lamictal; continue aripiprazole DVT Prophylaxis SCDs for now DNR/DNI as per discussion with pt Follows with Dr Quezada for routine care Admission and Anticipated Discharge Date Admission Date: February 06, 2024 Subjective No acute events overnight Reports chronic vertigo and would like to trial as needed medications to perhaps aid in symptoms Denies nausea and vomiting Physical Exam Constitutional: WD/WN, vitals as above Respiratory: normal respiratory effort, lungs clear to auscultation Cardiovascular: RRR, no murmur, no edema Gastrointestinal (Abdomen): normal bowel sounds, soft, nontender, no hepatosplenomegaly Neurologic: PERRL, EOMI, accommodation nl, no face palsy, no dysarthria Results & Data Results & Data Vital Signs (Past 12 Hours) Vital Signs Temp Pulse Pulse Resp BP BP Pulse Ox 02/10/24 11:47 36.6 C 78 18 126/79 95 02/10/24 08:55 36.8 C 117 H 18 145/95 H 93 02/10/24 06:03 75 02/10/24 03:36 36.8 C 77 18 123/68 91 O2 Del Method 02/10/24 11:47 Room Air 02/10/24 08:55 Room Air 02/10/24 06:03 02/10/24 03:36 Room Air Laboratory Results Short CBC 02/10/24 Range/Units 06:10 WBC 8.49 (4.8-10.8) K/ul Hgb 10.4 L (12.0-16.0) g/dl Hct 32.8 L (37.0-47.0) % Plt Count 469 H (130-400) K/uL BMP 02/10/24 06:10 Sodium 139 Potassium 4.8 Chloride 110 H Carbon Dioxide 21 BUN 33 H Creatinine 1.51 H Glucose 101 H Calcium 9.5 Medications Administered Home Medications Medication Instructions Recorded Confirmed Last Taken lamotrigine 25 mg tablet (Lamictal) 25 mg PO HS 08/12/20 02/06/24 02/05/24 acetaminophen 500 mg tablet 500 mg PO Q6H PRN Pain 08/26/20 02/06/24 02/19/22 (Tylenol Extra Strength) levothyroxine 88 mcg tablet 88 mcg PO DAILYBB 12/09/20 02/06/24 02/06/24 (Synthroid) aripiprazole 2 mg tablet (Abilify) 2 mg PO QAM ##0 07/02/22 02/06/24 02/06/24 lorazepam 0.5 mg tablet 0.5 mg PO BID Anxiety 07/02/22 02/06/24 02/06/24 08:00 melatonin 3 mg tablet 3 mg PO HS ##0 07/02/22 02/06/24 02/05/24 lamotrigine 100 mg tablet 50 mg PO QAM 01/06/24 02/06/24 02/06/24 albuterol sulfate 90 mcg/actuation 1 puff inhalation QID PRN 01/14/24 02/06/24 Unknown aerosol inhaler (Ventolin HFA) shortness of breath or wheezing #6.7 grams cyanocobalamin (vitamin B-12) 500 1,000 mcg (2 x 500 mcg) PO QAM #30 01/14/24 02/06/24 02/06/24 mcg tablet tabs metoprolol succinate 50 mg 50 mg PO QAM #30 tabs 01/14/24 02/06/24 02/06/24 tablet,extended release 24 hr oxycodone-acetaminophen 5 mg-325 1 tab PO Q12H PRN pain #14 tabs 01/14/24 02/06/24 Unknown mg tablet (Percocet) gabapentin 100 mg capsule 100 mg PO HS 02/06/24 02/06/24 02/05/24 lidocaine 4 % topical patch 0.5 patch topical DAILY 02/06/24 02/06/24 02/06/24 mirtazapine 7.5 mg tablet 7.5 mg PO HS 02/06/24 02/06/2402/04/24 neomycin 1.75 mg-polymyxin 10,000 1 drp ophthalmic (eye) BID 02/06/24 02/06/24 02/06/24 08:00 unit-gramicidin 0.025mg/mL eye drops Active Medications Generic Name Dose Route Start Last Admin Trade Name Joseq PRN Reason Stop Dose Admin Acetaminophen 1,000 mg 02/06/24 22:00 02/10/24 06:09 Acetaminophen 500 Mg Tab PO 03/07/24 21:59 1,000 mg Q8H EDUARDO Administration Aripiprazole 2 mg 02/07/24 09:00 02/10/24 08:38 Aripiprazole 1 Mg/Ml Oral Soln 150 Ml Btl PO 03/08/24 08:59 2 mg QAM EDUARDO Administration Cyanocobalamin 1,000 mcg 02/07/24 09:00 02/10/24 08:39 Cyanocobalamin (B-12) 500 Mcg Tablet PO 03/08/24 08:59 1,000 mcg QAM EDUARDO Administration Diclofenac Sodium 2 gm 02/07/24 16:30 02/10/24 08:45 Diclofenac Sod 1% Gel 100 Gm Tube EXT 03/08/24 16:29 Not Given Q6H EDUARDO Protocol Gabapentin 100 mg 02/06/24 21:58 02/09/24 20:24 Gabapentin 100 Mg Cap PO 03/07/24 21:57 100 mg HS EDUARDO Administration Ceftriaxone Sodium 2,000 mg/ 50 mls @ 100 mls/hr 02/07/24 17:00 02/09/24 17:34 Dextrose IV 02/12/24 16:59 Infused Q24H EDUARDO Infusion Protocol Lactobacillus Acidophilus 1,250 mg 02/07/24 09:00 02/10/24 08:39 Advanced Probiotic 625 Mg Capsule PO 03/08/24 08:59 1,250 mg DAILY EDUARDO Administration Lamotrigine 50 mg 02/07/24 09:00 02/10/24 08:39 Lamotrigine 25 Mg Tab PO 03/08/24 08:59 50 mg QAM EDUARDO Administration Protocol Lamotrigine 25 mg 02/06/24 21:58 02/09/24 20:23 Lamotrigine 25 Mg Tab PO 03/07/24 21:57 25 mg HS EDUARDO Administration Protocol Levothyroxine Sodium 88 mcg 02/07/24 06:30 02/10/24 06:09 Levothyroxine Sodium 88 Mcg Tablet PO 03/08/24 06:29 88 mcg DAILYBB EDUARDO Administration Lidocaine 1 patch 02/07/24 09:00 02/10/24 08:37 Lidocaine 5% 1 Patch TD 03/08/24 08:59 Not Given DAILY EDUARDO Melatonin 3 mg 02/06/24 21:58 02/09/24 20:24 Melatonin 3 Mg Tab PO 03/07/24 21:57 3 mg HS EDUARDO Administration Metoprolol Succinate 50 mg 02/07/24 09:00 02/10/24 08:38 Metoprolol Succ 50mg Ext Rel Tab PO 03/08/24 08:59 50 mg QAM EDUARDO Administration Mirtazapine 7.5 mg 02/06/24 21:58 02/09/24 20:24 Mirtazapine Tab 15 Mg Tab PO 03/07/24 21:57 7.5 mg HS EDUARDO Administration Miscellaneous 1 each 02/07/24 21:00 02/09/24 20:25 Remove Lidoderm Patch N/A 03/08/24 20:59 1 each HS EDUARDO Administration Neomycin/Polymyxin/Gramicidin 1 drops 02/06/24 21:58 02/10/24 08:38 Neomycin/Polymyxin/Gramicidin 10 Ml Btl OP 03/07/24 21:57 1 drops BID EDUARDO Administration Polyethylene Glycol 17 gm 02/10/24 10:45 02/10/24 11:14 Polyethylene (Miralax) 17 Gm Pack PO 03/11/24 10:44 17 gm DAILY EDUARDO Administration Senna/Docusate Sodium 1 tab 02/10/24 10:45 02/10/24 11:14 Docusate Sodium/Senna 50/8.6mg Tab PO 03/11/24 10:44 1 tab QAM EDUARDO Administration Tapentadol 50 mg 02/08/24 13:53 02/09/24 22:27 Tapentadol Hcl 50 Mg Tab PO 02/22/24 13:52 50 mg Q4H PRN Administration Pain (11) COPD (chronic obstructive pulmonary disease) COPD type: unspecified COPD Qualified Code(s): J44.9 - Chronic obstructive pulmonary disease, unspecified (13) Hypothyroidism Hypothyroidism type: unspecified Qualified Code(s): E03.9 - Hypothyroidism, unspecified
[2024-02-10] MEDS: MECLIZINE 12.5 MG TAB PO PRN (15:18)
--- NOTE | 2024-02-11 10:39 | Hospitalist Progress Note ---
Date of Service February 11, 2024 Assessment & Plan (1) Acetabular fracture: (2) Pubic bone fracture: (3) Closed compression fracture of thoracic vertebra: (4) Osteoporosis: (5) UTI (urinary tract infection): (6) Diarrhea: (7) Anemia: (8) CKD (chronic kidney disease), stage IV: (9) Wide-complex tachycardia: (10) Orthostatic hypotension: (11) COPD (chronic obstructive pulmonary disease): (12) Chronic pain syndrome: (13) Hypothyroidism: (14) Bipolar disorder: Plan: (15) Malnutrition: Plan: Patient is 83-year-old female with PMH COPD, CKD IV, hypothyroidism, bipolar disorder, chronic pain, malnutrition, history of wide-complex tachycardia, LBBB, recurrent falls, history of orthostatic hypotension and others listed below presented to ER from [facility] for recurrent falls. CT head: No acute intracranial abnormality or calvarial fracture. CT C-spine: No acute cervical spine fracture or subluxation. Mild acute versus subacute T1 compression deformity without retropulsion. CT thoracic spine: New or worsening compression deformities at T1, T5, T7, T9, and T10. These may be any combination of acute, subacute, or chronic. There is no significant canal stenosis CT lumbar spine: No acute appearing fracture. Severe spinal canal stenosis at L4-5. CT abdomen pelvis: Acute and comminuted nondisplaced left acetabular fractures with additional fractures of the left superior and inferior pubic rami. Healing subacute right-sided rib fractures with unchanged alignment compared to 01/06/2024. Right-sided urothelial thickening with pelvocaliectasis suggestive of an ascending infection. Correlate with urinalysis. Unchanged appearance of the subacute to chronic nondisplaced right sacral alar fracture. X-ray left knee: No acute abnormality. Hardware is satisfactory in appearance. Hip/pelvis x-ray:No acute fractures within the pelvis or hips. Will need dispo to rehab. Patient doing much better clinically. Vertigo improved with meclizine, will continue. Pain more controlled. SNF for rehab planned #Chronic Vertigo -Reports persistent chronic vertigo, would like to trial meclizine prn #Acute on chronic anemia, likely traumatic, stable Hgb: 9.6. --> 8.6 (s/p 1 L bolus in Ed) -> 9.3 Hgb was 11.2 on 01/13/2024 Potentially related to trauma 2/2 fracture Patient denies noted melena, hematochezia, hematuria B12 1486, folate 19, iron 20 ferritin 163 Continue home B12 FOBT Trend CBC, transfuse <7 #Diarrhea Stool pcr negative Reports improvement 3 episodes of loose diarrhea in ER #Acute complicated cystitis Potentially contributing to presentation, CT imaging with urothelial thickening consistent with pelvocaliectasis c/w ascending infection UA: + Nitrate, 2+ leuk esterase,> 30 WBC, 2+ bacteria Patient denies urinary symptoms In ER given Rocephin, 1L NSS Klebsiella, resistant to CTX, day 6 IV abx EOT 02/11 Continue Rocephin for now #Acute on chronic compression fractures T1, 5,7,8,10 #Severe spinal canal stenosis L4-L5 #Acute comminuted left acetabular fractures #Acute left superior/inferior pubic rami #Chronic Nondisplaced Right Sacral Ala Fracture #Healing right sided rib fractures #Recurrent Falls #Chronic Pain/chronic neuropathy New fractures since discharge on 01/13 2/2 multiple falls Pain control with tylenol scheduled, lidocaine patches, and oxycodone/morphine as needed Orthopedics consulted: -Spine: weight bearing as tolerated, plan for follow up with Dr. Mckinnon OP in 2-4 weeks for follow up -weight bearing as tolerated, may require wheelchair Pain mgmt consulted: 1. Orthotics referral has been placed for a TSLO back brace (RN notified that patient is refusing to wear) 2. Physical therapy order has been placed 3. Discontinued oxycodone and MS IR prescriptions due to patient reporting drowsiness and unsteadiness 4. Continue gabapentin 100 mg daily and lidocaine patches 5. Started on Nucynta IR 50 mg every 4 hours if needed for pain relief 6. Nothing to offer interventionally #Hypertension #history of orthostatic hypotension #History of Torsades/ Wide complex tachycardia #LBBB (last admission 12/2023) --Normal TSH --Initial troponin negative --ECHO 12/2023: Left ventricle is normal in size. Moderate concentric LVH. B smith septum is thickened and angulated consistent with sigmoid septum. Septal motion is consistent with conduction abnormality. Wall motion is otherwise normal. EF 60 to 60%. Grade 1 diastolic dysfunction. Aortic valve sclerosis moderate, without significant aortic valve stenosis. Focal calcification of the left coronary cusp. Mild mitral annular calcification. Moderate mitral regurgitation. Mitral regurgitation jet is eccentrically directed. Trace tricuspid regurgitation -Continue Metoprolol XL 50mg qam Monitor and replace electrolytes as needed Conservative management Avoid QTc prolonging medications EKG with remonstrated LBBB, ? of ST changes in anterior lead but poor quality. If develops symptoms, will repeat. Tele reviewed; no changes #CKDIII -GFR in 30s usually, Cr 1.45, stable Encourage po #Bilateral shoulder pain #Chronic arthralgias Likely secondary to arthritis Pain mgmt as above #Severe protein calorie malnutrition -BMI 18, thin, cachectic -Encourage PO intake, continue mirtazapine #Hypothyroidism -Continue home Synthroid #COPD with emphysema -Stable, albuterol prn #Bipolar d/o -Continue lamictal; continue aripiprazole DVT Prophylaxis SCDs for now DNR/DNI as per discussion with pt Follows with Dr Quezada for routine care Plan for dispo to SNF for rehab Admission and Anticipated Discharge Date Admission Date: February 06, 2024 Subjective No acute events overnight States pain is better controlled, but still present Sitting in bedside chair, comfortable Reports some resolve with meclizine but notes that she is leery of medications and wishes to keep smallest dose Physical Exam Constitutional: WD/WN, vitals as above Respiratory: normal respiratory effort, lungs clear to auscultation Cardiovascular: RRR, no murmur, no edema Gastrointestinal (Abdomen): normal bowel sounds, soft, nontender, no hepatosplenomegaly Results & Data Results & Data Vital Signs (Past 12 Hours) Vital Signs Temp Pulse Pulse Resp BP Pulse Ox O2 Del Method 02/11/24 07:32 36.3 C L 79 14 133/82 92 Room Air 02/11/24 06:00 69 02/11/24 01:56 36.5 C 71 16 91/48 L 95 Room Air 02/11/24 00:14 76 Medications Administered Home Medications Medication Instructions Recorded Confirmed Last Taken lamotrigine 25 mg tablet (Lamictal) 25 mg PO HS 08/12/20 02/06/24 02/05/24 acetaminophen 500 mg tablet 500 mg PO Q6H PRN Pain 08/26/20 02/06/24 02/19/22 (Tylenol Extra Strength) levothyroxine 88 mcg tablet 88 mcg PO DAILYBB 12/09/20 02/06/24 02/06/24 (Synthroid) aripiprazole 2 mg tablet (Abilify) 2 mg PO QAM ##0 07/02/22 02/06/24 02/06/24 lorazepam 0.5 mg tablet 0.5 mg PO BID Anxiety 07/02/22 02/06/24 02/06/24 08:00 melatonin 3 mg tablet 3 mg PO HS ##0 07/02/22 02/06/24 02/05/24 lamotrigine 100 mg tablet 50 mg PO QAM 01/06/24 02/06/24 02/06/24 albuterol sulfate 90 mcg/actuation 1 puff inhalation QID PRN 01/14/24 02/06/24 Unknown aerosol inhaler (Ventolin HFA) shortness of breath or wheezing #6.7 grams cyanocobalamin (vitamin B-12) 500 1,000 mcg (2 x 500 mcg) PO QAM #30 01/14/24 02/06/24 02/06/24 mcg tablet tabs metoprolol succinate 50 mg 50 mg PO QAM #30 tabs 01/14/24 02/06/24 02/06/24 tablet,extended release 24 hr oxycodone-acetaminophen 5 mg-325 1 tab PO Q12H PRN pain #14 tabs 01/14/24 02/06/24 Unknown mg tablet (Percocet) gabapentin 100 mg capsule 100 mg PO HS 02/06/24 02/06/24 02/05/24 lidocaine 4 % topical patch 0.5 patch topical DAILY 02/06/24 02/06/24 02/06/24 mirtazapine 7.5 mg tablet 7.5 mg PO HS 02/06/24 02/06/24 02/05/24 neomycin 1.75 mg-polymyxin 10,000 1 drp ophthalmic (eye) BID 02/06/24 02/06/24 02/06/24 08:00 unit-gramicidin 0.025mg/mL eye drops Active Medications Generic Name Dose Route Start Last Admin Trade Name Freq PRN Reason Stop Dose Admin Acetaminophen 1,000 mg 02/06/24 22:00 02/11/24 05:01 Acetaminophen 500 Mg Tab PO 03/07/24 21:59 1,000 mg Q8H EDUARDO Administration Aripiprazole 2 mg 02/07/24 09:00 02/11/24 08:46 Aripiprazole 1 Mg/Ml Oral Soln 150 Ml Btl PO 03/08/24 08:59 2 mg QAM EDUARDO Administration Cyanocobalamin 1,000 mcg 02/07/24 09:00 02/11/24 08:46 Cyanocobalamin (B-12) 500 Mcg Tablet PO 03/08/24 08:59 1,000 mcg QAM EDUARDO Administration Diclofenac Sodium 2 gm 02/07/24 16:30 02/11/24 04:58 Diclofenac Sod 1% Gel 100 Gm Tube EXT 03/08/24 16:29 2 gm Q6H EDUARDO Administration Protocol Gabapentin 100 mg 02/06/24 21:58 02/10/24 21:15 Gabapentin 100 Mg Cap PO 03/07/24 21:57 100 mg HS EDUARDO Administration Ceftriaxone Sodium 2,000 mg/ 50 mls @ 100 mls/hr 02/07/24 17:00 02/10/24 17:05 Dextrose IV 02/12/24 16:59 Infused Q24H EDUARDO Infusion Protocol Lactobacillus Acidophilus 1,250 mg 02/07/24 09:00 02/11/24 08:46 Advanced Probiotic 625 Mg Capsule PO 03/08/24 08:59 1,250 mg DAILY EDUARDO Administration Lamotrigine 50 mg 02/07/24 09:00 02/11/24 08:45 Lamotrigine 25 Mg Tab PO 03/08/24 08:59 50 mg QAM EDUARDO Administration Protocol Lamotrigine 25 mg 02/06/24 21:58 02/10/24 21:15 Lamotrigine 25 Mg Tab PO 03/07/24 21:57 25 mg HS EDUARDO Administration Protocol Levothyroxine Sodium 88 mcg 02/07/24 06:30 02/11/24 05:57 Levothyroxine Sodium 88 Mcg Tablet PO 03/08/24 06:29 88 mcg DAILYBB EDUARDO Administration Lidocaine 1 patch 02/07/24 09:00 02/11/24 08:47 Lidocaine 5% 1 Patch TD 03/08/24 08:59 Not Given DAILY EDUARDO Meclizine HCl 12.5 mg 02/10/24 12:49 02/10/24 15:18 Meclizine 12.5 Mg Tab PO 03/11/24 12:48 12.5 mg Q4H PRN Administration Vertigo Melatonin 3 mg 02/06/24 21:58 02/10/24 21:14 Melatonin 3 Mg Tab PO 03/07/24 21:57 3 mg HS EDUARDO Administration Metoprolol Succinate 50 mg 02/07/24 09:00 02/11/24 08:46 Metoprolol Succ 50mg Ext Rel Tab PO 03/08/24 08:59 50 mg QAM EDUARDO Administration Mirtazapine 7.5 mg 02/06/24 21:58 02/10/24 21:15 Mirtazapine Tab 15 Mg Tab PO 03/07/24 21:57 7.5 mg HS EDUARDO Administration Miscellaneous 1 each 02/07/24 21:00 02/10/24 21:16 Remove Lidoderm Patch N/A 03/08/24 20:59 1 each HS EDUARDO Administration Neomycin/Polymyxin/Gramicidin 1 drops 02/06/24 21:58 02/11/24 08:48 Neomycin/Polymyxin/Gramicidin 10 Ml Btl OP 03/07/24 21:57 1 drops BID EDUARDO Administration Polyethylene Glycol 17 gm 02/10/24 10:45 02/11/24 08:47 Polyethylene (Miralax) 17 Gm Pack PO 03/11/24 10:44 17 gm DAILY EDUARDO Administration Senna/Docusate Sodium 1 tab 02/10/24 10:45 02/11/24 08:46 Docusate Sodium/Senna 50/8.6mg Tab PO 03/11/24 10:44 1 tab QAM EDUARDO Administration Tapentadol 50 mg 02/08/24 13:53 02/10/24 21:14 Tapentadol Hcl 50 Mg Tab PO 02/22/24 13:52 50 mg Q4H PRN Administration Pain (11) COPD (chronic obstructive pulmonary disease) COPD type: unspecified COPD Qualified Code(s): J44.9 - Chronic obstructive pulmonary disease, unspecified (13) Hypothyroidism Hypothyroidism type: unspecified Qualified Code(s): E03.9 - Hypothyroidism, unspecified
[2024-02-11] MEDS: IRON SUCROSE 200 MG in 0.9 % SODIUM CHLORIDE 100 ML IV SCH (12:16)
--- NOTE | 2024-02-12 13:26 | Hospitalist Progress Note ---
Date of Service February 12, 2024 Assessment & Plan (1) Acetabular fracture: (2) Pubic bone fracture: (3) Closed compression fracture of thoracic vertebra: (4) Osteoporosis: (5) UTI (urinary tract infection): (6) Diarrhea: (7) Anemia: (8) CKD (chronic kidney disease), stage IV: (9) Wide-complex tachycardia: (10) Orthostatic hypotension: (11) COPD (chronic obstructive pulmonary disease): (12) Chronic pain syndrome: (13) Hypothyroidism: (14) Bipolar disorder: Plan: (15) Malnutrition: Plan: Patient is 83-year-old female with PMH COPD, CKD IV, hypothyroidism, bipolar disorder, chronic pain, malnutrition, history of wide-complex tachycardia, LBBB, recurrent falls, history of orthostatic hypotension and others listed below presented to ER from [facility] for recurrent falls. CT head: No acute intracranial abnormality or calvarial fracture. CT C-spine: No acute cervical spine fracture or subluxation. Mild acute versus subacute T1 compression deformity without retropulsion. CT thoracic spine: New or worsening compression deformities at T1, T5, T7, T9, and T10. These may be any combination of acute, subacute, or chronic. There is no significant canal stenosis CT lumbar spine: No acute appearing fracture. Severe spinal canal stenosis at L4-5. CT abdomen pelvis: Acute and comminuted nondisplaced left acetabular fractures with additional fractures of the left superior and inferior pubic rami. Healing subacute right-sided rib fractures with unchanged alignment compared to 01/06/2024. Right-sided urothelial thickening with pelvocaliectasis suggestive of an ascending infection. Correlate with urinalysis. Unchanged appearance of the subacute to chronic nondisplaced right sacral alar fracture. X-ray left knee: No acute abnormality. Hardware is satisfactory in appearance. Hip/pelvis x-ray:No acute fractures within the pelvis or hips. Will need dispo to rehab. Patient doing much better clinically. Vertigo improved with meclizine, will continue. Pain more controlled. SNF for rehab planned #Chronic Vertigo -Reports persistent chronic vertigo, continue meclizine 12.5mg prn #Acute on chronic anemia, likely traumatic, stable #Iron deficiency anemia Hgb: 9.6. --> 8.6 (s/p 1 L bolus in Ed) -> 9.3 Hgb was 11.2 on 01/13/2024 Potentially related to trauma 2/2 fracture Patient denies noted melena, hematochezia, hematuria B12 1486, folate 19, iron 20 ferritin 163 Continue home B12 FOBT negative Trend CBC, transfuse <7 #Diarrhea Stool pcr negative Reports improvement 3 episodes of loose diarrhea in ER #Acute complicated cystitis *completed abx Potentially contributing to presentation, CT imaging with urothelial thickening consistent with pelvocaliectasis c/w ascending infection UA: + Nitrate, 2+ leuk esterase,> 30 WBC, 2+ bacteria Patient denies urinary symptoms In ER given Rocephin, 1L NSS Klebsiella, resistant to CTX, day 6 IV abx EOT 02/11 #Acute on chronic compression fractures T1, 5,7,8,10 #Severe spinal canal stenosis L4-L5 #Acute comminuted left acetabular fractures #Acute left superior/inferior pubic rami #Chronic Nondisplaced Right Sacral Ala Fracture #Healing right sided rib fractures #Recurrent Falls #Chronic Pain/chronic neuropathy New fractures since discharge on 01/13 2/2 multiple falls Pain control with tylenol scheduled, lidocaine patches, and oxycodone/morphine as needed Orthopedics consulted: -Spine: weight bearing as tolerated, plan for follow up with Dr. Mckinnon OP in 2-4 weeks for follow up -weight bearing as tolerated, may require wheelchair Pain mgmt consulted: 1. Orthotics referral has been placed for a TSLO back brace (RN notified that patient is refusing to wear) 2. Physical therapy order has been placed 3. Discontinued oxycodone and MS IR prescriptions due to patient reporting drowsiness and unsteadiness 4. Continue gabapentin 100 mg daily and lidocaine patches 5. Started on Nucynta IR 50 mg every 4 hours if needed for pain relief 6. Nothing to offer interventionally #Hypertension #history of orthostatic hypotension #History of Torsades/ Wide complex tachycardia #LBBB (last admission 12/2023) --Normal TSH --Initial troponin negative --ECHO 12/2023: Left ventricle is normal in size. Moderate concentric LVH. Basal septum is thickened and angulated consistent with sigmoid septum. Septal motion is consistent with conduction abnormality. Wall motion is otherwise normal. EF 60 to 60%. Grade 1 diastolic dysfunction. Aortic valve sclerosis moderate, without significant aortic valve stenosis. Focal calcification of the left coronary cusp. Mild mitral annular calcification. Moderate mitral regurgitation. Mitral regurgitation jet is eccentrically directed. Trace tricuspid regurgitation -Continue Metoprolol XL 50mg qam Monitor and replace electrolytes as needed Conservative management Avoid QTc prolonging medications EKG with remonstrated LBBB, ? of ST changes in anterior lead but poor quality. If develops symptoms, will repeat. Tele reviewed; no changes #CKDIII -GFR in 30s usually, Cr 1.45, stable Encourage po #Bilateral shoulder pain #Chronic arthralgias Likely secondary to arthritis Pain mgmt as above #Severe protein calorie malnutrition -BMI 18, thin, cachectic -Encourage PO intake, continue mirtazapine #Hypothyroidism -Continue home Synthroid #COPD with emphysema -Stable, albuterol prn #Bipolar d/o -Continue lamictal; continue aripiprazole DVT Prophylaxis SCDs for now DNR/DNI as per discussion with pt Follows with Dr Quezada for routine care Plan for dispo to SNF for rehab ([facility]) Admission and Anticipated Discharge Date Admission Date: February 06, 2024 Subjective No acute events overnight Physical Exam Constitutional: WD/WN, vitals as above Respiratory: normal respiratory effort, lungs clear to auscultation Cardiovascular: RRR, no murmur, no edema Results & Data Results & Data Vital Signs (Past 12 Hours) Vital Signs Temp Pulse Pulse Resp BP BP Pulse Ox 02/12/24 11:40 37.0 C 77 16 105/71 94 02/12/24 08:01 36.6 C 78 16 113/64 91 02/12/24 05:57 77 02/12/24 03:48 37.0 C 70 16 102/62 93 O2 Del Method 02/12/24 11:40 Room Air 02/12/24 08:01 Room Air 02/12/24 05:57 02/12/24 03:48 Room Air Medications Administered Home Medications Medication Instructions Recorded Confirmed Last Taken lamotrigine 25 mg tablet (Lamictal) 25 mg PO HS 08/12/20 02/06/24 02/05/24 acetaminophen 500 mg tablet 500 mg PO Q6H PRN Pain 08/26/20 02/06/24 02/19/22 (Tylenol Extra Strength) levothyroxine 88 mcg tablet 88 mcg PO DAILYBB 12/09/20 02/06/24 02/06/24 (Synthroid) aripiprazole 2 mg tablet (Abilify) 2 mg PO QAM ##0 07/02/22 02/06/24 02/06/24 lorazepam 0.5 mg tablet 0.5 mg PO BID Anxiety 07/02/22 02/06/24 02/06/24 08:00 melatonin 3 mg tablet 3 mg PO HS ##0 07/02/22 02/06/24 02/05/24 lamotrigine 100 mg tablet 50 mg PO QAM 01/06/24 02/06/24 02/06/24 albuterol sulfate 90 mcg/actuation 1 puff inhalation QID PRN 01/14/24 02/06/24 Unknown aerosol inhaler (Ventolin HFA) shortness of breath or wheezing #6.7 grams cyanocobalamin (vitamin B-12) 500 1,000 mcg (2 x 500 mcg) PO QAM #30 01/14/24 02/06/24 02/06/24 mcg tablet tabs metoprolol succinate 50 mg 50 mg PO QAM #30 tabs 01/14/24 02/06/24 02/06/24 tablet,extended release 24 hr oxycodone-acetaminophen 5 mg-325 1 tab PO Q12H PRN pain #14 tabs 01/14/24 02/06/24 Unknown mg tablet (Percocet) gabapentin 100 mg capsule 100 mg PO HS 02/06/24 02/06/24 02/05/24 lidocaine 4 % topical patch 0.5 patch topical DAILY 02/06/24 02/06/24 02/06/24 mirtazapine 7.5 mg tablet 7.5 mg PO HS 02/06/24 02/06/24 02/05/24 neomycin 1.75 mg-polymyxin 10,000 1 drp ophthalmic (eye) BID 02/06/24 02/06/24 02/06/24 08:00 unit-gramicidin 0.025mg/mL eye drops Active Medications Generic Name Dose Route Start Last Admin Trade Name Freq PRN Reason Stop Dose Admin Acetaminophen 1,000 mg 02/06/24 22:00 02/12/24 05:04 Acetaminophen 500 Mg Tab PO 03/07/24 21:59 1,000 mg Q8H EDUARDO Administration Aripiprazole 2 mg 02/07/24 09:00 02/12/24 07:56 Aripiprazole 1 Mg/Ml Oral Soln 150 Ml Btl PO 03/08/24 08:59 2 mg QAM EDUARDO Administration Cyanocobalamin 1,000 mcg 02/07/24 09:00 02/12/24 07:55 Cyanocobalamin (B-12) 500 Mcg Tablet PO 03/08/24 08:59 1,000 mcg QAM EDUARDO Administration Diclofenac Sodium 2 gm 02/07/24 16:30 02/12/24 10:14 Diclofenac Sod 1% Gel 100 Gm Tube EXT 03/08/24 16:29 Not Given Q6H EDUARDO Protocol Gabapentin 100 mg 02/06/24 21:58 02/11/24 20:57 Gabapentin 100 Mg Cap PO 03/07/24 21:57 100 mg HS EDUARDO Administration Lactobacillus Acidophilus 1,250 mg 02/07/24 09:00 02/12/24 07:56 Advanced Probiotic 625 Mg Capsule PO 03/08/24 08:59 1,250 mg DAILY EDUARDO Administration Lamotrigine 50 mg 02/07/24 09:00 02/12/24 07:55 Lamotrigine 25 Mg Tab PO 03/08/24 08:59 50 mg QAM EDUARDO Administration Protocol Lamotrigine 25 mg 02/06/24 21:58 02/11/24 20:57 Lamotrigine 25 Mg Tab PO 03/07/24 21:57 25 mg HS EDUARDO Administration Protocol Levothyroxine Sodium 88 mcg 02/07/24 06:30 02/12/24 05:05 Levothyroxine Sodium 88 Mcg Tablet PO 03/08/24 06:29 88 mcg DAILYBB EDUARDO Administration Lidocaine 1 patch 02/07/24 09:00 02/12/24 07:55 Lidocaine 5% 1 Patch TD 03/08/24 08:59 Not Given DAILY EDUARDO Meclizine HCl 12.5 mg 02/10/24 12:49 02/10/24 15:18 Meclizine 12.5 Mg Tab PO 03/11/24 12:48 12.5 mg Q4H PRN Administration Vertigo Melatonin 3 mg 02/06/24 21:58 02/11/24 20:56 Melatonin 3 Mg Tab PO 03/07/24 21:57 3 mg HS EDUARDO Administration Metoprolol Succinate 50 mg 02/07/24 09:00 02/12/24 07:56 Metoprolol Succ 50mg Ext Rel Tab PO 03/08/24 08:59 50 mg QAM EDUARDO Administration Mirtazapine 7.5 mg 02/06/24 21:58 02/11/24 20:57 Mirtazapine Tab 15 Mg Tab PO 03/07/24 21:57 7.5 mg HS EDUARDO Administration Miscellaneous 1 each 02/07/24 21:00 02/11/24 20:51 Remove Lidoderm Patch N/A 03/08/24 20:59 Not Given HS EDUARDO Neomycin/Polymyxin/Gramicidin 1 drops 02/06/24 21:58 02/12/24 07:57 Neomycin/Polymyxin/Gramicidin 10 Ml Btl OP 03/07/24 21:57 1 drops BID EDUARDO Administration Polyethylene Glycol 17 gm 02/10/24 10:45 02/12/24 07:57 Polyethylene (Miralax) 17 Gm Pack PO 03/11/24 10:44 Not Given DAILY EDUARDO Senna/Docusate Sodium 1 tab 02/10/24 10:45 02/12/24 07:55 Docusate Sodium/Senna 50/8.6mg Tab PO 03/11/24 10:44 1 tab QAM EDUARDO Administration Tapentadol 50 mg 02/08/24 13:53 02/12/24 08:03 Tapentadol Hcl 50 Mg Tab PO 02/22/24 13:52 50 mg Q4H PRN Administration Pain (11) COPD (chronic obstructive pulmonary disease) COPD type: unspecified COPD Qualified Code(s): J44.9 - Chronic obstructive pu lmonary disease, unspecified (13) Hypothyroidism Hypothyroidism type: unspecified Qualified Code(s): E03.9 - Hypothyroidism, unspecified
[2024-02-13 07:32] LABS: Hematocrit (blood only) 31.5 % (37.0-47.0); Hemoglobin 9.9 g/dl (12.0-16.0); Mean Corpuscular Hemoglobin 29.1 pg (25.0-34.0); Mean Corpuscular Hgb Conc 31.4 g/dL (32.0-36.0); Mean Corpuscular Volume 92.6 fL (80.0-100.0); Mean Platelet Volume 9.3 fL (9.4-12.4); Platelet Count 456 K/uL (130-400); RDW Coefficient of Variation 14.4 % (11.5-14.5); RDW Standard Deviation 48.2 fL (36.4-46.3)
--- NOTE | 2024-02-13 08:32 | Hospitalist Progress Note ---
Date of Service February 13, 2024 Assessment & Plan (1) Acetabular fracture: (2) Pubic bone fracture: (3) Closed compression fracture of thoracic vertebra: (4) Osteoporosis: (5) UTI (urinary tract infection): (6) Diarrhea: (7) Anemia: (8) CKD (chronic kidney disease), stage IV: (9) Wide-complex tachycardia: (10) Orthostatic hypotension: (11) COPD (chronic obstructive pulmonary disease): (12) Chronic pain syndrome: (13) Hypothyroidism: (14) Bipolar disorder: Plan: (15) Malnutrition: Plan: Patient is 83-year-old female with PMH COPD, CKD IV, hypothyroidism, bipolar disorder, chronic pain, malnutrition, history of wide-complex tachycardia, LBBB, recurrent falls, history of orthostatic hypotension and others listed below presented to ER from [facility] for recurrent falls. Per previous provider with addendum: CT head: No acute intracranial abnormality or calvarial fracture. CT C-spine: No acute cervical spine fracture or subluxation. Mild acute versus subacute T1 compression deformity without retropulsion. CT thoracic spine: New or worsening compression deformities at T1, T5, T7, T9, and T10. These may be any combination of acute, subacute, or chronic. There is no significant canal stenosis CT lumbar spine: No acute appearing fracture. Severe spinal canal stenosis at L4-5. CT abdomen pelvis: Acute and comminuted nondisplaced left acetabular fractures with additional fractures of the left superior and inferior pubic rami. Healing subacute right-sided rib fractures with unchanged alignment compared to 2023. Right-sided urothelial thickening with pelvocaliectasis suggestive of an ascending infection. Correlate with urinalysis. Unchanged appearance of the subacute to chronic nondisplaced right sacral alar fracture. X-ray left knee: No acute abnormality. Hardware is satisfactory in appearance. Hip/pelvis x-ray:No acute fractures within the pelvis or hips. Will need dispo to rehab. Patient doing much better clinically. Vertigo improved with meclizine, will continue. Pain more controlled. SNF for rehab planned Chronic Vertigo -Reports persistent chronic vertigo, continue meclizine 12.5mg prn Acute on chronic anemia, likely traumatic, stable Iron deficiency anemia Hgb: 9.6. --> 8.6 (s/p 1 L bolus in Ed) -> 9.3 Hgb was 11.2 on 01/13/2024 Potentially related to trauma 2/2 fracture Patient denies noted melena, hematochezia, hematuria B12 1486, folate 19, iron 20 ferritin 163 Continue home B12 FOBT negative Trend CBC, transfuse <7 Diarrhea Stool pcr negative Reports improvement 3 episodes of loose diarrhea in ER Acute complicated cystitis *completed abx Potentially contributing to presentation, CT imaging with urothelial thickening consistent with pelvocaliectasis c/w ascending infection UA: + Nitrate, 2+ leuk esterase,> 30 WBC, 2+ bacteria Patient denies urinary symptoms In ER given Rocephin, 1L NSS Klebsiella,sensitive to rocephin Completed treatment on 02/11 Acute on chronic compression fractures T1, 5,7,8,10 Severe spinal canal stenosis L4-L5 Acute comminuted left acetabular fractures Acute left superior/inferior pubic rami Chronic Nondisplaced Right Sacral Ala Fracture Healing right sided rib fractures Recurrent Falls Chronic Pain/chronic neuropathy New fractures since discharge on 01/13 2/2 multiple falls Pain control with tylenol scheduled, lidocaine patches, and oxycodone/morphine as needed Orthopedics consulted: -Spine: weight bearing as tolerated, plan for follow up with Dr. Mckinnon OP in 2-4 weeks for follow up -weight bearing as tolerated, may require wheelchair Pain mgmt consulted: 1. Orthotics referral has been placed for a TSLO back brace (RN notified that patient is refusing to wear) 2. Physical therapy order has been placed 3. Discontinued oxycodone and MS IR prescriptions due to patient reporting drowsiness and unsteadiness 4. Continue gabapentin 100 mg daily and lidocaine patches 5. Started on Nucynta IR 50 mg every 4 hours if needed for pain relief 6. Nothing to offer interventionally Hypertension history of orthostatic hypotension History of Torsades/ Wide complex tachycardia LBBB (last admission 12/2023) --Normal TSH --Initial troponin negative --ECHO 12/2023: Left ventricle is normal in size. Moderate concentric LVH. Basal septum is thickened and angulated consistent with sigmoid septum. Septal motion is consistent with conduction abnormality. Wall motion is otherwise normal. EF 60 to 60%. Grade 1 diastolic dysfunction. Aortic valve sclerosis moderate, without significant aortic valve stenosis. Focal calcification of the left coronary cusp. Mild mitral annular calcification. Moderate mitral regurgitation. Mitral regurgitation jet is eccentrically directed. Trace tricuspid regurgitation -Continue Metoprolol XL 50mg qam Monitor and replace electrolytes as needed Conservative management Avoid QTc prolonging medications EKG with remonstrated LBBB, ? of ST changes in anterior lead but poor quality. If develops symptoms, will repeat. Tele reviewed; no changes CKDIII -GFR in 30s usually, Cr 1.45, stable Encourage po Bilateral shoulder pain Chronic arthralgias Likely secondary to arthritis Pain mgmt as above Severe protein calorie malnutrition -BMI 18, thin, cachectic -Encourage PO intake, continue mirtazapine Hypothyroidism -Continue home Synthroid COPD with emphysema -Stable, albuterol prn Bipolar d/o -Continue lamictal; continue aripiprazole DVT Prophylaxis SCDs for now DNR/DNI as per discussion with pt Follows with Dr Quezada for routine care Plan for dispo to SNF for rehab ([facility] ) Admission and Anticipated Discharge Date Admission Date: February 06, 2024 Subjective Denies acute concerns but noting chronic pain. Sitting in chair near her bed. Review of Systems Review of Systems: All systems reviewed & are unremarkable except as noted in Subjective Physical Exam Physical Exam: General: Alert, oriented. No acute distress Skin: No noted rashes or bruises Psych: Appropriate mood and affect Neuro: No gross deficits HEENT: NC/AT, PERRLA, EOMI, oropharynx moist. Chest: Nontender to palpation. CV: RRR Resp: Breath sounds coarse bilaterally, no increased effort of breathing. Abdomen: Soft, nontender, nondistended. Extremities: No edema in lower extremities bilaterally. Results & Data Results & Data Vital Signs (Past 12 Hours) Vital Signs Temp Pulse Pulse Pulse Resp BP Pulse Ox 02/13/24 08:26 68 02/13/24 08:06 37 C 82 18 112/60 95 02/13/24 02:56 36.7 C 74 18 119/74 96 02/12/24 23:36 36.5 C 76 16 118/64 95 02/12/24 23:00 81 O2 Del Method 02/13/24 08:26 02/13/24 08:06 Room Air 02/13/24 02:56 Room Air 02/12/24 23:36 Room Air 02/12/24 23:00 (11) COPD (chronic obstructive pulmonary disease) COPD type: unspecified COPD Qualified Code(s): J44.9 - Chronic obstructive pulmonary disease, unspecified (13) Hypothyroidism Hypothyroidism type: unspecified Qualified Code(s): E03.9 - Hypothyroidism, unspecified
[2024-02-13 08:33] LABS: Calcium 9.2 mg/dl (8.6-10.3); Potassium 4.5 mmol/L (3.5-5.1)
[2024-02-13 08:39] LABS: BUN Creatinine Ratio 28.1 (10-20); Creatinine Clr Calc Pharmacy 20.7 ml/min; Est GFR (African American) 35.8 ml/min; Est GFR (Non-African American) 30.9 ml/min
[2024-02-14 06:31] LABS: Basophils # (auto) 0.04 K/uL (0.00-0.20); Basophils % (auto) 0.7 %; Eosinophils # (auto) 0.08 K/uL (0.00-0.50); Eosinophils % (auto) 1.4 %; Hemoglobin 9.6 g/dl (12.0-16.0); Immature Granulocytes # (auto) 0.06 K/uL (0.01-0.20); Lymphocytes # (auto) 1.39 K/uL (1.20-3.40); Lymphocytes % (auto) 23.8 %; Mean Corpuscular Hemoglobin 29.1 pg (25.0-34.0); Mean Corpuscular Volume 93.9 fL (80.0-100.0); Mean Platelet Volume 9.1 fL (9.4-12.4); Monocytes % (auto) 6.8 %; Neutrophils # (auto) 3.88 K/uL (1.40-6.50); Neutrophils % (auto) 66.3 %; Platelet Count 435 K/uL (130-400); RDW Coefficient of Variation 14.7 % (11.5-14.5); RDW Standard Deviation 49.4 fL (36.4-46.3); White Blood Count 5.85 K/ul (4.8-10.8)
[2024-02-14 06:50] LABS: BUN Creatinine Ratio 34.5 (10-20); Calcium 9.1 mg/dl (8.6-10.3); Creatinine Clr Calc Pharmacy 20.7 ml/min; Est GFR (African American) 38.2 ml/min; Magnesium 1.9 mg/dl (1.7-2.4); Phosphorus 3.2 mg/dl (2.5-4.9); Potassium 4.4 mmol/L (3.5-5.1)
--- NOTE | 2024-02-14 13:11 | Discharge Summary ---
Discharge Summary Date of Service February 14, 2024 Notes For Next Care Provider Please ensure follow up with Pain Management Medication Changes From Visit Nucynta 50mg q4h Meclizine 12.5mg q4h prn Miralax daily [place] daily Admission HPI Per Admitting Provider Patient is 83-year-old female with PMH COPD, CKD IV, hypothyroidism, bipolar disorder, chronic pain, malnutrition, history of wide-complex tachycardia, LBBB, recurrent falls, history of orthostatic hypotension and others listed below presented to ER from [facility] for recurrent falls. History obtained from patient and inpatient chart review. Patient admitted 01/06/2024-01/14/2024 for recurrent falls, nondisplaced right sacral fracture, right ninth rib fracture and chronic pain. Was discharged to [facility] rehab. Patient states was doing well at [facility] and was discharged back to [facility]. States since back has been having recurrent falls again. Reports has had 4 falls in the past several days. Last fall was yesterday. Denies falling today. Patient states two of her falls she hit her head. Denies LOC. Patient states is feeling dizzy with standing and ambulating. Patient reports chronic dizziness with standing. Per chart review patient with history of orthostatic hypotension. Patient reports chronic shoulder pain and chronic paresthesias bilateral feet. States still having some right buttock pain however this is much improved than last month. Patient states since recent falls she has been having left knee pain that is aggravated with any attempted range of motion. Also complains of left hip pain and neck and upper back pain. Today reports has had a couple episodes of diarrhea while in ER. Denies any abdominal pain. Denies dysuria, urinary frequency. Patient rep orts chronic shortness of breath and chest tightness with exertion that has been ongoing for years. Denies fever/chills, diaphoresis, N/V, hematochezia, melena, JOHNSON, syncope, vision changes, palpitations, cough, sore throat, rhinorrhea, abdominal pain, increased paresthesias, extremity edema, rashes. Admission Exam Per Admitting Provider General: no acute distress, chronically ill, thin elderly female Head: normocephalic, atraumatic Eyes: PERRL, EOM's intact, conjunctiva non-injected, anicteric ENT: normal inspection external ears, nose, mucous membranes moist Neck: supple, trachea midline,+tender to palpation distal posterior neck and upper thoracic region Lungs: clear, no respiratory distress, no wheezing/rhonchi/rales CV: RRR, no pretibial edema Abd: normal BS, soft, non-tender. No CVA tenderness to palpation Ext: no cyanosis, RLE without tenderness to palpation, pt able to actively flex and extend right hip and knee. LLE: +tenderness to palpation lateral and posterior hip, +tenderness to palpation anterior knee. Limited active ROM left hip and left knee secondary to discomfort. Distal pulses palpable, sensation to light touch intact Neuro: Alert and oriented to person, place and time, no focal deficits noted, normal affect Skin: warm, dry Principal Dx & Hospital Course #1 = Principal Diagnosis (1) Acetabular fracture: (2) Pubic bone fracture: (3) Closed compression fracture of thoracic vertebra: (4) Osteoporosis: (5) UTI (urinary tract infection): (6) Diarrhea: (7) Anemia: (8) CKD (chronic kidney disease), stage IV: (9) Wide-complex tachycardia: (10) Orthostatic hypotension: (11) COPD (chronic obstructive pulmonary disease): (12) Chronic pain syndrome: (13) Hypothyroidism: (14) Bipolar disorder: (15) Malnutrition: Plan Patient is 83-year-old female with PMH COPD, CKD IV, hypothyroidism, bipolar disorder, chronic pain, malnutrition, history of wide-complex tachycardia, LBBB, recurrent falls, history of orthostatic hypotension and others listed below presented to ER from [facility] for recurrent falls. Per previous provider with addendum: CT head: No acute intracranial abnormality or calvarial fracture. CT C-spine: No acute cervical spine fracture or subluxation. Mild acute versus subacute T1 compression deformity without retropulsion. CT thoracic spine: New or worsening compression deformities at T1, T5, T7, T9, and T10. These may be any combination of acute, subacute, or chronic. There is no significant canal stenosis CT lumbar spine: No acute appearing fracture. Severe spinal canal stenosis at L4-5. CT abdomen pelvis: Acute and comminuted nondisplaced left acetabular fractures with additional fractures of the left superior and inferior pubic rami. Healing subacute right-sided rib fractures with unchanged alignment compared to 01/06/2024. Right-sided urothelial thickening with pelvocaliectasis suggestive of an ascending infection. Correlate with urinalysis. Unchanged appearance of the subacute to chronic nondisplaced right sacral alar fracture. X-ray left knee: No acute abnormality. Hardware is satisfactory in appearance. Hip/pelvis x-ray:No acute fractures within the pelvis or hips. Patient doing much better clinically. Vertigo improved with meclizine, will continue. Pain more controlled. Currently on Nucynta, oxycodone discontinued due to dizziness. Rehab placement. Chronic Vertigo Reports persistent chronic vertigo Continue meclizine 12.5mg prn Acute on chronic anemia, likely traumatic, stable Iron deficiency anemia Hgb: 9.6. --> 8.6 (s/p 1 L bolus in Ed) -> 9.6 Hgb was 11.2 on 01/13/2024 Potentially related to trauma 2/2 fracture Patient denies noted melena, hematochezia, hematuria B12 1486, folate 19, iron 20 ferritin 163 Continue home B12 FOBT negative Trend CBC, transfuse <7 Ferrous sulfate every other day PCP follow up Diarrhea Stool pcr negative Reports improvement 3 episodes of loose diarrhea in ER Stable Acute complicated cystitis Potentially contributing to presentation, CT imaging with urothelial thickening consistent with pelvocaliectasis c/w ascending infection UA: + Nitrate, 2+ leuk esterase,> 30 WBC, 2+ bacteria Patient denies urinary symptoms In ER given Rocephin, 1L NSS Klebsiella, sensitive to rocephin Completed treatment on 02/11 Acute on chronic compression fractures T1, 5,7,8,10 Severe spinal canal stenosis L4-L5 Acute comminuted left acetabular fractures Acute left superior/inferior pubic rami Chronic Nondisplaced Right Sacral Ala Fracture Healing right sided rib fractures Recurrent Falls Chronic Pain/chronic neuropathy New fractures since discharge on 01/13 2/2 multiple falls Pain control with tylenol scheduled, lidocaine patches, and oxycodone/morphine as needed Orthopedics consulted: -Spine: weight bearing as tolerated, plan for follow up with Dr. Mckinnon OP in 2-4 weeks for follow up -weight bearing as tolerated, may require wheelchair Pain mgmt consulted: 1. Orthotics referral has been placed for a TSLO back brace (RN notified that patient is refusing to wear) 2. Physical therapy order has been placed 3. Discontinued oxycodone and MS IR prescriptions due to patient reporting drowsiness and unsteadiness 4. Continue gabapentin 100 mg daily and lidocaine patches 5. Started on Nucynta IR 50 mg every 4 hours if needed for pain relief 6. Nothing to offer interventionally PCP and Pain Management follow up Hypertension history of orthostatic hypotension History of Torsades/ Wide complex tachycardia LBBB (last admission 12/2023) Normal TSH Initial troponin negative ECHO 12/2023: Left ventricle is normal in size. Moderate concentric LVH. Basal septum is thickened and angulated consistent with sigmoid septum. Septal motion is consistent with conduction abnormality. Wall motion is otherwise normal. EF 60 to 60%. Grade 1 diastolic dysfunction. Aortic valve sclerosis moderate, without significant aortic valve stenosis. Focal calcification of the left coronary cusp. Mild mitral annular calcification. Moderate mitral regurgitation. Mitral regurgitation jet is eccentrically directed. Trace tricuspid regurgitation Continue Metoprolol XL 50mg qam Monitor and replace electrolytes as needed Conservative management Avoid QTc prolonging medications EKG with remonstrated LBBB, ? of ST changes in anterior lead but poor quality. If develops symptoms, will repeat. Tele reviewed; no changes PCP follow up CKDIII GFR in 30s usually, Cr 1.45, stable Encourage po PCP follow up Bilateral shoulder pain Chronic arthralgias Likely secondary to arthritis Pain mgmt as above Severe protein calorie malnutrition -BMI 18, thin, cachectic -Encourage PO intake, continue mirtazapine Hypothyroidism -Continue home Synthroid COPD with emphysema -Stable, albuterol prn Bipolar d/o -Continue lamictal; continue aripiprazole Discharge Exam General: Alert, oriented. No acute distress Skin: No noted rashes or bruises Psych: Appropriate mood and affect Neuro: No gross deficits while sitting in the chair HEENT: NC/AT Chest: Nontender to palpation. CV: RRR Resp: Breath sounds coarse bilaterally, no increased effort of breathing. Abdomen: Soft, nontender, nondistended. Extremities: No edema in lower extremities bilaterally. Updated Medication List Medication Instructions Recorded Confirmed Type lamotrigine 25 mg tablet (Lamictal) 25 mg PO HS 08/12/20 02/06/24 History acetaminophen 500 mg tablet 500 mg PO Q6H PRN Pain 08/26/20 02/06/24 History (Tylenol Extra Strength) levothyroxine 88 mcg tablet 88 mcg PO DAILYBB 12/09/20 02/06/24 History (Synthroid) aripiprazole 2 mg tablet (Abilify) 2 mg PO QAM ##0 07/02/22 02/06/24 History lorazepam 0.5 mg tablet 0.5 mg PO BID Anxiety 07/02/22 02/06/24 History melatonin 3 mg tablet 3 mg PO HS ##0 07/02/22 02/06/24 History lamotrigine 100 mg tablet 50 mg PO QAM 01/06/24 02/06/24 History albuterol sulfate 90 mcg/actuation 1 puff inhalation QID PRN 01/14/24 02/06/24 Rx aerosol inhaler (Ventolin HFA) shortness of breath or wheezing #6.7 grams cyanocobalamin (vitamin B-12) 500 1,000 mcg (2 x 500 mcg) PO QAM #30 01/14/24 02/06/24 Rx mcg tablet tabs metoprolol succinate 50 mg 50 mg PO QAM #30 tabs 01/14/24 02/06/24 Rx tablet,extended release 24 hr oxycodone-acetaminophen 5 mg-325 1 tab PO Q12H PRN pain #14 tabs 01/14/24 02/06/24 Rx mg tablet (Percocet) gabapentin 100 mg capsule 100 mg PO HS 02/06/24 02/06/24 History lidocaine 4 % topical patch 0.5 patch topical DAILY 02/06/24 02/06/24 History mirtazapine 7.5 mg tablet 7.5 mg PO HS 02/06/24 02/06/24 History neomycin 1.75 mg-polymyxin 10,000 1 drp ophthalmic (eye) BID 02/06/24 02/06/24 History unit-gramicidin 0.025mg/mL eye drops ferrous sulfate 325 mg (65 mg 325 mg PO Q OTHER DAY #30 tabs 02/14/24 Rx iron) tablet meclizine 12.5 mg tablet 12.5 mg PO Q4H PRN dizziness #30 02/14/24 Rx tabs polyethylene glycol 3350 17 gram 17 g PO DAILY #30 ea 02/14/24 Rx oral powder packet (Miralax) sennosides 8.6 mg-docusate sodium 1 tab PO QAM #30 tabs 02/14/24 Rx 50 mg tablet (Senokot-S) tapentadol 50 mg tablet (Nucynta) 50 mg PO Q4H PRN pain #30 tabs 02/14/24 Rx Hospital Stay Data Consultations 02/06/24 18:27 ED Decision to Admit Stat 02/06/24 21:58 Consult Orthopedic Spine Surgery Routine Consult Orthopedic Surgery Routine 02/07/24 16:32 Consult Pain Management Routine Diagnostic Imagining Performed 02/06/24 13:53 CT Abd and Pelvis [CT abd pelvis IV con only] Stat CT cervical spine wo con Stat CT head/brain wo con Stat 02/06/24 18:58 CT lumbar spine wo con Urgent CT thoracic spine wo con Urgent Abdomen/Pelvis CT 02/06/24 13:[address] WITH IV CONTRAST HISTORY: Acute onset abdominal pain status post fall multiple falls w/ abd pain TECHNIQUE: Multiaxial CT images of the abdomen and pelvis were performed following the IV administration of 91 cc of Optiray, A dose lowering technique was utilized adhering to the principles of ALARA. COMPARISON STUDY: 01/06/2024 FINDINGS: Mild interval healing of the subacute mildly displaced posterior right ninth rib fracture with unchanged alignment. Additional healing subacute anterior right eighth rib fracture. Trace right pleural fluid is present. No pneumothorax within the visualized lower chest. T12 compression deformity is chronic. Subacute to chronic right sacral alar fracture appears unchanged. No acute proximal femoral fracture is present. Healed intertrochanteric fracture of the left femur status post internal fixation is present. There is an acute comminuted left acetabular fracture which involves the anterior and superior allen with fracture extension into the left superior pubic ramus. Acute nondi splaced left inferior pubic ramus fractures with healed right pelvic ring fractures. Extensive plaque within the abdominal aorta with high-grade stenosis of the common iliac arteries and areas of chronic appearing internal iliac occlusion.. Unenhanced images of the liver, spleen, adrenal glands, and pancreas demonstrate no acute abnormality. Numerous tiny right renal cysts. There is mild right-sided perinephric stranding with mild pelvocaliectasis and urothelial thickening. Mild urinary bladder wall thickening. Heterogeneous uterus. Mild intrahepatic and extrahepatic biliary ductal dilation. Unremarkable gallbladder. There is no abnormality within the left nephrectomy bed. No evidence for a bowel obstruction. Colonic diverticulosis without evidence for acute diverticulitis. No lymphadenopathy is present. Soft tissue prominence of the left adductor musculature. IMPRESSION: 1. Acute and comminuted nondisplaced left acetabular fractures with additional fractures of the left superior and inferior pubic rami. 2. Healing subacute right-sided rib fractures with unchanged alignment compared to 01/06/2024 3. Right-sided urothelial thickening with pelvocaliectasis suggestive of an ascending infection. Correlate with urinalysis. 4. Unchanged appearance of the subacute to chronic nondisplaced right sacral alar fracture. 5. Additional findings as above. ACT 112: Negative or not required by law. The above report was generated using voice recognition software. It may contain grammatical, syntax or spelling errors. Electronically signed by: Gilmar Royal M.D. 02/06/2024 6:[address] 02/06/24 13:53 CT cervical spine wo con CLINICAL HISTORY: 83 years-old Female with call. Acute head and neck injury status post fall COMPARISON: CT cervical spine 08/26/2020, chest CT 07/02/2022 TECHNIQUE: Multiple axial CT images of the cervical spine were obtained without contrast. A dose lowering technique was utilized adhering to the principles of ALARA. FINDINGS: No acute cervical spine fracture or subluxation identified. No prevertebral edema. There are advanced multilevel degenerative changes. There is 4 mm anterolisthesis of C3 on C4 which is felt to be degenerative. There is spinal stenosis most pronounced the C4-5 level. There is foraminal narrowing most pronounced at the C4-5 and C5-C6 levels. No pneumothorax. Partially imaged left subclavian pacer leads. Mild acute versus subacute T1 compression deformity without retropulsion, which was not present on the 07/02/2022 exam. IMPRESSION: 1. No acute cervical spine fracture or subluxation. 2. Mild acute versus subacute T1 compression deformity without retropulsion. ACT 112: Negative or not required by law. The above report was generated using voice recognition software. It may contain grammatical, syntax or spelling errors. Electronically signed by: Gilmar Royal M.D. 02/06/2024 6:25 PM Chest X-Ray 02/06/24 13:53 XR chest 1V portable HISTORY: 83 years-old Female fall acute chest trauma status post fall COMPARISON: 01/06/2024 TECHNIQUE: AP view the chest FINDINGS: Cardiac silhouette is enlarged. Unchanged positioning of the left subclavian [id number] catheter. Moderate hemidiaphragmatic elevation. Chronic interstitial coarsening. No pneumothorax, pleural effusion or airspace consolidation. Bones appear grossly intact. IMPRESSION: Unchanged appearance of the chest without acute process identified. ACT 112: Negative or not required by law. The above report was generated using voice recognition software. It may contain grammatical, syntax or spelling errors. Electronically signed by: Gilmar Royal M.D. 02/06/2024 2:[address] 02/06/24 13:53 CT head/brain wo con CLINICAL HISTORY: 83 years-old Female with fall. Acute head and neck injury status post fall TECHNIQUE: Multiple axial CT images of the head were obtained without contrast. A dose lowering technique was utilized adhering to the principles of ALARA. CT DOSE: 1689.18 mGy.cm COMPARISON: CT cervical spine same day, head CT 01/06/2024 FINDINGS: No acute intracranial hemorrhage, midline shift, intracranial mass, hydrocephalus, territorial ischemia or abnormal extra-axial collection. Motion degraded exam. Involutional changes with chronic microvascular ischemic disease. The calvarium is intact. Minimal mucosal thickening of the paranasal sinuses. Mastoid air cells are clear. IMPRESSION: No acute intracranial abnormality or calvarial fracture. ACT 112: Negative or not required by law. The above report was generated using voice recognition software. It may contain grammatical, syntax or spelling errors. Electronically signed by: Gilmar Royal M.D. 02/06/2024 6:18 PM Hip/Pelvis X-Ray 02/06/24 13:53 XR hip LT 2V w pelvis CLINICAL HISTORY: Left hip pain following fall. COMPARISON: CT of the abdomen and pelvis January 06, 2024. Pelvis and left hip radiographs July 18, 2019. FINDINGS: Bladder stimulator, pelvic surgical clips and left femoral internal fixation hardware are incidentally noted. Sacroiliac joints and symphysis pubis are intact. There is no acute fracture within the pelvis or hips. There is a healed intertrochanteric fracture of the left femur. IMPRESSION: No acute fractures within the pelvis or hips. ACT 112: Negative or not required by law. Electronically signed by: Lamont Alcazar M.D. 02/06/2024 2:54 PM Knee X-Ray 02/06/24 13:53 XR knee LT 1 or 2V routine CLINICAL HISTORY: l knee TECHNIQUE: 2 views of the left knee were obtained. Comparison: Comparison is made to knee radiographs 07/18/2019 FINDINGS: There is no evidence of an acute fracture. Patient is status post total knee arthroplasty. No perihardware lucency or hardware fracture is seen. No joint effusion is seen. No soft tissue abnormality is seen. IMPRESSION: No acute abnormality. Hardware is satisfactory in appearance. ACT 112: Negative or not required by law. Electronically signed by: Ranjan Garcia M.D. 02/06/2024 2:[address] 02/06/24 18:58 Exam(s): CT L SPINE EXAM: CT Lumbar Spine Without Intravenous Contrast CLINICAL HISTORY: Reason for exam: fall. TECHNIQUE: Axial computed tomography images of the lumbar spine without intravenous contrast. CTDI is 25.89 mGy and DLP is 1266.44 mGy-cm. Automated exposure control was utilized for the study. A dose lowering technique was utilized adhering to the principles of ALARA. COMPARISON: No relevant prior studies available. FINDINGS: Vertebrae: The bones are markedly osteopenic. Marked levocurvature of the lumbar spine. Advanced multilevel degenerative disc disease and facet arthropathy. No acute fracture identified. Chronic appearing superior endplate height loss at T12. Severe spinal canal stenosis at L4- 5. Scattered foraminal stenosis of variable degrees. Soft tissues: Unremarkable. IMPRESSION: 1. No acute appearing fracture. 2. Severe spinal canal stenosis at L4-5. Electronically signed by: Bruce Chowdary MD 02/06/24 20:[address] 02/06/24 18:58 Exam(s): CT T SPINE EXAM: CT Thoracic Spine Without Intravenous Contrast CLINICAL HISTORY: Reason for exam: fall. TECHNIQUE: Axial computed tomography images of the thoracic spine without intravenous contrast. CTDI is 25.89 mGy and DLP is 1266.44 mGy-cm. Automated exposure control was utilized for the study. A dose lowering technique was utilized adhering to the principles of ALARA. COMPARISON: Chest CT 07/02/2022 FINDINGS: Vertebrae: New or worsening compression deformities at T1, T5, T7, T9, and T10. Multiple compression deformities. Some of these were present on the prior. The chronic appearing compression deformities are at T3, T4, T8, and T12. Soft tissues: Unremarkable. IMPRESSION: New or worsening compression deformities at T1, T5, T7, T9, and T10. These may be any combination of acute, subacute, or chronic. There is no significant canal stenosis. Electronically signed by: Bruce Chowdary MD 02/06/24 20:17 PM Discharge Instructions Given to Patient (Per Discharging Provider) Ms. Hou, You were admitted with a UTI and multiple fractures in the setting of recurrent falls. You completed treatment for your UTI in the hospital. We transitioned your pain medications, particularly oxycodone to Nucynta per the recommendations of Pain Management. Please continue with a bowel regimen while on the narcotics. Please continue with meclizine as needed for vertigo. Please keep close follow up with your primary care provider after discharge as well as pain manegment. Please do not hesitate to come back to the emergency room if your symptoms worsen or return. It was a pleasure taking care of you while you were here. Total Time Total Time Spent Total Time Spent (In Minutes): > 30 minutes
== END 2024-02-14 15:15 | DRG 542 ==
LOC: ED 13:44 → EDINP 18:46 → SUATTDRO 18:46 → 2W 21:59